=== PATIENT | male | born 1965 | race African-American/Black ===

== ENCOUNTER 2018-03-20 22:48 | Emergency (ER) | payer SELFPAY ==
[~2018-03-20] VITALS: Ht 185.4 cm; Wt 95.3 kg
[2018-03-20 23:08] VITALS: BP 165/85
[2018-03-20] MEDS ORDERED: PROPARACAINE 0.5% OPHTH SOLUTION 15ML BOTTLE. OS ONE (23:15)
[2018-03-20] MEDS ORDERED: PROPARACAINE/FLUORESCEIN 0.5 ML OPHTH DROPS. OS ONE (23:15)
[2018-03-20] MEDS ORDERED: ERYT1OIN6 OS (23:51)
[2018-03-20] MEDS ORDERED: IBUP-1060 PO (23:51)
--- NOTE | 2018-03-20 23:51 | PHYS DOC ---
Adult General Chief Complaint Chief Complaint: FOREIGN BODY/EYES HPI HPI Patient is a 52 year old male who presents with left eye pain and foreign body sensation. This started at approximately 1800 tonight. There is photophobia. As well as photophobia when light is in his right eye only. Patient was driving when this happened. No trauma. No metal on metal pounding or grinding. Watery discharge is present. Pain is moderate to severe. [] Review of Systems Review of Systems Constitutional: Denies fever or chills [] Eyes: See history of present illness[] HENT: Denies nasal congestion or sore throat [] Respiratory: Denies cough or shortness of breath [] Cardiovascular: No chest pain or palpitations[] GI: Denies abdominal pain, nausea, vomiting, bloody stools or diarrhea [] : Denies dysuria or hematuria [] Musculoskeletal: Denies back pain or joint pain [] Integument: Denies rash or skin lesions [] Neurologic: Denies headache, focal weakness or sensory changes [] Endocrine: Denies polyuria or polydipsia [] All other systems were reviewed and found to be within normal limits, except as documented in this note. Current Medications Current Medications Current Medications Medications (Trade) Dose Ordered Sig/Guy Start Time Stop Time Status Last Admin Dose Admin Proparacaine HCl (Alcaine) 1 drop 1X ONCE 03/20/18 23:15 03/20/18 23:16 Proparacaine HCl/ Fluorescein Sodium (Flucaine Eye Drops) 1 drop 1X ONCE 03/20/18 23:15 03/20/18 23:16 Allergies Allergies Allergies Coded Allergies Type Severity Reaction Last Updated Verified No Known Drug Allergies 03/20/18 No Physical Exam Physical Exam Constitutional: Well developed, well nourished, no acute distress, non-toxic appearance. [] HENT: Normocephalic, atraumatic, bilateral external ears normal, oropharynx moist, no oral exudates, nose normal. [] Eyes: PERRLA, EOMI, conjunctiva is injected on the left. No limbic sparing is noted. There is a cloudy ulcer noted at the 7 to 8 o'clock position with respect to his pupil. There is no dendritic pattern, this does stain with fluoroscein, no Mariano's sign, no cell or flare. Anterior chamber is clear. Patient was evaluated with slit lamp. Fundus was normal. Visual acuity was OS 20 /25, OD 20/25, both eyes 20/20 -1[] Neck: Normal range of motion, no tenderness, supple, no stridor. [] Cardiovascular:Heart rate regular rhythm, no murmur [] Lungs & Thorax: Bilateral breath sounds clear to auscultation [] Abdomen: Not examined[] Skin: Warm, dry, no erythema, no rash. [] Back: Not evaluated. [] Extremities: Not evaluated[] Neurologic: Alert and oriented X 3, normal motor function, normal sensory function, no focal deficits noted. [] Psychologic: Affect normal, judgement normal, mood normal. [] EKG EKG [] Radiology/Procedures Radiology/Procedures [] Course & Med Decision Making Course & Med Decision Making Pertinent Labs and Imaging studies reviewed. (See chart for details) ED course: Patient arrived, was placed in bed, in tolerated exam well. Patient had this slitlamp exam performed without any complications. Fornices were swept with cotton swabs and no foreign body was identified. Consultation was made with ophthalmology. Dr. Cladera returned the call graciously, and recommended treatment with Cipro eyedrops as well as erythromycin just before patient goes to sleep. And he will be followed by Dr. Caldera in the morning. Medical decision making: Patient has an ulcer with history of contact lens use, there is no dendritic pattern consistent with viral, there is no perforation of the globe. There is no foreign body that appears to been retained. No acute change in vision.[] Dragon Disclaimer Dragon Disclaimer This electronic medical record was generated, in whole or in part, using a voice recognition dictation system. Departure Departure Impression: Primary Impression: Corneal ulcer of left eye Disposition: HOME, SELF-CARE Condition: GOOD Referrals: MATILDE CALDERA MD Patient Instructions: Corneal Ulcer Additional Instructions: Follow-up with Dr. Caldera tomorrow. Call the office at 9:00 in the morning, [phone]. Follow the instructions provided. Use the Cipro eyedrops every hour until he go to bed then use erythromycin eye ointment just before going to sleep. Then start the Cipro eyedrops again, every hour, when you wake up. Scripts Ibuprofen (IBUPROFEN) 800 Mg Tablet 800 MG PO PRN TID PRN for PAIN, #20 TAB take with food or milk to avoid upsetting stomach Prov: SHIRLEY DO DO 03/20/18 Erythromycin Base (Erythromycin) 1 Gm Oint...g. 1 LONNIE OS HS, #1 MISC Prov: SHIRLEY DO DO 03/20/18 SHIRLEY DO DO Mar 20, 2018 23:51
[2018-03-21] MEDS ORDERED: CIPROFLOXACIN 0.3% OPHTH SOLUTION 5ML BOTTLE. OS SCH
== END 2018-03-21 00:05 | disposition home or self-care (01) ==
LOC: ER 22:48
DX: H16.002 Unspecified corneal ulcer, left eye (principal)
CPT/HCPCS: 65222; 99284

== ENCOUNTER 2020-03-20 03:17 | Inpatient (IN) | payer MEDICAID, OTHER ==
[~2020-03-20] VITALS: Ht 175.3 cm; Wt 88.2 kg
[2020-03-20] VITALS (28 sets, daily range): BP systolic 69–122; BP diastolic 43–74
[~2020-03-20 03:17] MED LIST: ABAC1TAB13 PO; ACET325T21 PO; ASPI81TA59 PO; ATOR80TA72 PO; CLOP75TA PO; ERYT1OIN6 OS; FURO40TA4 PO; GABA300C18 PO; IBUP-1060 PO; IPRA3AMP29 NEB; LISI10TA16 PO; LORA0.5T96 PO; METO-239 PO; METO25TA4 PO; PANT40TA77 PO; POTA20TA4 PO; TRAM50TA PO
[2020-03-20] MEDS ORDERED: MORPHINE SULFATE 4 MG/ML VIAL. IV PRN (04:45)
[2020-03-20] MEDS ORDERED: fentaNYL PF VIAL 100 MCG/2 ML VIAL IV PRN ×2 (04:45)
[2020-03-20] MEDS ORDERED: MORPHINE SULFATE 2 MG/ML VIAL. IV PRN (04:45)
[2020-03-20] MEDS: NOREPINEPHRINE VIAL 8 MG in IV DEXTROSE 5% 250 ML IV PRN ×2 (05:28→15:43)
[2020-03-20] MEDS: HEPARIN 25,000UTS/250ML PREMIX 250 ML IV PRN (05:29)
[2020-03-20] MEDS: MIDAZOLAM 100mg/100ml NS BAG 100 ML IV PRN ×3 (05:30→23:47)
--- NOTE | 2020-03-20 06:00 | NUR ---
Pt arrived to unit at roughly 0310 accompanied by two EMS personnell on betsy. Pt settled into ICU room and attached to equipment and monitors. Pt with pair of socks, underwear, ripped undershirt. Pt BP low with map in 50's, weak pulses BL radial and pedal, ST with occasional PVC's, S1 and S2 equal at [place] point and strongly auscultated at PMI. Pt attached to ventilator with rate of 20, TV of 500, peep of 5 and FiO2 of 100%. Lung sounds coarse anteriorly throughout and diminished but course posteriorly throughout. GI suarez pt has NG in rt nare with placement confirmed by aspiration, air bolus and auscultation, NG then hooked to LIS. suarez pt has 16 Fr narayanan that was placed at [facility] by ED staff, pt is making satisfactory urine output with over 275mL's of yellow clear micturation in the last 3 hours. Skin suarez pt is unremarkable, with sacral skin intact, and no obvious compromise in skin integrity, pt skin congruent with age and ethnic background. Pt is sedated and intubated and YONI mental/ spiritual well being at this time. At roughly 0327, provider MD Harper paged. At 0355 provider MD Harper paged again. Provider paged this RN back shortly after 0400. Provider updated on pt past medical history, events leading to this hospitalization, diagnoses and reason for hospitalization, current medical interventions, vitals, most recent labs. Provider ordered this RN to consult Cardiology, Pulmonology, and Infectious Disease. Provider also ordered this RN to obtain heightened sedation measures for pt including a Fentanyl Gtt and Versed Gtt, Precedex Gtt, NS fluid orders if needed and Acetaminophen if needed for any future fevers. Provider informed that he could either consult Pulmonology later in the morning or inform dayshift of the situation and have them assume the task. This RN then consulted cardiology at roughly 0430. Provider updated on pt past medical history, events leading to this hospitalization, diagnoses and reason for hospitalization, current medical interventions, vitals, most recent labs. Provider was familiar with pt from recent phone call with staff at [facility] ED and asked for this RN to have dayshift RN reach out to [facility] to obtain medical records for pt. Provider also ordered this RN to secure Levo Gtt for pt and if Levo Gtt was ineffective at maintaining feasible BP for pt, to then start pt on Dopamine Gtt. Provider also ordered CBC, BMP, Trop, Mag, Phos, Cardiac Heparin protocol and Lipid Panel for pt. Will pass on report to dayshift RN and expectations of medical provider team.
[2020-03-20] MEDS: IV NORMAL SALINE 1000ML BAG 1,000 ML IV SCH ×2 (06:30→19:32)
--- NOTE | 2020-03-20 07:41 | PDOC1 ---
History and Physical Date of Admission Date of Admission DATE: 03/20/20 TIME: 07:41 Identification/Chief Complaint Chief Complaint admitted to icu , out of hospial arrest CAD s/p PCI/stent, cardiomyopathy, and prior cardiac arrest, presented secondary to cardiac arrest at home. Was at home with partner, Stevenson, watching television. Patient suddenly started breathing more deeply and began gasping for air. Eyes were wide and glassy. Was unresponsive. Partner was unable to feel pulse so he put him on the floor, called EMS and began chest compressions. Partner reports him drinking 3 malt beverages that evening while watching TV. No known sick contacts. EMS arrived within minutes. ROSC returned following one defibrillation. Although partner declined drug use, Narcan was administered en route due to pinpoint pup ils. Limited effect from the Narcan. UDS was + for cocaine. IS COVID 19 PUI hx cardiac arrest on December 19, 2019. Patient was apparently found arrest in his car EMS noted in v-fib. ROSC was achieved following 1 defibrillation and 1 round of epi.//activated as STEMI with LBBB. Emergent cath notable for blockage of left circumflex. //PCI/BMS to the Left circumflex. went into Vfib in laborer laboratory and was initiated on Amiodarone therapy. LVEF noted at 20-25%. Developed DAIJA due to cardiogenic shock. had multiple episodes of bradycardia/significant pauses mostly related to suctioning. then leadlessPPM placement.Treated for Klebsiella PNA as well. course further complicated by GIB requiring tranfusion. 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 Past Medical History Past Medical History PAST MEDICAL HISTORY Past Medical History HIV, HTN, CAD s/p PCI/BMS to the LCx, GIB from arteriovenous malformation, esophagitis, gastritis, DAIJA requiring HD, bradycardia s/p Leadless PPM PAST SURGICAL HISTORY Past Surgical History: Pacemaker, Tonsillectomy, Other (PCI/stent ) FAMILY HISTORY Family History Other (no pertinent history) SOCIAL HISTORY Social History Smoke: <1 pack per day ALCOHOL: none Drugs: None Lives: with Family (with partner ) Cardiovascular: CAD, HTN, Hyperlipidemia Infectious disease: HIV Past Surgical History Past Surgical History: Pacemaker Family History Family History: Hypertension, Other Social History Smoke: <1 pack per day ALCOHOL: occassional Drugs: None, Cocaine Current Medications Current Medications Current Medications Norepinephrine Bitartrate 8 mg/ Dextrose 258 ml @ 18.247 mls/ hr CONT PRN IV PER PROTOCOL Last administered on 03/20/20at 05:28; Start 03/20/20 at 04:15 Dopamine HCl/ Dextrose 250 ml @ 17.681 mls/ hr CONT PRN IV SEE I/O RECORD; Start 03/20/20 at 04:30 Heparin Sodium/ Dextrose 250 ml @ 0 mls/hr CONT PRN IV PER PROTOCOL Last administered on 03/20/20at 05:29; Start 03/20/20 at 04:30 Heparin Sodium (Porcine) (Heparin Sodium) 2,400 unit PRN Q6HRS PRN IV FOR UFH LEVEL LESS THAN 0.2; Start 03/20/20 at 04:30 Fentanyl Citrate 30 ml @ 0 mls/hr CONT PRN IV SEE PROTOCOL Last administered on 03/20/20at 05:27; Start 03/20/20 at 04:45 Lorazepam (Ativan Inj) 1 mg PRN Q1HR PRN IV SEE COMMENTS; Start 03/20/20 at 04:45 Fentanyl Citrate (Fentanyl 2ml Vial) 25 mcg PRN Q1HR PRN IV SEE COMMENTS; Start 03/20/20 at 04:45 Fentanyl Citrate (Fentanyl 2ml Vial) 50 mcg PRN Q1HR PRN IV SEE COMMENTS; Start 03/20/20 at 04:45 Chlorhexidine Gluconate (Peridex) 15 ml BID MM ; Start 03/20/20 at 09:00; Stop 03/20/20 at 07:24; Status DC Famotidine (Pepcid Vial) 20 mg BID IVP ; Start 03/20/20 at 09:00 Morphine Sulfate (Morphine Sulfate) 2 mg PRN Q1HR PRN IV SEE COMMENTS.; Start 03/20/20 at 04:45 Morphine Sulfate (Morphine Sulfate) 4 mg PRN Q1HR PRN IV SEE COMMENTS.; Start 03/20/20 at 04:45 Midazolam HCl 100 ml @ 0 mls/hr CONT PRN IV SEE PROTOCOL Last administered on 03/20/20at 05:30; Start 03/20/20 at 04:45 Docusate Sodium (Colace Solution) 100 mg BID NG ; Start 03/20/20 at 09:00 Sodium Chloride 1,000 ml @ 75 mls/hr [id number] IV ; Start 03/20/20 at 06:30 Active Scripts Active Furosemide 40 Mg Tablet 40 Mg PO DAILY 90 Days Tramadol Hcl 50 Mg Tablet 50 Mg PO PRN Q6HRS PRN 6 Days Metoprolol Succinate ( Xl ) (Metoprolol Succinate) 25 Mg Tab.er.24h 12.5 Mg PO DAILY 90 Days Clopidogrel (Clopidogrel Bisulfate) 75 Mg Tablet 75 Mg PO [id number] 90 Days Lisinopril 10 Mg Tablet 1 Tab PO DAILY 90 Days Atorvastatin Calcium 80 Mg Tablet 80 Mg PO QHS 90 Days Reported Klor-Con M20 (Potassium Chloride) 20 Meq Tab.er.prt 20 Meq PO TID Pantoprazole Sodium (Pantoprazole Sodium) 40 Mg Tablet.dr 40 Mg PO BID Duoneb 0.5-3(2.5) Mg/3 Ml (Albuterol/Ipratropium) 3 Ml Ampul.neb 3 Ml NEB PRN Q6HRS PRN Acetaminophen 325 Mg Tablet 1 Tab PO PRN Q6HRS PRN 24 Days Triumeq Tablet (Abacavir/Dolutegravir/Lamivudi) 1 Each Tablet 1 Tab PO DAILY 30 Days Gabapentin (Gabapentin) 300 Mg Capsule 100 Mg PO TID Children's Aspirin (Aspirin) 81 Mg Tab.chew 1 Tab PO DAILY 30 Days Allergies Allergies: Coded Allergies: No Known Drug Allergies (Unverified , 01/30/20) ROS Review of System sedated on vent Physical Exam Physical Exam SEDATED ON VENT Heart: Regular rate, Normal S1, Normal S2 Lungs: Clear Abdomen: Normal bowel sounds, Soft, No tenderness, No hepatosplenomegaly, No masses Extremities: No clubbing, No cyanosis, No edema, Normal pulses, No tenderness/swelling Skin: No rashes, No breakdown, No significant lesion Abdomen: Soft Rectal Exam: not examined PELVIC: Examination not indicated Extremities: No cyanosis Vitals Vitals Vital Signs Date Time Temp Pulse Resp B/P (MAP) Pulse Ox O2 Delivery O2 Flow Rate FiO2 03/20/20 06:00 108 20 115/71 (86) 99 Ventilator 03/20/20 03:30 97.9 97.9 VTE Prophylaxis Ordered VTE Prophylaxis Devices: Yes VTE Pharmacological Prophylaxi: Yes Assessment/Plan Assessment/Plan ASSESSMENT 1. out of hospital arrest , witness cardiac arrest; Defibrillation // AMI ruled out. 2. H/o Vfib probable ischemic in nature, antiarrhythmics discontinued in past due to QTc prolongation of 600. 3. Acute hypoxic respiratory failure requiring vent support 4. CAD s/p PCI/BMS to the LCx 12/11/19. Treated with ASA,Brilinta initially, which was held due to recurrent GIB requiring transfusions.Due to recent PCI/BMS, Plavix was resumed while at [facility]. ASA was d/c'd 5. Chronic systolic CHF 6. ischemic cardiomyopathy LVEF 20-25%. 7. SSS s/p leadless PPM 8. Hypertension; // requiring pressor support 9. Hypokalemia, hypomagnesemia 10. H/o DAIJA requiringHD; renal function improvedand HD catheter removed 11. 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 HIV 13. Substance abuse; UDS + cocaine , ALCOHOL, TOBACCO plan icu bed cardiology consult pulm consult Device interrogation Replace Mg, lytes Secondary prevention measures as able Resume Plavix. No ASA due to recent GIB Monitor LFTs Pressor support; wean as able Hold lisinopril, Toprol with hypotension Okay to discontinue heparin from a CV standpoint Echo vent management GI CONSULT COVID 19 SCREEN 45 MIN CC TIME Justifications for Admission Other Justification Failure to Thrive GLADYS FAUSTIN MD Mar 20, 2020 07:41
[2020-03-20 07:49] LABS: BASE EXCESS ABG -3 mmol/L (-3-3); HCO3 ABG 21 mmol/L (21-28); PCO2 ABG 36 mmHg (35-46); PO2 ABG 103 mmHg (75-108); SAT O2 ABG 98 % (92-99)
[2020-03-20] MEDS: DOCUSATE 100 MG/10 ML SOLUTION. NG SCH ×2 (08:07→20:17)
[2020-03-20 08:09] LABS: FIO2 ABG 100%+5
[2020-03-20] MEDS: ACETAMINOPHEN 650 MG/20.3 ML SOLUTION. PEG PRN ×2 (08:55→15:52)
[2020-03-20] MEDS ORDERED: FAMOTIDINE 20 MG/2 ML VIAL IVP SCH ×2 (09:00→11:00)
[2020-03-20] MEDS ORDERED: CHLORHEXIDINE 0.12% 15 ML MOUTHWASH. MM SCH (09:00)
--- NOTE | 2020-03-20 09:15 | PDOC2 ---
GREGORY REYNA DESKTOP TECHNICIAN 03/20/20 0914: CARDIAC CONSULT DATE OF CONSULT Date of Consult DATE: 03/20/20 TIME: 09:13 REASON FOR CONSULT Reason for Consult: Cardiac arrest REFERRING PHYSICIAN Referring Physician: Dr. Harper SOURCE Source: Chart review, Patient HISTORY OF PRESENT ILLNESS HISTORY OF PRESENT ILLNESS This is a 54 yo male, with a history of CAD s/p PCI/stent, cardiomyopathy, and prior cardiac arrest, presented secondary to cardiac arrest at home. Was at home with partner, Stevenson, watching television. Patient suddenly started breathing more deeply and began gasping for air. Eyes were wide and glassy. Was unresponsive. Partner was unable to feel pulse so he put him on the floor, called EMS and b genevieve chest compressions. Partner reports him drinking 3 malt beverages that evening while watching TV. No known sick contacts. EMS arrived within minutes. Rhythm not reported upon their arrival. ROSC returned following one defibrillation. Although partner declined drug use, Narcan was administered en route due to pinpoint pupils. Limited effect from the Narcan. UDS was + for cocaine. WBC 12.5, hgb 10.0. Na 144, K 3.1, Mg 2.0, BUN 5, Cr 1.0. Troponin 0.04. Lactic 5.3. CXR without pulm edema. CT head without acute findings. Patient was treated at [facility] secondary to cardiac arrest on December 19, 2019. Patient was apparently found arrested in his car up against the median. EMS noted in v-fib. ROSC was achieved following 1 defibrillation and 1 round of epi. He was activated as STEMI with LBBB. Emergent cath notable for blockage of left circumflex. Underwent PCI/BMS to the Left circumflex. 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 LVEF noted at 20-25%. Developed DAIJA due to cardiogenic shock. Over the next week, had multiple episodes of bradycardia/significant pauses mostly related to suctioning. UnderwentleadlessPPM placement.Treated for Klebsiella PNA as well. Hospital course further complicated by GIB requiring tranfusion. 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 Due to worsening DAIJA, HD was initiated. Due to recurrent GIB, patient underwent repeat EGD showing esophagitis, gastritis and duodenitis, but all without bleeding. A potential bleeding source in the cecum was clipped and a deep anal rectal ulcer 4 cm in length was noted.Brilinta was held due to recurrent bleeding. ASA, statin, and PPI was continued. Patient was transferred to [facility] for ongoing care. Was followed by our cardiac service while at [facility]. Hemoglobin remained stable. Due to recent PCI/stent placement, patient was placed on Plavix therapy and has had no further bleeding issues. PAST MEDICAL HISTORY Past Medical History HIV, HTN, CAD s/p PCI/BMS to the LCx, GIB from arteriovenous malformation, esophagitis, gastritis, DAIJA requiring HD, bradycardia s/p Leadless PPM PAST SURGICAL HISTORY Past Surgical History: Pacemaker, Tonsillectomy, Other (PCI/stent ) FAMILY HISTORY Family History Other (no pertinent history) SOCIAL HISTORY Social History Smoke: <1 pack per day ALCOHOL: none Drugs: None Lives: with Family (with partner ) CURRENT MEDICATIONS CURRENT MEDICATIONS Current Medications Medications (Trade) Dose Ordered Sig/Guy Route PRN Reason Start Time Stop Time Status Last Admin Dose Admin Norepinephrine Bitartrate 8 mg/ Dextrose 258 ml @ 18.247 mls/ hr CONT PRN IV PER PROTOCOL 03/20/20 04:15 03/20/20 05:28 Heparin Sodium/ Dextrose 250 ml @ 0 mls/hr CONT PRN IV PER PROTOCOL 03/20/20 04:30 03/20/20 05:29 Fentanyl Citrate 30 ml @ 0 mls/hr CONT PRN IV SEE PROTOCOL 03/20/20 04:45 03/20/20 05:27 Famotidine (Pepcid Vial) 20 mg BID IVP 03/20/20 09:00 03/20/20 08:07 Midazolam HCl 100 ml @ 0 mls/hr CONT PRN IV SEE PROTOCOL 03/20/20 04:45 03/20/20 05:30 Docusate Sodium (Colace Solution) 100 mg BID NG 03/20/20 09:00 03/20/20 08:07 Sodium Chloride 1,000 ml @ 75 mls/hr [id number] IV 03/20/20 06:30 03/20/20 06:30 Acetaminophen (Tylenol) 650 mg PRN Q6HRS PRN PEG MILD PAIN / TEMP > 100.3'F 03/20/20 09:00 03/20/20 08:55 ALLERGIES ALLERGIES: Coded Allergies: No Known Drug Allergies (Unverified , 01/30/20) ROS Review of System unobtainable PHYSICAL EXAM General: Other (sedated ) HEENT: Atraumatic Lungs: Other (MV) Heart: Regular rate Abdomen: Soft Extremities: No edema, Normal pulses Skin: No significant lesion Psych/Mental Status: Other (sedated ) MUSCULOSKELETAL: Osteoarthritic changes both hands VITALS/I&O VITALS/I&O: Vital Signs Date Time Temp Pulse Resp B/P (MAP) Pulse Ox O2 Delivery O2 Flow Rate FiO2 03/20/20 07:40 100 Ventilator 03/20/20 07:00 109 20 93/60 (71) 03/20/20 03:30 97.9 97.9 I & O 03/19/20 03/19/20 03/20/20 15:00 23:00 07:00 Output Total 325 ml Balance -325 ml LABS Lab: Laboratory Tests Test 03/20/20 07:40 O2 Saturation 98 % (92-99) Arterial Blood pH 7.39 (7.35-7.45) Arterial Blood pCO2 at Patient Temp 36 mmHg (35-46) Arterial Blood pO2 at Patient Temp 103 mmHg (75-108) Arterial Blood HCO3 21 mmol/L (21-28) Arterial Blood Base Excess -3 mmol/L (-3-3) FiO2 100%+5 ASSESSMENT/PLAN ASSESSMENT/PLAN 1. OOH, witness cardiac arrest; Rhythm upon arrival unknown, although shockable as he was defibrillated x1 with ROSC. 2. Mild troponin elevation; trop highest 0.3 s/p resuscitation. EKG with LBBB 3. H/o Vfib OOH arrest; probable ischemic in nature, antiarrhythmics discontinued in past due to QTc prolongation of 600. EKG at [facility] with QTc 507, 528. 4. Acute respiratory failure secondary to above; s/p intubation 5. CAD s/p PCI/BMS to the LCx 12/11/19. Treated with ASA,Brilinta initially, which was held due to recurrent GIB requiring transfusions.Due to recent PCI/BMS, Plavix was resumed while at [facility]. ASA was discontinued.No further bleeding concerns. 6. Chronic systolic CHF 7. ICM; LVEF 20-25%. 8. SSS s/p leadless PPM implantation ([employer]tronic Micra). Device does not store history rhythm data. 9. Hypertension; low end. requiring pressor support 10. Hypokalemia, hypomagnesemia 11. H/o DAIJA requiringHD; renal function improvedand HD catheter removed 12. 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 HIV 14. Substance abuse; UDS + cocaine at [facility] Recommendations Replace Mg Secondary prevention measures as able Resume Plavix. No ASA due to recent GIB Pressor support; wean as able Hold lisinopril, Toprol with hypotension Continue heparin for at least 24 hrs. Unable to start antiarrhythmic therapy due to prolonged QT Echo to assess LV systolic function Lung optimization, vent management as per pulm Supportive care YAMILE HDEZ MD 03/20/20 1719: CARDIAC CONSULT ASSESSMENT/PLAN ASSESSMENT/PLAN Patient seen and evaluated I agree with our nurse practitioners assessment and plan as above. OOH, witness cardiac arrest; Rhythm upon arrival unknown, although shockable as he was defibrillated x1 with ROSC. Mild troponin elevation; trop highest 0.3 s/p resuscitation. EKG with LBBB. History of coronary artery disease as below. We will check an echo when able for LV function. H/o Vfib OOH arrest; probable ischemic in nature, antiarrhythmics discontinued in past due to QTc prolongation of 600. EKG at [facility] with QTc 507, 528. Unable to start antiarrhythmic treatment due to prolonged QT. Acute respiratory failure secondary to above; s/p intubation CAD s/p PCI/BMS to the LCx 12/11/19. Treated with ASA,Brilinta initially, which was held due to recurrent GIB requiring transfusions.Due to recent PCI/BMS, Plavix was resumed while at [facility]. ASA was discontinued.No further bleeding concerns. ICM; LVEF SSS s/p leadless PPM implantation ([employer]tronic Micra). Device does not store history rhythm data. Hypertension; low end. requiring pressor support HIV Substance abuse; UDS + cocaine at [facility] GREGORY REYNA APRN Mar 20, 2020 09:14 YAMILE HDEZ MD Mar 20, 2020 17:19
[2020-03-20] MEDS ORDERED: PIP/TAZO PER PHARMACY MC PRN (09:30)
[2020-03-20] MEDS ORDERED: MAGNESIUM SULFATE 2GM 50 ML IV ONE (09:45)
[2020-03-20] MEDS: PIPERACILLIN/TAZOBACTAM 3.375 GM in IV NORMAL SALINE 50ML 50 ML IV SCH ×3 (10:21→23:47)
[2020-03-20] MEDS ORDERED: 0.9 % SODIUM CHLORIDE 10 ML DISP.SYRIN. IV PRN (10:30)
--- NOTE | 2020-03-20 11:11 | CONS ---
DATE OF CONSULTATION: REFERRING PHYSICIAN: Dr. Harper. REASON FOR CONSULTATION: Status post cardiac arrest, sepsis. HISTORY OF PRESENT ILLNESS: A 54-year-old male with history of coronary artery disease, status post PCI stent, cardiomyopathy, cardiac arrest on 12/19/2019 at [facility] status post V-Fib STEMI with left bundle branch block emergent cardiac catheterization bare metal stent placement V-Fib amiodarone, status post pacemaker placement, 12/28/2019, necrotizing Klebsiella pneumoniae, HIV, hypertension, coronary artery disease, hyperlipidemia, multiple GI bleeds with AV malformation, esophagitis, gastritis, duodenitis, history of rectal abscess, was at home with his partner watching TV. The patient is currently intubated in ICU. History obtained from chart and medical staff. The patient suddenly started breathing more deeply and began gasping, eyes were wide and glassy. He was unresponsive, partner was unable to feel pulse so put him on the floor. EMS was called, began chest compression. He underwent a CPR, Narcan was administered in route due to pinpoint pupils with minimal effect. UDS was positive for cocaine. WBC was 12.5. Lactate of 5.3, creatinine of 1.0. Troponin of 0.04. Chest x-ray showed no infiltrate. CT without acute findings. He was transferred to [facility] for further evaluation and treatment. The patient has a history of HIV for which he has been on Triumeq. Patient also required hemodialysis during his last hospitalization at [facility] and has had intermittent need for dialysis per the patient's partner report in the past. The patient's last HIV test was done at [facility], CD4 403 on 01/16, viral load of less than 20 on 01/23, the patient received one dose of Zosyn at [place], currently his fever is 101. PAST MEDICAL HISTORY: HIV, stable hypertension, coronary artery disease, status post PCI BM S2, left coronary GI bleed with arteriovenous malformation esophagitis, gastritis, DAIJA, requiring HD status post PPM. PAST SURGICAL HISTORY: Pacemaker PCI. FAMILY HISTORY: Noncontributory. SOCIAL HISTORY: Smoking less than 1 pack per day. ETOH: None. Drugs, cocaine positive on UDS. Lives with partner. CURRENT MEDICATIONS: Norepinephrine, heparin, fentanyl, famotidine, midazolam, docusate, acetaminophen, got one dose of Zosyn at [place]. ALLERGIES: No known drug allergies. REVIEW OF SYSTEMS: Unable to obtain. PHYSICAL EXAMINATION: VITAL SIGNS: Temperature 97.9, current temperature 101, pulse 109, respiratory rate 20, blood pressure 93/60. GENERAL: Intubated, sedated. HEENT: Conjunctival suffusion. Pupils equal, reactive. ETT OGT present. NECK: Supple. LUNGS: Clear anteriorly. HEART: S1, S2, tachycardia. ABDOMEN: Obese, mildly distended. Bowel sounds present. EXTREMITIES: No edema or cyanosis. DERMATOLOGIC: Warm and dry. No generalized rash. NEUROLOGIC: Unable to assess. IMPRESSION: 1. Witnessed cardiac arrest, status post defibrillation. 2. Fever 3. Leukocytosis and lactic acidosis. 4. Human immunodeficiency virus, CD4 was 403 on 01/16 viral load less than 20 on 01/23on Triumeq. 5. Acute hypoxic respiratory failure 6. History of ventricular tachycardia, Coronary artery disease, status post PCI. 7. Status post pacemaker for bradycardia 12/27 at [facility]. 8. History of acute kidney injury, on hemodialysis in the past. 9. 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 10. Substance dependence. UDS positive for cocaine at outside hospital. 11. Hypertension/hyperlipidemia 12. Hypokalemia/hypomagnesemia. 13. H/O Chronic systolic congestive heart failure. 14. History of rectal abscess. 15. History of Necrotizing Pneumonia with Klebsiella at [facility] RECOMMENDATIONS: 1. Start Zosyn. May need renal dosing. 2. Start oral vancomycin for prophylaxis with history of Clostridium difficile. 3. Start Triumeq. Discussed with pharmacy 4. Follow up labs and cultures. 5. Critically ill. CCT 40 mins Discussed with nursing. Thank you for allowing me to participate in this patient's care. If you have any questions, do not hesitate to contact me. MILLY NICOLE MD DR: BENY/bryn JOB#: [id number] / [id number] OLIMPIAD
--- NOTE | 2020-03-20 11:41 | PDOC2 ---
GI CONSULT Date of Service: DATE: 03/20/20 TIME: 11:10 Reason For Consult: recent GI bleed HPI: HPI: 54 y/o male from [facility] after cardiac arrest at home. Per other notes - h/o cardiac arrest treated @ [facility] [place] in 11/2019 w/ emergent cardiac cath/stent placement. Developed GI bleeding during hospitalization; EGD noted duodenal AVM that was clipped. Seems then underwent another EGD and colonoscopy for recurrent bleeding that showed non-bleeding esophagitis, gastritis, and duodenitis, and potential bleeding source in the cecum was clipped and 4cm deep anal rectal ulcer was noted. Brilinta was stopped, ASA and PPI continued, and Plavix added per cardiology @ [facility] w/ stable Hgb and w/o recurrent bleeding. Additional notes mention h/o rectal abscess and C Diff. At [facility], Hgb 10 w/ MCV 83, normal plt and INR, Cr 1, BUN 5, lactic 5.3, normal LFTs except AST 63, +cocaine. D/w nurse - reports KUB @ [facility] w/ possible ileus and negative rapid COVID test. No GI bleeding. [place] 01/2020: dysphagia of the pharyngeal phases with deep laryngeal penetration with thin liquids, successfully addressed with smaller fluid boluses or chin tuck. No evidence of aspiration. PMH: PMH: HIV, HTN, CAD, cardiomyopathy, pneumonia, DAIJA requiring HD pacemaker, tonsillectomy, PCI/stent FH: Family History: Other (unable to obtain) Social History: Smoke: <1 pack per day ALCOHOL: occassional Drugs: Cocaine ROS: Unable to obtain. Vitals: Vitals: Vital Signs Date Time Temp Pulse Resp B/P (MAP) Pulse Ox O2 Delivery O2 Flow Rate FiO2 03/20/20 11:00 87 24 72/47 (55) 100 Ventilator 03/20/20 08:00 103.1 103.1 Labs: Labs: Laboratory Tests Test 03/20/20 07:40 O2 Saturation 98 % (92-99) Arterial Blood pH 7.39 (7.35-7.45) Arterial Blood pCO2 at Patient Temp 36 mmHg (35-46) Arterial Blood pO2 at Patient Temp 103 mmHg (75-108) Arterial Blood HCO3 21 mmol/L (21-28) Arterial Blood Base Excess -3 mmol/L (-3-3) FiO2 100%+5 Allergies: Coded Allergies: No Known Drug Allergies (Unverified , 01/30/20) Medications: Current Medications Medications (Trade) Dose Ordered Sig/Guy Route PRN Reason Start Time Stop Time Status Last Admin Dose Admin Norepinephrine Bitartrate 8 mg/ Dextrose 258 ml @ 18.247 mls/ hr CONT PRN IV PER PROTOCOL 03/20/20 04:15 03/20/20 05:28 Heparin Sodium/ Dextrose 250 ml @ 0 mls/hr CONT PRN IV PER PROTOCOL 03/20/20 04:30 03/20/20 05:29 Fentanyl Citrate 30 ml @ 0 mls/hr CONT PRN IV SEE PROTOCOL 03/20/20 04:45 03/20/20 05:27 Famotidine (Pepcid Vial) 20 mg BID IVP 03/20/20 09:00 03/20/20 08:07 Midazolam HCl 100 ml @ 0 mls/hr CONT PRN IV SEE PROTOCOL 03/20/20 04:45 03/20/20 05:30 Docusate Sodium (Colace Solution) 100 mg BID NG 03/20/20 09:00 03/20/20 08:07 Sodium Chloride 1,000 ml @ 75 mls/hr [id number] IV 03/20/20 06:30 03/20/20 06:30 Acetaminophen (Tylenol) 650 mg PRN Q6HRS PRN PEG MILD PAIN / TEMP > 100.3'F 03/20/20 09:00 03/20/20 08:55 Piperacillin Sod/ Tazobactam Sod 3.375 gm/Sodium Chloride 50 ml @ 100 mls/hr Q6HRS IV 03/20/20 10:00 03/20/20 10:21 Magnesium Sulfate 50 ml @ 25 mls/hr 1X ONCE IV 03/20/20 09:45 03/20/20 11:44 03/20/20 10:21 Imaging: Imaging: CXR 03/20 pending PE: GEN: intubated HEENT: Atraumatic LUNGS: vent/clear HEART: RR ABD: soft and round, quiet - a couple gurgles to right EXTREMITY: No edema SKIN: No rashes, no jaundice NEURO/PSYCH: sedated A/P: A/P: S/p arrest Fever, leukocytosis, lactic acidosis CAD w/ stent, CHF - on Plavix and ASA Anemia H/o GI bleeding - none now - duodenal AVM clipped, possible bleeding source in cecum clipped, and rectal ulcer noted on 'scopes @ [facility] H/o C Diff H/o HIV, +cocaine, rapid COVID negative -- 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 Question of trying NG feeds - will d/w Dr. Barrera/review KUBeltran from [facility]. YNES CLEARY Mar 20, 2020 11:41
[2020-03-20] MEDS: CLOPIDOGREL BISULFATE 75 MG TABLET PO SCH (11:51)
[2020-03-20] MEDS: PANTOPRAZOLE IV PUSH 40 MG VIAL. IVP SCH (12:30)
[2020-03-20 13:49] LABS: BASO # 0.1 x10^3/uL (0.0-0.2); BASO % 0 % (0-3); EOS % 0 % (0-3); HEMATOCRIT 30.1 % (39.0-53.0); HEMOGLOBIN 9.3 g/dL (13.0-17.5); LYMPH # 4.6 x10^3/uL (1.0-4.8); LYMPH % 24 % (24-48); MEAN CORPUSCULAR HEMOGLOBIN 25 pg (25-35); MEAN CORPUSCULAR HGB CONC 31 g/dL (31-37); MEAN CORPUSCULAR VOLUME 80 fL (79-100); MONO # 0.7 x10^3/uL (0.0-1.1); MONO % 4 % (0-9); NEUT % 72 % (31-73); PLATELET COUNT 334 x10^3/uL (140-400); RED BLOOD COUNT 3.76 x10^6/uL (4.30-5.70); RED CELL DISTRIBUTION WIDTH 17.2 % (11.5-14.5); WHITE BLOOD COUNT 19.5 x10^3/uL (4.0-11.0)
[2020-03-20] MEDS ORDERED: POTASSIUM BICARB 20 MEQ EFFERVESCENT TABLET. PEG ONE (14:00)
[2020-03-20 14:14] LABS: ALBUMIN 2.5 g/dL (3.4-5.0); ALBUMIN/GLOBULIN RATIO 0.6 (1.0-1.7); CALCIUM 7.6 mg/dL (8.5-10.1); CHOLESTEROL/HDL RATIO 2.6; CREATININE 1.1 mg/dL (0.7-1.3); GFR 85.1; MAGNESIUM 2.3 mg/dL (1.8-2.4); POTASSIUM 3.4 mmol/L (3.5-5.1); TOTAL BILIRUBIN 0.9 mg/dL (0.2-1.0); TOTAL PROTEIN 6.5 g/dL (6.4-8.2)
--- NOTE | 2020-03-20 14:41 | PDOC ---
PULMONARY PROGRESS NOTES DATE: 03/20/20 TIME: 14:23 Vitals Vital Signs Date Time Temp Pulse Resp B/P (MAP) Pulse Ox O2 Delivery O2 Flow Rate FiO2 03/20/20 14:00 92 24 103/56 (72) 100 Ventilator 03/20/20 12:00 102.1 102.1 Lungs: Clear Labs Laboratory Tests Test 03/20/20 07:40 03/20/20 13:10 O2 Saturation 98 % (92-99) Arterial Blood pH 7.39 (7.35-7.45) Arterial Blood pCO2 at Patient Temp 36 mmHg (35-46) Arterial Blood pO2 at Patient Temp 103 mmHg (75-108) Arterial Blood HCO3 21 mmol/L (21-28) Arterial Blood Base Excess -3 mmol/L (-3-3) FiO2 100%+5 White Blood Count 19.5 x10^3/uL (4.0-11.0) Red Blood Count 3.76 x10^6/uL (4.30-5.70) Hemoglobin 9.3 g/dL (13.0-17.5) Hematocrit 30.1 % (39.0-53.0) Mean Corpuscular Volume 80 fL (79-100) Mean Corpuscular Hemoglobin 25 pg (25-35) Mean Corpuscular Hemoglobin Concent 31 g/dL (31-37) Red Cell Distribution Width 17.2 % (11.5-14.5) Platelet Count 334 x10^3/uL (140-400) Neutrophils (%) (Auto) 72 % (31-73) Lymphocytes (%) (Auto) 24 % (24-48) Monocytes (%) (Auto) 4 % (0-9) Eosinophils (%) (Auto) 0 % (0-3) Basophils (%) (Auto) 0 % (0-3) Neutrophils # (Auto) 14.0 x10^3/uL (1.8-7.7) Lymphocytes # (Auto) 4.6 x10^3/uL (1.0-4.8) Monocytes # (Auto) 0.7 x10^3/uL (0.0-1.1) Eosinophils # (Auto) 0.0 x10^3/uL (0.0-0.7) Basophils # (Auto) 0.1 x10^3/uL (0.0-0.2) Sodium Level 142 mmol/L (136-145) Potassium Level 3.4 mmol/L (3.5-5.1) Chloride Level 108 mmol/L (98-107) Carbon Dioxide Level 23 mmol/L (21-32) Anion Gap 11 (6-14) Blood Urea Nitrogen 9 mg/dL (8-26) Creatinine 1.1 mg/dL (0.7-1.3) Estimated GFR (Cockcroft-Gault) 85.1 BUN/Creatinine Ratio 8 (6-20) Glucose Level 150 mg/dL (70-99) Calcium Level 7.6 mg/dL (8.5-10.1) Magnesium Level 2.3 mg/dL (1.8-2.4) Total Bilirubin 0.9 mg/dL (0.2-1.0) Aspartate Amino Transf (AST/SGOT) 36 U/L (15-37) Alanine Aminotransferase (ALT/SGPT) 23 U/L (16-63) Alkaline Phosphatase 82 U/L (46-116) Lactate Dehydrogenase 428 U/L (85-227) Troponin I Quantitative 0.398 ng/mL (0.000-0.055) Total Protein 6.5 g/dL (6.4-8.2) Albumin 2.5 g/dL (3.4-5.0) Albumin/Globulin Ratio 0.6 (1.0-1.7) Triglycerides Level 50 mg/dL (0-150) Cholesterol Level 84 mg/dL (0-200) LDL Cholesterol, Calculated 42 mg/dL (0-100) VLDL Cholesterol, Calculated 10 mg/dL (0-40) Non-HDL Cholesterol Calculated 52 mg/dL (0-129) HDL Cholesterol 32 mg/dL (40-60) Cholesterol/HDL Ratio 2.6 Thyroid Stimulating Hormone (TSH) 0.564 uIU/mL (0.358-3.74) Laboratory Tests Test 03/20/20 07:40 03/20/20 13:10 O2 Saturation 98 % (92-99) Arterial Blood pH 7.39 (7.35-7.45) Arterial Blood pCO2 at Patient Temp 36 mmHg (35-46) Arterial Blood pO2 at Patient Temp 103 mmHg (75-108) Arterial Blood HCO3 21 mmol/L (21-28) Arterial Blood Base Excess -3 mmol/L (-3-3) FiO2 100%+5 White Blood Count 19.5 x10^3/uL (4.0-11.0) Red Blood Count 3.76 x10^6/uL (4.30-5.70) Hemoglobin 9.3 g/dL (13.0-17.5) Hematocrit 30.1 % (39.0-53.0) Mean Corpuscular Volume 80 fL (79-100) Mean Corpuscular Hemoglobin 25 pg (25-35) Mean Corpuscular Hemoglobin Concent 31 g/dL (31-37) Red Cell Distribution Width 17.2 % (11.5-14.5) Platelet Count 334 x10^3/uL (140-400) Neutrophils (%) (Auto) 72 % (31-73) Lymphocytes (%) (Auto) 24 % (24-48) Monocytes (%) (Auto) 4 % (0-9) Eosinophils (%) (Auto) 0 % (0-3) Basophils (%) (Auto) 0 % (0-3) Neutrophils # (Auto) 14.0 x10^3/uL (1.8-7.7) Lymphocytes # (Auto) 4.6 x10^3/uL (1.0-4.8) Monocytes # (Auto) 0.7 x10^3/uL (0.0-1.1) Eosinophils # (Auto) 0.0 x10^3/uL (0.0-0.7) Basophils # (Auto) 0.1 x10^3/uL (0.0-0.2) Sodium Level 142 mmol/L (136-145) Potassium Level 3.4 mmol/L (3.5-5.1) Chloride Level 108 mmol/L (98-107) Carbon Dioxide Level 23 mmol/L (21-32) Anion Gap 11 (6-14) Blood Urea Nitrogen 9 mg/dL (8-26) Creatinine 1.1 mg/dL (0.7-1.3) Estimated GFR (Cockcroft-Gault) 85.1 BUN/Creatinine Ratio 8 (6-20) Glucose Level 150 mg/dL (70-99) Calcium Level 7.6 mg/dL (8.5-10.1) Magnesium Level 2.3 mg/dL (1.8-2.4) Total Bilirubin 0.9 mg/dL (0.2-1.0) Aspartate Amino Transf (AST/SGOT) 36 U/L (15-37) Alanine Aminotransferase (ALT/SGPT) 23 U/L (16-63) Alkaline Phosphatase 82 U/L (46-116) Lactate Dehydrogenase 428 U/L (85-227) Troponin I Quantitative 0.398 ng/mL (0.000-0.055) Total Protein 6.5 g/dL (6.4-8.2) Albumin 2.5 g/dL (3.4-5.0) Albumin/Globulin Ratio 0.6 (1.0-1.7) Triglycerides Level 50 mg/dL (0-150) Cholesterol Level 84 mg/dL (0-200) LDL Cholesterol, Calculated 42 mg/dL (0-100) VLDL Cholesterol, Calculated 10 mg/dL (0-40) Non-HDL Cholesterol Calculated 52 mg/dL (0-129) HDL Cholesterol 32 mg/dL (40-60) Cholesterol/HDL Ratio 2.6 Thyroid Stimulating Hormone (TSH) 0.564 uIU/mL (0.358-3.74) Medications Active Scripts Medications Dose Route/Sig Max Daily Dose Days Date Category Furosemide 40 Mg Tablet 40 Mg PO DAILY 02/02/20 Rx Tramadol Hcl 50 Mg Tablet 50 Mg PO PRN Q6HRS PRN 6 02/02/20 Rx Metoprolol Succinate ( Xl ) (Metoprolol Succinate) 25 Mg Tab.er.24h 12.5 Mg PO DAILY 02/02/20 Rx Clopidogrel (Clopidogrel Bisulfate) 75 Mg Tablet 75 Mg PO DAILYWBKFT 02/02/20 Rx Lisinopril 10 Mg Tablet 1 Tab PO DAILY 02/02/20 Rx Atorvastatin Calcium 80 Mg Tablet 80 Mg PO QHS 02/02/20 Rx Klor-Con M20 (Potassium Chloride) 20 Meq Tab.er.prt 20 Meq PO TID 01/31/20 Reported Pantoprazole Sodium (Pantoprazole Sodium) 40 Mg Tablet.dr 40 Mg PO BID 01/31/20 Reported Duoneb 0.5-3(2.5) Mg/3 Ml (Albuterol/Ipratropium) 3 Ml Ampul.neb 3 Ml NEB PRN Q6HRS PRN 01/31/20 Reported Acetaminophen 325 Mg Tablet 1 Tab PO PRN Q6HRS PRN 24 01/31/20 Reported Triumeq Tablet (Abacavir/Dolutegravir/Lamivudi) 1 Each Tablet 1 Tab PO DAILY 30 01/31/20 Reported Gabapentin (Gabapentin) 300 Mg Capsule 100 Mg PO TID 01/31/20 Reported Children's Aspirin (Aspirin) 81 Mg Tab.chew 1 Tab PO DAILY 30 01/31/20 Reported Impression . Full note dictated Out of hospital cardiopulmonary arrest, respiratory failure secondary to arrhythmia, coronary artery disease, CHF. Possible pneumonia DAMIÁN HASTINGS MD Mar 20, 2020 14:41
[2020-03-20 14:49] LABS: % BANDS 13 % (0-9); % LYMPHS 22 % (24-48); ANISOCYTOSIS SLIGHT; HYPOCHROMIA SLIGHT; PLT ESTIMATE ADEQUATE (ADEQUATE); POIKILOCYTOSIS SLIGHT
[2020-03-20 14:50] LABS: % MONOS 1 % (0-10); % SEGS 64 % (35-66)
--- NOTE | 2020-03-20 15:06 | RAD ---
Single view of the chest. 03/20/2020 10:11 AM Indication: Reason: post code / Spl. Instructions: / History: Comparison: Chest radiograph January 30, 2020 Findings: There is an endotracheal tube approximately 4.9 cm above the chica. There is an enteric tu be extending below the diaphragm. There is no pneumothorax. No definitive effusion is seen. The heart is markedly enlarged, and mildly more prominent than on comparison study. There is central vascular congestion with interstitial thickening and patchy alveolar infiltrates throughout the bilateral lung s. The appearance most likely reflects pulmonary edema in the setting of heart failure. Note that an infectious process cannot be excluded radiographically. Cardiac monitoring device projects over the heart. No acute osseous changes are identified. IMPRESSION: 1.Interval intubation and placement of enteric tube as described in expected radiographic position 2. Cardiomegaly, central vascular congestion, interstitial thickening, and patchy alveolar infiltrate s throughout the lungs. As described above, appearance favors pulmonary edema setting of heart fail ure. Electronically signed by: Lukas Whitehead MD (03/20/2020 3:03 PM) [id number]
--- NOTE | 2020-03-20 15:18 | NUR ---
SS following for discharge planning. SS reviewed pt chart and discussed with pt RN. Pt is from home and is currently on the vent at 90%. Pt on IV Zosyn. Not stable. SS will continue to follow for discharge planning.
--- NOTE | 2020-03-20 15:52 | CONS ---
DATE OF CONSULTATION: 03/20/2020 ATTENDING PHYSICIAN: Abdon Kendall MD CONSULTING PHYSICIAN: Damián Hastings MD REASON FOR CONSULTATION: The patient is seen in pulmonary consultation at the request of Dr. Kendall for acute respiratory failure. HISTORY OF PRESENT ILLNESS: The patient is a 54-year-old that has a history of coronary artery disease, status post previous stent placement; cardiomyopathy; 5 cardiac arrests, presented after having an [id number] cardiopulmonary arrest. According to the current documentation, the patient was watching television, suddenly became to have some difficulty breathing, gasping for air. He became unresponsive. The partner at home was unable to feel pulse. EMR was summoned, chest compression was started. Upon EMS arrival, return of spontaneous circulation was obtained after 1 defibrillation. There is no history of any drug use. UDS was positive for cocaine. The patient is currently in the intensive care unit on mechanical ventilation. He has been seen by Cardiology. The patient has a prior history of being treated at [facility] after suffering a cardiac arrest on 12/18. He has a prior history of AFib, previous non-ST segment elevation VT. He has had previous emergent cardiac catheterization. He has also had a previous pacemaker implantation. He has had a prolonged hospitalization and at one point, he was hospitalized at [facility], treated for Klebsiella pneumonia, previous GI bleed, requiring transfusion. He has had EGD that noted duodenal AV malformation requiring clipping. He also had acute kidney injury, was on hemodialysis in the past. PAST MEDICAL HISTORY: HIV; hypertension; coronary artery disease, status post previous PCI and pacemaker implantation. He has a history of acute kidney injury, esophagitis, GI bleed. PAST SURGICAL HISTORY: Status post pacemaker and tonsillectomy, PCI and stent placement. FAMILY HISTORY: Unknown. SOCIAL HISTORY: There is a history of tobacco use. REVIEW OF SYSTEMS: Unobtainable secondary to the patient's condition. PHYSICAL EXAMINATION: VITAL SIGNS: Stable. O2 saturation was greater than 92%, currently on assist control ventilation, rate of 20, tidal volume 500. HEENT: Eyes, the sclerae were nonicteric. NECK: Jugular venous could not be assessed secondary to body habitus. CHEST: Full expansion. LUNGS: Adequate flow with no wheezes. CARDIOVASCULAR: Regular rate and rhythm with S1, S2, no S3. ABDOMEN: Soft. EXTREMITIES: No clubbing, cyanosis, some edema. LABORATORY DATA: Reviewed. White count was elevated. Hemoglobin and hematocrit were noted. Electrolytes were noted. Arterial blood gas: pH of 7.39, PaCO2 of 36, pO2 of 103. Chest x-ray revealed bilateral pulmonary infiltrates. IMPRESSION: 1. Acute hypoxemic respiratory failure secondary to qyr-ml-exwfesch cardiopulmonary arrest. 2. History of ventricular fibrillation with previous cnp-ij-sghvpldw cardiac arrest. 3. History of coronary artery disease, status post percutaneous coronary intervention to the circumflex. 4. History of gastrointestinal bleed. 5. Chronic systolic heart failure. 6. Ischemic cardiomyopathy, ejection fraction 20-25%. 7. Status post pacemaker implantation. 8. Hypertension. 9. Hypokalemia. 10. Previous kidney injury requiring hemodialysis. 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 12. Human immunodeficiency virus. 13. Polysubstance use. PLAN: 1. Continue current support with mechanical ventilation. Arterial blood gas revealed pH of 7.39, PaCO2 of 36, pO2 of 103, decrease FiO2 as tolerated. 2. Consult Cardiology, already performed. 3. Empiric antibiotics. 4. Consult GI. 5. Replace magnesium. 6. Anticoagulation per Cardiology. 7. Pressors for mean arterial pressure above 60. I do appreciate the privilege in sharing in the patient's care. DAMIÁN HASTINGS MD DR: LUPE/bryn JOB#: [id number] / [id number]
[2020-03-20] MEDS: ABACAVIR PO SCH (17:10)
[2020-03-20] MEDS: DOLUTEGRAVIR PO SCH (17:10)
[2020-03-20] MEDS: LAMIVUDINE PO SCH (17:10)
[2020-03-20] MEDS: ATORVASTATIN CALCIUM 40 MG TABLET. PO SCH (20:17)
[2020-03-20] MEDS: VANCOMYCIN 125 MG/2.5 ML ORAL SOLUTION. PO SCH (21:38)
[2020-03-20] MEDS: HEPARIN for IV BOLUS 10,000 UNIT/10 ML VIAL. IV PRN (23:05)
[2020-03-21] VITALS (28 sets, daily range): BP systolic 80–119; BP diastolic 52–89
[2020-03-21] MEDS: ACETAMINOPHEN 650 MG/20.3 ML SOLUTION. PEG PRN ×2 (02:19→16:33)
--- NOTE | 2020-03-21 04:29 | RAD ---
XR CHEST 1V 03/21/2020 4:13 AM INDICATION: Hypoxia COMPARISON: 03/20/2020 TECHNIQUE: Portable frontal view of the chest is provided. FINDINGS: The cardiomediastinal silhouette is enlarged, stable. Endotracheal tube, nasogastric tube are in melanie lar position. There is moderate pulmonary vascular congestion, stable. Small left pleural effusion wi th adjacent compressive atelectasis versus infiltrate. No pneumothorax. No suspicious osseous abnormality. IMPRESSION: Aeration of the lungs appears similar to the prior examination. Support lines and tubes are in simila r position. Electronically signed by: Lorene Baez MD (03/21/2020 4:26 AM) BETH
[2020-03-21 04:58] LABS: BASO # 0.1 x10^3/uL (0.0-0.2); BASO % 1 % (0-3); EOS # 0.2 x10^3/uL (0.0-0.7); EOS % 1 % (0-3); HEMOGLOBIN 9.1 g/dL (13.0-17.5); LYMPH # 2.7 x10^3/uL (1.0-4.8); LYMPH % 16 % (24-48); MEAN CORPUSCULAR HEMOGLOBIN 25 pg (25-35); MEAN CORPUSCULAR HGB CONC 31 g/dL (31-37); MEAN CORPUSCULAR VOLUME 80 fL (79-100); MONO # 0.7 x10^3/uL (0.0-1.1); MONO % 4 % (0-9); NEUT # 13.4 x10^3/uL (1.8-7.7); NEUT % 78 % (31-73); PLATELET COUNT 307 x10^3/uL (140-400); RED BLOOD COUNT 3.65 x10^6/uL (4.30-5.70); RED CELL DISTRIBUTION WIDTH 17.4 % (11.5-14.5); WHITE BLOOD COUNT 17.2 x10^3/uL (4.0-11.0)
[2020-03-21 05:10] LABS: PROTHROMBIN TIME PATIENT 16.5 SEC (11.7-14.0)
[2020-03-21 05:14] LABS: ALBUMIN 2.4 g/dL (3.4-5.0); ALBUMIN/GLOBULIN RATIO 0.6 (1.0-1.7); CALCIUM 7.7 mg/dL (8.5-10.1); CREATININE 0.8 mg/dL (0.7-1.3); GFR 122.8; POTASSIUM 3.6 mmol/L (3.5-5.1); TOTAL BILIRUBIN 1.2 mg/dL (0.2-1.0); TOTAL PROTEIN 6.4 g/dL (6.4-8.2)
[2020-03-21] MEDS: HEPARIN for IV BOLUS 10,000 UNIT/10 ML VIAL. IV PRN ×2 (05:19→14:17)
[2020-03-21] MEDS: PIPERACILLIN/TAZOBACTAM 3.375 GM in IV NORMAL SALINE 50ML 50 ML IV SCH ×4 (05:41→23:53)
--- NOTE | 2020-03-21 07:24 | PDOC ---
Infectious Disease Note Subjective: Subjective Patient intubated/sedated T-max 101 No acute issues per discussion with RN Vital Signs: Vital Signs Vital Signs Date Time Temp Pulse Resp B/P (MAP) Pulse Ox O2 Delivery O2 Flow Rate FiO2 03/21/20 07:00 94 24 100/63 (75) 100 Ventilator 03/21/20 06:00 99.9 99.9 Physical Exam: PHYSICAL EXAM GENERAL: Intubated, sedated. HEENT: Conjunctival suffusion. Pupils equal, reactive. ETT OGT present. NECK: Supple. LUNGS: Clear anteriorly. HEART: S1, S2, tachycardia. ABDOMEN: Obese, mildly distended. Bowel sounds present. EXTREMITIES: No edema or cyanosis. DERMATOLOGIC: Warm and dry. No generalized rash. NEUROLOGIC: Unable to assess. Medications: Inpatient Meds: Current Medications Medications (Trade) Dose Ordered Sig/Guy Start Time Stop Time Status Last Admin Dose Admin Acetaminophen (Tylenol) 650 mg PRN Q6HRS PRN 03/20/20 09:00 03/21/20 02:19 650 MG Atorvastatin Calcium (Lipitor) 80 mg QHS 03/20/20 21:00 03/20/20 20:17 80 MG Chlorhexidine Gluconate (Peridex) 15 ml BID 03/20/20 09:00 03/20/20 07:24 DC Clopidogrel Bisulfate (Plavix) 75 mg DAILYWBKFT 03/20/20 12:00 03/20/20 11:51 75 MG Docusate Sodium (Colace Solution) 100 mg BID 03/20/20 09:00 03/20/20 20:17 100 MG Dopamine HCl/ Dextrose 250 ml @ 17.681 mls/ hr CONT PRN 03/20/20 04:30 Famotidine (Pepcid Vial) 20 mg BID 03/20/20 11:00 03/20/20 12:35 DC Fentanyl Citrate (Fentanyl 2ml Vial) 50 mcg PRN Q1HR PRN 03/20/20 04:45 Heparin Sodium (Porcine) (Heparin Sodium) 2,400 unit PRN Q6HRS PRN 03/20/20 04:30 03/21/20 05:19 2,400 UNIT Heparin Sodium/ Dextrose 250 ml @ 0 mls/hr CONT PRN 03/20/20 04:30 03/20/20 05:29 19.8 MLS/HR Info ([facility] Electrolyte Protocol) 1 ea DAILY 03/21/20 09:00 Lorazepam (Ativan Inj) 1 mg PRN Q1HR PRN 03/20/20 04:45 Magnesium Sulfate 50 ml @ 25 mls/hr 1X ONCE 03/20/20 09:45 03/20/20 11:44 DC 03/20/20 10:21 25 MLS/HR Midazolam HCl 100 ml @ 0 mls/hr CONT PRN 03/20/20 04:45 03/20/20 23:47 10 MLS/HR Morphine Sulfate (Morphine Sulfate) 4 mg PRN Q1HR PRN 03/20/20 04:45 Non-Formulary Medication (ABACAVIR/ DOLUTEGRAVIR/ LAMIVUDINE (Triumeq) tablet) 1 ea DAILY 03/20/20 17:00 03/20/20 17:10 1 EA Norepinephrine Bitartrate 8 mg/ Dextrose 258 ml @ 18.247 mls/ hr CONT PRN 03/20/20 04:15 03/20/20 15:43 32.845 MLS/HR Ondansetron HCl (Zofran) 4 mg PRN Q6HRS PRN 03/20/20 10:30 Pantoprazole Sodium (PROTONIX VIAL for IV PUSH) 40 mg DAILYAC 03/20/20 12:30 Piperacillin Sod/ Tazobactam Sod (Zosyn Per Pharmacy) 1 each PRN DAILY PRN 03/20/20 09:30 Piperacillin Sod/ Tazobactam Sod 3.375 gm/Sodium Chloride 50 ml @ 100 mls/hr Q6HRS 03/20/20 10:00 03/21/20 05:41 100 MLS/HR Potassium Bicarbonate (Potassium Effervescent Tablet) 40 meq 1X ONCE 03/20/20 14:00 03/20/20 14:20 DC 03/20/20 14:47 40 MEQ Sodium Chloride (Normal Saline Flush) 3 ml QSHIFT PRN 03/20/20 10:30 Vancomycin HCl (Vancomycin Oral Solution) 125 mg BID 03/20/20 21:30 03/20/20 21:38 125 MG Labs: Lab Laboratory Tests Test 03/20/20 07:40 03/20/20 13:10 03/20/20 22:10 03/21/20 04:53 O2 Saturation 98 % (92-99) Arterial Blood pH 7.39 (7.35-7.45) Arterial Blood pCO2 at Patient Temp 36 mmHg (35-46) Arterial Blood pO2 at Patient Temp 103 mmHg (75-108) Arterial Blood HCO3 21 mmol/L (21-28) Arterial Blood Base Excess -3 mmol/L (-3-3) FiO2 100%+5 White Blood Count 19.5 x10^3/uL (4.0-11.0) 17.2 x10^3/uL (4.0-11.0) Red Blood Count 3.76 x10^6/uL (4.30-5.70) 3.65 x10^6/uL (4.30-5.70) Hemoglobin 9.3 g/dL (13.0-17.5) 9.1 g/dL (13.0-17.5) Hematocrit 30.1 % (39.0-53.0) 29.0 % (39.0-53.0) Mean Corpuscular Volume 80 fL (79-100) 80 fL (79-100) Mean Corpuscular Hemoglobin 25 pg (25-35) 25 pg (25-35) Mean Corpuscular Hemoglobin Concent 31 g/dL (31-37) 31 g/dL (31-37) Red Cell Distribution Width 17.2 % (11.5-14.5) 17.4 % (11.5-14.5) Platelet Count 334 x10^3/uL (140-400) 307 x10^3/uL (140-400) Neutrophils (%) (Auto) 72 % (31-73) 78 % (31-73) Lymphocytes (%) (Auto) 24 % (24-48) 16 % (24-48) Monocytes (%) (Auto) 4 % (0-9) 4 % (0-9) Eosinophils (%) (Auto) 0 % (0-3) 1 % (0-3) Basophils (%) (Auto) 0 % (0-3) 1 % (0-3) Neutrophils # (Auto) 14.0 x10^3/uL (1.8-7.7) 13.4 x10^3/uL (1.8-7.7) Lymphocytes # (Auto) 4.6 x10^3/uL (1.0-4.8) 2.7 x10^3/uL (1.0-4.8) Monocytes # (Auto) 0.7 x10^3/uL (0.0-1.1) 0.7 x10^3/uL (0.0-1.1) Eosinophils # (Auto) 0.0 x10^3/uL (0.0-0.7) 0.2 x10^3/uL (0.0-0.7) Basophils # (Auto) 0.1 x10^3/uL (0.0-0.2) 0.1 x10^3/uL (0.0-0.2) Segmented Neutrophils % 64 % (35-66) Band Neutrophils % 13 % (0-9) Lymphocytes % 22 % (24-48) Monocytes % 1 % (0-10) Platelet Estimate Adequate (ADEQUATE) Hypochromasia Slight Poikilocytosis Slight Anisocytosis Slight Sodium Level 142 mmol/L (136-145) 142 mmol/L (136-145) Potassium Level 3.4 mmol/L (3.5-5.1) 3.6 mmol/L (3.5-5.1) Chloride Level 108 mmol/L (98-107) 108 mmol/L (98-107) Carbon Dioxide Level 23 mmol/L (21-32) 24 mmol/L (21-32) Anion Gap 11 (6-14) 10 (6-14) Blood Urea Nitrogen 9 mg/dL (8-26) 8 mg/dL (8-26) Creatinine 1.1 mg/dL (0.7-1.3) 0.8 mg/dL (0.7-1.3) Estimated GFR (Cockcroft-Gault) 85.1 122.8 BUN/Creatinine Ratio 8 (6-20) 10 (6-20) Glucose Level 150 mg/dL (70-99) 118 mg/dL (70-99) Calcium Level 7.6 mg/dL (8.5-10.1) 7.7 mg/dL (8.5-10.1) Magnesium Level 2.3 mg/dL (1.8-2.4) Total Bilirubin 0.9 mg/dL (0.2-1.0) 1.2 mg/dL (0.2-1.0) Aspartate Amino Transf (AST/SGOT) 36 U/L (15-37) 27 U/L (15-37) Alanine Aminotransferase (ALT/SGPT) 23 U/L (16-63) 22 U/L (16-63) Alkaline Phosphatase 82 U/L (46-116) 80 U/L (46-116) Lactate Dehydrogenase 428 U/L (85-227) Troponin I Quantitative 0.398 ng/mL (0.000-0.055) [id number]-Type Natriuretic Peptide 3415 pg/mL (0-124) Total Protein 6.5 g/dL (6.4-8.2) 6.4 g/dL (6.4-8.2) Albumin 2.5 g/dL (3.4-5.0) 2.4 g/dL (3.4-5.0) Albumin/Globulin Ratio 0.6 (1.0-1.7) 0.6 (1.0-1.7) Triglycerides Level 50 mg/dL (0-150) Cholesterol Level 84 mg/dL (0-200) LDL Cholesterol, Calculated 42 mg/dL (0-100) VLDL Cholesterol, Calculated 10 mg/dL (0-40) Non-HDL Cholesterol Calculated 52 mg/dL (0-129) HDL Cholesterol 32 mg/dL (40-60) Cholesterol/HDL Ratio 2.6 Thyroid Stimulating Hormone (TSH) 0.564 uIU/mL (0.358-3.74) Heparin Anti-Xa Act, Unfractionated < 0.10 IU/mL (0.30-0.70) < 0.10 IU/mL (0.30-0.70) Prothrombin Time 16.5 SEC (11.7-14.0) Prothromb Time International Ratio 1.4 (0.8-1.1) Activated Partial Thromboplast Time 66 SEC (24-38) Objective: Assessment: 1. Fever, likely aspiration. UA negative 2. Witnessed cardiac arrest, status post defibrillation. 3. Leukocytosis and lactic acidosis. 4. Human immunodeficiency virus, CD4 was 403 on 01/16 viral load less than 20 on Triumeq. 5. Acute hypoxic respiratory failure 6. History of ventricular tachycardia, Coronary artery disease, status post PCI. 7. 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 8. History of acute kidney injury, on hemodialysis in the past. 9. 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 10. Substance dependence. UDS positive for cocaine at outside hospital. 11. Hypertension/hyperlipidemia 12. Hypokalemia/hypomagnesemia. 13. H/O Chronic systolic congestive heart failure. 14. History of rectal abscess. 15. History of Necrotizing Pneumonia with Klebsiella at [facility] November 2019 Plan: Plan of Care Continue Zosyn Add Zyvox Continue p.o. vancomycin for prophylaxis with history of recurrent C. difficile Continue Triumeq Follow up labs and cultures. Critically ill. Discussed with nursing. MILLY NICOLE MD Mar 21, 2020 07:24
[2020-03-21] MEDS: ABACAVIR PO SCH (07:38)
[2020-03-21] MEDS: CLOPIDOGREL BISULFATE 75 MG TABLET PO SCH (07:38)
[2020-03-21] MEDS: PANTOPRAZOLE IV PUSH 40 MG VIAL. IVP SCH (07:38)
[2020-03-21] MEDS: DOCUSATE 100 MG/10 ML SOLUTION. NG SCH ×2 (07:38→21:03)
[2020-03-21] MEDS: DOLUTEGRAVIR PO SCH (07:38)
[2020-03-21] MEDS: LAMIVUDINE PO SCH (07:38)
[2020-03-21] MEDS: VANCOMYCIN 125 MG/2.5 ML ORAL SOLUTION. PO SCH ×2 (07:39→21:02)
[2020-03-21] MEDS: HEPARIN 25,000UTS/250ML PREMIX 250 ML IV PRN ×2 (08:13→22:15)
[2020-03-21 08:33] LABS: BASE EXCESS ABG -3 mmol/L (-3-3); CORRECTED PCO2 ABG 36 mmHg; CORRECTED PH ABG 7.39; CORRECTED PO2 ABG 96 mmHg; HCO3 ABG 21 mmol/L (21-28); PCO2 ABG 34 mmHg (35-46); PO2 ABG 88 mmHg (75-108); SAT O2 ABG 97 % (92-99)
[2020-03-21 08:35] LABS: FIO2 ABG 70/VENT
[2020-03-21] MEDS: ELECTROLYTE (ICU) PROTOCOL. MC SCH (08:37)
--- NOTE | 2020-03-21 08:58 | PDOC ---
PROGRESS NOTES Date of Service: DATE: 03/21/20 TIME: 08:57 Chief Complaint Chief Complaint VTE Prophylaxis Ordered VTE Prophylaxis Devices: Yes VTE Pharmacological Prophylaxi: Yes Assessment/Plan Assessment/Plan ASSESSMENT 1. out of hospital arrest , witness cardiac arrest; Defibrillation // AMI ruled out. 2. H/o Vfib probable ischemic in nature, antiarrhythmics discontinued in past due to QTc prolongation of 600. 3. Acute hypoxic respiratory failure requiring vent support 4. CAD s/p PCI/BMS to the LCx 12/11/19. Treated with ASA,Brilinta initially, which was held due to recurrent GIB requiring transfusions.Due to recent PCI/BMS, Plavix was resumed while at [facility]. ASA was d/c'd 5. Chronic systolic CHF 6. ischemic cardiomyopathy LVEF 20-25%. 7. SSS s/p leadless PPM 8. Hypertension; // requiring pressor support 9. Hypokalemia, hypomagnesemia 10. H/o DAIJA requiringHD; renal function improvedand HD catheter removed 11. 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 HIV 13. Substance abuse; UDS + cocaine , ALCOHOL, TOBACCO plan icu bed cardiology consult pulm consult Device interrogation Replace Mg, lytes Secondary prevention measures as able Resume Plavix. No ASA due to recent GIB Monitor LFTs Pressor support; wean as able Hold lisinopril, Toprol with hypotension Echo vent management GI CONSULT COVID 19 SCREEN vent support assist-control mode 50% and PEEP of 5 On heparin drip per cardiology hiv screen Echo to assess LV systolic function if COVID PCR negative 40 MIN CC TIME History of Present Illness History of Present Illness Identification/Chief Complaint Chief Complaint admitted to icu , out of hospial arrest CAD s/p PCI/stent, cardiomyopathy, and prior cardiac arrest, presented secondary to cardiac arrest at home. Was at home with partner, Stevenson, watching television. Patient suddenly started breathing more deeply and began gasping for air. Eyes were wide and glassy. Was unresponsive. Partner was unable to feel pulse so he put him on the floor, called EMS and began chest compressions. Partner reports him drinking 3 malt beverages that evening while watching TV. No known sick contacts. EMS arrived within minutes. ROSC returned following one defibrillation. Although partner declined drug use, Narcan was administered en route due to pinpoint pupils. Limited effect from the Narcan. UDS was + for cocaine. IS COVID 19 PUI hx cardiac arrest on December 19, 2019. Patient was apparently found arrest in his car EMS noted in v-fib. ROSC was achieved following 1 defibrillation and 1 round of epi.//activated as STEMI with LBBB. Emergent cath notable for blockage of left circumflex. //PCI/BMS to the Left circumflex. 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 LVEF noted at 20-25%. Developed DAIJA due to cardiogenic shock. had multiple episodes of bradycardia/significant pauses mostly related to suctioning. then leadlessPPM placement.Treated for Klebsiella PNA as well. course further complicated by GIB requiring tranfusion. 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 Past Medical History Past Medical History PAST MEDICAL HISTORY Past Medical History HIV, HTN, CAD s/p PCI/BMS to the LCx, GIB from arteriovenous malformation, esophagitis, gastritis, DAIJA requiring HD, bradycardia s/p Leadless PPM PAST SURGICAL HISTORY Past Surgical History: Pacemaker, Tonsillectomy, Other (PCI/stent ) FAMILY HISTORY Family History Other (no pertinent history) SOCIAL HISTORY Social History Smoke: <1 pack per day ALCOHOL: none Drugs: None Lives: with Family (with partner ) Cardiovascular: CAD, HTN, Hyperlipidemia Infectious disease: HIV Past Surgical History Past Surgical History: Pacemaker Family History Family History: Hypertension, Other Social History Smoke: <1 pack per day ALCOHOL: occassional Drugs: None, Cocaine Vitals Vitals Vital Signs Date Time Temp Pulse Resp B/P (MAP) Pulse Ox O2 Delivery O2 Flow Rate FiO2 03/21/20 08:15 100 Ventilator 03/21/20 08:00 107 26 119/89 (99) 03/21/20 06:00 99.9 99.9 Physical Exam Physical Exam GENERAL: Intubated, sedated. HEENT: Conjunctival suffusion. Pupils equal, reactive. ETT OGT present. NECK: Supple. LUNGS: Clear anteriorly. HEART: S1, S2, tachycardia. ABDOMEN: Obese, mildly distended. Bowel sounds present. EXTREMITIES: No edema or cyanosis. DERMATOLOGIC: Warm and dry. No generalized rash. NEUROLOGIC: Unable to assess. General: Other (sedated ) Heart: Regular rate Lungs: Clear Abdomen: Soft Extremities: No edema, Normal pulses Skin: No significant lesion Labs LABS Laboratory Tests Test 03/20/20 13:10 03/20/20 22:10 03/21/20 04:53 03/21/20 08:00 White Blood Count 19.5 x10^3/uL (4.0-11.0) 17.2 x10^3/uL (4.0-11.0) Red Blood Count 3.76 x10^6/uL (4.30-5.70) 3.65 x10^6/uL (4.30-5.70) Hemoglobin 9.3 g/dL (13.0-17.5) 9.1 g/dL (13.0-17.5) Hematocrit 30.1 % (39.0-53.0) 29.0 % (39.0-53.0) Mean Corpuscular Volume 80 fL (79-100) 80 fL (79-100) Mean Corpuscular Hemoglobin 25 pg (25-35) 25 pg (25-35) Mean Corpuscular Hemoglobin Concent 31 g/dL (31-37) 31 g/dL (31-37) Red Cell Distribution Width 17.2 % (11.5-14.5) 17.4 % (11.5-14.5) Platelet Count 334 x10^3/uL (140-400) 307 x10^3/uL (140-400) Neutrophils (%) (Auto) 72 % (31-73) 78 % (31-73) Lymphocytes (%) (Auto) 24 % (24-48) 16 % (24-48) Monocytes (%) (Auto) 4 % (0-9) 4 % (0-9) Eosinophils (%) (Auto) 0 % (0-3) 1 % (0-3) Basophils (%) (Auto) 0 % (0-3) 1 % (0-3) Neutrophils # (Auto) 14.0 x10^3/uL (1.8-7.7) 13.4 x10^3/uL (1.8-7.7) Lymphocytes # (Auto) 4.6 x10^3/uL (1.0-4.8) 2.7 x10^3/uL (1.0-4.8) Monocytes # (Auto) 0.7 x10^3/uL (0.0-1.1) 0.7 x10^3/uL (0.0-1.1) Eosinophils # (Auto) 0.0 x10^3/uL (0.0-0.7) 0.2 x10^3/uL (0.0-0.7) Basophils # (Auto) 0.1 x10^3/uL (0.0-0.2) 0.1 x10^3/uL (0.0-0.2) Segmented Neutrophils % 64 % (35-66) Band Neutrophils % 13 % (0-9) Lymphocytes % 22 % (24-48) Monocytes % 1 % (0-10) Platelet Estimate Adequate (ADEQUATE) Hypochromasia Slight Poikilocytosis Slight Anisocytosis Slight Sodium Level 142 mmol/L (136-145) 142 mmol/L (136-145) Potassium Level 3.4 mmol/L (3.5-5.1) 3.6 mmol/L (3.5-5.1) Chloride Level 108 mmol/L (98-107) 108 mmol/L (98-107) Carbon Dioxide Level 23 mmol/L (21-32) 24 mmol/L (21-32) Anion Gap 11 (6-14) 10 (6-14) Blood Urea Nitrogen 9 mg/dL (8-26) 8 mg/dL (8-26) Creatinine 1.1 mg/dL (0.7-1.3) 0.8 mg/dL (0.7-1.3) Estimated GFR (Cockcroft-Gault) 85.1 122.8 BUN/Creatinine Ratio 8 (6-20) 10 (6-20) Glucose Level 150 mg/dL (70-99) 118 mg/dL (70-99) Calcium Level 7.6 mg/dL (8.5-10.1) 7.7 mg/dL (8.5-10.1) Magnesium Level 2.3 mg/dL (1.8-2.4) Total Bilirubin 0.9 mg/dL (0.2-1.0) 1.2 mg/dL (0.2-1.0) Aspartate Amino Transf (AST/SGOT) 36 U/L (15-37) 27 U/L (15-37) Alanine Aminotransferase (ALT/SGPT) 23 U/L (16-63) 22 U/L (16-63) Alkaline Phosphatase 82 U/L (46-116) 80 U/L (46-116) Lactate Dehydrogenase 428 U/L (85-227) Troponin I Quantitative 0.398 ng/mL (0.000-0.055) AX-Nft-A-Type Natriuretic Peptide 3415 pg/mL (0-124) Total Protein 6.5 g/dL (6.4-8.2) 6.4 g/dL (6.4-8.2) Albumin 2.5 g/dL (3.4-5.0) 2.4 g/dL (3.4-5.0) Albumin/Globulin Ratio 0.6 (1.0-1.7) 0.6 (1.0-1.7) Triglycerides Level 50 mg/dL (0-150) Cholesterol Level 84 mg/dL (0-200) LDL Cholesterol, Calculated 42 mg/dL (0-100) VLDL Cholesterol, Calculated 10 mg/dL (0-40) Non-HDL Cholesterol Calculated 52 mg/dL (0-129) HDL Cholesterol 32 mg/dL (40-60) Cholesterol/HDL Ratio 2.6 Thyroid Stimulating Hormone (TSH) 0.564 uIU/mL (0.358-3.74) Heparin Anti-Xa Act, Unfractionated < 0.10 IU/mL (0.30-0.70) < 0.10 IU/mL (0.30-0.70) Prothrombin Time 16.5 SEC (11.7-14.0) Prothromb Time International Ratio 1.4 (0.8-1.1) Activated Partial Thromboplast Time 66 SEC (24-38) O2 Saturation 97 % (92-99) Arterial Blood pH 7.41 (7.35-7.45) Arterial Blood pH (Temp corrected) 7.39 Arterial Blood pCO2 at Patient Temp 34 mmHg (35-46) Arterial Blood pCO2 (Temp correct) 36 mmHg Arterial Blood pO2 at Patient Temp 88 mmHg (75-108) Arterial Blood pO2 (Temp corrected) 96 mmHg Arterial Blood HCO3 21 mmol/L (21-28) Arterial Blood Base Excess -3 mmol/L (-3-3) FiO2 70/vent Comment Review of Relevant I have reviewed the following items joel (where applicable) has been applied. Labs Laboratory Tests Test 03/20/20 07:40 03/20/20 13:10 03/20/20 22:10 03/21/20 04:53 O2 Saturation 98 % (92-99) Arterial Blood pH 7.39 (7.35-7.45) Arterial Blood pCO2 at Patient Temp 36 mmHg (35-46) Arterial Blood pO2 at Patient Temp 103 mmHg (75-108) Arterial Blood HCO3 21 mmol/L (21-28) Arterial Blood Base Excess -3 mmol/L (-3-3) FiO2 100%+5 White Blood Count 19.5 x10^3/uL (4.0-11.0) 17.2 x10^3/uL (4.0-11.0) Red Blood Count 3.76 x10^6/uL (4.30-5.70) 3.65 x10^6/uL (4.30-5.70) Hemoglobin 9.3 g/dL (13.0-17.5) 9.1 g/dL (13.0-17.5) Hematocrit 30.1 % (39.0-53.0) 29.0 % (39.0-53.0) Mean Corpuscular Volume 80 fL (79-100) 80 fL (79-100) Mean Corpuscular Hemoglobin 25 pg (25-35) 25 pg (25-35) Mean Corpuscular Hemoglobin Concent 31 g/dL (31-37) 31 g/dL (31-37) Red Cell Distribution Width 17.2 % (11.5-14.5) 17.4 % (11.5-14.5) Platelet Count 334 x10^3/uL (140-400) 307 x10^3/uL (140-400) Neutrophils (%) (Auto) 72 % (31-73) 78 % (31-73) Lymphocytes (%) (Auto) 24 % (24-48) 16 % (24-48) Monocytes (%) (Auto) 4 % (0-9) 4 % (0-9) Eosinophils (%) (Auto) 0 % (0-3) 1 % (0-3) Basophils (%) (Auto) 0 % (0-3) 1 % (0-3) Neutrophils # (Auto) 14.0 x10^3/uL (1.8-7.7) 13.4 x10^3/uL (1.8-7.7) Lymphocytes # (Auto) 4.6 x10^3/uL (1.0-4.8) 2.7 x10^3/uL (1.0-4.8) Monocytes # (Auto) 0.7 x10^3/uL (0.0-1.1) 0.7 x10^3/uL (0.0-1.1) Eosinophils # (Auto) 0.0 x10^3/uL (0.0-0.7) 0.2 x10^3/uL (0.0-0.7) Basophils # (Auto) 0.1 x10^3/uL (0.0-0.2) 0.1 x10^3/uL (0.0-0.2) Segmented Neutrophils % 64 % (35-66) Band Neutrophils % 13 % (0-9) Lymphocytes % 22 % (24-48) Monocytes % 1 % (0-10) Platelet Estimate Adequate (ADEQUATE) Hypochromasia Slight Poikilocytosis Slight Anisocytosis Slight Sodium Level 142 mmol/L (136-145) 142 mmol/L (136-145) Potassium Level 3.4 mmol/L (3.5-5.1) 3.6 mmol/L (3.5-5.1) Chloride Level 108 mmol/L (98-107) 108 mmol/L (98-107) Carbon Dioxide Level 23 mmol/L (21-32) 24 mmol/L (21-32) Anion Gap 11 (6-14) 10 (6-14) Blood Urea Nitrogen 9 mg/dL (8-26) 8 mg/dL (8-26) Creatinine 1.1 mg/dL (0.7-1.3) 0.8 mg/dL (0.7-1.3) Estimated GFR (Cockcroft-Gault) 85.1 122.8 BUN/Creatinine Ratio 8 (6-20) 10 (6-20) Glucose Level 150 mg/dL (70-99) 118 mg/dL (70-99) Calcium Level 7.6 mg/dL (8.5-10.1) 7.7 mg/dL (8.5-10.1) Magnesium Level 2.3 mg/dL (1.8-2.4) Total Bilirubin 0.9 mg/dL (0.2-1.0) 1.2 mg/dL (0.2-1.0) Aspartate Amino Transf (AST/SGOT) 36 U/L (15-37) 27 U/L (15-37) Alanine Aminotransferase (ALT/SGPT) 23 U/L (16-63) 22 U/L (16-63) Alkaline Phosphatase 82 U/L (46-116) 80 U/L (46-116) Lactate Dehydrogenase 428 U/L (85-227) Troponin I Quantitative 0.398 ng/mL (0.000-0.055) LE-Bbu-E-Type Natriuretic Peptide 3415 pg/mL (0-124) Total Protein 6.5 g/dL (6.4-8.2) 6.4 g/dL (6.4-8.2) Albumin 2.5 g/dL (3.4-5.0) 2.4 g/dL (3.4-5.0) Albumin/Globulin Ratio 0.6 (1.0-1.7) 0.6 (1.0-1.7) Triglycerides Level 50 mg/dL (0-150) Cholesterol Level 84 mg/dL (0-200) LDL Cholesterol, Calculated 42 mg/dL (0-100) VLDL Cholesterol, Calculated 10 mg/dL (0-40) Non-HDL Cholesterol Calculated 52 mg/dL (0-129) HDL Cholesterol 32 mg/dL (40-60) Cholesterol/HDL Ratio 2.6 Thyroid Stimulating Hormone (TSH) 0.564 uIU/mL (0.358-3.74) Heparin Anti-Xa Act, Unfractionated < 0.10 IU/mL (0.30-0.70) < 0.10 IU/mL (0.30-0.70) Prothrombin Time 16.5 SEC (11.7-14.0) Prothromb Time International Ratio 1.4 (0.8-1.1) Activated Partial Thromboplast Time 66 SEC (24-38) Test 03/21/20 08:00 O2 Saturation 97 % (92-99) Arterial Blood pH 7.41 (7.35-7.45) Arterial Blood pH (Temp corrected) 7.39 Arterial Blood pCO2 at Patient Temp 34 mmHg (35-46) Arterial Blood pCO2 (Temp correct) 36 mmHg Arterial Blood pO2 at Patient Temp 88 mmHg (75-108) Arterial Blood pO2 (Temp corrected) 96 mmHg Arterial Blood HCO3 21 mmol/L (21-28) Arterial Blood Base Excess -3 mmol/L (-3-3) FiO2 70/vent Laboratory Tests Test 03/20/20 13:10 03/20/20 22:10 03/21/20 04:53 03/21/20 08:00 White Blood Count 19.5 x10^3/uL (4.0-11.0) 17.2 x10^3/uL (4.0-11.0) Red Blood Count 3.76 x10^6/uL (4.30-5.70) 3.65 x10^6/uL (4.30-5.70) Hemoglobin 9.3 g/dL (13.0-17.5) 9.1 g/dL (13.0-17.5) Hematocrit 30.1 % (39.0-53.0) 29.0 % (39.0-53.0) Mean Corpuscular Volume 80 fL (79-100) 80 fL (79-100) Mean Corpuscular Hemoglobin 25 pg (25-35) 25 pg (25-35) Mean Corpuscular Hemoglobin Concent 31 g/dL (31-37) 31 g/dL (31-37) Red Cell Distribution Width 17.2 % (11.5-14.5) 17.4 % (11.5-14.5) Platelet Count 334 x10^3/uL (140-400) 307 x10^3/uL (140-400) Neutrophils (%) (Auto) 72 % (31-73) 78 % (31-73) Lymphocytes (%) (Auto) 24 % (24-48) 16 % (24-48) Monocytes (%) (Auto) 4 % (0-9) 4 % (0-9) Eosinophils (%) (Auto) 0 % (0-3) 1 % (0-3) Basophils (%) (Auto) 0 % (0-3) 1 % (0-3) Neutrophils # (Auto) 14.0 x10^3/uL (1.8-7.7) 13.4 x10^3/uL (1.8-7.7) Lymphocytes # (Auto) 4.6 x10^3/uL (1.0-4.8) 2.7 x10^3/uL (1.0-4.8) Monocytes # (Auto) 0.7 x10^3/uL (0.0-1.1) 0.7 x10^3/uL (0.0-1.1) Eosinophils # (Auto) 0.0 x10^3/uL (0.0-0.7) 0.2 x10^3/uL (0.0-0.7) Basophils # (Auto) 0.1 x10^3/uL (0.0-0.2) 0.1 x10^3/uL (0.0-0.2) Segmented Neutrophils % 64 % (35-66) Band Neutrophils % 13 % (0-9) Lymphocytes % 22 % (24-48) Monocytes % 1 % (0-10) Platelet Estimate Adequate (ADEQUATE) Hypochromasia Slight Poikilocytosis Slight Anisocytosis Slight Sodium Level 142 mmol/L (136-145) 142 mmol/L (136-145) Potassium Level 3.4 mmol/L (3.5-5.1) 3.6 mmol/L (3.5-5.1) Chloride Level 108 mmol/L (98-107) 108 mmol/L (98-107) Carbon Dioxide Level 23 mmol/L (21-32) 24 mmol/L (21-32) Anion Gap 11 (6-14) 10 (6-14) Blood Urea Nitrogen 9 mg/dL (8-26) 8 mg/dL (8-26) Creatinine 1.1 mg/dL (0.7-1.3) 0.8 mg/dL (0.7-1.3) Estimated GFR (Cockcroft-Gault) 85.1 122.8 BUN/Creatinine Ratio 8 (6-20) 10 (6-20) Glucose Level 150 mg/dL (70-99) 118 mg/dL (70-99) Calcium Level 7.6 mg/dL (8.5-10.1) 7.7 mg/dL (8.5-10.1) Magnesium Level 2.3 mg/dL (1.8-2.4) Total Bilirubin 0.9 mg/dL (0.2-1.0) 1.2 mg/dL (0.2-1.0) Aspartate Amino Transf (AST/SGOT) 36 U/L (15-37) 27 U/L (15-37) Alanine Aminotransferase (ALT/SGPT) 23 U/L (16-63) 22 U/L (16-63) Alkaline Phosphatase 82 U/L (46-116) 80 U/L (46-116) Lactate Dehydrogenase 428 U/L (85-227) Troponin I Quantitative 0.398 ng/mL (0.000-0.055) AQ-Bzr-N-Type Natriuretic Peptide 3415 pg/mL (0-124) Total Protein 6.5 g/dL (6.4-8.2) 6.4 g/dL (6.4-8.2) Albumin 2.5 g/dL (3.4-5.0) 2.4 g/dL (3.4-5.0) Albumin/Globulin Ratio 0.6 (1.0-1.7) 0.6 (1.0-1.7) Triglycerides Level 50 mg/dL (0-150) Cholesterol Level 84 mg/dL (0-200) LDL Cholesterol, Calculated 42 mg/dL (0-100) VLDL Cholesterol, Calculated 10 mg/dL (0-40) Non-HDL Cholesterol Calculated 52 mg/dL (0-129) HDL Cholesterol 32 mg/dL (40-60) Cholesterol/HDL Ratio 2.6 Thyroid Stimulating Hormone (TSH) 0.564 uIU/mL (0.358-3.74) Heparin Anti-Xa Act, Unfractionated < 0.10 IU/mL (0.30-0.70) < 0.10 IU/mL (0.30-0.70) Prothrombin Time 16.5 SEC (11.7-14.0) Prothromb Time International Ratio 1.4 (0.8-1.1) Activated Partial Thromboplast Time 66 SEC (24-38) O2 Saturation 97 % (92-99) Arterial Blood pH 7.41 (7.35-7.45) Arterial Blood pH (Temp corrected) 7.39 Arterial Blood pCO2 at Patient Temp 34 mmHg (35-46) Arterial Blood pCO2 (Temp correct) 36 mmHg Arterial Blood pO2 at Patient Temp 88 mmHg (75-108) Arterial Blood pO2 (Temp corrected) 96 mmHg Arterial Blood HCO3 21 mmol/L (21-28) Arterial Blood Base Excess -3 mmol/L (-3-3) FiO2 70/vent Medications Current Medications Norepinephrine Bitartrate 8 mg/ Dextrose 258 ml @ 18.247 mls/ hr CONT PRN IV PER PROTOCOL Last administered on 03/20/20at 15:43; Start 03/20/20 at 04:15 Dopamine HCl/ Dextrose 250 ml @ 17.681 mls/ hr CONT PRN IV SEE I/O RECORD; Start 03/20/20 at 04:30 Heparin Sodium/ Dextrose 250 ml @ 0 mls/hr CONT PRN IV PER PROTOCOL Last administered on 03/21/20at 08:13; Start 03/20/20 at 04:30 Heparin Sodium (Porcine) (Heparin Sodium) 2,400 unit PRN Q6HRS PRN IV FOR UFH LEVEL LESS THAN 0.2 Last administered on 03/21/20at 05:19; Start 03/20/20 at 04:30 Fentanyl Citrate 30 ml @ 0 mls/hr CONT PRN IV SEE PROTOCOL Last administered on 03/20/20at 22:24; Start 03/20/20 at 04:45 Lorazepam (Ativan Inj) 1 mg PRN Q1HR PRN IV SEE COMMENTS; Start 03/20/20 at 04:45 Fentanyl Citrate (Fentanyl 2ml Vial) 25 mcg PRN Q1HR PRN IV SEE COMMENTS; Start 03/20/20 at 04:45 Fentanyl Citrate (Fentanyl 2ml Vial) 50 mcg PRN Q1HR PRN IV SEE COMMENTS; Start 03/20/20 at 04:45 Chlorhexidine Gluconate (Peridex) 15 ml BID MM ; Start 03/20/20 at 09:00; Stop 03/20/20 at 07:24; Status DC Famotidine (Pepcid Vial) 20 mg BID IVP Last administered on 03/20/20at 08:07; Start 03/20/20 at 09:00; Stop 03/20/20 at 12:52; Status DC Morphine Sulfate (Morphine Sulfate) 2 mg PRN Q1HR PRN IV SEE COMMENTS.; Start 03/20/20 at 04:45 Morphine Sulfate (Morphine Sulfate) 4 mg PRN Q1HR PRN IV SEE COMMENTS.; Start 03/20/20 at 04:45 Midazolam HCl 100 ml @ 0 mls/hr CONT PRN IV SEE PROTOCOL Last administered on 03/20/20at 23:47; Start 03/20/20 at 04:45 Docusate Sodium (Colace Solution) 100 mg BID NG Last administered on 03/21/20at 07:38; Start 03/20/20 at 09:00 Sodium Chloride 1,000 ml @ 75 mls/hr [id number] IV Last administered on 03/20/20at 19:32; Start 03/20/20 at 06:30 Acetaminophen (Tylenol) 650 mg PRN Q6HRS PRN PEG MILD PAIN / TEMP > 100.3'F Last administered on 03/21/20at 02:19; Start 03/20/20 at 09:00 Piperacillin Sod/ Tazobactam Sod (Zosyn Per Pharmacy) 1 each PRN DAILY PRN MC SEE COMMENTS; Start 03/20/20 at 09:30 Piperacillin Sod/ Tazobactam Sod 3.375 gm/Sodium Chloride 50 ml @ 100 mls/hr Q6HRS IV Last administered on 03/21/20at 05:41; Start 03/20/20 at 10:00 Magnesium Sulfate 50 ml @ 25 mls/hr 1X ONCE IV Last administered on 03/20/20at 10:21; Start 03/20/20 at 09:45; Stop 03/20/20 at 11:44; Status DC Clopidogrel Bisulfate (Plavix) 75 mg DAILYWBKFT PO Last administered on at 07:38; Start 03/20/20 at 12:00 Atorvastatin Calcium (Lipitor) 80 mg QHS PO Last administered on 03/20/20at 20:17; Start 03/20/20 at 21:00 Ondansetron HCl (Zofran) 4 mg PRN Q6HRS PRN IVP NAUSEA/VOMITING; Start 03/20/20 at 10:30 Famotidine (Pepcid Vial) 20 mg BID IVP ; Start 03/20/20 at 11:00; Stop 03/20/20 at 12:35; Status DC Info (Icu Electrolyte Protocol) 1 ea DAILY MC ; Start 03/21/20 at 09:00 Sodium Chloride (Normal Saline Flush) 3 ml QSHIFT PRN IV AFTER MEDS AND BLOOD DRAWS; Start 03/20/20 at 10:30 Pantoprazole Sodium (PROTONIX VIAL for IV PUSH) 40 mg DAILYAC IVP Last administered on 03/21/20at 07:38; Start 03/20/20 at 12:30 Potassium Bicarbonate (Potassium Effervescent Tablet) 40 meq 1X ONCE PEG Last administered on 03/20/20at 14:47; Start 03/20/20 at 14:00; Stop 03/20/20 at 14:20; Status DC Non-Formulary Medication (ABACAVIR/ DOLUTEGRAVIR/ LAMIVUDINE (Triumeq) tablet) 1 ea DAILY PO Last administered on 03/21/20at 07:38; Start 03/20/20 at 17:00 Vancomycin HCl (Vancomycin Oral Solution) 125 mg BID PO Last administered on 03/21/20at 07:39; Start 03/20/20 at 21:30 Linezolid/Dextrose 300 ml @ 300 mls/hr Q12HR IV Last administered on 03/21/20at 08:21; Start 03/21/20 at 09:00 Active Scripts Active Furosemide 40 Mg Tablet 40 Mg PO DAILY 90 Days Tramadol Hcl 50 Mg Tablet 50 Mg PO PRN Q6HRS PRN 6 Days Metoprolol Succinate ( Xl ) (Metoprolol Succinate) 25 Mg Tab.er.24h 12.5 Mg PO DAILY 90 Days Clopidogrel (Clopidogrel Bisulfate) 75 Mg Tablet 75 Mg PO DAILYWBKFT 90 Days Lisinopril 10 Mg Tablet 1 Tab PO DAILY 90 Days Atorvastatin Calcium 80 Mg Tablet 80 Mg PO QHS 90 Days Reported Klor-Con M20 (Potassium Chloride) 20 Meq Tab.er.prt 20 Meq PO TID Pantoprazole Sodium (Pantoprazole Sodium) 40 Mg Tablet.dr 40 Mg PO BID Duoneb 0.5-3(2.5) Mg/3 Ml (Albuterol/Ipratropium) 3 Ml Ampul.neb 3 Ml NEB PRN Q6HRS PRN Acetaminophen 325 Mg Tablet 1 Tab PO PRN Q6HRS PRN 24 Days Triumeq Tablet (Abacavir/Dolutegravir/Lamivudi) 1 Each Tablet 1 Tab PO DAILY 30 Days Gabapentin (Gabapentin) 300 Mg Capsule 100 Mg PO TID Children's Aspirin (Aspirin) 81 Mg Tab.chew 1 Tab PO DAILY 30 Days Vitals/I & O Vital Sign - Last 24 Hours 03/20/20 03/20/20 03/20/20 03/20/20 09:00 10:00 11:00 11:15 Pulse 100 99 87 Resp 24 B/P (MAP) 90/54 (66) 85/54 (64) 72/47 (55) 69/48 (55) Pulse Ox 100 100 100 O2 Delivery Ventilator Ventilator Ventilator 03/20/20 03/20/20 03/20/20 03/20/20 11:30 11:33 11:40 11:41 B/P (MAP) 71/50 (57) Pulse Ox 100 100 O2 Delivery Ventilator Ventilator Mechanical Ventilator 03/20/20 03/20/20 03/20/20 03/20/20 12:00 13:00 14:00 15:00 Temp 102.1 102.1 Pulse 92 90 92 84 Resp 24 B/P (MAP) 91/53 (66) 87/55 (66) 103/56 (72) 85/57 (66) Pulse Ox 100 100 100 100 O2 Delivery Ventilator Ventilator Ventilator Ventilator 03/20/20 03/20/20 03/20/20 03/20/20 15:33 15:45 16:00 17:00 Temp 102.5 102.5 Pulse 100 84 Resp 24 B/P (MAP) 122/70 (87) 94/63 (73) Pulse Ox 100 100 100 O2 Delivery Mechanical Ventilator Ventilator Ventilator Ventilator 03/20/20 03/20/20 03/20/20 03/20/20 18:00 19:00 20:00 20:00 Temp 100.0 100.0 Pulse 88 79 84 Resp 24 22 22 B/P (MAP) 96/61 (73) 105/69 (81) 108/66 (80) Pulse Ox 100 100 100 O2 Delivery Ventilator Ventilator Ventilator Mechanical Ventilator 03/20/20 03/20/20 03/20/20 03/20/20 20:20 20:45 21:00 21:15 Pulse 92 Resp 22 B/P (MAP) 108/66 (80) 95/61 (72) 104/64 (77) Pulse Ox 100 100 O2 Delivery Ventilator Ventilator 03/20/20 03/20/20 03/20/20 03/20/20 22:00 22:24 22:45 23:00 Pulse 88 90 Resp 24 22 B/P (MAP) 106/74 (85) 103/64 (77) 93/64 (74) Pulse Ox 100 100 O2 Delivery Ventilator Ventilator Ventilator 03/20/20 03/20/20 03/21/20 03/21/20 23:13 23:15 00:00 00:00 Temp 100.9 100.9 Pulse 90 Resp 26 B/P (MAP) 119/68 (85) 103/72 (82) Pulse Ox 100 O2 Delivery Ventilator Ventilator Mechanical Ventilator 03/21/20 03/21/20 03/21/20 03/21/20 00:02 00:15 01:00 02:00 Temp 102.7 102.7 Pulse 95 96 Resp 24 24 B/P (MAP) 113/65 (81) 99/59 (72) 107/59 (75) Pulse Ox 100 100 100 O2 Delivery Ventilator Ventilator Ventilator 03/21/20 03/21/20 03/21/20 03/21/20 03:00 03:05 03:30 03:45 Pulse 108 Resp 24 B/P (MAP) 112/59 (76) 108/66 (80) Pulse Ox 98 100 O2 Delivery Ventilator Ventilator Mechanical Ventilator 03/21/20 03/21/20 03/21/20 03/21/20 04:00 05:00 06:00 07:00 Temp 101.2 99.9 101.2 99.9 Pulse 104 92 107 94 Resp 24 20 22 24 B/P (MAP) 100/65 (77) 103/64 (77) 108/68 (81) 100/63 (75) Pulse Ox 99 99 97 100 O2 Delivery Ventilator Ventilator Ventilator Ventilator 03/21/20 03/21/20 03/21/20 08:00 08:00 08:15 Pulse 107 Resp 26 B/P (MAP) 119/89 (99) Pulse Ox 100 100 O2 Delivery Mechanical Ventilator Ventilator Ventilator Intake and Output 03/20/20 03/20/20 03/21/20 15:00 23:00 07:00 Intake Total 100 ml 1647 ml 1393 ml Output Total 600 ml 825 ml 900 ml Balance -500 ml 822 ml 493 ml Justicifation of Admission Dx: Justifications for Admission: Justification of Admission Dx: Yes GLADYS FAUSTIN MD Mar 21, 2020 08:57
[2020-03-21] MEDS: IV NORMAL SALINE 1000ML BAG 1,000 ML IV SCH (09:10)
[2020-03-21] MEDS: NOREPINEPHRINE VIAL 8 MG in IV DEXTROSE 5% 250 ML IV PRN (09:19)
[2020-03-21] MEDS: MIDAZOLAM 100mg/100ml NS BAG 100 ML IV PRN ×2 (09:21→20:16)
--- NOTE | 2020-03-21 09:22 | PDOC ---
PULMONARY PROGRESS NOTES DATE: 03/21/20 TIME: 09:21 Subjective Patient remains on vent support assist-control mode 50% and a PEEP of 5 On a heparin drip per cardiology Continues to require Levophed Low-grade fever overnight No other concerns from nursing at this time Vitals Vital Signs Date Time Temp Pulse Resp B/P (MAP) Pulse Ox O2 Delivery O2 Flow Rate FiO2 03/21/20 09:00 109 24 112/70 (84) 98 Ventilator 03/21/20 08:00 100.9 100.9 Comments Intubated/sedated Lungs: Clear Extremities: No Edema Labs Laboratory Tests Test 03/20/20 07:40 03/20/20 13:10 03/20/20 22:10 03/21/20 04:53 O2 Saturation 98 % (92-99) Arterial Blood pH 7.39 (7.35-7.45) Arterial Blood pCO2 at Patient Temp 36 mmHg (35-46) Arterial Blood pO2 at Patient Temp 103 mmHg (75-108) Arterial Blood HCO3 21 mmol/L (21-28) Arterial Blood Base Excess -3 mmol/L (-3-3) FiO2 100%+5 White Blood Count 19.5 x10^3/uL (4.0-11.0) 17.2 x10^3/uL (4.0-11.0) Red Blood Count 3.76 x10^6/uL (4.30-5.70) 3.65 x10^6/uL (4.30-5.70) Hemoglobin 9.3 g/dL (13.0-17.5) 9.1 g/dL (13.0-17.5) Hematocrit 30.1 % (39.0-53.0) 29.0 % (39.0-53.0) Mean Corpuscular Volume 80 fL (79-100) 80 fL (79-100) Mean Corpuscular Hemoglobin 25 pg (25-35) 25 pg (25-35) Mean Corpuscular Hemoglobin Concent 31 g/dL (31-37) 31 g/dL (31-37) Red Cell Distribution Width 17.2 % (11.5-14.5) 17.4 % (11.5-14.5) Platelet Count 334 x10^3/uL (140-400) 307 x10^3/uL (140-400) Neutrophils (%) (Auto) 72 % (31-73) 78 % (31-73) Lymphocytes (%) (Auto) 24 % (24-48) 16 % (24-48) Monocytes (%) (Auto) 4 % (0-9) 4 % (0-9) Eosinophils (%) (Auto) 0 % (0-3) 1 % (0-3) Basophils (%) (Auto) 0 % (0-3) 1 % (0-3) Neutrophils # (Auto) 14.0 x10^3/uL (1.8-7.7) 13.4 x10^3/uL (1.8-7.7) Lymphocytes # (Auto) 4.6 x10^3/uL (1.0-4.8) 2.7 x10^3/uL (1.0-4.8) Monocytes # (Auto) 0.7 x10^3/uL (0.0-1.1) 0.7 x10^3/uL (0.0-1.1) Eosinophils # (Auto) 0.0 x10^3/uL (0.0-0.7) 0.2 x10^3/uL (0.0-0.7) Basophils # (Auto) 0.1 x10^3/uL (0.0-0.2) 0.1 x10^3/uL (0.0-0.2) Segmented Neutrophils % 64 % (35-66) Band Neutrophils % 13 % (0-9) Lymphocytes % 22 % (24-48) Monocytes % 1 % (0-10) Platelet Estimate Adequate (ADEQUATE) Hypochromasia Slight Poikilocytosis Slight Anisocytosis Slight Sodium Level 142 mmol/L (136-145) 142 mmol/L (136-145) Potassium Level 3.4 mmol/L (3.5-5.1) 3.6 mmol/L (3.5-5.1) Chloride Level 108 mmol/L (98-107) 108 mmol/L (98-107) Carbon Dioxide Level 23 mmol/L (21-32) 24 mmol/L (21-32) Anion Gap 11 (6-14) 10 (6-14) Blood Urea Nitrogen 9 mg/dL (8-26) 8 mg/dL (8-26) Creatinine 1.1 mg/dL (0.7-1.3) 0.8 mg/dL (0.7-1.3) Estimated GFR (Cockcroft-Gault) 85.1 122.8 BUN/Creatinine Ratio 8 (6-20) 10 (6-20) Glucose Level 150 mg/dL (70-99) 118 mg/dL (70-99) Calcium Level 7.6 mg/dL (8.5-10.1) 7.7 mg/dL (8.5-10.1) Magnesium Level 2.3 mg/dL (1.8-2.4) Total Bilirubin 0.9 mg/dL (0.2-1.0) 1.2 mg/dL (0.2-1.0) Aspartate Amino Transf (AST/SGOT) 36 U/L (15-37) 27 U/L (15-37) Alanine Aminotransferase (ALT/SGPT) 23 U/L (16-63) 22 U/L (16-63) Alkaline Phosphatase 82 U/L (46-116) 80 U/L (46-116) Lactate Dehydrogenase 428 U/L (85-227) Troponin I Quantitative 0.398 ng/mL (0.000-0.055) UX-Usn-L-Type Natriuretic Peptide 3415 pg/mL (0-124) Total Protein 6.5 g/dL (6.4-8.2) 6.4 g/dL (6.4-8.2) Albumin 2.5 g/dL (3.4-5.0) 2.4 g/dL (3.4-5.0) Albumin/Globulin Ratio 0.6 (1.0-1.7) 0.6 (1.0-1.7) Triglycerides Level 50 mg/dL (0-150) Cholesterol Level 84 mg/dL (0-200) LDL Cholesterol, Calculated 42 mg/dL (0-100) VLDL Cholesterol, Calculated 10 mg/dL (0-40) Non-HDL Cholesterol Calculated 52 mg/dL (0-129) HDL Cholesterol 32 mg/dL (40-60) Cholesterol/HDL Ratio 2.6 Thyroid Stimulating Hormone (TSH) 0.564 uIU/mL (0.358-3.74) Heparin Anti-Xa Act, Unfractionated < 0.10 IU/mL (0.30-0.70) < 0.10 IU/mL (0.30-0.70) Prothrombin Time 16.5 SEC (11.7-14.0) Prothromb Time International Ratio 1.4 (0.8-1.1) Activated Partial Thromboplast Time 66 SEC (24-38) Test 03/21/20 08:00 O2 Saturation 97 % (92-99) Arterial Blood pH 7.41 (7.35-7.45) Arterial Blood pH (Temp corrected) 7.39 Arterial Blood pCO2 at Patient Temp 34 mmHg (35-46) Arterial Blood pCO2 (Temp correct) 36 mmHg Arterial Blood pO2 at Patient Temp 88 mmHg (75-108) Arterial Blood pO2 (Temp corrected) 96 mmHg Arterial Blood HCO3 21 mmol/L (21-28) Arterial Blood Base Excess -3 mmol/L (-3-3) FiO2 70/vent Laboratory Tests Test 03/20/20 13:10 03/20/20 22:10 03/21/20 04:53 03/21/20 08:00 White Blood Count 19.5 x10^3/uL (4.0-11.0) 17.2 x10^3/uL (4.0-11.0) Red Blood Count 3.76 x10^6/uL (4.30-5.70) 3.65 x10^6/uL (4.30-5.70) Hemoglobin 9.3 g/dL (13.0-17.5) 9.1 g/dL (13.0-17.5) Hematocrit 30.1 % (39.0-53.0) 29.0 % (39.0-53.0) Mean Corpuscular Volume 80 fL (79-100) 80 fL (79-100) Mean Corpuscular Hemoglobin 25 pg (25-35) 25 pg (25-35) Mean Corpuscular Hemoglobin Concent 31 g/dL (31-37) 31 g/dL (31-37) Red Cell Distribution Width 17.2 % (11.5-14.5) 17.4 % (11.5-14.5) Platelet Count 334 x10^3/uL (140-400) 307 x10^3/uL (140-400) Neutrophils (%) (Auto) 72 % (31-73) 78 % (31-73) Lymphocytes (%) (Auto) 24 % (24-48) 16 % (24-48) Monocytes (%) (Auto) 4 % (0-9) 4 % (0-9) Eosinophils (%) (Auto) 0 % (0-3) 1 % (0-3) Basophils (%) (Auto) 0 % (0-3) 1 % (0-3) Neutrophils # (Auto) 14.0 x10^3/uL (1.8-7.7) 13.4 x10^3/uL (1.8-7.7) Lymphocytes # (Auto) 4.6 x10^3/uL (1.0-4.8) 2.7 x10^3/uL (1.0-4.8) Monocytes # (Auto) 0.7 x10^3/uL (0.0-1.1) 0.7 x10^3/uL (0.0-1.1) Eosinophils # (Auto) 0.0 x10^3/uL (0.0-0.7) 0.2 x10^3/uL (0.0-0.7) Basophils # (Auto) 0.1 x10^3/uL (0.0-0.2) 0.1 x10^3/uL (0.0-0.2) Segmented Neutrophils % 64 % (35-66) Band Neutrophils % 13 % (0-9) Lymphocytes % 22 % (24-48) Monocytes % 1 % (0-10) Platelet Estimate Adequate (ADEQUATE) Hypochromasia Slight Poikilocytosis Slight Anisocytosis Slight Sodium Level 142 mmol/L (136-145) 142 mmol/L (136-145) Potassium Level 3.4 mmol/L (3.5-5.1) 3.6 mmol/L (3.5-5.1) Chloride Level 108 mmol/L (98-107) 108 mmol/L (98-107) Carbon Dioxide Level 23 mmol/L (21-32) 24 mmol/L (21-32) Anion Gap 11 (6-14) 10 (6-14) Blood Urea Nitrogen 9 mg/dL (8-26) 8 mg/dL (8-26) Creatinine 1.1 mg/dL (0.7-1.3) 0.8 mg/dL (0.7-1.3) Estimated GFR (Cockcroft-Gault) 85.1 122.8 BUN/Creatinine Ratio 8 (6-20) 10 (6-20) Glucose Level 150 mg/dL (70-99) 118 mg/dL (70-99) Calcium Level 7.6 mg/dL (8.5-10.1) 7.7 mg/dL (8.5-10.1) Magnesium Level 2.3 mg/dL (1.8-2.4) Total Bilirubin 0.9 mg/dL (0.2-1.0) 1.2 mg/dL (0.2-1.0) Aspartate Amino Transf (AST/SGOT) 36 U/L (15-37) 27 U/L (15-37) Alanine Aminotransferase (ALT/SGPT) 23 U/L (16-63) 22 U/L (16-63) Alkaline Phosphatase 82 U/L (46-116) 80 U/L (46-116) Lactate Dehydrogenase 428 U/L (85-227) Troponin I Quantitative 0.398 ng/mL (0.000-0.055) WB-Sjw-A-Type Natriuretic Peptide 3415 pg/mL (0-124) Total Protein 6.5 g/dL (6.4-8.2) 6.4 g/dL (6.4-8.2) Albumin 2.5 g/dL (3.4-5.0) 2.4 g/dL (3.4-5.0) Albumin/Globulin Ratio 0.6 (1.0-1.7) 0.6 (1.0-1.7) Triglycerides Level 50 mg/dL (0-150) Cholesterol Level 84 mg/dL (0-200) LDL Cholesterol, Calculated 42 mg/dL (0-100) VLDL Cholesterol, Calculated 10 mg/dL (0-40) Non-HDL Cholesterol Calculated 52 mg/dL (0-129) HDL Cholesterol 32 mg/dL (40-60) Cholesterol/HDL Ratio 2.6 Thyroid Stimulating Hormone (TSH) 0.564 uIU/mL (0.358-3.74) Heparin Anti-Xa Act, Unfractionated < 0.10 IU/mL (0.30-0.70) < 0.10 IU/mL (0.30-0.70) Prothrombin Time 16.5 SEC (11.7-14.0) Prothromb Time International Ratio 1.4 (0.8-1.1) Activated Partial Thromboplast Time 66 SEC (24-38) O2 Saturation 97 % (92-99) Arterial Blood pH 7.41 (7.35-7.45) Arterial Blood pH (Temp corrected) 7.39 Arterial Blood pCO2 at Patient Temp 34 mmHg (35-46) Arterial Blood pCO2 (Temp correct) 36 mmHg Arterial Blood pO2 at Patient Temp 88 mmHg (75-108) Arterial Blood pO2 (Temp corrected) 96 mmHg Arterial Blood HCO3 21 mmol/L (21-28) Arterial Blood Base Excess -3 mmol/L (-3-3) FiO2 70/vent Medications Active Scripts Medications Dose Route/Sig Max Daily Dose Days Date Category Furosemide 40 Mg Tablet 40 Mg PO DAILY 02/02/20 Rx Tramadol Hcl 50 Mg Tablet 50 Mg PO PRN Q6HRS PRN 6 02/02/20 Rx Metoprolol Succinate ( Xl ) (Metoprolol Succinate) 25 Mg Tab.er.24h 12.5 Mg PO DAILY 02/02/20 Rx Clopidogrel (Clopidogrel Bisulfate) 75 Mg Tablet 75 Mg PO DAILYWBKFT 02/02/20 Rx Lisinopril 10 Mg Tablet 1 Tab PO DAILY 02/02/20 Rx Atorvastatin Calcium 80 Mg Tablet 80 Mg PO QHS 02/02/20 Rx Klor-Con M20 (Potassium Chloride) 20 Meq Tab.er.prt 20 Meq PO TID 01/31/20 Reported Pantoprazole Sodium (Pantoprazole Sodium) 40 Mg Tablet.dr 40 Mg PO BID 01/31/20 Reported Duoneb 0.5-3(2.5) Mg/3 Ml (Albuterol/Ipratropium) 3 Ml Ampul.neb 3 Ml NEB PRN Q6HRS PRN 01/31/20 Reported Acetaminophen 325 Mg Tablet 1 Tab PO PRN Q6HRS PRN 24 01/31/20 Reported Triumeq Tablet (Abacavir/Dolutegravir/Lamivudi) 1 Each Tablet 1 Tab PO DAILY 30 01/31/20 Reported Gabapentin (Gabapentin) 300 Mg Capsule 100 Mg PO TID 01/31/20 Reported Children's Aspirin (Aspirin) 81 Mg Tab.chew 1 Tab PO DAILY 30 20 Reported Comments CXR IMPRESSION: Aeration of the lungs appears similar to the prior examination. Support lines and tubes are in similar position. Impression . IMPRESSION: 1. Acute hypoxemic respiratory failure secondary to nhc-op-vcnsylzd cardiopulmonary arrest. 2. History of ventricular fibrillation with previous qkr-md-kaxwgxrt cardiac arrest. 3. History of coronary artery disease, status post percutaneous coronary intervention to the circumflex. 4. History of gastrointestinal bleed. 5. Chronic systolic heart failure. 6. Ischemic cardiomyopathy, ejection fraction 20-25%. 7. Status post pacemaker implantation. 8. Hypertension. 9. Hypokalemia. 10. Previous kidney injury requiring hemodialysis. 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 12. Human immunodeficiency virus. 13. Polysubstance use. Plan . Continue current ventilatory support FiO2 50% and a PEEP of 5 Follow chest x-ray as needed/ABG make changes as indicated Continue vasopressors as needed to keep MAP greater than 65 Continue empiric antibiotics per infectious disease, currently on Zyvox and Zosyn Continue heparin drip per cardiology recommendations follow other cardiology recommendations Tube feeding on hold per GI, concern for ileus follow other GI recommendations DVT/GI prophylaxis Discussed with RN and RT Critical care time [id number] DAMIÁN HASTINGS MD Mar 21, 2020 09:22
--- NOTE | 2020-03-21 09:46 | PDOC ---
GREGORY REYNA MULUGETA 03/21/20 0946: CARDIO Progress Notes Date and Time Date of Service 03/21/20 Time of Evaluation 09 Subjective Subjective: Other (sedated, intubated ) Vitals Vitals Vital Signs Date Time Temp Pulse Resp B/P (MAP) Pulse Ox O2 Delivery O2 Flow Rate FiO2 03/21/20 09:00 109 24 112/70 (84) 98 Ventilator 03/21/20 08:00 100.9 100.9 Weight Weight [ ] Input and Output Intake and Output Intake and Output 03/21/20 07:00 Intake Total 3140 ml Output Total 2325 ml Balance 815 ml Intake IV Total 3140 ml Output Urine Total 2325 ml Laboratory Labs Laboratory Tests Test 03/20/20 13:10 03/20/20 22:10 03/21/20 04:53 03/21/20 08:00 White Blood Count 19.5 x10^3/uL (4.0-11.0) 17.2 x10^3/uL (4.0-11.0) Red Blood Count 3.76 x10^6/uL (4.30-5.70) 3.65 x10^6/uL (4.30-5.70) Hemoglobin 9.3 g/dL (13.0-17.5) 9.1 g/dL (13.0-17.5) Hematocrit 30.1 % (39.0-53.0) 29.0 % (39.0-53.0) Mean Corpuscular Volume 80 fL (79-100) 80 fL (79-100) Mean Corpuscular Hemoglobin 25 pg (25-35) 25 pg (25-35) Mean Corpuscular Hemoglobin Concent 31 g/dL (31-37) 31 g/dL (31-37) Red Cell Distribution Width 17.2 % (11.5-14.5) 17.4 % (11.5-14.5) Platelet Count 334 x10^3/uL (140-400) 307 x10^3/uL (140-400) Neutrophils (%) (Auto) 72 % (31-73) 78 % (31-73) Lymphocytes (%) (Auto) 24 % (24-48) 16 % (24-48) Monocytes (%) (Auto) 4 % (0-9) 4 % (0-9) Eosinophils (%) (Auto) 0 % (0-3) 1 % (0-3) Basophils (%) (Auto) 0 % (0-3) 1 % (0-3) Neutrophils # (Auto) 14.0 x10^3/uL (1.8-7.7) 13.4 x10^3/uL (1.8-7.7) Lymphocytes # (Auto) 4.6 x10^3/uL (1.0-4.8) 2.7 x10^3/uL (1.0-4.8) Monocytes # (Auto) 0.7 x10^3/uL (0.0-1.1) 0.7 x10^3/uL (0.0-1.1) Eosinophils # (Auto) 0.0 x10^3/uL (0.0-0.7) 0.2 x10^3/uL (0.0-0.7) Basophils # (Auto) 0.1 x10^3/uL (0.0-0.2) 0.1 x10^3/uL (0.0-0.2) Segmented Neutrophils % 64 % (35-66) Band Neutrophils % 13 % (0-9) Lymphocytes % 22 % (24-48) Monocytes % 1 % (0-10) Platelet Estimate Adequate (ADEQUATE) Hypochromasia Slight Poikilocytosis Slight Anisocytosis Slight Sodium Level 142 mmol/L (136-145) 142 mmol/L (136-145) Potassium Level 3.4 mmol/L (3.5-5.1) 3.6 mmol/L (3.5-5.1) Chloride Level 108 mmol/L (98-107) 108 mmol/L (98-107) Carbon Dioxide Level 23 mmol/L (21-32) 24 mmol/L (21-32) Anion Gap 11 (6-14) 10 (6-14) Blood Urea Nitrogen 9 mg/dL (8-26) 8 mg/dL (8-26) Creatinine 1.1 mg/dL (0.7-1.3) 0.8 mg/dL (0.7-1.3) Estimated GFR (Cockcroft-Gault) 85.1 122.8 BUN/Creatinine Ratio 8 (6-20) 10 (6-20) Glucose Level 150 mg/dL (70-99) 118 mg/dL (70-99) Calcium Level 7.6 mg/dL (8.5-10.1) 7.7 mg/dL (8.5-10.1) Magnesium Level 2.3 mg/dL (1.8-2.4) Total Bilirubin 0.9 mg/dL (0.2-1.0) 1.2 mg/dL (0.2-1.0) Aspartate Amino Transf (AST/SGOT) 36 U/L (15-37) 27 U/L (15-37) Alanine Aminotransferase (ALT/SGPT) 23 U/L (16-63) 22 U/L (16-63) Alkaline Phosphatase 82 U/L (46-116) 80 U/L (46-116) Lactate Dehydrogenase 428 U/L (85-227) Troponin I Quantitative 0.398 ng/mL (0.000-0.055) HY-Sgg-W-Type Natriuretic Peptide 3415 pg/mL (0-124) Total Protein 6.5 g/dL (6.4-8.2) 6.4 g/dL (6.4-8.2) Albumin 2.5 g/dL (3.4-5.0) 2.4 g/dL (3.4-5.0) Albumin/Globulin Ratio 0.6 (1.0-1.7) 0.6 (1.0-1.7) Triglycerides Level 50 mg/dL (0-150) Cholesterol Level 84 mg/dL (0-200) LDL Cholesterol, Calculated 42 mg/dL (0-100) VLDL Cholesterol, Calculated 10 mg/dL (0-40) Non-HDL Cholesterol Calculated 52 mg/dL (0-129) HDL Cholesterol 32 mg/dL (40-60) Cholesterol/HDL Ratio 2.6 Thyroid Stimulating Hormone (TSH) 0.564 uIU/mL (0.358-3.74) Heparin Anti-Xa Act, Unfractionated < 0.10 IU/mL (0.30-0.70) < 0.10 IU/mL (0.30-0.70) Prothrombin Time 16.5 SEC (11.7-14.0) Prothromb Time International Ratio 1.4 (0.8-1.1) Activated Partial Thromboplast Time 66 SEC (24-38) O2 Saturation 97 % (92-99) Arterial Blood pH 7.41 (7.35-7.45) Arterial Blood pH (Temp corrected) 7.39 Arterial Blood pCO2 at Patient Temp 34 mmHg (35-46) Arterial Blood pCO2 (Temp correct) 36 mmHg Arterial Blood pO2 at Patient Temp 88 mmHg (75-108) Arterial Blood pO2 (Temp corrected) 96 mmHg Arterial Blood HCO3 21 mmol/L (21-28) Arterial Blood Base Excess -3 mmol/L (-3-3) FiO2 70/vent Physical Exam HEENT: Neck Supple W Full Motion Chest: Symmetric LUNGS: Other (mechanical vent ) Heart: RRR Abdomen: Other (non-distended ) Extremities: No Edema Neurology: other (sedated ) Assessment Assessment 1. OOH, witness cardiac arrest; Rhythm upon arrival unknown, although shockable as he was defibrillated x1 with ROSC. 2. Mild troponin elevation; trop highest 0.3 s/p resuscitation. EKG with LBBB 3. Leukocytosis, fevers. ? sepsis 4. H/o Vfib OOH arrest; probable ischemic in nature, antiarrhythmics discontinued in past due to QTc prolongation of 600. EKG at [facility] with QTc 507, 528. 5. Acute respiratory failure secondary to above; s/p intubation 6. CAD s/p PCI/BMS to the LCx 12/11/19. Treated with ASA,Brilinta initially, which was held due to recurrent GIB requiring transfusions.Due to recent PCI/BMS, Plavix was resumed while at [facility]. ASA was discontinued.No further bleeding concerns. 7. Chronic systolic CHF; appears compensated 8. ICM; LVEF 20-25%. 9. SSS s/p leadless PPM implantation ([employer]tronic Micra). Device does not store history rhythm data. 10. Hypertension; low end. requiring pressor support 11. Hypokalemia, hypomagnesemia 12. H/o DAIJA requiringHD; renal function improvedand HD catheter removed 13. 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 HIV 15. Substance abuse; UDS + cocaine at [facility] 16. Noncompliance; s/o reports he has not been taken meds routinely Recommendations Secondary prevention measures as able. Plavix, statin therapy. No ASA with h/o GIB Hold lisinopril, Toprol with hypotension Wean off pressor support as able Continue heparin through tomorrow am. Unable to start antiarrhythmic therapy due to prolonged QT Echo to assess LV systolic function if COVID PCR negative Lung optimization, vent management as per pulm Supportive care Justicifation of Admission Dx: Justifications for Admission: Justification of Admission Dx: Yes YAMILE HDEZ MD 03/21/20 1613: CARDIO Progress Notes Assessment Assessment Patient seen and evaluated. I agree with our nurse practitioners assessment and plan. OOH, witness cardiac arrest; Rhythm upon arrival unknown, although shockable as he was defibrillated x1 with ROSC. Mild troponin elevation; trop highest 0.3 s/p resuscitation. EKG with LBBB H/o Vfib OOH arrest; probable ischemic in nature, antiarrhythmics discontinued in past due to QTc prolongation of 600. EKG at [facility] with QTc 507, 528. Acute respiratory failure secondary to above; s/p intubation. Continues to be followed by pulmonary. CAD s/p PCI/BMS to the LCx 12/11/19. Treated with ASA,Brilinta initially, which was held due to recurrent GIB requiring transfusions.Due to recent PCI/BMS, Plavix was resumed while at [facility]. ASA was discontinued.No further bleeding concerns. ICM; LVEF 20-25%. SSS s/p leadless PPM implantation ([employer]tronic Micra). Device does not store history rhythm data. Hypertension; low end. requiring pressor support HIV Substance abuse; UDS + cocaine at [facility] Noncompliance; s/o reports he has not been taken meds routinely GREGORY REYNA APRN Mar 21, 2020 09:46 YAMILE HDEZ MD Mar 21, 2020 16:13
--- NOTE | 2020-03-21 11:20 | PDOC ---
Date of Service: DATE: 03/21/20 TIME: 11:17 Objective: Objective: Smear of stool per nurse, no bleeding. Vital Signs: Vital Signs Date Time Temp Pulse Resp B/P (MAP) Pulse Ox O2 Delivery O2 Flow Rate FiO2 03/21/20 10:00 109 22 109/68 (82) 99 Ventilator 03/21/20 08:00 100.9 100.9 Labs: Laboratory Tests Test 03/20/20 13:10 03/20/20 22:10 03/21/20 04:53 03/21/20 08:00 White Blood Count 19.5 x10^3/uL 17.2 x10^3/uL Red Blood Count 3.76 x10^6/uL 3.65 x10^6/uL Hemoglobin 9.3 g/dL 9.1 g/dL Hematocrit 30.1 % 29.0 % Mean Corpuscular Volume 80 fL 80 fL Mean Corpuscular Hemoglobin 25 pg 25 pg Mean Corpuscular Hemoglobin Concent 31 g/dL 31 g/dL Red Cell Distribution Width 17.2 % 17.4 % Platelet Count 334 x10^3/uL 307 x10^3/uL Neutrophils (%) (Auto) 72 % 78 % Lymphocytes (%) (Auto) 24 % 16 % Monocytes (%) (Auto) 4 % 4 % Eosinophils (%) (Auto) 0 % 1 % Basophils (%) (Auto) 0 % 1 % Neutrophils # (Auto) 14.0 x10^3/uL 13.4 x10^3/uL Lymphocytes # (Auto) 4.6 x10^3/uL 2.7 x10^3/uL Monocytes # (Auto) 0.7 x10^3/uL 0.7 x10^3/uL Eosinophils # (Auto) 0.0 x10^3/uL 0.2 x10^3/uL Basophils # (Auto) 0.1 x10^3/uL 0.1 x10^3/uL Segmented Neutrophils % 64 % Band Neutrophils % 13 % Lymphocytes % 22 % Monocytes % 1 % Platelet Estimate Adequate Hypochromasia Slight Poikilocytosis Slight Anisocytosis Slight Sodium Level 142 mmol/L 142 mmol/L Potassium Level 3.4 mmol/L 3.6 mmol/L Chloride Level 108 mmol/L 108 mmol/L Carbon Dioxide Level 23 mmol/L 24 mmol/L Anion Gap 11 10 Blood Urea Nitrogen 9 mg/dL 8 mg/dL Creatinine 1.1 mg/dL 0.8 mg/dL Estimated GFR (Cockcroft-Gault) 85.1 122.8 BUN/Creatinine Ratio 8 10 Glucose Level 150 mg/dL 118 mg/dL Calcium Level 7.6 mg/dL 7.7 mg/dL Magnesium Level 2.3 mg/dL Total Bilirubin 0.9 mg/dL 1.2 mg/dL Aspartate Amino Transf (AST/SGOT) 36 U/L 27 U/L Alanine Aminotransferase (ALT/SGPT) 23 U/L 22 U/L Alkaline Phosphatase 82 U/L 80 U/L Lactate Dehydrogenase 428 U/L Troponin I Quantitative 0.398 ng/mL VT-Lpo-E-Type Natriuretic Peptide 3415 pg/mL Total Protein 6.5 g/dL 6.4 g/dL Albumin 2.5 g/dL 2.4 g/dL Albumin/Globulin Ratio 0.6 0.6 Triglycerides Level 50 mg/dL Cholesterol Level 84 mg/dL LDL Cholesterol, Calculated 42 mg/dL VLDL Cholesterol, Calculated 10 mg/dL Non-HDL Cholesterol Calculated 52 mg/dL HDL Cholesterol 32 mg/dL Cholesterol/HDL Ratio 2.6 Thyroid Stimulating Hormone (TSH) 0.564 uIU/mL Heparin Anti-Xa Act, Unfractionated < 0.10 IU/mL < 0.10 IU/mL Prothrombin Time 16.5 SEC Prothromb Time International Ratio 1.4 Activated Partial Thromboplast Time 66 SEC O2 Saturation 97 % Arterial Blood pH 7.41 Arterial Blood pH (Temp corrected) 7.39 Arterial Blood pCO2 at Patient Temp 34 mmHg Arterial Blood pCO2 (Temp correct) 36 mmHg Arterial Blood pO2 at Patient Temp 88 mmHg Arterial Blood pO2 (Temp corrected) 96 mmHg Arterial Blood HCO3 21 mmol/L Arterial Blood Base Excess -3 mmol/L FiO2 70/vent PE: GEN: intubated - visual exam done, in COVID isolation LUNGS: vent HEART: tachycardic ABD: non-distended NEURO/PSYCH: sedated A/P: S/p arrest Fever, rapid COVID negative CAD, HIV, +cocaine Anemia - stable; h/o GI bleeding but none now -- Continue IV PPI. Justicifation of Admission Dx: Justifications for Admission: Justification of Admission Dx: Yes YNES CLEARY Mar 21, 2020 11:20
--- NOTE | 2020-03-21 16:00 | NUR ---
Patient turned to right side, opened eyes, attempted to sit up in bed, unable to orient, causing patient's heart rate to increase to 120s with bigeminal PVCs. Patient given bolus of sedation and heart rate shortly improved back to 90s without PVCs.
--- NOTE | 2020-03-21 16:09 | NUR ---
SS following up with discharge planning. SS reviewed pt chart and discussed with pt RN. Pt is currently on the vent at 50%. Pt on IV Zyvox, IV Zosyn, and Heparin drip. Not stable. SS will continue to follow for discharge planning.
[2020-03-21] MEDS: ATORVASTATIN CALCIUM 40 MG TABLET. PO SCH (21:03)
[2020-03-22] VITALS (25 sets, daily range): BP systolic 90–148; BP diastolic 55–84
[2020-03-22 03:42] LABS: BASO # 0.1 x10^3/uL (0.0-0.2); BASO % 1 % (0-3); EOS # 0.3 x10^3/uL (0.0-0.7); EOS % 2 % (0-3); HEMATOCRIT 26.7 % (39.0-53.0); HEMOGLOBIN 8.3 g/dL (13.0-17.5); LYMPH # 2.2 x10^3/uL (1.0-4.8); LYMPH % 18 % (24-48); MEAN CORPUSCULAR HEMOGLOBIN 25 pg (25-35); MEAN CORPUSCULAR HGB CONC 31 g/dL (31-37); MEAN CORPUSCULAR VOLUME 80 fL (79-100); MONO # 0.7 x10^3/uL (0.0-1.1); MONO % 6 % (0-9); NEUT % 73 % (31-73); PLATELET COUNT 260 x10^3/uL (140-400); RED BLOOD COUNT 3.35 x10^6/uL (4.30-5.70); RED CELL DISTRIBUTION WIDTH 17.2 % (11.5-14.5); WHITE BLOOD COUNT 12.3 x10^3/uL (4.0-11.0)
[2020-03-22 04:00] LABS: ALBUMIN 2.2 g/dL (3.4-5.0); ALBUMIN/GLOBULIN RATIO 0.5 (1.0-1.7); CALCIUM 8.2 mg/dL (8.5-10.1); CREATININE 0.9 mg/dL (0.7-1.3); GFR 107.2; POTASSIUM 3.7 mmol/L (3.5-5.1); TOTAL BILIRUBIN 0.9 mg/dL (0.2-1.0); TOTAL PROTEIN 6.3 g/dL (6.4-8.2)
[2020-03-22] MEDS: IV NORMAL SALINE 1000ML BAG 1,000 ML IV SCH ×3 (05:29→23:46)
[2020-03-22] MEDS: PIPERACILLIN/TAZOBACTAM 3.375 GM in IV NORMAL SALINE 50ML 50 ML IV SCH ×4 (05:40→23:46)
[2020-03-22] MEDS: MIDAZOLAM 100mg/100ml NS BAG 100 ML IV PRN ×2 (06:15→15:33)
--- NOTE | 2020-03-22 08:03 | PDOC ---
PROGRESS NOTES Date of Service: DATE: 03/22/20 TIME: 08:03 Chief Complaint Chief Complaint VTE Prophylaxis Ordered VTE Prophylaxis Devices: Yes VTE Pharmacological Prophylaxi: Yes Assessment/Plan Assessment/Plan ASSESSMENT 1. out of hospital arrest , witness cardiac arrest; Defibrillation // AMI ruled out. 2. H/o Vfib probable ischemic in nature, antiarrhythmics discontinued in past due to QTc prolongation of 600. 3. Acute hypoxic respiratory failure requiring vent support 4. CAD s/p PCI/BMS to the LCx 12/11/19. Treated with ASA,Brilinta initially, which was held due to recurrent GIB requiring transfusions.Due to recent PCI/BMS, Plavix was resumed while at [facility]. ASA was d/c'd 5. Chronic systolic CHF 6. ischemic cardiomyopathy LVEF 20-25%. 7. SSS s/p leadless PPM 8. Hypertension; // requiring pressor support 9. Hypokalemia, hypomagnesemia 10. H/o DAIJA requiringHD; renal function improvedand HD catheter removed 11. 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 HIV 13. Substance abuse; UDS + cocaine , ALCOHOL, TOBACCO 14. Leukocytosis, fevers. ? sepsis Covid negative. 15. H/o Vfib OOH arrest; probable ischemic in nature, antiarrhythmics discontinued in past due to QTc prolongation of 600. EKG at [facility] with QTc 507, 528. 16. Human immunodeficiency virus, CD4 was 403 on 01/16 viral load less than 20 on 01/23on [facility]. 17. History of ventricular tachycardia, Coronary artery disease, status post PCI. 18. Status post pacemaker for bradycardia 12/27 at [place]. plan icu bed cardiology consult pulm consult Device interrogation Replace Mg, lytes Secondary prevention measures as able Resume Plavix. No ASA due to recent GIB Monitor LFTs Pressor support; wean as able Hold lisinopril, Toprol with hypotension Echo vent management GI CONSULT COVID 19 SCREEN vent support assist-control mode 50% and PEEP of 5 On heparin drip per cardiology hiv screen Echo to assess LV systolic function if COVID PCR negative Tube feeding on hold per GI, concern for ileus follow other GI recommendations 39 MIN CC TIME History of Present Illness History of Present Illness Identification/Chief Complaint Chief Complaint admitted to icu , out of hospial arrest CAD s/p PCI/stent, cardiomyopathy, and prior cardiac arrest, presented secondary to cardiac arrest at home. Was at home with partner, Stevenson, watching television. Patient suddenly started breathing more deeply and began gasping for air. Eyes were wide and glassy. Was unresponsive. Partner was unable to feel pulse so he put him on the floor, called EMS and began chest compressions. Partner reports him drinking 3 malt beverages that evening while watching TV. No known sick contacts. EMS arrived within minutes. ROSC returned following one defibrillation. Although partner declined drug use, Narcan was administered en route due to pinpoint pupils. Limited effect from the Narcan. UDS was + for cocaine. IS COVID 19 PUI hx cardiac arrest on December 19, 2019. Patient was apparently found arrest in his car EMS noted in v-fib. ROSC was achieved following 1 defibrillation and 1 round of epi.//activated as STEMI with LBBB. Emergent cath notable for blockage of left circumflex. //PCI/BMS to the Left circumflex. went into Vfib in cath lab technologist and was initiated on Amiodarone therapy. LVEF noted at 20-25%. Developed DAIJA due to cardiogenic shock. had multiple episodes of bradycardia/significant pauses mostly related to suctioning. then leadlessPPM placement.Treated for Klebsiella PNA as well. course further complicated by GIB requiring tranfusion. 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 Past Medical History Past Medical History PAST MEDICAL HISTORY Past Medical History HIV, HTN, CAD s/p PCI/BMS to the LCx, GIB from arteriovenous malformation, esophagitis, gastritis, DAIJA requiring HD, bradycardia s/p Leadless PPM PAST SURGICAL HISTORY Past Surgical History: Pacemaker, Tonsillectomy, Other (PCI/stent ) FAMILY HISTORY Family History Other (no pertinent history) SOCIAL HISTORY Social History Smoke: <1 pack per day ALCOHOL: none Drugs: None Lives: with Family (with partner ) Cardiovascular: CAD, HTN, Hyperlipidemia Infectious disease: HIV Past Surgical History Past Surgical History: Pacemaker Family History Family History: Hypertension, Other Social History Smoke: <1 pack per day ALCOHOL: occassional Drugs: None, Cocaine Vitals Vitals Vital Signs Date Time Temp Pulse Resp B/P (MAP) Pulse Ox O2 Delivery O2 Flow Rate FiO2 03/22/20 07:51 100 5.0 03/22/20 06:00 71 20 110/70 (83) Ventilator 03/22/20 04:00 98.6 98.6 Physical Exam Physical Exam GENERAL: Intubated, sedated. HEENT: Conjunctival suffusion. Pupils equal, reactive. ETT OGT present. NECK: Supple. LUNGS: Clear anteriorly. HEART: S1, S2, tachycardia. ABDOMEN: Obese, mildly distended. Bowel sounds present. EXTREMITIES: No edema or cyanosis. DERMATOLOGIC: Warm and dry. No generalized rash. NEUROLOGIC: Unable to assess. General: Other (sedated ) Heart: Regular rate Lungs: Clear Abdomen: Soft Extremities: No edema, Normal pulses Skin: No significant lesion Labs LABS YAMILE HDEZ MD NO PCP DAMIÁN HASTINGS MD,CANDELARIA Stevenson MD ORDERED: RESP CULTURE COMMENTS: Has specimen been collected/obtained? Y TRACH ASPERATION Procedure Result GRAM STAIN EVALUATION Final Final This specimen is of good quality and is acceptable for routine bacterial culture. Culture results to follow. GRAM POSITIVE COCCI:FEW SQUAMOUS EPI CELL:NONE SEEN PMN (WBCs):MODERATE Unless otherwise specified, Testing Performed by: [address] [address] For Inquires, the Physician may contact the Microbiology department at [phone] RESPIRATORY CULTURE PENDING Laboratory Tests Test 03/21/20 11:25 03/21/20 20:48 03/22/20 03:15 Heparin Anti-Xa Act, Unfractionated 0.12 IU/mL (0.30-0.70) 0.44 IU/mL (0.30-0.70) 0.44 IU/mL (0.30-0.70) Troponin I Quantitative 0.153 ng/mL (0.000-0.055) White Blood Count 12.3 x10^3/uL (4.0-11.0) Red Blood Count 3.35 x10^6/uL (4.30-5.70) Hemoglobin 8.3 g/dL (13.0-17.5) Hematocrit 26.7 % (39.0-53.0) Mean Corpuscular Volume 80 fL (79-100) Mean Corpuscular Hemoglobin 25 pg (25-35) Mean Corpuscular Hemoglobin Concent 31 g/dL (31-37) Red Cell Distribution Width 17.2 % (11.5-14.5) Platelet Count 260 x10^3/uL (140-400) Neutrophils (%) (Auto) 73 % (31-73) Lymphocytes (%) (Auto) 18 % (24-48) Monocytes (%) (Auto) 6 % (0-9) Eosinophils (%) (Auto) 2 % (0-3) Basophils (%) (Auto) 1 % (0-3) Neutrophils # (Auto) 9.0 x10^3/uL (1.8-7.7) Lymphocytes # (Auto) 2.2 x10^3/uL (1.0-4.8) Monocytes # (Auto) 0.7 x10^3/uL (0.0-1.1) Eosinophils # (Auto) 0.3 x10^3/uL (0.0-0.7) Basophils # (Auto) 0.1 x10^3/uL (0.0-0.2) Sodium Level 140 mmol/L (136-145) Potassium Level 3.7 mmol/L (3.5-5.1) Chloride Level 109 mmol/L (98-107) Carbon Dioxide Level 24 mmol/L (21-32) Anion Gap 7 (6-14) Blood Urea Nitrogen 8 mg/dL (8-26) Creatinine 0.9 mg/dL (0.7-1.3) Estimated GFR (Cockcroft-Gault) 107.2 BUN/Creatinine Ratio 9 (6-20) Glucose Level 115 mg/dL (70-99) Calcium Level 8.2 mg/dL (8.5-10.1) Total Bilirubin 0.9 mg/dL (0.2-1.0) Aspartate Amino Transf (AST/SGOT) 17 U/L (15-37) Alanine Aminotransferase (ALT/SGPT) 20 U/L (16-63) Alkaline Phosphatase 77 U/L (46-116) Total Protein 6.3 g/dL (6.4-8.2) Albumin 2.2 g/dL (3.4-5.0) Albumin/Globulin Ratio 0.5 (1.0-1.7) Comment Review of Relevant I have reviewed the following items joel (where applicable) has been applied. Labs Laboratory Tests Test 03/20/20 13:10 03/20/20 22:10 03/21/20 04:53 03/21/20 08:00 White Blood Count 19.5 x10^3/uL (4.0-11.0) 17.2 x10^3/uL (4.0-11.0) Red Blood Count 3.76 x10^6/uL (4.30-5.70) 3.65 x10^6/uL (4.30-5.70) Hemoglobin 9.3 g/dL (13.0-17.5) 9.1 g/dL (13.0-17.5) Hematocrit 30.1 % (39.0-53.0) 29.0 % (39.0-53.0) Mean Corpuscular Volume 80 fL (79-100) 80 fL (79-100) Mean Corpuscular Hemoglobin 25 pg (25-35) 25 pg (25-35) Mean Corpuscular Hemoglobin Concent 31 g/dL (31-37) 31 g/dL (31-37) Red Cell Distribution Width 17.2 % (11.5-14.5) 17.4 % (11.5-14.5) Platelet Count 334 x10^3/uL (140-400) 307 x10^3/uL (140-400) Neutrophils (%) (Auto) 72 % (31-73) 78 % (31-73) Lymphocytes (%) (Auto) 24 % (24-48) 16 % (24-48) Monocytes (%) (Auto) 4 % (0-9) 4 % (0-9) Eosinophils (%) (Auto) 0 % (0-3) 1 % (0-3) Basophils (%) (Auto) 0 % (0-3) 1 % (0-3) Neutrophils # (Auto) 14.0 x10^3/uL (1.8-7.7) 13.4 x10^3/uL (1.8-7.7) Lymphocytes # (Auto) 4.6 x10^3/uL (1.0-4.8) 2.7 x10^3/uL (1.0-4.8) Monocytes # (Auto) 0.7 x10^3/uL (0.0-1.1) 0.7 x10^3/uL (0.0-1.1) Eosinophils # (Auto) 0.0 x10^3/uL (0.0-0.7) 0.2 x10^3/uL (0.0-0.7) Basophils # (Auto) 0.1 x10^3/uL (0.0-0.2) 0.1 x10^3/uL (0.0-0.2) Segmented Neutrophils % 64 % (35-66) Band Neutrophils % 13 % (0-9) Lymphocytes % 22 % (24-48) Monocytes % 1 % (0-10) Platelet Estimate Adequate (ADEQUATE) Hypochromasia Slight Poikilocytosis Slight Anisocytosis Slight Sodium Level 142 mmol/L (136-145) 142 mmol/L (136-145) Potassium Level 3.4 mmol/L (3.5-5.1) 3.6 mmol/L (3.5-5.1) Chloride Level 108 mmol/L (98-107) 108 mmol/L (98-107) Carbon Dioxide Level 23 mmol/L (21-32) 24 mmol/L (21-32) Anion Gap 11 (6-14) 10 (6-14) Blood Urea Nitrogen 9 mg/dL (8-26) 8 mg/dL (8-26) Creatinine 1.1 mg/dL (0.7-1.3) 0.8 mg/dL (0.7-1.3) Estimated GFR (Cockcroft-Gault) 85.1 122.8 BUN/Creatinine Ratio 8 (6-20) 10 (6-20) Glucose Level 150 mg/dL (70-99) 118 mg/dL (70-99) Calcium Level 7.6 mg/dL (8.5-10.1) 7.7 mg/dL (8.5-10.1) Magnesium Level 2.3 mg/dL (1.8-2.4) Total Bilirubin 0.9 mg/dL (0.2-1.0) 1.2 mg/dL (0.2-1.0) Aspartate Amino Transf (AST/SGOT) 36 U/L (15-37) 27 U/L (15-37) Alanine Aminotransferase (ALT/SGPT) 23 U/L (16-63) 22 U/L (16-63) Alkaline Phosphatase 82 U/L (46-116) 80 U/L (46-116) Lactate Dehydrogenase 428 U/L (85-227) Troponin I Quantitative 0.398 ng/mL (0.000-0.055) TW-Cai-R-Type Natriuretic Peptide 3415 pg/mL (0-124) Total Protein 6.5 g/dL (6.4-8.2) 6.4 g/dL (6.4-8.2) Albumin 2.5 g/dL (3.4-5.0) 2.4 g/dL (3.4-5.0) Albumin/Globulin Ratio 0.6 (1.0-1.7) 0.6 (1.0-1.7) Triglycerides Level 50 mg/dL (0-150) Cholesterol Level 84 mg/dL (0-200) LDL Cholesterol, Calculated 42 mg/dL (0-100) VLDL Cholesterol, Calculated 10 mg/dL (0-40) Non-HDL Cholesterol Calculated 52 mg/dL (0-129) HDL Cholesterol 32 mg/dL (40-60) Cholesterol/HDL Ratio 2.6 Thyroid Stimulating Hormone (TSH) 0.564 uIU/mL (0.358-3.74) Heparin Anti-Xa Act, Unfractionated < 0.10 IU/mL (0.30-0.70) < 0.10 IU/mL (0.30-0.70) Prothrombin Time 16.5 SEC (11.7-14.0) Prothromb Time International Ratio 1.4 (0.8-1.1) Activated Partial Thromboplast Time 66 SEC (24-38) O2 Saturation 97 % (92-99) Arterial Blood pH 7.41 (7.35-7.45) Arterial Blood pH (Temp corrected) 7.39 Arterial Blood pCO2 at Patient Temp 34 mmHg (35-46) Arterial Blood pCO2 (Temp correct) 36 mmHg Arterial Blood pO2 at Patient Temp 88 mmHg (75-108) Arterial Blood pO2 (Temp corrected) 96 mmHg Arterial Blood HCO3 21 mmol/L (21-28) Arterial Blood Base Excess -3 mmol/L (-3-3) FiO2 70/vent Test 03/21/20 11:25 03/21/20 20:48 03/22/20 03:15 Heparin Anti-Xa Act, Unfractionated 0.12 IU/mL (0.30-0.70) 0.44 IU/mL (0.30-0.70) 0.44 IU/mL (0.30-0.70) Troponin I Quantitative 0.153 ng/mL (0.000-0.055) White Blood Count 12.3 x10^3/uL (4.0-11.0) Red Blood Count 3.35 x10^6/uL (4.30-5.70) Hemoglobin 8.3 g/dL (13.0-17.5) Hematocrit 26.7 % (39.0-53.0) Mean Corpuscular Volume 80 fL (79-100) Mean Corpuscular Hemoglobin 25 pg (25-35) Mean Corpuscular Hemoglobin Concent 31 g/dL (31-37) Red Cell Distribution Width 17.2 % (11.5-14.5) Platelet Count 260 x10^3/uL (140-400) Neutrophils (%) (Auto) 73 % (31-73) Lymphocytes (%) (Auto) 18 % (24-48) Monocytes (%) (Auto) 6 % (0-9) Eosinophils (%) (Auto) 2 % (0-3) Basophils (%) (Auto) 1 % (0-3) Neutrophils # (Auto) 9.0 x10^3/uL (1.8-7.7) Lymphocytes # (Auto) 2.2 x10^3/uL (1.0-4.8) Monocytes # (Auto) 0.7 x10^3/uL (0.0-1.1) Eosinophils # (Auto) 0.3 x10^3/uL (0.0-0.7) Basophils # (Auto) 0.1 x10^3/uL (0.0-0.2) Sodium Level 140 mmol/L (136-145) Potassium Level 3.7 mmol/L (3.5-5.1) Chloride Level 109 mmol/L (98-107) Carbon Dioxide Level 24 mmol/L (21-32) Anion Gap 7 (6-14) Blood Urea Nitrogen 8 mg/dL (8-26) Creatinine 0.9 mg/dL (0.7-1.3) Estimated GFR (Cockcroft-Gault) 107.2 BUN/Creatinine Ratio 9 (6-20) Glucose Level 115 mg/dL (70-99) Calcium Level 8.2 mg/dL (8.5-10.1) Total Bilirubin 0.9 mg/dL (0.2-1.0) Aspartate Amino Transf (AST/SGOT) 17 U/L (15-37) Alanine Aminotransferase (ALT/SGPT) 20 U/L (16-63) Alkaline Phosphatase 77 U/L (46-116) Total Protein 6.3 g/dL (6.4-8.2) Albumin 2.2 g/dL (3.4-5.0) Albumin/Globulin Ratio 0.5 (1.0-1.7) Laboratory Tests Test 03/21/20 11:25 03/21/20 20:48 03/22/20 03:15 Heparin Anti-Xa Act, Unfractionated 0.12 IU/mL (0.30-0.70) 0.44 IU/mL (0.30-0.70) 0.44 IU/mL (0.30-0.70) Troponin I Quantitative 0.153 ng/mL (0.000-0.055) White Blood Count 12.3 x10^3/uL (4.0-11.0) Red Blood Count 3.35 x10^6/uL (4.30-5.70) Hemoglobin 8.3 g/dL (13.0-17.5) Hematocrit 26.7 % (39.0-53.0) Mean Corpuscular Volume 80 fL (79-100) Mean Corpuscular Hemoglobin 25 pg (25-35) Mean Corpuscular Hemoglobin Concent 31 g/dL (31-37) Red Cell Distribution Width 17.2 % (11.5-14.5) Platelet Count 260 x10^3/uL (140-400) Neutrophils (%) (Auto) 73 % (31-73) Lymphocytes (%) (Auto) 18 % (24-48) Monocytes (%) (Auto) 6 % (0-9) Eosinophils (%) (Auto) 2 % (0-3) Basophils (%) (Auto) 1 % (0-3) Neutrophils # (Auto) 9.0 x10^3/uL (1.8-7.7) Lymphocytes # (Auto) 2.2 x10^3/uL (1.0-4.8) Monocytes # (Auto) 0.7 x10^3/uL (0.0-1.1) Eosinophils # (Auto) 0.3 x10^3/uL (0.0-0.7) Basophils # (Auto) 0.1 x10^3/uL (0.0-0.2) Sodium Level 140 mmol/L (136-145) Potassium Level 3.7 mmol/L (3.5-5.1) Chloride Level 109 mmol/L (98-107) Carbon Dioxide Level 24 mmol/L (21-32) Anion Gap 7 (6-14) Blood Urea Nitrogen 8 mg/dL (8-26) Creatinine 0.9 mg/dL (0.7-1.3) Estimated GFR (Cockcroft-Gault) 107.2 BUN/Creatinine Ratio 9 (6-20) Glucose Level 115 mg/dL (70-99) Calcium Level 8.2 mg/dL (8.5-10.1) Total Bilirubin 0.9 mg/dL (0.2-1.0) Aspartate Amino Transf (AST/SGOT) 17 U/L (15-37) Alanine Aminotransferase (ALT/SGPT) 20 U/L (16-63) Alkaline Phosphatase 77 U/L (46-116) Total Protein 6.3 g/dL (6.4-8.2) Albumin 2.2 g/dL (3.4-5.0) Albumin/Globulin Ratio 0.5 (1.0-1.7) Microbiology 03/21/20 Gram Stain Evaluation - Final, Resulted 03/21/20 Respiratory Culture, Resulted Pending 03/20/20 Blood Culture - Preliminary, Resulted NO GROWTH AFTER 1 DAY Medications Current Medications Norepinephrine Bitartrate 8 mg/ Dextrose 258 ml @ 18.247 mls/ hr CONT PRN IV PER PROTOCOL Last administered on 03/21/20at 09:19; Start 03/20/20 at 04:15 Dopamine HCl/ Dextrose 250 ml @ 17.681 mls/ hr CONT PRN IV SEE I/O RECORD; Start 03/20/20 at 04:30 Heparin Sodium/ Dextrose 250 ml @ 0 mls/hr CONT PRN IV PER PROTOCOL Last administered on 03/21/20at 22:15; Start 03/20/20 at 04:30 Heparin Sodium (Porcine) (Heparin Sodium) 2,400 unit PRN Q6HRS PRN IV FOR UFH LEVEL LESS THAN 0.2 Last administered on 03/21/20at 14:17; Start 03/20/20 at 04:30 Fentanyl Citrate 30 ml @ 0 mls/hr CONT PRN IV SEE PROTOCOL Last administered on 03/22/20at 07:51; Start 03/20/20 at 04:45 Lorazepam (Ativan Inj) 1 mg PRN Q1HR PRN IV SEE COMMENTS; Start 03/20/20 at 04:45 Fentanyl Citrate (Fentanyl 2ml Vial) 25 mcg PRN Q1HR PRN IV SEE COMMENTS; Start 03/20/20 at 04:45 Fentanyl Citrate (Fentanyl 2ml Vial) 50 mcg PRN Q1HR PRN IV SEE COMMENTS; Start 03/20/20 at 04:45 Chlorhexidine Gluconate (Peridex) 15 ml BID MM ; Start 03/20/20 at 09:00; Stop 03/20/20 at 07:24; Status DC Famotidine (Pepcid Vial) 20 mg BID IVP Last administered on 03/20/20at 08:07; Start 03/20/20 at 09:00; Stop 03/20/20 at 12:52; Status DC Morphine Sulfate (Morphine Sulfate) 2 mg PRN Q1HR PRN IV SEE COMMENTS.; Start 03/20/20 at 04:45 Morphine Sulfate (Morphine Sulfate) 4 mg PRN Q1HR PRN IV SEE COMMENTS.; Start 03/20/20 at 04:45 Midazolam HCl 100 ml @ 0 mls/hr CONT PRN IV SEE PROTOCOL Last administered on 03/22/20at 06:15; Start 03/20/20 at 04:45 Docusate Sodium (Colace Solution) 100 mg BID NG Last administered on 03/21/20at 21:03; Start 03/20/20 at 09:00 Sodium Chloride 1,000 ml @ 75 mls/hr [id number] IV Last administered on 03/22/20at 05:29; Start 03/20/20 at 06:30 Acetaminophen (Tylenol) 650 mg PRN Q6HRS PRN PEG MILD PAIN / TEMP > 100.3'F Last administered on 03/21/20at 16:33; Start 03/20/20 at 09:00 Piperacillin Sod/ Tazobactam Sod (Zosyn Per Pharmacy) 1 each PRN DAILY PRN MC SEE COMMENTS; Start 03/20/20 at 09:30 Piperacillin Sod/ Tazobactam Sod 3.375 gm/Sodium Chloride 50 ml @ 100 mls/hr Q6HRS IV Last administered on 03/22/20at 05:40; Start 03/20/20 at 10:00 Magnesium Sulfate 50 ml @ 25 mls/hr 1X ONCE IV Last administered on 03/20/20at 10:21; Start 03/20/20 at 09:45; Stop 03/20/20 at 11:44; Status DC Clopidogrel Bisulfate (Plavix) 75 mg DAILYWBKFT PO Last administered on 03/21/20at 07:38; Start 03/20/20 at 12:00 Atorvastatin Calcium (Lipitor) 80 mg QHS PO Last administered on 03/21/20at 21:03; Start 03/20/20 at 21:00 Ondansetron HCl (Zofran) 4 mg PRN Q6HRS PRN IVP NAUSEA/VOMITING; Start 03/20/20 at 10:30 Famotidine (Pepcid Vial) 20 mg BID IVP ; Start 03/20/20 at 11:00; Stop 0 at 12:35; Status DC Info (Icu Electrolyte Protocol) 1 ea DAILY MC ; Start 03/21/20 at 09:00 Sodium Chloride (Normal Saline Flush) 3 ml QSHIFT PRN IV AFTER MEDS AND BLOOD DRAWS; Start 03/20/20 at 10:30 Pantoprazole Sodium (PROTONIX VIAL for IV PUSH) 40 mg DAILYAC IVP Last administered on 03/21/20at 07:38; Start 03/20/20 at 12:30 Potassium Bicarbonate (Potassium Effervescent Tablet) 40 meq 1X ONCE PEG Last administered on 03/20/20at 14:47; Start 03/20/20 at 14:00; Stop 03/20/20 at 14:20; Status DC Non-Formulary Medication (ABACAVIR/ DOLUTEGRAVIR/ LAMIVUDINE (Triumeq) tablet) 1 ea DAILY PO Last administered on 03/21/20at 07:38; Start 03/20/20 at 17:00 Vancomycin HCl (Vancomycin Oral Solution) 125 mg BID PO Last administered on 03/21/20at 21:02; Start 03/20/20 at 21:30 Linezolid/Dextrose 300 ml @ 300 mls/hr Q12HR IV Last administered on 03/21/20at 21:03; Start 03/21/20 at 09:00 Active Scripts Active Furosemide 40 Mg Tablet 40 Mg PO DAILY 90 Days Tramadol Hcl 50 Mg Tablet 50 Mg PO PRN Q6HRS PRN 6 Days Metoprolol Succinate ( Xl ) (Metoprolol Succinate) 25 Mg Tab.er.24h 12.5 Mg PO DAILY 90 Days Clopidogrel (Clopidogrel Bisulfate) 75 Mg Tablet 75 Mg PO DAILYWBKFT 90 Days Lisinopril 10 Mg Tablet 1 Tab PO DAILY 90 Days Atorvastatin Calcium 80 Mg Tablet 80 Mg PO QHS 90 Days Reported Klor-Con M20 (Potassium Chloride) 20 Meq Tab.er.prt 20 Meq PO TID Pantoprazole Sodium (Pantoprazole Sodium) 40 Mg Tablet.dr 40 Mg PO BID Duoneb 0.5-3(2.5) Mg/3 Ml (Albuterol/Ipratropium) 3 Ml Ampul.neb 3 Ml NEB PRN Q6HRS PRN Acetaminophen 325 Mg Tablet 1 Tab PO PRN Q6HRS PRN 24 Days Triumeq Tablet (Abacavir/Dolutegravir/Lamivudi) 1 Each Tablet 1 Tab PO DAILY 30 Days Gabapentin (Gabapentin) 300 Mg Capsule 100 Mg PO TID Children's Aspirin (Aspirin) 81 Mg Tab.chew 1 Tab PO DAILY 30 Days Vitals/I & O Vital Sign - Last 24 Hours 03/21/20 03/21/20 03/21/20 03/21/20 08:15 09:00 10:00 11:00 Pulse 109 109 93 Resp 24 22 24 B/P (MAP) 112/70 (84) 109/68 (82) 100/63 (75) Pulse Ox 100 98 99 99 O2 Delivery Ventilator Ventilator Ventilator Ventilator 03/21/20 03/21/20 03/21/20 03/21/20 11:15 11:56 12:00 13:00 Temp 100.2 100.2 Pulse 93 92 Resp 24 B/P (MAP) 85/57 (66) 99/58 (72) Pulse Ox 100 99 99 O2 Delivery Ventilator Mechanical Ventilator Ventilator Ventilator 03/21/20 03/21/20 03/21/20 03/21/20 14:00 15:00 15:13 15:19 Pulse 90 114 Resp 24 24 B/P (MAP) 89/64 (72) 105/70 (82) Pulse Ox 99 99 100 92 O2 Delivery Ventilator Ventilator Ventilator Nasal Cannula O2 Flow Rate 5.0 03/21/20 03/21/20 03/21/20 03/21/20 16:00 16:00 17:00 18:00 Temp 102.0 102.0 Pulse 112 110 102 Resp 24 26 26 B/P (MAP) 109/64 (79) 108/60 (76) 97/60 (72) Pulse Ox 99 100 100 O2 Delivery Ventilator Mechanical Ventilator Ventilator Ventilator 03/21/20 03/21/20 03/21/20 03/21/20 19:00 19:30 20:00 20:15 Temp 98.5 98.5 Pulse 80 76 Resp 22 24 B/P (MAP) 90/55 (67) 104/69 (81) 80/54 (63) Pulse Ox 100 100 O2 Delivery Ventilator Mechanical Ventilator Ventilator 03/21/20 03/21/20 03/21/20 03/21/20 20:30 20:34 20:40 21:00 Pulse 71 Resp 20 B/P (MAP) 82/52 (62) 96/67 (77) Pulse Ox 100 100 O2 Delivery Ventilator Ventilator Ventilator 03/21/20 03/21/20 03/21/20 03/21/20 21:12 22:00 23:00 23:30 Pulse 76 79 Resp 20 20 B/P (MAP) 102/66 (78) 119/86 (97) Pulse Ox 100 100 O2 Delivery Ventilator Ventilator Ventilator Mechanical Ventilator 03/22/20 03/22/20 03/22/20 03/22/20 00:00 00:18 01:00 01:45 Temp 98.6 98.6 Pulse 82 75 Resp 20 20 B/P (MAP) 119/74 (89) 97/61 (73) 116/71 (86) Pulse Ox 100 100 100 O2 Delivery Ventilator Ventilator Ventilator 03/22/20 03/22/20 03/22/20 03/22/20 02:00 03:00 03:50 04:00 Temp 98.6 98.6 Pulse 73 74 73 Resp 20 20 20 B/P (MAP) 112/77 (89) 112/67 (82) 101/64 (76) Pulse Ox 100 100 100 O2 Delivery Ventilator Ventilator Mechanical Ventilator Ventilator 03/22/20 03/22/20 03/22/20 03/22/20 04:34 05:00 06:00 07:51 Pulse 73 71 Resp 20 20 B/P (MAP) 106/67 (80) 110/70 (83) Pulse Ox 100 100 100 100 O2 Delivery Ventilator Ventilator Ventilator O2 Flow Rate 5.0 Intake and Output 03/21/20 03/21/20 03/22/20 15:00 23:00 07:00 Intake Total 350 ml 1638 ml 1893 ml Output Total 1125 ml 725 ml 675 ml Balance -775 ml 913 ml 1218 ml Justicifation of Admission Dx: Justifications for Admission: Justification of Admission Dx: Yes GLADYS FAUSTIN MD Mar 22, 2020 08:03
[2020-03-22 08:18] LABS: BASE EXCESS ABG -3 mmol/L (-3-3); HCO3 ABG 21 mmol/L (21-28); PCO2 ABG 33 mmHg (35-46); PO2 ABG 119 mmHg (75-108); SAT O2 ABG 98 % (92-99)
[2020-03-22 08:49] LABS: FIO2 ABG 50%+5
[2020-03-22] MEDS: ABACAVIR PO SCH (08:52)
[2020-03-22] MEDS: PANTOPRAZOLE IV PUSH 40 MG VIAL. IVP SCH (08:52)
[2020-03-22] MEDS: DOCUSATE 100 MG/10 ML SOLUTION. NG SCH ×2 (08:52→21:03)
[2020-03-22] MEDS: CLOPIDOGREL BISULFATE 75 MG TABLET PO SCH (08:52)
[2020-03-22] MEDS: LAMIVUDINE PO SCH (08:52)
[2020-03-22] MEDS: DOLUTEGRAVIR PO SCH (08:52)
[2020-03-22] MEDS: ELECTROLYTE (ICU) PROTOCOL. MC SCH (09:00)
--- NOTE | 2020-03-22 09:36 | PDOC ---
Date of Service: DATE: 03/22/20 TIME: Objective: Objective: Reviewed chart. Vital Signs: Vital Signs Date Time Temp Pulse Resp B/P (MAP) Pulse Ox O2 Delivery O2 Flow Rate FiO2 03/22/20 07:51 100 5.0 03/22/20 07:45 Ventilator 03/22/20 06:00 71 20 110/70 (83) 03/22/20 04:00 98.6 98.6 Labs: Laboratory Tests Test 03/21/20 11:25 03/21/20 20:48 03/22/20 03:15 03/22/20 08:00 Heparin Anti-Xa Act, Unfractionated 0.12 IU/mL 0.44 IU/mL 0.44 IU/mL Troponin I Quantitative 0.153 ng/mL White Blood Count 12.3 x10^3/uL Red Blood Count 3.35 x10^6/uL Hemoglobin 8.3 g/dL Hematocrit 26.7 % Mean Corpuscular Volume 80 fL Mean Corpuscular Hemoglobin 25 pg Mean Corpuscular Hemoglobin Concent 31 g/dL Red Cell Distribution Width 17.2 % Platelet Count 260 x10^3/uL Neutrophils (%) (Auto) 73 % Lymphocytes (%) (Auto) 18 % Monocytes (%) (Auto) 6 % Eosinophils (%) (Auto) 2 % Basophils (%) (Auto) 1 % Neutrophils # (Auto) 9.0 x10^3/uL Lymphocytes # (Auto) 2.2 x10^3/uL Monocytes # (Auto) 0.7 x10^3/uL Eosinophils # (Auto) 0.3 x10^3/uL Basophils # (Auto) 0.1 x10^3/uL Sodium Level 140 mmol/L Potassium Level 3.7 mmol/L Chloride Level 109 mmol/L Carbon Dioxide Level 24 mmol/L Anion Gap 7 Blood Urea Nitrogen 8 mg/dL Creatinine 0.9 mg/dL Estimated GFR (Cockcroft-Gault) 107.2 BUN/Creatinine Ratio 9 Glucose Level 115 mg/dL Calcium Level 8.2 mg/dL Total Bilirubin 0.9 mg/dL Aspartate Amino Transf (AST/SGOT) 17 U/L Alanine Aminotransferase (ALT/SGPT) 20 U/L Alkaline Phosphatase 77 U/L Total Protein 6.3 g/dL Albumin 2.2 g/dL Albumin/Globulin Ratio 0.5 O2 Saturation 98 % Arterial Blood pH 7.42 Arterial Blood pCO2 at Patient Temp 33 mmHg Arterial Blood pO2 at Patient Temp 119 mmHg Arterial Blood HCO3 21 mmol/L Arterial Blood Base Excess -3 mmol/L FiO2 50%+5 PE: GEN: intubated LUNGS: vent/clear HEART: RRR ABD: quiet, soft, round - OG container about half full with frothy green-brown material, did note some thin reddish brownish liquid in tube NEURO/PSYCH: sedated A/P: S/p arrest CAD, HIV, +cocaine Anemia, h/o GI bleeding COVID negative -- Continue IV PPI. Justicifation of Admission Dx: Justifications for Admission: Justification of Admission Dx: Yes YNES CLEARY Mar 22, 2020 09:36
--- NOTE | 2020-03-22 10:20 | PDOC ---
CARDIO Progress Notes Date and Time Date of Service 03/22/2020 Time of Evaluation 0920 Subjective Subjective: Other (sedated, intubated ) Vitals Vitals Vital Signs Date Time Temp Pulse Resp B/P (MAP) Pulse Ox O2 Delivery O2 Flow Rate FiO2 03/22/20 07:51 100 5.0 03/22/20 07:45 Ventilator 03/22/20 06:00 71 20 110/70 (83) 03/22/20 04:00 98.6 98.6 Weight Weight [ ] Input and Output Intake and Output Intake and Output 03/22/20 07:00 Intake Total 3881 ml Output Total 2525 ml Balance 1356 ml Intake IV Total 3881 ml Output Urine Total 2125 ml Gastric Drainage Total 400 ml Laboratory Labs Laboratory Tests Test 03/21/20 11:25 03/21/20 20:48 03/22/20 03:15 03/22/20 08:00 Heparin Anti-Xa Act, Unfractionated 0.12 IU/mL (0.30-0.70) 0.44 IU/mL (0.30-0.70) 0.44 IU/mL (0.30-0.70) Troponin I Quantitative 0.153 ng/mL (0.000-0.055) White Blood Count 12.3 x10^3/uL (4.0-11.0) Red Blood Count 3.35 x10^6/uL (4.30-5.70) Hemoglobin 8.3 g/dL (13.0-17.5) Hematocrit 26.7 % (39.0-53.0) Mean Corpuscular Volume 80 fL (79-100) Mean Corpuscular Hemoglobin 25 pg (25-35) Mean Corpuscular Hemoglobin Concent 31 g/dL (31-37) Red Cell Distribution Width 17.2 % (11.5-14.5) Platelet Count 260 x10^3/uL (140-400) Neutrophils (%) (Auto) 73 % (31-73) Lymphocytes (%) (Auto) 18 % (24-48) Monocytes (%) (Auto) 6 % (0-9) Eosinophils (%) (Auto) 2 % (0-3) Basophils (%) (Auto) 1 % (0-3) Neutrophils # (Auto) 9.0 x10^3/uL (1.8-7.7) Lymphocytes # (Auto) 2.2 x10^3/uL (1.0-4.8) Monocytes # (Auto) 0.7 x10^3/uL (0.0-1.1) Eosinophils # (Auto) 0.3 x10^3/uL (0.0-0.7) Basophils # (Auto) 0.1 x10^3/uL (0.0-0.2) Sodium Level 140 mmol/L (136-145) Potassium Level 3.7 mmol/L (3.5-5.1) Chloride Level 109 mmol/L (98-107) Carbon Dioxide Level 24 mmol/L (21-32) Anion Gap 7 (6-14) Blood Urea Nitrogen 8 mg/dL (8-26) Creatinine 0.9 mg/dL (0.7-1.3) Estimated GFR (Cockcroft-Gault) 107.2 BUN/Creatinine Ratio 9 (6-20) Glucose Level 115 mg/dL (70-99) Calcium Level 8.2 mg/dL (8.5-10.1) Total Bilirubin 0.9 mg/dL (0.2-1.0) Aspartate Amino Transf (AST/SGOT) 17 U/L (15-37) Alanine Aminotransferase (ALT/SGPT) 20 U/L (16-63) Alkaline Phosphatase 77 U/L (46-116) Total Protein 6.3 g/dL (6.4-8.2) Albumin 2.2 g/dL (3.4-5.0) Albumin/Globulin Ratio 0.5 (1.0-1.7) O2 Saturation 98 % (92-99) Arterial Blood pH 7.42 (7.35-7.45) Arterial Blood pCO2 at Patient Temp 33 mmHg (35-46) Arterial Blood pO2 at Patient Temp 119 mmHg (75-108) Arterial Blood HCO3 21 mmol/L (21-28) Arterial Blood Base Excess -3 mmol/L (-3-3) FiO2 50%+5 Microbiology Micro Microbiology 03/21/20 Gram Stain Evaluation - Final, Resulted 03/21/20 Respiratory Culture, Resulted Pending 03/20/20 Blood Culture - Preliminary, Resulted NO GROWTH AFTER 1 DAY Physical Exam HEENT: Neck Supple W Full Motion Chest: Symmetric LUNGS: Other (mechanical vent ) Heart: RRR Abdomen: Other (non-distended ) Extremities: No Edema Neurology: other (sedated ) Assessment Assessment 1. OOH, witness cardiac arrest; Rhythm upon arrival unknown, although shockable as he was defibrillated x1 with ROSC. . remains intubated/vent 2. Mild troponin elevation; trop highest 0.3 s/p resuscitation. EKG with LBBB 3. Leukocytosis, fevers. ? sepsis Covid negative. 4. H/o Vfib OOH arrest; probable ischemic in nature, antiarrhythmics discontinued in past due to QTc prolongation of 600. EKG at [facility] with QTc 507, 528. 5. Acute respiratory failure secondary to above; s/p intubation 6. CAD s/p PCI/BMS to the LCx 12/11/19. Treated with ASA,Brilinta initially, which was held due to recurrent GIB requiring transfusions.Due to recent PCI/BMS, Plavix was resumed while at [facility]. ASA was discontinued.No further bl eeding concerns. 7. Chronic systolic CHF; appears compensated 8. ICM; LVEF 15-20%. 9. SSS s/p leadless PPM implantation ([employer]tronic Micra). Device does not store history rhythm data. 10. Hypertension; low end. requiring pressor support 11. Hypokalemia, hypomagnesemia 12. H/o DAIJA requiringHD; renal function improvedand HD catheter removed 13. 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 HIV 15. Substance abuse; UDS + cocaine at [facility] 16. Noncompliance; s/o reports he has not been taken meds routinely 17. Coffee-ground gastric contents: noted via OG Recommendations DC. heparin. No ASA. May hold plavix if persistent coffee ground and Hgb trends down significnatly. Discussed with RN Continue PPI Lasix therapy. K replacement. Maintain K and Mg at 4.0 and 2.0 respectively. Statin therapy Presor support as warranted. May hold BP meds for now. If adequate and off levophed then will start on low dose metoprolol. Wean off pressor support as able Unable to start antiarrhythmic therapy due to prolonged QT. 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
[2020-03-22] MEDS ORDERED: POTASSIUM CHLORIDE 20MEQ 100 ML IV ONE (10:30)
--- NOTE | 2020-03-22 10:39 | PDOC ---
PULMONARY PROGRESS NOTES DATE: 03/22/20 TIME: 10:36 Subjective Patient remains on vent support assist-control mode 50% and a PEEP of 5 On a heparin drip per cardiology on Levophed No other concerns from nursing at this time Vitals Vital Signs Date Time Temp Pulse Resp B/P (MAP) Pulse Ox O2 Delivery O2 Flow Rate FiO2 03/22/20 07:51 100 5.0 03/22/20 07:45 Ventilator 03/22/20 06:00 71 20 110/70 (83) 03/22/20 04:00 98.6 98.6 Comments Intubated/sedated Lungs: Clear Extremities: No Edema Labs Laboratory Tests Test 03/20/20 13:10 03/20/20 22:10 03/21/20 04:53 03/21/20 08:00 White Blood Count 19.5 x10^3/uL (4.0-11.0) 17.2 x10^3/uL (4.0-11.0) Red Blood Count 3.76 x10^6/uL (4.30-5.70) 3.65 x10^6/uL (4.30-5.70) Hemoglobin 9.3 g/dL (13.0-17.5) 9.1 g/dL (13.0-17.5) Hematocrit 30.1 % (39.0-53.0) 29.0 % (39.0-53.0) Mean Corpuscular Volume 80 fL (79-100) 80 fL (79-100) Mean Corpuscular Hemoglobin 25 pg (25-35) 25 pg (25-35) Mean Corpuscular Hemoglobin Concent 31 g/dL (31-37) 31 g/dL (31-37) Red Cell Distribution Width 17.2 % (11.5-14.5) 17.4 % (11.5-14.5) Platelet Count 334 x10^3/uL (140-400) 307 x10^3/uL (140-400) Neutrophils (%) (Auto) 72 % (31-73) 78 % (31-73) Lymphocytes (%) (Auto) 24 % (24-48) 16 % (24-48) Monocytes (%) (Auto) 4 % (0-9) 4 % (0-9) Eosinophils (%) (Auto) 0 % (0-3) 1 % (0-3) Basophils (%) (Auto) 0 % (0-3) 1 % (0-3) Neutrophils # (Auto) 14.0 x10^3/uL (1.8-7.7) 13.4 x10^3/uL (1.8-7.7) Lymphocytes # (Auto) 4.6 x10^3/uL (1.0-4.8) 2.7 x10^3/uL (1.0-4.8) Monocytes # (Auto) 0.7 x10^3/uL (0.0-1.1) 0.7 x10^3/uL (0.0-1.1) Eosinophils # (Auto) 0.0 x10^3/uL (0.0-0.7) 0.2 x10^3/uL (0.0-0.7) Basophils # (Auto) 0.1 x10^3/uL (0.0-0.2) 0.1 x10^3/uL (0.0-0.2) Segmented Neutrophils % 64 % (35-66) Band Neutrophils % 13 % (0-9) Lymphocytes % 22 % (24-48) Monocytes % 1 % (0-10) Platelet Estimate Adequate (ADEQUATE) Hypochromasia Slight Poikilocytosis Slight Anisocytosis Slight Sodium Level 142 mmol/L (136-145) 142 mmol/L (136-145) Potassium Level 3.4 mmol/L (3.5-5.1) 3.6 mmol/L (3.5-5.1) Chloride Level 108 mmol/L (98-107) 108 mmol/L (98-107) Carbon Dioxide Level 23 mmol/L (21-32) 24 mmol/L (21-32) Anion Gap 11 (6-14) 10 (6-14) Blood Urea Nitrogen 9 mg/dL (8-26) 8 mg/dL (8-26) Creatinine 1.1 mg/dL (0.7-1.3) 0.8 mg/dL (0.7-1.3) Estimated GFR (Cockcroft-Gault) 85.1 122.8 BUN/Creatinine Ratio 8 (6-20) 10 (6-20) Glucose Level 150 mg/dL (70-99) 118 mg/dL (70-99) Calcium Level 7.6 mg/dL (8.5-10.1) 7.7 mg/dL (8.5-10.1) Magnesium Level 2.3 mg/dL (1.8-2.4) Total Bilirubin 0.9 mg/dL (0.2-1.0) 1.2 mg/dL (0.2-1.0) Aspartate Amino Transf (AST/SGOT) 36 U/L (15-37) 27 U/L (15-37) Alanine Aminotransferase (ALT/SGPT) 23 U/L (16-63) 22 U/L (16-63) Alkaline Phosphatase 82 U/L (46-116) 80 U/L (46-116) Lactate Dehydrogenase 428 U/L (85-227) Troponin I Quantitative 0.398 ng/mL (0.000-0.055) PG-Vgh-Z-Type Natriuretic Peptide 3415 pg/mL (0-124) Total Protein 6.5 g/dL (6.4-8.2) 6.4 g/dL (6.4-8.2) Albumin 2.5 g/dL (3.4-5.0) 2.4 g/dL (3.4-5.0) Albumin/Globulin Ratio 0.6 (1.0-1.7) 0.6 (1.0-1.7) Triglycerides Level 50 mg/dL (0-150) Cholesterol Level 84 mg/dL (0-200) LDL Cholesterol, Calculated 42 mg/dL (0-100) VLDL Cholesterol, Calculated 10 mg/dL (0-40) Non-HDL Cholesterol Calculated 52 mg/dL (0-129) HDL Cholesterol 32 mg/dL (40-60) Cholesterol/HDL Ratio 2.6 Thyroid Stimulating Hormone (TSH) 0.564 uIU/mL (0.358-3.74) Heparin Anti-Xa Act, Unfractionated < 0.10 IU/mL (0.30-0.70) < 0.10 IU/mL (0.30-0.70) Prothrombin Time 16.5 SEC (11.7-14.0) Prothromb Time International Ratio 1.4 (0.8-1.1) Activated Partial Thromboplast Time 66 SEC (24-38) O2 Saturation 97 % (92-99) Arterial Blood pH 7.41 (7.35-7.45) Arterial Blood pH (Temp corrected) 7.39 Arterial Blood pCO2 at Patient Temp 34 mmHg (35-46) Arterial Blood pCO2 (Temp correct) 36 mmHg Arterial Blood pO2 at Patient Temp 88 mmHg (75-108) Arterial Blood pO2 (Temp corrected) 96 mmHg Arterial Blood HCO3 21 mmol/L (21-28) Arterial Blood Base Excess -3 mmol/L (-3-3) FiO2 70/vent Test 03/21/20 11:25 03/21/20 20:48 03/22/20 03:15 03/22/20 08:00 Heparin Anti-Xa Act, Unfractionated 0.12 IU/mL (0.30-0.70) 0.44 IU/mL (0.30-0.70) 0.44 IU/mL (0.30-0.70) Troponin I Quantitative 0.153 ng/mL (0.000-0.055) White Blood Count 12.3 x10^3/uL (4.0-11.0) Red Blood Count 3.35 x10^6/uL (4.30-5.70) Hemoglobin 8.3 g/dL (13.0-17.5) Hematocrit 26.7 % (39.0-53.0) Mean Corpuscular Volume 80 fL (79-100) Mean Corpuscular Hemoglobin 25 pg (25-35) Mean Corpuscular Hemoglobin Concent 31 g/dL (31-37) Red Cell Distribution Width 17.2 % (11.5-14.5) Platelet Count 260 x10^3/uL (140-400) Neutrophils (%) (Auto) 73 % (31-73) Lymphocytes (%) (Auto) 18 % (24-48) Monocytes (%) (Auto) 6 % (0-9) Eosinophils (%) (Auto) 2 % (0-3) Basophils (%) (Auto) 1 % (0-3) Neutrophils # (Auto) 9.0 x10^3/uL (1.8-7.7) Lymphocytes # (Auto) 2.2 x10^3/uL (1.0-4.8) Monocytes # (Auto) 0.7 x10^3/uL (0.0-1.1) Eosinophils # (Auto) 0.3 x10^3/uL (0.0-0.7) Basophils # (Auto) 0.1 x10^3/uL (0.0-0.2) Sodium Level 140 mmol/L (136-145) Potassium Level 3.7 mmol/L (3.5-5.1) Chloride Level 109 mmol/L (98-107) Carbon Dioxide Level 24 mmol/L (21-32) Anion Gap 7 (6-14) Blood Urea Nitrogen 8 mg/dL (8-26) Creatinine 0.9 mg/dL (0.7-1.3) Estimated GFR (Cockcroft-Gault) 107.2 BUN/Creatinine Ratio 9 (6-20) Glucose Level 115 mg/dL (70-99) Calcium Level 8.2 mg/dL (8.5-10.1) Total Bilirubin 0.9 mg/dL (0.2-1.0) Aspartate Amino Transf (AST/SGOT) 17 U/L (15-37) Alanine Aminotransferase (ALT/SGPT) 20 U/L (16-63) Alkaline Phosphatase 77 U/L (46-116) Total Protein 6.3 g/dL (6.4-8.2) Albumin 2.2 g/dL (3.4-5.0) Albumin/Globulin Ratio 0.5 (1.0-1.7) O2 Saturation 98 % (92-99) Arterial Blood pH 7.42 (7.35-7.45) Arterial Blood pCO2 at Patient Temp 33 mmHg (35-46) Arterial Blood pO2 at Patient Temp 119 mmHg (75-108) Arterial Blood HCO3 21 mmol/L (21-28) Arterial Blood Base Excess -3 mmol/L (-3-3) FiO2 50%+5 Laboratory Tests Test 03/21/20 11:25 03/21/20 20:48 03/22/20 03:15 03/22/20 08:00 Heparin Anti-Xa Act, Unfractionated 0.12 IU/mL (0.30-0.70) 0.44 IU/mL (0.30-0.70) 0.44 IU/mL (0.30-0.70) Troponin I Quantitative 0.153 ng/mL (0.000-0.055) White Blood Count 12.3 x10^3/uL (4.0-11.0) Red Blood Count 3.35 x10^6/uL (4.30-5.70) Hemoglobin 8.3 g/dL (13.0-17.5) Hematocrit 26.7 % (39.0-53.0) Mean Corpuscular Volume 80 fL (79-100) Mean Corpuscular Hemoglobin 25 pg (25-35) Mean Corpuscular Hemoglobin Concent 31 g/dL (31-37) Red Cell Distribution Width 17.2 % (11.5-14.5) Platelet Count 260 x10^3/uL (140-400) Neutrophils (%) (Auto) 73 % (31-73) Lymphocytes (%) (Auto) 18 % (24-48) Monocytes (%) (Auto) 6 % (0-9) Eosinophils (%) (Auto) 2 % (0-3) Basophils (%) (Auto) 1 % (0-3) Neutrophils # (Auto) 9.0 x10^3/uL (1.8-7.7) Lymphocytes # (Auto) 2.2 x10^3/uL (1.0-4.8) Monocytes # (Auto) 0.7 x10^3/uL (0.0-1.1) Eosinophils # (Auto) 0.3 x10^3/uL (0.0-0.7) Basophils # (Auto) 0.1 x10^3/uL (0.0-0.2) Sodium Level 140 mmol/L (136-145) Potassium Level 3.7 mmol/L (3.5-5.1) Chloride Level 109 mmol/L (98-107) Carbon Dioxide Level 24 mmol/L (21-32) Anion Gap 7 (6-14) Blood Urea Nitrogen 8 mg/dL (8-26) Creatinine 0.9 mg/dL (0.7-1.3) Estimated GFR (Cockcroft-Gault) 107.2 BUN/Creatinine Ratio 9 (6-20) Glucose Level 115 mg/dL (70-99) Calcium Level 8.2 mg/dL (8.5-10.1) Total Bilirubin 0.9 mg/dL (0.2-1.0) Aspartate Amino Transf (AST/SGOT) 17 U/L (15-37) Alanine Aminotransferase (ALT/SGPT) 20 U/L (16-63) Alkaline Phosphatase 77 U/L (46-116) Total Protein 6.3 g/dL (6.4-8.2) Albumin 2.2 g/dL (3.4-5.0) Albumin/Globulin Ratio 0.5 (1.0-1.7) O2 Saturation 98 % (92-99) Arterial Blood pH 7.42 (7.35-7.45) Arterial Blood pCO2 at Patient Temp 33 mmHg (35-46) Arterial Blood pO2 at Patient Temp 119 mmHg (75-108) Arterial Blood HCO3 21 mmol/L (21-28) Arterial Blood Base Excess -3 mmol/L (-3-3) FiO2 50%+5 Medications Active Scripts Medications Dose Route/Sig Max Daily Dose Days Date Category Furosemide 40 Mg Tablet 40 Mg PO DAILY 02/02/20 Rx Tramadol Hcl 50 Mg Tablet 50 Mg PO PRN Q6HRS PRN 6 02/02/20 Rx Metoprolol Succinate ( Xl ) (Metoprolol Succinate) 25 Mg Tab.er.24h 12.5 Mg PO DAILY 02/02/20 Rx Clopidogrel (Clopidogrel Bisulfate) 75 Mg Tablet 75 Mg PO DAILYWBKFT 02/02/20 Rx Lisinopril 10 Mg Tablet 1 Tab PO DAILY 02/02/20 Rx Atorvastatin Calcium 80 Mg Tablet 80 Mg PO QHS 02/02/20 Rx Klor-Con M20 (Potassium Chloride) 20 Meq Tab.er.prt 20 Meq PO TID 01/31/20 Reported Pantoprazole Sodium (Pantoprazole Sodium) 40 Mg Tablet.dr 40 Mg PO BID 01/31/20 Reported Duoneb 0.5-3(2.5) Mg/3 Ml (Albuterol/Ipratropium) 3 Ml Ampul.neb 3 Ml NEB PRN Q6HRS PRN 01/31/20 Reported Acetaminophen 325 Mg Tablet 1 Tab PO PRN Q6HRS PRN 24 01/31/20 Reported Triumeq Tablet (Abacavir/Dolutegravir/Lamivudi) 1 Each Tablet 1 Tab PO DAILY 30 01/31/20 Reported Gabapentin (Gabapentin) 300 Mg Capsule 100 Mg PO TID 01/31/20 Reported Children's Aspirin (Aspirin) 81 Mg Tab.chew 1 Tab PO DAILY 30 01/31/20 Reported Comments CXR IMPRESSION: Aeration of the lungs appears similar to the prior examination. Support lines and tubes are in similar position. Impression . IMPRESSION: 1. Acute hypoxemic respiratory failure secondary to bye-sz-izxtdymx cardiopulmonary arrest. 2. History of ventricular fibrillation with previous jcm-km-mqncsxrm cardiac arrest. 3. History of coronary artery disease, status post percutaneous coronary intervention to the circumflex. 4. History of gastrointestinal bleed. 5. Chronic systolic heart failure. 6. Ischemic cardiomyopathy, ejection fraction 20-25%. 7. Status post pacemaker implantation. 8. Hypertension. 9. Hypokalemia. 10. Previous kidney injury requiring hemodialysis. 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 12. Human immunodeficiency virus. 13. Polysubstance use. Plan . Continue current ventilatory support FiO2 50% and a PEEP of 5 Follow chest x-ray as needed/ABG make changes as indicated, reduce Fi02 to 40% plan to start pressure support trial in the next 48 hours Continue vasopressors as needed to keep MAP greater than 65-- on levo Continue empiric antibiotics per infectious disease, Continue heparin drip per cardiology recommendations follow other cardiology recommendations Tube feeding on hold per GI, concern for ileus follow other GI recommendations DVT/GI prophylaxis Discussed with RN and RT Critical care time [id number] DAMIÁN HASTINGS MD Mar 22, 2020 10:39
--- NOTE | 2020-03-22 11:01 | EKG ---
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
--- NOTE | 2020-03-22 11:13 | PDOC ---
Infectious Disease Note Subjective: Subjective Patient intubated/sedated T-max 102 Vital Signs: Vital Signs Vital Signs Date Time Temp Pulse Resp B/P (MAP) Pulse Ox O2 Delivery O2 Flow Rate FiO2 03/22/20 07:51 100 5.0 03/22/20 07:45 Ventilator 03/22/20 06:00 71 20 110/70 (83) 03/22/20 04:00 98.6 98.6 Physical Exam: PHYSICAL EXAM GENERAL: Intubated, sedated. HEENT: Conjunctival suffusion. Pupils equal, reactive. ETT OGT present. NECK: Supple. LUNGS: Clear anteriorly. HEART: S1, S2, tachycardia. ABDOMEN: Obese, mildly distended. Bowel sounds present. EXTREMITIES: No edema or cyanosis. DERMATOLOGIC: Warm and dry. No generalized rash. NEUROLOGIC: Unable to assess. Medications: Inpatient Meds: Current Medications Medications (Trade) Dose Ordered Sig/Guy Start Time Stop Time Status Last Admin Dose Admin Acetaminophen (Tylenol) 650 mg PRN Q6HRS PRN 03/20/20 09:00 03/21/20 16:33 650 MG Atorvastatin Calcium (Lipitor) 80 mg QHS 03/20/20 21:00 03/21/20 21:03 80 MG Chlorhexidine Gluconate (Peridex) 15 ml BID 03/20/20 09:00 03/20/20 07:24 DC Clopidogrel Bisulfate (Plavix) 75 mg DAILYWBKFT 03/20/20 12:00 03/22/20 08:52 75 MG Docusate Sodium (Colace Solution) 100 mg BID 03/20/20 09:00 03/22/20 08:52 100 MG Dopamine HCl/ Dextrose 250 ml @ 17.681 mls/ hr CONT PRN 03/20/20 04:30 Famotidine (Pepcid Vial) 20 mg BID 03/20/20 11:00 03/20/20 12:35 DC Fentanyl Citrate (Fentanyl 2ml Vial) 50 mcg PRN Q1HR PRN 03/20/20 04:45 Furosemide (Lasix) 40 mg DAILY 03/22/20 11:00 Heparin Sodium (Porcine) (Heparin Sodium) 2,400 unit PRN Q6HRS PRN 03/20/20 04:30 03/22/20 10:15 DC 03/21/20 14:17 2,400 UNIT Heparin Sodium/ Dextrose 250 ml @ 0 mls/hr CONT PRN 03/20/20 04:30 03/22/20 10:15 DC 03/21/20 22:15 19.8 MLS/HR Info (Icu Electrolyte Protocol) 1 ea DAILY 03/21/20 09:00 Linezolid/Dextrose 300 ml @ 300 mls/hr Q12HR 03/21/20 09:00 03/21/20 21:03 300 MLS/HR Lorazepam (Ativan Inj) 1 mg PRN Q1HR PRN 03/20/20 04:45 Magnesium Sulfate 50 ml @ 25 mls/hr 1X ONCE 03/20/20 09:45 03/20/20 11:44 DC 03/20/20 10:21 25 MLS/HR Midazolam HCl 100 ml @ 0 mls/hr CONT PRN 03/20/20 04:45 03/22/20 06:15 10 MLS/HR Morphine Sulfate (Morphine Sulfate) 4 mg PRN Q1HR PRN 03/20/20 04:45 Non-Formulary Medication (ABACAVIR/ DOLUTEGRAVIR/ LAMIVUDINE (Triumeq) tablet) 1 ea DAILY 03/20/20 17:00 03/22/20 08:52 1 EA Norepinephrine Bitartrate 8 mg/ Dextrose 258 ml @ 18.247 mls/ hr CONT PRN 03/20/20 04:15 03/21/20 09:19 5.474 MLS/HR Ondansetron HCl (Zofran) 4 mg PRN Q6HRS PRN 03/20/20 10:30 Pantoprazole Sodium (PROTONIX VIAL for IV PUSH) 40 mg DAILYAC 03/20/20 12:30 03/22/20 08:52 40 MG Piperacillin Sod/ Tazobactam Sod (Zosyn Per Pharmacy) 1 each PRN DAILY PRN 03/20/20 09:30 Piperacillin Sod/ Tazobactam Sod 3.375 gm/Sodium Chloride 50 ml @ 100 mls/hr Q6HRS 03/20/20 10:00 03/22/20 05:40 100 MLS/HR Potassium Bicarbonate (Potassium Effervescent Tablet) 40 meq 1X ONCE 03/20/20 14:00 03/20/20 14:20 DC 03/20/20 14:47 40 MEQ Potassium Chloride/Water 100 ml @ 50 mls/hr 1X ONCE 03/22/20 10:30 03/22/20 12:29 Sodium Chloride (Normal Saline Flush) 3 ml QSHIFT PRN 03/20/20 10:30 Vancomycin HCl (Vancomycin Oral Solution) 125 mg BID 03/20/20 21:30 03/21/20 21:02 125 MG Labs: Lab Laboratory Tests Test 03/21/20 11:25 03/21/20 20:48 03/22/20 03:15 03/22/20 08:00 Heparin Anti-Xa Act, Unfractionated 0.12 IU/mL (0.30-0.70) 0.44 IU/mL (0.30-0.70) 0.44 IU/mL (0.30-0.70) Troponin I Quantitative 0.153 ng/mL (0.000-0.055) White Blood Count 12.3 x10^3/uL (4.0-11.0) Red Blood Count 3.35 x10^6/uL (4.30-5.70) Hemoglobin 8.3 g/dL (13.0-17.5) Hematocrit 26.7 % (39.0-53.0) Mean Corpuscular Volume 80 fL (79-100) Mean Corpuscular Hemoglobin 25 pg (25-35) Mean Corpuscular Hemoglobin Concent 31 g/dL (31-37) Red Cell Distribution Width 17.2 % (11.5-14.5) Platelet Count 260 x10^3/uL (140-400) Neutrophils (%) (Auto) 73 % (31-73) Lymphocytes (%) (Auto) 18 % (24-48) Monocytes (%) (Auto) 6 % (0-9) Eosinophils (%) (Auto) 2 % (0-3) Basophils (%) (Auto) 1 % (0-3) Neutrophils # (Auto) 9.0 x10^3/uL (1.8-7.7) Lymphocytes # (Auto) 2.2 x10^3/uL (1.0-4.8) Monocytes # (Auto) 0.7 x10^3/uL (0.0-1.1) Eosinophils # (Auto) 0.3 x10^3/uL (0.0-0.7) Basophils # (Auto) 0.1 x10^3/uL (0.0-0.2) Sodium Level 140 mmol/L (136-145) Potassium Level 3.7 mmol/L (3.5-5.1) Chloride Level 109 mmol/L (98-107) Carbon Dioxide Level 24 mmol/L (21-32) Anion Gap 7 (6-14) Blood Urea Nitrogen 8 mg/dL (8-26) Creatinine 0.9 mg/dL (0.7-1.3) Estimated GFR (Cockcroft-Gault) 107.2 BUN/Creatinine Ratio 9 (6-20) Glucose Level 115 mg/dL (70-99) Calcium Level 8.2 mg/dL (8.5-10.1) Magnesium Level 2.2 mg/dL (1.8-2.4) Total Bilirubin 0.9 mg/dL (0.2-1.0) Aspartate Amino Transf (AST/SGOT) 17 U/L (15-37) Alanine Aminotransferase (ALT/SGPT) 20 U/L (16-63) Alkaline Phosphatase 77 U/L (46-116) Total Protein 6.3 g/dL (6.4-8.2) Albumin 2.2 g/dL (3.4-5.0) Albumin/Globulin Ratio 0.5 (1.0-1.7) O2 Saturation 98 % (92-99) Arterial Blood pH 7.42 (7.35-7.45) Arterial Blood pCO2 at Patient Temp 33 mmHg (35-46) Arterial Blood pO2 at Patient Temp 119 mmHg (75-108) Arterial Blood HCO3 21 mmol/L (21-28) Arterial Blood Base Excess -3 mmol/L (-3-3) FiO2 50%+5 Objective: Assessment: 1. Fever, likely aspiration. UA negative 2. Witnessed cardiac arrest, status post defibrillation. 3. Leukocytosis and lactic acidosis. 4. Human immunodeficiency virus, CD4 was 403 on 01/16 viral load less than 20 on 01/23on [facility]. 5. Acute hypoxic respiratory failure 6. History of ventricular tachycardia, Coronary artery disease, status post PCI. 7. Status post pacemaker for bradycardia 12/27 at [facility]. 8. History of acute kidney injury, on hemodialysis in the past. 9. 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 10. Substance dependence. UDS positive for cocaine at outside hospital. 11. Hypertension/hyperlipidemia 12. Hypokalemia/hypomagnesemia. 13. H/O Chronic systolic congestive heart failure. 14. History of rectal abscess. 15. History of Necrotizing Pneumonia with Klebsiella at [facility] November 2019 Plan: Plan of Care Continue Zosyn,Zyvox Continue p.o. vancomycin for prophylaxis with history of recurrent C. difficile Continue Triumeq Follow up labs and cultures. Critically ill. Discussed with nursing. MILLY NICOLE MD Mar 22, 2020 11:13
--- NOTE | 2020-03-22 12:37 | CARD ---
MR#: [id number] Date of Study: 03/21/2020 Ordering Physician: GREGORY REYNA, Referring Physician: GREGORY REYNA, Tech: Dorothea Donis APPROVED REPORT EXAM: Two-dimensional and M-mode echocardiogram with Doppler and color Doppler. Other Information Quality : AverageHR: 115bpm INDICATION Cardiac Disease: CAD Congestive Heart Failure Cardiac Arrest RISK FACTORS Hypertension Hyperlipidemia 2D DIMENSIONS Left Atrium(2D)3.8 (1.6-4.0cm)IVSd1.1 (0.7-1.1cm) Aortic Root(2D)3.3 (2.0-3.7cm)LVDd6.2 (3.9-5.9cm) LVOT Diameter2.1 (1.8-2.4cm)PWd1.2 (0.7-1.1cm) LVDs4.7 (2.5-4.0cm)FS (%) 23.5 % SV89.2 mlLVEF(%)46.1 (>50%) Aortic Valve AoV Peak Magan.141.6cm/sAoV VTI20.4cm AO Peak GR.8.0mmHgLVOT VTI 22.20cm AO Mean GR.6mmHg Mitral Valve MV E Cyirbyax985.7cm/sMV E Peak Gr.10mmHg MV DECEL [id number] A Ebijjrhp60.7cm/s MV E Mean Gr.5mmHgE/A Ratio1.7 TDI Lateral E' P. V6.36cm/sMedial E' P. V8.72cm/s E/Lateral E'16.1E/Medial E'11.8 Tricuspid Valve TR P. [id number]/sRAP [id number] TR Peak Gr.[id number] LEFT VENTRICLE The Left Ventricle is mildly dilated. There is mild concentric left ventricular hypertrophy. The left vdntricular systolic function is severely impaired. The Ejection Fraction is 20-25%. Septal motion c onsistent with conduction abnormality. Transmitral Doppler flow pattern is Grade II-pseudonormal fill ing dynamics. RIGHT VENTRICLE The right ventricle is normal size. The right ventricle is mildly hypertrophied. The right ventricula r systolic function is normal. ATRIA The left atrium size is normal. The right atrium size is normal. The interatrial septum is intact wit h no evidence for an atrial septal defect or patent foramen ovale as noted on 2-D or Doppler imaging. AORTIC VALVE The aortic valve is normal in structure and function. Doppler and Color Flow revealed no significant aortic regurgitation. There is no significant aortic valvular stenosis. MITRAL VALVE The mitral valve is normal in structure and function. There is no evidence of mitral valve prolapse. There is no mitral valve stenosis. Doppler and Color-flow revealed trace mitral regurgitation. TRICUSPID VALVE The tricuspid valve is normal in structure and function. Doppler and Color Flow revealed trace tricus pid regurgitation with an estimated PAP of 20 mmHg. There is no tricuspid valve stenosis. PULMONIC VALVE The pulmonic valve is not well visualized. Doppler and Color Flow revealed trace pulmonic valvular re gurgitation. GREAT VESSELS The aortic root is normal in size. The IVC is normal in size and collapses >50% with inspiration. PERICARDIAL EFFUSION There is no evidence of significant pericardial effusion. Critical Notification Critical Value: No <Conclusion> The left vdntricular systolic function is severely impaired. The Ejection Fraction is 20-25%. Septal motion consistent with conduction abnormality. Transmitral Doppler flow pattern is Grade II-pseudonormal filling dynamics. Trace mitral regurgitation. Trace tricuspid regurgitation with an estimated PAP of 20 mmHg. There is no evidence of significant pericardial effusion. Signed by : Roosevelt Justin, Electronically Approved : 03/22/2020 12:37:21
[2020-03-22] MEDS: VANCOMYCIN 125 MG/2.5 ML ORAL SOLUTION. PO SCH ×2 (12:58→21:03)
[2020-03-22] MEDS: FUROSEMIDE 40 MG/4 ML VIAL. IVP SCH (13:02)
--- NOTE | 2020-03-22 15:44 | NUR ---
SS following up with discharge planning. SS reviewed pt chart and discussed with pt RN. Pt is currently on the vent at 40%. Pt on IV Zosyn and IV Zyvox. COVID19 negative. HIV positive. Not stable. SS will continue to follow for discharge planning.
--- NOTE | 2020-03-22 15:47 | NUR ---
Diuresis after 1200 lasix Addendum: 03/22/20 at 1548 by Brenda Restrepo RN Amended: Links added.
[2020-03-22] MEDS: ATORVASTATIN CALCIUM 40 MG TABLET. PO SCH (21:04)
[2020-03-23] VITALS (20 sets, daily range): BP systolic 82–167; BP diastolic 50–114
[2020-03-23] MEDS: MIDAZOLAM 100mg/100ml NS BAG 100 ML IV PRN ×3 (04:07→21:00)
[2020-03-23] MEDS: PIPERACILLIN/TAZOBACTAM 3.375 GM in IV NORMAL SALINE 50ML 50 ML IV SCH ×4 (05:59→23:49)
[2020-03-23 06:03] LABS: BASO % 0 % (0-3); EOS # 0.1 x10^3/uL (0.0-0.7); EOS % 1 % (0-3); HEMATOCRIT 26.1 % (39.0-53.0); LYMPH # 2.6 x10^3/uL (1.0-4.8); LYMPH % 28 % (24-48); MEAN CORPUSCULAR HEMOGLOBIN 24 pg (25-35); MEAN CORPUSCULAR HGB CONC 31 g/dL (31-37); MEAN CORPUSCULAR VOLUME 79 fL (79-100); MONO # 0.6 x10^3/uL (0.0-1.1); MONO % 7 % (0-9); NEUT # 6.1 x10^3/uL (1.8-7.7); NEUT % 64 % (31-73); PLATELET COUNT 319 x10^3/uL (140-400); RED BLOOD COUNT 3.29 x10^6/uL (4.30-5.70); RED CELL DISTRIBUTION WIDTH 17.6 % (11.5-14.5); WHITE BLOOD COUNT 9.5 x10^3/uL (4.0-11.0)
[2020-03-23 06:25] LABS: ALBUMIN 2.5 g/dL (3.4-5.0); CALCIUM 8.6 mg/dL (8.5-10.1); GFR 94.9; PHOSPHORUS 3.8 mg/dL (2.6-4.7); POTASSIUM 3.7 mmol/L (3.5-5.1)
[2020-03-23] MEDS: PANTOPRAZOLE IV PUSH 40 MG VIAL. IVP SCH (07:30)
[2020-03-23 07:34] LABS: BASE EXCESS ABG -2 mmol/L (-3-3); HCO3 ABG 23 mmol/L (21-28); PCO2 ABG 38 mmHg (35-46); PO2 ABG 101 mmHg (75-108); SAT O2 ABG 98 % (92-99)
[2020-03-23] MEDS: ELECTROLYTE (ICU) PROTOCOL. MC SCH (09:00)
--- NOTE | 2020-03-23 10:17 | PDOC ---
PROGRESS NOTES Date of Service: DATE: 03/23/20 TIME: 10:17 Chief Complaint Chief Complaint VTE Prophylaxis Ordered VTE Prophylaxis Devices: Yes VTE Pharmacological Prophylaxi: Yes Assessment/Plan Assessment/Plan ASSESSMENT 1. out of hospital arrest , witness cardiac arrest; Defibrillation // AMI ruled out. 2. H/o Vfib probable ischemic in nature, antiarrhythmics discontinued in past due to QTc prolongation of 600. 3. Acute hypoxic respiratory failure requiring vent support 4. CAD s/p PCI/BMS to the LCx 12/11/19. Treated with ASA,Brilinta initially, which was held due to recurrent GIB requiring transfusions.Due to recent PCI/BMS, Plavix was resumed while at [facility]. ASA was d/c'd 5. Chronic systolic CHF 6. ischemic cardiomyopathy LVEF 20-25%. 7. SSS s/p leadless PPM 8. Hypertension; // requiring pressor support 9. Hypokalemia, hypomagnesemia 10. H/o DAIJA requiringHD; renal function improvedand HD catheter removed 11. 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 HIV 13. Substance abuse; UDS + cocaine , ALCOHOL, TOBACCO 14. Leukocytosis, fevers. ? sepsis Covid negative. 15. H/o Vfib OOH arrest; probable ischemic in nature, antiarrhythmics discontinued in past due to QTc prolongation of 600. EKG at [facility] with QTc 507, 528. 16. Human immunodeficiency virus, CD4 was 403 on 01/16 viral load less than 20 on 01/23on [facility]. 17. History of ventricular tachycardia, Coronary artery disease, status post PCI. 18. Status post pacemaker for bradycardia 12/27 at [facility]. plan icu bed cardiology consult pulm consult Device interrogation Replace Mg, lytes Secondary prevention measures as able Resume Plavix. No ASA due to recent GIB Monitor LFTs Pressor support; wean as able Hold lisinopril, Toprol with hypotension Echo vent management GI CONSULT COVID 19 SCREEN vent support assist-control mode 50% and PEEP of 5 On heparin drip per cardiology hiv screen Echo to assess LV systolic function if COVID PCR negative Tube feeding on hold per GI, concern for ileus follow other GI recommendations vent support assist-control mode 40% and a PEEP of 5 39 MIN CC TIME History of Present Illness History of Present Illness Identification/Chief Complaint Chief Complaint admitted to icu , out of hospial arrest CAD s/p PCI/stent, cardiomyopathy, and prior cardiac arrest, presented secondary to cardiac arrest at home. Was at home with partner, Stevenson, watching television. Patient suddenly started breathing more deeply and began gasping for air. Eyes were wide and glassy. Was unresponsive. Partner was unable to feel pulse so he put him on the floor, called EMS and began chest compressions. Partner reports him drinking 3 malt beverages that evening while watching TV. No known sick contacts. EMS arrived within minutes. ROSC returned following one defibrillation. Although partner declined drug use, Narcan was administered en route due to pinpoint pupils. Limited effect from the Narcan. UDS was + for cocaine. IS COVID 19 PUI hx cardiac arrest on December 19, 2019. Patient was apparently found arrest in his car EMS noted in v-fib. ROSC was achieved following 1 defibrillation and 1 round of epi.//activated as STEMI with LBBB. Emergent cath notable for blockage of left circumflex. //PCI/BMS to the Left circumflex. went into Vfib in cardiac cath tech and was initiated on Amiodarone therapy. LVEF noted at 20-25%. Developed DAIJA due to cardiogenic shock. had multiple episodes of bradycardia/significant pauses mostly related to suctioning. then leadlessPPM placement.Treated for Klebsiella PNA as well. course further complicated by GIB requiring tranfusion. 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 Past Medical History Past Medical History PAST MEDICAL HISTORY Past Medical History HIV, HTN, CAD s/p PCI/BMS to the LCx, GIB from arteriovenous malformation, esophagitis, gastritis, DAIJA requiring HD, bradycardia s/p Leadless PPM PAST SURGICAL HISTORY Past Surgical History: Pacemaker, Tonsillectomy, Other (PCI/stent ) FAMILY HISTORY Family History Other (no pertinent history) SOCIAL HISTORY Social History Smoke: <1 pack per day ALCOHOL: none Drugs: None Lives: with Family (with partner ) Cardiovascular: CAD, HTN, Hyperlipidemia Infectious disease: HIV Past Surgical History Past Surgical History: Pacemaker Family History Family History: Hypertension, Other Social History Smoke: <1 pack per day ALCOHOL: occassional Drugs: None, Cocaine Vitals Vitals Vital Signs Date Time Temp Pulse Resp B/P (MAP) Pulse Ox O2 Delivery O2 Flow Rate FiO2 03/23/20 10:01 100 Ventilator 03/23/20 09:00 80 22 03/23/20 08:00 99.0 99.0 03/22/20 16:06 5.0 Physical Exam Physical Exam GENERAL: Intubated, sedated. HEENT: Conjunctival suffusion. Pupils equal, reactive. ETT OGT present. NECK: Supple. LUNGS: Clear anteriorly. HEART: S1, S2, tachycardia. ABDOMEN: Obese, mildly distended. Bowel sounds present. EXTREMITIES: No edema or cyanosis. DERMATOLOGIC: Warm and dry. No generalized rash. NEUROLOGIC: Unable to assess. General: Other (sedated ) Heart: Regular rate Lungs: Clear Abdomen: Soft Extremities: No edema, Normal pulses Skin: No significant lesion Labs LABS Laboratory Tests Test 03/23/20 05:00 03/23/20 07:32 White Blood Count 9.5 x10^3/uL (4.0-11.0) Red Blood Count 3.29 x10^6/uL (4.30-5.70) Hemoglobin 8.0 g/dL (13.0-17.5) Hematocrit 26.1 % (39.0-53.0) Mean Corpuscular Volume 79 fL (79-100) Mean Corpuscular Hemoglobin 24 pg (25-35) Mean Corpuscular Hemoglobin Concent 31 g/dL (31-37) Red Cell Distribution Width 17.6 % (11.5-14.5) Platelet Count 319 x10^3/uL (140-400) Neutrophils (%) (Auto) 64 % (31-73) Lymphocytes (%) (Auto) 28 % (24-48) Monocytes (%) (Auto) 7 % (0-9) Eosinophils (%) (Auto) 1 % (0-3) Basophils (%) (Auto) 0 % (0-3) Neutrophils # (Auto) 6.1 x10^3/uL (1.8-7.7) Lymphocytes # (Auto) 2.6 x10^3/uL (1.0-4.8) Monocytes # (Auto) 0.6 x10^3/uL (0.0-1.1) Eosinophils # (Auto) 0.1 x10^3/uL (0.0-0.7) Basophils # (Auto) 0.0 x10^3/uL (0.0-0.2) Sodium Level 146 mmol/L (136-145) Potassium Level 3.7 mmol/L (3.5-5.1) Chloride Level 111 mmol/L (98-107) Carbon Dioxide Level 26 mmol/L (21-32) Anion Gap 9 (6-14) Blood Urea Nitrogen 6 mg/dL (8-26) Creatinine 1.0 mg/dL (0.7-1.3) Estimated GFR (Cockcroft-Gault) 94.9 Glucose Level 83 mg/dL (70-99) Calcium Level 8.6 mg/dL (8.5-10.1) Phosphorus Level 3.8 mg/dL (2.6-4.7) Albumin 2.5 g/dL (3.4-5.0) O2 Saturation 98 % (92-99) Arterial Blood pH 7.40 (7.35-7.45) Arterial Blood pCO2 at Patient Temp 38 mmHg (35-46) Arterial Blood pO2 at Patient Temp 101 mmHg (75-108) Arterial Blood HCO3 23 mmol/L (21-28) Arterial Blood Base Excess -2 mmol/L (-3-3) FiO2 40 vent Comment Review of Relevant I have reviewed the following items joel (where applicable) has been applied. Labs Laboratory Tests Test 03/21/20 11:25 03/21/20 20:48 03/22/20 03:15 03/22/20 08:00 Heparin Anti-Xa Act, Unfractionated 0.12 IU/mL (0.30-0.70) 0.44 IU/mL (0.30-0.70) 0.44 IU/mL (0.30-0.70) Troponin I Quantitative 0.153 ng/mL (0.000-0.055) White Blood Count 12.3 x10^3/uL (4.0-11.0) Red Blood Count 3.35 x10^6/uL (4.30-5.70) Hemoglobin 8.3 g/dL (13.0-17.5) Hematocrit 26.7 % (39.0-53.0) Mean Corpuscular Volume 80 fL (79-100) Mean Corpuscular Hemoglobin 25 pg (25-35) Mean Corpuscular Hemoglobin Concent 31 g/dL (31-37) Red Cell Distribution Width 17.2 % (11.5-14.5) Platelet Count 260 x10^3/uL (140-400) Neutrophils (%) (Auto) 73 % (31-73) Lymphocytes (%) (Auto) 18 % (24-48) Monocytes (%) (Auto) 6 % (0-9) Eosinophils (%) (Auto) 2 % (0-3) Basophils (%) (Auto) 1 % (0-3) Neutrophils # (Auto) 9.0 x10^3/uL (1.8-7.7) Lymphocytes # (Auto) 2.2 x10^3/uL (1.0-4.8) Monocytes # (Auto) 0.7 x10^3/uL (0.0-1.1) Eosinophils # (Auto) 0.3 x10^3/uL (0.0-0.7) Basophils # (Auto) 0.1 x10^3/uL (0.0-0.2) Sodium Level 140 mmol/L (136-145) Potassium Level 3.7 mmol/L (3.5-5.1) Chloride Level 109 mmol/L (98-107) Carbon Dioxide Level 24 mmol/L (21-32) Anion Gap 7 (6-14) Blood Urea Nitrogen 8 mg/dL (8-26) Creatinine 0.9 mg/dL (0.7-1.3) Estimated GFR (Cockcroft-Gault) 107.2 BUN/Creatinine Ratio 9 (6-20) Glucose Level 115 mg/dL (70-99) Calcium Level 8.2 mg/dL (8.5-10.1) Magnesium Level 2.2 mg/dL (1.8-2.4) Total Bilirubin 0.9 mg/dL (0.2-1.0) Aspartate Amino Transf (AST/SGOT) 17 U/L (15-37) Alanine Aminotransferase (ALT/SGPT) 20 U/L (16-63) Alkaline Phosphatase 77 U/L (46-116) Total Protein 6.3 g/dL (6.4-8.2) Albumin 2.2 g/dL (3.4-5.0) Albumin/Globulin Ratio 0.5 (1.0-1.7) O2 Saturation 98 % (92-99) Arterial Blood pH 7.42 (7.35-7.45) Arterial Blood pCO2 at Patient Temp 33 mmHg (35-46) Arterial Blood pO2 at Patient Temp 119 mmHg (75-108) Arterial Blood HCO3 21 mmol/L (21-28) Arterial Blood Base Excess -3 mmol/L (-3-3) FiO2 50%+5 Test 03/23/20 05:00 03/23/20 07:32 White Blood Count 9.5 x10^3/uL (4.0-11.0) Red Blood Count 3.29 x10^6/uL (4.30-5.70) Hemoglobin 8.0 g/dL (13.0-17.5) Hematocrit 26.1 % (39.0-53.0) Mean Corpuscular Volume 79 fL (79-100) Mean Corpuscular Hemoglobin 24 pg (25-35) Mean Corpuscular Hemoglobin Concent 31 g/dL (31-37) Red Cell Distribution Width 17.6 % (11.5-14.5) Platelet Count 319 x10^3/uL (140-400) Neutrophils (%) (Auto) 64 % (31-73) Lymphocytes (%) (Auto) 28 % (24-48) Monocytes (%) (Auto) 7 % (0-9) Eosinophils (%) (Auto) 1 % (0-3) Basophils (%) (Auto) 0 % (0-3) Neutrophils # (Auto) 6.1 x10^3/uL (1.8-7.7) Lymphocytes # (Auto) 2.6 x10^3/uL (1.0-4.8) Monocytes # (Auto) 0.6 x10^3/uL (0.0-1.1) Eosinophils # (Auto) 0.1 x10^3/uL (0.0-0.7) Basophils # (Auto) 0.0 x10^3/uL (0.0-0.2) Sodium Level 146 mmol/L (136-145) Potassium Level 3.7 mmol/L (3.5-5.1) Chloride Level 111 mmol/L (98-107) Carbon Dioxide Level 26 mmol/L (21-32) Anion Gap 9 (6-14) Blood Urea Nitrogen 6 mg/dL (8-26) Creatinine 1.0 mg/dL (0.7-1.3) Estimated GFR (Cockcroft-Gault) 94.9 Glucose Level 83 mg/dL (70-99) Calcium Level 8.6 mg/dL (8.5-10.1) Phosphorus Level 3.8 mg/dL (2.6-4.7) Albumin 2.5 g/dL (3.4-5.0) O2 Saturation 98 % (92-99) Arterial Blood pH 7.40 (7.35-7.45) Arterial Blood pCO2 at Patient Temp 38 mmHg (35-46) Arterial Blood pO2 at Patient Temp 101 mmHg (75-108) Arterial Blood HCO3 23 mmol/L (21-28) Arterial Blood Base Excess -2 mmol/L (-3-3) FiO2 40 vent Laboratory Tests Test 03/23/20 05:00 03/23/20 07:32 White Blood Count 9.5 x10^3/uL (4.0-11.0) Red Blood Count 3.29 x10^6/uL (4.30-5.70) Hemoglobin 8.0 g/dL (13.0-17.5) Hematocrit 26.1 % (39.0-53.0) Mean Corpuscular Volume 79 fL (79-100) Mean Corpuscular Hemoglobin 24 pg (25-35) Mean Corpuscular Hemoglobin Concent 31 g/dL (31-37) Red Cell Distribution Width 17.6 % (11.5-14.5) Platelet Count 319 x10^3/uL (140-400) Neutrophils (%) (Auto) 64 % (31-73) Lymphocytes (%) (Auto) 28 % (24-48) Monocytes (%) (Auto) 7 % (0-9) Eosinophils (%) (Auto) 1 % (0-3) Basophils (%) (Auto) 0 % (0-3) Neutrophils # (Auto) 6.1 x10^3/uL (1.8-7.7) Lymphocytes # (Auto) 2.6 x10^3/uL (1.0-4.8) Monocytes # (Auto) 0.6 x10^3/uL (0.0-1.1) Eosinophils # (Auto) 0.1 x10^3/uL (0.0-0.7) Basophils # (Auto) 0.0 x10^3/uL (0.0-0.2) Sodium Level 146 mmol/L (136-145) Potassium Level 3.7 mmol/L (3.5-5.1) Chloride Level 111 mmol/L (98-107) Carbon Dioxide Level 26 mmol/L (21-32) Anion Gap 9 (6-14) Blood Urea Nitrogen 6 mg/dL (8-26) Creatinine 1.0 mg/dL (0.7-1.3) Estimated GFR (Cockcroft-Gault) 94.9 Glucose Level 83 mg/dL (70-99) Calcium Level 8.6 mg/dL (8.5-10.1) Phosphorus Level 3.8 mg/dL (2.6-4.7) Albumin 2.5 g/dL (3.4-5.0) O2 Saturation 98 % (92-99) Arterial Blood pH 7.40 (7.35-7.45) Arterial Blood pCO2 at Patient Temp 38 mmHg (35-46) Arterial Blood pO2 at Patient Temp 101 mmHg (75-108) Arterial Blood HCO3 23 mmol/L (21-28) Arterial Blood Base Excess -2 mmol/L (-3-3) FiO2 40 vent Microbiology 03/21/20 Gram Stain Evaluation - Final, Resulted 03/21/20 Respiratory Culture - Preliminary, Resulted 03/20/20 Blood Culture - Preliminary, Resulted NO GROWTH AFTER 2 DAYS Medications Current Medications Norepinephrine Bitartrate 8 mg/ Dextrose 258 ml @ 18.247 mls/ hr CONT PRN IV PER PROTOCOL Last administered on 03/21/20at 09:19; Start 03/20/20 at 04:15 Dopamine HCl/ Dextrose 250 ml @ 17.681 mls/ hr CONT PRN IV SEE I/O RECORD; Start 03/20/20 at 04:30 Heparin Sodium/ Dextrose 250 ml @ 0 mls/hr CONT PRN IV PER PROTOCOL Last administered on 03/21/20at 22:15; Start 03/20/20 at 04:30; Stop 03/22/20 at 10:15; Status DC Heparin Sodium (Porcine) (Heparin Sodium) 2,400 unit PRN Q6HRS PRN IV FOR UFH LEVEL LESS THAN 0.2 Last administered on 03/21/20at 14:17; Start 03/20/20 at 04:30; Stop 03/22/20 at 10:15; Status DC Fentanyl Citrate 30 ml @ 0 mls/hr CONT PRN IV SEE PROTOCOL Last administered on 03/23/20at 06:19; Start 03/20/20 at 04:45 Lorazepam (Ativan Inj) 1 mg PRN Q1HR PRN IV SEE COMMENTS; Start 03/20/20 at 04:45 Fentanyl Citrate (Fentanyl 2ml Vial) 25 mcg PRN Q1HR PRN IV SEE COMMENTS; St art 03/20/20 at 04:45 Fentanyl Citrate (Fentanyl 2ml Vial) 50 mcg PRN Q1HR PRN IV SEE COMMENTS; Start 03/20/20 at 04:45 Chlorhexidine Gluconate (Peridex) 15 ml BID MM ; Start 03/20/20 at 09:00; Stop 03/20/20 at 07:24; Status DC Famotidine (Pepcid Vial) 20 mg BID IVP Last administered on 03/20/20at 08:07; Start 03/20/20 at 09:00; Stop 03/20/20 at 12:52; Status DC Morphine Sulfate (Morphine Sulfate) 2 mg PRN Q1HR PRN IV SEE COMMENTS.; Start 03/20/20 at 04:45 Morphine Sulfate (Morphine Sulfate) 4 mg PRN Q1HR PRN IV SEE COMMENTS.; Start 03/20/20 at 04:45 Midazolam HCl 100 ml @ 0 mls/hr CONT PRN IV SEE PROTOCOL Last administered on 03/23/20at 04:07; Start 03/20/20 at 04:45 Docusate Sodium (Colace Solution) 100 mg BID NG Last administered on 03/22/20at 21:03; Start 03/20/20 at 09:00 Sodium Chloride 1,000 ml @ 75 mls/hr [id number] IV Last administered on 03/22/20at 23:46; Start 03/20/20 at 06:30 Acetaminophen (Tylenol) 650 mg PRN Q6HRS PRN PEG MILD PAIN / TEMP > 100.3'F Last administered on 03/21/20at 16:33; Start 03/20/20 at 09:00 Piperacillin Sod/ Tazobactam Sod (Zosyn Per Pharmacy) 1 each PRN DAILY PRN MC SEE COMMENTS; Start 03/20/20 at 09:30 Piperacillin Sod/ Tazobactam Sod 3.375 gm/Sodium Chloride 50 ml @ 100 mls/hr Q6HRS IV Last administered on 03/23/20at 05:59; Start 03/20/20 at 10:00 Magnesium Sulfate 50 ml @ 25 mls/hr 1X ONCE IV Last administered on 03/20/20at 10:21; Start 03/20/20 at 09:45; Stop 03/20/20 at 11:44; Status DC Clopidogrel Bisulfate (Plavix) 75 mg DAILYWBKFT PO Last administered on 03/22/20at 08:52; Start 03/20/20 at 12:00 Atorvastatin Calcium (Lipitor) 80 mg QHS PO Last administered on 03/22/20at 21:04; Start 03/20/20 at 21:00 Ondansetron HCl (Zofran) 4 mg PRN Q6HRS PRN IVP NAUSEA/VOMITING; Start 03/20/20 at 10:30 Famotidine (Pepcid Vial) 20 mg BID IVP ; Start 03/20/20 at 11:00; Stop 03/20/20 at 12:35; Status DC Info (Icu Electrolyte Protocol) 1 ea DAILY MC ; Start 03/21/20 at 09:00 Sodium Chloride (Normal Saline Flush) 3 ml QSHIFT PRN IV AFTER MEDS AND BLOOD D RAWS; Start 03/20/20 at 10:30 Pantoprazole Sodium (PROTONIX VIAL for IV PUSH) 40 mg DAILYAC IVP Last administered on 03/22/20at 08:52; Start 03/20/20 at 12:30 Potassium Bicarbonate (Potassium Effervescent Tablet) 40 meq 1X ONCE PEG Last administered on 03/20/20at 14:47; Start 03/20/20 at 14:00; Stop 03/20/20 at 14:20; Status DC Non-Formulary Medication (ABACAVIR/ DOLUTEGRAVIR/ LAMIVUDINE (Triumeq) tablet) 1 ea DAILY PO Last administered on 03/22/20at 08:52; Start 03/20/20 at 17:00 Vancomycin HCl (Vancomycin Oral Solution) 125 mg BID PO Last administered on 03/22/20at 21:03; Start 03/20/20 at 21:30 Linezolid/Dextrose 300 ml @ 300 mls/hr Q12HR IV Last administered on 03/22/20at 21:03; Start 03/21/20 at 09:00 Furosemide (Lasix) 40 mg DAILY IVP Last administered on 03/22/20at 13:02; Start 03/22/20 at 11:00 Potassium Chloride/Water 100 ml @ 50 mls/hr 1X ONCE IV Last administered on 03/22/20at 12:58; Start 03/22/20 at 10:30; Stop 03/22/20 at 12:29; Status DC Active Scripts Active Furosemide 40 Mg Tablet 40 Mg PO DAILY 90 Days Tramadol Hcl 50 Mg Tablet 50 Mg PO PRN Q6HRS PRN 6 Days Metoprolol Succinate ( Xl ) (Metoprolol Succinate) 25 Mg Tab.er.24h 12.5 Mg PO DAILY 90 Days Clopidogrel (Clopidogrel Bisulfate) 75 Mg Tablet 75 Mg PO DAILYWBKFT 90 Days Lisinopril 10 Mg Tablet 1 Tab PO DAILY 90 Days Atorvastatin Calcium 80 Mg Tablet 80 Mg PO QHS 90 Days Reported Klor-Con M20 (Potassium Chloride) 20 Meq Tab.er.prt 20 Meq PO TID Pantoprazole Sodium (Pantoprazole Sodium) 40 Mg Tablet.dr 40 Mg PO BID Duoneb 0.5-3(2.5) Mg/3 Ml (Albuterol/Ipratropium) 3 Ml Ampul.neb 3 Ml NEB PRN Q6HRS PRN Acetaminophen 325 Mg Tablet 1 Tab PO PRN Q6HRS PRN 24 Days Triumeq Tablet (Abacavir/Dolutegravir/Lamivudi) 1 Each Tablet 1 Tab PO DAILY 30 Days Gabapentin (Gabapentin) 300 Mg Capsule 100 Mg PO TID Children's Aspirin (Aspirin) 81 Mg Tab.chew 1 Tab PO DAILY 30 Days Vitals/I & O Vital Sign - Last 24 Hours 03/22/20 03/22/20 03/22/20 03/22/20 11:00 11:15 12:00 12:00 Pulse 80 84 Resp 20 20 B/P (MAP) 97/62 (74) 122/80 (94) Pulse Ox 100 100 100 O2 Delivery Ventilator Ventilator Ventilator Mechanical Ventilator 03/22/20 03/22/20 03/22/20 03/22/20 13:00 14:00 15:00 15:24 Pulse 80 88 90 Resp 20 20 20 B/P (MAP) 122/68 (86) 148/81 (103) 117/73 (88) Pulse Ox 100 100 100 100 O2 Delivery Ventilator Ventilator Ventilator Ventilator 03/22/20 03/22/20 03/22/20 03/22/20 15:36 16:00 16:00 16:06 Pulse 84 Resp 20 B/P (MAP) 99/64 (76) Pulse Ox 100 99 97 O2 Delivery Ventilator Mechanical Ventilator O2 Flow Rate 5.0 03/22/20 03/22/20 03/22/20 03/22/20 16:29 17:00 18:00 19:00 Temp 99.3 99.3 Pulse 82 73 85 Resp 20 20 20 B/P (MAP) 97/57 (70) 108/84 (92) 134/79 (97) Pulse Ox 97 99 100 O2 Delivery Mechanical Ventilator Ventilator Ventilator Ventilator 03/22/20 03/22/20 03/22/20 03/22/20 20:00 20:00 20:15 21:00 Temp 98.1 98.1 Pulse 88 110 Resp 20 20 B/P (MAP) 117/70 (86) 101/61 (74) Pulse Ox 98 100 98 O2 Delivery Mechanical Ventilator Ventilator Ventilator Ventilator 03/22/20 03/22/20 03/22/20 03/23/20 22:00 23:00 23:42 00:00 Pulse 83 90 Resp 20 20 B/P (MAP) 90/55 (67) 133/78 (96) Pulse Ox 100 100 100 O2 Delivery Ventilator Ventilator Ventilator Mechanical Ventilator 03/23/20 03/23/20 03/23/20 03/23/20 00:00 00:14 00:45 01:00 Temp 98.1 98.1 Pulse 81 74 Resp 22 22 20 20 B/P (MAP) 142/92 (109) 118/74 (89) Pulse Ox 100 100 O2 Delivery Ventilator Ventilator Ventilator Ventilator 03/23/20 03/23/20 03/23/20 03/23/20 02:00 03:00 04:00 04:00 Temp 98.1 98.1 Pulse 73 68 77 Resp 20 20 20 B/P (MAP) 112/72 (85) 108/71 (83) 134/87 (103) Pulse Ox 100 100 100 O2 Delivery Ventilator Ventilator Mechanical Ventilator Ventilator 03/23/20 03/23/20 03/23/20 03/23/20 04:11 05:00 06:00 06:19 Pulse 87 77 Resp 24 22 20 B/P (MAP) 142/95 (111) 124/80 (95) Pulse Ox 100 100 100 100 O2 Delivery Ventilator Ventilator Ventilator Ventilator 03/23/20 03/23/20 03/23/20 03/23/20 07:00 07:26 08:00 09:00 Temp 99.0 99.0 Pulse 84 82 80 Resp B/P (MAP) 157/106 (123) 127/91 (103) 117/67 (84) Pulse Ox 100 100 100 100 O2 Delivery Ventilator Ventilator Ventilator Ventilator 03/23/20 10:01 B/P (MAP) Pulse Ox 100 O2 Delivery Ventilator Intake and Output 03/22/20 03/22/20 03/23/20 15:00 23:00 07:00 Intake Total 125 ml 959 ml Output Total 2725 ml 2125 ml 500 ml Balance -2600 ml -1166 ml -500 ml Justicifation of Admission Dx: Justifications for Admission: Justification of Admission Dx: Yes GLADYS FAUSTIN MD Mar 23, 2020 10:17
--- NOTE | 2020-03-23 11:04 | PDOC ---
PULMONARY PROGRESS NOTES DATE: 03/23/20 TIME: 10:59 Subjective Patient remains on vent support assist-control mode 40% and a PEEP of 5 low grade fever overnight No other concerns from nursing at this time Vitals Vital Signs Date Time Temp Pulse Resp B/P (MAP) Pulse Ox O2 Delivery O2 Flow Rate FiO2 03/23/20 10:01 100 Ventilator 03/23/20 09:00 80 22 03/23/20 08:00 99.0 99.0 03/22/20 16:06 5.0 Comments Intubated/sedated Lungs: Clear Extremities: No Edema Labs Laboratory Tests Test 03/21/20 11:25 03/21/20 20:48 03/22/20 03:15 03/22/20 08:00 Heparin Anti-Xa Act, Unfractionated 0.12 IU/mL (0.30-0.70) 0.44 IU/mL (0.30-0.70) 0.44 IU/mL (0.30-0.70) Troponin I Quantitative 0.153 ng/mL (0.000-0.055) White Blood Count 12.3 x10^3/uL (4.0-11.0) Red Blood Count 3.35 x10^6/uL (4.30-5.70) Hemoglobin 8.3 g/dL (13.0-17.5) Hematocrit 26.7 % (39.0-53.0) Mean Corpuscular Volume 80 fL (79-100) Mean Corpuscular Hemoglobin 25 pg (25-35) Mean Corpuscular Hemoglobin Concent 31 g/dL (31-37) Red Cell Distribution Width 17.2 % (11.5-14.5) Platelet Count 260 x10^3/uL (140-400) Neutrophils (%) (Auto) 73 % (31-73) Lymphocytes (%) (Auto) 18 % (24-48) Monocytes (%) (Auto) 6 % (0-9) Eosinophils (%) (Auto) 2 % (0-3) Basophils (%) (Auto) 1 % (0-3) Neutrophils # (Auto) 9.0 x10^3/uL (1.8-7.7) Lymphocytes # (Auto) 2.2 x10^3/uL (1.0-4.8) Monocytes # (Auto) 0.7 x10^3/uL (0.0-1.1) Eosinophils # (Auto) 0.3 x10^3/uL (0.0-0.7) Basophils # (Auto) 0.1 x10^3/uL (0.0-0.2) Sodium Level 140 mmol/L (136-145) Potassium Level 3.7 mmol/L (3.5-5.1) Chloride Level 109 mmol/L (98-107) Carbon Dioxide Level 24 mmol/L (21-32) Anion Gap 7 (6-14) Blood Urea Nitrogen 8 mg/dL (8-26) Creatinine 0.9 mg/dL (0.7-1.3) Estimated GFR (Cockcroft-Gault) 107.2 BUN/Creatinine Ratio 9 (6-20) Glucose Level 115 mg/dL (70-99) Calcium Level 8.2 mg/dL (8.5-10.1) Magnesium Level 2.2 mg/dL (1.8-2.4) Total Bilirubin 0.9 mg/dL (0.2-1.0) Aspartate Amino Transf (AST/SGOT) 17 U/L (15-37) Alanine Aminotransferase (ALT/SGPT) 20 U/L (16-63) Alkaline Phosphatase 77 U/L (46-116) Total Protein 6.3 g/dL (6.4-8.2) Albumin 2.2 g/dL (3.4-5.0) Albumin/Globulin Ratio 0.5 (1.0-1.7) O2 Saturation 98 % (92-99) Arterial Blood pH 7.42 (7.35-7.45) Arterial Blood pCO2 at Patient Temp 33 mmHg (35-46) Arterial Blood pO2 at Patient Temp 119 mmHg (75-108) Arterial Blood HCO3 21 mmol/L (21-28) Arterial Blood Base Excess -3 mmol/L (-3-3) FiO2 50%+5 Test 03/23/20 05:00 03/23/20 07:32 White Blood Count 9.5 x10^3/uL (4.0-11.0) Red Blood Count 3.29 x10^6/uL (4.30-5.70) Hemoglobin 8.0 g/dL (13.0-17.5) Hematocrit 26.1 % (39.0-53.0) Mean Corpuscular Volume 79 fL (79-100) Mean Corpuscular Hemoglobin 24 pg (25-35) Mean Corpuscular Hemoglobin Concent 31 g/dL (31-37) Red Cell Distribution Width 17.6 % (11.5-14.5) Platelet Count 319 x10^3/uL (140-400) Neutrophils (%) (Auto) 64 % (31-73) Lymphocytes (%) (Auto) 28 % (24-48) Monocytes (%) (Auto) 7 % (0-9) Eosinophils (%) (Auto) 1 % (0-3) Basophils (%) (Auto) 0 % (0-3) Neutrophils # (Auto) 6.1 x10^3/uL (1.8-7.7) Lymphocytes # (Auto) 2.6 x10^3/uL (1.0-4.8) Monocytes # (Auto) 0.6 x10^3/uL (0.0-1.1) Eosinophils # (Auto) 0.1 x10^3/uL (0.0-0.7) Basophils # (Auto) 0.0 x10^3/uL (0.0-0.2) Sodium Level 146 mmol/L (136-145) Potassium Level 3.7 mmol/L (3.5-5.1) Chloride Level 111 mmol/L (98-107) Carbon Dioxide Level 26 mmol/L (21-32) Anion Gap 9 (6-14) Blood Urea Nitrogen 6 mg/dL (8-26) Creatinine 1.0 mg/dL (0.7-1.3) Estimated GFR (Cockcroft-Gault) 94.9 Glucose Level 83 mg/dL (70-99) Calcium Level 8.6 mg/dL (8.5-10.1) Phosphorus Level 3.8 mg/dL (2.6-4.7) Albumin 2.5 g/dL (3.4-5.0) O2 Saturation 98 % (92-99) Arterial Blood pH 7.40 (7.35-7.45) Arterial Blood pCO2 at Patient Temp 38 mmHg (35-46) Arterial Blood pO2 at Patient Temp 101 mmHg (75-108) Arterial Blood HCO3 23 mmol/L (21-28) Arterial Blood Base Excess -2 mmol/L (-3-3) FiO2 40 vent Laboratory Tests Test 03/23/20 05:00 03/23/20 07:32 White Blood Count 9.5 x10^3/uL (4.0-11.0) Red Blood Count 3.29 x10^6/uL (4.30-5.70) Hemoglobin 8.0 g/dL (13.0-17.5) Hematocrit 26.1 % (39.0-53.0) Mean Corpuscular Volume 79 fL (79-100) Mean Corpuscular Hemoglobin 24 pg (25-35) Mean Corpuscular Hemoglobin Concent 31 g/dL (31-37) Red Cell Distribution Width 17.6 % (11.5-14.5) Platelet Count 319 x10^3/uL (140-400) Neutrophils (%) (Auto) 64 % (31-73) Lymphocytes (%) (Auto) 28 % (24-48) Monocytes (%) (Auto) 7 % (0-9) Eosinophils (%) (Auto) 1 % (0-3) Basophils (%) (Auto) 0 % (0-3) Neutrophils # (Auto) 6.1 x10^3/uL (1.8-7.7) Lymphocytes # (Auto) 2.6 x10^3/uL (1.0-4.8) Monocytes # (Auto) 0.6 x10^3/uL (0.0-1.1) Eosinophils # (Auto) 0.1 x10^3/uL (0.0-0.7) Basophils # (Auto) 0.0 x10^3/uL (0.0-0.2) Sodium Level 146 mmol/L (136-145) Potassium Level 3.7 mmol/L (3.5-5.1) Chloride Level 111 mmol/L (98-107) Carbon Dioxide Level 26 mmol/L (21-32) Anion Gap 9 (6-14) Blood Urea Nitrogen 6 mg/dL (8-26) Creatinine 1.0 mg/dL (0.7-1.3) Estimated GFR (Cockcroft-Gault) 94.9 Glucose Level 83 mg/dL (70-99) Calcium Level 8.6 mg/dL (8.5-10.1) Phosphorus Level 3.8 mg/dL (2.6-4.7) Albumin 2.5 g/dL (3.4-5.0) O2 Saturation 98 % (92-99) Arterial Blood pH 7.40 (7.35-7.45) Arterial Blood pCO2 at Patient Temp 38 mmHg (35-46) Arterial Blood pO2 at Patient Temp 101 mmHg (75-108) Arterial Blood HCO3 23 mmol/L (21-28) Arterial Blood Base Excess -2 mmol/L (-3-3) FiO2 40 vent Medications Active Scripts Medications Dose Route/Sig Max Daily Dose Days Date Category Furosemide 40 Mg Tablet 40 Mg PO DAILY 02/02/20 Rx Tramadol Hcl 50 Mg Tablet 50 Mg PO PRN Q6HRS PRN 6 02/02/20 Rx Metoprolol Succinate ( Xl ) (Metoprolol Succinate) 25 Mg Tab.er.24h 12.5 Mg PO DAILY 02/02/20 Rx Clopidogrel (Clopidogrel Bisulfate) 75 Mg Tablet 75 Mg PO DAILYWBKFT 02/02/20 Rx Lisinopril 10 Mg Tablet 1 Tab PO DAILY 02/02/20 Rx Atorvastatin Calcium 80 Mg Tablet 80 Mg PO QHS 02/02/20 Rx Klor-Con M20 (Potassium Chloride) 20 Meq Tab.er.prt 20 Meq PO TID 01/31/20 Reported Pantoprazole Sodium (Pantoprazole Sodium) 40 Mg Tablet.dr 40 Mg PO BID 01/31/20 Reported Duoneb 0.5-3(2.5) Mg/3 Ml (Albuterol/Ipratropium) 3 Ml Ampul.neb 3 Ml NEB PRN Q6HRS PRN 01/31/20 Reported Acetaminophen 325 Mg Tablet 1 Tab PO PRN Q6HRS PRN 24 01/31/20 Reported Triumeq Tablet (Abacavir/Dolutegravir/Lamivudi) 1 Each Tablet 1 Tab PO DAILY 30 01/31/20 Reported Gabapentin (Gabapentin) 300 Mg Capsule 100 Mg PO TID 01/31/20 Reported Children's Aspirin (Aspirin) 81 Mg Tab.chew 1 Tab PO DAILY 30 01/31/20 Reported Comments CXR IMPRESSION: Aeration of the lungs appears similar to the prior examination. Support lines and tubes are in similar position. Impression . IMPRESSION: 1. Acute hypoxemic respiratory failure secondary to [id number] cardiopulmonary arrest. 2. History of ventricular fibrillation with previous [id number] cardiac arrest. 3. History of coronary artery disease, status post percutaneous coronary intervention to the circumflex. 4. History of gastrointestinal bleed. 5. Chronic systolic heart failure. 6. Ischemic cardiomyopathy, ejection fraction 20-25%. 7. Status post pacemaker implantation. 8. Hypertension. 9. Hypokalemia. 10. Previous kidney injury requiring hemodialysis. 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 12. Human immunodeficiency virus. 13. Polysubstance use. Plan . Continue current ventilatory support FiO2 40% and a PEEP of 5 Follow chest x-ray as needed/ABG make changes as indicated, reduce Fi02 to 35% Sedation vacation preformed this am, pt. became very agitation and was re- sedated, plan for pressure support in am Continue empiric antibiotics per infectious disease Follow other cardiology recommendations Tube feeding remains on hold per GI---follow other GI recommendations DVT/GI prophylaxis Discussed with RN and RT Critical care time [id number] DAMIÁN HASTINGS MD Mar 23, 2020 11:04
[2020-03-23] MEDS: ACETAMINOPHEN 650 MG/20.3 ML SOLUTION. PEG PRN (12:16)
[2020-03-23] MEDS: FUROSEMIDE 40 MG/4 ML VIAL. IVP SCH (12:17)
[2020-03-23] MEDS: DOLUTEGRAVIR PO SCH (12:19)
[2020-03-23] MEDS: ABACAVIR PO SCH (12:19)
[2020-03-23] MEDS: LAMIVUDINE PO SCH (12:19)
[2020-03-23] MEDS: VANCOMYCIN 125 MG/2.5 ML ORAL SOLUTION. PO SCH ×2 (12:21→21:04)
[2020-03-23] MEDS: CLOPIDOGREL BISULFATE 75 MG TABLET PO SCH (12:25)
[2020-03-23] MEDS: DOCUSATE 100 MG/10 ML SOLUTION. NG SCH ×2 (12:28→21:02)
--- NOTE | 2020-03-23 12:46 | PDOC ---
PROGRESS NOTES Date of Service DATE: 03/23/20 TIME: 12:42 Subjective Subjective Patient seen and evaluated Objective Objective Vital Signs Date Time Temp Pulse Resp B/P (MAP) Pulse Ox O2 Delivery O2 Flow Rate FiO2 03/23/20 11:31 99 Ventilator 03/23/20 10:01 03/23/20 09:00 80 22 03/23/20 08:00 99.0 99.0 03/22/20 16:06 5.0 Intake and Output 03/23/20 07:00 Intake Total 1084 ml Output Total 5350 ml Balance -4266 ml Intake Oral 0 ml IV Total 1084 ml Output Urine Total 5250 ml Gastric Drainage Total 100 ml Physical Exam Abdomen: Normal bowel sounds Heart: Regular rate General: Other (Intubated.) Lungs: Other (Decreased breath sounds.) Assessment Assessment OOH, witness cardiac arrest; Rhythm upon arrival unknown, although shockable as he was defibrillated x1 with ROSC. . remains intubated/vent Mild troponin elevation; trop highest 0.3 s/p resuscitation. EKG with LBBB Covid negative. H/o Vfib OOH arrest; probable ischemic in nature, antiarrhythmics discontinued in past due to QTc prolongation of 600. EKG at [facility] with QTc 507, 528. Acute respiratory failure secondary to above; s/p intubation. Followed by the pulmonary service. CAD s/p PCI/BMS to the LCx 12/11/19. Treated with ASA,Brilinta initially, which was held due to recurrent GIB requiring transfusions.Due to recent PCI/BMS, Plavix was resumed while at [facility]. ASA was discontinued.No further bleeding concerns ICM; LVEF 15-20%. SSS s/p leadless PPM implantation ([employer]onic Micra). Device does not store history rhythm data. History of hypertension; now hypotensive. Pressor support as needed. H/o DAIJA requiringHD; renal function improvedand HD catheter removed GIB secondary to duodenal AVM bleed s/p clipping HIV Substance abuse; UDS + cocaine at [facility] Noncompliance; s/o reports he has not been taken meds routinely Coffee-ground gastric contents: Continuing to monitor Comment Review of Relevant I have reviewed the following items joel (where applicable) has been applied. Labs Laboratory Tests Test 03/21/20 20:48 03/22/20 03:15 03/22/20 08:00 03/23/20 05:00 Heparin Anti-Xa Act, Unfractionated 0.44 IU/mL (0.30-0.70) 0.44 IU/mL (0.30-0.70) White Blood Count 12.3 x10^3/uL (4.0-11.0) 9.5 x10^3/uL (4.0-11.0) Red Blood Count 3.35 x10^6/uL (4.30-5.70) 3.29 x10^6/uL (4.30-5.70) Hemoglobin 8.3 g/dL (13.0-17.5) 8.0 g/dL (13.0-17.5) Hematocrit 26.7 % (39.0-53.0) 26.1 % (39.0-53.0) Mean Corpuscular Volume 80 fL (79-100) 79 fL (79-100) Mean Corpuscular Hemoglobin 25 pg (25-35) 24 pg (25-35) Mean Corpuscular Hemoglobin Concent 31 g/dL (31-37) 31 g/dL (31-37) Red Cell Distribution Width 17.2 % (11.5-14.5) 17.6 % (11.5-14.5) Platelet Count 260 x10^3/uL (140-400) 319 x10^3/uL (140-400) Neutrophils (%) (Auto) 73 % (31-73) 64 % (31-73) Lymphocytes (%) (Auto) 18 % (24-48) 28 % (24-48) Monocytes (%) (Auto) 6 % (0-9) 7 % (0-9) Eosinophils (%) (Auto) 2 % (0-3) 1 % (0-3) Basophils (%) (Auto) 1 % (0-3) 0 % (0-3) Neutrophils # (Auto) 9.0 x10^3/uL (1.8-7.7) 6.1 x10^3/uL (1.8-7.7) Lymphocytes # (Auto) 2.2 x10^3/uL (1.0-4.8) 2.6 x10^3/uL (1.0-4.8) Monocytes # (Auto) 0.7 x10^3/uL (0.0-1.1) 0.6 x10^3/uL (0.0-1.1) Eosinophils # (Auto) 0.3 x10^3/uL (0.0-0.7) 0.1 x10^3/uL (0.0-0.7) Basophils # (Auto) 0.1 x10^3/uL (0.0-0.2) 0.0 x10^3/uL (0.0-0.2) Sodium Level 140 mmol/L (136-145) 146 mmol/L (136-145) Potassium Level 3.7 mmol/L (3.5-5.1) 3.7 mmol/L (3.5-5.1) Chloride Level 109 mmol/L (98-107) 111 mmol/L (98-107) Carbon Dioxide Level 24 mmol/L (21-32) 26 mmol/L (21-32) Anion Gap 7 (6-14) 9 (6-14) Blood Urea Nitrogen 8 mg/dL (8-26) 6 mg/dL (8-26) Creatinine 0.9 mg/dL (0.7-1.3) 1.0 mg/dL (0.7-1.3) Estimated GFR (Cockcroft-Gault) 107.2 94.9 BUN/Creatinine Ratio 9 (6-20) Glucose Level 115 mg/dL (70-99) 83 mg/dL (70-99) Calcium Level 8.2 mg/dL (8.5-10.1) 8.6 mg/dL (8.5-10.1) Magnesium Level 2.2 mg/dL (1.8-2.4) Total Bilirubin 0.9 mg/dL (0.2-1.0) Aspartate Amino Transf (AST/SGOT) 17 U/L (15-37) Alanine Aminotransferase (ALT/SGPT) 20 U/L (16-63) Alkaline Phosphatase 77 U/L (46-116) Total Protein 6.3 g/dL (6.4-8.2) Albumin 2.2 g/dL (3.4-5.0) 2.5 g/dL (3.4-5.0) Albumin/Globulin Ratio 0.5 (1.0-1.7) O2 Saturation 98 % (92-99) Arterial Blood pH 7.42 (7.35-7.45) Arterial Blood pCO2 at Patient Temp 33 mmHg (35-46) Arterial Blood pO2 at Patient Temp 119 mmHg (75-108) Arterial Blood HCO3 21 mmol/L (21-28) Arterial Blood Base Excess -3 mmol/L (-3-3) FiO2 50%+5 Phosphorus Level 3.8 mg/dL (2.6-4.7) Test 03/23/20 07:32 O2 Saturation 98 % (92-99) Arterial Blood pH 7.40 (7.35-7.45) Arterial Blood pCO2 at Patient Temp 38 mmHg (35-46) Arterial Blood pO2 at Patient Temp 101 mmHg (75-108) Arterial Blood HCO3 23 mmol/L (21-28) Arterial Blood Base Excess -2 mmol/L (-3-3) FiO2 40 vent Laboratory Tests Test 03/23/20 05:00 03/23/20 07:32 White Blood Count 9.5 x10^3/uL (4.0-11.0) Red Blood Count 3.29 x10^6/uL (4.30-5.70) Hemoglobin 8.0 g/dL (13.0-17.5) Hematocrit 26.1 % (39.0-53.0) Mean Corpuscular Volume 79 fL (79-100) Mean Corpuscular Hemoglobin 24 pg (25-35) Mean Corpuscular Hemoglobin Concent 31 g/dL (31-37) Red Cell Distribution Width 17.6 % (11.5-14.5) Platelet Count 319 x10^3/uL (140-400) Neutrophils (%) (Auto) 64 % (31-73) Lymphocytes (%) (Auto) 28 % (24-48) Monocytes (%) (Auto) 7 % (0-9) Eosinophils (%) (Auto) 1 % (0-3) Basophils (%) (Auto) 0 % (0-3) Neutrophils # (Auto) 6.1 x10^3/uL (1.8-7.7) Lymphocytes # (Auto) 2.6 x10^3/uL (1.0-4.8) Monocytes # (Auto) 0.6 x10^3/uL (0.0-1.1) Eosinophils # (Auto) 0.1 x10^3/uL (0.0-0.7) Basophils # (Auto) 0.0 x10^3/uL (0.0-0.2) Sodium Level 146 mmol/L (136-145) Potassium Level 3.7 mmol/L (3.5-5.1) Chloride Level 111 mmol/L (98-107) Carbon Dioxide Level 26 mmol/L (21-32) Anion Gap 9 (6-14) Blood Urea Nitrogen 6 mg/dL (8-26) Creatinine 1.0 mg/dL (0.7-1.3) Estimated GFR (Cockcroft-Gault) 94.9 Glucose Level 83 mg/dL (70-99) Calcium Level 8.6 mg/dL (8.5-10.1) Phosphorus Level 3.8 mg/dL (2.6-4.7) Albumin 2.5 g/dL (3.4-5.0) O2 Saturation 98 % (92-99) Arterial Blood pH 7.40 (7.35-7.45) Arterial Blood pCO2 at Patient Temp 38 mmHg (35-46) Arterial Blood pO2 at Patient Temp 101 mmHg (75-108) Arterial Blood HCO3 23 mmol/L (21-28) Arterial Blood Base Excess -2 mmol/L (-3-3) FiO2 40 vent Microbiology 03/21/20 Gram Stain Evaluation - Final, Resulted 03/21/20 Respiratory Culture - Preliminary, Resulted 03/20/20 Blood Culture - Preliminary, Resulted NO GROWTH AFTER 2 DAYS Medications Current Medications Norepinephrine Bitartrate 8 mg/ Dextrose 258 ml @ 18.247 mls/ hr CONT PRN IV PER PROTOCOL Last administered on 03/21/20at 09:19; Start 03/20/20 at 04:15 Dopamine HCl/ Dextrose 250 ml @ 17.681 mls/ hr CONT PRN IV SEE I/O RECORD; Start 03/20/20 at 04:30 Heparin Sodium/ Dextrose 250 ml @ 0 mls/hr CONT PRN IV PER PROTOCOL Last administered on 03/21/20at 22:15; Start 03/20/20 at 04:30; Stop 03/22/20 at 10:15; Status DC Heparin Sodium (Porcine) (Heparin Sodium) 2,400 unit PRN Q6HRS PRN IV FOR UFH L EVEL LESS THAN 0.2 Last administered on 03/21/20at 14:17; Start 03/20/20 at 04:30; Stop 03/22/20 at 10:15; Status DC Fentanyl Citrate 30 ml @ 0 mls/hr CONT PRN IV SEE PROTOCOL Last administered on 03/23/20at 06:19; Start 03/20/20 at 04:45 Lorazepam (Ativan Inj) 1 mg PRN Q1HR PRN IV SEE COMMENTS; Start 03/20/20 at 04:45 Fentanyl Citrate (Fentanyl 2ml Vial) 25 mcg PRN Q1HR PRN IV SEE COMMENTS; Start 03/20/20 at 04:45 Fentanyl Citrate (Fentanyl 2ml Vial) 50 mcg PRN Q1HR PRN IV SEE COMMENTS; Start 03/20/20 at 04:45 Chlorhexidine Gluconate (Peridex) 15 ml BID MM ; Start 03/20/20 at 09:00; Stop 03/20/20 at 07:24; Status DC Famotidine (Pepcid Vial) 20 mg BID IVP Last administered on 03/20/20at 08:07; Start 03/20/20 at 09:00; Stop 03/20/20 at 12:52; Status DC Morphine Sulfate (Morphine Sulfate) 2 mg PRN Q1HR PRN IV SEE COMMENTS.; Start 03/20/20 at 04:45 Morphine Sulfate (Morphine Sulfate) 4 mg PRN Q1HR PRN IV SEE COMMENTS.; Start 03/20/20 at 04:45 Midazolam HCl 100 ml @ 0 mls/hr CONT PRN IV SEE PROTOCOL Last administered on 03/23/20at 12:24; Start 03/20/20 at 04:45 Docusate Sodium (Colace Solution) 100 mg BID NG Last administered on 03/23/20at 12:28; Start 03/20/20 at 09:00 Sodium Chloride 1,000 ml @ 75 mls/hr [id number] IV Last administered on 02/22 04/11at 23:46; Start 03/20/20 at 06:30 Acetaminophen (Tylenol) 650 mg PRN Q6HRS PRN PEG MILD PAIN / TEMP > 100.3'F Last administered on 03/23/20at 12:16; Start 03/20/20 at 09:00 Piperacillin Sod/ Tazobactam Sod (Zosyn Per Pharmacy) 1 each PRN DAILY PRN MC SEE COMMENTS; Start 03/20/20 at 09:30 Piperacillin Sod/ Tazobactam Sod 3.375 gm/Sodium Chloride 50 ml @ 100 mls/hr Q6HRS IV Last administered on 03/23/20at 12:21; Start 03/20/20 at 10:00 Magnesium Sulfate 50 ml @ 25 mls/hr 1X ONCE IV Last administered on 03/20/20at 10:21; Start 03/20/20 at 09:45; Stop 03/20/20 at 11:44; Status DC Clopidogrel Bisulfate (Plavix) 75 mg DAILYWBKFT PO Last administered on 03/23/20at 12:25; Start 03/20/20 at 12:00 Atorvastatin Calcium (Lipitor) 80 mg QHS PO Last administered on 03/22/20at 21:04; Start 03/20/20 at 21:00 Ondansetron HCl (Zofran) 4 mg PRN Q6HRS PRN IVP NAUSEA/VOMITING; Start 02/21 12/10 at 10:30 Famotidine (Pepcid Vial) 20 mg BID IVP ; Start 03/20/20 at 11:00; Stop 03/20/20 at 12:35; Status DC Info (Icu Electrolyte Protocol) 1 ea DAILY MC ; Start 03/21/20 at 09:00 Sodium Chloride (Normal Saline Flush) 3 ml QSHIFT PRN IV AFTER MEDS AND BLOOD DRAWS; Start 03/20/20 at 10:30 Pantoprazole Sodium (PROTONIX VIAL for IV PUSH) 40 mg DAILYAC IVP Last administered on 03/22/20at 08:52; Start 03/20/20 at 12:30 Potassium Bicarbonate (Potassium Effervescent Tablet) 40 meq 1X ONCE PEG Last administered on 03/20/20at 14:47; Start 03/20/20 at 14:00; Stop 03/20/20 at 14:20; Status DC Non-Formulary Medication (ABACAVIR/ DOLUTEGRAVIR/ LAMIVUDINE (Triumeq) tablet) 1 ea DAILY PO Last administered on 03/23/20at 12:19; Start 03/20/20 at 17:00 Vancomycin HCl (Vancomycin Oral Solution) 125 mg BID PO Last administered on 03/23/20at 12:21; Start 03/20/20 at 21:30 Linezolid/Dextrose 300 ml @ 300 mls/hr Q12HR IV Last administered on 03/23/20at 12:19; Start 03/21/20 at 09:00 Furosemide (Lasix) 40 mg DAILY IVP Last administered on 03/23/20at 12:17; Start 03/22/20 at 11:00 Potassium Chloride/Water 100 ml @ 50 mls/hr 1X ONCE IV Last administered on 03/22/20at 12:58; Start 03/22/20 at 10:30; Stop 03/22/20 at 12:29; Status DC Active Scripts Active Furosemide 40 Mg Tablet 40 Mg PO DAILY 90 Days Tramadol Hcl 50 Mg Tablet 50 Mg PO PRN Q6HRS PRN 6 Days Metoprolol Succinate ( Xl ) (Metoprolol Succinate) 25 Mg Tab.er.24h 12.5 Mg PO DAILY 90 Days Clopidogrel (Clopidogrel Bisulfate) 75 Mg Tablet 75 Mg PO DAILYWBKFT 90 Days Lisinopril 10 Mg Tablet 1 Tab PO DAILY 90 Days Atorvastatin Calcium 80 Mg Tablet 80 Mg PO QHS 90 Days Reported Klor-Con M20 (Potassium Chloride) 20 Meq Tab.er.prt 20 Meq PO TID Pantoprazole Sodium (Pantoprazole Sodium) 40 Mg Tablet.dr 40 Mg PO BID Duoneb 0.5-3(2.5) Mg/3 Ml (Albuterol/Ipratropium) 3 Ml Ampul.neb 3 Ml NEB PRN Q6HRS PRN Acetaminophen 325 Mg Tablet 1 Tab PO PRN Q6HRS PRN 24 Days Triumeq Tablet (Abacavir/Dolutegravir/Lamivudi) 1 Each Tablet 1 Tab PO DAILY 30 Days Gabapentin (Gabapentin) 300 Mg Capsule 100 Mg PO TID Children's Aspirin (Aspirin) 81 Mg Tab.chew 1 Tab PO DAILY 30 Days Vitals/I & O Vital Sign - Last 24 Hours 03/22/20 03/22/20 03/22/20 03/22/20 13:00 14:00 15:00 15:24 Pulse 80 88 90 Resp 20 20 20 B/P (MAP) 122/68 (86) 148/81 (103) 117/73 (88) Pulse Ox 100 100 100 100 O2 Delivery Ventilator Ventilator Ventilator Ventilator 12/31/20 12/31/20 12/31/20 12/31/20 15:36 16:00 16:00 16:06 Pulse 84 Resp 20 B/P (MAP) 99/64 (76) Pulse Ox 100 99 97 O2 Delivery Ventilator Mechanical Ventilator O2 Flow Rate 5.0 03/22/20 03/22/20 03/22/20 03/22/20 16:29 17:00 18:00 19:00 Temp 99.3 99.3 Pulse 82 73 85 Resp 20 20 20 B/P (MAP) 97/57 (70) 108/84 (92) 134/79 (97) Pulse Ox 97 99 100 O2 Delivery Mechanical Ventilator Ventilator Ventilator Ventilator 03/22/20 03/22/20 03/22/20 03/22/20 20:00 20:00 20:15 21:00 Temp 98.1 98.1 Pulse 88 110 Resp 20 20 B/P (MAP) 117/70 (86) 101/61 (74) Pulse Ox 98 100 98 O2 Delivery Mechanical Ventilator Ventilator Ventilator Ventilator 03/22/20 03/22/20 03/22/20 03/23/20 22:00 23:00 23:42 00:00 Pulse 83 90 Resp 20 20 B/P (MAP) 90/55 (67) 133/78 (96) Pulse Ox 100 100 100 O2 Delivery Ventilator Ventilator Ventilator Mechanical Ventilator 03/23/20 03/23/20 03/23/20 03/23/20 00:00 00:14 00:45 01:00 Temp 98.1 98.1 Pulse 81 74 Resp 22 22 20 20 B/P (MAP) 142/92 (109) 118/74 (89) Pulse Ox 100 100 O2 Delivery Ventilator Ventilator Ventilator Ventilator 03/23/20 03/23/20 03/23/20 03/23/20 02:00 03:00 04:00 04:00 Temp 98.1 98.1 Pulse 73 68 77 Resp 20 20 20 B/P (MAP) 112/72 (85) 108/71 (83) 134/87 (103) Pulse Ox 100 100 100 O2 Delivery Ventilator Ventilator Mechanical Ventilator Ventilator 03/23/20 03/23/20 03/23/20 03/23/20 04:11 05:00 06:00 06:19 Pulse 87 77 Resp 24 22 20 B/P (MAP) 142/95 (111) 124/80 (95) Pulse Ox 100 100 100 100 O2 Delivery Ventilator Ventilator Ventilator Ventilator 03/23/20 03/23/20 03/23/20 03/23/20 07:00 07:26 08:00 08:00 Temp 99.0 99.0 Pulse 84 82 Resp 22 22 B/P (MAP) 157/106 (123) 127/91 (103) Pulse Ox 100 100 100 O2 Delivery Ventilator Ventilator Mechanical Ventilator Ventilator 03/23/20 03/23/20 03/23/20 09:00 10:01 11:31 Pulse 80 Resp 22 B/P (MAP) 117/67 (84) Pulse Ox 100 100 99 O2 Delivery Ventilator Ventilator Ventilator Intake and Output 03/22/20 03/22/20 03/23/20 15:00 23:00 07:00 Intake Total 125 ml 959 ml Output Total 2725 ml 2125 ml 500 ml Balance -2600 ml -1166 ml -500 ml Justifications for Admission Other Justification CARDIAC ARREST YAMILE HDEZ MD Mar 23, 2020 12:46
--- NOTE | 2020-03-23 12:55 | PDOC ---
Infectious Disease Note Subjective: Subjective Patient intubated/sedated T-max 102 Vital Signs: Vital Signs Vital Signs Date Time Temp Pulse Resp B/P (MAP) Pulse Ox O2 Delivery O2 Flow Rate FiO2 03/23/20 11:31 99 Ventilator 03/23/20 10:01 03/23/20 09:00 80 22 03/23/20 08:00 99.0 99.0 03/23/20 06:49 5.0 Physical Exam: PHYSICAL EXAM GENERAL: Intubated, sedated. HEENT: Conjunctival suffusion. Pupils equal, reactive. ETT OGT present. NECK: Supple. LUNGS: Clear anteriorly. HEART: S1, S2, tachycardia. ABDOMEN: Obese, mildly distended. Bowel sounds present. EXTREMITIES: No edema or cyanosis. DERMATOLOGIC: Warm and dry. No generalized rash. NEUROLOGIC: Unable to assess. Medications: Inpatient Meds: Current Medications Medications (Trade) Dose Ordered Sig/Guy Start Time Stop Time Status Last Admin Dose Admin Acetaminophen (Tylenol) 650 mg PRN Q6HRS PRN 03/20/20 09:00 03/23/20 12:16 650 MG Atorvastatin Calcium (Lipitor) 80 mg QHS 03/20/20 21:00 03/22/20 21:04 80 MG Chlorhexidine Gluconate (Peridex) 15 ml BID 03/20/20 09:00 03/20/20 07:24 DC Clopidogrel Bisulfate (Plavix) 75 mg DAILYWBKFT 03/20/20 12:00 03/23/20 12:25 75 MG Docusate Sodium (Colace Solution) 100 mg BID 03/20/20 09:00 03/23/20 12:28 100 MG Dopamine HCl/ Dextrose 250 ml @ 17.681 mls/ hr CONT PRN 03/20/20 04:30 Famotidine (Pepcid Vial) 20 mg BID 03/20/20 11:00 03/20/20 12:35 DC Fentanyl Citrate (Fentanyl 2ml Vial) 50 mcg PRN Q1HR PRN 03/20/20 04:45 Furosemide (Lasix) 40 mg DAILY 03/22/20 11:00 03/23/20 12:17 40 MG Heparin Sodium (Porcine) (Heparin Sodium) 2,400 unit PRN Q6HRS PRN 03/20/20 04:30 03/22/20 10:15 DC 03/21/20 14:17 2,400 UNIT Heparin Sodium/ Dextrose 250 ml @ 0 mls/hr CONT PRN 03/20/20 04:30 03/22/20 10:15 DC 03/21/20 22:15 19.8 MLS/HR Info ([facility]cu Electrolyte Protocol) 1 ea DAILY 03/21/20 09:00 Linezolid/Dextrose 300 ml @ 300 mls/hr Q12HR 03/21/20 09:00 03/23/20 12:19 300 MLS/HR Lorazepam (Ativan Inj) 1 mg PRN Q1HR PRN 03/20/20 04:45 Magnesium Sulfate 50 ml @ 25 mls/hr 1X ONCE 03/20/20 09:45 03/20/20 11:44 DC 03/20/20 10:21 25 MLS/HR Midazolam HCl 100 ml @ 0 mls/hr CONT PRN 03/20/20 04:45 03/23/20 12:24 3.75 MLS/HR Morphine Sulfate (Morphine Sulfate) 4 mg PRN Q1HR PRN 03/20/20 04:45 Non-Formulary Medication (ABACAVIR/ DOLUTEGRAVIR/ LAMIVUDINE (Triumeq) tablet) 1 ea DAILY 03/20/20 17:00 03/23/20 12:19 1 EA Norepinephrine Bitartrate 8 mg/ Dextrose 258 ml @ 18.247 mls/ hr CONT PRN 03/20/20 04:15 03/21/20 09:19 5.474 MLS/HR Ondansetron HCl (Zofran) 4 mg PRN Q6HRS PRN 03/20/20 10:30 Pantoprazole Sodium (PROTONIX VIAL for IV PUSH) 40 mg DAILYAC 03/20/20 12:30 03/22/20 08:52 40 MG Piperacillin Sod/ Tazobactam Sod (Zosyn Per Pharmacy) 1 each PRN DAILY PRN 03/20/20 09:30 Piperacillin Sod/ Tazobactam Sod 3.375 gm/Sodium Chloride 50 ml @ 100 mls/hr Q6HRS 03/20/20 10:00 03/23/20 12:21 100 MLS/HR Potassium Bicarbonate (Potassium Effervescent Tablet) 40 meq 1X ONCE 03/20/20 14:00 03/20/20 14:20 DC 03/20/20 14:47 40 MEQ Potassium Chloride/Water 100 ml @ 50 mls/hr 1X ONCE 03/22/20 10:30 03/22/20 12:29 DC 03/22/20 12:58 50 MLS/HR Sodium Chloride (Normal Saline Flush) 3 ml QSHIFT PRN 03/20/20 10:30 Vancomycin HCl (Vancomycin Oral Solution) 125 mg BID 03/20/20 21:30 03/23/20 12:21 125 MG Labs: Lab Laboratory Tests Test 03/23/20 05:00 03/23/20 07:32 White Blood Count 9.5 x10^3/uL (4.0-11.0) Red Blood Count 3.29 x10^6/uL (4.30-5.70) Hemoglobin 8.0 g/dL (13.0-17.5) Hematocrit 26.1 % (39.0-53.0) Mean Corpuscular Volume 79 fL (79-100) Mean Corpuscular Hemoglobin 24 pg (25-35) Mean Corpuscular Hemoglobin Concent 31 g/dL (31-37) Red Cell Distribution Width 17.6 % (11.5-14.5) Platelet Count 319 x10^3/uL (140-400) Neutrophils (%) (Auto) 64 % (31-73) Lymphocytes (%) (Auto) 28 % (24-48) Monocytes (%) (Auto) 7 % (0-9) Eosinophils (%) (Auto) 1 % (0-3) Basophils (%) (Auto) 0 % (0-3) Neutrophils # (Auto) 6.1 x10^3/uL (1.8-7.7) Lymphocytes # (Auto) 2.6 x10^3/uL (1.0-4.8) Monocytes # (Auto) 0.6 x10^3/uL (0.0-1.1) Eosinophils # (Auto) 0.1 x10^3/uL (0.0-0.7) Basophils # (Auto) 0.0 x10^3/uL (0.0-0.2) Sodium Level 146 mmol/L (136-145) Potassium Level 3.7 mmol/L (3.5-5.1) Chloride Level 111 mmol/L (98-107) Carbon Dioxide Level 26 mmol/L (21-32) Anion Gap 9 (6-14) Blood Urea Nitrogen 6 mg/dL (8-26) Creatinine 1.0 mg/dL (0.7-1.3) Estimated GFR (Cockcroft-Gault) 94.9 Glucose Level 83 mg/dL (70-99) Calcium Level 8.6 mg/dL (8.5-10.1) Phosphorus Level 3.8 mg/dL (2.6-4.7) Albumin 2.5 g/dL (3.4-5.0) O2 Saturation 98 % (92-99) Arterial Blood pH 7.40 (7.35-7.45) Arterial Blood pCO2 at Patient Temp 38 mmHg (35-46) Arterial Blood pO2 at Patient Temp 101 mmHg (75-108) Arterial Blood HCO3 23 mmol/L (21-28) Arterial Blood Base Excess -2 mmol/L (-3-3) FiO2 40 vent Objective: Assessment: 1. Fever, likely aspiration. UA negative 2. Witnessed cardiac arrest, status post defibrillation. 3. Leukocytosis and lactic acidosis. 4. Human immunodeficiency virus, CD4 was 403 on 01/16 viral load less than 20 on 01/23on Triumeq. 5. Acute hypoxic respiratory failure 6. History of ventricular tachycardia, Coronary artery disease, status post PCI. 7. Status post pacemaker for bradycardia 12/27 at [facility]. 8. History of acute kidney injury, on hemodialysis in the past. 9. 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 10. Substance dependence. UDS positive for cocaine at outside hospital. 11. Hypertension/hyperlipidemia 12. Hypokalemia/hypomagnesemia. 13. H/O Chronic systolic congestive heart failure. 14. History of rectal abscess. 15. History of Necrotizing Pneumonia with Klebsiella at [facility] November 2019 Plan: Plan of Care Continue Zosyn,Zyvox Continue p.o. vancomycin for prophylaxis with history of recurrent C. difficile Continue Triumeq Follow up labs and cultures. Critically ill. Discussed with nursing. MILLY NICOLE MD Mar 23, 2020 12:55
[2020-03-23] MEDS: IV NORMAL SALINE 1000ML BAG 1,000 ML IV SCH (14:30)
[2020-03-23] MEDS: fentaNYL HIGH DOSE PCA 55 ML IV PRN (20:32)
[2020-03-23] MEDS ORDERED: IV NORMAL SALINE 500ML BAG 500 ML IV PRN (21:00)
[2020-03-23] MEDS ORDERED: ATROPINE 0.5 MG/5 ML DISP.SYRINGE. IV PRN (21:00)
[2020-03-23] MEDS: DEXMEDETOMIDINE 400 MCG in IV NORMAL SALINE 100ML 96 ML IV PRN (21:00)
[2020-03-23] MEDS ORDERED: HALOPERIDOL LACTATE 5 MG/ML VIAL. IVP PRN (21:00)
[2020-03-23] MEDS: ATORVASTATIN CALCIUM 40 MG TABLET. PO SCH (21:02)
[2020-03-24] VITALS (24 sets, daily range): BP systolic 85–154; BP diastolic 50–91
[2020-03-24] MEDS: DEXMEDETOMIDINE 400 MCG in IV NORMAL SALINE 100ML 96 ML IV PRN (03:33)
[2020-03-24] MEDS: IV NORMAL SALINE 1000ML BAG 1,000 ML IV SCH ×2 (03:50→09:19)
[2020-03-24] MEDS: PIPERACILLIN/TAZOBACTAM 3.375 GM in IV NORMAL SALINE 50ML 50 ML IV SCH ×4 (06:06→23:41)
[2020-03-24] MEDS: MIDAZOLAM 100mg/100ml NS BAG 100 ML IV PRN ×2 (08:25→17:12)
--- NOTE | 2020-03-24 08:54 | PDOC ---
PULMONARY PROGRESS NOTES DATE: 03/24/20 TIME: 08:47 Subjective Patient remains on vent support assist-control mode 35% and a PEEP of 5 No other concerns from nursing at this time Vitals Vital Signs Date Time Temp Pulse Resp B/P (MAP) Pulse Ox O2 Delivery O2 Flow Rate FiO2 03/24/20 06:00 69 20 132/76 (94) 98 Ventilator 03/24/20 04:00 98.3 98.3 Comments Intubated/sedated Lungs: Clear Extremities: No Edema Labs Laboratory Tests Test 03/23/20 05:00 03/23/20 07:32 White Blood Count 9.5 x10^3/uL (4.0-11.0) Red Blood Count 3.29 x10^6/uL (4.30-5.70) Hemoglobin 8.0 g/dL (13.0-17.5) Hematocrit 26.1 % (39.0-53.0) Mean Corpuscular Volume 79 fL (79-100) Mean Corpuscular Hemoglobin 24 pg (25-35) Mean Corpuscular Hemoglobin Concent 31 g/dL (31-37) Red Cell Distribution Width 17.6 % (11.5-14.5) Platelet Count 319 x10^3/uL (140-400) Neutrophils (%) (Auto) 64 % (31-73) Lymphocytes (%) (Auto) 28 % (24-48) Monocytes (%) (Auto) 7 % (0-9) Eosinophils (%) (Auto) 1 % (0-3) Basophils (%) (Auto) 0 % (0-3) Neutrophils # (Auto) 6.1 x10^3/uL (1.8-7.7) Lymphocytes # (Auto) 2.6 x10^3/uL (1.0-4.8) Monocytes # (Auto) 0.6 x10^3/uL (0.0-1.1) Eosinophils # (Auto) 0.1 x10^3/uL (0.0-0.7) Basophils # (Auto) 0.0 x10^3/uL (0.0-0.2) Sodium Level 146 mmol/L (136-145) Potassium Level 3.7 mmol/L (3.5-5.1) Chloride Level 111 mmol/L (98-107) Carbon Dioxide Level 26 mmol/L (21-32) Anion Gap 9 (6-14) Blood Urea Nitrogen 6 mg/dL (8-26) Creatinine 1.0 mg/dL (0.7-1.3) Estimated GFR (Cockcroft-Gault) 94.9 Glucose Level 83 mg/dL (70-99) Calcium Level 8.6 mg/dL (8.5-10.1) Phosphorus Level 3.8 mg/dL (2.6-4.7) Albumin 2.5 g/dL (3.4-5.0) O2 Saturation 98 % (92-99) Arterial Blood pH 7.40 (7.35-7.45) Arterial Blood pCO2 at Patient Temp 38 mmHg (35-46) Arterial Blood pO2 at Patient Temp 101 mmHg (75-108) Arterial Blood HCO3 23 mmol/L (21-28) Arterial Blood Base Excess -2 mmol/L (-3-3) FiO2 40 vent Medications Active Scripts Medications Dose Route/Sig Max Daily Dose Days Date Category Furosemide 40 Mg Tablet 40 Mg PO DAILY 02/02/20 Rx Tramadol Hcl 50 Mg Tablet 50 Mg PO PRN Q6HRS PRN 6 02/02/20 Rx Metoprolol Succinate ( Xl ) (Metoprolol Succinate) 25 Mg Tab.er.24h 12.5 Mg PO DAILY 02/02/20 Rx Clopidogrel (Clopidogrel Bisulfate) 75 Mg Tablet 75 Mg PO DAILYWBKFT 02/02/20 Rx Lisinopril 10 Mg Tablet 1 Tab PO DAILY 02/02/20 Rx Atorvastatin Calcium 80 Mg Tablet 80 Mg PO QHS 02/02/20 Rx Klor-Con M20 (Potassium Chloride) 20 Meq Tab.er.prt 20 Meq PO TID 01/31/20 Reported Pantoprazole Sodium (Pantoprazole Sodium) 40 Mg Tablet.dr 40 Mg PO BID 01/31/20 Reported Duoneb 0.5-3(2.5) Mg/3 Ml (Albuterol/Ipratropium) 3 Ml Ampul.neb 3 Ml NEB PRN Q6HRS PRN 01/31/20 Reported Acetaminophen 325 Mg Tablet 1 Tab PO PRN Q6HRS PRN 24 01/31/20 Reported Triumeq Tablet (Abacavir/Dolutegravir/Lamivudi) 1 Each Tablet 1 Tab PO DAILY 30 01/31/20 Reported Gabapentin (Gabapentin) 300 Mg Capsule 100 Mg PO TID 01/31/20 Reported Children's Aspirin (Aspirin) 81 Mg Tab.chew 1 Tab PO DAILY 30 01/31/20 Reported Comments CXR IMPRESSION: Aeration of the lungs appears similar to the prior examination. Support lines and tubes are in similar position. Impression . IMPRESSION: 1. Acute hypoxemic respiratory failure secondary to [id number] cardiopulmonary arrest. 2. History of ventricular fibrillation with previous [id number] cardiac arrest. 3. History of coronary artery disease, status post percutaneous coronary intervention to the circumflex. 4. History of gastrointestinal bleed. 5. Chronic systolic heart failure. 6. Ischemic cardiomyopathy, ejection fraction 20-25%. 7. Status post pacemaker implantation. 8. Hypertension. 9. Hypokalemia. 10. Previous kidney injury requiring hemodialysis. 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 12. Human immunodeficiency virus. 13. Polysubstance use. Plan . Continue current ventilatory support FiO2 35% and a PEEP of 5 Follow chest x-ray as needed/ABG make changes as needed Sedation vacation daily, and pressure support as tolerated, planned for extubation on thursday Continue empiric antibiotics per infectious disease Follow other cardiology recommendations Tube feeding remains on hold per GI---follow other GI recommendations DVT/GI prophylaxis Discussed with RN and RT Critical care time [id number] DAMIÁN HASTINGS MD Mar 24, 2020 08:54
[2020-03-24] MEDS: ELECTROLYTE (ICU) PROTOCOL. MC SCH (09:00)
[2020-03-24] MEDS: DOCUSATE 100 MG/10 ML SOLUTION. NG SCH ×2 (09:00→20:45)
[2020-03-24] MEDS ORDERED: PROPOFOL 100 ML IV PRN (09:00)
[2020-03-24] MEDS: CLOPIDOGREL BISULFATE 75 MG TABLET PO SCH (09:01)
[2020-03-24] MEDS: PANTOPRAZOLE IV PUSH 40 MG VIAL. IVP SCH (09:01)
[2020-03-24] MEDS: VANCOMYCIN 125 MG/2.5 ML ORAL SOLUTION. PO SCH ×2 (09:01→20:45)
[2020-03-24] MEDS: FUROSEMIDE 40 MG/4 ML VIAL. IVP SCH (09:01)
[2020-03-24] MEDS: fentaNYL HIGH DOSE PCA 55 ML IV PRN ×2 (09:02→21:26)
[2020-03-24] MEDS: DOLUTEGRAVIR PO SCH (09:03)
[2020-03-24] MEDS: LAMIVUDINE PO SCH (09:03)
[2020-03-24] MEDS: ABACAVIR PO SCH (09:03)
[2020-03-24 09:37] LABS: BASE EXCESS ABG -1 mmol/L (-3-3); HCO3 ABG 23 mmol/L (21-28); PCO2 ABG 35 mmHg (35-46); PO2 ABG 109 mmHg (75-108); SAT O2 ABG 98 % (92-99)
--- NOTE | 2020-03-24 10:18 | PDOC ---
PROGRESS NOTES Date of Service: DATE: 03/24/20 TIME: 10:18 Chief Complaint Chief Complaint VTE Prophylaxis Ordered VTE Prophylaxis Devices: Yes VTE Pharmacological Prophylaxi: Yes Assessment/Plan Assessment/Plan ASSESSMENT 1. out of hospital arrest , witness cardiac arrest; Defibrillation // AMI ruled out. 2. H/o Vfib probable ischemic in nature, antiarrhythmics discontinued in past due to QTc prolongation of 600. 3. Acute hypoxic respiratory failure requiring vent support 4. CAD s/p PCI/BMS to the LCx 12/11/19. Treated with ASA,Brilinta initially, which was held due to recurrent GIB requiring transfusions.Due to recent PCI/BMS, Plavix was resumed while at [facility] ASA was d/c'd 5. Chronic systolic CHF 6. ischemic cardiomyopathy LVEF 20-25%. 7. SSS s/p leadless PPM 8. Hypertension; // requiring pressor support 9. Hypokalemia, hypomagnesemia 10. H/o DAIJA requiringHD; renal function improvedand HD catheter removed 11. 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 HIV 13. Substance abuse; UDS + cocaine , ALCOHOL, TOBACCO 14. Leukocytosis, fevers. ? sepsis Covid negative. 15. H/o Vfib OOH arrest; probable ischemic in nature, antiarrhythmics discontinued in past due to QTc prolongation of 600. EKG at [facility] with QTc 507, 528. 16. Human immunodeficiency virus, CD4 was 403 on 01/16 viral load less than 20 on 01/23on [facility]. 17. History of ventricular tachycardia, Coronary artery disease, status post PCI. 18. Status post pacemaker for bradycardia 12/27 at [place]. plan icu bed cardiology consult pulm consult Device interrogation Replace Mg, lytes Secondary prevention measures as able Resume Plavix. No ASA due to recent GIB Monitor LFTs Pressor support; wean as able Hold lisinopril, Toprol with hypotension Echo vent management GI CONSULT COVID 19 SCREEN vent support assist-control mode 50% and PEEP of 5 On heparin drip per cardiology hiv screen Echo to assess LV systolic function if COVID PCR negative Tube feeding on hold per GI, concern for ileus follow other GI recommendations vent support assist-control mode 40% and a PEEP of 5 Continue Zosyn,Zyvox Continue p.o. vancomycin for prophylaxis with history of recurrent C. difficile Continue Triumeq Follow up labs and cultures. prognosis very guarded 37 MIN CC TIME History of Present Illness History of Present Illness Identification/Chief Complaint Chief Complaint admitted to icu , out of hospial arrest CAD s/p PCI/stent, cardiomyopathy, and prior cardiac arrest, presented secondary to cardiac arrest at home. Was at home with partner, Stevenson, watching television. Patient suddenly started breathing more deeply and began gasping for air. Eyes were wide and glassy. Was unresponsive. Partner was unable to feel pulse so he put him on the floor, called EMS and be elizabeth chest compressions. Partner reports him drinking 3 malt beverages that evening while watching TV. No known sick contacts. EMS arrived within minutes. ROSC returned following one defibrillation. Although partner declined drug use, Narcan was administered en route due to pinpoint pupils. Limited effect from the Narcan. UDS was + for cocaine. IS COVID 19 PUI hx cardiac arrest on December 19, 2019. Patient was apparently found arrest in his car EMS noted in v-fib. ROSC was achieved following 1 defibrillation and 1 round of epi.//activated as STEMI with LBBB. Emergent cath notable for blockage of left circumflex. //PCI/BMS to the Left circumflex. 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 LVEF noted at 20-25%. Developed DAIJA due to cardiogenic shock. had multiple episodes of bradycardia/significant pauses mostly related to suctioning. then leadlessPPM placement.Treated for Klebsiella PNA as well. course further complicated by GIB requiring tranfusion. 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 Past Medical History Past Medical History PAST MEDICAL HISTORY Past Medical History HIV, HTN, CAD s/p PCI/BMS to the LCx, GIB from arteriovenous malformation, esophagitis, gastritis, DAIJA requiring HD, bradycardia s/p Leadless PPM PAST SURGICAL HISTORY Past Surgical History: Pacemaker, Tonsillectomy, Other (PCI/stent ) FAMILY HISTORY Family History Other (no pertinent history) SOCIAL HISTORY Social History Smoke: <1 pack per day ALCOHOL: none Drugs: None Lives: with Family (with partner ) Cardiovascular: CAD, HTN, Hyperlipidemia Infectious disease: HIV Past Surgical History Past Surgical History: Pacemaker Family History Family History: Hypertension, Other Social History Smoke: <1 pack per day ALCOHOL: occassional Drugs: None, Cocaine Vitals Vitals Vital Signs Date Time Temp Pulse Resp B/P (MAP) Pulse Ox O2 Delivery O2 Flow Rate FiO2 03/24/20 10:00 65 20 98/58 (71) 94 Ventilator 03/24/20 08:00 98.1 98.1 Physical Exam Physical Exam GENERAL: Intubated, sedated. HEENT: Conjunctival suffusion. Pupils equal, reactive. ETT OGT present. NECK: Supple. LUNGS: Clear anteriorly. HEART: S1, S2, tachycardia. ABDOMEN: Obese, mildly distended. Bowel sounds present. EXTREMITIES: No edema or cyanosis. DERMATOLOGIC: Warm and dry. No generalized rash. NEUROLOGIC: Unable to assess. General: Other (Intubated.) Heart: Regular rate Lungs: Clear Abdomen: Normal bowel sounds Extremities: No edema, Normal pulses Skin: No significant lesion Comment Review of Relevant I have reviewed the following items joel (where applicable) has been applied. Labs Laboratory Tests Test 03/23/20 05:00 03/23/20 07:32 White Blood Count 9.5 x10^3/uL (4.0-11.0) Red Blood Count 3.29 x10^6/uL (4.30-5.70) Hemoglobin 8.0 g/dL (13.0-17.5) Hematocrit 26.1 % (39.0-53.0) Mean Corpuscular Volume 79 fL (79-100) Mean Corpuscular Hemoglobin 24 pg (25-35) Mean Corpuscular Hemoglobin Concent 31 g/dL (31-37) Red Cell Distribution Width 17.6 % (11.5-14.5) Platelet Count 319 x10^3/uL (140-400) Neutrophils (%) (Auto) 64 % (31-73) Lymphocytes (%) (Auto) 28 % (24-48) Monocytes (%) (Auto) 7 % (0-9) Eosinophils (%) (Auto) 1 % (0-3) Basophils (%) (Auto) 0 % (0-3) Neutrophils # (Auto) 6.1 x10^3/uL (1.8-7.7) Lymphocytes # (Auto) 2.6 x10^3/uL (1.0-4.8) Monocytes # (Auto) 0.6 x10^3/uL (0.0-1.1) Eosinophils # (Auto) 0.1 x10^3/uL (0.0-0.7) Basophils # (Auto) 0.0 x10^3/uL (0.0-0.2) Sodium Level 146 mmol/L (136-145) Potassium Level 3.7 mmol/L (3.5-5.1) Chloride Level 111 mmol/L (98-107) Carbon Dioxide Level 26 mmol/L (21-32) Anion Gap 9 (6-14) Blood Urea Nitrogen 6 mg/dL (8-26) Creatinine 1.0 mg/dL (0.7-1.3) Estimated GFR (Cockcroft-Gault) 94.9 Glucose Level 83 mg/dL (70-99) Calcium Level 8.6 mg/dL (8.5-10.1) Phosphorus Level 3.8 mg/dL (2.6-4.7) Albumin 2.5 g/dL (3.4-5.0) O2 Saturation 98 % (92-99) Arterial Blood pH 7.40 (7.35-7.45) Arterial Blood pCO2 at Patient Temp 38 mmHg (35-46) Arterial Blood pO2 at Patient Temp 101 mmHg (75-108) Arterial Blood HCO3 23 mmol/L (21-28) Arterial Blood Base Excess -2 mmol/L (-3-3) FiO2 40 vent Microbiology 03/21/20 Gram Stain Evaluation - Final, Resulted 03/21/20 Respiratory Culture - Preliminary, Resulted 03/20/20 Blood Culture - Preliminary, Resulted NO GROWTH AFTER 3 DAYS Medications Current Medications Norepinephrine Bitartrate 8 mg/ Dextrose 258 ml @ 18.247 mls/ hr CONT PRN IV PER PROTOCOL Last administered on 03/21/20at 09:19; Start 03/20/20 at 04:15 Dopamine HCl/ Dextrose 250 ml @ 17.681 mls/ hr CONT PRN IV SEE I/O RECORD; Start 03/20/20 at 04:30 Heparin Sodium/ Dextrose 250 ml @ 0 mls/hr CONT PRN IV PER PROTOCOL Last administered on 03/21/20at 22:15; Start 03/20/20 at 04:30; Stop 03/22/20 at 10:15; Status DC Heparin Sodium (Porcine) (Heparin Sodium) 2,400 unit PRN Q6HRS PRN IV FOR UFH LEVEL LESS THAN 0.2 Last administered on 03/21/20at 14:17; Start 03/20/20 at 04:30; Stop 03/22/20 at 10:15; Status DC Fentanyl Citrate 30 ml @ 0 mls/hr CONT PRN IV SEE PROTOCOL Last administered on 03/23/20at 06:19; Start 03/20/20 at 04:45; Stop 03/23/20 at 19:11; Status DC Lorazepam (Ativan Inj) 1 mg PRN Q1HR PRN IV SEE COMMENTS; Start 03/20/20 at 04:45 Fentanyl Citrate (Fentanyl 2ml Vial) 25 mcg PRN Q1HR PRN IV SEE COMMENTS; Start 03/20/20 at 04:45 Fentanyl Citrate (Fentanyl 2ml Vial) 50 mcg PRN Q1HR PRN IV SEE COMMENTS; Start 03/20/20 at 04:45 Chlorhexidine Gluconate (Peridex) 15 ml BID MM ; Start 03/20/20 at 09:00; Stop 03/20/20 at 07:24; Status DC Famotidine (Pepcid Vial) 20 mg BID IVP Last administered on 03/20/20at 08:07; Start 03/20/20 at 09:00; Stop 03/20/20 at 12:52; Status DC Morphine Sulfate (Morphine Sulfate) 2 mg PRN Q1HR PRN IV SEE COMMENTS.; Start 03/20/20 at 04:45 Morphine Sulfate (Morphine Sulfate) 4 mg PRN Q1HR PRN IV SEE COMMENTS.; Start 03/20/20 at 04:45 Midazolam HCl 100 ml @ 0 mls/hr CONT PRN IV SEE PROTOCOL Last administered on 03/24/20at 08:25; Start 03/20/20 at 04:45 Docusate Sodium (Colace Solution) 100 mg BID NG Last administered on 03/24/20 09:00; Start 03/20/20 at 09:00 Sodium Chloride 1,000 ml @ 75 mls/hr [id number] IV Last administered on 03/24/20 09:19; Start 03/20/20 at 06:30 Acetaminophen (Tylenol) 650 mg PRN Q6HRS PRN PEG MILD PAIN / TEMP > 100.3'F Last administered on 03/23/20at 12:16; Start 03/20/20 at 09:00 Piperacillin Sod/ Tazobactam Sod (Zosyn Per Pharmacy) 1 each PRN DAILY PRN MC SEE COMMENTS; Start 03/20/20 at 09:30 Piperacillin Sod/ Tazobactam Sod 3.375 gm/Sodium Chloride 50 ml @ 100 mls/hr Q6HRS IV Last administered on 03/24/20 06:06; Start 03/20/20 at 10:00 Magnesium Sulfate 50 ml @ 25 mls/hr 1X ONCE IV Last administered on 03/20/20at 10:21; Start 03/20/20 at 09:45; Stop 03/20/20 at 11:44; Status DC Clopidogrel Bisulfate (Plavix) 75 mg DAILYWBKFT PO Last administered on 03/24/20 09:01; Start 03/20/20 at 12:00 Atorvastatin Calcium (Lipitor) 80 mg QHS PO Last administered on 03/23/20at 21:02; Start 03/20/20 at 21:00 Ondansetron HCl (Zofran) 4 mg PRN Q6HRS PRN IVP NAUSEA/VOMITING; Start 03/20/20 at 10:30 Famotidine (Pepcid Vial) 20 mg BID IVP ; Start 03/20/20 at 11:00; Stop 03/20/20 at 12:35; Status DC Info (Icu Electrolyte Protocol) 1 ea DAILY MC ; Start 03/21/20 at 09:00 Sodium Chloride (Normal Saline Flush) 3 ml QSHIFT PRN IV AFTER MEDS AND BLOOD DRAWS; Start 03/20/20 at 10:30 Pantoprazole Sodium (PROTONIX VIAL for IV PUSH) 40 mg DAILYAC IVP Last administered on 03/24/20 09:01; Start 03/20/20 at 12:30 Potassium Bicarbonate (Potassium Effervescent Tablet) 40 meq 1X ONCE PEG Last administered on 03/20/20at 14:47; Start 03/20/20 at 14:00; Stop 03/20/20 at 14:20; Status DC Non-Formulary Medication (ABACAVIR/ DOLUTEGRAVIR/ LAMIVUDINE (Triumeq) tablet) 1 ea DAILY PO Last administered on 03/24/20 09:03; Start 03/20/20 at 17:00 Vancomycin HCl (Vancomycin Oral Solution) 125 mg BID PO Last administered on 03/24/20at 09:01; Start 03/20/20 at 21:30 Linezolid/Dextrose 300 ml @ 300 mls/hr Q12HR IV Last administered on 03/24/20at 09:01; Start 03/21/20 at 09:00 Furosemide (Lasix) 40 mg DAILY IVP Last administered on 03/24/20at 09:01; Start 03/22/20 at 11:00 Potassium Chloride/Water 100 ml @ 50 mls/hr 1X ONCE IV Last administered on 03/22/20at 12:58; Start 03/22/20 at 10:30; Stop 03/22/20 at 12:29; Status DC Fentanyl Citrate 55 ml @ 0 mls/hr CONT PRN IV SEE PROTOCOL Last administered on 03/24/20at 09:02; Start 03/23/20 at 19:15 Dexmedetomidine HCl 400 mcg/ Sodium Chloride 100 ml @ 0 mls/hr CONT PRN IV PER PROTOCOL Last administered on 03/24/20at 03:33; Start 03/23/20 at 21:00; Stop 03/24/20 at 08:52; Status DC Sodium Chloride 500 ml @ 500 mls/hr 1X PRN PRN IV SEE COMMENTS; Start 03/23/20 at 21:00 Atropine Sulfate (ATROPINE 0.5mg SYRINGE) 0.5 mg PRN Q5MIN PRN IV SEE COMMENTS; Start 03/23/20 at 21:00 Haloperidol Lactate (Haldol Inj) 5 mg PRN Q6HRS PRN IVP AGITATION; Start 03/23/20 at 21:00; Stop 03/24/20 at 08:52; Status DC Propofol 100 ml @ 2.748 mls/ hr CONT PRN IV PER PROTOCOL; Start 03/24/20 at 09:00 Active Scripts Active Furosemide 40 Mg Tablet 40 Mg PO DAILY 90 Days Tramadol Hcl 50 Mg Tablet 50 Mg PO PRN Q6HRS PRN 6 Days Metoprolol Succinate ( Xl ) (Metoprolol Succinate) 25 Mg Tab.er.24h 12.5 Mg PO DAILY 90 Days Clopidogrel (Clopidogrel Bisulfate) 75 Mg Tablet 75 Mg PO DAILYWBKFT 90 Days Lisinopril 10 Mg Tablet 1 Tab PO DAILY 90 Days Atorvastatin Calcium 80 Mg Tablet 80 Mg PO QHS 90 Days Reported Klor-Con M20 (Potassium Chloride) 20 Meq Tab.er.prt 20 Meq PO TID Pantoprazole Sodium (Pantoprazole Sodium) 40 Mg Tablet.dr 40 Mg PO BID Duoneb 0.5-3(2.5) Mg/3 Ml (Albuterol/Ipratropium) 3 Ml Ampul.neb 3 Ml NEB PRN Q6HRS PRN Acetaminophen 325 Mg Tablet 1 Tab PO PRN Q6HRS PRN 24 Days Triumeq Tablet (Abacavir/Dolutegravir/Lamivudi) 1 Each Tablet 1 Tab PO DAILY 30 Days Gabapentin (Gabapentin) 300 Mg Capsule 100 Mg PO TID Children's Aspirin (Aspirin) 81 Mg Tab.chew 1 Tab PO DAILY 30 Days Vitals/I & O Vital Sign - Last 24 Hours 03/23/20 03/23/20 03/23/20 03/23/20 11:00 11:31 12:00 15:00 Temp 100.0 100.0 Pulse 82 84 Resp B/P (MAP) 138/83 (101) 167/114 (131) Pulse Ox 100 99 100 O2 Delivery Ventilator Ventilator Mechanical Ventilator Ventilator 03/23/20 03/23/20 03/23/20 03/23/20 15:15 16:00 16:00 17:00 Temp 99.3 99.3 Pulse 74 72 Resp 22 B/P (MAP) 113/69 (84) 82/50 (61) Pulse Ox 99 97 97 O2 Delivery Ventilator Ventilator Mechanical Ventilator Ventilator 03/23/20 03/23/20 03/23/20 03/23/20 18:00 19:00 20:00 20:00 Temp 98.7 98.7 Pulse 72 87 96 Resp 22 20 20 B/P (MAP) 94/50 (65) 125/65 (85) 141/75 (97) Pulse Ox 97 100 100 O2 Delivery Ventilator Ventilator Mechanical Ventilator Ventilator 03/23/20 03/23/20 03/23/20 03/23/20 20:00 20:32 21:00 21:04 Pulse 98 Resp 20 20 22 B/P (MAP) 130/89 (103) Pulse Ox 99 98 O2 Delivery Ventilator Ventilator Ventilator Ventilator 03/23/20 03/23/20 03/24/20 03/24/20 22:00 23:00 00:00 00:00 Temp 98.4 98.4 Pulse 70 88 95 Resp 20 22 26 B/P (MAP) 100/61 (74) 123/86 (98) 154/91 (112) Pulse Ox 98 100 100 O2 Delivery Ventilator Ventilator Mechanical Ventilator Ventilator 03/24/20 03/24/20 03/24/20 03/24/20 00:21 01:00 02:00 03:00 Pulse 84 92 70 Resp 26 20 20 B/P (MAP) 138/75 (96) 124/70 (88) 120/75 (90) Pulse Ox 98 98 97 99 O2 Delivery Ventilator Ventilator Ventilator Ventilator 03/24/20 03/24/20 03/24/20 03/24/20 04:00 04:00 04:10 05:00 Temp 98.3 98.3 Pulse 72 78 Resp 20 20 B/P (MAP) 147/83 (104) 149/82 (104) Pulse Ox 99 99 98 O2 Delivery Mechanical Ventilator Ventilator Ventilator Ventilator 03/24/20 03/24/20 03/24/20 03/24/20 06:00 07:00 08:00 08:00 Temp 98.1 98.1 Pulse 69 68 68 Resp 20 20 20 B/P (MAP) 132/76 (94) 132/76 (94) 144/85 (104) Pulse Ox 98 99 100 O2 Delivery Ventilator Ventilator Ventilator Mechanical Ventilator 03/24/20 03/24/20 03/24/20 09:00 09:02 10:00 Pulse 66 65 Resp 20 20 20 B/P (MAP) 147/87 (107) 98/58 (71) Pulse Ox 100 100 94 O2 Delivery Ventilator Ventilator Ventilator Intake and Output 03/23/20 03/23/20 03/24/20 15:00 23:00 07:00 Intake Total 0 ml 1324 ml Output Total 1405 ml 2420 ml 820 ml Balance -1405 ml -1096 ml -820 ml Justicifation of Admission Dx: Justifications for Admission: Justification of Admission Dx: Yes GLADYS FAUSTIN MD Mar 24, 2020 10:18
[2020-03-24 10:37] LABS: FIO2 ABG 40% VENT
--- NOTE | 2020-03-24 12:27 | PDOC ---
Infectious Disease Note Subjective: Subjective Patient intubated/sedated No fevers last 24 hours No acute issues per discussion with RN Vital Signs: Vital Signs Vital Signs Date Time Temp Pulse Resp B/P (MAP) Pulse Ox O2 Delivery O2 Flow Rate FiO2 03/24/20 11:30 96 Ventilator 03/24/20 10:00 65 20 98/58 (71) 03/24/20 08:00 98.1 98.1 Physical Exam: PHYSICAL EXAM GENERAL: Intubated, sedated. HEENT: Conjunctival suffusion. Pupils equal, reactive. ETT OGT present. NECK: Supple. LUNGS: Clear anteriorly. HEART: S1, S2, tachycardia. ABDOMEN: Obese, mildly distended. Bowel sounds present. EXTREMITIES: No edema or cyanosis. DERMATOLOGIC: Warm and dry. No generalized rash. NEUROLOGIC: Unable to assess. Medications: Inpatient Meds: Current Medications Medications (Trade) Dose Ordered Sig/Guy Start Time Stop Time Status Last Admin Dose Admin Acetaminophen (Tylenol) 650 mg PRN Q6HRS PRN 03/20/20 09:00 03/23/20 12:16 650 MG Atorvastatin Calcium (Lipitor) 80 mg QHS 03/20/20 21:00 03/23/20 21:02 80 MG Atropine Sulfate (ATROPINE 0.5mg SYRINGE) 0.5 mg PRN Q5MIN PRN 03/23/20 21:00 Chlorhexidine Gluconate (Peridex) 15 ml BID 03/20/20 09:00 03/20/20 07:24 DC Clopidogrel Bisulfate (Plavix) 75 mg DAILYWBKFT 03/20/20 12:00 03/24/20 09:01 75 MG Dexmedetomidine HCl 400 mcg/ Sodium Chloride 100 ml @ 0 mls/hr CONT PRN 03/23/20 21:00 03/24/20 08:52 DC 03/24/20 03:33 11.4 MLS/HR Docusate Sodium (Colace Solution) 100 mg BID 03/20/20 09:00 03/24/20 09:00 100 MG Dopamine HCl/ Dextrose 250 ml @ 17.681 mls/ hr CONT PRN 03/20/20 04:30 Famotidine (Pepcid Vial) 20 mg BID 03/20/20 11:00 03/20/20 12:35 DC Fentanyl Citrate 55 ml @ 0 mls/hr CONT PRN 03/23/20 19:15 03/24/20 09:02 4 MLS/HR Fentanyl Citrate (Fentanyl 2ml Vial) 50 mcg PRN Q1HR PRN 03/20/20 04:45 Furosemide (Lasix) 40 mg DAILY 03/22/20 11:00 03/24/20 09:01 40 MG Haloperidol Lactate (Haldol Inj) 5 mg PRN Q6HRS PRN 03/23/20 21:00 03/24/20 08:52 DC Heparin Sodium (Porcine) (Heparin Sodium) 2,400 unit PRN Q6HRS PRN 03/20/20 04:30 03/22/20 10:15 DC 03/21/20 14:17 2,400 UNIT Heparin Sodium/ Dextrose 250 ml @ 0 mls/hr CONT PRN 03/20/20 04:30 03/22/20 10:15 DC 03/21/20 22:15 19.8 MLS/HR Info (Icu Electrolyte Protocol) 1 ea DAILY 03/21/20 09:00 Linezolid/Dextrose 300 ml @ 300 mls/hr Q12HR 03/21/20 09:00 03/24/20 09:01 300 MLS/HR Lorazepam (Ativan Inj) 1 mg PRN Q1HR PRN 03/20/20 04:45 Magnesium Sulfate 50 ml @ 25 mls/hr 1X ONCE 03/20/20 09:45 03/20/20 11:44 DC 03/20/20 10:21 25 MLS/HR Midazolam HCl 100 ml @ 0 mls/hr CONT PRN 03/20/20 04:45 03/24/20 08:25 10 MLS/HR Morphine Sulfate (Morphine Sulfate) 4 mg PRN Q1HR PRN 03/20/20 04:45 Non-Formulary Medication (ABACAVIR/ DOLUTEGRAVIR/ LAMIVUDINE (Triumeq) tablet) 1 ea DAILY 03/20/20 17:00 03/24/20 09:03 1 EA Norepinephrine Bitartrate 8 mg/ Dextrose 258 ml @ 18.247 mls/ hr CONT PRN 03/20/20 04:15 03/21/20 09:19 5.474 MLS/HR Ondansetron HCl (Zofran) 4 mg PRN Q6HRS PRN 03/20/20 10:30 Pantoprazole Sodium (PROTONIX VIAL for IV PUSH) 40 mg DAILYAC 03/20/20 12:30 03/24/20 09:01 40 MG Piperacillin Sod/ Tazobactam Sod (Zosyn Per Pharmacy) 1 each PRN DAILY PRN 03/20/20 09:30 Piperacillin Sod/ Tazobactam Sod 3.375 gm/Sodium Chloride 50 ml @ 100 mls/hr Q6HRS 03/20/20 10:00 03/24/20 06:06 100 MLS/HR Potassium Bicarbonate (Potassium Effervescent Tablet) 40 meq 1X ONCE 03/20/20 14:00 03/20/20 14:20 DC 03/20/20 14:47 40 MEQ Potassium Chloride/Water 100 ml @ 50 mls/hr 1X ONCE 03/22/20 10:30 03/22/20 12:29 DC 03/22/20 12:58 50 MLS/HR Propofol 100 ml @ 2.748 mls/ hr CONT PRN 03/24/20 09:00 Sodium Chloride 500 ml @ 500 mls/hr 1X PRN PRN 03/23/20 21:00 Sodium Chloride (Normal Saline Flush) 3 ml QSHIFT PRN 03/20/20 10:30 Vancomycin HCl (Vancomycin Oral Solution) 125 mg BID 03/20/20 21:30 03/24/20 09:01 125 MG Labs: Lab Laboratory Tests Test 03/24/20 08:45 O2 Saturation 98 % (92-99) Arterial Blood pH 7.43 (7.35-7.45) Arterial Blood pCO2 at Patient Temp 35 mmHg (35-46) Arterial Blood pO2 at Patient Temp 109 mmHg (75-108) Arterial Blood HCO3 23 mmol/L (21-28) Arterial Blood Base Excess -1 mmol/L (-3-3) FiO2 40% vent Objective: Assessment: 1. Fever, likely aspiration. UA negative 2. Witnessed cardiac arrest, status post defibrillation. 3. Leukocytosis and lactic acidosis. 4. Human immunodeficiency virus, CD4 was 403 on 01/16 [facility]. 5. Acute hypoxic respiratory failure 6. History of ventricular tachycardia, Coronary artery disease, status post PCI. 7. Status post pacemaker for bradycardia 12/27 at [place]. 8. History of acute kidney injury, on hemodialysis in the past. 9. 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 10. Substance dependence. UDS positive for cocaine at outside hospital. 11. Hypertension/hyperlipidemia 12. Hypokalemia/hypomagnesemia. 13. H/O Chronic systolic congestive heart failure. 14. History of rectal abscess. 15. History of Necrotizing Pneumonia with Klebsiella at [facility] November 2019 Plan: Plan of Care Continue Zosyn,Zyvox Continue p.o. vancomycin for prophylaxis with history of recurrent C. difficile Continue Triumeq Follow up labs and cultures. Critically ill. Discussed with nursing. MILLY NICOLE MD Mar 24, 2020 12:27
--- NOTE | 2020-03-24 14:12 | PDOC ---
PROGRESS NOTES Date of Service DATE: 03/24/20 TIME: 14:10 Subjective Subjective Patient seen and evaluated Objective Objective Vital Signs Date Time Temp Pulse Resp B/P (MAP) Pulse Ox O2 Delivery O2 Flow Rate FiO2 03/24/20 11:30 96 Ventilator 03/24/20 10:00 65 20 98/58 (71) 03/24/20 08:00 98.1 98.1 03/23/20 06:49 5.0 Intake and Output 03/24/20 07:00 Intake Total 1324 ml Output Total 4645 ml Balance -3321 ml Intake Oral 0 ml IV Total 1324 ml Output Urine Total 4245 ml Gastric Drainage Total 400 ml Physical Exam Abdomen: Normal bowel sounds Heart: Regular rate General: Other (Intubated) Lungs: Other (Decreased breath sounds) Assessment Assessment OOH, witness cardiac arrest; Rhythm upon arrival unknown, although shockable as he was defibrillated x1 with ROSC. . remains intubated/vent Mild troponin elevation; trop highest 0.3 s/p resuscitation. EKG with LBBB Covid negative. H/o Vfib OOH arrest; probable ischemic in nature, antiarrhythmics discontinued in past due to QTc prolongation of 600. EKG at [facility] with QTc 507, 528. Acute respiratory failure secondary to above; s/p intubation. Followed by the pulmonary service. Possible extubation Thursday. CAD s/p PCI/BMS to the LCx 12/11/19. Treated with ASA,Brilinta initially, which was held due to recurrent GIB requiring transfusions.Due to recent PCI/BMS, Plavix was resumed while at [facility]. ASA was discontinued. ICM; LVEF 15-20%. SSS s/p leadless PPM implantation ([employer] Micra). Device does not store history rhythm data. History of hypertension; now hypotensive. Pressor support as needed. 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 Labs Laboratory Tests Test 03/23/20 05:00 03/23/20 07:32 03/24/20 08:45 White Blood Count 9.5 x10^3/uL (4.0-11.0) Red Blood Count 3.29 x10^6/uL (4.30-5.70) Hemoglobin 8.0 g/dL (13.0-17.5) Hematocrit 26.1 % (39.0-53.0) Mean Corpuscular Volume 79 fL (79-100) Mean Corpuscular Hemoglobin 24 pg (25-35) Mean Corpuscular Hemoglobin Concent 31 g/dL (31-37) Red Cell Distribution Width 17.6 % (11.5-14.5) Platelet Count 319 x10^3/uL (140-400) Neutrophils (%) (Auto) 64 % (31-73) Lymphocytes (%) (Auto) 28 % (24-48) Monocytes (%) (Auto) 7 % (0-9) Eosinophils (%) (Auto) 1 % (0-3) Basophils (%) (Auto) 0 % (0-3) Neutrophils # (Auto) 6.1 x10^3/uL (1.8-7.7) Lymphocytes # (Auto) 2.6 x10^3/uL (1.0-4.8) Monocytes # (Auto) 0.6 x10^3/uL (0.0-1.1) Eosinophils # (Auto) 0.1 x10^3/uL (0.0-0.7) Basophils # (Auto) 0.0 x10^3/uL (0.0-0.2) Sodium Level 146 mmol/L (136-145) Potassium Level 3.7 mmol/L (3.5-5.1) Chloride Level 111 mmol/L (98-107) Carbon Dioxide Level 26 mmol/L (21-32) Anion Gap 9 (6-14) Blood Urea Nitrogen 6 mg/dL (8-26) Creatinine 1.0 mg/dL (0.7-1.3) Estimated GFR (Cockcroft-Gault) 94.9 Glucose Level 83 mg/dL (70-99) Calcium Level 8.6 mg/dL (8.5-10.1) Phosphorus Level 3.8 mg/dL (2.6-4.7) Albumin 2.5 g/dL (3.4-5.0) O2 Saturation 98 % (92-99) 98 % (92-99) Arterial Blood pH 7.40 (7.35-7.45) 7.43 (7.35-7.45) Arterial Blood pCO2 at Patient Temp 38 mmHg (35-46) 35 mmHg (35-46) Arterial Blood pO2 at Patient Temp 101 mmHg (75-108) 109 mmHg (75-108) Arterial Blood HCO3 23 mmol/L (21-28) 23 mmol/L (21-28) Arterial Blood Base Excess -2 mmol/L (-3-3) -1 mmol/L (-3-3) FiO2 40 vent 40% vent Laboratory Tests Test 03/24/20 08:45 O2 Saturation 98 % (92-99) Arterial Blood pH 7.43 (7.35-7.45) Arterial Blood pCO2 at Patient Temp 35 mmHg (35-46) Arterial Blood pO2 at Patient Temp 109 mmHg (75-108) Arterial Blood HCO3 23 mmol/L (21-28) Arterial Blood Base Excess -1 mmol/L (-3-3) FiO2 40% vent Microbiology 03/21/20 Gram Stain Evaluation - Final, Complete 03/21/20 Respiratory Culture - Final, Complete 03/20/20 Blood Culture - Preliminary, Resulted NO GROWTH AFTER 4 DAYS Medications Current Medications Norepinephrine Bitartrate 8 mg/ Dextrose 258 ml @ 18.247 mls/ hr CONT PRN IV PER PROTOCOL Last administered on 03/21/20at 09:19; Start 03/20/20 at 04:15 Dopamine HCl/ Dextrose 250 ml @ 17.681 mls/ hr CONT PRN IV SEE I/O RECORD; Start 03/20/20 at 04:30 Heparin Sodium/ Dextrose 250 ml @ 0 mls/hr CONT PRN IV PER PROTOCOL Last administered on 03/21/20at 22:15; Start 03/20/20 at 04:30; Stop 03/22/20 at 10:15; Status DC Heparin Sodium (Porcine) (Heparin Sodium) 2,400 unit PRN Q6HRS PRN IV FOR UFH LEVEL LESS THAN 0.2 Last administered on 03/21/20at 14:17; Start 03/20/20 at 04:30; Stop 03/22/20 at 10:15; Status DC Fentanyl Citrate 30 ml @ 0 mls/hr CONT PRN IV SEE PROTOCOL Last administered on 03/23/20at 06:19; Start 03/20/20 at 04:45; Stop 03/23/20 at 19:11; Status DC Lorazepam (Ativan Inj) 1 mg PRN Q1HR PRN IV SEE COMMENTS Last administered on 03/24/20 12:45; Start 03/20/20 at 04:45 Fentanyl Citrate (Fentanyl 2ml Vial) 25 mcg PRN Q1HR PRN IV SEE COMMENTS; Start 03/20/20 at 04:45 Fentanyl Citrate (Fentanyl 2ml Vial) 50 mcg PRN Q1HR PRN IV SEE COMMENTS; Start 03/20/20 at 04:45 Chlorhexidine Gluconate (Peridex) 15 ml BID MM ; Start 03/20/20 at 09:00; Stop 03/20/20 at 07:24; Status DC Famotidine (Pepcid Vial) 20 mg BID IVP Last administered on 03/20/20at 08:07; Start 03/20/20 at 09:00; Stop 03/20/20 at 12:52; Status DC Morphine Sulfate (Morphine Sulfate) 2 mg PRN Q1HR PRN IV SEE COMMENTS.; Start 03/20/20 at 04:45 Morphine Sulfate (Morphine Sulfate) 4 mg PRN Q1HR PRN IV SEE COMMENTS.; Start 03/20/20 at 04:45 Midazolam HCl 100 ml @ 0 mls/hr CONT PRN IV SEE PROTOCOL Last administered on 03/24/20 08:25; Start 03/20/20 at 04:45 Docusate Sodium (Colace Solution) 100 mg BID NG Last administered on 03/24/20 09:00; Start 03/20/20 at 09:00 Sodium Chloride 1,000 ml @ 75 mls/hr [id number] IV Last administered on 03/24/20 09:19; Start 03/20/20 at 06:30 Acetaminophen (Tylenol) 650 mg PRN Q6HRS PRN PEG MILD PAIN / TEMP > 100.3'F Last administered on 03/23/20 12:16; Start 03/20/20 at 09:00 Piperacillin Sod/ Tazobactam Sod (Zosyn Per Pharmacy) 1 each PRN DAILY PRN MC SEE COMMENTS; Start 03/20/20 at 09:30 Piperacillin Sod/ Tazobactam Sod 3.375 gm/Sodium Chloride 50 ml @ 100 mls/hr Q6HRS IV Last administered on 03/24/20 12:39; Start 03/20/20 at 10:00 Magnesium Sulfate 50 ml @ 25 mls/hr 1X ONCE IV Last administered on 03/20/20at 10:21; Start 03/20/20 at 09:45; Stop 03/20/20 at 11:44; Status DC Clopidogrel Bisulfate (Plavix) 75 mg DAILYWBKFT PO Last administered on 03/24/20 09:01; Start 03/20/20 at 12:00 Atorvastatin Calcium (Lipitor) 80 mg QHS PO Last administered on 03/23/20 21:02; Start 03/20/20 at 21:00 Ondansetron HCl (Zofran) 4 mg PRN Q6HRS PRN IVP NAUSEA/VOMITING; Start 03/20/20 at 10:30 Famotidine (Pepcid Vial) 20 mg BID IVP ; Start 03/20/20 at 11:00; Stop 03/20/20 at 12:35; Status DC Info (Icu Electrolyte Protocol) 1 ea DAILY MC ; Start 03/21/20 at 09:00 Sodium Chloride (Normal Saline Flush) 3 ml QSHIFT PRN IV AFTER MEDS AND BLOOD DRAWS; Start 03/20/20 at 10:30 Pantoprazole Sodium (PROTONIX VIAL for IV PUSH) 40 mg DAILYAC IVP Last administered on 03/24/20 09:01; Start 03/20/20 at 12:30 Potassium Bicarbonate (Potassium Effervescent Tablet) 40 meq 1X ONCE PEG Last administered on 03/20/20at 14:47; Start 03/20/20 at 14:00; Stop 03/20/20 at 14:20; Status DC Non-Formulary Medication (ABACAVIR/ DOLUTEGRAVIR/ LAMIVUDINE (Triumeq) tablet) 1 ea DAILY PO Last administered on 03/24/20 09:03; Start 03/20/20 at 17:00 Vancomycin HCl (Vancomycin Oral Solution) 125 mg BID PO Last administered on 03/24/20 09:01; Start 03/20/20 at 21:30 Linezolid/Dextrose 300 ml @ 300 mls/hr Q12HR IV Last administered on 03/24/20 09:01; Start 03/21/20 at 09:00 Furosemide (Lasix) 40 mg DAILY IVP Last administered on 1/2/21at 09:01; Start 03/22/20 at 11:00 Potassium Chloride/Water 100 ml @ 50 mls/hr 1X ONCE IV Last administered on 03/22/20at 12:58; Start 03/22/20 at 10:30; Stop 03/22/20 at 12:29; Status DC Fentanyl Citrate 55 ml @ 0 mls/hr CONT PRN IV SEE PROTOCOL Last administered on 03/24/20at 09:02; Start 03/23/20 at 19:15 Dexmedetomidine HCl 400 mcg/ Sodium Chloride 100 ml @ 0 mls/hr CONT PRN IV PER PROTOCOL Last administered on 03/24/20at 03:33; Start 03/23/20 at 21:00; Stop 03/24/20 at 08:52; Status DC Sodium Chloride 500 ml @ 500 mls/hr 1X PRN PRN IV SEE COMMENTS; Start 03/23/20 at 21:00 Atropine Sulfate (ATROPINE 0.5mg SYRINGE) 0.5 mg PRN Q5MIN PRN IV SEE COMMENTS; Start 03/23/20 at 21:00 Haloperidol Lactate (Haldol Inj) 5 mg PRN Q6HRS PRN IVP AGITATION; Start 03/23/20 at 21:00; Stop 03/24/20 at 08:52; Status DC Propofol 100 ml @ 2.748 mls/ hr CONT PRN IV PER PROTOCOL; Start 03/24/20 at 09:00 Active Scripts Active Furosemide 40 Mg Tablet 40 Mg PO DAILY 90 Days Tramadol Hcl 50 Mg Tablet 50 Mg PO PRN Q6HRS PRN 6 Days Metoprolol Succinate ( Xl ) (Metoprolol Succinate) 25 Mg Tab.er.24h 12.5 Mg PO DAILY 90 Days Clopidogrel (Clopidogrel Bisulfate) 75 Mg Tablet 75 Mg PO DAILYWBKFT 90 Days Lisinopril 10 Mg Tablet 1 Tab PO DAILY 90 Days Atorvastatin Calcium 80 Mg Tablet 80 Mg PO QHS 90 Days Reported Klor-Con M20 (Potassium Chloride) 20 Meq Tab.er.prt 20 Meq PO TID Pantoprazole Sodium (Pantoprazole Sodium) 40 Mg Tablet.dr 40 Mg PO BID Duoneb 0.5-3(2.5) Mg/3 Ml (Albuterol/Ipratropium) 3 Ml Ampul.neb 3 Ml NEB PRN Q6HRS PRN Acetaminophen 325 Mg Tablet 1 Tab PO PRN Q6HRS PRN 24 Days Triumeq Tablet (Abacavir/Dolutegravir/Lamivudi) 1 Each Tablet 1 Tab PO DAILY 30 Days Gabapentin (Gabapentin) 300 Mg Capsule 100 Mg PO TID Children's Aspirin (Aspirin) 81 Mg Tab.chew 1 Tab PO DAILY 30 Days Vitals/I & O Vital Sign - Last 24 Hours 03/23/20 03/23/20 03/23/20 03/23/20 15:00 15:15 16:00 16:00 Temp 99.3 99.3 Pulse 84 74 Resp 22 22 B/P (MAP) 167/114 (131) 113/69 (84) Pulse Ox 100 99 97 O2 Delivery Ventilator Ventilator Ventilator Mechanical Ventilator 03/23/20 03/23/20 03/23/20 03/23/20 17:00 18:00 19:00 20:00 Pulse 72 72 87 Resp 22 22 20 B/P (MAP) 82/50 (61) 94/50 (65) 125/65 (85) Pulse Ox 97 97 100 O2 Delivery Ventilator Ventilator Ventilator Mechanical Ventilator 03/23/20 03/23/20 03/23/20 03/23/20 20:00 20:00 20:32 21:00 Temp 98.7 98.7 Pulse 96 98 Resp 20 20 20 B/P (MAP) 141/75 (97) 130/89 (103) Pulse Ox 100 99 98 O2 Delivery Ventilator Ventilator Ventilator Ventilator 03/23/20 03/23/20 03/23/20 03/24/20 21:04 22:00 23:00 00:00 Pulse 70 88 Resp 22 20 22 B/P (MAP) 100/61 (74) 123/86 (98) Pulse Ox 98 100 O2 Delivery Ventilator Ventilator Ventilator Mechanical Ventilator 03/24/20 03/24/20 03/24/20 03/24/20 00:00 00:21 01:00 02:00 Temp 98.4 98.4 Pulse 95 84 92 Resp 26 26 20 B/P (MAP) 154/91 (112) 138/75 (96) 124/70 (88) Pulse Ox 100 98 98 97 O2 Delivery Ventilator Ventilator Ventilator Ventilator 03/24/20 03/24/20 03/24/20 03/24/20 03:00 04:00 04:00 04:10 Temp 98.3 98.3 Pulse 70 72 Resp 20 20 B/P (MAP) 120/75 (90) 147/83 (104) Pulse Ox 99 99 99 O2 Delivery Ventilator Mechanical Ventilator Ventilator Ventilator 03/24/20 03/24/20 03/24/20 03/24/20 05:00 06:00 07:00 08:00 Temp 98.1 98.1 Pulse 78 69 68 68 Resp 20 20 20 20 B/P (MAP) 149/82 (104) 132/76 (94) 132/76 (94) 144/85 (104) Pulse Ox 98 98 99 100 O2 Delivery Ventilator Ventilator Ventilator Ventilator 03/24/20 03/24/20 03/24/20 03/24/20 08:00 09:00 09:02 10:00 Pulse 66 65 Resp 20 20 20 B/P (MAP) 147/87 (107) 98/58 (71) Pulse Ox 100 100 94 O2 Delivery Mechanical Ventilator Ventilator Ventilator Ventilator 03/24/20 11:30 Pulse Ox 96 O2 Delivery Ventilator Intake and Output 03/23/20 03/23/20 03/24/20 15:00 23:00 07:00 Intake Total 0 ml 1324 ml Output Total 1405 ml 2420 ml 820 ml Balance -1405 ml -1096 ml -820 ml Justifications for Admission Other Justification CARDIAC ARREST YAMILE HDEZ MD Mar 24, 2020 14:12
[2020-03-24] MEDS: ATORVASTATIN CALCIUM 40 MG TABLET. PO SCH (20:45)
[2020-03-25] VITALS (21 sets, daily range): BP systolic 75–172; BP diastolic 48–93
[2020-03-25] MEDS: MIDAZOLAM 100mg/100ml NS BAG 100 ML IV PRN ×3 (01:17→17:20)
[2020-03-25] MEDS: IV NORMAL SALINE 1000ML BAG 1,000 ML IV SCH ×2 (02:06→22:20)
[2020-03-25 06:09] LABS: CREATININE 0.9 mg/dL (0.7-1.3); GFR 107.2
[2020-03-25 06:11] LABS: BASO # 0.1 x10^3/uL (0.0-0.2); BASO % 1 % (0-3); EOS # 0.2 x10^3/uL (0.0-0.7); EOS % 2 % (0-3); HEMATOCRIT 25.5 % (39.0-53.0); HEMOGLOBIN 8.1 g/dL (13.0-17.5); LYMPH # 2.7 x10^3/uL (1.0-4.8); LYMPH % 35 % (24-48); MEAN CORPUSCULAR HEMOGLOBIN 25 pg (25-35); MEAN CORPUSCULAR HGB CONC 32 g/dL (31-37); MEAN CORPUSCULAR VOLUME 78 fL (79-100); MONO # 0.5 x10^3/uL (0.0-1.1); MONO % 6 % (0-9); NEUT # 4.3 x10^3/uL (1.8-7.7); NEUT % 56 % (31-73); PLATELET COUNT 316 x10^3/uL (140-400); RED BLOOD COUNT 3.26 x10^6/uL (4.30-5.70); RED CELL DISTRIBUTION WIDTH 17.9 % (11.5-14.5); WHITE BLOOD COUNT 7.6 x10^3/uL (4.0-11.0)
[2020-03-25] MEDS: PIPERACILLIN/TAZOBACTAM 3.375 GM in IV NORMAL SALINE 50ML 50 ML IV SCH ×3 (06:16→17:51)
[2020-03-25 07:59] LABS: BASE EXCESS ABG 0 mmol/L (-3-3); HCO3 ABG 24 mmol/L (21-28); PCO2 ABG 38 mmHg (35-46); PO2 ABG 71 mmHg (75-108); SAT O2 ABG 94 % (92-99)
[2020-03-25 08:00] LABS: FIO2 ABG 35
[2020-03-25] MEDS: PANTOPRAZOLE IV PUSH 40 MG VIAL. IVP SCH (08:00)
[2020-03-25] MEDS: DOCUSATE 100 MG/10 ML SOLUTION. NG SCH ×2 (08:01→22:20)
[2020-03-25] MEDS: fentaNYL HIGH DOSE PCA 55 ML IV PRN ×2 (08:11→19:02)
[2020-03-25] MEDS: ELECTROLYTE (ICU) PROTOCOL. MC SCH (08:12)
[2020-03-25] MEDS: FUROSEMIDE 40 MG/4 ML VIAL. IVP SCH ×2 (08:12→17:01)
[2020-03-25] MEDS: LAMIVUDINE PO SCH (08:13)
[2020-03-25] MEDS: ABACAVIR PO SCH (08:13)
[2020-03-25] MEDS: CLOPIDOGREL BISULFATE 75 MG TABLET PO SCH (08:13)
[2020-03-25] MEDS: DOLUTEGRAVIR PO SCH (08:13)
--- NOTE | 2020-03-25 11:01 | PDOC ---
PROGRESS NOTES Date of Service: DATE: 03/25/20 TIME: 11:01 Chief Complaint Chief Complaint VTE Prophylaxis Ordered VTE Prophylaxis Devices: Yes VTE Pharmacological Prophylaxi: Yes Assessment/Plan Assessment/Plan ASSESSMENT 1. out of hospital arrest , witness cardiac arrest; Defibrillation // AMI ruled out. 2. H/o Vfib probable ischemic in nature, antiarrhythmics discontinued in past due to QTc prolongation of 600. 3. Acute hypoxic respiratory failure requiring vent support 4. CAD s/p PCI/BMS to the LCx 12/11/19. Treated with ASA,Brilinta initially, which was held due to recurrent GIB requiring transfusions.Due to recent PCI/BMS, Plavix was resumed while at [facility]. ASA was d/c'd 5. Chronic systolic CHF 6. ischemic cardiomyopathy LVEF 20-25%. 7. SSS s/p leadless PPM 8. Hypertension; // requiring pressor support 9. Hypokalemia, hypomagnesemia 10. H/o DAIJA requiringHD; renal function improvedand HD catheter removed 11. 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 HIV 13. Substance abuse; UDS + cocaine , ALCOHOL, TOBACCO 14. Leukocytosis, fevers. ? sepsis Covid negative. 15. H/o Vfib OOH arrest; probable ischemic in nature, antiarrhythmics discontinued in past due to QTc prolongation of 600. EKG at [facility] with QTc 507, 528. 16. Human immunodeficiency virus, CD4 was 403 on 01/16 viral load less than 20 on 01/23on [facility]. 17. History of ventricular tachycardia, Coronary artery disease, status post PCI. 18. Status post pacemaker for bradycardia 12/27 at [place]. 19. hypernatremia, volume excess plan icu bed cardiology consult pulm consult Device interrogation Replace Mg, lytes Secondary prevention measures as able Resume Plavix. No ASA due to recent GIB Monitor LFTs Pressor support; wean as able Hold lisinopril, Toprol with hypotension Echo vent management GI CONSULT COVID 19 SCREEN vent support assist-control mode 50% and PEEP of 5 On heparin drip per cardiology hiv screen Echo to assess LV systolic function if COVID PCR negative Tube feeding on hold per GI, concern for ileus follow other GI recommendations vent support assist-control mode 40% and a PEEP of 5 Continue Zosyn,Zyvox Continue p.o. vancomycin for prophylaxis with history of recurrent C. difficile Continue Triumeq Follow up labs and cultures. 35% and a PEEP of 5 dec ns rate prognosis very guarded 39 MIN CC TIME History of Present Illness History of Present Illness Identification/Chief Complaint Chief Complaint admitted to icu , out of hospial arrest CAD s/p PCI/stent, cardiomyopathy, and prior cardiac arrest, presented secondary to cardiac arrest at home. Was at home with partner, Stevenson, watching television. Patient suddenly started breathing more deeply and began gasping for air. Eyes were wide and glassy. Was unresponsive. Partner was unable to feel pulse so he put him on the floor, called EMS and began chest compressions. Partner reports him drinking 3 malt beverages that evening while watching TV. No known sick contacts. EMS arrived within minutes. ROSC returned following one defibrillation. Although partner declined drug use, Narcan was administered en route due to pinpoint pupils. Limited effect from the Narcan. UDS was + for cocaine. IS COVID 19 PUI hx cardiac arrest on December 19, 2019. Patient was apparently found arrest in his car EMS noted in v-fib. ROSC was achieved following 1 defibrillation and 1 round of epi.//activated as STEMI with LBBB. Emergent cath notable for blockage of left circumflex. //PCI/BMS to the Left circumflex. went into Vfib in label rewinder and was initiated on Amiodarone therapy. LVEF noted at 20-25%. Developed DAIJA due to cardiogenic shock. had multiple episodes of bradycardia/significant pauses mostly related to suctioning. then leadlessPPM placement.Treated for Klebsiella PNA as well. course further complicated by GIB requiring tranfusion. 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 Past Medical History Past Medical History PAST MEDICAL HISTORY Past Medical History HIV, HTN, CAD s/p PCI/BMS to the LCx, GIB from arteriovenous malformation, esophagitis, gastritis, DAIJA requiring HD, bradycardia s/p Leadless PPM PAST SURGICAL HISTORY Past Surgical History: Pacemaker, Tonsillectomy, Other (PCI/stent ) FAMILY HISTORY Family History Other (no pertinent history) SOCIAL HISTORY Social History Smoke: <1 pack per day ALCOHOL: none Drugs: None Lives: with Family (with partner ) Cardiovascular: CAD, HTN, Hyperlipidemia Infectious disease: HIV Past Surgical History Past Surgical History: Pacemaker Family History Family History: Hypertension, Other Social History Smoke: <1 pack per day ALCOHOL: occassional Drugs: None, Cocaine Vitals Vitals Vital Signs Date Time Temp Pulse Resp B/P (MAP) Pulse Ox O2 Delivery O2 Flow Rate FiO2 03/25/20 09:00 85 20 104/73 (83) 97 Ventilator 03/25/20 08:11 5.0 03/25/20 07:00 98.6 98.6 Physical Exam Physical Exam GENERAL: Intubated, sedated. HEENT: Conjunctival suffusion. Pupils equal, reactive. ETT OGT present. NECK: Supple. LUNGS: Clear anteriorly. HEART: S1, S2, tachycardia. ABDOMEN: Obese, mildly distended. Bowel sounds present. EXTREMITIES: No edema or cyanosis. DERMATOLOGIC: Warm and dry. No generalized rash. NEUROLOGIC: Unable to assess. General: Other (Intubated) Heart: Regular rate Lungs: Clear Abdomen: Normal bowel sounds Extremities: No cyanosis, No edema, Normal pulses Skin: No significant lesion Labs LABS RDERED: RESP CULTURE COMMENTS: Has specimen been collected/obtained? Y TRACH ASPERATION Procedure Result GRAM STAIN EVALUATION Final Final This specimen is of good quality and is acceptable for routine bacterial culture. Culture results to follow. GRAM POSITIVE COCCI:FEW SQUAMOUS EPI CELL:NONE SEEN PMN (WBCs):MODERATE Unless otherwise specified, Testing Performed by: [address] [address] For Inquires, the Physician may contact the Microbiology department at [phone] RESPIRATORY CULTURE Final Final FEW Mixed upper respiratory yennifer on 03/23/20 at 0917 FEW Mixed upper respiratory yennifer on 03/24/20 at 1025 Unless otherwise specified, Testing Performed by: [address] [id number] For Inquires, the Physician may contact the Microbiology department at [phone] Laboratory Tests Test 03/25/20 05:00 03/25/20 07:30 White Blood Count 7.6 x10^3/uL (4.0-11.0) Red Blood Count 3.26 x10^6/uL (4.30-5.70) Hemoglobin 8.1 g/dL (13.0-17.5) Hematocrit 25.5 % (39.0-53.0) Mean Corpuscular Volume 78 fL (79-100) Mean Corpuscular Hemoglobin 25 pg (25-35) Mean Corpuscular Hemoglobin Concent 32 g/dL (31-37) Red Cell Distribution Width 17.9 % (11.5-14.5) Platelet Count 316 x10^3/uL (140-400) Neutrophils (%) (Auto) 56 % (31-73) Lymphocytes (%) (Auto) 35 % (24-48) Monocytes (%) (Auto) 6 % (0-9) Eosinophils (%) (Auto) 2 % (0-3) Basophils (%) (Auto) 1 % (0-3) Neutrophils # (Auto) 4.3 x10^3/uL (1.8-7.7) Lymphocytes # (Auto) 2.7 x10^3/uL (1.0-4.8) Monocytes # (Auto) 0.5 x10^3/uL (0.0-1.1) Eosinophils # (Auto) 0.2 x10^3/uL (0.0-0.7) Basophils # (Auto) 0.1 x10^3/uL (0.0-0.2) Sodium Level 149 mmol/L (136-145) Potassium Level 3.0 mmol/L (3.5-5.1) Chloride Level 114 mmol/L (98-107) Carbon Dioxide Level 24 mmol/L (21-32) Anion Gap 11 (6-14) Blood Urea Nitrogen 5 mg/dL (8-26) Creatinine 0.9 mg/dL (0.7-1.3) Estimated GFR (Cockcroft-Gault) 107.2 Glucose Level 77 mg/dL (70-99) Calcium Level 8.0 mg/dL (8.5-10.1) O2 Saturation 94 % (92-99) Arterial Blood pH 7.42 (7.35-7.45) Arterial Blood pCO2 at Patient Temp 38 mmHg (35-46) Arterial Blood pO2 at Patient Temp 71 mmHg (75-108) Arterial Blood HCO3 24 mmol/L (21-28) Arterial Blood Base Excess 0 mmol/L (-3-3) FiO2 35 Comment Review of Relevant I have reviewed the following items joel (where applicable) has been applied. Labs Laboratory Tests Test 03/24/20 08:45 03/25/20 05:00 03/25/20 07:30 O2 Saturation 98 % (92-99) 94 % (92-99) Arterial Blood pH 7.43 (7.35-7.45) 7.42 (7.35-7.45) Arterial Blood pCO2 at Patient Temp 35 mmHg (35-46) 38 mmHg (35-46) Arterial Blood pO2 at Patient Temp 109 mmHg (75-108) 71 mmHg (75-108) Arterial Blood HCO3 23 mmol/L (21-28) 24 mmol/L (21-28) Arterial Blood Base Excess -1 mmol/L (-3-3) 0 mmol/L (-3-3) FiO2 40% vent 35 White Blood Count 7.6 x10^3/uL (4.0-11.0) Red Blood Count 3.26 x10^6/uL (4.30-5.70) Hemoglobin 8.1 g/dL (13.0-17.5) Hematocrit 25.5 % (39.0-53.0) Mean Corpuscular Volume 78 fL (79-100) Mean Corpuscular Hemoglobin 25 pg (25-35) Mean Corpuscular Hemoglobin Concent 32 g/dL (31-37) Red Cell Distribution Width 17.9 % (11.5-14.5) Platelet Count 316 x10^3/uL (140-400) Neutrophils (%) (Auto) 56 % (31-73) Lymphocytes (%) (Auto) 35 % (24-48) Monocytes (%) (Auto) 6 % (0-9) Eosinophils (%) (Auto) 2 % (0-3) Basophils (%) (Auto) 1 % (0-3) Neutrophils # (Auto) 4.3 x10^3/uL (1.8-7.7) Lymphocytes # (Auto) 2.7 x10^3/uL (1.0-4.8) Monocytes # (Auto) 0.5 x10^3/uL (0.0-1.1) Eosinophils # (Auto) 0.2 x10^3/uL (0.0-0.7) Basophils # (Auto) 0.1 x10^3/uL (0.0-0.2) Sodium Level 149 mmol/L (136-145) Potassium Level 3.0 mmol/L (3.5-5.1) Chloride Level 114 mmol/L (98-107) Carbon Dioxide Level 24 mmol/L (21-32) Anion Gap 11 (6-14) Blood Urea Nitrogen 5 mg/dL (8-26) Creatinine 0.9 mg/dL (0.7-1.3) Estimated GFR (Cockcroft-Gault) 107.2 Glucose Level 77 mg/dL (70-99) Calcium Level 8.0 mg/dL (8.5-10.1) Laboratory Tests Test 03/25/20 05:00 03/25/20 07:30 White Blood Count 7.6 x10^3/uL (4.0-11.0) Red Blood Count 3.26 x10^6/uL (4.30-5.70) Hemoglobin 8.1 g/dL (13.0-17.5) Hematocrit 25.5 % (39.0-53.0) Mean Corpuscular Volume 78 fL (79-100) Mean Corpuscular Hemoglobin 25 pg (25-35) Mean Corpuscular Hemoglobin Concent 32 g/dL (31-37) Red Cell Distribution Width 17.9 % (11.5-14.5) Platelet Count 316 x10^3/uL (140-400) Neutrophils (%) (Auto) 56 % (31-73) Lymphocytes (%) (Auto) 35 % (24-48) Monocytes (%) (Auto) 6 % (0-9) Eosinophils (%) (Auto) 2 % (0-3) Basophils (%) (Auto) 1 % (0-3) Neutrophils # (Auto) 4.3 x10^3/uL (1.8-7.7) Lymphocytes # (Auto) 2.7 x10^3/uL (1.0-4.8) Monocytes # (Auto) 0.5 x10^3/uL (0.0-1.1) Eosinophils # (Auto) 0.2 x10^3/uL (0.0-0.7) Basophils # (Auto) 0.1 x10^3/uL (0.0-0.2) Sodium Level 149 mmol/L (136-145) Potassium Level 3.0 mmol/L (3.5-5.1) Chloride Level 114 mmol/L (98-107) Carbon Dioxide Level 24 mmol/L (21-32) Anion Gap 11 (6-14) Blood Urea Nitrogen 5 mg/dL (8-26) Creatinine 0.9 mg/dL (0.7-1.3) Estimated GFR (Cockcroft-Gault) 107.2 Glucose Level 77 mg/dL (70-99) Calcium Level 8.0 mg/dL (8.5-10.1) O2 Saturation 94 % (92-99) Arterial Blood pH 7.42 (7.35-7.45) Arterial Blood pCO2 at Patient Temp 38 mmHg (35-46) Arterial Blood pO2 at Patient Temp 71 mmHg (75-108) Arterial Blood HCO3 24 mmol/L (21-28) Arterial Blood Base Excess 0 mmol/L (-3-3) FiO2 35 Microbiology 03/21/20 Gram Stain Evaluation - Final, Complete 03/21/20 Respiratory Culture - Final, Complete 03/20/20 Blood Culture - Preliminary, Resulted NO GROWTH AFTER 4 DAYS Medications Current Medications Norepinephrine Bitartrate 8 mg/ Dextrose 258 ml @ 18.247 mls/ hr CONT PRN IV PER PROTOCOL Last administered on 03/21/20at 09:19; Start 03/20/20 at 04:15 Dopamine HCl/ Dextrose 250 ml @ 17.681 mls/ hr CONT PRN IV SEE I/O RECORD; Start 03/20/20 at 04:30 Heparin Sodium/ Dextrose 250 ml @ 0 mls/hr CONT PRN IV PER PROTOCOL Last administered on 03/21/20at 22:15; Start 03/20/20 at 04:30; Stop 03/22/20 at 10:15; Status DC Heparin Sodium (Porcine) (Heparin Sodium) 2,400 unit PRN Q6HRS PRN IV FOR UFH LEVEL LESS THAN 0.2 Last administered on 03/21/20at 14:17; Start 03/20/20 at 04:30; Stop 03/22/20 at 10:15; Status DC Fentanyl Citrate 30 ml @ 0 mls/hr CONT PRN IV SEE PROTOCOL Last administered on 03/23/20at 06:19; Start 03/20/20 at 04:45; Stop 03/23/20 at 19:11; Status DC Lorazepam (Ativan Inj) 1 mg PRN Q1HR PRN IV SEE COMMENTS Last administered on 03/24/20at 18:39; Start 03/20/20 at 04:45 Fentanyl Citrate (Fentanyl 2ml Vial) 25 mcg PRN Q1HR PRN IV SEE COMMENTS; Start 03/20/20 at 04:45 Fentanyl Citrate (Fentanyl 2ml Vial) 50 mcg PRN Q1HR PRN IV SEE COMMENTS; Start 03/20/20 at 04:45 Chlorhexidine Gluconate (Peridex) 15 ml BID MM ; Start 03/20/20 at 09:00; Stop 03/20/20 at 07:24; Status DC Famotidine (Pepcid Vial) 20 mg BID IVP Last administered on 03/20/20at 08:07; Start 03/20/20 at 09:00; Stop 03/20/20 at 12:52; Status DC Morphine Sulfate (Morphine Sulfate) 2 mg PRN Q1HR PRN IV SEE COMMENTS.; Start 03/20/20 at 04:45 Morphine Sulfate (Morphine Sulfate) 4 mg PRN Q1HR PRN IV SEE COMMENTS.; Start 03/20/20 at 04:45 Midazolam HCl 100 ml @ 0 mls/hr CONT PRN IV SEE PROTOCOL Last administered on 03/25/20 08:09; Start 03/20/20 at 04:45 Docusate Sodium (Colace Solution) 100 mg BID NG Last administered on 03/25/20 08:01; Start 03/20/20 at 09:00 Sodium Chloride 1,000 ml @ 75 mls/hr [id number] IV Last administered on 03/25/20 02:06; Start 03/20/20 at 06:30 Acetaminophen (Tylenol) 650 mg PRN Q6HRS PRN PEG MILD PAIN / TEMP > 100.3'F Last administered on 03/23/20 12:16; Start 03/20/20 at 09:00 Piperacillin Sod/ Tazobactam Sod (Zosyn Per Pharmacy) 1 each PRN DAILY PRN MC SEE COMMENTS; Start 03/20/20 at 09:30 Piperacillin Sod/ Tazobactam Sod 3.375 gm/Sodium Chloride 50 ml @ 100 mls/hr Q6HRS IV Last administered on 03/25/20 06:16; Start 03/20/20 at 10:00 Magnesium Sulfate 50 ml @ 25 mls/hr 1X ONCE IV Last administered on 03/20/20at 10:21; Start 03/20/20 at 09:45; Stop 03/20/20 at 11:44; Status DC Clopidogrel Bisulfate (Plavix) 75 mg DAILYWBKFT PO Last administered on 03/25/20 08:13; Start 03/20/20 at 12:00 Atorvastatin Calcium (Lipitor) 80 mg QHS PO Last administered on 03/24/20 20:45; Start 03/20/20 at 21:00 Ondansetron HCl (Zofran) 4 mg PRN Q6HRS PRN IVP NAUSEA/VOMITING; Start 03/20/20 at 10:30 Famotidine (Pepcid Vial) 20 mg BID IVP ; Start 03/20/20 at 11:00; Stop 03/20/20 at 12:35; Status DC Info (Icu Electrolyte Protocol) 1 ea DAILY MC Last administered on 03/25/20 08:12; Start 03/21/20 at 09:00 Sodium Chloride (Normal Saline Flush) 3 ml QSHIFT PRN IV AFTER MEDS AND BLOOD DRAWS; Start 03/20/20 at 10:30 Pantoprazole Sodium (PROTONIX VIAL for IV PUSH) 40 mg DAILYAC IVP Last administered on 03/25/20 08:00; Start 03/20/20 at 12:30 Potassium Bicarbonate (Potassium Effervescent Tablet) 40 meq 1X ONCE PEG Last administered on 03/20/20at 14:47; Start 03/20/20 at 14:00; Stop 03/20/20 at 14:20; Status DC Non-Formulary Medication (ABACAVIR/ DOLUTEGRAVIR/ LAMIVUDINE (Triumeq) tablet) 1 ea DAILY PO Last administered on 03/25/20at 08:13; Start 03/20/20 at 17:00 Vancomycin HCl (Vancomycin Oral Solution) 125 mg BID PO Last administered on 03/24/20at 20:45; Start 03/20/20 at 21:30 Linezolid/Dextrose 300 ml @ 300 mls/hr Q12HR IV Last administered on 03/25/20at 08:01; Start 03/21/20 at 09:00 Furosemide (Lasix) 40 mg DAILY IVP Last administered on 03/25/20at 08:12; Start 03/22/20 at 11:00 Potassium Chloride/Water 100 ml @ 50 mls/hr 1X ONCE IV Last administered on 03/22/20at 12:58; Start 03/22/20 at 10:30; Stop 03/22/20 at 12:29; Status DC Fentanyl Citrate 55 ml @ 0 mls/hr CONT PRN IV SEE PROTOCOL Last administered on 03/25/20at 08:11; Start 03/23/20 at 19:15 Dexmedetomidine HCl 400 mcg/ Sodium Chloride 100 ml @ 0 mls/hr CONT PRN IV PER PROTOCOL Last administered on 03/24/20at 03:33; Start 03/23/20 at 21:00; Stop 03/24/20 at 08:52; Status DC Sodium Chloride 500 ml @ 500 mls/hr 1X PRN PRN IV SEE COMMENTS; Start 03/23/20 at 21:00 Atropine Sulfate (ATROPINE 0.5mg SYRINGE) 0.5 mg PRN Q5MIN PRN IV SEE COMMENTS; Start 03/23/20 at 21:00 Haloperidol Lactate (Haldol Inj) 5 mg PRN Q6HRS PRN IVP AGITATION; Start 03/23/20 at 21:00; Stop 03/24/20 at 08:52; Status DC Propofol 100 ml @ 2.748 mls/ hr CONT PRN IV PER PROTOCOL Last administered on 03/25/20at 01:17; Start 03/24/20 at 09:00 Potassium Chloride/Water 100 ml @ 100 mls/hr Q1H IV ; Start 03/25/20 at 10:00; Stop 03/25/20 at 17:59 Active Scripts Active Furosemide 40 Mg Tablet 40 Mg PO DAILY 90 Days Tramadol Hcl 50 Mg Tablet 50 Mg PO PRN Q6HRS PRN 6 Days Metoprolol Succinate ( Xl ) (Metoprolol Succinate) 25 Mg Tab.er.24h 12.5 Mg PO DAILY 90 Days Clopidogrel (Clopidogrel Bisulfate) 75 Mg Tablet 75 Mg PO DAILYWBKFT 90 Days Lisinopril 10 Mg Tablet 1 Tab PO DAILY 90 Days Atorvastatin Calcium 80 Mg Tablet 80 Mg PO QHS 90 Days Reported Klor-Con M20 (Potassium Chloride) 20 Meq Tab.er.prt 20 Meq PO TID Pantoprazole Sodium (Pantoprazole Sodium) 40 Mg Tablet.dr 40 Mg PO BID Duoneb 0.5-3(2.5) Mg/3 Ml (Albuterol/Ipratropium) 3 Ml Ampul.neb 3 Ml NEB PRN Q6HRS PRN Acetaminophen 325 Mg Tablet 1 Tab PO PRN Q6HRS PRN 24 Days Triumeq Tablet (Abacavir/Dolutegravir/Lamivudi) 1 Each Tablet 1 Tab PO DAILY 30 Days Gabapentin (Gabapentin) 300 Mg Capsule 100 Mg PO TID Children's Aspirin (Aspirin) 81 Mg Tab.chew 1 Tab PO DAILY 30 Days Vitals/I & O Vital Sign - Last 24 Hours 03/24/20 03/24/20 03/24/20 03/24/20 11:30 12:00 12:00 13:00 Temp 98.0 98.0 Pulse 72 74 Resp 20 20 B/P (MAP) 91/60 (70) 85/52 (63) Pulse Ox 96 98 98 O2 Delivery Ventilator Ventilator Mechanical Ventilator Ventilator 03/24/20 03/24/20 03/24/20 03/24/20 14:00 15:00 16:00 16:00 Temp 98.2 98.2 Pulse 92 86 93 Resp 20 20 20 B/P (MAP) 118/87 (97) 96/60 (72) 124/75 (91) Pulse Ox 98 98 98 O2 Delivery Ventilator Ventilator Mechanical Ventilator Ventilator 03/24/20 03/24/20 03/24/20 03/24/20 16:04 17:00 18:00 19:00 Pulse 98 102 92 Resp 20 24 20 B/P (MAP) 143/88 (106) 127/90 (102) 90/50 (63) Pulse Ox 97 100 97 95 O2 Delivery Ventilator Ventilator Ventilator Ventilator 03/24/20 03/24/20 03/24/20 03/24/20 20:00 20:00 20:37 21:00 Temp 99.2 99.2 Pulse 95 95 Resp 20 20 B/P (MAP) 124/74 (91) 137/84 (101) Pulse Ox 97 97 98 O2 Delivery Ventilator Mechanical Ventilator Ventilator Ventilator 03/24/20 03/24/20 03/24/20 03/24/20 21:26 22:00 22:00 23:00 Pulse 96 98 Resp 20 20 20 20 B/P (MAP) 128/71 (90) 133/88 (103) Pulse Ox 97 99 O2 Delivery Ventilator Ventilator Ventilator Ventilator 03/24/20 03/25/20 03/25/20 03/25/20 23:10 00:00 00:00 01:00 Temp 99.5 99.5 Pulse 104 100 Resp 22 24 B/P (MAP) 102/64 (77) 166/72 (103) Pulse Ox 97 97 97 O2 Delivery Ventilator Ventilator Mechanical Ventilator Ventilator 03/25/20 03/25/20 03/25/20 03/25/20 02:00 03:00 03:58 04:00 Temp 99.2 99.2 Pulse 89 88 84 Resp 22 20 20 B/P (MAP) 113/64 (80) 96/59 (71) 104/65 (78) Pulse Ox 97 97 97 96 O2 Delivery Ventilator Ventilator Ventilator Ventilator 03/25/20 03/25/20 03/25/20 03/25/20 04:00 05:00 06:00 07:00 Temp 98.6 98.6 Pulse 82 92 87 Resp 20 20 20 B/P (MAP) 90/54 (66) 114/73 (87) 120/69 (86) Pulse Ox 97 99 100 O2 Delivery Mechanical Ventilator Ventilator Ventilator Ventilator 03/25/20 03/25/20 03/25/20 03/25/20 07:30 08:00 08:00 08:11 Pulse 91 Resp 20 B/P (MAP) 82/51 (61) Pulse Ox 98 99 98 O2 Delivery Ventilator Ventilator Mechanical Ventilator O2 Flow Rate 5.0 03/25/20 09:00 Pulse 85 Resp 20 B/P (MAP) 104/73 (83) Pulse Ox 97 O2 Delivery Ventilator Intake and Output 03/24/20 03/24/20 03/25/20 15:00 23:00 07:00 Intake Total 470 ml 265 ml 1513.3 ml Output Total 1400 ml 1330 ml 730 ml Balance -930 ml -1065 ml 783.3 ml Justicifation of Admission Dx: Justifications for Admission: Justification of Admission Dx: Yes GLADYS FAUSTIN MD Mar 25, 2020 11:01
--- NOTE | 2020-03-25 11:04 | PDOC ---
PULMONARY PROGRESS NOTES DATE: 03/25/20 TIME: 11:02 Subjective Patient remains on vent support assist-control mode 35% and a PEEP of 5 Afebrile No other concerns from nursing at this time Vitals Vital Signs Date Time Temp Pulse Resp B/P (MAP) Pulse Ox O2 Delivery O2 Flow Rate FiO2 03/25/20 09:00 85 20 104/73 (83) 97 Ventilator 03/25/20 08:11 5.0 03/25/20 07:00 98.6 98.6 Comments Intubated/sedated Lungs: Clear Extremities: No Edema Labs Laboratory Tests Test 03/24/20 08:45 03/25/20 05:00 03/25/20 07:30 O2 Saturation 98 % (92-99) 94 % (92-99) Arterial Blood pH 7.43 (7.35-7.45) 7.42 (7.35-7.45) Arterial Blood pCO2 at Patient Temp 35 mmHg (35-46) 38 mmHg (35-46) Arterial Blood pO2 at Patient Temp 109 mmHg (75-108) 71 mmHg (75-108) Arterial Blood HCO3 23 mmol/L (21-28) 24 mmol/L (21-28) Arterial Blood Base Excess -1 mmol/L (-3-3) 0 mmol/L (-3-3) FiO2 40% vent 35 White Blood Count 7.6 x10^3/uL (4.0-11.0) Red Blood Count 3.26 x10^6/uL (4.30-5.70) Hemoglobin 8.1 g/dL (13.0-17.5) Hematocrit 25.5 % (39.0-53.0) Mean Corpuscular Volume 78 fL (79-100) Mean Corpuscular Hemoglobin 25 pg (25-35) Mean Corpuscular Hemoglobin Concent 32 g/dL (31-37) Red Cell Distribution Width 17.9 % (11.5-14.5) Platelet Count 316 x10^3/uL (140-400) Neutrophils (%) (Auto) 56 % (31-73) Lymphocytes (%) (Auto) 35 % (24-48) Monocytes (%) (Auto) 6 % (0-9) Eosinophils (%) (Auto) 2 % (0-3) Basophils (%) (Auto) 1 % (0-3) Neutrophils # (Auto) 4.3 x10^3/uL (1.8-7.7) Lymphocytes # (Auto) 2.7 x10^3/uL (1.0-4.8) Monocytes # (Auto) 0.5 x10^3/uL (0.0-1.1) Eosinophils # (Auto) 0.2 x10^3/uL (0.0-0.7) Basophils # (Auto) 0.1 x10^3/uL (0.0-0.2) Sodium Level 149 mmol/L (136-145) Potassium Level 3.0 mmol/L (3.5-5.1) Chloride Level 114 mmol/L (98-107) Carbon Dioxide Level 24 mmol/L (21-32) Anion Gap 11 (6-14) Blood Urea Nitrogen 5 mg/dL (8-26) Creatinine 0.9 mg/dL (0.7-1.3) Estimated GFR (Cockcroft-Gault) 107.2 Glucose Level 77 mg/dL (70-99) Calcium Level 8.0 mg/dL (8.5-10.1) Laboratory Tests Test 03/25/20 05:00 03/25/20 07:30 White Blood Count 7.6 x10^3/uL (4.0-11.0) Red Blood Count 3.26 x10^6/uL (4.30-5.70) Hemoglobin 8.1 g/dL (13.0-17.5) Hematocrit 25.5 % (39.0-53.0) Mean Corpuscular Volume 78 fL (79-100) Mean Corpuscular Hemoglobin 25 pg (25-35) Mean Corpuscular Hemoglobin Concent 32 g/dL (31-37) Red Cell Distribution Width 17.9 % (11.5-14.5) Platelet Count 316 x10^3/uL (140-400) Neutrophils (%) (Auto) 56 % (31-73) Lymphocytes (%) (Auto) 35 % (24-48) Monocytes (%) (Auto) 6 % (0-9) Eosinophils (%) (Auto) 2 % (0-3) Basophils (%) (Auto) 1 % (0-3) Neutrophils # (Auto) 4.3 x10^3/uL (1.8-7.7) Lymphocytes # (Auto) 2.7 x10^3/uL (1.0-4.8) Monocytes # (Auto) 0.5 x10^3/uL (0.0-1.1) Eosinophils # (Auto) 0.2 x10^3/uL (0.0-0.7) Basophils # (Auto) 0.1 x10^3/uL (0.0-0.2) Sodium Level 149 mmol/L (136-145) Potassium Level 3.0 mmol/L (3.5-5.1) Chloride Level 114 mmol/L (98-107) Carbon Dioxide Level 24 mmol/L (21-32) Anion Gap 11 (6-14) Blood Urea Nitrogen 5 mg/dL (8-26) Creatinine 0.9 mg/dL (0.7-1.3) Estimated GFR (Cockcroft-Gault) 107.2 Glucose Level 77 mg/dL (70-99) Calcium Level 8.0 mg/dL (8.5-10.1) O2 Saturation 94 % (92-99) Arterial Blood pH 7.42 (7.35-7.45) Arterial Blood pCO2 at Patient Temp 38 mmHg (35-46) Arterial Blood pO2 at Patient Temp 71 mmHg (75-108) Arterial Blood HCO3 24 mmol/L (21-28) Arterial Blood Base Excess 0 mmol/L (-3-3) FiO2 35 Medications Active Scripts Medications Dose Route/Sig Max Daily Dose Days Date Category Furosemide 40 Mg Tablet 40 Mg PO DAILY 02/02/20 Rx Tramadol Hcl 50 Mg Tablet 50 Mg PO PRN Q6HRS PRN 6 02/02/20 Rx Metoprolol Succinate ( Xl ) (Metoprolol Succinate) 25 Mg Tab.er.24h 12.5 Mg PO DAILY 02/02/20 Rx Clopidogrel (Clopidogrel Bisulfate) 75 Mg Tablet 75 Mg PO DAILYWBKFT 02/02/20 Rx Lisinopril 10 Mg Tablet 1 Tab PO DAILY 02/02/20 Rx Atorvastatin Calcium 80 Mg Tablet 80 Mg PO QHS 02/02/20 Rx Klor-Con M20 (Potassium Chloride) 20 Meq Tab.er.prt 20 Meq PO TID 01/31/20 Reported Pantoprazole Sodium (Pantoprazole Sodium) 40 Mg Tablet.dr 40 Mg PO BID 01/31/20 Reported Duoneb 0.5-3(2.5) Mg/3 Ml (Albuterol/Ipratropium) 3 Ml Ampul.neb 3 Ml NEB PRN Q6HRS PRN 01/31/20 Reported Acetaminophen 325 Mg Tablet 1 Tab PO PRN Q6HRS PRN 24 01/31/20 Reported Triumeq Tablet (Abacavir/Dolutegravir/Lamivudi) 1 Each Tablet 1 Tab PO DAILY 30 01/31/20 Reported Gabapentin (Gabapentin) 300 Mg Capsule 100 Mg PO TID 01/31/20 Reported Children's Aspirin (Aspirin) 81 Mg Tab.chew 1 Tab PO DAILY 30 01/31/20 Reported Comments CXR IMPRESSION: Aeration of the lungs appears similar to the prior examination. Support lines and tubes are in similar position. Impression . IMPRESSION: 1. Acute hypoxemic respiratory failure secondary to cbr-[id number] cardiopulmonary arrest. 2. History of ventricular fibrillation with previous ptv-lr-[id number] cardiac arrest. 3. History of coronary artery disease, status post percutaneous coronary intervention to the circumflex. 4. History of gastrointestinal bleed. 5. Chronic systolic heart failure. 6. Ischemic cardiomyopathy, ejection fraction 15%. 7. Status post pacemaker implantation. 8. Hypertension. 9. Hypokalemia. 10. Previous kidney injury requiring hemodialysis. 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 12. Human immunodeficiency virus. 13. Polysubstance use. Plan . Continue current ventilatory support FiO2 35% and a PEEP of 5 Follow chest x-ray as needed/ABG make changes as needed--no changes today Proceed with sedation vacation in the morning and plan for extubation Continue empiric antibiotics per infectious disease: Zyvox/vancomycin/Zosyn Follow cultures, respiratory culture growing out gram-positive cocci Follow other cardiology recommendations Tube feeding remains on hold per GI---follow other GI recommendations DVT/GI prophylaxis Discussed with RN and RT Critical care time [id number] DAMIÁN HASTINGS MD Mar 25, 2020 11:04
--- NOTE | 2020-03-25 11:32 | PDOC ---
Infectious Disease Note Subjective: Subjective Patient intubated/sedated No fevers last 24 hours No acute issues per discussion with RN Vital Signs: Vital Signs Vital Signs Date Time Temp Pulse Resp B/P (MAP) Pulse Ox O2 Delivery O2 Flow Rate FiO2 03/25/20 09:00 85 20 104/73 (83) 97 Ventilator 03/25/20 08:11 5.0 03/25/20 07:00 98.6 98.6 Physical Exam: PHYSICAL EXAM GENERAL: Intubated, sedated. HEENT: Conjunctival suffusion. Pupils equal, reactive. ETT OGT present. NECK: Supple. LUNGS: Clear anteriorly. HEART: S1, S2, tachycardia. ABDOMEN: Obese, mildly distended. Bowel sounds present. EXTREMITIES: No edema or cyanosis. DERMATOLOGIC: Warm and dry. No generalized rash. NEUROLOGIC: Unable to assess. Medications: Inpatient Meds: Current Medications Medications (Trade) Dose Ordered Sig/Guy Start Time Stop Time Status Last Admin Dose Admin Acetaminophen (Tylenol) 650 mg PRN Q6HRS PRN 03/20/20 09:00 03/23/20 12:16 650 MG Atorvastatin Calcium (Lipitor) 80 mg QHS 03/20/20 21:00 03/24/20 20:45 80 MG Atropine Sulfate (ATROPINE 0.5mg SYRINGE) 0.5 mg PRN Q5MIN PRN 03/23/20 21:00 Chlorhexidine Gluconate (Peridex) 15 ml BID 03/20/20 09:00 03/20/20 07:24 DC Clopidogrel Bisulfate (Plavix) 75 mg DAILYWBKFT 03/20/20 12:00 03/25/20 08:13 75 MG Dexmedetomidine HCl 400 mcg/ Sodium Chloride 100 ml @ 0 mls/hr CONT PRN 03/23/20 21:00 03/24/20 08:52 DC 03/24/20 03:33 11.4 MLS/HR Docusate Sodium (Colace Solution) 100 mg BID 03/20/20 09:00 03/25/20 08:01 100 MG Dopamine HCl/ Dextrose 250 ml @ 17.681 mls/ hr CONT PRN 03/20/20 04:30 Famotidine (Pepcid Vial) 20 mg BID 03/20/20 11:00 03/20/20 12:35 DC Fentanyl Citrate 55 ml @ 0 mls/hr CONT PRN 03/23/20 19:15 03/25/20 08:11 4 MLS/HR Fentanyl Citrate (Fentanyl 2ml Vial) 50 mcg PRN Q1HR PRN 03/20/20 04:45 Furosemide (Lasix) 40 mg DAILY 03/22/20 11:00 03/25/20 08:12 40 MG Haloperidol Lactate (Haldol Inj) 5 mg PRN Q6HRS PRN 03/23/20 21:00 03/24/20 08:52 DC Heparin Sodium (Porcine) (Heparin Sodium) 2,400 unit PRN Q6HRS PRN 03/20/20 04:30 03/22/20 10:15 DC 03/21/20 14:17 2,400 UNIT Heparin Sodium/ Dextrose 250 ml @ 0 mls/hr CONT PRN 03/20/20 04:30 03/22/20 10:15 DC 03/21/20 22:15 19.8 MLS/HR Info ([facility]cu Electrolyte Protocol) 1 ea DAILY 03/21/20 09:00 03/25/20 08:12 1 EA Linezolid/Dextrose 300 ml @ 300 mls/hr Q12HR 03/21/20 09:00 03/25/20 08:01 300 MLS/HR Lorazepam (Ativan Inj) 1 mg PRN Q1HR PRN 03/20/20 04:45 03/24/20 18:39 1 MG Magnesium Sulfate 50 ml @ 25 mls/hr 1X ONCE 03/20/20 09:45 03/20/20 11:44 DC 03/20/20 10:21 25 MLS/HR Midazolam HCl 100 ml @ 0 mls/hr CONT PRN 03/20/20 04:45 03/25/20 08:09 4 MLS/HR Morphine Sulfate (Morphine Sulfate) 4 mg PRN Q1HR PRN 03/20/20 04:45 Non-Formulary Medication (ABACAVIR/ DOLUTEGRAVIR/ LAMIVUDINE (Triumeq) tablet) 1 ea DAILY 03/20/20 17:00 03/25/20 08:13 1 EA Norepinephrine Bitartrate 8 mg/ Dextrose 258 ml @ 18.247 mls/ hr CONT PRN 03/20/20 04:15 03/21/20 09:19 5.474 MLS/HR Ondansetron HCl (Zofran) 4 mg PRN Q6HRS PRN 03/20/20 10:30 Pantoprazole Sodium (PROTONIX VIAL for IV PUSH) 40 mg DAILYAC 03/20/20 12:30 03/25/20 08:00 40 MG Piperacillin Sod/ Tazobactam Sod (Zosyn Per Pharmacy) 1 each PRN DAILY PRN 03/20/20 09:30 Piperacillin Sod/ Tazobactam Sod 3.375 gm/Sodium Chloride 50 ml @ 100 mls/hr Q6HRS 03/20/20 10:00 03/25/20 06:16 100 MLS/HR Potassium Bicarbonate (Potassium Effervescent Tablet) 40 meq 1X ONCE 03/20/20 14:00 03/20/20 14:20 DC 03/20/20 14:47 40 MEQ Potassium Chloride/Water 100 ml @ 100 mls/hr Q1H 03/25/20 10:00 03/25/20 17:59 Propofol 100 ml @ 2.748 mls/ hr CONT PRN 03/24/20 09:00 03/25/20 01:17 21.9 MLS/HR Sodium Chloride 500 ml @ 500 mls/hr 1X PRN PRN 03/23/20 21:00 Sodium Chloride (Normal Saline Flush) 3 ml QSHIFT PRN 03/20/20 10:30 Vancomycin HCl (Vancomycin Oral Solution) 125 mg BID 03/20/20 21:30 03/24/20 20:45 125 MG Labs: Lab Laboratory Tests Test 03/25/20 05:00 03/25/20 07:30 White Blood Count 7.6 x10^3/uL (4.0-11.0) Red Blood Count 3.26 x10^6/uL (4.30-5.70) Hemoglobin 8.1 g/dL (13.0-17.5) Hematocrit 25.5 % (39.0-53.0) Mean Corpuscular Volume 78 fL (79-100) Mean Corpuscular Hemoglobin 25 pg (25-35) Mean Corpuscular Hemoglobin Concent 32 g/dL (31-37) Red Cell Distribution Width 17.9 % (11.5-14.5) Platelet Count 316 x10^3/uL (140-400) Neutrophils (%) (Auto) 56 % (31-73) Lymphocytes (%) (Auto) 35 % (24-48) Monocytes (%) (Auto) 6 % (0-9) Eosinophils (%) (Auto) 2 % (0-3) Basophils (%) (Auto) 1 % (0-3) Neutrophils # (Auto) 4.3 x10^3/uL (1.8-7.7) Lymphocytes # (Auto) 2.7 x10^3/uL (1.0-4.8) Monocytes # (Auto) 0.5 x10^3/uL (0.0-1.1) Eosinophils # (Auto) 0.2 x10^3/uL (0.0-0.7) Basophils # (Auto) 0.1 x10^3/uL (0.0-0.2) Sodium Level 149 mmol/L (136-145) Potassium Level 3.0 mmol/L (3.5-5.1) Chloride Level 114 mmol/L (98-107) Carbon Dioxide Level 24 mmol/L (21-32) Anion Gap 11 (6-14) Blood Urea Nitrogen 5 mg/dL (8-26) Creatinine 0.9 mg/dL (0.7-1.3) Estimated GFR (Cockcroft-Gault) 107.2 Glucose Level 77 mg/dL (70-99) Calcium Level 8.0 mg/dL (8.5-10.1) O2 Saturation 94 % (92-99) Arterial Blood pH 7.42 (7.35-7.45) Arterial Blood pCO2 at Patient Temp 38 mmHg (35-46) Arterial Blood pO2 at Patient Temp 71 mmHg (75-108) Arterial Blood HCO3 24 mmol/L (21-28) Arterial Blood Base Excess 0 mmol/L (-3-3) FiO2 35 Objective: Assessment: 1. Fever, likely aspiration. UA negative 2. Witnessed cardiac arrest, status post defibrillation. 3. Leukocytosis and lactic acidosis. 4. Human immunodeficiency virus, CD4 was 403 on 01/16 viral load less than 20 on 01/23on Triumeq. 5. Acute hypoxic respiratory failure 6. History of ventricular tachycardia, Coronary artery disease, status post PCI. 7. Status post pacemaker for bradycardia 12/27 at [facility]. 8. History of acute kidney injury, on hemodialysis in the past. 9. 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 10. Substance dependence. UDS positive for cocaine at outside hospital. 11. Hypertension/hyperlipidemia 12. Hypokalemia/hypomagnesemia. 13. H/O Chronic systolic congestive heart failure. 14. History of rectal abscess. 15. History of Necrotizing Pneumonia with Klebsiella at [facility] November 2019 Plan: Plan of Care Continue Zosyn,Zyvox Continue p.o. vancomycin for prophylaxis with history of recurrent C. difficile Continue Triumeq Follow up labs and cultures. Continue supportive care Discussed with nursing. MILLY NICOLE MD Mar 25, 2020 11:32
[2020-03-25] MEDS: POTASSIUM CHLORIDE 10MEQ 100 ML IV SCH ×8 (13:25→19:02)
[2020-03-25] MEDS: VANCOMYCIN 125 MG/2.5 ML ORAL SOLUTION. PO SCH ×2 (13:30→22:20)
--- NOTE | 2020-03-25 14:25 | PDOC ---
PROGRESS NOTES Date of Service DATE: 03/25/20 TIME: 14:23 Subjective Subjective Patient seen and evaluated Objective Objective Vital Signs Date Time Temp Pulse Resp B/P (MAP) Pulse Ox O2 Delivery O2 Flow Rate FiO2 03/25/20 12:00 Mechanical Ventilator 03/25/20 11:30 98 03/25/20 09:00 85 20 104/73 (83) 03/25/20 08:11 5.0 03/25/20 07:00 98.6 98.6 Intake and Output 03/25/20 07:00 Intake Total 2248.3 ml Output Total 3460 ml Balance -1211.7 ml IV Total 2128.3 ml Other 120 ml Output Urine Total 3060 ml Gastric Drainage Total 400 ml Physical Exam Physical Exam Visual exam. Assessment Assessment OOH, witness cardiac arrest; Rhythm upon arrival unknown, although shockable as he was defibrillated x1 with ROSC. . remains intubated/vent Mild troponin elevation; trop highest 0.3 s/p resuscitation. EKG with LBBB Covid negative. H/o Vfib OOH arrest; probable ischemic in nature, antiarrhythmics discontinued in past due to QTc prolongation of 600. EKG at [facility] with QTc 507, 528. Morning EKG. Acute respiratory failure secondary to above; s/p intubation. Followed by the pulmonary service. Possible extubation Thursday. CAD s/p PCI/BMS to the LCx 12/11/19. Treated with ASA,Brilinta initially, which was held due to recurrent GIB requiring transfusions.Due to recent PCI/BMS, Plavix was resumed while at [facility]. ASA was discontinued. ICM; LVEF 15-20%. SSS s/p leadless PPM implantation ([employer] Micra). Device does not store history rhythm data. History of hypertension; now hypotensive. Pressor support as needed. 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 Potassium level 3.0. Being replaced. Comment Review of Relevant I have reviewed the following items joel (where applicable) has been applied. Labs Laboratory Tests Test 03/24/20 08:45 03/25/20 05:00 03/25/20 07:30 O2 Saturation 98 % (92-99) 94 % (92-99) Arterial Blood pH 7.43 (7.35-7.45) 7.42 (7.35-7.45) Arterial Blood pCO2 at Patient Temp 35 mmHg (35-46) 38 mmHg (35-46) Arterial Blood pO2 at Patient Temp 109 mmHg (75-108) 71 mmHg (75-108) Arterial Blood HCO3 23 mmol/L (21-28) 24 mmol/L (21-28) Arterial Blood Base Excess -1 mmol/L (-3-3) 0 mmol/L (-3-3) FiO2 40% vent 35 White Blood Count 7.6 x10^3/uL (4.0-11.0) Red Blood Count 3.26 x10^6/uL (4.30-5.70) Hemoglobin 8.1 g/dL (13.0-17.5) Hematocrit 25.5 % (39.0-53.0) Mean Corpuscular Volume 78 fL (79-100) Mean Corpuscular Hemoglobin 25 pg (25-35) Mean Corpuscular Hemoglobin Concent 32 g/dL (31-37) Red Cell Distribution Width 17.9 % (11.5-14.5) Platelet Count 316 x10^3/uL (140-400) Neutrophils (%) (Auto) 56 % (31-73) Lymphocytes (%) (Auto) 35 % (24-48) Monocytes (%) (Auto) 6 % (0-9) Eosinophils (%) (Auto) 2 % (0-3) Basophils (%) (Auto) 1 % (0-3) Neutrophils # (Auto) 4.3 x10^3/uL (1.8-7.7) Lymphocytes # (Auto) 2.7 x10^3/uL (1.0-4.8) Monocytes # (Auto) 0.5 x10^3/uL (0.0-1.1) Eosinophils # (Auto) 0.2 x10^3/uL (0.0-0.7) Basophils # (Auto) 0.1 x10^3/uL (0.0-0.2) Sodium Level 149 mmol/L (136-145) Potassium Level 3.0 mmol/L (3.5-5.1) Chloride Level 114 mmol/L (98-107) Carbon Dioxide Level 24 mmol/L (21-32) Anion Gap 11 (6-14) Blood Urea Nitrogen 5 mg/dL (8-26) Creatinine 0.9 mg/dL (0.7-1.3) Estimated GFR (Cockcroft-Gault) 107.2 Glucose Level 77 mg/dL (70-99) Calcium Level 8.0 mg/dL (8.5-10.1) Laboratory Tests Test 03/25/20 05:00 03/25/20 07:30 White Blood Count 7.6 x10^3/uL (4.0-11.0) Red Blood Count 3.26 x10^6/uL (4.30-5.70) Hemoglobin 8.1 g/dL (13.0-17.5) Hematocrit 25.5 % (39.0-53.0) Mean Corpuscular Volume 78 fL (79-100) Mean Corpuscular Hemoglobin 25 pg (25-35) Mean Corpuscular Hemoglobin Concent 32 g/dL (31-37) Red Cell Distribution Width 17.9 % (11.5-14.5) Platelet Count 316 x10^3/uL (140-400) Neutrophils (%) (Auto) 56 % (31-73) Lymphocytes (%) (Auto) 35 % (24-48) Monocytes (%) (Auto) 6 % (0-9) Eosinophils (%) (Auto) 2 % (0-3) Basophils (%) (Auto) 1 % (0-3) Neutrophils # (Auto) 4.3 x10^3/uL (1.8-7.7) Lymphocytes # (Auto) 2.7 x10^3/uL (1.0-4.8) Monocytes # (Auto) 0.5 x10^3/uL (0.0-1.1) Eosinophils # (Auto) 0.2 x10^3/uL (0.0-0.7) Basophils # (Auto) 0.1 x10^3/uL (0.0-0.2) Sodium Level 149 mmol/L (136-145) Potassium Level 3.0 mmol/L (3.5-5.1) Chloride Level 114 mmol/L (98-107) Carbon Dioxide Level 24 mmol/L (21-32) Anion Gap 11 (6-14) Blood Urea Nitrogen 5 mg/dL (8-26) Creatinine 0.9 mg/dL (0.7-1.3) Estimated GFR (Cockcroft-Gault) 107.2 Glucose Level 77 mg/dL (70-99) Calcium Level 8.0 mg/dL (8.5-10.1) O2 Saturation 94 % (92-99) Arterial Blood pH 7.42 (7.35-7.45) Arterial Blood pCO2 at Patient Temp 38 mmHg (35-46) Arterial Blood pO2 at Patient Temp 71 mmHg (75-108) Arterial Blood HCO3 24 mmol/L (21-28) Arterial Blood Base Excess 0 mmol/L (-3-3) FiO2 35 Microbiology 03/21/20 Gram Stain Evaluation - Final, Complete 03/21/20 Respiratory Culture - Final, Complete 03/20/20 Blood Culture - Final, Complete NO GROWTH AFTER 5 DAYS Medications Current Medications Norepinephrine Bitartrate 8 mg/ Dextrose 258 ml @ 18.247 mls/ hr CONT PRN IV PER PROTOCOL Last administered on 03/21/20at 09:19; Start 03/20/20 at 04:15 Dopamine HCl/ Dextrose 250 ml @ 17.681 mls/ hr CONT PRN IV SEE I/O RECORD; Start 03/20/20 at 04:30 Heparin Sodium/ Dextrose 250 ml @ 0 mls/hr CONT PRN IV PER PROTOCOL Last administered on 03/21/20at 22:15; Start 03/20/20 at 04:30; Stop 03/22/20 at 10:15; Status DC Heparin Sodium (Porcine) (Heparin Sodium) 2,400 unit PRN Q6HRS PRN IV FOR UFH LEVEL LESS THAN 0.2 Last administered on 03/21/20at 14:17; Start 03/20/20 at 04:30; Stop 03/22/20 at 10:15; Status DC Fentanyl Citrate 30 ml @ 0 mls/hr CONT PRN IV SEE PROTOCOL Last administered on 03/23/20at 06:19; Start 03/20/20 at 04:45; Stop 03/23/20 at 19:11; Status DC Lorazepam (Ativan Inj) 1 mg PRN Q1HR PRN IV SEE COMMENTS Last administered on 03/24/20at 18:39; Start 03/20/20 at 04:45 Fentanyl Citrate (Fentanyl 2ml Vial) 25 mcg PRN Q1HR PRN IV SEE COMMENTS; Start 03/20/20 at 04:45 Fentanyl Citrate (Fentanyl 2ml Vial) 50 mcg PRN Q1HR PRN IV SEE COMMENTS; Start 03/20/20 at 04:45 Chlorhexidine Gluconate (Peridex) 15 ml BID MM ; Start 03/20/20 at 09:00; Stop 03/20/20 at 07:24; Status DC Famotidine (Pepcid Vial) 20 mg BID IVP Last administered on 03/20/20at 08:07; Start 03/20/20 at 09:00; Stop 03/20/20 at 12:52; Status DC Morphine Sulfate (Morphine Sulfate) 2 mg PRN Q1HR PRN IV SEE COMMENTS.; Start 03/20/20 at 04:45 Morphine Sulfate (Morphine Sulfate) 4 mg PRN Q1HR PRN IV SEE COMMENTS.; Start 03/20/20 at 04:45 Midazolam HCl 100 ml @ 0 mls/hr CONT PRN IV SEE PROTOCOL Last administered on 03/25/20 08:09; Start 03/20/20 at 04:45 Docusate Sodium (Colace Solution) 100 mg BID NG Last administered on 03/25/20 08:01; Start 03/20/20 at 09:00 Sodium Chloride 1,000 ml @ 55 mls/hr [id number] IV Last administered on 03/25/20 02:06; Start 03/20/20 at 06:30 Acetaminophen (Tylenol) 650 mg PRN Q6HRS PRN PEG MILD PAIN / TEMP > 100.3'F Last administered on 03/23/20at 12:16; Start 03/20/20 at 09:00 Piperacillin Sod/ Tazobactam Sod (Zosyn Per Pharmacy) 1 each PRN DAILY PRN MC SEE COMMENTS; Start 03/20/20 at 09:30 Piperacillin Sod/ Tazobactam Sod 3.375 gm/Sodium Chloride 50 ml @ 100 mls/hr Q6HRS IV Last administered on 03/25/20 13:30; Start 03/20/20 at 10:00 Magnesium Sulfate 50 ml @ 25 mls/hr 1X ONCE IV Last administered on 03/20/20at 10:21; Start 03/20/20 at 09:45; Stop 03/20/20 at 11:44; Status DC Clopidogrel Bisulfate (Plavix) 75 mg DAILYWBKFT PO Last administered on 03/25/20 08:13; Start 03/20/20 at 12:00 Atorvastatin Calcium (Lipitor) 80 mg QHS PO Last administered on 03/24/20 20:45; Start 03/20/20 at 21:00 Ondansetron HCl (Zofran) 4 mg PRN Q6HRS PRN IVP NAUSEA/VOMITING; Start 03/20/20 at 10:30 Famotidine (Pepcid Vial) 20 mg BID IVP ; Start 03/20/20 at 11:00; Stop 03/20/20 at 12:35; Status DC Info (Icu Electrolyte Protocol) 1 ea DAILY MC Last administered on 03/25/20 08:12; Start 03/21/20 at 09:00 Sodium Chloride (Normal Saline Flush) 3 ml QSHIFT PRN IV AFTER MEDS AND BLOOD DRAWS; Start 03/20/20 at 10:30 Pantoprazole Sodium (PROTONIX VIAL for IV PUSH) 40 mg DAILYAC IVP Last administered on 03/25/20 08:00; Start 03/20/20 at 12:30 Potassium Bicarbonate (Potassium Effervescent Tablet) 40 meq 1X ONCE PEG Last administered on 03/20/20at 14:47; Start 03/20/20 at 14:00; Stop 03/20/20 at 14:20; Status DC Non-Formulary Medication (ABACAVIR/ DOLUTEGRAVIR/ LAMIVUDINE (Triumeq) tablet) 1 ea DAILY PO Last administered on 03/25/20 08:13; Start 03/20/20 at 17:00 Vancomycin HCl (Vancomycin Oral Solution) 125 mg BID PO Last administered on 03/24/20 20:45; Start 03/20/20 at 21:30 Linezolid/Dextrose 300 ml @ 300 mls/hr Q12HR IV Last administered on 03/25/20 08:01; Start 03/21/20 at 09:00 Furosemide (Lasix) 40 mg DAILY IVP Last administered on 03/25/20 08:12; Start 03/22/20 at 11:00 Potassium Chloride/Water 100 ml @ 50 mls/hr 1X ONCE IV Last administered on 12/31/20at 12:58; Start 03/22/20 at 10:30; Stop 03/22/20 at 12:29; Status DC Fentanyl Citrate 55 ml @ 0 mls/hr CONT PRN IV SEE PROTOCOL Last administered on 03/25/20at 08:11; Start 03/23/20 at 19:15 Dexmedetomidine HCl 400 mcg/ Sodium Chloride 100 ml @ 0 mls/hr CONT PRN IV PER PROTOCOL Last administered on 03/24/20at 03:33; Start 03/23/20 at 21:00; Stop 03/24/20 at 08:52; Status DC Sodium Chloride 500 ml @ 500 mls/hr 1X PRN PRN IV SEE COMMENTS; Start 03/23/20 at 21:00 Atropine Sulfate (ATROPINE 0.5mg SYRINGE) 0.5 mg PRN Q5MIN PRN IV SEE COMMENTS; Start 03/23/20 at 21:00 Haloperidol Lactate (Haldol Inj) 5 mg PRN Q6HRS PRN IVP AGITATION; Start 03/23/20 at 21:00; Stop 03/24/20 at 08:52; Status DC Propofol 100 ml @ 2.748 mls/ hr CONT PRN IV PER PROTOCOL Last administered on 03/25/20at 01:17; Start 03/24/20 at 09:00 Potassium Chloride/Water 100 ml @ 100 mls/hr Q1H IV Last administered on 03/25/20at 13:25; Start 03/25/20 at 10:00; Stop 03/25/20 at 17:59 Potassium Chloride/Water 100 ml @ 100 mls/hr Q1H IV ; Start 03/25/20 at 15:00; Stop 03/25/20 at 13:59; Status DC Active Scripts Active Furosemide 40 Mg Tablet 40 Mg PO DAILY 90 Days Tramadol Hcl 50 Mg Tablet 50 Mg PO PRN Q6HRS PRN 6 Days Metoprolol Succinate ( Xl ) (Metoprolol Succinate) 25 Mg Tab.er.24h 12.5 Mg PO DAILY 90 Days Clopidogrel (Clopidogrel Bisulfate) 75 Mg Tablet 75 Mg PO DAILYWBKFT 90 Days Lisinopril 10 Mg Tablet 1 Tab PO DAILY 90 Days Atorvastatin Calcium 80 Mg Tablet 80 Mg PO QHS 90 Days Reported Klor-Con M20 (Potassium Chloride) 20 Meq Tab.er.prt 20 Meq PO TID Pantoprazole Sodium (Pantoprazole Sodium) 40 Mg Tablet.dr 40 Mg PO BID Duoneb 0.5-3(2.5) Mg/3 Ml (Albuterol/Ipratropium) 3 Ml Ampul.neb 3 Ml NEB PRN Q6HRS PRN Acetaminophen 325 Mg Tablet 1 Tab PO PRN Q6HRS PRN 24 Days Triumeq Tablet (Abacavir/Dolutegravir/Lamivudi) 1 Each Tablet 1 Tab PO DAILY 30 Days Gabapentin (Gabapentin) 300 Mg Capsule 100 Mg PO TID Children's Aspirin (Aspirin) 81 Mg Tab.chew 1 Tab PO DAILY 30 Days Vitals/I & O Vital Sign - Last 24 Hours 03/24/20 03/24/20 03/24/20 03/24/20 15:00 16:00 16:00 16:04 Temp 98.2 98.2 Pulse 86 93 Resp 20 20 B/P (MAP) 96/60 (72) 124/75 (91) Pulse Ox 98 98 97 O2 Delivery Ventilator Mechanical Ventilator Ventilator Ventilator 03/24/20 03/24/20 03/24/20 03/24/20 17:00 18:00 19:00 20:00 Temp 99.2 99.2 Pulse 98 102 92 95 Resp 20 24 20 20 B/P (MAP) 143/88 (106) 127/90 (102) 90/50 (63) 124/74 (91) Pulse Ox 100 97 95 97 O2 Delivery Ventilator Ventilator Ventilator Ventilator 03/24/20 03/24/20 03/24/20 03/24/20 20:00 20:37 21:00 21:26 Pulse 95 Resp 20 20 B/P (MAP) 137/84 (101) Pulse Ox 97 98 O2 Delivery Mechanical Ventilator Ventilator Ventilator Ventilator 03/24/20 03/24/20 03/24/20 03/24/20 22:00 22:00 23:00 23:10 Pulse 96 98 Resp 20 20 20 B/P (MAP) 128/71 (90) 133/88 (103) Pulse Ox 97 99 97 O2 Delivery Ventilator Ventilator Ventilator Ventilator 03/25/20 03/25/20 03/25/20 03/25/20 00:00 00:00 01:00 02:00 Temp 99.5 99.5 Pulse 104 100 89 Resp 22 24 22 B/P (MAP) 102/64 (77) 166/72 (103) 113/64 (80) Pulse Ox 97 97 97 O2 Delivery Ventilator Mechanical Ventilator Ventilator Ventilator 03/25/20 03/25/20 03/25/20 03/25/20 03:00 03:58 04:00 04:00 Temp 99.2 99.2 Pulse 88 84 Resp 20 20 B/P (MAP) 96/59 (71) 104/65 (78) Pulse Ox 97 97 96 O2 Delivery Ventilator Ventilator Ventilator Mechanical Ventilator 03/25/20 03/25/20 03/25/20 03/25/20 05:00 06:00 07:00 07:30 Temp 98.6 98.6 Pulse 82 92 87 Resp 20 20 20 B/P (MAP) 90/54 (66) 114/73 (87) 120/69 (86) Pulse Ox 97 99 100 98 O2 Delivery Ventilator Ventilator Ventilator Ventilator 03/25/20 03/25/20 03/25/20 03/25/20 08:00 08:00 08:11 08:41 Pulse 91 Resp 20 20 B/P (MAP) 82/51 (61) Pulse Ox 99 98 97 O2 Delivery Ventilator Mechanical Ventilator Ventilator O2 Flow Rate 5.0 03/25/20 03/25/20 03/25/20 09:00 11:30 12:00 Pulse 85 Resp 20 B/P (MAP) 104/73 (83) Pulse Ox 97 98 O2 Delivery Ventilator Ventilator Mechanical Ventilator Intake and Output 03/24/20 03/24/20 03/25/20 15:00 23:00 07:00 Intake Total 470 ml 265 ml 1513.3 ml Output Total 1400 ml 1330 ml 730 ml Balance -930 ml -1065 ml 783.3 ml Justifications for Admission Other Justification CARDIAC ARREST YAMILE HDEZ MD Mar 25, 2020 14:25
[2020-03-25] MEDS ORDERED: POTASSIUM CHLORIDE 20MEQ 100 ML IV SCH (15:00)
[2020-03-25] MEDS: ATORVASTATIN CALCIUM 40 MG TABLET. PO SCH (22:20)
[2020-03-26] VITALS (27 sets, daily range): BP systolic 79–197; BP diastolic 38–102
[2020-03-26] MEDS: PIPERACILLIN/TAZOBACTAM 3.375 GM in IV NORMAL SALINE 50ML 50 ML IV SCH ×5 (00:40→23:18)
[2020-03-26] MEDS: MIDAZOLAM 100mg/100ml NS BAG 100 ML IV PRN ×2 (02:42→19:20)
[2020-03-26] MEDS: fentaNYL HIGH DOSE PCA 55 ML IV PRN ×2 (05:07→19:21)
[2020-03-26 07:57] LABS: ALBUMIN 2.3 g/dL (3.4-5.0); ALBUMIN/GLOBULIN RATIO 0.5 (1.0-1.7); CALCIUM 8.6 mg/dL (8.5-10.1); GFR 94.9; POTASSIUM 3.3 mmol/L (3.5-5.1); TOTAL BILIRUBIN 0.6 mg/dL (0.2-1.0); TOTAL PROTEIN 6.7 g/dL (6.4-8.2)
--- NOTE | 2020-03-26 08:05 | PDOC ---
Infectious Disease Note Subjective Subjective Patient intubated/sedated No fevers last 24 hours No acute issues per discussion with MYRON DRISCOLL no n/v/d/ Vital Sign Vital Signs Vital Signs Date Time Temp Pulse Resp B/P (MAP) Pulse Ox O2 Delivery O2 Flow Rate FiO2 03/26/20 08:00 98 Ventilator 03/26/20 06:00 81 20 109/78 (88) 03/26/20 04:00 99.6 99.6 03/25/20 08:11 5.0 Physical Exam PHYSICAL EXAM GENERAL: Intubated, sedated. HEENT: Conjunctival suffusion. Pupils equal, reactive. ETT OGT present. NECK: Supple. LUNGS: Clear anteriorly. HEART: S1, S2, tachycardia. ABDOMEN: Obese, mildly distended. Bowel sounds present. EXTREMITIES: No edema or cyanosis. DERMATOLOGIC: Warm and dry. No generalized rash. NEUROLOGIC: Unable to assess. Labs Lab Laboratory Tests Test 03/26/20 07:10 Sodium Level 148 mmol/L (136-145) Potassium Level 3.3 mmol/L (3.5-5.1) Chloride Level 111 mmol/L (98-107) Carbon Dioxide Level 25 mmol/L (21-32) Anion Gap 12 (6-14) Blood Urea Nitrogen 7 mg/dL (8-26) Creatinine 1.0 mg/dL (0.7-1.3) Estimated GFR (Cockcroft-Gault) 94.9 BUN/Creatinine Ratio 7 (6-20) Glucose Level 77 mg/dL (70-99) Calcium Level 8.6 mg/dL (8.5-10.1) Magnesium Level 1.9 mg/dL (1.8-2.4) Total Bilirubin 0.6 mg/dL (0.2-1.0) Aspartate Amino Transf (AST/SGOT) 14 U/L (15-37) Alanine Aminotransferase (ALT/SGPT) 14 U/L (16-63) Alkaline Phosphatase 60 U/L (46-116) Total Protein 6.7 g/dL (6.4-8.2) Albumin 2.3 g/dL (3.4-5.0) Albumin/Globulin Ratio 0.5 (1.0-1.7) Micro Microbiology 03/21/20 Gram Stain Evaluation - Final, Complete 03/21/20 Respiratory Culture - Final, Complete 03/20/20 Blood Culture - Final, Complete NO GROWTH AFTER 5 DAYS Objective Assessment 1. Fever, likely aspiration. UA negative 2. Witnessed cardiac arrest, status post defibrillation. 3. Leukocytosis and lactic acidosis. 4. Human immunodeficiency virus, CD4 was 403 on 01/16 viral load less than 20 on 01/23on Triumeq. 5. Acute hypoxic respiratory failure 6. History of ventricular tachycardia, Coronary artery disease, status post PCI. 7. Status post pacemaker for bradycardia 12/27 at [place]. 8. History of acute kidney injury, on hemodialysis in the past. 9. 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 10. Substance dependence. UDS positive for cocaine at outside hospital. 11. Hypertension/hyperlipidemia 12. Hypokalemia/hypomagnesemia. 13. H/O Chronic systolic congestive heart failure. 14. History of rectal abscess. 15. History of Necrotizing Pneumonia with Klebsiella at [facility] November 2019 Plan Plan of Care Continue Zosyn,Zyvox Continue p.o. vancomycin for prophylaxis with history of recurrent C. difficile Continue Triumeq Follow up labs and cultures. Continue supportive care Discussed with nursing. MARLA NICOLE MD Mar 26, 2020 08:05
[2020-03-26 08:07] LABS: BILIRUBIN,URINE NEGATIVE (NEG); CLARITY,URINE CLEAR; COLOR,URINE YELLOW; NITRITE,URINE NEGATIVE (NEG); PROTEIN,URINE 30 mg/dL (NEG-TRACE); UROBILINOGEN,URINE 0.2 mg/dL (0.2 mg/dL)
[2020-03-26] MEDS ORDERED: POTASSIUM BICARB 20 MEQ EFFERVESCENT TABLET. PO ONE (08:15)
--- NOTE | 2020-03-26 08:26 | PDOC ---
[employer] PROGRESS NOTE Date of Service DOS: DATE: 03/26/20 TIME: 08:23 Chief Complaint Chief Complaint VTE Prophylaxis Ordered VTE Prophylaxis Devices: Yes VTE Pharmacological Prophylaxi: Yes Assessment/Plan Assessment/Plan ASSESSMENT 1. out of hospital arrest , witness cardiac arrest; Defibrillation // AMI ruled out. 2. H/o Vfib probable ischemic in nature, antiarrhythmics discontinued in past due to QTc prolongation of 600. 3. Acute hypoxic respiratory failure requiring vent support 4. CAD s/p PCI/BMS to the LCx 12/11/19. Treated with ASA,Brilinta initially, which was held due to recurrent GIB requiring transfusions.Due to recent PCI/BMS, Plavix was resumed while at [facility]. ASA was d/c'd 5. Chronic systolic CHF 6. ischemic cardiomyopathy LVEF 20-25%. 7. SSS s/p leadless PPM 8. Hypertension; // requiring pressor support 9. Hypokalemia, hypomagnesemia 10. H/o DAIJA requiringHD; renal function improvedand HD catheter removed 11. 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 HIV 13. Substance abuse; UDS + cocaine , ALCOHOL, TOBACCO 14. Leukocytosis, fevers. ? sepsis Covid negative. 15. H/o Vfib OOH arrest; probable ischemic in nature, antiarrhythmics discontinued in past due to QTc prolongation of 600. EKG at [facility] with QTc 507, 528. 16. Human immunodeficiency virus, CD4 was 403 on 01/16 viral load less than 20 on 01/23on [facility]. 17. History of ventricular tachycardia, Coronary artery disease, status post PCI. 18. Status post pacemaker for bradycardia 12/27 at [place]. 19. hypernatremia, volume excess plan icu bed cardiology consult pulm consult Device interrogation Replace Mg, lytes Secondary prevention measures as able Resume Plavix. No ASA due to recent GIB Monitor LFTs Pressor support; wean as able Hold lisinopril, Toprol with hypotension Echo vent management GI CONSULT COVID 19 SCREEN vent support assist-control mode 50% and PEEP of 5 On heparin drip per cardiology hiv screen Echo to assess LV systolic function if COVID PCR negative Tube feeding on hold per GI, concern for ileus follow other GI recommendations vent support assist-control mode 40% and a PEEP of 5 Continue Zosyn,Zyvox Continue p.o. vancomycin for prophylaxis with history of recurrent C. difficile Continue Triumeq Follow up labs and cultures. 35% and a PEEP of 5 dec ns rate prognosis very guarded 39 MIN CC TIME History of Present Illness History of Present Illness Identification/Chief Complaint Chief Complaint admitted to icu , out of hospial arrest CAD s/p PCI/stent, cardiomyopathy, and prior cardiac arrest, presented secondary to cardiac arrest at home. Was at home with partner, Stevenson, watching television. Patient suddenly started breathing more deeply and began gasping for air. Eyes were wide and glassy. Was unresponsive. Partner was unable to feel pulse so he put him on the floor, called EMS and began chest compressions. Partner reports him drinking 3 malt beverages that evening while watching TV. No known sick contacts. EMS arrived within minutes. ROSC returned following one defibrillation. Although partner declined drug use, Narcan was administered en route due to pinpoint pupi ls. Limited effect from the Narcan. UDS was + for cocaine. IS COVID 19 PUI hx cardiac arrest on December 19, 2019. Patient was apparently found arrest in his car EMS noted in v-fib. ROSC was achieved following 1 defibrillation and 1 round of epi.//activated as STEMI with LBBB. Emergent cath notable for blockage of left circumflex. //PCI/BMS to the Left circumflex. went into Vfib in laborer pipelines and was initiated on Amiodarone therapy. LVEF noted at 20-25%. Developed DAIJA due to cardiogenic shock. had multiple episodes of bradycardia/significant pauses mostly related to suctioning. then leadlessPPM placement.Treated for Klebsiella PNA as well. course further complicated by GIB requiring tranfusion. 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 / Patient seen and evaluated in ICU. On vent FiO2 35%, PEEP 5. Afebrile. Continue Zosyn, Zyvox, and p.o. vancomycin. Chart and labs reviewed, discussed with RN. Vitals/I&O Vitals/I&O: Vital Signs Date Time Temp Pulse Resp B/P (MAP) Pulse Ox O2 Delivery O2 Flow Rate FiO2 03/26/20 08:00 98 Ventilator 03/26/20 06:00 81 20 109/78 (88) 03/26/20 04:00 99.6 99.6 03/25/20 08:11 5.0 I & O 03/25/20 03/25/20 03/26/20 15:00 23:00 07:00 Intake Total 0 ml 1902 ml 1239.9 ml Output Total 130 ml 600 ml 455 ml Balance -130 ml 1302 ml 784.9 ml Physical Exam Physical Exam: GENERAL: Intubated, sedated. HEENT: Conjunctival suffusion. Pupils equal, reactive. ETT OGT present. NECK: Supple. LUNGS: Clear anteriorly. HEART: S1, S2, tachycardia. ABDOMEN: Obese, mildly distended. Bowel sounds present. EXTREMITIES: No edema or cyanosis. DERMATOLOGIC: Warm and dry. No generalized rash. NEUROLOGIC: Unable to assess. General: Other (Intubated) Heart: Regular rate Lungs: Clear Abdomen: Normal bowel sounds Extremities: No cyanosis, No edema, Normal pulses Skin: No significant lesion Labs Labs: Laboratory Tests Test 03/26/20 07:10 Sodium Level 148 mmol/L (136-145) Potassium Level 3.3 mmol/L (3.5-5.1) Chloride Level 111 mmol/L (98-107) Carbon Dioxide Level 25 mmol/L (21-32) Anion Gap 12 (6-14) Blood Urea Nitrogen 7 mg/dL (8-26) Creatinine 1.0 mg/dL (0.7-1.3) Estimated GFR (Cockcroft-Gault) 94.9 BUN/Creatinine Ratio 7 (6-20) Glucose Level 77 mg/dL (70-99) Calcium Level 8.6 mg/dL (8.5-10.1) Magnesium Level 1.9 mg/dL (1.8-2.4) Total Bilirubin 0.6 mg/dL (0.2-1.0) Aspartate Amino Transf (AST/SGOT) 14 U/L (15-37) Alanine Aminotransferase (ALT/SGPT) 14 U/L (16-63) Alkaline Phosphatase 60 U/L (46-116) Total Protein 6.7 g/dL (6.4-8.2) Albumin 2.3 g/dL (3.4-5.0) Albumin/Globulin Ratio 0.5 (1.0-1.7) Comment Review of Relevant I have reviewed the following items joel (where applicable) has been applied. Medications: Current Medications Medications (Trade) Dose Ordered Sig/Guy Route PRN Reason Start Time Stop Time Status Last Admin Dose Admin Potassium Chloride/Water 100 ml @ 100 mls/hr Q1H IV 03/25/20 10:00 03/25/20 17:59 DC 03/25/20 19:02 Justifications for Admission Other Justification CARDIAC ARREST ROCIO MOHAN MD Mar 26, 2020 08:26
[2020-03-26 08:32] LABS: BASE EXCESS ABG -3 mmol/L (-3-3); HCO3 ABG 23 mmol/L (21-28); PCO2 ABG 40 mmHg (35-46); PO2 ABG 105 mmHg (75-108); SAT O2 ABG 97 % (92-99)
[2020-03-26] MEDS: DOCUSATE 100 MG/10 ML SOLUTION. NG SCH (08:35)
[2020-03-26 08:36] LABS: BACTERIA,URINE 0 /HPF (0-FEW); RBC,URINE OCC /HPF (0-2)
[2020-03-26] MEDS: VANCOMYCIN 125 MG/2.5 ML ORAL SOLUTION. PO SCH ×2 (08:36→21:06)
[2020-03-26] MEDS: PANTOPRAZOLE IV PUSH 40 MG VIAL. IVP SCH (08:36)
[2020-03-26] MEDS: CLOPIDOGREL BISULFATE 75 MG TABLET PO SCH (08:36)
[2020-03-26] MEDS: DOLUTEGRAVIR PO SCH (08:37)
[2020-03-26] MEDS: ABACAVIR PO SCH (08:37)
[2020-03-26] MEDS: LAMIVUDINE PO SCH (08:37)
[2020-03-26] MEDS: ELECTROLYTE (ICU) PROTOCOL. MC SCH (08:37)
--- NOTE | 2020-03-26 09:03 | RAD ---
EXAM: Chest, single view. HISTORY: Respiratory failure. COMPARISON: 03/21/2020 FINDINGS: A frontal view of the chest obtained. There has been interval decrease in diffuse interstit ial infiltrate. No consolidation, pleural effusion or pneumothorax is seen. There is a stable promine nt cardiac silhouette. There is an endotracheal tube within the mid trachea. There is nasogastric tub e within the stomach. IMPRESSION: Decrease in diffuse interstitial infiltrate. Electronically signed by: Georgina Galeas MD (03/26/2020 9:01 AM) [id number]
--- NOTE | 2020-03-26 10:38 | NUR ---
Patient had to be re-sedated because he was thrashing around in the bed, not following commands and causing his blood pressure to increase. Tried to calm him down with deep breathing techniques and family at the bedside without success.
--- NOTE | 2020-03-26 10:42 | PDOC ---
Date of Service: DATE: 03/26/20 TIME: 10:38 Subjective: Subjective: Significant other present - recalls some events of previous GI bleed - no new information. Objective: Objective: D/w nurse - should be extubated today - NGT still to suction, unclear how much output, stooled 03/23/20, no bleeding. Vital Signs: Vital Signs Date Time Temp Pulse Resp B/P (MAP) Pulse Ox O2 Delivery O2 Flow Rate FiO2 03/26/20 09:00 115 20 151/90 (110) 97 Ventilator 03/26/20 07:00 97.9 97.9 03/25/20 08:11 5.0 Labs: Laboratory Tests Test 03/26/20 07:00 03/26/20 07:10 03/26/20 08:30 Urine Collection Type Unknown Urine Color Yellow Urine Clarity Clear Urine pH 6.0 Urine Specific [place] 1.025 Urine Protein 30 mg/dL Urine Glucose (UA) Negative mg/dL Urine Ketones (Stick) Trace mg/dL Urine Blood Negative Urine Nitrite Negative Urine Bilirubin Negative Urine Urobilinogen Dipstick 0.2 mg/dL Urine Leukocyte Esterase Negative Urine RBC Occ /HPF Urine WBC 5-10 /HPF Urine Squamous Epithelial Cells Occ /LPF Urine Bacteria 0 /HPF Urine Mucus Slight /LPF Sodium Level 148 mmol/L Potassium Level 3.3 mmol/L Chloride Level 111 mmol/L Carbon Dioxide Level 25 mmol/L Anion Gap 12 Blood Urea Nitrogen 7 mg/dL Creatinine 1.0 mg/dL Estimated GFR (Cockcroft-Gault) 94.9 BUN/Creatinine Ratio 7 Glucose Level 77 mg/dL Calcium Level 8.6 mg/dL Magnesium Level 1.9 mg/dL Total Bilirubin 0.6 mg/dL Aspartate Amino Transf (AST/SGOT) 14 U/L Alanine Aminotransferase (ALT/SGPT) 14 U/L Alkaline Phosphatase 60 U/L Total Protein 6.7 g/dL Albumin 2.3 g/dL Albumin/Globulin Ratio 0.5 O2 Saturation 97 % Arterial Blood pH 7.36 Arterial Blood pCO2 at Patient Temp 40 mmHg Arterial Blood pO2 at Patient Temp 105 mmHg Arterial Blood HCO3 23 mmol/L Arterial Blood Base Excess -3 mmol/L FiO2 35% 5/5 GRAM STAIN EVALUATION Final Final This specimen is of good quality and is acceptable for routine bacterial culture. Culture results to follow. GRAM POSITIVE COCCI:FEW SQUAMOUS EPI CELL:NONE SEEN PMN (WBCs):MODERATE RESPIRATORY CULTURE Final Final FEW Mixed upper respiratory yennifer on 03/23/20 at 0917 FEW Mixed upper respiratory yennifer on 03/24/20 at 1025 BLOOD CULTURE Final NO GROWTH AFTER 5 DAYS Imaging: CXR 03/26 IMPRESSION: Decrease in diffuse interstitial infiltrate. PE: GEN: intubated LUNGS: vent/clear HEART:tachycardic ABD: soft NEURO/PSYCH: awake, mittens A/P: S/p arrest - h/o CAD, +cocaine Anemia, h/o GI bleeding COVID negative -- Still no reports of bleeding. Continue PPI, support from GI standpoint. Justicifation of Admission Dx: Justifications for Admission: Justification of Admission Dx: Yes YNES CLEARY Mar 26, 2020 10:42
--- NOTE | 2020-03-26 11:25 | PDOC ---
PULMONARY PROGRESS NOTES DATE: 03/26/20 TIME: 11:25 Subjective Pt. is on Fi02 35% 5/5 pressure support trial No other concerns from nursing at this time Vitals Vital Signs Date Time Temp Pulse Resp B/P (MAP) Pulse Ox O2 Delivery O2 Flow Rate FiO2 03/26/20 09:00 115 20 151/90 (110) 97 Ventilator 03/26/20 07:00 97.9 97.9 03/25/20 08:11 5.0 Comments Intubated/sedated Lungs: Clear Extremities: No Edema Labs Laboratory Tests Test 03/25/20 05:00 03/25/20 07:30 03/26/20 07:00 03/26/20 07:10 White Blood Count 7.6 x10^3/uL (4.0-11.0) Red Blood Count 3.26 x10^6/uL (4.30-5.70) Hemoglobin 8.1 g/dL (13.0-17.5) Hematocrit 25.5 % (39.0-53.0) Mean Corpuscular Volume 78 fL (79-100) Mean Corpuscular Hemoglobin 25 pg (25-35) Mean Corpuscular Hemoglobin Concent 32 g/dL (31-37) Red Cell Distribution Width 17.9 % (11.5-14.5) Platelet Count 316 x10^3/uL (140-400) Neutrophils (%) (Auto) 56 % (31-73) Lymphocytes (%) (Auto) 35 % (24-48) Monocytes (%) (Auto) 6 % (0-9) Eosinophils (%) (Auto) 2 % (0-3) Basophils (%) (Auto) 1 % (0-3) Neutrophils # (Auto) 4.3 x10^3/uL (1.8-7.7) Lymphocytes # (Auto) 2.7 x10^3/uL (1.0-4.8) Monocytes # (Auto) 0.5 x10^3/uL (0.0-1.1) Eosinophils # (Auto) 0.2 x10^3/uL (0.0-0.7) Basophils # (Auto) 0.1 x10^3/uL (0.0-0.2) Sodium Level 149 mmol/L (136-145) 148 mmol/L (136-145) Potassium Level 3.0 mmol/L (3.5-5.1) 3.3 mmol/L (3.5-5.1) Chloride Level 114 mmol/L (98-107) 111 mmol/L (98-107) Carbon Dioxide Level 24 mmol/L (21-32) 25 mmol/L (21-32) Anion Gap 11 (6-14) 12 (6-14) Blood Urea Nitrogen 5 mg/dL (8-26) 7 mg/dL (8-26) Creatinine 0.9 mg/dL (0.7-1.3) 1.0 mg/dL (0.7-1.3) Estimated GFR (Cockcroft-Gault) 107.2 94.9 Glucose Level 77 mg/dL (70-99) 77 mg/dL (70-99) Calcium Level 8.0 mg/dL (8.5-10.1) 8.6 mg/dL (8.5-10.1) O2 Saturation 94 % (92-99) Arterial Blood pH 7.42 (7.35-7.45) Arterial Blood pCO2 at Patient Temp 38 mmHg (35-46) Arterial Blood pO2 at Patient Temp 71 mmHg (75-108) Arterial Blood HCO3 24 mmol/L (21-28) Arterial Blood Base Excess 0 mmol/L (-3-3) FiO2 35 Urine Collection Type Unknown Urine Color Yellow Urine Clarity Clear Urine pH 6.0 (<5.0-8.0) Urine Specific [place] 1.025 (1.000-1.030) Urine Protein 30 mg/dL (NEG-TRACE) Urine Glucose (UA) Negative mg/dL (NEG) Urine Ketones (Stick) Trace mg/dL (NEG) Urine Blood Negative (NEG) Urine Nitrite Negative (NEG) Urine Bilirubin Negative (NEG) Urine Urobilinogen Dipstick 0.2 mg/dL (0.2 mg/dL) Urine Leukocyte Esterase Negative (NEG) Urine RBC Occ /HPF (0-2) Urine WBC 5-10 /HPF (0-4) Urine Squamous Epithelial Cells Occ /LPF Urine Bacteria 0 /HPF (0-FEW) Urine Mucus Slight /LPF BUN/Creatinine Ratio 7 (6-20) Magnesium Level 1.9 mg/dL (1.8-2.4) Total Bilirubin 0.6 mg/dL (0.2-1.0) Aspartate Amino Transf (AST/SGOT) 14 U/L (15-37) Alanine Aminotransferase (ALT/SGPT) 14 U/L (16-63) Alkaline Phosphatase 60 U/L (46-116) Total Protein 6.7 g/dL (6.4-8.2) Albumin 2.3 g/dL (3.4-5.0) Albumin/Globulin Ratio 0.5 (1.0-1.7) Test 03/26/20 08:30 O2 Saturation 97 % (92-99) Arterial Blood pH 7.36 (7.35-7.45) Arterial Blood pCO2 at Patient Temp 40 mmHg (35-46) Arterial Blood pO2 at Patient Temp 105 mmHg (75-108) Arterial Blood HCO3 23 mmol/L (21-28) Arterial Blood Base Excess -3 mmol/L (-3-3) FiO2 35% 07/25 Laboratory Tests Test 03/26/20 07:00 03/26/20 07:10 03/26/20 08:30 Urine Collection Type Unknown Urine Color Yellow Urine Clarity Clear Urine pH 6.0 (<5.0-8.0) Urine Specific [place] 1.025 (1.000-1.030) Urine Protein 30 mg/dL (NEG-TRACE) Urine Glucose (UA) Negative mg/dL (NEG) Urine Ketones (Stick) Trace mg/dL (NEG) Urine Blood Negative (NEG) Urine Nitrite Negative (NEG) Urine Bilirubin Negative (NEG) Urine Urobilinogen Dipstick 0.2 mg/dL (0.2 mg/dL) Urine Leukocyte Esterase Negative (NEG) Urine RBC Occ /HPF (0-2) Urine WBC 5-10 /HPF (0-4) Urine Squamous Epithelial Cells Occ /LPF Urine Bacteria 0 /HPF (0-FEW) Urine Mucus Slight /LPF Sodium Level 148 mmol/L (136-145) Potassium Level 3.3 mmol/L (3.5-5.1) Chloride Level 111 mmol/L (98-107) Carbon Dioxide Level 25 mmol/L (21-32) Anion Gap 12 (6-14) Blood Urea Nitrogen 7 mg/dL (8-26) Creatinine 1.0 mg/dL (0.7-1.3) Estimated GFR (Cockcroft-Gault) 94.9 BUN/Creatinine Ratio 7 (6-20) Glucose Level 77 mg/dL (70-99) Calcium Level 8.6 mg/dL (8.5-10.1) Magnesium Level 1.9 mg/dL (1.8-2.4) Total Bilirubin 0.6 mg/dL (0.2-1.0) Aspartate Amino Transf (AST/SGOT) 14 U/L (15-37) Alanine Aminotransferase (ALT/SGPT) 14 U/L (16-63) Alkaline Phosphatase 60 U/L (46-116) Total Protein 6.7 g/dL (6.4-8.2) Albumin 2.3 g/dL (3.4-5.0) Albumin/Globulin Ratio 0.5 (1.0-1.7) O2 Saturation 97 % (92-99) Arterial Blood pH 7.36 (7.35-7.45) Arterial Blood pCO2 at Patient Temp 40 mmHg (35-46) Arterial Blood pO2 at Patient Temp 105 mmHg (75-108) Arterial Blood HCO3 23 mmol/L (21-28) Arterial Blood Base Excess -3 mmol/L (-3-3) FiO2 35% 07/25 Medications Active Scripts Medications Dose Route/Sig Max Daily Dose Days Date Category Furosemide 40 Mg Tablet 40 Mg PO DAILY 02/02/20 Rx Tramadol Hcl 50 Mg Tablet 50 Mg PO PRN Q6HRS PRN 6 02/02/20 Rx Metoprolol Succinate ( Xl ) (Metoprolol Succinate) 25 Mg Tab.er.24h 12.5 Mg PO DAILY 02/02/20 Rx Clopidogrel (Clopidogrel Bisulfate) 75 Mg Tablet 75 Mg PO DAILYWBKFT 02/02/20 Rx Lisinopril 10 Mg Tablet 1 Tab PO DAILY 02/02/20 Rx Atorvastatin Calcium 80 Mg Tablet 80 Mg PO QHS 02/02/20 Rx Klor-Con M20 (Potassium Chloride) 20 Meq Tab.er.prt 20 Meq PO TID 01/31/20 Reported Pantoprazole Sodium (Pantoprazole Sodium) 40 Mg Tablet.dr 40 Mg PO BID 01/31/20 Reported Duoneb 0.5-3(2.5) Mg/3 Ml (Albuterol/Ipratropium) 3 Ml Ampul.neb 3 Ml NEB PRN Q6HRS PRN 01/31/20 Reported Acetaminophen 325 Mg Tablet 1 Tab PO PRN Q6HRS PRN 24 01/31/20 Reported Triumeq Tablet (Abacavir/Dolutegravir/Lamivudi) 1 Each Tablet 1 Tab PO DAILY 30 01/31/20 Reported Gabapentin (Gabapentin) 300 Mg Capsule 100 Mg PO TID 01/31/20 Reported Children's Aspirin (Aspirin) 81 Mg Tab.chew 1 Tab PO DAILY 30 01/31/20 Reported Comments CXR 03/26/20 IMPRESSION: Decrease in diffuse interstitial infiltrate. Impression . IMPRESSION: 1. Acute hypoxemic respiratory failure secondary to mco-bf-cchynuor cardiopulmonary arrest. 2. History of ventricular fibrillation with previous [id number]-[id number] cardiac arrest. 3. History of coronary artery disease, status post percutaneous coronary intervention to the circumflex. 4. History of gastrointestinal bleed. 5. Chronic systolic heart failure. 6. Ischemic cardiomyopathy, ejection fraction 15%. 7. Status post pacemaker implantation. 8. Hypertension. 9. Hypokalemia. 10. Previous kidney injury requiring hemodialysis. 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 12. Human immunodeficiency virus. 13. Polysubstance use. Plan . Continue current support, tolerated PS 5/5 well, proceed with extubation Supplemental oxygen as needed Continue empiric antibiotics per infectious disease: Zyvox/vancomycin/Zosyn Follow cultures, respiratory culture growing out gram-positive cocci Follow other cardiology recommendations Follow GI recs PT/OT//ST DVT/GI prophylaxis Discussed with RN and RT Critical care time [id number] DAMIÁN HASTINGS MD Mar 26, 2020 11:25
--- NOTE | 2020-03-26 15:20 | EKG ---
[facility] [address] [place] [address] Test Date: 2020-03-26 Test Time: 15:16:44 Pat Name: DENIA RODRIGUES Department: Room: 109 1 Gender: M [employer]: MONISHA : 1965 Requested By: YAMILE HDEZ Order Number: [id number] Reading MD: Measurements Intervals [place] Rate: 106 P: 90 [place]: 176 QRS: 52 QRSD: 154 T: 119 QT: 380 QTc: 507 Interpretive Statements SINUS TACHYCARDIA VENTRICULAR PREMATURE COMPLEX(ES) VENTRICULAR ESCAPE COMPLEX(ES) LEFT ATRIAL ABNORMALITY LEFT BUNDLE BRANCH BLOCK ABNORMAL ECG RI6.02 Compared to ECG 03/22/2020 11:01:39 Ventricular escape complex(es) now present Atrial abnormality now present Left bundle-branch block now present Sinus rhythm no longer present
--- NOTE | 2020-03-26 15:51 | NUR ---
SS following up with discharge planning. SS reviewed pt chart and discussed with pt RN. Pt extubated today and is currently on nasal canula oxygen at five liters. COVID19 negative. HIV positive. Pt on IV Zosyn and IV Zyvox. SS will continue to follow for discharge planning.
[2020-03-26] MEDS: IV NORMAL SALINE 1000ML BAG 1,000 ML IV SCH (16:10)
[2020-03-26] MEDS: ONDANSETRON PF 4 MG/2 ML VIAL. IVP PRN (18:17)
--- NOTE | 2020-03-26 18:27 | PDOC ---
PROGRESS NOTES Date of Service DATE: 03/26/20 TIME: 18:25 Subjective Subjective Patient seen and examined Objective Objective Vital Signs Date Time Temp Pulse Resp B/P (MAP) Pulse Ox O2 Delivery O2 Flow Rate FiO2 03/26/20 17:55 120 26 165/86 (112) 94 Nasal Cannula 5.0 03/26/20 16:00 99.4 99.4 Intake and Output 03/26/20 07:00 Intake Total 3141.9 ml Output Total 1185 ml Balance 1956.9 ml Intake Oral 0 ml IV Total 3141.9 ml Output Urine Total 1185 ml Physical Exam Abdomen: Normal bowel sounds Heart: Other (Rate of 110) General: Other (Intubated) Lungs: Other (Decreased breath sounds) Assessment Assessment OOH, witness cardiac arrest; Rhythm upon arrival unknown, although shockable as he was defibrillated x1 with ROSC. . remains intubated/vent Mild troponin elevation; trop highest 0.3 s/p resuscitation. EKG with LBBB Covid negative. H/o Vfib OOH arrest; probable ischemic in nature, antiarrhythmics discontinued in past due to QTc prolongation of 600. EKG at [facility] with QTc 507, 528. Morning EKG. Acute respiratory failure secondary to above; s/p intubation. Followed by the pulmonary service. Weaning trials as per the pulmonary service. CAD s/p PCI/BMS to the LCx 12/11/19. Treated with ASA,Brilinta initially, which was held due to recurrent GIB requiring transfusions.Due to recent PCI/BMS, Plavix was resumed while at [facility]. ASA was discontinued. ICM; LVEF 15-20%. SSS s/p leadless PPM implantation ([employer] Micra). Device does not store history rhythm data. History of hypertension; now hypotensive. Pressor support as needed. 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 Monitoring and replacing as needed. Comment Review of Relevant I have reviewed the following items joel (where applicable) has been applied. Labs Laboratory Tests Test 03/25/20 05:00 03/25/20 07:30 03/26/20 07:00 03/26/20 07:10 White Blood Count 7.6 x10^3/uL (4.0-11.0) Red Blood Count 3.26 x10^6/uL (4.30-5.70) Hemoglobin 8.1 g/dL (13.0-17.5) Hematocrit 25.5 % (39.0-53.0) Mean Corpuscular Volume 78 fL (79-100) Mean Corpuscular Hemoglobin 25 pg (25-35) Mean Corpuscular Hemoglobin Concent 32 g/dL (31-37) Red Cell Distribution Width 17.9 % (11.5-14.5) Platelet Count 316 x10^3/uL (140-400) Neutrophils (%) (Auto) 56 % (31-73) Lymphocytes (%) (Auto) 35 % (24-48) Monocytes (%) (Auto) 6 % (0-9) Eosinophils (%) (Auto) 2 % (0-3) Basophils (%) (Auto) 1 % (0-3) Neutrophils # (Auto) 4.3 x10^3/uL (1.8-7.7) Lymphocytes # (Auto) 2.7 x10^3/uL (1.0-4.8) Monocytes # (Auto) 0.5 x10^3/uL (0.0-1.1) Eosinophils # (Auto) 0.2 x10^3/uL (0.0-0.7) Basophils # (Auto) 0.1 x10^3/uL (0.0-0.2) Sodium Level 149 mmol/L (136-145) 148 mmol/L (136-145) Potassium Level 3.0 mmol/L (3.5-5.1) 3.3 mmol/L (3.5-5.1) Chloride Level 114 mmol/L (98-107) 111 mmol/L (98-107) Carbon Dioxide Level 24 mmol/L (21-32) 25 mmol/L (21-32) Anion Gap 11 (6-14) 12 (6-14) Blood Urea Nitrogen 5 mg/dL (8-26) 7 mg/dL (8-26) Creatinine 0.9 mg/dL (0.7-1.3) 1.0 mg/dL (0.7-1.3) Estimated GFR (Cockcroft-Gault) 107.2 94.9 Glucose Level 77 mg/dL (70-99) 77 mg/dL (70-99) Calcium Level 8.0 mg/dL (8.5-10.1) 8.6 mg/dL (8.5-10.1) O2 Saturation 94 % (92-99) Arterial Blood pH 7.42 (7.35-7.45) Arterial Blood pCO2 at Patient Temp 38 mmHg (35-46) Arterial Blood pO2 at Patient Temp 71 mmHg (75-108) Arterial Blood HCO3 24 mmol/L (21-28) Arterial Blood Base Excess 0 mmol/L (-3-3) FiO2 35 Urine Collection Type Unknown Urine Color Yellow Urine Clarity Clear Urine pH 6.0 (<5.0-8.0) Urine Specific [employer] 1.025 (1.000-1.030) Urine Protein 30 mg/dL (NEG-TRACE) Urine Glucose (UA) Negative mg/dL (NEG) Urine Ketones (Stick) Trace mg/dL (NEG) Urine Blood Negative (NEG) Urine Nitrite Negative (NEG) Urine Bilirubin Negative (NEG) Urine Urobilinogen Dipstick 0.2 mg/dL (0.2 mg/dL) Urine Leukocyte Esterase Negative (NEG) Urine RBC Occ /HPF (0-2) Urine WBC 5-10 /HPF (0-4) Urine Squamous Epithelial Cells Occ /LPF Urine Bacteria 0 /HPF (0-FEW) Urine Mucus Slight /LPF BUN/Creatinine Ratio 7 (6-20) Magnesium Level 1.9 mg/dL (1.8-2.4) Total Bilirubin 0.6 mg/dL (0.2-1.0) Aspartate Amino Transf (AST/SGOT) 14 U/L (15-37) Alanine Aminotransferase (ALT/SGPT) 14 U/L (16-63) Alkaline Phosphatase 60 U/L (46-116) Total Protein 6.7 g/dL (6.4-8.2) Albumin 2.3 g/dL (3.4-5.0) Albumin/Globulin Ratio 0.5 (1.0-1.7) Test 03/26/20 08:30 O2 Saturation 97 % (92-99) Arterial Blood pH 7.36 (7.35-7.45) Arterial Blood pCO2 at Patient Temp 40 mmHg (35-46) Arterial Blood pO2 at Patient Temp 105 mmHg (75-108) Arterial Blood HCO3 23 mmol/L (21-28) Arterial Blood Base Excess -3 mmol/L (-3-3) FiO2 35% 07/25 Laboratory Tests Test 03/26/20 07:00 03/26/20 07:10 03/26/20 08:30 Urine Collection Type Unknown Urine Color Yellow Urine Clarity Clear Urine pH 6.0 (<5.0-8.0) Urine Specific [employer] 1.025 (1.000-1.030) Urine Protein 30 mg/dL (NEG-TRACE) Urine Glucose (UA) Negative mg/dL (NEG) Urine Ketones (Stick) Trace mg/dL (NEG) Urine Blood Negative (NEG) Urine Nitrite Negative (NEG) Urine Bilirubin Negative (NEG) Urine Urobilinogen Dipstick 0.2 mg/dL (0.2 mg/dL) Urine Leukocyte Esterase Negative (NEG) Urine RBC Occ /HPF (0-2) Urine WBC 5-10 /HPF (0-4) Urine Squamous Epithelial Cells Occ /LPF Urine Bacteria 0 /HPF (0-FEW) Urine Mucus Slight /LPF Sodium Level 148 mmol/L (136-145) Potassium Level 3.3 mmol/L (3.5-5.1) Chloride Level 111 mmol/L (98-107) Carbon Dioxide Level 25 mmol/L (21-32) Anion Gap 12 (6-14) Blood Urea Nitrogen 7 mg/dL (8-26) Creatinine 1.0 mg/dL (0.7-1.3) Estimated GFR (Cockcroft-Gault) 94.9 BUN/Creatinine Ratio 7 (6-20) Glucose Level 77 mg/dL (70-99) Calcium Level 8.6 mg/dL (8.5-10.1) Magnesium Level 1.9 mg/dL (1.8-2.4) Total Bilirubin 0.6 mg/dL (0.2-1.0) Aspartate Amino Transf (AST/SGOT) 14 U/L (15-37) Alanine Aminotransferase (ALT/SGPT) 14 U/L (16-63) Alkaline Phosphatase 60 U/L (46-116) Total Protein 6.7 g/dL (6.4-8.2) Albumin 2.3 g/dL (3.4-5.0) Albumin/Globulin Ratio 0.5 (1.0-1.7) O2 Saturation 97 % (92-99) Arterial Blood pH 7.36 (7.35-7.45) Arterial Blood pCO2 at Patient Temp 40 mmHg (35-46) Arterial Blood pO2 at Patient Temp 105 mmHg (75-108) Arterial Blood HCO3 23 mmol/L (21-28) Arterial Blood Base Excess -3 mmol/L (-3-3) FiO2 35% 5/ Microbiology 03/21/20 Gram Stain Evaluation - Final, Complete 03/21/20 Respiratory Culture - Final, Complete 03/20/20 Blood Culture - Final, Complete NO GROWTH AFTER 5 DAYS Medications Current Medications Norepinephrine Bitartrate 8 mg/ Dextrose 258 ml @ 18.247 mls/ hr CONT PRN IV PER PROTOCOL Last administered on 03/21/20at 09:19; Start 03/20/20 at 04:15 Dopamine HCl/ Dextrose 250 ml @ 17.681 mls/ hr CONT PRN IV SEE I/O RECORD; Start 03/20/20 at 04:30 Heparin Sodium/ Dextrose 250 ml @ 0 mls/hr CONT PRN IV PER PROTOCOL Last administered on 03/21/20at 22:15; Start 03/20/20 at 04:30; Stop 03/22/20 at 10:15; Status DC Heparin Sodium (Porcine) (Heparin Sodium) 2,400 unit PRN Q6HRS PRN IV FOR UFH LEVEL LESS THAN 0.2 Last administered on 03/21/20at 14:17; Start 03/20/20 at 04:30; Stop 03/22/20 at 10:15; Status DC Fentanyl Citrate 30 ml @ 0 mls/hr CONT PRN IV SEE PROTOCOL Last administered on 03/23/20at 06:19; Start 03/20/20 at 04:45; Stop 03/23/20 at 19:11; Status DC Lorazepam (Ativan Inj) 1 mg PRN Q1HR PRN IV SEE COMMENTS Last administered on 03/26/20at 14:30; Start 03/20/20 at 04:45; Stop 03/26/20 at 15:29; Status DC Fentanyl Citrate (Fentanyl 2ml Vial) 25 mcg PRN Q1HR PRN IV SEE COMMENTS; Start 03/20/20 at 04:45; Stop 03/26/20 at 15:29; Status DC Fentanyl Citrate (Fentanyl 2ml Vial) 50 mcg PRN Q1HR PRN IV SEE COMMENTS; Start 03/20/20 at 04:45; Stop 03/26/20 at 15:29; Status DC Chlorhexidine Gluconate (Peridex) 15 ml BID MM ; Start 03/20/20 at 09:00; Stop 03/20/20 at 07:24; Status DC Famotidine (Pepcid Vial) 20 mg BID IVP Last administered on 03/20/20at 08:07; Start 03/20/20 at 09:00; Stop 03/20/20 at 12:52; Status DC Morphine Sulfate (Morphine Sulfate) 2 mg PRN Q1HR PRN IV SEE COMMENTS.; Start 03/20/20 at 04:45; Stop 03/26/20 at 04:43; Status DC Morphine Sulfate (Morphine Sulfate) 4 mg PRN Q1HR PRN IV SEE COMMENTS.; Start 03/20/20 at 04:45; Stop 03/26/20 at 04:43; Status DC Midazolam HCl 100 ml @ 0 mls/hr CONT PRN IV SEE PROTOCOL Last administered on at 02:42; Start 03/20/20 at 04:45; Stop 03/26/20 at 15:29; Status DC Docusate Sodium (Colace Solution) 100 mg BID NG Last administered on 03/26/20at 08:35; Start 03/20/20 at 09:00; Stop 03/26/20 at 15:28; Status DC Sodium Chloride 1,000 ml @ 55 mls/hr [id number] IV Last administered on 03/25/20at 22:20; Start 03/20/20 at 06:30 Acetaminophen (Tylenol) 650 mg PRN Q6HRS PRN PEG MILD PAIN / TEMP > 100.3'F Last administered on 03/23/20at 12:16; Start 03/20/20 at 09:00 Piperacillin Sod/ Tazobactam Sod (Zosyn Per Pharmacy) 1 each PRN DAILY PRN MC SEE COMMENTS; Start 03/20/20 at 09:30 Piperacillin Sod/ Tazobactam Sod 3.375 gm/Sodium Chloride 50 ml @ 100 mls/hr Q6HRS IV Last administered on 03/26/20at 18:17; Start 03/20/20 at 10:00 Magnesium Sulfate 50 ml @ 25 mls/hr 1X ONCE IV Last administered on 03/20/20at 10:21; Start 03/20/20 at 09:45; Stop 03/20/20 at 11:44; Status DC Clopidogrel Bisulfate (Plavix) 75 mg DAILYWBKFT PO Last administered on 03/26/20 08:36; Start 03/20/20 at 12:00 Atorvastatin Calcium (Lipitor) 80 mg QHS PO Last administered on 03/25/20 22:20; Start 03/20/20 at 21:00 Ondansetron HCl (Zofran) 4 mg PRN Q6HRS PRN IVP NAUSEA/VOMITING Last administered on 03/26/20 18:17; Start 03/20/20 at 10:30 Famotidine (Pepcid Vial) 20 mg BID IVP ; Start 03/20/20 at 11:00; Stop 03/20/20 at 12:35; Status DC Info (Icu Electrolyte Protocol) 1 ea DAILY MC Last administered on 03/26/20 08:37; Start 03/21/20 at 09:00 Sodium Chloride (Normal Saline Flush) 3 ml QSHIFT PRN IV AFTER MEDS AND BLOOD DRAWS; Start 03/20/20 at 10:30 Pantoprazole Sodium (PROTONIX VIAL for IV PUSH) 40 mg DAILYAC IVP Last administered on 03/26/20 08:36; Start 03/20/20 at 12:30 Potassium Bicarbonate (Potassium Effervescent Tablet) 40 meq 1X ONCE PEG Last administered on 03/20/20at 14:47; Start 03/20/20 at 14:00; Stop 03/20/20 at 14:20; Status DC Non-Formulary Medication (ABACAVIR/ DOLUTEGRAVIR/ LAMIVUDINE (Triumeq) tablet) 1 ea DAILY PO Last administered on 03/26/20 08:37; Start 03/20/20 at 17:00 Vancomycin HCl (Vancomycin Oral Solution) 125 mg BID PO Last administered on 03/26/20 08:36; Start 03/20/20 at 21:30 Linezolid/Dextrose 300 ml @ 300 mls/hr Q12HR IV Last administered on 03/26/20 08:37; Start 03/21/20 at 09:00 Furosemide (Lasix) 40 mg DAILY IVP Last administered on 03/25/20at 17:01; Start 03/22/20 at 11:00 Potassium Chloride/Water 100 ml @ 50 mls/hr 1X ONCE IV Last administered on 03/22/20at 12:58; Start 03/22/20 at 10:30; Stop 03/22/20 at 12:29; Status DC Fentanyl Citrate 55 ml @ 0 mls/hr CONT PRN IV SEE PROTOCOL Last administered on 03/26/20at 05:07; Start 03/23/20 at 19:15 Dexmedetomidine HCl 400 mcg/ Sodium Chloride 100 ml @ 0 mls/hr CONT PRN IV PER PROTOCOL Last administered on 03/24/20at 03:33; Start 03/23/20 at 21:00; Stop 03/24/20 at 08:52; Status DC Sodium Chloride 500 ml @ 500 mls/hr 1X PRN PRN IV SEE COMMENTS; Start 03/23/20 at 21:00 Atropine Sulfate (ATROPINE 0.5mg SYRINGE) 0.5 mg PRN Q5MIN PRN IV SEE COMMENTS; Start 03/23/20 at 21:00 Haloperidol Lactate (Haldol Inj) 5 mg PRN Q6HRS PRN IVP AGITATION; Start 03/23/20 at 21:00; Stop 03/24/20 at 08:52; Status DC Propofol 100 ml @ 2.748 mls/ hr CONT PRN IV PER PROTOCOL Last administered on 03/25/20at 01:17; Start 03/24/20 at 09:00; Stop 03/26/20 at 15:31; Status DC Potassium Chloride/Water 100 ml @ 100 mls/hr Q1H IV Last administered on 03/25/20at 19:02; Start 03/25/20 at 10:00; Stop 03/25/20 at 17:59; Status DC Potassium Chloride/Water 100 ml @ 100 mls/hr Q1H IV ; Start 03/25/20 at 15:00; Stop 03/25/20 at 13:59; Status DC Potassium Bicarbonate (Potassium Effervescent Tablet) 40 meq 1X ONCE PO Last administered on 03/26/20at 08:36; Start 03/26/20 at 08:15; Stop 03/26/20 at 08:22; Status DC Active Scripts Active Furosemide 40 Mg Tablet 40 Mg PO DAILY 90 Days Tramadol Hcl 50 Mg Tablet 50 Mg PO PRN Q6HRS PRN 6 Days Metoprolol Succinate ( Xl ) (Metoprolol Succinate) 25 Mg Tab.er.24h 12.5 Mg PO DAILY 90 Days Clopidogrel (Clopidogrel Bisulfate) 75 Mg Tablet 75 Mg PO DAILYWBKFT 90 Days Lisinopril 10 Mg Tablet 1 Tab PO DAILY 90 Days Atorvastatin Calcium 80 Mg Tablet 80 Mg PO QHS 90 Days Reported Klor-Con M20 (Potassium Chloride) 20 Meq Tab.er.prt 20 Meq PO TID Pantoprazole Sodium (Pantoprazole Sodium) 40 Mg Tablet.dr 40 Mg PO BID Duoneb 0.5-3(2.5) Mg/3 Ml (Albuterol/Ipratropium) 3 Ml Ampul.neb 3 Ml NEB PRN Q6HRS PRN Acetaminophen 325 Mg Tablet 1 Tab PO PRN Q6HRS PRN 24 Days Triumeq Tablet (Abacavir/Dolutegravir/Lamivudi) 1 Each Tablet 1 Tab PO DAILY 30 Days Gabapentin (Gabapentin) 300 Mg Capsule 100 Mg PO TID Children's Aspirin (Aspirin) 81 Mg Tab.chew 1 Tab PO DAILY 30 Days Vitals/I & O Vital Sign - Last 24 Hours 03/25/20 03/25/20 03/25/20 03/25/20 19:00 19:02 20:00 20:49 Pulse 82 80 Resp 20 20 20 B/P (MAP) 92/58 (69) 107/69 (82) Pulse Ox 95 96 98 98 O2 Delivery Ventilator Ventilator Ventilator Ventilator 03/25/20 03/25/20 03/25/20 03/25/20 21:00 22:00 22:00 23:00 Temp 99.8 99.8 Pulse 78 84 96 Resp 20 20 20 B/P (MAP) 118/73 (88) 115/73 (87) 172/93 (119) Pulse Ox 96 98 97 O2 Delivery Ventilator Mechanical Ventilator Ventilator Ventilator 03/26/20 03/26/20 03/26/20 03/26/20 00:00 00:00 00:42 01:00 Temp 99.7 99.7 Pulse 82 73 Resp 20 20 B/P (MAP) 85/50 (62) 94/56 (69) Pulse Ox 95 96 96 O2 Delivery Mechanical Ventilator Ventilator Ventilator Ventilator 03/26/20 03/26/20 03/26/204/21 02:00 03:00 04:00 04:00 Temp 99.6 99.6 Pulse 76 74 79 Resp 20 20 20 B/P (MAP) 91/54 (66) 95/60 (72) 119/63 (81) Pulse Ox 95 96 96 O2 Delivery Ventilator Ventilator Mechanical Ventilator Ventilator 03/26/20 03/26/20 03/26/20 03/26/20 05:00 05:10 06:00 07:00 Temp 97.9 97.9 Pulse 82 81 69 Resp 20 20 20 B/P (MAP) 96/53 (67) 109/78 (88) 105/59 (74) Pulse Ox 95 96 97 97 O2 Delivery Ventilator Ventilator Ventilator Ventilator 03/26/20 03/26/20 03/26/20 03/26/20 07:52 08:00 08:00 08:00 Pulse 102 Resp 20 B/P (MAP) 134/79 (97) Pulse Ox 100 98 100 O2 Delivery Ventilator Ventilator Ventilator Mechanical Ventilator 03/26/20 03/26/20 03/26/20 03/26/20 09:00 10:00 11:00 11:25 Pulse 115 112 72 Resp 20 24 20 B/P (MAP) 151/90 (110) 163/86 (111) 86/49 (61) Pulse Ox 97 96 93 92 O2 Delivery Ventilator Ventilator Ventilator Ventilator 03/26/20 03/26/20 03/26/20 03/26/20 12:00 12:00 13:00 14:00 Temp 99.3 99.3 Pulse 87 118 120 Resp 26 B/P (MAP) 112/65 (81) 177/91 (119) 172/97 (122) Pulse Ox 90 93 94 O2 Delivery Mechanical Ventilator Ventilator Nasal Cannula Nasal Cannula O2 Flow Rate 5.0 5.0 03/26/20 03/26/20 03/26/20 03/26/20 15:00 16:00 16:00 17:00 Temp 99.4 99.4 Pulse 115 110 118 Resp 26 B/P (MAP) 193/87 (122) 197/91 (126) 177/98 (124) Pulse Ox 93 97 93 O2 Delivery Nasal Cannula Nasal Cannula Nasal Cannula Nasal Cannula O2 Flow Rate 5.0 5.0 5.0 5.0 03/26/20 17:55 Pulse 120 Resp 26 B/P (MAP) 165/86 (112) Pulse Ox 94 O2 Delivery Nasal Cannula O2 Flow Rate 5.0 Intake and Output 03/25/20 03/25/20 03/26/20 15:00 23:00 07:00 Intake Total 0 ml 1902 ml 1239.9 ml Output Total 130 ml 600 ml 455 ml Balance -130 ml 1302 ml 784.9 ml Justifications for Admission Other Justification CARDIAC ARREST YAMILE HDEZ MD Mar 26, 2020 18:27
[2020-03-26] MEDS ORDERED: PROPOFOL 100 ML IV ONE (19:07)
[2020-03-26] MEDS ORDERED: PROPOFOL 100 ML IV PRN (19:15)
[2020-03-26] MEDS ORDERED: fentaNYL PF VIAL 100 MCG/2 ML VIAL IV PRN ×2 (19:15)
[2020-03-26] MEDS ORDERED: MORPHINE SULFATE 2 MG/ML VIAL. IV PRN ×2 (19:15)
[2020-03-26] MEDS ORDERED: LABETALOL 20 MG/4 ML DISP.SYRIN. IVP PRN (19:15)
[2020-03-26] MEDS ORDERED: MORPHINE SULFATE 4 MG/ML VIAL. IV PRN (19:15)
[2020-03-26 19:40] LABS: BASE EXCESS ABG -4 mmol/L (-3-3); HCO3 ABG 22 mmol/L (21-28); PCO2 ABG 41 mmHg (35-46); PO2 ABG 206 mmHg (75-108); SAT O2 ABG 99 % (92-99)
[2020-03-26 19:44] LABS: FIO2 ABG 100
[2020-03-26] MEDS ORDERED: AMIODARONE 450 MG in IV DEXTROSE 5% 250 ML IV ONE (19:45)
[2020-03-26] MEDS ORDERED: AMIODARONE 150 MG in IV DEXTROSE 5% 100ML 100 ML IV ONE (19:45)
[2020-03-26] MEDS: PROPOFOL 100 ML IV PRN (19:46)
--- NOTE | 2020-03-26 19:59 | RAD ---
XR CHEST 1V Clinical History: Reason: ET and NG tube placement / Spl. Instructions: / History: Technique: AP view of the chest was obtained at 03/26/2020 7:32 PM. Comparison: 8:25 AM. Findings: The heart is mildly enlarged. The pulmonary vessels appear normal. There is increased reticular opaci ties of lungs and there is linear opacity in the right upper lung and vague patchy opacity in the jone g bases. The endotracheal tube and NG tube are again seen. Impression: 1. Intrarenal tube and NG tube well-positioned.. 2. Increasing mixed interstitial and airspace disease. Electronically signed by: Mikhail Cox III, MD (03/26/2020 7:57 PM) [facility]
[2020-03-26 20:01] LABS: BASO % 1 % (0-3); EOS # 0.1 x10^3/uL (0.0-0.7); EOS % 1 % (0-3); HEMATOCRIT 28.5 % (39.0-53.0); HEMOGLOBIN 8.9 g/dL (13.0-17.5); LYMPH # 2.9 x10^3/uL (1.0-4.8); LYMPH % 33 % (24-48); MEAN CORPUSCULAR HEMOGLOBIN 25 pg (25-35); MEAN CORPUSCULAR HGB CONC 31 g/dL (31-37); MEAN CORPUSCULAR VOLUME 79 fL (79-100); MONO # 0.4 x10^3/uL (0.0-1.1); MONO % 4 % (0-9); NEUT # 5.4 x10^3/uL (1.8-7.7); NEUT % 61 % (31-73); PLATELET COUNT 388 x10^3/uL (140-400); RED BLOOD COUNT 3.59 x10^6/uL (4.30-5.70); RED CELL DISTRIBUTION WIDTH 17.9 % (11.5-14.5); WHITE BLOOD COUNT 8.9 x10^3/uL (4.0-11.0)
[2020-03-26 20:10] LABS: CALCIUM 8.6 mg/dL (8.5-10.1); CREATININE 1.2 mg/dL (0.7-1.3); GFR 76.9; POTASSIUM 3.3 mmol/L (3.5-5.1)
[2020-03-26 20:15] LABS: ALBUMIN 2.6 g/dL (3.4-5.0); ALBUMIN/GLOBULIN RATIO 0.5 (1.0-1.7); TOTAL BILIRUBIN 0.6 mg/dL (0.2-1.0); TOTAL PROTEIN 7.4 g/dL (6.4-8.2)
--- NOTE | 2020-03-26 20:30 | NUR ---
At shift change I went into room because patient had pulled leads off, looked like afib on the monitor, and had elevated BP. I replaced the patient's leads, fixed the patient's BP cuff, and the patient stated he wanted to leave. I told him he could not leave if he was unable to walk on his own and that he had just gotten off of the ventilator earlier in the day so he would still be very weak. He was very adamant about wanting to leave and seemed frustrated. I turned around to write on the white board and heard shaking. When I turned around the patient was convulsing with eyes rolled back. Patient was v tach on the monitor. Patient did not have pulse, code blue initiated and CPR started by me. The code lasted for 3 minutes total. 1 amp bicarb, 1 epi, and 1 shock given. Patient intubated by ED physician with 7.[address] Payton also at bedside and placed some orders. Dr. Ortega notified of event. Dr. Galeas notified and orders received to start Amiodarone gtt with bolus. Patient currently sedated with Propofol, Versed, and Fentanyl--will adjust as needed. Patient's partner notified of event and current status, all questions answered. OG placed and confirmed with lady VEGA already in place. MYRON Hernandez placed IV in R EJ prior to intubation. Potassium 3.3--will replace per electrolyte protocol.
--- NOTE | 2020-03-26 20:50 | NUR ---
Critical lactic acid of 4.3 called by lab at 2044. Text page sent to Dr. Conn at 2046. Dr. Conn called back at 2051. Orders received to give 500 cc bolus and start pressors as needed for low BP.
[2020-03-26] MEDS ORDERED: SODIUM BICARB ADULT 8.4% 50 MEQ/50 ML DISP.SYRIN. ONE (21:00)
[2020-03-26] MEDS ORDERED: EPINEPHrine SYRINGE 1 MG/10 ML SYRINGE ONE (21:00)
[2020-03-26] MEDS: POTASSIUM CHLORIDE 10MEQ 100 ML IV SCH ×3 (21:04→23:18)
[2020-03-26] MEDS: CHLORHEXIDINE 0.12% 15 ML MOUTHWASH. MM SCH (21:06)
[2020-03-26] MEDS: ATORVASTATIN CALCIUM 40 MG TABLET. PO SCH (21:06)
[2020-03-26] MEDS ORDERED: IV NORMAL SALINE 500ML BAG 500 ML IV ONE (21:15)
[2020-03-26] MEDS: NOREPINEPHRINE VIAL 8 MG in IV DEXTROSE 5% 250 ML IV PRN ×2 (21:42→22:18)
[2020-03-26] MEDS: MAGNESIUM SULFATE 4GM 100 ML IV SCH (22:23)
--- NOTE | 2020-03-26 23:32 | NUR ---
While I was sitting at the desk, the alarm on the monitor went off. When I looked up patient was in sustained v tach. Upon entering the room patient was found without a pulse. Code marlen called again. 1 round of compressions, 1 epi, and 1 shock given. Patient had pulse after shock. Patient currently on Amio gtt and getting potassium and magnesium replaced. Code cart to remain in room in case of another code.
[2020-03-26] MEDS ORDERED: SUCCINYLCHOLINE 200 MG/10 ML VIAL. ONE (23:34)
[2020-03-26] MEDS ORDERED: ETOMIDATE 20 MG/10 ML VIAL. IV ONE (23:34)
[2020-03-27] VITALS (28 sets, daily range): BP systolic 65–153; BP diastolic 38–98
[2020-03-27] MEDS: POTASSIUM CHLORIDE 10MEQ 100 ML IV SCH ×5 (00:44→07:24)
--- NOTE | 2020-03-27 01:22 | NUR ---
Patient went into v tach and lost pulse. Patient shocked x1 and went back into SR. Code cart remains in room.
[2020-03-27] MEDS ORDERED: ATROPINE 0.5 MG/5 ML DISP.SYRINGE. IV PRN (01:45)
[2020-03-27] MEDS ORDERED: IV NORMAL SALINE 500ML BAG 500 ML IV PRN (01:45)
--- NOTE | 2020-03-27 01:45 | NUR ---
Dr. Galeas paged about patient going in and out of V tach. While talking with Dr. Galeas, patient went into V tach another time, shocked x1 and went into SR. Orders received to give another 40 of Potassium, give 80 of Lidocaine IVP, and make sure patient is fully sedated (may add Precedex).
[2020-03-27] MEDS: MIDAZOLAM 100mg/100ml NS BAG 100 ML IV PRN ×3 (01:51→16:26)
[2020-03-27] MEDS ORDERED: LIDOCAINE 2% 100 MG/5 ML SYRINGE. IV ONE (02:00)
[2020-03-27] MEDS: AMIODARONE 450 MG in IV DEXTROSE 5% 250 ML IV PRN ×2 (04:45→18:15)
[2020-03-27] MEDS: PIPERACILLIN/TAZOBACTAM 3.375 GM in IV NORMAL SALINE 50ML 50 ML IV SCH ×4 (05:59→23:58)
--- NOTE | 2020-03-27 07:39 | PDOC ---
[employer] PROGRESS NOTE Date of Service DOS: DATE: 03/27/20 TIME: 07:36 Chief Complaint Chief Complaint VTE Prophylaxis Ordered VTE Prophylaxis Devices: Yes VTE Pharmacological Prophylaxi: Yes Assessment/Plan Assessment/Plan ASSESSMENT 1. out of hospital arrest , witness cardiac arrest; Defibrillation // AMI ruled out. 2. H/o Vfib probable ischemic in nature, antiarrhythmics discontinued in past due to QTc prolongation of 600. 3. Acute hypoxic respiratory failure requiring vent support 4. CAD s/p PCI/BMS to the LCx 12/11/19. Treated with ASA,Brilinta initially, which was held due to recurrent GIB requiring transfusions.Due to recent PCI/BMS, Plavix was resumed while at [facility]. ASA was d/c'd 5. Chronic systolic CHF 6. ischemic cardiomyopathy LVEF 20-25%. 7. SSS s/p leadless PPM 8. Hypertension; // requiring pressor support 9. Hypokalemia, hypomagnesemia 10. H/o DAIJA requiringHD; renal function improvedand HD catheter removed 11. 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 HIV 13. Substance abuse; UDS + cocaine , ALCOHOL, TOBACCO 14. Leukocytosis, fevers. ? sepsis Covid negative. 15. H/o Vfib OOH arrest; probable ischemic in nature, antiarrhythmics discontinued in past due to QTc prolongation of 600. EKG at [facility] with QTc 507, 528. 16. Human immunodeficiency virus, CD4 was 403 on 01/16 viral load less than 20 on 01/23on [facility]. 17. History of ventricular tachycardia, Coronary artery disease, status post PCI. 18. Status post pacemaker for bradycardia 12/27 at [place]. 19. hypernatremia, volume excess plan icu bed cardiology consult pulm consult Device interrogation Replace Mg, lytes Secondary prevention measures as able Resume Plavix. No ASA due to recent GIB Monitor LFTs Pressor support; wean as able Hold lisinopril, Toprol with hypotension Echo vent management GI CONSULT COVID 19 SCREEN vent support assist-control mode 50% and PEEP of 5 On heparin drip per cardiology hiv screen Echo to assess LV systolic function if COVID PCR negative Tube feeding on hold per GI, concern for ileus follow other GI recommendations vent support assist-control mode 40% and a PEEP of 5 Continue Zosyn,Zyvox Continue p.o. vancomycin for prophylaxis with history of recurrent C. difficile Continue Triumeq Follow up labs and cultures. 35% and a PEEP of 5 dec ns rate prognosis very guarded 39 MIN CC TIME History of Present Illness History of Present Illness Identification/Chief Complaint Chief Complaint admitted to icu , out of hospial arrest CAD s/p PCI/stent, cardiomyopathy, and prior cardiac arrest, presented secondary to cardiac arrest at home. Was at home with partner, Stevenson, watching television. Patient suddenly started breathing more deeply and began gasping for air. Eyes were wide and glassy. Was unresponsive. Partner was unable to feel pulse so he put him on the floor, called EMS and began chest compressions. Partner reports him drinking 3 malt beverages that evening while watching TV. No known sick contacts. EMS arrived within minutes. ROSC returned following one defibrillation. Although partner declined drug use, Narcan was administered en route due to pinpoint pupi ls. Limited effect from the Narcan. UDS was + for cocaine. IS COVID 19 PUI hx cardiac arrest on December 19, 2019. Patient was apparently found arrest in his car EMS noted in v-fib. ROSC was achieved following 1 defibrillation and 1 round of epi.//activated as STEMI with LBBB. Emergent cath notable for blockage of left circumflex. //PCI/BMS to the Left circumflex. went into Vfib in medical lab director and was initiated on Amiodarone therapy. LVEF noted at 20-25%. Developed DAIJA due to cardiogenic shock. had multiple episodes of bradycardia/significant pauses mostly related to suctioning. then leadlessPPM placement.Treated for Klebsiella PNA as well. course further complicated by GIB requiring tranfusion. 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 Breathing on mechanical ventilator, FiO2 60%, PEEP 5. Patient failed extubation yesterday. Continue Zosyn, Zyvox, p.o. vancomycin. 03/26 Patient seen and evaluated in ICU. On vent FiO2 35%, PEEP 5. Afebrile. Continue Zosyn, Zyvox, and p.o. vancomycin. Chart and labs reviewed, discussed with RN. Vitals/I&O Vitals/I&O: Vital Signs Date Time Temp Pulse Resp B/P (MAP) Pulse Ox O2 Delivery O2 Flow Rate FiO2 03/27/20 06:00 65 20 118/80 (93) 100 Ventilator 03/27/20 04:00 98.7 98.7 03/26/20 19:00 15.0 I & O 03/26/20 03/26/20 03/27/20 15:00 23:00 07:00 Intake Total 120 ml 1911 ml 2127 ml Output Total 250 ml 1475 ml 1525 ml Balance -130 ml 436 ml 602 ml Physical Exam Physical Exam: GENERAL: Intubated, sedated. HEENT: Conjunctival suffusion. Pupils equal, reactive. ETT OGT present. NECK: Supple. LUNGS: Clear anteriorly. HEART: S1, S2, tachycardia. ABDOMEN: Obese, mildly distended. Bowel sounds present. EXTREMITIES: No edema or cyanosis. DERMATOLOGIC: Warm and dry. No generalized rash. NEUROLOGIC: Unable to assess. General: Other (Intubated) Heart: Other (Rate of 110) Lungs: Clear Abdomen: Normal bowel sounds Extremities: No cyanosis, No edema, Normal pulses Skin: No significant lesion Labs Labs: Laboratory Tests Test 03/26/20 08:30 03/26/20 19:04 03/26/20 19:38 03/26/20 19:46 O2 Saturation 97 % (92-99) 99 % (92-99) Arterial Blood pH 7.36 (7.35-7.45) 7.34 (7.35-7.45) Arterial Blood pCO2 at Patient Temp 40 mmHg (35-46) 41 mmHg (35-46) Arterial Blood pO2 at Patient Temp 105 mmHg (75-108) 206 mmHg (75-108) Arterial Blood HCO3 23 mmol/L (21-28) 22 mmol/L (21-28) Arterial Blood Base Excess -3 mmol/L (-3-3) -4 mmol/L (-3-3) FiO2 35% / 100 Glucose (Fingerstick) 88 mg/dL (70-99) White Blood Count 8.9 x10^3/uL (4.0-11.0) Red Blood Count 3.59 x10^6/uL (4.30-5.70) Hemoglobin 8.9 g/dL (13.0-17.5) Hematocrit 28.5 % (39.0-53.0) Mean Corpuscular Volume 79 fL (79-100) Mean Corpuscular Hemoglobin 25 pg (25-35) Mean Corpuscular Hemoglobin Concent 31 g/dL (31-37) Red Cell Distribution Width 17.9 % (11.5-14.5) Platelet Count 388 x10^3/uL (140-400) Neutrophils (%) (Auto) 61 % (31-73) Lymphocytes (%) (Auto) 33 % (24-48) Monocytes (%) (Auto) 4 % (0-9) Eosinophils (%) (Auto) 1 % (0-3) Basophils (%) (Auto) 1 % (0-3) Neutrophils # (Auto) 5.4 x10^3/uL (1.8-7.7) Lymphocytes # (Auto) 2.9 x10^3/uL (1.0-4.8) Monocytes # (Auto) 0.4 x10^3/uL (0.0-1.1) Eosinophils # (Auto) 0.1 x10^3/uL (0.0-0.7) Basophils # (Auto) 0.0 x10^3/uL (0.0-0.2) Sodium Level 148 mmol/L (136-145) Potassium Level 3.3 mmol/L (3.5-5.1) Chloride Level 109 mmol/L (98-107) Carbon Dioxide Level 23 mmol/L (21-32) Anion Gap 16 (6-14) Blood Urea Nitrogen 6 mg/dL (8-26) Creatinine 1.2 mg/dL (0.7-1.3) Estimated GFR (Cockcroft-Gault) 76.9 BUN/Creatinine Ratio 5 (6-20) Glucose Level 130 mg/dL (70-99) Lactic Acid Level 4.3 mmol/L (0.4-2.0) Calcium Level 8.6 mg/dL (8.5-10.1) Magnesium Level 1.7 mg/dL (1.8-2.4) Total Bilirubin 0.6 mg/dL (0.2-1.0) Aspartate Amino Transf (AST/SGOT) 23 U/L (15-37) Alanine Aminotransferase (ALT/SGPT) 12 U/L (16-63) Alkaline Phosphatase 69 U/L (46-116) Troponin I Quantitative 0.032 ng/mL (0.000-0.055) Total Protein 7.4 g/dL (6.4-8.2) Albumin 2.6 g/dL (3.4-5.0) Albumin/Globulin Ratio 0.5 (1.0-1.7) Test 03/26/20 23:50 Lactic Acid Level 3.7 mmol/L (0.4-2.0) Comment Review of Relevant I have reviewed the following items joel (where applicable) has been applied. Medications: Current Medications Medications (Trade) Dose Ordered Sig/Guy Route PRN Reason Start Time Stop Time Status Last Admin Dose Admin Potassium Bicarbonate (Potassium Effervescent Tablet) 40 meq 1X ONCE PO 03/26/20 08:15 03/26/20 08:22 DC 03/26/20 08:36 Chlorhexidine Gluconate (Peridex) 15 ml BID MM 03/26/20 21:00 03/26/20 21:06 Propofol 100 ml @ 0 mls/hr CONT PRN IV PER PROTOCOL 03/26/20 19:15 03/26/20 19:46 Midazolam HCl 100 ml @ 0 mls/hr CONT PRN IV SEE PROTOCOL 03/26/20 19:15 03/27/20 01:51 Amiodarone HCl 150 mg/Dextrose 103 ml @ 618 mls/hr 1X ONCE IV 03/26/20 19:45 03/26/20 19:54 DC 03/26/20 19:44 Amiodarone HCl 450 mg/Dextrose 259 ml @ 0 mls/hr 1X ONCE IV 03/26/20 19:45 03/26/20 19:46 DC 03/26/20 19:45 Potassium Chloride/Water 100 ml @ 100 mls/hr Q1H IV 03/26/20 21:00 03/27/20 00:59 DC 03/27/20 00:44 Sodium Chloride 500 ml @ 500 mls/hr 1X ONCE IV 03/26/20 21:15 03/26/20 22:14 DC 03/26/20 21:09 Magnesium Sulfate 100 ml @ 50 mls/hr DAILY IV 03/26/20 22:00 03/30/20 21:59 03/26/20 22:23 Lidocaine HCl (Lidocaine HCl 2% Abboject) 80 mg 1X ONCE IV 03/27/20 02:00 03/27/20 02:01 DC 03/27/20 01:50 Potassium Chloride/Water 100 ml @ 100 mls/hr Q1H IV 03/27/20 02:00 03/27/20 05:59 DC 03/27/20 07:24 Amiodarone HCl 450 mg/Dextrose 259 ml @ 16.7 mls/hr CONT PRN IV SEE I/O RECORD 03/27/20 03:00 03/27/20 04:45 Justifications for Admission Other Justification CARDIAC ARREST ROCIO MOHAN MD Mar 27, 2020 07:39
[2020-03-27] MEDS: fentaNYL HIGH DOSE PCA 55 ML IV PRN ×2 (07:49→20:53)
[2020-03-27] MEDS: PANTOPRAZOLE IV PUSH 40 MG VIAL. IVP SCH (08:00)
[2020-03-27] MEDS: VANCOMYCIN 125 MG/2.5 ML ORAL SOLUTION. PO SCH ×2 (08:00→20:51)
[2020-03-27] MEDS: FUROSEMIDE 40 MG/4 ML VIAL. IVP SCH (08:00)
[2020-03-27] MEDS: LAMIVUDINE PO SCH (08:01)
[2020-03-27] MEDS: ABACAVIR PO SCH (08:01)
[2020-03-27] MEDS: CLOPIDOGREL BISULFATE 75 MG TABLET PO SCH (08:01)
[2020-03-27] MEDS: DOLUTEGRAVIR PO SCH (08:01)
--- NOTE | 2020-03-27 08:04 | PDOC ---
Infectious Disease Note Subjective Subjective Patient intubated/sedated No fevers last 24 hours No acute issues per discussion with RN Vital Sign Vital Signs Vital Signs Date Time Temp Pulse Resp B/P (MAP) Pulse Ox O2 Delivery O2 Flow Rate FiO2 03/27/20 06:00 65 20 118/80 (93) 100 Ventilator 03/27/20 04:00 98.7 98.7 03/26/20 19:00 15.0 Physical Exam PHYSICAL EXAM GENERAL: Intubated, sedated. HEENT: Conjunctival suffusion. Pupils equal, reactive. ETT OGT present. NECK: Supple. LUNGS: Clear anteriorly. HEART: S1, S2, tachycardia. ABDOMEN: Obese, mildly distended. Bowel sounds present. EXTREMITIES: No edema or cyanosis. DERMATOLOGIC: Warm and dry. No generalized rash. NEUROLOGIC: Unable to assess. Labs Lab Laboratory Tests Test 03/26/20 08:30 03/26/20 19:04 03/26/20 19:38 03/26/20 19:46 O2 Saturation 97 % (92-99) 99 % (92-99) Arterial Blood pH 7.36 (7.35-7.45) 7.34 (7.35-7.45) Arterial Blood pCO2 at Patient Temp 40 mmHg (35-46) 41 mmHg (35-46) Arterial Blood pO2 at Patient Temp 105 mmHg (75-108) 206 mmHg (75-108) Arterial Blood HCO3 23 mmol/L (21-28) 22 mmol/L (21-28) Arterial Blood Base Excess -3 mmol/L (-3-3) -4 mmol/L (-3-3) FiO2 35% / 100 Glucose (Fingerstick) 88 mg/dL (70-99) White Blood Count 8.9 x10^3/uL (4.0-11.0) Red Blood Count 3.59 x10^6/uL (4.30-5.70) Hemoglobin 8.9 g/dL (13.0-17.5) Hematocrit 28.5 % (39.0-53.0) Mean Corpuscular Volume 79 fL (79-100) Mean Corpuscular Hemoglobin 25 pg (25-35) Mean Corpuscular Hemoglobin Concent 31 g/dL (31-37) Red Cell Distribution Width 17.9 % (11.5-14.5) Platelet Count 388 x10^3/uL (140-400) Neutrophils (%) (Auto) 61 % (31-73) Lymphocytes (%) (Auto) 33 % (24-48) Monocytes (%) (Auto) 4 % (0-9) Eosinophils (%) (Auto) 1 % (0-3) Basophils (%) (Auto) 1 % (0-3) Neutrophils # (Auto) 5.4 x10^3/uL (1.8-7.7) Lymphocytes # (Auto) 2.9 x10^3/uL (1.0-4.8) Monocytes # (Auto) 0.4 x10^3/uL (0.0-1.1) Eosinophils # (Auto) 0.1 x10^3/uL (0.0-0.7) Basophils # (Auto) 0.0 x10^3/uL (0.0-0.2) Sodium Level 148 mmol/L (136-145) Potassium Level 3.3 mmol/L (3.5-5.1) Chloride Level 109 mmol/L (98-107) Carbon Dioxide Level 23 mmol/L (21-32) Anion Gap 16 (6-14) Blood Urea Nitrogen 6 mg/dL (8-26) Creatinine 1.2 mg/dL (0.7-1.3) Estimated GFR (Cockcroft-Gault) 76.9 BUN/Creatinine Ratio 5 (6-20) Glucose Level 130 mg/dL (70-99) Lactic Acid Level 4.3 mmol/L (0.4-2.0) Calcium Level 8.6 mg/dL (8.5-10.1) Magnesium Level 1.7 mg/dL (1.8-2.4) Total Bilirubin 0.6 mg/dL (0.2-1.0) Aspartate Amino Transf (AST/SGOT) 23 U/L (15-37) Alanine Aminotransferase (ALT/SGPT) 12 U/L (16-63) Alkaline Phosphatase 69 U/L (46-116) Troponin I Quantitative 0.032 ng/mL (0.000-0.055) Total Protein 7.4 g/dL (6.4-8.2) Albumin 2.6 g/dL (3.4-5.0) Albumin/Globulin Ratio 0.5 (1.0-1.7) Test 1/4/21 23:50 Lactic Acid Level 3.7 mmol/L (0.4-2.0) Micro Microbiology 03/21/20 Gram Stain Evaluation - Final, Complete 03/21/20 Respiratory Culture - Final, Complete 03/20/20 Blood Culture - Final, Complete NO GROWTH AFTER 5 DAYS Objective Assessment 1. Fever, likely aspiration. UA negative 2. Witnessed cardiac arrest, status post defibrillation. 3. Leukocytosis and lactic acidosis. 4. Human immunodeficiency virus, CD4 was 403 on 01/16 viral load less than 20 on 01/23on [facility]ume[facility]. 5. Acute hypoxic respiratory failure 6. History of ventricular tachycardia, Coronary artery disease, status post PCI. 7. Status post pacemaker for bradycardia 12/27 at [place]. 8. History of acute kidney injury, on hemodialysis in the past. 9. 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 10. Substance dependence. UDS positive for cocaine at outside hospital. 11. Hypertension/hyperlipidemia 12. Hypokalemia/hypomagnesemia. 13. H/O Chronic systolic congestive heart failure. 14. History of rectal abscess. 15. History of Necrotizing Pneumonia with Klebsiella at [facility] November 2019 Plan Plan of Care Continue Zosyn,Zyvox Continue p.o. vancomycin for prophylaxis with history of recurrent C. difficile Continue Triumeq Follow up labs and cultures. Continue supportive care Discussed with nursing. MARLA NICOLE MD Mar 27, 2020 08:04
[2020-03-27 08:19] LABS: BASO # 0.1 x10^3/uL (0.0-0.2); BASO % 1 % (0-3); EOS # 0.2 x10^3/uL (0.0-0.7); EOS % 2 % (0-3); HEMATOCRIT 26.4 % (39.0-53.0); HEMOGLOBIN 8.3 g/dL (13.0-17.5); LYMPH % 37 % (24-48); MEAN CORPUSCULAR HEMOGLOBIN 25 pg (25-35); MEAN CORPUSCULAR HGB CONC 32 g/dL (31-37); MEAN CORPUSCULAR VOLUME 78 fL (79-100); MONO # 0.7 x10^3/uL (0.0-1.1); MONO % 9 % (0-9); NEUT # 4.2 x10^3/uL (1.8-7.7); NEUT % 52 % (31-73); PLATELET COUNT 378 x10^3/uL (140-400); RED BLOOD COUNT 3.38 x10^6/uL (4.30-5.70); RED CELL DISTRIBUTION WIDTH 17.6 % (11.5-14.5); WHITE BLOOD COUNT 8.2 x10^3/uL (4.0-11.0)
[2020-03-27 08:26] LABS: BASE EXCESS ABG 1 mmol/L (-3-3); HCO3 ABG 24 mmol/L (21-28); PCO2 ABG 35 mmHg (35-46); PO2 ABG 175 mmHg (75-108); SAT O2 ABG 99 % (92-99)
[2020-03-27 08:54] LABS: CALCIUM 8.4 mg/dL (8.5-10.1); CREATININE 0.8 mg/dL (0.7-1.3); GFR 122.8; POTASSIUM 3.7 mmol/L (3.5-5.1)
[2020-03-27] MEDS: ELECTROLYTE (ICU) PROTOCOL. MC SCH (09:00)
[2020-03-27] MEDS: CHLORHEXIDINE 0.12% 15 ML MOUTHWASH. MM SCH ×2 (09:00→20:51)
[2020-03-27] MEDS ORDERED: IODIXANOL 320 MG/ML 100 ML VIAL. ONE (09:23)
[2020-03-27] MEDS ORDERED: LIDOCAINE 1% Multi-Dose 20 ML VIAL. ONE (09:23)
[2020-03-27] MEDS: DEXMEDETOMIDINE 400 MCG in IV NORMAL SALINE 100ML 96 ML IV PRN ×2 (09:24→21:17)
--- NOTE | 2020-03-27 09:26 | PDOC ---
PULMONARY PROGRESS NOTES DATE: 03/27/20 TIME: 09:22 Subjective Pt. is on Fi02 35% AC mode extubated 03/26, re-intubated for V-Tac Arrest Vitals Vital Signs Date Time Temp Pulse Resp B/P (MAP) Pulse Ox O2 Delivery O2 Flow Rate FiO2 03/27/20 08:14 100 Ventilator 03/27/20 08:00 97.9 73 20 120/84 (96) 97.9 03/26/20 19:00 15.0 Comments Intubated/sedated Lungs: Clear Cardiovascular: S1 Abdomen: Soft Extremities: No Edema Skin: Warm Labs Laboratory Tests Test 03/26/20 07:00 03/26/20 07:10 03/26/20 08:30 03/26/20 19:04 Urine Collection Type Unknown Urine Color Yellow Urine Clarity Clear Urine pH 6.0 (<5.0-8.0) Urine Specific [place] 1.025 (1.000-1.030) Urine Protein 30 mg/dL (NEG-TRACE) Urine Glucose (UA) Negative mg/dL (NEG) Urine Ketones (Stick) Trace mg/dL (NEG) Urine Blood Negative (NEG) Urine Nitrite Negative (NEG) Urine Bilirubin Negative (NEG) Urine Urobilinogen Dipstick 0.2 mg/dL (0.2 mg/dL) Urine Leukocyte Esterase Negative (NEG) Urine RBC Occ /HPF (0-2) Urine WBC 5-10 /HPF (0-4) Urine Squamous Epithelial Cells Occ /LPF Urine Bacteria 0 /HPF (0-FEW) Urine Mucus Slight /LPF Sodium Level 148 mmol/L (136-145) Potassium Level 3.3 mmol/L (3.5-5.1) Chloride Level 111 mmol/L (98-107) Carbon Dioxide Level 25 mmol/L (21-32) Anion Gap 12 (6-14) Blood Urea Nitrogen 7 mg/dL (8-26) Creatinine 1.0 mg/dL (0.7-1.3) Estimated GFR (Cockcroft-Gault) 94.9 BUN/Creatinine Ratio 7 (6-20) Glucose Level 77 mg/dL (70-99) Calcium Level 8.6 mg/dL (8.5-10.1) Magnesium Level 1.9 mg/dL (1.8-2.4) Total Bilirubin 0.6 mg/dL (0.2-1.0) Aspartate Amino Transf (AST/SGOT) 14 U/L (15-37) Alanine Aminotransferase (ALT/SGPT) 14 U/L (16-63) Alkaline Phosphatase 60 U/L (46-116) Total Protein 6.7 g/dL (6.4-8.2) Albumin 2.3 g/dL (3.4-5.0) Albumin/Globulin Ratio 0.5 (1.0-1.7) O2 Saturation 97 % (92-99) Arterial Blood pH 7.36 (7.35-7.45) Arterial Blood pCO2 at Patient Temp 40 mmHg (35-46) Arterial Blood pO2 at Patient Temp 105 mmHg (75-108) Arterial Blood HCO3 23 mmol/L (21-28) Arterial Blood Base Excess -3 mmol/L (-3-3) FiO2 35% 5/ Glucose (Fingerstick) 88 mg/dL (70-99) Test 03/26/20 19:38 03/26/20 19:46 03/26/20 23:50 03/27/20 07:45 O2 Saturation 99 % (92-99) Arterial Blood pH 7.34 (7.35-7.45) Arterial Blood pCO2 at Patient Temp 41 mmHg (35-46) Arterial Blood pO2 at Patient Temp 206 mmHg (75-108) Arterial Blood HCO3 22 mmol/L (21-28) Arterial Blood Base Excess -4 mmol/L (-3-3) FiO2 100 White Blood Count 8.9 x10^3/uL (4.0-11.0) 8.2 x10^3/uL (4.0-11.0) Red Blood Count 3.59 x10^6/uL (4.30-5.70) 3.38 x10^6/uL (4.30-5.70) Hemoglobin 8.9 g/dL (13.0-17.5) 8.3 g/dL (13.0-17.5) Hematocrit 28.5 % (39.0-53.0) 26.4 % (39.0-53.0) Mean Corpuscular Volume 79 fL (79-100) 78 fL (79-100) Mean Corpuscular Hemoglobin 25 pg (25-35) 25 pg (25-35) Mean Corpuscular Hemoglobin Concent 31 g/dL (31-37) 32 g/dL (31-37) Red Cell Distribution Width 17.9 % (11.5-14.5) 17.6 % (11.5-14.5) Platelet Count 388 x10^3/uL (140-400) 378 x10^3/uL (140-400) Neutrophils (%) (Auto) 61 % (31-73) 52 % (31-73) Lymphocytes (%) (Auto) 33 % (24-48) 37 % (24-48) Monocytes (%) (Auto) 4 % (0-9) 9 % (0-9) Eosinophils (%) (Auto) 1 % (0-3) 2 % (0-3) Basophils (%) (Auto) 1 % (0-3) 1 % (0-3) Neutrophils # (Auto) 5.4 x10^3/uL (1.8-7.7) 4.2 x10^3/uL (1.8-7.7) Lymphocytes # (Auto) 2.9 x10^3/uL (1.0-4.8) 3.0 x10^3/uL (1.0-4.8) Monocytes # (Auto) 0.4 x10^3/uL (0.0-1.1) 0.7 x10^3/uL (0.0-1.1) Eosinophils # (Auto) 0.1 x10^3/uL (0.0-0.7) 0.2 x10^3/uL (0.0-0.7) Basophils # (Auto) 0.0 x10^3/uL (0.0-0.2) 0.1 x10^3/uL (0.0-0.2) Sodium Level 148 mmol/L (136-145) 144 mmol/L (136-145) Potassium Level 3.3 mmol/L (3.5-5.1) 3.7 mmol/L (3.5-5.1) Chloride Level 109 mmol/L (98-107) 108 mmol/L (98-107) Carbon Dioxide Level 23 mmol/L (21-32) 24 mmol/L (21-32) Anion Gap 16 (6-14) 12 (6-14) Blood Urea Nitrogen 6 mg/dL (8-26) 5 mg/dL (8-26) Creatinine 1.2 mg/dL (0.7-1.3) 0.8 mg/dL (0.7-1.3) Estimated GFR (Cockcroft-Gault) 76.9 122.8 BUN/Creatinine Ratio 5 (6-20) Glucose Level 130 mg/dL (70-99) 110 mg/dL (70-99) Lactic Acid Level 4.3 mmol/L (0.4-2.0) 3.7 mmol/L (0.4-2.0) Calcium Level 8.6 mg/dL (8.5-10.1) 8.4 mg/dL (8.5-10.1) Magnesium Level 1.7 mg/dL (1.8-2.4) 2.5 mg/dL (1.8-2.4) Total Bilirubin 0.6 mg/dL (0.2-1.0) Aspartate Amino Transf (AST/SGOT) 23 U/L (15-37) Alanine Aminotransferase (ALT/SGPT) 12 U/L (16-63) Alkaline Phosphatase 69 U/L (46-116) Troponin I Quantitative 0.032 ng/mL (0.000-0.055) Total Protein 7.4 g/dL (6.4-8.2) Albumin 2.6 g/dL (3.4-5.0) Albumin/Globulin Ratio 0.5 (1.0-1.7) Test 03/27/20 08:00 O2 Saturation 99 % (92-99) Arterial Blood pH 7.46 (7.35-7.45) Arterial Blood pCO2 at Patient Temp 35 mmHg (35-46) Arterial Blood pO2 at Patient Temp 175 mmHg (75-108) Arterial Blood HCO3 24 mmol/L (21-28) Arterial Blood Base Excess 1 mmol/L (-3-3) FiO2 60/vent Laboratory Tests Test 03/26/20 19:04 03/26/20 19:38 03/26/20 19:46 03/26/20 23:50 Glucose (Fingerstick) 88 mg/dL (70-99) O2 Saturation 99 % (92-99) Arterial Blood pH 7.34 (7.35-7.45) Arterial Blood pCO2 at Patient Temp 41 mmHg (35-46) Arterial Blood pO2 at Patient Temp 206 mmHg (75-108) Arterial Blood HCO3 22 mmol/L (21-28) Arterial Blood Base Excess -4 mmol/L (-3-3) FiO2 100 White Blood Count 8.9 x10^3/uL (4.0-11.0) Red Blood Count 3.59 x10^6/uL (4.30-5.70) Hemoglobin 8.9 g/dL (13.0-17.5) Hematocrit 28.5 % (39.0-53.0) Mean Corpuscular Volume 79 fL (79-100) Mean Corpuscular Hemoglobin 25 pg (25-35) Mean Corpuscular Hemoglobin Concent 31 g/dL (31-37) Red Cell Distribution Width 17.9 % (11.5-14.5) Platelet Count 388 x10^3/uL (140-400) Neutrophils (%) (Auto) 61 % (31-73) Lymphocytes (%) (Auto) 33 % (24-48) Monocytes (%) (Auto) 4 % (0-9) Eosinophils (%) (Auto) 1 % (0-3) Basophils (%) (Auto) 1 % (0-3) Neutrophils # (Auto) 5.4 x10^3/uL (1.8-7.7) Lymphocytes # (Auto) 2.9 x10^3/uL (1.0-4.8) Monocytes # (Auto) 0.4 x10^3/uL (0.0-1.1) Eosinophils # (Auto) 0.1 x10^3/uL (0.0-0.7) Basophils # (Auto) 0.0 x10^3/uL (0.0-0.2) Sodium Level 148 mmol/L (136-145) Potassium Level 3.3 mmol/L (3.5-5.1) Chloride Level 109 mmol/L (98-107) Carbon Dioxide Level 23 mmol/L (21-32) Anion Gap 16 (6-14) Blood Urea Nitrogen 6 mg/dL (8-26) Creatinine 1.2 mg/dL (0.7-1.3) Estimated GFR (Cockcroft-Gault) 76.9 BUN/Creatinine Ratio 5 (6-20) Glucose Level 130 mg/dL (70-99) Lactic Acid Level 4.3 mmol/L (0.4-2.0) 3.7 mmol/L (0.4-2.0) Calcium Level 8.6 mg/dL (8.5-10.1) Magnesium Level 1.7 mg/dL (1.8-2.4) Total Bilirubin 0.6 mg/dL (0.2-1.0) Aspartate Amino Transf (AST/SGOT) 23 U/L (15-37) Alanine Aminotransferase (ALT/SGPT) 12 U/L (16-63) Alkaline Phosphatase 69 U/L (46-116) Troponin I Quantitative 0.032 ng/mL (0.000-0.055) Total Protein 7.4 g/dL (6.4-8.2) Albumin 2.6 g/dL (3.4-5.0) Albumin/Globulin Ratio 0.5 (1.0-1.7) Test 03/27/20 07:45 03/27/20 08:00 White Blood Count 8.2 x10^3/uL (4.0-11.0) Red Blood Count 3.38 x10^6/uL (4.30-5.70) Hemoglobin 8.3 g/dL (13.0-17.5) Hematocrit 26.4 % (39.0-53.0) Mean Corpuscular Volume 78 fL (79-100) Mean Corpuscular Hemoglobin 25 pg (25-35) Mean Corpuscular Hemoglobin Concent 32 g/dL (31-37) Red Cell Distribution Width 17.6 % (11.5-14.5) Platelet Count 378 x10^3/uL (140-400) Neutrophils (%) (Auto) 52 % (31-73) Lymphocytes (%) (Auto) 37 % (24-48) Monocytes (%) (Auto) 9 % (0-9) Eosinophils (%) (Auto) 2 % (0-3) Basophils (%) (Auto) 1 % (0-3) Neutrophils # (Auto) 4.2 x10^3/uL (1.8-7.7) Lymphocytes # (Auto) 3.0 x10^3/uL (1.0-4.8) Monocytes # (Auto) 0.7 x10^3/uL (0.0-1.1) Eosinophils # (Auto) 0.2 x10^3/uL (0.0-0.7) Basophils # (Auto) 0.1 x10^3/uL (0.0-0.2) Sodium Level 144 mmol/L (136-145) Potassium Level 3.7 mmol/L (3.5-5.1) Chloride Level 108 mmol/L (98-107) Carbon Dioxide Level 24 mmol/L (21-32) Anion Gap 12 (6-14) Blood Urea Nitrogen 5 mg/dL (8-26) Creatinine 0.8 mg/dL (0.7-1.3) Estimated GFR (Cockcroft-Gault) 122.8 Glucose Level 110 mg/dL (70-99) Calcium Level 8.4 mg/dL (8.5-10.1) Magnesium Level 2.5 mg/dL (1.8-2.4) O2 Saturation 99 % (92-99) Arterial Blood pH 7.46 (7.35-7.45) Arterial Blood pCO2 at Patient Temp 35 mmHg (35-46) Arterial Blood pO2 at Patient Temp 175 mmHg (75-108) Arterial Blood HCO3 24 mmol/L (21-28) Arterial Blood Base Excess 1 mmol/L (-3-3) FiO2 60/vent Medications Active Scripts Medications Dose Route/Sig Max Daily Dose Days Date Category Furosemide 40 Mg Tablet 40 Mg PO DAILY 02/02/20 Rx Tramadol Hcl 50 Mg Tablet 50 Mg PO PRN Q6HRS PRN 6 02/02/20 Rx Metoprolol Succinate ( Xl ) (Metoprolol Succinate) 25 Mg Tab.er.24h 12.5 Mg PO DAILY 02/02/20 Rx Clopidogrel (Clopidogrel Bisulfate) 75 Mg Tablet 75 Mg PO DAILYWBKFT 02/02/20 Rx Lisinopril 10 Mg Tablet 1 Tab PO DAILY 02/02/20 Rx Atorvastatin Calcium 80 Mg Tablet 80 Mg PO QHS 02/02/20 Rx Klor-Con M20 (Potassium Chloride) 20 Meq Tab.er.prt 20 Meq PO TID 01/31/20 Reported Pantoprazole Sodium (Pantoprazole Sodium) 40 Mg Tablet.dr 40 Mg PO BID 01/31/20 Reported Duoneb 0.5-3(2.5) Mg/3 Ml (Albuterol/Ipratropium) 3 Ml Ampul.neb 3 Ml NEB PRN Q6HRS PRN 01/31/20 Reported Acetaminophen 325 Mg Tablet 1 Tab PO PRN Q6HRS PRN 24 01/31/20 Reported Triumeq Tablet (Abacavir/Dolutegravir/Lamivudi) 1 Each Tablet 1 Tab PO DAILY 30 01/31/20 Reported Gabapentin (Gabapentin) 300 Mg Capsule 100 Mg PO TID 01/31/20 Reported Children's Aspirin (Aspirin) 81 Mg Tab.chew 1 Tab PO DAILY 30 01/31/20 Reported Comments CXR 03/26/20 IMPRESSION: Decrease in diffuse interstitial infiltrate. Impression . IMPRESSION: 1. Acute hypoxemic respiratory failure secondary to [id number] cardiopulmonary arrest. extubated 03/26, re-intubated for V-Tac Arrest 2. History of ventricular fibrillation with previous [id number] cardiac arrest. 3. History of coronary artery disease, status post percutaneous coronary intervention to the circumflex. 4. History of gastrointestinal bleed. 5. Chronic systolic heart failure. 6. Ischemic cardiomyopathy, ejection fraction 15%. 7. Status post pacemaker implantation. 8. Hypertension. 9. Hypokalemia. 10. Previous kidney injury requiring hemodialysis. 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 12. Human immunodeficiency virus. 13. Polysubstance use. Plan . 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
[2020-03-27] MEDS ORDERED: IODIXANOL 320 MG/ML 100 ML VIAL. IART ONE (10:00)
[2020-03-27] MEDS ORDERED: CONTRAST GIVEN. MC PRN (10:00)
--- NOTE | 2020-03-27 10:05 | NUR ---
Patient to cath lab technologist
[2020-03-27] MEDS: IV NORMAL SALINE 1000ML BAG 1,000 ML IV SCH (10:21)
--- NOTE | 2020-03-27 10:39 | PDOC ---
Date of Service: DATE: 03/27/20 TIME: 10:35 Objective: Objective: D/w nurse - re-intubated yesterday, coded (more than once) overnight - greenish emesis prior to re-intubation. Vital Signs: Vital Signs Date Time Temp Pulse Resp B/P (MAP) Pulse Ox O2 Delivery O2 Flow Rate FiO2 03/27/20 10:00 76 20 65/42 (50) 100 Ventilator 03/27/20 08:00 97.9 97.9 03/26/20 19:00 15.0 Labs: Laboratory Tests Test 03/26/20 19:04 03/26/20 19:38 03/26/20 19:46 03/26/20 23:50 Glucose (Fingerstick) 88 mg/dL O2 Saturation 99 % Arterial Blood pH 7.34 Arterial Blood pCO2 at Patient Temp 41 mmHg Arterial Blood pO2 at Patient Temp 206 mmHg Arterial Blood HCO3 22 mmol/L Arterial Blood Base Excess -4 mmol/L FiO2 100 White Blood Count 8.9 x10^3/uL Red Blood Count 3.59 x10^6/uL Hemoglobin 8.9 g/dL Hematocrit 28.5 % Mean Corpuscular Volume 79 fL Mean Corpuscular Hemoglobin 25 pg Mean Corpuscular Hemoglobin Concent 31 g/dL Red Cell Distribution Width 17.9 % Platelet Count 388 x10^3/uL Neutrophils (%) (Auto) 61 % Lymphocytes (%) (Auto) 33 % Monocytes (%) (Auto) 4 % Eosinophils (%) (Auto) 1 % Basophils (%) (Auto) 1 % Neutrophils # (Auto) 5.4 x10^3/uL Lymphocytes # (Auto) 2.9 x10^3/uL Monocytes # (Auto) 0.4 x10^3/uL Eosinophils # (Auto) 0.1 x10^3/uL Basophils # (Auto) 0.0 x10^3/uL Sodium Level 148 mmol/L Potassium Level 3.3 mmol/L Chloride Level 109 mmol/L Carbon Dioxide Level 23 mmol/L Anion Gap 16 Blood Urea Nitrogen 6 mg/dL Creatinine 1.2 mg/dL Estimated GFR (Cockcroft-Gault) 76.9 BUN/Creatinine Ratio 5 Glucose Level 130 mg/dL Lactic Acid Level 4.3 mmol/L 3.7 mmol/L Calcium Level 8.6 mg/dL Magnesium Level 1.7 mg/dL Total Bilirubin 0.6 mg/dL Aspartate Amino Transf (AST/SGOT) 23 U/L Alanine Aminotransferase (ALT/SGPT) 12 U/L Alkaline Phosphatase 69 U/L Troponin I Quantitative 0.032 ng/mL Total Protein 7.4 g/dL Albumin 2.6 g/dL Albumin/Globulin Ratio 0.5 Test 03/27/20 07:45 03/27/20 08:00 White Blood Count 8.2 x10^3/uL Red Blood Count 3.38 x10^6/uL Hemoglobin 8.3 g/dL Hematocrit 26.4 % Mean Corpuscular Volume 78 fL Mean Corpuscular Hemoglobin 25 pg Mean Corpuscular Hemoglobin Concent 32 g/dL Red Cell Distribution Width 17.6 % Platelet Count 378 x10^3/uL Neutrophils (%) (Auto) 52 % Lymphocytes (%) (Auto) 37 % Monocytes (%) (Auto) 9 % Eosinophils (%) (Auto) 2 % Basophils (%) (Auto) 1 % Neutrophils # (Auto) 4.2 x10^3/uL Lymphocytes # (Auto) 3.0 x10^3/uL Monocytes # (Auto) 0.7 x10^3/uL Eosinophils # (Auto) 0.2 x10^3/uL Basophils # (Auto) 0.1 x10^3/uL Sodium Level 144 mmol/L Potassium Level 3.7 mmol/L Chloride Level 108 mmol/L Carbon Dioxide Level 24 mmol/L Anion Gap 12 Blood Urea Nitrogen 5 mg/dL Creatinine 0.8 mg/dL Estimated GFR (Cockcroft-Gault) 122.8 Glucose Level 110 mg/dL Calcium Level 8.4 mg/dL Magnesium Level 2.5 mg/dL Troponin I Quantitative 0.064 ng/mL O2 Saturation 99 % Arterial Blood pH 7.46 Arterial Blood pCO2 at Patient Temp 35 mmHg Arterial Blood pO2 at Patient Temp 175 mmHg Arterial Blood HCO3 24 mmol/L Arterial Blood Base Excess 1 mmol/L FiO2 60/vent URINE CULTURE Final Final No Growth on 03/27/20 at 0847 Imaging: CXR 03/26 Impression: 1. Intrarenal tube and NG tube well-positioned.. 2. Increasing mixed interstitial and airspace disease. PE: GEN: intubated LUNGS: diminished HEART: RR ABD: quiet, soft, non-distended, OG output dark brown NEURO/PSYCH: sedated A/P: S/p arrests, h/o CAD Anemia (stable), h/o GI bleeding Vomiting prior to re-intubation COVID negative -- To [facility] today. Still no reports of bleeding. Continue PPI, consider abd x-ray. Justicifation of Admission Dx: Justifications for Admission: Justification of Admission Dx: Yes YNES CLEARY Mar 27, 2020 10:39
[2020-03-27] MEDS: LIDOCAINE 1% Multi-Dose 20 ML VIAL. INJ ONE (10:41)
--- NOTE | 2020-03-27 11:30 | PDOC4 ---
BRIEF OPERATIVE NOTE Pre-Op Diagnosis VT Post-Op Diagnosis VT Procedure Performed LHC, Coronary angiography, L IJ central line placement for IV access Surgeon Adal Pearson EBL 30 mL Anesthesiologist None Anesthesia Type: General Specimens Obtained None Findings One vessel CAD with patent LCx stent. Elevated LVEDP, 25 mm Hg Severe LV dysfunction. Successful LIJ 7 Fr triple lumen placed via ultrasound guided access Complications No acute complications SHYAM AJ MD Mar 27, 2020 11:30
[2020-03-27] MEDS: MILRINONE 20MG/100ML PREMIX 100 ML IV PRN ×2 (11:31→19:14)
--- NOTE | 2020-03-27 12:01 | NUR ---
back from clinical lab technologist
--- NOTE | 2020-03-27 12:38 | NUR ---
Dr. Galeas notified of sbp 70's. Orders received to decrease milrinone from current dose of 0.5 mcg to 0.375. Informed this nurse that during cardiac cath the arterial pressure was approx 20 higher than cuff pressure therefore no additional orders at this time. Await Dr. Mills to round on patient today.
--- NOTE | 2020-03-27 12:41 | CARD ---
MR#: [id number] Date of Study: 03/27/2020 Ordering Physician: SHYAM AJ, Referring Physician: SHYAM AJ, Tech: Analilia Pearson APPROVED REPORT Technologist: Analilia Pearson Nurse: Lamar Huang RN Procedure(s) performed: Heart Failure Class 4 fl time: 4.3 mins dose: 68 gycm2 contrast: 107 ml LHC, Coronary angiography, Left ventriculogram, LIJ ultrasound guided central line placement HISTORY : The patient is a 54 year-old male with a history of . INDICATION The indication(s) include : arrhythmia, VT arrest. . [facility] Clinical Frailty Scale [facility] Clinical Frailty Scale: Severely Frail Heart Failure Heart Failure: Yes If Yes, Newly Diagnosed: No If Yes, HF Type: Systolic PROCEDURE NARRATIVE Clinical information: 54-year-old male with a history of mixed ischemic and nonischemic cardiomyopathy who had several bout s of ventricular tachycardia and cardiac arrest. He was taken to the cardiac catheterization [facility] to rule out occult ischemia. Procedure details: Informed consent was obtained for the patient's next of kin as he was intubated and sedated. The rig ht groin was prepped and draped in usual sterile fashion and the left neck was also prepped in usual sterile fashion. Under 1% lidocaine local anesthesia a 6 [place]er sheath was placed in the right commo n femoral artery and via ultrasound guidance a 7 [place] triple-lumen catheter was inserted in the lef t internal jugular vein. Diagnostic angiography was performed with a 6 [place] JL4, JR4 and pigtail catheters. Left ventriculo gram was obtained and a pullback was performed. At case completion the right groin sheath was remove d and hemostasis was achieved with an Angio-Seal device. The left internal jugular vein triple-lumen line was in appropriate position at the SVC/RA junction a nd all 3 lm were flushing appropriately. Findings: LVEDP 21 mmHg No LV to aortic gradient on pullback Aorta: 90/60 Coronary angiography Left main: Large caliber vessel with mild luminal irregularities LAD is a large-caliber vessel with mild luminal irregularities D1 is a moderate caliber vessel with mild luminal irregularities Left circumflex is a large caliber vessel with a patent proximal stent with 30% ISR OM1 is a small to moderate caliber vessel with mild luminal irregularities LPL1 is a moderate caliber vessel with mild luminal irregularities. RCA is a moderate caliber dominant vessel with mild luminal irregularities Conclusion 1. Acute on chronic systolic and diastolic heart failure, LVEDP 21 mmHg 2. One-vessel coronary artery disease with a patent left circumflex stent 3. Successful placement of a left internal jugular vein triple-lumen central venous catheter via ult rasound guidance Recommendations 1. Continue aggressive medical therapy for heart failure. 2. Discussion to be held with the patient's family regarding goals of care as the patient prior to h is cardiac arrest wanted to sign out AMA. He would be a candidate for ICD placement given his ventri cular tachycardia. Nonetheless, given his wishes yesterday to sign out AMA as well as prior history of drug abuse we will discuss with family their goals for future care. Signed by : Shyam Aj, Electronically Approved : 03/27/2020 12:40:59
--- NOTE | 2020-03-27 15:24 | EKG ---
[facility] [address] [place] [address] Test Date: 2020-03-27 Test Time: 15:20:54 Pat Name: DENIA RODRIGUES Department: Room: 109 1 Gender: M Drawer In Stitch Bonding Machine: MONISHA : [id number] Requested By: GREGORY REYNA Order Number: [id number] Reading MD: Measurements Intervals Barre Rate: 88 P: 90 CT: 142 QRS: 47 QRSD: 156 T: 114 QT: 428 QTc: 522 Interpretive Statements SINUS RHYTHM VENTRICULAR PREMATURE COMPLEX(ES) LEFT ATRIAL ABNORMALITY LEFT BUNDLE BRANCH BLOCK ABNORMAL ECG RI6.02 Compared to ECG 03/26/2020 15:16:44 Sinus tachycardia no longer present Ventricular escape complex(es) no longer present
--- NOTE | 2020-03-27 16:26 | NUR ---
SS following up with discharge planning. SS reviewed pt chart and discussed with pt RN. Pt reintubated last night and is currently on the vent at 60%. COVID19 negative. HIV positive. Pt on IV Zosyn and IV Zyvox. Not stable. SS will continue to follow for discharge planning.
[2020-03-27] MEDS: ATORVASTATIN CALCIUM 40 MG TABLET. PO SCH (20:51)
[2020-03-27] MEDS: ACETAMINOPHEN 650 MG/20.3 ML SOLUTION. PEG PRN (20:51)
[2020-03-28] VITALS (35 sets, daily range): BP systolic 60–206; BP diastolic 40–107
[2020-03-28] MEDS: IV NORMAL SALINE 1000ML BAG 1,000 ML IV SCH ×2 (04:13→22:53)
[2020-03-28] MEDS: MIDAZOLAM 100mg/100ml NS BAG 100 ML IV PRN ×2 (04:13→15:16)
[2020-03-28] MEDS: MILRINONE 20MG/100ML PREMIX 100 ML IV PRN ×2 (05:12→15:24)
[2020-03-28] MEDS: DEXMEDETOMIDINE 400 MCG in IV NORMAL SALINE 100ML 96 ML IV PRN ×2 (05:13→16:19)
[2020-03-28 05:31] LABS: BASO # 0.1 x10^3/uL (0.0-0.2); BASO % 1 % (0-3); EOS # 0.2 x10^3/uL (0.0-0.7); EOS % 3 % (0-3); HEMATOCRIT 23.1 % (39.0-53.0); HEMOGLOBIN 7.5 g/dL (13.0-17.5); LYMPH # 2.1 x10^3/uL (1.0-4.8); LYMPH % 29 % (24-48); MEAN CORPUSCULAR HEMOGLOBIN 25 pg (25-35); MEAN CORPUSCULAR HGB CONC 32 g/dL (31-37); MEAN CORPUSCULAR VOLUME 78 fL (79-100); MONO # 0.5 x10^3/uL (0.0-1.1); MONO % 7 % (0-9); NEUT # 4.2 x10^3/uL (1.8-7.7); NEUT % 60 % (31-73); PLATELET COUNT 327 x10^3/uL (140-400); RED BLOOD COUNT 2.98 x10^6/uL (4.30-5.70)
[2020-03-28 05:39] LABS: CALCIUM 8.3 mg/dL (8.5-10.1); GFR 94.9; POTASSIUM 3.1 mmol/L (3.5-5.1)
[2020-03-28] MEDS: PIPERACILLIN/TAZOBACTAM 3.375 GM in IV NORMAL SALINE 50ML 50 ML IV SCH ×4 (05:43→23:38)
[2020-03-28] MEDS: POTASSIUM CHLORIDE 20MEQ 100 ML IV SCH ×2 (06:07→08:18)
[2020-03-28 07:40] LABS: BASE EXCESS ABG 1 mmol/L (-3-3); HCO3 ABG 25 mmol/L (21-28); PCO2 ABG 36 mmHg (35-46); PO2 ABG 72 mmHg (75-108); SAT O2 ABG 94 % (92-99)
[2020-03-28 07:42] LABS: FIO2 ABG 40
--- NOTE | 2020-03-28 07:56 | PDOC ---
[facility] PROGRESS NOTE Date of Service DOS: DATE: 03/28/20 TIME: 07:54 Chief Complaint Chief Complaint VTE Prophylaxis Ordered VTE Prophylaxis Devices: Yes VTE Pharmacological Prophylaxi: Yes Assessment/Plan Assessment/Plan ASSESSMENT 1. out of hospital arrest , witness cardiac arrest; Defibrillation // AMI ruled out. 2. H/o Vfib probable ischemic in nature, antiarrhythmics discontinued in past due to QTc prolongation of 600. 3. Acute hypoxic respiratory failure requiring vent support 4. CAD s/p PCI/BMS to the LCx 12/11/19. Treated with ASA,Brilinta initially, which was held due to recurrent GIB requiring transfusions.Due to recent PCI/BMS, Plavix was resumed while at [facility]. ASA was d/c'd 5. Chronic systolic CHF 6. ischemic cardiomyopathy LVEF 20-25%. 7. SSS s/p leadless PPM 8. Hypertension; // requiring pressor support 9. Hypokalemia, hypomagnesemia 10. H/o DAIJA requiringHD; renal function improvedand HD catheter removed 11. 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 HIV 13. Substance abuse; UDS + cocaine , ALCOHOL, TOBACCO 14. Leukocytosis, fevers. ? sepsis Covid negative. 15. H/o Vfib OOH arrest; probable ischemic in nature, antiarrhythmics discontinued in past due to QTc prolongation of 600. EKG at [facility] with QTc 507, 528. 16. Human immunodeficiency virus, CD4 was 403 on 01/16 viral load less than 20 on 01/23on [facility]. 17. History of ventricular tachycardia, Coronary artery disease, status post PCI. 18. Status post pacemaker for bradycardia 12/27 at [place]. 19. hypernatremia, volume excess plan icu bed cardiology consult pulm consult Device interrogation Replace Mg, lytes Secondary prevention measures as able Resume Plavix. No ASA due to recent GIB Monitor LFTs Pressor support; wean as able Hold lisinopril, Toprol with hypotension Echo vent management GI CONSULT COVID 19 SCREEN vent support assist-control mode 50% and PEEP of 5 On heparin drip per cardiology hiv screen Echo to assess LV systolic function if COVID PCR negative Tube feeding on hold per GI, concern for ileus follow other GI recommendations vent support assist-control mode 40% and a PEEP of 5 Continue Zosyn,Zyvox Continue p.o. vancomycin for prophylaxis with history of recurrent C. difficile Continue Triumeq Follow up labs and cultures. 35% and a PEEP of 5 dec ns rate prognosis very guarded 39 MIN CC TIME History of Present Illness History of Present Illness Identification/Chief Complaint Chief Complaint admitted to icu , out of hospial arrest CAD s/p PCI/stent, cardiomyopathy, and prior cardiac arrest, presented secondary to cardiac arrest at home. Was at home with partner, Stevenson, watching television. Patient suddenly started breathing more deeply and began gasping for air. Eyes were wide and glassy. Was unresponsive. Partner was unable to feel pulse so he put him on the floor, called EMS and began chest compressions. Partner reports him drinking 3 malt beverages that evening while watching TV. No known sick contacts. EMS arrived within minutes. ROSC returned following one defibrillation. Although partner declined drug use, Narcan was administered en route due to pinpoint pupi ls. Limited effect from the Narcan. UDS was + for cocaine. IS COVID 19 PUI hx cardiac arrest on December 19, 2019. Patient was apparently found arrest in his car EMS noted in v-fib. ROSC was achieved following 1 defibrillation and 1 round of epi.//activated as STEMI with LBBB. Emergent cath notable for blockage of left circumflex. //PCI/BMS to the Left circumflex. 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 LVEF noted at 20-25%. Developed DAIJA due to cardiogenic shock. had multiple episodes of bradycardia/significant pauses mostly related to suctioning. then leadlessPPM placement.Treated for Klebsiella PNA as well. course further complicated by GIB requiring tranfusion. 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 No acute events overnight. On vent, FiO2 40%, PEEP 5. Potassium low today, will replace. Continue supportive care and antibiotics. Discussed with RN 03/27 Patient seen in ICU. Breathing on mechanical ventilator, FiO2 60%, PEEP 5. Patient failed extubation yesterday. Continue Zosyn, Zyvox, p.o. vancomycin. 03/26 Patient seen and evaluated in ICU. On vent FiO2 35%, PEEP 5. Afebrile. Continue Zosyn, Zyvox, and p.o. vancomycin. Chart and labs reviewed, discussed with RN. Vitals/I&O Vitals/I&O: Vital Signs Date Time Temp Pulse Resp B/P (MAP) Pulse Ox O2 Delivery O2 Flow Rate FiO2 03/28/20 07:23 97 Ventilator 03/28/20 06:00 61 20 97/53 (68) 03/28/20 04:00 97.9 97.9 I & O 03/27/20 03/27/20 03/28/20 15:00 23:00 07:00 Intake Total 150 ml 1723.55 ml 1246 ml Output Total 3050 ml 245 ml 950 ml Balance -2900 ml 1478.55 ml 296 ml Physical Exam Physical Exam: GENERAL: Intubated, sedated. HEENT: Conjunctival suffusion. Pupils equal, reactive. ETT OGT present. NECK: Supple. LUNGS: Clear anteriorly. HEART: S1, S2, tachycardia. ABDOMEN: Obese, mildly distended. Bowel sounds present. EXTREMITIES: No edema or cyanosis. DERMATOLOGIC: Warm and dry. No generalized rash. NEUROLOGIC: Unable to assess. General: Other (Intubated) Heart: Other (Rate of 110) Lungs: Clear Abdomen: Normal bowel sounds Extremities: No cyanosis, No edema, Normal pulses Skin: No significant lesion Labs Labs: Laboratory Tests Test 03/27/20 08:00 03/28/20 05:15 03/28/20 07:25 O2 Saturation 99 % (92-99) 94 % (92-99) Arterial Blood pH 7.46 (7.35-7.45) 7.45 (7.35-7.45) Arterial Blood pCO2 at Patient Temp 35 mmHg (35-46) 36 mmHg (35-46) Arterial Blood pO2 at Patient Temp 175 mmHg (75-108) 72 mmHg (75-108) Arterial Blood HCO3 24 mmol/L (21-28) 25 mmol/L (21-28) Arterial Blood Base Excess 1 mmol/L (-3-3) 1 mmol/L (-3-3) FiO2 60/vent 40 White Blood Count 7.0 x10^3/uL (4.0-11.0) Red Blood Count 2.98 x10^6/uL (4.30-5.70) Hemoglobin 7.5 g/dL (13.0-17.5) Hematocrit 23.1 % (39.0-53.0) Mean Corpuscular Volume 78 fL (79-100) Mean Corpuscular Hemoglobin 25 pg (25-35) Mean Corpuscular Hemoglobin Concent 32 g/dL (31-37) Red Cell Distribution Width 18.0 % (11.5-14.5) Platelet Count 327 x10^3/uL (140-400) Neutrophils (%) (Auto) 60 % (31-73) Lymphocytes (%) (Auto) 29 % (24-48) Monocytes (%) (Auto) 7 % (0-9) Eosinophils (%) (Auto) 3 % (0-3) Basophils (%) (Auto) 1 % (0-3) Neutrophils # (Auto) 4.2 x10^3/uL (1.8-7.7) Lymphocytes # (Auto) 2.1 x10^3/uL (1.0-4.8) Monocytes # (Auto) 0.5 x10^3/uL (0.0-1.1) Eosinophils # (Auto) 0.2 x10^3/uL (0.0-0.7) Basophils # (Auto) 0.1 x10^3/uL (0.0-0.2) Sodium Level 143 mmol/L (136-145) Potassium Level 3.1 mmol/L (3.5-5.1) Chloride Level 110 mmol/L (98-107) Carbon Dioxide Level 26 mmol/L (21-32) Anion Gap 7 (6-14) Blood Urea Nitrogen 6 mg/dL (8-26) Creatinine 1.0 mg/dL (0.7-1.3) Estimated GFR (Cockcroft-Gault) 94.9 Glucose Level 117 mg/dL (70-99) Calcium Level 8.3 mg/dL (8.5-10.1) Magnesium Level 2.0 mg/dL (1.8-2.4) Comment Review of Relevant I have reviewed the following items joel (where applicable) has been applied. Medications: Current Medications Medications (Trade) Dose Ordered Sig/Guy Route PRN Reason Start Time Stop Time Status Last Admin Dose Admin Heparin Sodium/ Sodium Chloride (HEPARIN for ARTERIAL LINE FLUSH) 1,000 unit 1X ONCE IART 03/27/20 10:00 03/27/20 10:01 DC 03/27/20 10:00 Heparin Sodium/ Sodium Chloride (HEPARIN for ARTERIAL LINE FLUSH) 1,000 unit 1X ONCE IART 03/27/20 10:00 03/27/20 10:01 DC 03/27/20 10:00 Iodixanol (Visipaque 320) 100 ml 1X ONCE IART 03/27/20 10:00 03/27/20 10:01 DC 03/27/20 11:05 Lidocaine HCl (Lidocaine 1% 20ml Vial) 20 ml 1X ONCE INJ 03/27/20 10:00 03/27/20 10:01 DC 03/27/20 10:41 Milrinone Lactate/ Dextrose 100 ml @ 10.103 mls/ hr CONT PRN IV SEE I/O RECORD 03/27/20 11:30 03/28/20 05:12 Potassium Chloride/Water 100 ml @ 100 mls/hr Q1H IV 03/28/20 06:00 03/28/20 07:59 03/28/20 06:07 Justifications for Admission Other Justification CARDIAC ARREST ROCIO MOHAN MD Mar 28, 2020 07:56
--- NOTE | 2020-03-28 08:15 | PDOC ---
Infectious Disease Note Subjective Subjective Patient intubated/sedated No acute issues per discussion with MYRON DRISCOLL no n/v/d/ Vital Sign Vital Signs Vital Signs Date Time Temp Pulse Resp B/P (MAP) Pulse Ox O2 Delivery O2 Flow Rate FiO2 03/28/20 07:23 97 Ventilator 03/28/20 06:00 61 20 97/53 (68) 03/28/20 04:00 97.9 97.9 Physical Exam PHYSICAL EXAM GENERAL: Intubated, sedated. HEENT: Conjunctival suffusion. Pupils equal, reactive. ETT OGT present. NECK: Supple. LUNGS: Clear anteriorly. HEART: S1, S2, tachycardia. ABDOMEN: Obese, mildly distended. Bowel sounds present. EXTREMITIES: No edema or cyanosis. DERMATOLOGIC: Warm and dry. No generalized rash. NEUROLOGIC: Unable to assess. Labs Lab Laboratory Tests Test 03/28/20 05:15 03/28/20 07:25 White Blood Count 7.0 x10^3/uL (4.0-11.0) Red Blood Count 2.98 x10^6/uL (4.30-5.70) Hemoglobin 7.5 g/dL (13.0-17.5) Hematocrit 23.1 % (39.0-53.0) Mean Corpuscular Volume 78 fL (79-100) Mean Corpuscular Hemoglobin 25 pg (25-35) Mean Corpuscular Hemoglobin Concent 32 g/dL (31-37) Red Cell Distribution Width 18.0 % (11.5-14.5) Platelet Count 327 x10^3/uL (140-400) Neutrophils (%) (Auto) 60 % (31-73) Lymphocytes (%) (Auto) 29 % (24-48) Monocytes (%) (Auto) 7 % (0-9) Eosinophils (%) (Auto) 3 % (0-3) Basophils (%) (Auto) 1 % (0-3) Neutrophils # (Auto) 4.2 x10^3/uL (1.8-7.7) Lymphocytes # (Auto) 2.1 x10^3/uL (1.0-4.8) Monocytes # (Auto) 0.5 x10^3/uL (0.0-1.1) Eosinophils # (Auto) 0.2 x10^3/uL (0.0-0.7) Basophils # (Auto) 0.1 x10^3/uL (0.0-0.2) Sodium Level 143 mmol/L (136-145) Potassium Level 3.1 mmol/L (3.5-5.1) Chloride Level 110 mmol/L (98-107) Carbon Dioxide Level 26 mmol/L (21-32) Anion Gap 7 (6-14) Blood Urea Nitrogen 6 mg/dL (8-26) Creatinine 1.0 mg/dL (0.7-1.3) Estimated GFR (Cockcroft-Gault) 94.9 Glucose Level 117 mg/dL (70-99) Calcium Level 8.3 mg/dL (8.5-10.1) Magnesium Level 2.0 mg/dL (1.8-2.4) O2 Saturation 94 % (92-99) Arterial Blood pH 7.45 (7.35-7.45) Arterial Blood pCO2 at Patient Temp 36 mmHg (35-46) Arterial Blood pO2 at Patient Temp 72 mmHg (75-108) Arterial Blood HCO3 25 mmol/L (21-28) Arterial Blood Base Excess 1 mmol/L (-3-3) FiO2 40 Micro Microbiology 03/21/20 Gram Stain Evaluation - Final, Complete 03/21/20 Respiratory Culture - Final, Complete 03/20/20 Blood Culture - Final, Complete NO GROWTH AFTER 5 DAYS Objective Assessment 1. Fever, likely aspiration. UA negative 2. Witnessed cardiac arrest, status post defibrillation. 3. Leukocytosis and lactic acidosis. 4. Human immunodeficiency virus, CD4 was 403 on 01/16 viral load less than 20 on 01/23on [facility]. 5. Acute hypoxic respiratory failure 6. History of ventricular tachycardia, Coronary artery disease, status post PCI. 7. Status post pacemaker for bradycardia 12/27 at [place]. 8. History of acute kidney injury, on hemodialysis in the past. 9. 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 10. Substance dependence. UDS positive for cocaine at outside hospital. 11. Hypertension/hyperlipidemia 12. Hypokalemia/hypomagnesemia. 13. H/O Chronic systolic congestive heart failure. 14. History of rectal abscess. 15. History of Necrotizing Pneumonia with Klebsiella at [facility] November 2019 Plan Plan of Care Continue penelope Montague Zyvox Continue p.o. vancomycin for prophylaxis with history of recurrent C. difficile Continue Triumeq Follow up labs and cultures. Continue supportive care Discussed with nursing. MARLA NICOLE MD Mar 28, 2020 08:15
[2020-03-28] MEDS: PANTOPRAZOLE IV PUSH 40 MG VIAL. IVP SCH (08:18)
[2020-03-28] MEDS: FUROSEMIDE 40 MG/4 ML VIAL. IVP SCH (08:18)
[2020-03-28] MEDS: DOLUTEGRAVIR PO SCH (08:19)
[2020-03-28] MEDS: LAMIVUDINE PO SCH (08:19)
[2020-03-28] MEDS: ABACAVIR PO SCH (08:19)
[2020-03-28] MEDS: CLOPIDOGREL BISULFATE 75 MG TABLET PO SCH (08:19)
[2020-03-28] MEDS: VANCOMYCIN 125 MG/2.5 ML ORAL SOLUTION. PO SCH ×2 (08:20→20:32)
[2020-03-28] MEDS: fentaNYL HIGH DOSE PCA 55 ML IV PRN ×2 (08:26→21:37)
[2020-03-28] MEDS: ELECTROLYTE (ICU) PROTOCOL. MC SCH (09:00)
[2020-03-28] MEDS: MAGNESIUM SULFATE 4GM 100 ML IV SCH (09:00)
--- NOTE | 2020-03-28 09:19 | PDOC ---
Date of Service: DATE: 03/28/20 TIME: 09:16 Objective: Objective: D/w nurse - ~700cc from OG overnight, poultry raiser reported small stool - no mention of blood. Vital Signs: Vital Signs Date Time Temp Pulse Resp B/P (MAP) Pulse Ox O2 Delivery O2 Flow Rate FiO2 03/28/20 08:00 Mechanical Ventilator 03/28/20 07:59 61 20 117/72 (87) 96 03/28/20 07:00 98.3 98.3 Labs: Laboratory Tests Test 03/28/20 05:15 03/28/20 07:25 White Blood Count 7.0 x10^3/uL Red Blood Count 2.98 x10^6/uL Hemoglobin 7.5 g/dL Hematocrit 23.1 % Mean Corpuscular Volume 78 fL Mean Corpuscular Hemoglobin 25 pg Mean Corpuscular Hemoglobin Concent 32 g/dL Red Cell Distribution Width 18.0 % Platelet Count 327 x10^3/uL Neutrophils (%) (Auto) 60 % Lymphocytes (%) (Auto) 29 % Monocytes (%) (Auto) 7 % Eosinophils (%) (Auto) 3 % Basophils (%) (Auto) 1 % Neutrophils # (Auto) 4.2 x10^3/uL Lymphocytes # (Auto) 2.1 x10^3/uL Monocytes # (Auto) 0.5 x10^3/uL Eosinophils # (Auto) 0.2 x10^3/uL Basophils # (Auto) 0.1 x10^3/uL Sodium Level 143 mmol/L Potassium Level 3.1 mmol/L Chloride Level 110 mmol/L Carbon Dioxide Level 26 mmol/L Anion Gap 7 Blood Urea Nitrogen 6 mg/dL Creatinine 1.0 mg/dL Estimated GFR (Cockcroft-Gault) 94.9 Glucose Level 117 mg/dL Calcium Level 8.3 mg/dL Magnesium Level 2.0 mg/dL O2 Saturation 94 % Arterial Blood pH 7.45 Arterial Blood pCO2 at Patient Temp 36 mmHg Arterial Blood pO2 at Patient Temp 72 mmHg Arterial Blood HCO3 25 mmol/L Arterial Blood Base Excess 1 mmol/L FiO2 40 Imaging: Vascular US 03/27 pending Cardiac Cath 03/27 Conclusion 1. Acute on chronic systolic and diastolic heart failure, LVEDP 21 mmHg 2. One-vessel coronary artery disease with a patent left circumflex stent 3. Successful placement of a left internal jugular vein triple-lumen central venous catheter via ultrasound guidance Recommendations 1. Continue aggressive medical therapy for heart failure. 2. Discussion to be held with the patient's family regarding goals of care as the patient prior to his cardiac arrest wanted to sign out AMA. He would be a candidate for ICD placement given his ventricular tachycardia. Nonetheless, given his wishes yesterday to sign out AMA as well as prior history of drug abuse we will discuss with family their goals for future care. PE: GEN: intuabted LUNGS: vent HEART: RR ABD: maybe some distention, soft, ~800 in OG canister - dark brown NEURO/PSYCH: sedated A/P: S/p arrests, CAD on Plavix, CHF Anemia (some drift in Hgb), h/o GI bleeding (none observed here) COVID negative -- Continue PPI, will check KUB. Justicifation of Admission Dx: Justifications for Admission: Justification of Admission Dx: Yes YNES CLEARY Mar 28, 2020 09:19
--- NOTE | 2020-03-28 10:06 | RAD ---
KUB without comparison for vomiting. FINDINGS: An enteric tube is present within the stomach. There is a nonobstructive nonspecific bowel gas pattern, with air and stool to the level the rectum. No significant osseous abnormalities. Small ovoid ossification the right lower quadrant is nonspecific but could reflect an appendicolith. Impression: 1. Nonobstructive nonspecific bowel gas pattern. 2. Calcification in the right lower quadrant which is nonspecific but could reflect a small appendico lith. If there is clinical concern for appendicitis, consider further evaluation with CT of the abdom en and pelvis. Electronically signed by: Konstantin Vanessa MD (03/28/2020 10:03 AM) [id number]
--- NOTE | 2020-03-28 10:25 | NUR ---
SS following up with discharge planning. SS reviewed pt chart and discussed with pt RN. Pt is currently on the vent at 60%. COVID19 negative. HIV positive. Pt on IV Zosyn. Not stable. Pt needing AICD placement. Pt's family discussing with one another prior to given consent. SS will continue to follow for discharge planning.
--- NOTE | 2020-03-28 10:48 | EKG ---
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
--- NOTE | 2020-03-28 11:31 | PDOC ---
PULMONARY PROGRESS NOTES DATE: 03/28/20 TIME: 11:27 Subjective Pt. is on Fi02 40% AC mode extubated 03/26, re-intubated for 03/26--V-Tac Arrest now on primacor and amio gtt S/P cardiac cath 03/27/20-- clean Vitals Vital Signs Date Time Temp Pulse Resp B/P (MAP) Pulse Ox O2 Delivery O2 Flow Rate FiO2 03/28/20 09:00 62 20 76/43 (54) 99 Ventilator 03/28/20 07:00 98.3 98.3 Comments Intubated/sedated Lungs: Clear Cardiovascular: S1 Abdomen: Soft Extremities: No Edema Skin: Warm Labs Laboratory Tests Test 03/26/20 19:04 03/26/20 19:38 03/26/20 19:46 03/26/20 23:50 Glucose (Fingerstick) 88 mg/dL (70-99) O2 Saturation 99 % (92-99) Arterial Blood pH 7.34 (7.35-7.45) Arterial Blood pCO2 at Patient Temp 41 mmHg (35-46) Arterial Blood pO2 at Patient Temp 206 mmHg (75-108) Arterial Blood HCO3 22 mmol/L (21-28) Arterial Blood Base Excess -4 mmol/L (-3-3) FiO2 100 White Blood Count 8.9 x10^3/uL (4.0-11.0) Red Blood Count 3.59 x10^6/uL (4.30-5.70) Hemoglobin 8.9 g/dL (13.0-17.5) Hematocrit 28.5 % (39.0-53.0) Mean Corpuscular Volume 79 fL (79-100) Mean Corpuscular Hemoglobin 25 pg (25-35) Mean Corpuscular Hemoglobin Concent 31 g/dL (31-37) Red Cell Distribution Width 17.9 % (11.5-14.5) Platelet Count 388 x10^3/uL (140-400) Neutrophils (%) (Auto) 61 % (31-73) Lymphocytes (%) (Auto) 33 % (24-48) Monocytes (%) (Auto) 4 % (0-9) Eosinophils (%) (Auto) 1 % (0-3) Basophils (%) (Auto) 1 % (0-3) Neutrophils # (Auto) 5.4 x10^3/uL (1.8-7.7) Lymphocytes # (Auto) 2.9 x10^3/uL (1.0-4.8) Monocytes # (Auto) 0.4 x10^3/uL (0.0-1.1) Eosinophils # (Auto) 0.1 x10^3/uL (0.0-0.7) Basophils # (Auto) 0.0 x10^3/uL (0.0-0.2) Sodium Level 148 mmol/L (136-145) Potassium Level 3.3 mmol/L (3.5-5.1) Chloride Level 109 mmol/L (98-107) Carbon Dioxide Level 23 mmol/L (21-32) Anion Gap 16 (6-14) Blood Urea Nitrogen 6 mg/dL (8-26) Creatinine 1.2 mg/dL (0.7-1.3) Estimated GFR (Cockcroft-Gault) 76.9 BUN/Creatinine Ratio 5 (6-20) Glucose Level 130 mg/dL (70-99) Lactic Acid Level 4.3 mmol/L (0.4-2.0) 3.7 mmol/L (0.4-2.0) Calcium Level 8.6 mg/dL (8.5-10.1) Magnesium Level 1.7 mg/dL (1.8-2.4) Total Bilirubin 0.6 mg/dL (0.2-1.0) Aspartate Amino Transf (AST/SGOT) 23 U/L (15-37) Alanine Aminotransferase (ALT/SGPT) 12 U/L (16-63) Alkaline Phosphatase 69 U/L (46-116) Troponin I Quantitative 0.032 ng/mL (0.000-0.055) Total Protein 7.4 g/dL (6.4-8.2) Albumin 2.6 g/dL (3.4-5.0) Albumin/Globulin Ratio 0.5 (1.0-1.7) Test 03/27/20 07:45 03/27/20 08:00 03/28/20 05:15 03/28/20 07:25 White Blood Count 8.2 x10^3/uL (4.0-11.0) 7.0 x10^3/uL (4.0-11.0) Red Blood Count 3.38 x10^6/uL (4.30-5.70) 2.98 x10^6/uL (4.30-5.70) Hemoglobin 8.3 g/dL (13.0-17.5) 7.5 g/dL (13.0-17.5) Hematocrit 26.4 % (39.0-53.0) 23.1 % (39.0-53.0) Mean Corpuscular Volume 78 fL (79-100) 78 fL (79-100) Mean Corpuscular Hemoglobin 25 pg (25-35) 25 pg (25-35) Mean Corpuscular Hemoglobin Concent 32 g/dL (31-37) 32 g/dL (31-37) Red Cell Distribution Width 17.6 % (11.5-14.5) 18.0 % (11.5-14.5) Platelet Count 378 x10^3/uL (140-400) 327 x10^3/uL (140-400) Neutrophils (%) (Auto) 52 % (31-73) 60 % (31-73) Lymphocytes (%) (Auto) 37 % (24-48) 29 % (24-48) Monocytes (%) (Auto) 9 % (0-9) 7 % (0-9) Eosinophils (%) (Auto) 2 % (0-3) 3 % (0-3) Basophils (%) (Auto) 1 % (0-3) 1 % (0-3) Neutrophils # (Auto) 4.2 x10^3/uL (1.8-7.7) 4.2 x10^3/uL (1.8-7.7) Lymphocytes # (Auto) 3.0 x10^3/uL (1.0-4.8) 2.1 x10^3/uL (1.0-4.8) Monocytes # (Auto) 0.7 x10^3/uL (0.0-1.1) 0.5 x10^3/uL (0.0-1.1) Eosinophils # (Auto) 0.2 x10^3/uL (0.0-0.7) 0.2 x10^3/uL (0.0-0.7) Basophils # (Auto) 0.1 x10^3/uL (0.0-0.2) 0.1 x10^3/uL (0.0-0.2) Sodium Level 144 mmol/L (136-145) 143 mmol/L (136-145) Potassium Level 3.7 mmol/L (3.5-5.1) 3.1 mmol/L (3.5-5.1) Chloride Level 108 mmol/L (98-107) 110 mmol/L (98-107) Carbon Dioxide Level 24 mmol/L (21-32) 26 mmol/L (21-32) Anion Gap 12 (6-14) 7 (6-14) Blood Urea Nitrogen 5 mg/dL (8-26) 6 mg/dL (8-26) Creatinine 0.8 mg/dL (0.7-1.3) 1.0 mg/dL (0.7-1.3) Estimated GFR (Cockcroft-Gault) 122.8 94.9 Glucose Level 110 mg/dL (70-99) 117 mg/dL (70-99) Calcium Level 8.4 mg/dL (8.5-10.1) 8.3 mg/dL (8.5-10.1) Magnesium Level 2.5 mg/dL (1.8-2.4) 2.0 mg/dL (1.8-2.4) Troponin I Quantitative 0.064 ng/mL (0.000-0.055) O2 Saturation 99 % (92-99) 94 % (92-99) Arterial Blood pH 7.46 (7.35-7.45) 7.45 (7.35-7.45) Arterial Blood pCO2 at Patient Temp 35 mmHg (35-46) 36 mmHg (35-46) Arterial Blood pO2 at Patient Temp 175 mmHg (75-108) 72 mmHg (75-108) Arterial Blood HCO3 24 mmol/L (21-28) 25 mmol/L (21-28) Arterial Blood Base Excess 1 mmol/L (-3-3) 1 mmol/L (-3-3) FiO2 60/vent 40 Laboratory Tests Test 03/28/20 05:15 03/28/20 07:25 White Blood Count 7.0 x10^3/uL (4.0-11.0) Red Blood Count 2.98 x10^6/uL (4.30-5.70) Hemoglobin 7.5 g/dL (13.0-17.5) Hematocrit 23.1 % (39.0-53.0) Mean Corpuscular Volume 78 fL (79-100) Mean Corpuscular Hemoglobin 25 pg (25-35) Mean Corpuscular Hemoglobin Concent 32 g/dL (31-37) Red Cell Distribution Width 18.0 % (11.5-14.5) Platelet Count 327 x10^3/uL (140-400) Neutrophils (%) (Auto) 60 % (31-73) Lymphocytes (%) (Auto) 29 % (24-48) Monocytes (%) (Auto) 7 % (0-9) Eosinophils (%) (Auto) 3 % (0-3) Basophils (%) (Auto) 1 % (0-3) Neutrophils # (Auto) 4.2 x10^3/uL (1.8-7.7) Lymphocytes # (Auto) 2.1 x10^3/uL (1.0-4.8) Monocytes # (Auto) 0.5 x10^3/uL (0.0-1.1) Eosinophils # (Auto) 0.2 x10^3/uL (0.0-0.7) Basophils # (Auto) 0.1 x10^3/uL (0.0-0.2) Sodium Level 143 mmol/L (136-145) Potassium Level 3.1 mmol/L (3.5-5.1) Chloride Level 110 mmol/L (98-107) Carbon Dioxide Level 26 mmol/L (21-32) Anion Gap 7 (6-14) Blood Urea Nitrogen 6 mg/dL (8-26) Creatinine 1.0 mg/dL (0.7-1.3) Estimated GFR (Cockcroft-Gault) 94.9 Glucose Level 117 mg/dL (70-99) Calcium Level 8.3 mg/dL (8.5-10.1) Magnesium Level 2.0 mg/dL (1.8-2.4) O2 Saturation 94 % (92-99) Arterial Blood pH 7.45 (7.35-7.45) Arterial Blood pCO2 at Patient Temp 36 mmHg (35-46) Arterial Blood pO2 at Patient Temp 72 mmHg (75-108) Arterial Blood HCO3 25 mmol/L (21-28) Arterial Blood Base Excess 1 mmol/L (-3-3) FiO2 40 Medications Active Scripts Medications Dose Route/Sig Max Daily Dose Days Date Category Furosemide 40 Mg Tablet 40 Mg PO DAILY 02/02/20 Rx Tramadol Hcl 50 Mg Tablet 50 Mg PO PRN Q6HRS PRN 6 02/02/20 Rx Metoprolol Succinate ( Xl ) (Metoprolol Succinate) 25 Mg Tab.er.24h 12.5 Mg PO DAILY 02/02/20 Rx Clopidogrel (Clopidogrel Bisulfate) 75 Mg Tablet 75 Mg PO DAILYWBKFT 02/02/20 Rx Lisinopril 10 Mg Tablet 1 Tab PO DAILY 02/02/20 Rx Atorvastatin Calcium 80 Mg Tablet 80 Mg PO QHS 02/02/20 Rx Klor-Con M20 (Potassium Chloride) 20 Meq Tab.er.prt 20 Meq PO TID 01/31/20 Reported Pantoprazole Sodium (Pantoprazole Sodium) 40 Mg Tablet.dr 40 Mg PO BID 01/31/20 Reported Duoneb 0.5-3(2.5) Mg/3 Ml (Albuterol/Ipratropium) 3 Ml Ampul.neb 3 Ml NEB PRN Q6HRS PRN 01/31/20 Reported Acetaminophen 325 Mg Tablet 1 Tab PO PRN Q6HRS PRN 24 01/31/20 Reported Triumeq Tablet (Abacavir/Dolutegravir/Lamivudi) 1 Each Tablet 1 Tab PO DAILY 01/31/20 Reported Gabapentin (Gabapentin) 300 Mg Capsule 100 Mg PO TID 01/31/20 Reported Children's Aspirin (Aspirin) 81 Mg Tab.chew 1 Tab PO DAILY 01/31/20 Reported Comments CXR 03/26/20 IMPRESSION: Decrease in diffuse interstitial infiltrate. Impression . IMPRESSION: 1. Acute hypoxemic respiratory failure secondary to ide-rf-fnnecvxi cardiopulmonary arrest. extubated 03/26, re-intubated for V-Tac Arrest 2. History of ventricular fibrillation with previous gdf-pi-vipduqwb cardiac arrest. 3. History of coronary artery disease, status post percutaneous coronary intervention to the circumflex. 4. History of gastrointestinal bleed. 5. Chronic systolic heart failure. 6. Ischemic cardiomyopathy, ejection fraction 15%. 7. Status post pacemaker implantation. 8. Hypertension. 9. Hypokalemia. 10. Previous kidney injury requiring hemodialysis. 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 12. Human immunodeficiency virus. 13. Polysubstance use. Plan . Continue current AC support, will need to d/w cardiology /family reg intermediate plans S/P cath 03/27/20 was clean AICD vs. life vest-- per cardiology Continue empiric antibiotics per infectious disease--zosyn and po vanco Follow cultures, respiratory culture growing out gram-positive cocci Follow other cardiology recommendations-- on amio/primacor gtt Hypotension per cardiology Follow GI recs PT/OT//ST DVT/GI prophylaxis Discussed with RN and RT Critical care time [id number] NERISSA AGUILAR MD Mar 28, 2020 11:30
--- NOTE | 2020-03-28 15:22 | PDOC ---
GREGORY REYNA [employer] ATTENDANT 03/28/20 1522: CARDIO Progress Notes Date and Time Date of Service 03/28/19 Time of Evaluation 1400 Subjective Subjective: Other (sedated, intubated ) Vitals Vitals Vital Signs Date Time Temp Pulse Resp B/P (MAP) Pulse Ox O2 Delivery O2 Flow Rate FiO2 03/28/20 12:00 97.9 62 20 76/44 (55) 99 Ventilator 97.9 Weight Weight [ ] Input and Output Intake and Output Intake and Output 03/28/20 07:00 Intake Total 3119.55 ml Output Total 4245 ml Balance -1125.45 ml Intake Oral 100 ml IV Total 3019.55 ml Output Urine Total 3495 ml Gastric Drainage Total 750 ml # Bowel Movements 1 Laboratory Labs Laboratory Tests Test 03/28/20 05:15 03/28/20 07:25 White Blood Count 7.0 x10^3/uL (4.0-11.0) Red Blood Count 2.98 x10^6/uL (4.30-5.70) Hemoglobin 7.5 g/dL (13.0-17.5) Hematocrit 23.1 % (39.0-53.0) Mean Corpuscular Volume 78 fL (79-100) Mean Corpuscular Hemoglobin 25 pg (25-35) Mean Corpuscular Hemoglobin Concent 32 g/dL (31-37) Red Cell Distribution Width 18.0 % (11.5-14.5) Platelet Count 327 x10^3/uL (140-400) Neutrophils (%) (Auto) 60 % (31-73) Lymphocytes (%) (Auto) 29 % (24-48) Monocytes (%) (Auto) 7 % (0-9) Eosinophils (%) (Auto) 3 % (0-3) Basophils (%) (Auto) 1 % (0-3) Neutrophils # (Auto) 4.2 x10^3/uL (1.8-7.7) Lymphocytes # (Auto) 2.1 x10^3/uL (1.0-4.8) Monocytes # (Auto) 0.5 x10^3/uL (0.0-1.1) Eosinophils # (Auto) 0.2 x10^3/uL (0.0-0.7) Basophils # (Auto) 0.1 x10^3/uL (0.0-0.2) Sodium Level 143 mmol/L (136-145) Potassium Level 3.1 mmol/L (3.5-5.1) Chloride Level 110 mmol/L (98-107) Carbon Dioxide Level 26 mmol/L (21-32) Anion Gap 7 (6-14) Blood Urea Nitrogen 6 mg/dL (8-26) Creatinine 1.0 mg/dL (0.7-1.3) Estimated GFR (Cockcroft-Gault) 94.9 Glucose Level 117 mg/dL (70-99) Calcium Level 8.3 mg/dL (8.5-10.1) Magnesium Level 2.0 mg/dL (1.8-2.4) O2 Saturation 94 % (92-99) Arterial Blood pH 7.45 (7.35-7.45) Arterial Blood pCO2 at Patient Temp 36 mmHg (35-46) Arterial Blood pO2 at Patient Temp 72 mmHg (75-108) Arterial Blood HCO3 25 mmol/L (21-28) Arterial Blood Base Excess 1 mmol/L (-3-3) FiO2 40 Microbiology Micro Microbiology 03/26/20 Urine Culture - Final, Complete 03/21/20 Gram Stain Evaluation - Final, Complete 03/21/20 Respiratory Culture - Final, Complete 03/20/20 Blood Culture - Final, Complete NO GROWTH AFTER 5 DAYS Physical Exam HEENT: Neck Supple W Full Motion Chest: Symmetric LUNGS: Other (mechanical vent ) Heart: RRR (SR) Abdomen: Other (non-distended ) Extremities: No Edema Neurology: other (sedated ) Assessment Assessment 1. OOH, witness cardiac arrest; recurrent [place], [place] arrest 07/21/20. On Amiodarone gtt. 2. Mild troponin elevation; trop highest 0.3 s/p resuscitation. EKG with LBBB 3. Leukocytosis, fevers. ? sepsis 4. H/o Vfib OOH arrest; probable ischemic in nature, antiarrhythmics discontinued in past due to QTc prolongation. QTC 546 today 5. Acute respiratory failure secondary to above; extubated, but reintubated follow cardiac arrest due to [place], VT 07/21/20. 6. CAD s/p PCI/BMS to the LCx 12/11/19. Treated with ASA,Brilinta initially, which was held due to recurrent GIB requiring transfusions.Due to recent PCI/BMS, Plavix was resumed while at [facility]. ASA was discontinued.No further bleeding concerns. 7. Chronic systolic CHF; appears compensated 8. ICM; LVEF 20-25%. 9. SSS s/p leadless PPM implantation (Medtronic Micra). Device does not store history rhythm data. 10. Hypertension; low end. requiring pressor support 11. Hypokalemia, hypomagnesemia 12. H/o DAIJA requiringHD; renal function improvedand HD catheter removed 13. 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 HIV 15. Substance abuse; UDS + cocaine at [facility] 16. Noncompliance 17. Tobaccoism Recommendations Repeat EKG in am Consider AICD, ? candidacy Secondary prevention measures as able. Plavix, statin therapy. Hold lisinopril, Toprol with hypotension Lung optimization, vent management as per pulm Supportive care Poor prognosis. D/w partner, Stevenson. After further discussed with patients brothers and sisters, they would like to continue with full aggressive care at this time. Justicifation of Admission Dx: Justifications for Admission: Justification of Admission Dx: Yes YAMILE HDEZ MD 03/28/20 2030: CARDIO Progress Notes Assessment Assessment Patient seen and evaluated. I agree with our nurse practitioners assessment and plan. Out of hospital cardiac arrest; recurrent Torsades, VT arrest 07/21/20 monitoring EKG and lab. Consideration of an ICD based on the patient's clinical course. H/o Vfib OOH arrest; probable ischemic in nature, antiarrhythmics discontinued in past due to QTc prolongation. QTC 546 today Acute respiratory failure secondary to above; extubated, but reintubated follow cardiac arrest due to [place], VT 07/21/20. CAD s/p PCI/BMS to the LCx 12/11/19. Treated with ASA,Brilinta initially, which was held due to recurrent GIB requiring transfusions.Due to recent PCI/BMS, Plavix was resumed while at [facility]. ASA was discontinued.No further bleeding concerns. ICM; LVEF 20-25%. SSS s/p leadless PPM implantation (Medtronic Micra). Device does not store history rhythm data. Hypertension; low end. requiring pressor support H/o DAIJA requiringHD; renal function improvedand HD catheter removed GIB secondary to duodenal AVM bleed s/p clipping HIV Substance abuse; UDS + cocaine at [facility] GREGORY REYNA APRN Mar 28, 2020 15:22 YAMILE HDEZ MD Mar 28, 2020 20:30
[2020-03-28] MEDS: NOREPINEPHRINE VIAL 8 MG in IV DEXTROSE 5% 250 ML IV PRN (19:12)
--- NOTE | 2020-03-28 20:05 | NUR ---
At shift change, Levophed started as SBP was in 60s. Then right before 1999 I attempted to turn patient onto L side, but patient started going in and out of V Tach and BP elevated. Patient placed supine again, hooked up to code cart (new fast patches placed on patient), and Levo turned off. Dr. Mills paged, updated on situation. Orders received to give 80 of Lidocaine IVP now and if that does not correct the issue to restart Amio gtt with 1/2 the bolus.
[2020-03-28] MEDS ORDERED: LIDOCAINE 2% 100 MG/5 ML SYRINGE. IV ONE (20:15)
[2020-03-28] MEDS: ATORVASTATIN CALCIUM 40 MG TABLET. PO SCH (20:32)
[2020-03-28] MEDS: AMIODARONE HCL 200 MG TABLET. PO SCH (20:33)
[2020-03-29] VITALS (24 sets, daily range): BP systolic 94–140; BP diastolic 41–59
[2020-03-29] MEDS: MIDAZOLAM 100mg/100ml NS BAG 100 ML IV PRN ×3 (00:06→18:18)
[2020-03-29] MEDS: DEXMEDETOMIDINE 400 MCG in IV NORMAL SALINE 100ML 96 ML IV PRN ×2 (01:59→07:49)
[2020-03-29] MEDS: MILRINONE 20MG/100ML PREMIX 100 ML IV PRN ×3 (02:00→22:48)
[2020-03-29 05:08] LABS: BASO # 0.1 x10^3/uL (0.0-0.2); BASO % 1 % (0-3); EOS # 0.2 x10^3/uL (0.0-0.7); EOS % 2 % (0-3); HEMATOCRIT 22.3 % (39.0-53.0); HEMOGLOBIN 7.2 g/dL (13.0-17.5); LYMPH # 2.1 x10^3/uL (1.0-4.8); LYMPH % 30 % (24-48); MEAN CORPUSCULAR HEMOGLOBIN 25 pg (25-35); MEAN CORPUSCULAR HGB CONC 32 g/dL (31-37); MEAN CORPUSCULAR VOLUME 77 fL (79-100); MONO # 0.4 x10^3/uL (0.0-1.1); MONO % 6 % (0-9); NEUT # 4.3 x10^3/uL (1.8-7.7); NEUT % 61 % (31-73); PLATELET COUNT 309 x10^3/uL (140-400); WHITE BLOOD COUNT 7.1 x10^3/uL (4.0-11.0)
[2020-03-29 05:16] LABS: CALCIUM 8.5 mg/dL (8.5-10.1); CREATININE 1.1 mg/dL (0.7-1.3); GFR 85.1; POTASSIUM 3.5 mmol/L (3.5-5.1)
[2020-03-29] MEDS: PIPERACILLIN/TAZOBACTAM 3.375 GM in IV NORMAL SALINE 50ML 50 ML IV SCH ×3 (05:57→18:03)
[2020-03-29 07:29] LABS: BASE EXCESS ABG -4 mmol/L (-3-3); HCO3 ABG 20 mmol/L (21-28); PCO2 ABG 30 mmHg (35-46); PO2 ABG 89 mmHg (75-108); SAT O2 ABG 96 % (92-99)
[2020-03-29] MEDS: PANTOPRAZOLE IV PUSH 40 MG VIAL. IVP SCH (07:41)
[2020-03-29] MEDS: AMIODARONE HCL 200 MG TABLET. PO SCH (07:46)
[2020-03-29] MEDS: CLOPIDOGREL BISULFATE 75 MG TABLET PO SCH (07:46)
[2020-03-29] MEDS: FUROSEMIDE 40 MG/4 ML VIAL. IVP SCH (07:47)
--- NOTE | 2020-03-29 07:48 | PDOC ---
Infectious Disease Note Subjective Subjective Patient intubated/sedated cont to have VT off and on ROS ROS no n/v/d/ Vital Sign Vital Signs Vital Signs Date Time Temp Pulse Resp B/P (MAP) Pulse Ox O2 Delivery O2 Flow Rate FiO2 03/29/20 07:20 100 Ventilator 03/29/20 06:00 68 20 107/51 (69) 03/29/20 04:00 99.9 99.9 Physical Exam PHYSICAL EXAM GENERAL: Intubated, sedated. HEENT: Conjunctival suffusion. Pupils equal, reactive. ETT OGT present. NECK: Supple. LUNGS: Clear anteriorly. HEART: S1, S2, tachycardia. ABDOMEN: Obese, mildly distended. Bowel sounds present. EXTREMITIES: No edema or cyanosis. DERMATOLOGIC: Warm and dry. No generalized rash. NEUROLOGIC: Unable to assess. Labs Lab Laboratory Tests Test 03/29/20 05:00 White Blood Count 7.1 x10^3/uL (4.0-11.0) Red Blood Count 2.90 x10^6/uL (4.30-5.70) Hemoglobin 7.2 g/dL (13.0-17.5) Hematocrit 22.3 % (39.0-53.0) Mean Corpuscular Volume 77 fL (79-100) Mean Corpuscular Hemoglobin 25 pg (25-35) Mean Corpuscular Hemoglobin Concent 32 g/dL (31-37) Red Cell Distribution Width 18.0 % (11.5-14.5) Platelet Count 309 x10^3/uL (140-400) Neutrophils (%) (Auto) 61 % (31-73) Lymphocytes (%) (Auto) 30 % (24-48) Monocytes (%) (Auto) 6 % (0-9) Eosinophils (%) (Auto) 2 % (0-3) Basophils (%) (Auto) 1 % (0-3) Neutrophils # (Auto) 4.3 x10^3/uL (1.8-7.7) Lymphocytes # (Auto) 2.1 x10^3/uL (1.0-4.8) Monocytes # (Auto) 0.4 x10^3/uL (0.0-1.1) Eosinophils # (Auto) 0.2 x10^3/uL (0.0-0.7) Basophils # (Auto) 0.1 x10^3/uL (0.0-0.2) Sodium Level 142 mmol/L (136-145) Potassium Level 3.5 mmol/L (3.5-5.1) Chloride Level 111 mmol/L (98-107) Carbon Dioxide Level 24 mmol/L (21-32) Anion Gap 7 (6-14) Blood Urea Nitrogen 8 mg/dL (8-26) Creatinine 1.1 mg/dL (0.7-1.3) Estimated GFR (Cockcroft-Gault) 85.1 Glucose Level 96 mg/dL (70-99) Calcium Level 8.5 mg/dL (8.5-10.1) Magnesium Level 2.0 mg/dL (1.8-2.4) Micro Microbiology 03/21/20 Gram Stain Evaluation - Final, Complete 03/21/20 Respiratory Culture - Final, Complete 03/20/20 Blood Culture - Final, Complete NO GROWTH AFTER 5 DAYS Objective Assessment 1. Fever improved 2. Witnessed cardiac arrest, status post defibrillation. 3. Leukocytosis and lactic acidosis. 4. Human immunodeficiency virus, CD4 was 403 on 01/16 viral load less than 20 on 01/23on Triumeq. 5. Acute hypoxic respiratory failure 6. History of ventricular tachycardia, Coronary artery disease, status post PCI. 7. Status post pacemaker for bradycardia 12/27 at [place]. 8. History of acute kidney injury, on hemodialysis in the past. 9. 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 10. Substance dependence. UDS positive for cocaine at outside hospital. 11. Hypertension/hyperlipidemia 12. Hypokalemia/hypomagnesemia. 13. H/O Chronic systolic congestive heart failure. 14. History of rectal abscess. 15. History of Necrotizing Pneumonia with Klebsiella at [facility] November 2019 Plan Plan of Care Continue Zosyn, Continue p.o. vancomycin for prophylaxis with history of recurrent C. difficile Continue Triumeq Follow up labs and cultures. Continue supportive care Discussed with nursing. MARLA NICOLE MD Mar 29, 2020 07:48
[2020-03-29] MEDS: ELECTROLYTE (ICU) PROTOCOL. MC SCH (08:42)
--- NOTE | 2020-03-29 08:42 | PDOC ---
[employer] PROGRESS NOTE Date of Service DOS: DATE: 03/29/20 TIME: 08:41 Chief Complaint Chief Complaint VTE Prophylaxis Ordered VTE Prophylaxis Devices: Yes VTE Pharmacological Prophylaxi: Yes Assessment/Plan Assessment/Plan ASSESSMENT 1. out of hospital arrest , witness cardiac arrest; Defibrillation // AMI ruled out. 2. H/o Vfib probable ischemic in nature, antiarrhythmics discontinued in past due to QTc prolongation of 600. 3. Acute hypoxic respiratory failure requiring vent support 4. CAD s/p PCI/BMS to the LCx 12/11/19. Treated with ASA,Brilinta initially, which was held due to recurrent GIB requiring transfusions.Due to recent PCI/BMS, Plavix was resumed while at [facility]. ASA was d/c'd 5. Chronic systolic CHF 6. ischemic cardiomyopathy LVEF 20-25%. 7. SSS s/p leadless PPM 8. Hypertension; // requiring pressor support 9. Hypokalemia, hypomagnesemia 10. H/o DAIJA requiringHD; renal function improvedand HD catheter removed 11. 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 HIV 13. Substance abuse; UDS + cocaine , ALCOHOL, TOBACCO 14. Leukocytosis, fevers. ? sepsis Covid negative. 15. H/o Vfib OOH arrest; probable ischemic in nature, antiarrhythmics discontinued in past due to QTc prolongation of 600. EKG at [facility] with QTc 507, 528. 16. Human immunodeficiency virus, CD4 was 403 on 01/16 viral load less than 20 on 01/23on [facility]. 17. History of ventricular tachycardia, Coronary artery disease, status post PCI. 18. Status post pacemaker for bradycardia 12/27 at [place]. 19. hypernatremia, volume excess plan icu bed cardiology consult pulm consult Device interrogation Replace Mg, lytes Secondary prevention measures as able Resume Plavix. No ASA due to recent GIB Monitor LFTs Pressor support; wean as able Hold lisinopril, Toprol with hypotension Echo vent management GI CONSULT COVID 19 SCREEN vent support assist-control mode 50% and PEEP of 5 On heparin drip per cardiology hiv screen Echo to assess LV systolic function if COVID PCR negative Tube feeding on hold per GI, concern for ileus follow other GI recommendations vent support assist-control mode 40% and a PEEP of 5 Continue Zosyn,Zyvox Continue p.o. vancomycin for prophylaxis with history of recurrent C. difficile Continue Triumeq Follow up labs and cultures. 35% and a PEEP of 5 dec ns rate prognosis very guarded 39 MIN CC TIME History of Present Illness History of Present Illness Identification/Chief Complaint Chief Complaint admitted to icu , out of hospial arrest CAD s/p PCI/stent, cardiomyopathy, and prior cardiac arrest, presented secondary to cardiac arrest at home. Was at home with partner, Stevenson, watching television. Patient suddenly started breathing more deeply and began gasping for air. Eyes were wide and glassy. Was unresponsive. Partner was unable to feel pulse so he put him on the floor, called EMS and began chest compressions. Partner reports him drinking 3 malt beverages that evening while watching TV. No known sick contacts. EMS arrived within minutes. ROSC returned following one defibrillation. Although partner declined drug use, Narcan was administered en route due to pinpoint pupi ls. Limited effect from the Narcan. UDS was + for cocaine. IS COVID 19 PUI hx cardiac arrest on December 19, 2019. Patient was apparently found arrest in his car EMS noted in v-fib. ROSC was achieved following 1 defibrillation and 1 round of epi.//activated as STEMI with LBBB. Emergent cath notable for blockage of left circumflex. //PCI/BMS to the Left circumflex. went into Vfib in director of cath lab and was initiated on Amiodarone therapy. LVEF noted at 20-25%. Developed DAIJA due to cardiogenic shock. had multiple episodes of bradycardia/significant pauses mostly related to suctioning. then leadlessPPM placement.Treated for Klebsiella PNA as well. course further complicated by GIB requiring tranfusion. 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 FiO2 40%, PEEP 5. Discussed with RN, episode of V-tach overnight. Cardiology to consider AICD. Will continue with antibiotics and diuresis. 03/28 Afebrile. No acute events overnight. On vent, FiO2 40%, PEEP 5. Potassium low today, will replace. Continue supportive care and antibiotics. Discussed with RN 03/27 Patient seen in ICU. Breathing on mechanical ventilator, FiO2 60%, PEEP 5. Patient failed extubation yesterday. Continue Zosyn, Zyvox, p.o. vancomycin. 03/26 Patient seen and evaluated in ICU. On vent FiO2 35%, PEEP 5. Afebrile. Continue Zosyn, Zyvox, and p.o. vancomycin. Chart and labs reviewed, discussed with RN. Vitals/I&O Vitals/I&O: Vital Signs Date Time Temp Pulse Resp B/P (MAP) Pulse Ox O2 Delivery O2 Flow Rate FiO2 03/29/20 08:00 Mechanical Ventilator 03/29/20 08:00 94 20 135/59 (84) 98 03/29/20 07:00 99.1 99.1 I & O 03/28/20 03/28/20 03/29/20 15:00 23:00 07:00 Intake Total 620 ml 1034.50 ml 1294 ml Output Total 100 ml 925 ml 600 ml Balance 520 ml 109.50 ml 694 ml Physical Exam Physical Exam: GENERAL: Intubated, sedated. HEENT: Conjunctival suffusion. Pupils equal, reactive. ETT OGT present. NECK: Supple. LUNGS: Clear anteriorly. HEART: S1, S2, tachycardia. ABDOMEN: Obese, mildly distended. Bowel sounds present. EXTREMITIES: No edema or cyanosis. DERMATOLOGIC: Warm and dry. No generalized rash. NEUROLOGIC: Unable to assess. General: Other (Intubated) Heart: Other (Rate of 110) Lungs: Clear Abdomen: Normal bowel sounds Extremities: No cyanosis, No edema, Normal pulses Skin: No significant lesion Labs Labs: Laboratory Tests Test 03/29/20 05:00 White Blood Count 7.1 x10^3/uL (4.0-11.0) Red Blood Count 2.90 x10^6/uL (4.30-5.70) Hemoglobin 7.2 g/dL (13.0-17.5) Hematocrit 22.3 % (39.0-53.0) Mean Corpuscular Volume 77 fL (79-100) Mean Corpuscular Hemoglobin 25 pg (25-35) Mean Corpuscular Hemoglobin Concent 32 g/dL (31-37) Red Cell Distribution Width 18.0 % (11.5-14.5) Platelet Count 309 x10^3/uL (140-400) Neutrophils (%) (Auto) 61 % (31-73) Lymphocytes (%) (Auto) 30 % (24-48) Monocytes (%) (Auto) 6 % (0-9) Eosinophils (%) (Auto) 2 % (0-3) Basophils (%) (Auto) 1 % (0-3) Neutrophils # (Auto) 4.3 x10^3/uL (1.8-7.7) Lymphocytes # (Auto) 2.1 x10^3/uL (1.0-4.8) Monocytes # (Auto) 0.4 x10^3/uL (0.0-1.1) Eosinophils # (Auto) 0.2 x10^3/uL (0.0-0.7) Basophils # (Auto) 0.1 x10^3/uL (0.0-0.2) Sodium Level 142 mmol/L (136-145) Potassium Level 3.5 mmol/L (3.5-5.1) Chloride Level 111 mmol/L (98-107) Carbon Dioxide Level 24 mmol/L (21-32) Anion Gap 7 (6-14) Blood Urea Nitrogen 8 mg/dL (8-26) Creatinine 1.1 mg/dL (0.7-1.3) Estimated GFR (Cockcroft-Gault) 85.1 Glucose Level 96 mg/dL (70-99) Calcium Level 8.5 mg/dL (8.5-10.1) Magnesium Level 2.0 mg/dL (1.8-2.4) Comment Review of Relevant I have reviewed the following items joel (where applicable) has been applied. Medications: Current Medications Medications (Trade) Dose Ordered Sig/Guy Route PRN Reason Start Time Stop Time Status Last Admin Dose Admin Amiodarone HCl (Cordarone) 200 mg BID PO 03/28/20 21:00 03/29/20 07:46 Lidocaine HCl (Lidocaine HCl 2% Abboject) 80 mg 1X ONCE IV 03/28/20 20:15 03/28/20 20:16 DC 03/28/20 19:55 Justifications for Admission Other Justification CARDIAC ARREST ROCIO MOHAN MD Mar 29, 2020 08:42
[2020-03-29] MEDS: DOLUTEGRAVIR PO SCH (08:46)
[2020-03-29] MEDS: LAMIVUDINE PO SCH (08:46)
[2020-03-29] MEDS: ABACAVIR PO SCH (08:46)
[2020-03-29] MEDS: VANCOMYCIN 125 MG/2.5 ML ORAL SOLUTION. PO SCH ×2 (08:46→20:44)
[2020-03-29 09:00] LABS: FIO2 ABG 40%+5
[2020-03-29] MEDS: fentaNYL HIGH DOSE PCA 55 ML IV PRN ×2 (09:19→22:15)
--- NOTE | 2020-03-29 10:32 | PDOC ---
GREGORY REYNA CORRECTIONAL LIEUTENANT 03/29/20 1032: CARDIO Progress Notes Date and Time Date of Service 03/29/20 Time of Evaluation 1028 Subjective Subjective: Other (sedated, intubated ) Vitals Vitals Vital Signs Date Time Temp Pulse Resp B/P (MAP) Pulse Ox O2 Delivery O2 Flow Rate FiO2 03/29/20 10:00 102 24 97/41 (59) 100 Ventilator 03/29/20 07:00 99.1 99.1 Weight Weight [ ] Input and Output Intake and Output Intake and Output 03/29/20 07:00 Intake Total 2948.50 ml Output Total 1625 ml Balance 1323.50 ml Intake Oral 120 ml IV Total 2828.50 ml Output Urine Total 875 ml Gastric Drainage Total 750 ml Laboratory Labs Laboratory Tests Test 03/29/20 05:00 03/29/20 08:00 White Blood Count 7.1 x10^3/uL (4.0-11.0) Red Blood Count 2.90 x10^6/uL (4.30-5.70) Hemoglobin 7.2 g/dL (13.0-17.5) Hematocrit 22.3 % (39.0-53.0) Mean Corpuscular Volume 77 fL (79-100) Mean Corpuscular Hemoglobin 25 pg (25-35) Mean Corpuscular Hemoglobin Concent 32 g/dL (31-37) Red Cell Distribution Width 18.0 % (11.5-14.5) Platelet Count 309 x10^3/uL (140-400) Neutrophils (%) (Auto) 61 % (31-73) Lymphocytes (%) (Auto) 30 % (24-48) Monocytes (%) (Auto) 6 % (0-9) Eosinophils (%) (Auto) 2 % (0-3) Basophils (%) (Auto) 1 % (0-3) Neutrophils # (Auto) 4.3 x10^3/uL (1.8-7.7) Lymphocytes # (Auto) 2.1 x10^3/uL (1.0-4.8) Monocytes # (Auto) 0.4 x10^3/uL (0.0-1.1) Eosinophils # (Auto) 0.2 x10^3/uL (0.0-0.7) Basophils # (Auto) 0.1 x10^3/uL (0.0-0.2) Sodium Level 142 mmol/L (136-145) Potassium Level 3.5 mmol/L (3.5-5.1) Chloride Level 111 mmol/L (98-107) Carbon Dioxide Level 24 mmol/L (21-32) Anion Gap 7 (6-14) Blood Urea Nitrogen 8 mg/dL (8-26) Creatinine 1.1 mg/dL (0.7-1.3) Estimated GFR (Cockcroft-Gault) 85.1 Glucose Level 96 mg/dL (70-99) Calcium Level 8.5 mg/dL (8.5-10.1) Magnesium Level 2.0 mg/dL (1.8-2.4) O2 Saturation 96 % (92-99) Arterial Blood pH 7.43 (7.35-7.45) Arterial Blood pCO2 at Patient Temp 30 mmHg (35-46) Arterial Blood pO2 at Patient Temp 89 mmHg (75-108) Arterial Blood HCO3 20 mmol/L (21-28) Arterial Blood Base Excess -4 mmol/L (-3-3) FiO2 40%+5 Microbiology Micro Microbiology 03/26/20 Urine Culture - Final, Complete 03/21/20 Gram Stain Evaluation - Final, Complete 03/21/20 Respiratory Culture - Final, Complete 03/20/20 Blood Culture - Final, Complete NO GROWTH AFTER 5 DAYS Physical Exam HEENT: Neck Supple W Full Motion Chest: Symmetric LUNGS: Other (mechanical vent ) Heart: RRR (SR) Abdomen: Other (non-distended ) Extremities: No Edema Neurology: other (sedated ) Assessment Assessment 1. OOH, witness cardiac arrest; recurrent [place], [place] arrest 07/21/20. On Amiodarone gtt. [facility] with patent LCx stent. No lesions needing intervention. Further VT yesterday evening. S/p Lidocaine 2. Mild troponin elevation; trop highest 0.3 s/p resuscitation. EKG with LBBB 3. Leukocytosis, fevers. ? sepsis 4. H/o Vfib OOH arrest; probable ischemic in nature, antiarrhythmics discontinued in past due to QTc prolongation. QTC 546 03/28 5. Acute respiratory failure secondary to above; extubated, but reintubated following cardiac arrest due to [place], [place] 07/21/20. 6. CAD s/p PCI/BMS to the LCx 9/20/20. 7. Acute on chronic systolic CHF 8. ICM; LVEF 20-25%. on milrinone 9. SSS s/p leadless PPM implantation (Medtronic Micra). Device does not store history rhythm data. 10. Hypertension; low end. requiring pressor support 11. H/o DAIJA requiringHD; renal function improvedand HD catheter removed 12. 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 HIV 14. Substance abuse; UDS + cocaine at [facility] 15. Noncompliance 16. Tobaccoism Recommendations Continue Amiodarone for now. Monitor EKG, QTc Ongoing diuresis Continue milrinone for now. Will discontinue if further ventricular arrhythmias noted Secondary prevention measures as able. Plavix, statin therapy. Hold lisinopril, Toprol with hypotension Lung optimization, vent management as per pulm Supportive care Overall poor prognosis. Consideration of an ICD based on the patient's clinical course. Justicifation of Admission Dx: Justifications for Admission: Justification of Admission Dx: Yes YAMILE HDEZ MD 03/29/20 1844: CARDIO Progress Notes Assessment Assessment Patient seen and evaluated. I agree with our nurse practitioners assessment and plan. OOH, witness cardiac arrest; recurrent [place], [place] arrest 07/21/20. On Amiodarone gtt. [facility] with patent LCx stent. No lesions needing intervention. Further VT yesterday evening. S/p Lidocaine . Back on amiodarone. Mild troponin elevation; trop highest 0.3 s/p resuscitation. EKG with LBBB H/o Vfib OOH arrest; probable ischemic in nature, antiarrhythmics discontinued in past due to QTc prolongation. QTC 546 03/28 Acute respiratory failure secondary to above; extubated, but reintubated following cardiac arrest due to [place], [place] 07/21/20. CAD s/p PCI/BMS to the LCx 12/11/19. ICM; LVEF 20-25%. on milrinone SSS s/p leadless PPM implantation (Medtronic Micra). Device does not store history rhythm data. Hypotension. requiring pressor support HIV Substance abuse; UDS + cocaine at [facility] Noncompliance GREGORY REYNA APRN Mar 29, 2020 10:32 YAMILE HDEZ MD Mar 29, 2020 18:44
--- NOTE | 2020-03-29 10:59 | PDOC ---
PULMONARY PROGRESS NOTES DATE: 03/29/20 TIME: 10:57 Subjective Pt. is on Fi02 40% AC mode extubated 03/26, re-intubated for 03/26--V-Tac Arrest now on primacor and amio gtt S/P cardiac cath 03/27/20-- clean Vitals Vital Signs Date Time Temp Pulse Resp B/P (MAP) Pulse Ox O2 Delivery O2 Flow Rate FiO2 03/29/20 10:00 102 24 97/41 (59) 100 Ventilator 03/29/20 07:00 99.1 99.1 Comments exam done via tele med Intubated/sedated Extremities: No Edema Labs Laboratory Tests Test 03/28/20 05:15 03/28/20 07:25 03/29/20 05:00 03/29/20 08:00 White Blood Count 7.0 x10^3/uL (4.0-11.0) 7.1 x10^3/uL (4.0-11.0) Red Blood Count 2.98 x10^6/uL (4.30-5.70) 2.90 x10^6/uL (4.30-5.70) Hemoglobin 7.5 g/dL (13.0-17.5) 7.2 g/dL (13.0-17.5) Hematocrit 23.1 % (39.0-53.0) 22.3 % (39.0-53.0) Mean Corpuscular Volume 78 fL (79-100) 77 fL (79-100) Mean Corpuscular Hemoglobin 25 pg (25-35) 25 pg (25-35) Mean Corpuscular Hemoglobin Concent 32 g/dL (31-37) 32 g/dL (31-37) Red Cell Distribution Width 18.0 % (11.5-14.5) 18.0 % (11.5-14.5) Platelet Count 327 x10^3/uL (140-400) 309 x10^3/uL (140-400) Neutrophils (%) (Auto) 60 % (31-73) 61 % (31-73) Lymphocytes (%) (Auto) 29 % (24-48) 30 % (24-48) Monocytes (%) (Auto) 7 % (0-9) 6 % (0-9) Eosinophils (%) (Auto) 3 % (0-3) 2 % (0-3) Basophils (%) (Auto) 1 % (0-3) 1 % (0-3) Neutrophils # (Auto) 4.2 x10^3/uL (1.8-7.7) 4.3 x10^3/uL (1.8-7.7) Lymphocytes # (Auto) 2.1 x10^3/uL (1.0-4.8) 2.1 x10^3/uL (1.0-4.8) Monocytes # (Auto) 0.5 x10^3/uL (0.0-1.1) 0.4 x10^3/uL (0.0-1.1) Eosinophils # (Auto) 0.2 x10^3/uL (0.0-0.7) 0.2 x10^3/uL (0.0-0.7) Basophils # (Auto) 0.1 x10^3/uL (0.0-0.2) 0.1 x10^3/uL (0.0-0.2) Sodium Level 143 mmol/L (136-145) 142 mmol/L (136-145) Potassium Level 3.1 mmol/L (3.5-5.1) 3.5 mmol/L (3.5-5.1) Chloride Level 110 mmol/L (98-107) 111 mmol/L (98-107) Carbon Dioxide Level 26 mmol/L (21-32) 24 mmol/L (21-32) Anion Gap 7 (6-14) 7 (6-14) Blood Urea Nitrogen 6 mg/dL (8-26) 8 mg/dL (8-26) Creatinine 1.0 mg/dL (0.7-1.3) 1.1 mg/dL (0.7-1.3) Estimated GFR (Cockcroft-Gault) 94.9 85.1 Glucose Level 117 mg/dL (70-99) 96 mg/dL (70-99) Calcium Level 8.3 mg/dL (8.5-10.1) 8.5 mg/dL (8.5-10.1) Magnesium Level 2.0 mg/dL (1.8-2.4) 2.0 mg/dL (1.8-2.4) O2 Saturation 94 % (92-99) 96 % (92-99) Arterial Blood pH 7.45 (7.35-7.45) 7.43 (7.35-7.45) Arterial Blood pCO2 at Patient Temp 36 mmHg (35-46) 30 mmHg (35-46) Arterial Blood pO2 at Patient Temp 72 mmHg (75-108) 89 mmHg (75-108) Arterial Blood HCO3 25 mmol/L (21-28) 20 mmol/L (21-28) Arterial Blood Base Excess 1 mmol/L (-3-3) -4 mmol/L (-3-3) FiO2 40 40%+5 Laboratory Tests Test 03/29/20 05:00 03/29/20 08:00 White Blood Count 7.1 x10^3/uL (4.0-11.0) Red Blood Count 2.90 x10^6/uL (4.30-5.70) Hemoglobin 7.2 g/dL (13.0-17.5) Hematocrit 22.3 % (39.0-53.0) Mean Corpuscular Volume 77 fL (79-100) Mean Corpuscular Hemoglobin 25 pg (25-35) Mean Corpuscular Hemoglobin Concent 32 g/dL (31-37) Red Cell Distribution Width 18.0 % (11.5-14.5) Platelet Count 309 x10^3/uL (140-400) Neutrophils (%) (Auto) 61 % (31-73) Lymphocytes (%) (Auto) 30 % (24-48) Monocytes (%) (Auto) 6 % (0-9) Eosinophils (%) (Auto) 2 % (0-3) Basophils (%) (Auto) 1 % (0-3) Neutrophils # (Auto) 4.3 x10^3/uL (1.8-7.7) Lymphocytes # (Auto) 2.1 x10^3/uL (1.0-4.8) Monocytes # (Auto) 0.4 x10^3/uL (0.0-1.1) Eosinophils # (Auto) 0.2 x10^3/uL (0.0-0.7) Basophils # (Auto) 0.1 x10^3/uL (0.0-0.2) Sodium Level 142 mmol/L (136-145) Potassium Level 3.5 mmol/L (3.5-5.1) Chloride Level 111 mmol/L (98-107) Carbon Dioxide Level 24 mmol/L (21-32) Anion Gap 7 (6-14) Blood Urea Nitrogen 8 mg/dL (8-26) Creatinine 1.1 mg/dL (0.7-1.3) Estimated GFR (Cockcroft-Gault) 85.1 Glucose Level 96 mg/dL (70-99) Calcium Level 8.5 mg/dL (8.5-10.1) Magnesium Level 2.0 mg/dL (1.8-2.4) O2 Saturation 96 % (92-99) Arterial Blood pH 7.43 (7.35-7.45) Arterial Blood pCO2 at Patient Temp 30 mmHg (35-46) Arterial Blood pO2 at Patient Temp 89 mmHg (75-108) Arterial Blood HCO3 20 mmol/L (21-28) Arterial Blood Base Excess -4 mmol/L (-3-3) FiO2 40%+5 Medications Active Scripts Medications Dose Route/Sig Max Daily Dose Days Date Category Furosemide 40 Mg Tablet 40 Mg PO DAILY 02/02/20 Rx Tramadol Hcl 50 Mg Tablet 50 Mg PO PRN Q6HRS PRN 6 02/02/20 Rx Metoprolol Succinate ( Xl ) (Metoprolol Succinate) 25 Mg Tab.er.24h 12.5 Mg PO DAILY 02/02/20 Rx Clopidogrel (Clopidogrel Bisulfate) 75 Mg Tablet 75 Mg PO DAILYWBKFT 02/02/20 Rx Lisinopril 10 Mg Tablet 1 Tab PO DAILY 02/02/20 Rx Atorvastatin Calcium 80 Mg Tablet 80 Mg PO QHS 02/02/20 Rx Klor-Con M20 (Potassium Chloride) 20 Meq Tab.er.prt 20 Meq PO TID 01/31/20 Reported Pantoprazole Sodium (Pantoprazole Sodium) 40 Mg Tablet.dr 40 Mg PO BID 01/31/20 Reported Duoneb 0.5-3(2.5) Mg/3 Ml (Albuterol/Ipratropium) 3 Ml Ampul.neb 3 Ml NEB PRN Q6HRS PRN 01/31/20 Reported Acetaminophen 325 Mg Tablet 1 Tab PO PRN Q6HRS PRN 24 01/31/20 Reported Triumeq Tablet (Abacavir/Dolutegravir/Lamivudi) 1 Each Tablet 1 Tab PO DAILY 30 01/31/20 Reported Gabapentin (Gabapentin) 300 Mg Capsule 100 Mg PO TID 01/31/20 Reported Children's Aspirin (Aspirin) 81 Mg Tab.chew 1 Tab PO DAILY 30 01/31/20 Reported Comments CXR 03/26/20 IMPRESSION: Decrease in diffuse interstitial infiltrate. Impression . IMPRESSION: 1. Acute hypoxemic respiratory failure secondary to teb-dq-wjantkva cardiopulmonary arrest. extubated 03/26, re-intubated for V-Tac Arrest 2. History of ventricular fibrillation with previous rev-dv-dygnwjhu cardiac arrest. 3. History of coronary artery disease, status post percutaneous coronary intervention to the circumflex. 4. History of gastrointestinal bleed. 5. Chronic systolic heart failure. 6. Ischemic cardiomyopathy, ejection fraction 15%. 7. Status post pacemaker implantation. 8. Hypertension. 9. Hypokalemia. 10. Previous kidney injury requiring hemodialysis. 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 12. Human immunodeficiency virus. 13. Polysubstance use. Plan . Continue current AC support, will need to d/w cardiology /family reg correction plans. will not extubate till AICD S/P cath 03/27/20 was clean AICD vs. life vest-- per cardiology Continue empiric antibiotics per infectious disease--zosyn and po vanco Follow cultures, respiratory culture growing out gram-positive cocci Follow other cardiology recommendations-- on amio/primacor gtt Hypotension per cardiology Follow GI recs PT/OT//ST DVT/GI prophylaxis Discussed with RN and RT NERISSA AGUILAR MD Mar 29, 2020 10:59
--- NOTE | 2020-03-29 11:31 | EKG ---
[facility] [address] [place] [address] Test Date: 2020-03-29 Test Time: 11:29:02 Pat Name: DENIA RODRIGUES Department: Room: 109 1 Gender: M Drilling Inspector: TY : 1965 Requested By: GREGORY REYNA Order Number: [id number] Reading MD: Measurements Intervals [place] Rate: 95 P: -86 TX: 140 QRS: 39 QRSD: 156 T: 142 QT: 408 QTc: 516 Interpretive Statements SINUS RHYTHM COMPLEX(ES) WITH ABERRANT INTRAVENTRICULAR CONDUCTION VENTRICULAR PREMATURE COMPLEX(ES) LEFT BUNDLE BRANCH BLOCK ABNORMAL ECG RI6.02 Compared to ECG 03/28/2020 10:46:24 No significant changes
--- NOTE | 2020-03-29 11:47 | PDOC ---
Date of Service: DATE: 03/29/20 TIME: 11:44 Objective: Objective: D/w nurse - currently 700cc in OG canister, no stools, difficult to sedate. Vital Signs: Vital Signs Date Time Temp Pulse Resp B/P (MAP) Pulse Ox O2 Delivery O2 Flow Rate FiO2 03/29/20 11:30 99 Ventilator 03/29/20 10:00 102 24 97/41 (59) 03/29/20 07:00 99.1 99.1 Labs: Laboratory Tests Test 03/29/20 05:00 03/29/20 08:00 White Blood Count 7.1 x10^3/uL Red Blood Count 2.90 x10^6/uL Hemoglobin 7.2 g/dL Hematocrit 22.3 % Mean Corpuscular Volume 77 fL Mean Corpuscular Hemoglobin 25 pg Mean Corpuscular Hemoglobin Concent 32 g/dL Red Cell Distribution Width 18.0 % Platelet Count 309 x10^3/uL Neutrophils (%) (Auto) 61 % Lymphocytes (%) (Auto) 30 % Monocytes (%) (Auto) 6 % Eosinophils (%) (Auto) 2 % Basophils (%) (Auto) 1 % Neutrophils # (Auto) 4.3 x10^3/uL Lymphocytes # (Auto) 2.1 x10^3/uL Monocytes # (Auto) 0.4 x10^3/uL Eosinophils # (Auto) 0.2 x10^3/uL Basophils # (Auto) 0.1 x10^3/uL Sodium Level 142 mmol/L Potassium Level 3.5 mmol/L Chloride Level 111 mmol/L Carbon Dioxide Level 24 mmol/L Anion Gap 7 Blood Urea Nitrogen 8 mg/dL Creatinine 1.1 mg/dL Estimated GFR (Cockcroft-Gault) 85.1 Glucose Level 96 mg/dL Calcium Level 8.5 mg/dL Magnesium Level 2.0 mg/dL O2 Saturation 96 % Arterial Blood pH 7.43 Arterial Blood pCO2 at Patient Temp 30 mmHg Arterial Blood pO2 at Patient Temp 89 mmHg Arterial Blood HCO3 20 mmol/L Arterial Blood Base Excess -4 mmol/L FiO2 40%+5 Imaging: KUB 03/28 Impression: 1. Nonobstructive nonspecific bowel gas pattern. 2. Calcification in the right lower quadrant which is nonspecific but could reflect a small appendicolith. If there is clinical concern for appendicitis, consider further evaluation with CT of the abdomen and pelvis. PE: GEN: NAD LUNGS: vent/diminished HEART: mildly tachycardic ABD: quiet, dark brown output in OG canister NEURO/PSYCH: sedated but eyes open and moving head and arms A/P: S/p arrests, CAD on Plavix, CHF, resp failure Anemia, h/o GI bleeding COVID negative -- Continue PPI, observe, transfuse as needed. Justicifation of Admission Dx: Justifications for Admission: Justification of Admission Dx: Yes YNES CLEARY Mar 29, 2020 11:47
[2020-03-29] MEDS ORDERED: LIDOCAINE 2% 100 MG/5 ML SYRINGE. ONE (12:00)
[2020-03-29] MEDS ORDERED: EPINEPHrine SYRINGE 1 MG/10 ML SYRINGE ONE (12:00)
[2020-03-29] MEDS ORDERED: AMIODARONE HCL 200 MG TABLET. PO ONE (13:45)
[2020-03-29] MEDS: IV NORMAL SALINE 1000ML BAG 1,000 ML IV SCH (15:14)
--- NOTE | 2020-03-29 16:27 | NUR ---
SS following up with discharge planning. SS reviewed pt chart and discussed with pt RN. Pt is currently on the vent at 40%. COVID19 negative and HIV positive. Pt on Amio and Milrinone drip. Pt on IV Zosyn. Considering AICD placement. Not stable. SS will continue to follow for discharge planning.
[2020-03-29] MEDS: ATORVASTATIN CALCIUM 40 MG TABLET. PO SCH (20:44)
[2020-03-30] VITALS (25 sets, daily range): BP systolic 79–137; BP diastolic 39–97
[2020-03-30] MEDS: PIPERACILLIN/TAZOBACTAM 3.375 GM in IV NORMAL SALINE 50ML 50 ML IV SCH ×4 (00:38→17:27)
[2020-03-30] MEDS: DEXMEDETOMIDINE 400 MCG in IV NORMAL SALINE 100ML 96 ML IV PRN ×2 (01:32→09:36)
[2020-03-30] MEDS: MIDAZOLAM 100mg/100ml NS BAG 100 ML IV PRN ×3 (04:05→17:27)
[2020-03-30 06:16] LABS: BASO % 1 % (0-3); EOS # 0.2 x10^3/uL (0.0-0.7); EOS % 2 % (0-3); HEMATOCRIT 22.7 % (39.0-53.0); HEMOGLOBIN 7.2 g/dL (13.0-17.5); LYMPH # 2.1 x10^3/uL (1.0-4.8); LYMPH % 30 % (24-48); MEAN CORPUSCULAR HEMOGLOBIN 25 pg (25-35); MEAN CORPUSCULAR HGB CONC 32 g/dL (31-37); MEAN CORPUSCULAR VOLUME 78 fL (79-100); MONO # 0.5 x10^3/uL (0.0-1.1); MONO % 7 % (0-9); NEUT # 4.2 x10^3/uL (1.8-7.7); NEUT % 60 % (31-73); PLATELET COUNT 312 x10^3/uL (140-400); RED CELL DISTRIBUTION WIDTH 18.2 % (11.5-14.5)
[2020-03-30 06:19] LABS: CALCIUM 8.5 mg/dL (8.5-10.1); GFR 94.9; POTASSIUM 3.6 mmol/L (3.5-5.1)
--- NOTE | 2020-03-30 08:00 | PDOC ---
Infectious Disease Note Subjective Subjective Patient intubated/sedated cont to have VT off and on ROS ROS no n/v/d/ Vital Sign Vital Signs Vital Signs Date Time Temp Pulse Resp B/P (MAP) Pulse Ox O2 Delivery O2 Flow Rate FiO2 03/30/20 07:00 78 20 117/53 (74) 99 Ventilator 03/30/20 04:00 99.3 99.3 Physical Exam PHYSICAL EXAM GENERAL: Intubated, sedated. HEENT: Conjunctival suffusion. Pupils equal, reactive. ETT OGT present. NECK: Supple. LUNGS: Clear anteriorly. HEART: S1, S2, tachycardia. ABDOMEN: Obese, mildly distended. Bowel sounds present. EXTREMITIES: No edema or cyanosis. DERMATOLOGIC: Warm and dry. No generalized rash. NEUROLOGIC: Unable to assess. Labs Lab Laboratory Tests Test 03/30/20 05:55 White Blood Count 7.0 x10^3/uL (4.0-11.0) Red Blood Count 2.90 x10^6/uL (4.30-5.70) Hemoglobin 7.2 g/dL (13.0-17.5) Hematocrit 22.7 % (39.0-53.0) Mean Corpuscular Volume 78 fL (79-100) Mean Corpuscular Hemoglobin 25 pg (25-35) Mean Corpuscular Hemoglobin Concent 32 g/dL (31-37) Red Cell Distribution Width 18.2 % (11.5-14.5) Platelet Count 312 x10^3/uL (140-400) Neutrophils (%) (Auto) 60 % (31-73) Lymphocytes (%) (Auto) 30 % (24-48) Monocytes (%) (Auto) 7 % (0-9) Eosinophils (%) (Auto) 2 % (0-3) Basophils (%) (Auto) 1 % (0-3) Neutrophils # (Auto) 4.2 x10^3/uL (1.8-7.7) Lymphocytes # (Auto) 2.1 x10^3/uL (1.0-4.8) Monocytes # (Auto) 0.5 x10^3/uL (0.0-1.1) Eosinophils # (Auto) 0.2 x10^3/uL (0.0-0.7) Basophils # (Auto) 0.0 x10^3/uL (0.0-0.2) Sodium Level 145 mmol/L (136-145) Potassium Level 3.6 mmol/L (3.5-5.1) Chloride Level 111 mmol/L (98-107) Carbon Dioxide Level 23 mmol/L (21-32) Anion Gap 11 (6-14) Blood Urea Nitrogen 7 mg/dL (8-26) Creatinine 1.0 mg/dL (0.7-1.3) Estimated GFR (Cockcroft-Gault) 94.9 Glucose Level 88 mg/dL (70-99) Calcium Level 8.5 mg/dL (8.5-10.1) Magnesium Level 2.0 mg/dL (1.8-2.4) Micro Microbiology 03/21/20 Gram Stain Evaluation - Final, Complete 03/21/20 Respiratory Culture - Final, Complete 03/20/20 Blood Culture - Final, Complete NO GROWTH AFTER 5 DAYS Objective Assessment 1. Fever improved 2. Witnessed cardiac arrest, status post defibrillation. 3. Leukocytosis and lactic acidosis. 4. Human immunodeficiency virus, CD4 was 403 on 01/16 viral load less than 20 on 01/23on Triumeq. 5. Acute hypoxic respiratory failure 6. History of ventricular tachycardia, Coronary artery disease, status post PCI. 7. Status post pacemaker for bradycardia 12/27 at [place]. 8. History of acute kidney injury, on hemodialysis in the past. 9. 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 10. Substance dependence. UDS positive for cocaine at outside hospital. 11. Hypertension/hyperlipidemia 12. Hypokalemia/hypomagnesemia. 13. H/O Chronic systolic congestive heart failure. 14. History of rectal abscess. 15. History of Necrotizing Pneumonia with Klebsiella at [facility] November 2019 Plan Plan of Care Continue Zosyn, Continue p.o. vancomycin for prophylaxis with history of recurrent C. difficile Continue Triumeq Follow up labs and cultures. Continue supportive care Discussed with nursing. MARLA NICOLE MD Mar 30, 2020 08:00
[2020-03-30 08:40] LABS: BASE EXCESS ABG -4 mmol/L (-3-3); HCO3 ABG 20 mmol/L (21-28); PCO2 ABG 32 mmHg (35-46); PO2 ABG 86 mmHg (75-108); SAT O2 ABG 96 % (92-99)
[2020-03-30 08:52] LABS: FIO2 ABG 40%
[2020-03-30] MEDS: ELECTROLYTE (ICU) PROTOCOL. MC SCH (09:00)
[2020-03-30] MEDS: MILRINONE 20MG/100ML PREMIX 100 ML IV PRN ×2 (09:19→20:55)
--- NOTE | 2020-03-30 09:29 | EKG ---
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
[2020-03-30] MEDS: CLOPIDOGREL BISULFATE 75 MG TABLET PO SCH (09:34)
[2020-03-30] MEDS: VANCOMYCIN 125 MG/2.5 ML ORAL SOLUTION. PO SCH ×2 (09:34→22:07)
[2020-03-30] MEDS: PANTOPRAZOLE IV PUSH 40 MG VIAL. IVP SCH (09:34)
[2020-03-30] MEDS: FUROSEMIDE 40 MG/4 ML VIAL. IVP SCH (09:35)
[2020-03-30] MEDS: AMIODARONE HCL 200 MG TABLET. PO SCH (09:37)
--- NOTE | 2020-03-30 09:37 | PDOC ---
PULMONARY PROGRESS NOTES DATE: 03/30/20 TIME: 09:35 Subjective Pt. is on Fi02 40% AC mode extubated 03/26, re-intubated for 03/26--V-Tac Arrest on primacor S/P cardiac cath 03/27/20-- clean Vitals Vital Signs Date Time Temp Pulse Resp B/P (MAP) Pulse Ox O2 Delivery O2 Flow Rate FiO2 03/30/20 09:00 76 20 102/50 (67) 79 Ventilator 03/30/20 08:00 99.1 99.1 Comments Intubated/sedated General: Alert Lungs: Clear Cardiovascular: S1, S2 Extremities: No Edema Skin: Warm, Dry Labs Laboratory Tests Test 03/29/20 05:00 03/29/20 08:00 03/30/20 05:55 03/30/20 08:40 White Blood Count 7.1 x10^3/uL (4.0-11.0) 7.0 x10^3/uL (4.0-11.0) Red Blood Count 2.90 x10^6/uL (4.30-5.70) 2.90 x10^6/uL (4.30-5.70) Hemoglobin 7.2 g/dL (13.0-17.5) 7.2 g/dL (13.0-17.5) Hematocrit 22.3 % (39.0-53.0) 22.7 % (39.0-53.0) Mean Corpuscular Volume 77 fL (79-100) 78 fL (79-100) Mean Corpuscular Hemoglobin 25 pg (25-35) 25 pg (25-35) Mean Corpuscular Hemoglobin Concent 32 g/dL (31-37) 32 g/dL (31-37) Red Cell Distribution Width 18.0 % (11.5-14.5) 18.2 % (11.5-14.5) Platelet Count 309 x10^3/uL (140-400) 312 x10^3/uL (140-400) Neutrophils (%) (Auto) 61 % (31-73) 60 % (31-73) Lymphocytes (%) (Auto) 30 % (24-48) 30 % (24-48) Monocytes (%) (Auto) 6 % (0-9) 7 % (0-9) Eosinophils (%) (Auto) 2 % (0-3) 2 % (0-3) Basophils (%) (Auto) 1 % (0-3) 1 % (0-3) Neutrophils # (Auto) 4.3 x10^3/uL (1.8-7.7) 4.2 x10^3/uL (1.8-7.7) Lymphocytes # (Auto) 2.1 x10^3/uL (1.0-4.8) 2.1 x10^3/uL (1.0-4.8) Monocytes # (Auto) 0.4 x10^3/uL (0.0-1.1) 0.5 x10^3/uL (0.0-1.1) Eosinophils # (Auto) 0.2 x10^3/uL (0.0-0.7) 0.2 x10^3/uL (0.0-0.7) Basophils # (Auto) 0.1 x10^3/uL (0.0-0.2) 0.0 x10^3/uL (0.0-0.2) Sodium Level 142 mmol/L (136-145) 145 mmol/L (136-145) Potassium Level 3.5 mmol/L (3.5-5.1) 3.6 mmol/L (3.5-5.1) Chloride Level 111 mmol/L (98-107) 111 mmol/L (98-107) Carbon Dioxide Level 24 mmol/L (21-32) 23 mmol/L (21-32) Anion Gap 7 (6-14) 11 (6-14) Blood Urea Nitrogen 8 mg/dL (8-26) 7 mg/dL (8-26) Creatinine 1.1 mg/dL (0.7-1.3) 1.0 mg/dL (0.7-1.3) Estimated GFR (Cockcroft-Gault) 85.1 94.9 Glucose Level 96 mg/dL (70-99) 88 mg/dL (70-99) Calcium Level 8.5 mg/dL (8.5-10.1) 8.5 mg/dL (8.5-10.1) Magnesium Level 2.0 mg/dL (1.8-2.4) 2.0 mg/dL (1.8-2.4) O2 Saturation 96 % (92-99) 96 % (92-99) Arterial Blood pH 7.43 (7.35-7.45) 7.42 (7.35-7.45) Arterial Blood pCO2 at Patient Temp 30 mmHg (35-46) 32 mmHg (35-46) Arterial Blood pO2 at Patient Temp 89 mmHg (75-108) 86 mmHg (75-108) Arterial Blood HCO3 20 mmol/L (21-28) 20 mmol/L (21-28) Arterial Blood Base Excess -4 mmol/L (-3-3) -4 mmol/L (-3-3) FiO2 40%+5 40% Laboratory Tests Test 03/30/20 05:55 03/30/20 08:40 White Blood Count 7.0 x10^3/uL (4.0-11.0) Red Blood Count 2.90 x10^6/uL (4.30-5.70) Hemoglobin 7.2 g/dL (13.0-17.5) Hematocrit 22.7 % (39.0-53.0) Mean Corpuscular Volume 78 fL (79-100) Mean Corpuscular Hemoglobin 25 pg (25-35) Mean Corpuscular Hemoglobin Concent 32 g/dL (31-37) Red Cell Distribution Width 18.2 % (11.5-14.5) Platelet Count 312 x10^3/uL (140-400) Neutrophils (%) (Auto) 60 % (31-73) Lymphocytes (%) (Auto) 30 % (24-48) Monocytes (%) (Auto) 7 % (0-9) Eosinophils (%) (Auto) 2 % (0-3) Basophils (%) (Auto) 1 % (0-3) Neutrophils # (Auto) 4.2 x10^3/uL (1.8-7.7) Lymphocytes # (Auto) 2.1 x10^3/uL (1.0-4.8) Monocytes # (Auto) 0.5 x10^3/uL (0.0-1.1) Eosinophils # (Auto) 0.2 x10^3/uL (0.0-0.7) Basophils # (Auto) 0.0 x10^3/uL (0.0-0.2) Sodium Level 145 mmol/L (136-145) Potassium Level 3.6 mmol/L (3.5-5.1) Chloride Level 111 mmol/L (98-107) Carbon Dioxide Level 23 mmol/L (21-32) Anion Gap 11 (6-14) Blood Urea Nitrogen 7 mg/dL (8-26) Creatinine 1.0 mg/dL (0.7-1.3) Estimated GFR (Cockcroft-Gault) 94.9 Glucose Level 88 mg/dL (70-99) Calcium Level 8.5 mg/dL (8.5-10.1) Magnesium Level 2.0 mg/dL (1.8-2.4) O2 Saturation 96 % (92-99) Arterial Blood pH 7.42 (7.35-7.45) Arterial Blood pCO2 at Patient Temp 32 mmHg (35-46) Arterial Blood pO2 at Patient Temp 86 mmHg (75-108) Arterial Blood HCO3 20 mmol/L (21-28) Arterial Blood Base Excess -4 mmol/L (-3-3) FiO2 40% Medications Active Scripts Medications Dose Route/Sig Max Daily Dose Days Date Category Furosemide 40 Mg Tablet 40 Mg PO DAILY 02/02/20 Rx Tramadol Hcl 50 Mg Tablet 50 Mg PO PRN Q6HRS PRN 6 02/02/20 Rx Metoprolol Succinate ( Xl ) (Metoprolol Succinate) 25 Mg Tab.er.24h 12.5 Mg PO DAILY 02/02/20 Rx Clopidogrel (Clopidogrel Bisulfate) 75 Mg Tablet 75 Mg PO DAILYWBKFT 02/02/20 Rx Lisinopril 10 Mg Tablet 1 Tab PO DAILY 02/02/20 Rx Atorvastatin Calcium 80 Mg Tablet 80 Mg PO QHS 02/02/20 Rx Klor-Con M20 (Potassium Chloride) 20 Meq Tab.er.prt 20 Meq PO TID 01/31/20 Reported Pantoprazole Sodium (Pantoprazole Sodium) 40 Mg Tablet.dr 40 Mg PO BID 01/31/20 Reported Duoneb 0.5-3(2.5) Mg/3 Ml (Albuterol/Ipratropium) 3 Ml Ampul.neb 3 Ml NEB PRN Q6HRS PRN 01/31/20 Reported Acetaminophen 325 Mg Tablet 1 Tab PO PRN Q6HRS PRN 24 01/31/20 Reported Triumeq Tablet (Abacavir/Dolutegravir/Lamivudi) 1 Each Tablet 1 Tab PO DAILY 30 01/31/20 Reported Gabapentin (Gabapentin) 300 Mg Capsule 100 Mg PO TID 01/31/20 Reported Children's Aspirin (Aspirin) 81 Mg Tab.chew 1 Tab PO DAILY 30 01/31/20 Reported Comments CXR 03/26/20 IMPRESSION: Decrease in diffuse interstitial infiltrate. Impression . IMPRESSION: 1. Acute hypoxemic respiratory failure secondary to ukg-[id number]-kuwyfjns cardiopulmonary arrest. extubated 03/26, re-intubated for V-Tac Arrest 2. History of ventricular fibrillation with previous cfx-kd-dwlpzjac cardiac arrest. 3. History of coronary artery disease, status post percutaneous coronary intervention to the circumflex. 4. History of gastrointestinal bleed. 5. Chronic systolic heart failure. 6. Ischemic cardiomyopathy, ejection fraction 15%. 7. Status post pacemaker implantation. 8. Hypertension. 9. Hypokalemia. 10. Previous kidney injury requiring hemodialysis. 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 12. Human immunodeficiency virus. 13. Polysubstance use. Plan . Continue current AC support, will need to d/w cardiology /family reg senior care plans. will not extubate till AICD S/P cath 03/27/20 was clean AICD vs. life vest-- per cardiology Continue empiric antibiotics per infectious disease--zosyn and po vanco Follow cultures, respiratory culture growing out gram-positive cocci Follow other cardiology recommendations-- primacor gtt Hypotension per cardiology Follow GI recs PT/OT//ST DVT/GI prophylaxis Discussed with RN and RT Critical Care Time 0900-0930AM NERISSA AGUILAR MD Mar 30, 2020 09:37
[2020-03-30] MEDS: DOLUTEGRAVIR PO SCH (09:38)
[2020-03-30] MEDS: ABACAVIR PO SCH (09:38)
[2020-03-30] MEDS: LAMIVUDINE PO SCH (09:38)
[2020-03-30] MEDS: IV NORMAL SALINE 1000ML BAG 1,000 ML IV SCH (09:39)
[2020-03-30] MEDS ORDERED: MAGNESIUM SULFATE 2GM 50 ML IV ONE (09:45)
[2020-03-30] MEDS ORDERED: POTASSIUM BICARB 20 MEQ EFFERVESCENT TABLET. PEG ONE (09:45)
--- NOTE | 2020-03-30 09:58 | PDOC ---
Date of Service: DATE: 03/30/20 TIME: 09:55 Objective: Objective: D/w nurse - 550cc from OG in last 24 hrs - tube feeds? No bleeding. Vital Signs: Vital Signs Date Time Temp Pulse Resp B/P (MAP) Pulse Ox O2 Delivery O2 Flow Rate FiO2 03/30/20 09:37 76 102/50 03/30/20 09:00 20 79 Ventilator 03/30/20 08:00 99.1 99.1 Labs: Laboratory Tests Test 03/30/20 05:55 03/30/20 08:40 White Blood Count 7.0 x10^3/uL Red Blood Count 2.90 x10^6/uL Hemoglobin 7.2 g/dL Hematocrit 22.7 % Mean Corpuscular Volume 78 fL Mean Corpuscular Hemoglobin 25 pg Mean Corpuscular Hemoglobin Concent 32 g/dL Red Cell Distribution Width 18.2 % Platelet Count 312 x10^3/uL Neutrophils (%) (Auto) 60 % Lymphocytes (%) (Auto) 30 % Monocytes (%) (Auto) 7 % Eosinophils (%) (Auto) 2 % Basophils (%) (Auto) 1 % Neutrophils # (Auto) 4.2 x10^3/uL Lymphocytes # (Auto) 2.1 x10^3/uL Monocytes # (Auto) 0.5 x10^3/uL Eosinophils # (Auto) 0.2 x10^3/uL Basophils # (Auto) 0.0 x10^3/uL Sodium Level 145 mmol/L Potassium Level 3.6 mmol/L Chloride Level 111 mmol/L Carbon Dioxide Level 23 mmol/L Anion Gap 11 Blood Urea Nitrogen 7 mg/dL Creatinine 1.0 mg/dL Estimated GFR (Cockcroft-Gault) 94.9 Glucose Level 88 mg/dL Calcium Level 8.5 mg/dL Magnesium Level 2.0 mg/dL O2 Saturation 96 % Arterial Blood pH 7.42 Arterial Blood pCO2 at Patient Temp 32 mmHg Arterial Blood pO2 at Patient Temp 86 mmHg Arterial Blood HCO3 20 mmol/L Arterial Blood Base Excess -4 mmol/L FiO2 40% PE: GEN: intubated LUNGS: vent HEART: RRR ABD: soft, BS+, OG canister w/ ~1000cc - more brownish (less dark) today NEURO/PSYCH: sedated A/P: S/p arrests, CAD, CHF, resp failure Anemia (stable - Hgb 7.2), h/o GI bleeding COVID negative +cocaine, non-compliance -- Will d/w Dr. Barrera. Justicifation of Admission Dx: Justifications for Admission: Justification of Admission Dx: Yes YNES CLEARY Mar 30, 2020 09:58
--- NOTE | 2020-03-30 10:22 | PDOC ---
URSZULA MONTE PHYSICAL THERAPY TECHNICIAN 03/30/20 1022: CARDIO Progress Notes Date and Time Date of Service 03/30/2020 Time of Evaluation 0930 Subjective Subjective: Other (sedated, intubated ) Vitals Vitals Vital Signs Date Time Temp Pulse Resp B/P (MAP) Pulse Ox O2 Delivery O2 Flow Rate FiO2 03/30/20 10:00 90 20 79/58 (65) 99 Ventilator 03/30/20 08:00 99.1 99.1 Weight Weight [ ] Input and Output Intake and Output Intake and Output 03/30/20 07:00 Intake Total 2407.43 ml Output Total 1890 ml Balance 517.43 ml Intake Oral 480 ml IV Total 1927.43 ml Output Urine Total 1340 ml Gastric Drainage Total 550 ml Laboratory Labs Laboratory Tests Test 03/30/20 05:55 03/30/20 08:40 White Blood Count 7.0 x10^3/uL (4.0-11.0) Red Blood Count 2.90 x10^6/uL (4.30-5.70) Hemoglobin 7.2 g/dL (13.0-17.5) Hematocrit 22.7 % (39.0-53.0) Mean Corpuscular Volume 78 fL (79-100) Mean Corpuscular Hemoglobin 25 pg (25-35) Mean Corpuscular Hemoglobin Concent 32 g/dL (31-37) Red Cell Distribution Width 18.2 % (11.5-14.5) Platelet Count 312 x10^3/uL (140-400) Neutrophils (%) (Auto) 60 % (31-73) Lymphocytes (%) (Auto) 30 % (24-48) Monocytes (%) (Auto) 7 % (0-9) Eosinophils (%) (Auto) 2 % (0-3) Basophils (%) (Auto) 1 % (0-3) Neutrophils # (Auto) 4.2 x10^3/uL (1.8-7.7) Lymphocytes # (Auto) 2.1 x10^3/uL (1.0-4.8) Monocytes # (Auto) 0.5 x10^3/uL (0.0-1.1) Eosinophils # (Auto) 0.2 x10^3/uL (0.0-0.7) Basophils # (Auto) 0.0 x10^3/uL (0.0-0.2) Sodium Level 145 mmol/L (136-145) Potassium Level 3.6 mmol/L (3.5-5.1) Chloride Level 111 mmol/L (98-107) Carbon Dioxide Level 23 mmol/L (21-32) Anion Gap 11 (6-14) Blood Urea Nitrogen 7 mg/dL (8-26) Creatinine 1.0 mg/dL (0.7-1.3) Estimated GFR (Cockcroft-Gault) 94.9 Glucose Level 88 mg/dL (70-99) Calcium Level 8.5 mg/dL (8.5-10.1) Magnesium Level 2.0 mg/dL (1.8-2.4) O2 Saturation 96 % (92-99) Arterial Blood pH 7.42 (7.35-7.45) Arterial Blood pCO2 at Patient Temp 32 mmHg (35-46) Arterial Blood pO2 at Patient Temp 86 mmHg (75-108) Arterial Blood HCO3 20 mmol/L (21-28) Arterial Blood Base Excess -4 mmol/L (-3-3) FiO2 40% Microbiology Micro Microbiology 03/26/20 Urine Culture - Final, Complete 03/21/20 Gram Stain Evaluation - Final, Complete 03/21/20 Respiratory Culture - Final, Complete 03/20/20 Blood Culture - Final, Complete NO GROWTH AFTER 5 DAYS Physical Exam HEENT: Neck Supple W Full Motion Chest: Symmetric LUNGS: Other (mechanical vent ) Heart: RRR (SR with frequent PVCs) Abdomen: Other (non-distended ) Extremities: No Edema Neurology: other (sedated ) Assessment Assessment 1. OOH, witness cardiac arrest; Rhythm upon arrival unknown, although shockable as he was defibrillated x1 with ROSC. remains intubated/vent 2. Mild troponin elevation; trop highest 0.3 s/p resuscitation. EKG with LBBB 3. Leukocytosis, fevers. ? sepsis Covid negative. 4. H/o Vfib OOH arrest; probable ischemic in nature, antiarrhythmics discontinued in past due to QTc prolongation of 600. EKG at [facility] with QTc 507, 528. 5. Acute respiratory failure secondary to above; s/p intubation 6. CAD s/p PCI/BMS to the LCx 12/11/19. Treated with ASA,Brilinta initially, which was held due to recurrent GIB requiring transfusions.Due to recent PCI/BMS, Plavix was resumed while at [facility]. ASA was discontinued.No further bleeding concerns. 7. Chronic systolic CHF; appears compensated 8. ICM; LVEF 15-20%. 9. SSS s/p leadless PPM implantation (Medtronic Micra). Device does not store history rhythm data. 10. Hypertension; low end. requiring pressor support 11. Hypokalemia, hypomagnesemia 12. H/o DAIJA requiringHD; renal function improvedand HD catheter removed 13. 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 HIV 15. Substance abuse; UDS + cocaine at [facility] 16. Noncompliance; s/o reports he has not been taken meds routinely 17. Coffee-ground gastric contents: noted via OG Recommendations DC. heparin. No ASA. May hold plavix if persistent coffee ground and Hgb trends down significantly. Discussed with RN Continue PPI Lasix therapy.Maintain K and Mg at least 4.0 and 2.0 respectively. Statin therapy Off pressors, May need to hold Milrinone with significant ventricular ectopies continue Continue Amiodarone, could add mexilitine but QTc is currently at 531. Recheck tomorrow. He needs AICD but given his significant noncompliance such as leaving AMA from a shelter acute facility, refusal to take meds and substance abuse this would then predispose to multiple AICD treatments from poor adherence to er tech cardiac therapy. His partner has indicated intention to proceed treatments such as AICD but also unclear in regards to neurological recovery. Will consult neurology and await input. Will discuss with primary post doctoral fellow. Will need EP referral as well Poor er tech prognosis especially with his noncompliance. Supportive care Justicifation of Admission Dx: Justifications for Admission: Justification of Admission Dx: Yes YAMILE HDEZ MD 03/30/20 1538: CARDIO Progress Notes Assessment Assessment Patient seen and evaluated. I agree with our nurse practitioners assessment and plan. Out of hospital witness cardiac arrest; Rhythm upon arrival unknown, although shockable as he was defibrillated x1 with ROSC. remains intubated/vent Mild troponin elevation; trop highest 0.3 s/p resuscitation. EKG with LBBB. Catheterization shows no hemodynamically significant coronary lesions. Leukocytosis, fevers. ? sepsis Covid negative. Acute respiratory failure secondary to above; s/p intubation CAD s/p PCI/BMS to the LCx 12/11/19. Treated with ASA,Brilinta initially, which was held due to recurrent GIB requiring transfusions.Due to recent PCI/BMS, Plavix was resumed while at [facility]. ASA was discontinued.No further bleeding concerns. ICM; LVEF 15-20%. SSS s/p leadless PPM implantation (Medtronic Micra). Device does not store history rhythm data. Hypotension; requiring pressor support GIB secondary to duodenal AVM bleed s/p clipping HIV Substance abuse; UDS + cocaine at [facility] Noncompliance; s/o reports he has not been taken meds routinely Discussion regarding AICD as above. Neurology evaluation requested. Monitoring QTc at this time. URSZULA MONTE APRN Mar 30, 2020 10:22 YAMILE HDEZ MD Mar 30, 2020 15:38
[2020-03-30] MEDS: fentaNYL HIGH DOSE PCA 55 ML IV PRN ×2 (10:49→22:38)
[2020-03-30] MEDS ORDERED: POTASSIUM BICARB 20 MEQ EFFERVESCENT TABLET. PO ONE (14:15)
--- NOTE | 2020-03-30 15:21 | PDOC ---
[employer] PROGRESS NOTE Date of Service DOS: DATE: 03/30/20 TIME: 15:18 Chief Complaint Chief Complaint VTE Prophylaxis Ordered VTE Prophylaxis Devices: Yes VTE Pharmacological Prophylaxi: Yes Assessment/Plan Assessment/Plan ASSESSMENT 1. out of hospital arrest , witness cardiac arrest; Defibrillation // AMI ruled out. 2. H/o Vfib probable ischemic in nature, antiarrhythmics discontinued in past due to QTc prolongation of 600. 3. Acute hypoxic respiratory failure requiring vent support 4. CAD s/p PCI/BMS to the LCx 12/11/19. Treated with ASA,Brilinta initially, which was held due to recurrent GIB requiring transfusions.Due to recent PCI/BMS, Plavix was resumed while at [facility]. ASA was d/c'd 5. Chronic systolic CHF 6. ischemic cardiomyopathy LVEF 20-25%. 7. SSS s/p leadless PPM 8. Hypertension; // requiring pressor support 9. Hypokalemia, hypomagnesemia 10. H/o DAIJA requiringHD; renal function improvedand HD catheter removed 11. 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 HIV 13. Substance abuse; UDS + cocaine , ALCOHOL, TOBACCO 14. Leukocytosis, fevers. ? sepsis Covid negative. 15. H/o Vfib OOH arrest; probable ischemic in nature, antiarrhythmics discontinued in past due to QTc prolongation of 600. EKG at [facility] with QTc 507, 528. 16. Human immunodeficiency virus, CD4 was 403 on 01/16 viral load less than 20 on 01/23on [facility]. 17. History of ventricular tachycardia, Coronary artery disease, status post PCI. 18. Status post pacemaker for bradycardia 12/27 at [place]. 19. hypernatremia, volume excess plan icu bed cardiology consult pulm consult Device interrogation Replace Mg, lytes Secondary prevention measures as able Resume Plavix. No ASA due to recent GIB Monitor LFTs Pressor support; wean as able Hold lisinopril, Toprol with hypotension Echo vent management GI CONSULT COVID 19 SCREEN vent support assist-control mode 50% and PEEP of 5 On heparin drip per cardiology hiv screen Echo to assess LV systolic function if COVID PCR negative Tube feeding on hold per GI, concern for ileus follow other GI recommendations vent support assist-control mode 40% and a PEEP of 5 Continue Zosyn,Zyvox Continue p.o. vancomycin for prophylaxis with history of recurrent C. difficile Continue Triumeq Follow up labs and cultures. 35% and a PEEP of 5 dec ns rate prognosis very guarded 39 MIN CC TIME History of Present Illness History of Present Illness Identification/Chief Complaint Chief Complaint admitted to icu , out of hospial arrest CAD s/p PCI/stent, cardiomyopathy, and prior cardiac arrest, presented secondary to cardiac arrest at home. Was at home with partner, Stevenson, watching television. Patient suddenly started breathing more deeply and began gasping for air. Eyes were wide and glassy. Was unresponsive. Partner was unable to feel pulse so he put him on the floor, called EMS and began chest compressions. Partner reports him drinking 3 malt beverages that evening while watching TV. No known sick contacts. EMS arrived within minutes. ROSC returned following one defibrillation. Although partner declined drug use, Narcan was administered en route due to pinpoint pupi ls. Limited effect from the Narcan. UDS was + for cocaine. IS COVID 19 PUI hx cardiac arrest on December 19, 2019. Patient was apparently found arrest in his car EMS noted in v-fib. ROSC was achieved following 1 defibrillation and 1 round of epi.//activated as STEMI with LBBB. Emergent cath notable for blockage of left circumflex. //PCI/BMS to the Left circumflex. went into Vfib in clinical lab assistant and was initiated on Amiodarone therapy. LVEF noted at 20-25%. Developed DAIJA due to cardiogenic shock. had multiple episodes of bradycardia/significant pauses mostly related to suctioning. then leadlessPPM placement.Treated for Klebsiella PNA as well. course further complicated by GIB requiring tranfusion. 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 03/30 Afebrile. On vent, FiO2 40%, PEEP 5. Patient needs AICD, but some significant complaints issues. I believe cardiology is to consult neurology for further input on this issue. Charts and labs reviewed. 03/29 Patient remains in ICU on vent. FiO2 40%, PEEP 5. Discussed with RN, episode of V-tach overnight. Cardiology to consider AICD. Will continue with antibiotics and diuresis. 03/28 Afebrile. No acute events overnight. On vent, FiO2 40%, PEEP 5. Potassium low today, will replace. Continue supportive care and antibiotics. Discussed with RN 03/27 Patient seen in ICU. Breathing on mechanical ventilator, FiO2 60%, PEEP 5. Patient failed extubation yesterday. Continue Zosyn, Zyvox, p.o. vancomycin. 03/26 Patient seen and evaluated in ICU. On vent FiO2 35%, PEEP 5. Afebrile. Continue Zosyn, Zyvox, and p.o. vancomycin. Chart and labs reviewed, discussed with RN. Vitals/I&O Vitals/I&O: Vital Signs Date Time Temp Pulse Resp B/P (MAP) Pulse Ox O2 Delivery O2 Flow Rate FiO2 03/30/20 15:00 81 20 104/45 (64) 100 Ventilator 03/30/20 12:00 99.4 99.4 I & O 03/29/20 03/29/20 03/30/20 15:00 23:00 07:00 Intake Total 530 ml 639.43 ml 1238 ml Output Total 500 ml 395 ml 995 ml Balance 30 ml 244.43 ml 243 ml Physical Exam Physical Exam: GENERAL: Intubated, sedated. HEENT: Conjunctival suffusion. Pupils equal, reactive. ETT OGT present. NECK: Supple. LUNGS: Clear anteriorly. HEART: S1, S2, tachycardia. ABDOMEN: Obese, mildly distended. Bowel sounds present. EXTREMITIES: No edema or cyanosis. DERMATOLOGIC: Warm and dry. No generalized rash. NEUROLOGIC: Unable to assess. Labs Labs: Laboratory Tests Test 03/30/20 05:55 03/30/20 08:40 White Blood Count 7.0 x10^3/uL (4.0-11.0) Red Blood Count 2.90 x10^6/uL (4.30-5.70) Hemoglobin 7.2 g/dL (13.0-17.5) Hematocrit 22.7 % (39.0-53.0) Mean Corpuscular Volume 78 fL (79-100) Mean Corpuscular Hemoglobin 25 pg (25-35) Mean Corpuscular Hemoglobin Concent 32 g/dL (31-37) Red Cell Distribution Width 18.2 % (11.5-14.5) Platelet Count 312 x10^3/uL (140-400) Neutrophils (%) (Auto) 60 % (31-73) Lymphocytes (%) (Auto) 30 % (24-48) Monocytes (%) (Auto) 7 % (0-9) Eosinophils (%) (Auto) 2 % (0-3) Basophils (%) (Auto) 1 % (0-3) Neutrophils # (Auto) 4.2 x10^3/uL (1.8-7.7) Lymphocytes # (Auto) 2.1 x10^3/uL (1.0-4.8) Monocytes # (Auto) 0.5 x10^3/uL (0.0-1.1) Eosinophils # (Auto) 0.2 x10^3/uL (0.0-0.7) Basophils # (Auto) 0.0 x10^3/uL (0.0-0.2) Sodium Level 145 mmol/L (136-145) Potassium Level 3.6 mmol/L (3.5-5.1) Chloride Level 111 mmol/L (98-107) Carbon Dioxide Level 23 mmol/L (21-32) Anion Gap 11 (6-14) Blood Urea Nitrogen 7 mg/dL (8-26) Creatinine 1.0 mg/dL (0.7-1.3) Estimated GFR (Cockcroft-Gault) 94.9 Glucose Level 88 mg/dL (70-99) Calcium Level 8.5 mg/dL (8.5-10.1) Magnesium Level 2.0 mg/dL (1.8-2.4) O2 Saturation 96 % (92-99) Arterial Blood pH 7.42 (7.35-7.45) Arterial Blood pCO2 at Patient Temp 32 mmHg (35-46) Arterial Blood pO2 at Patient Temp 86 mmHg (75-108) Arterial Blood HCO3 20 mmol/L (21-28) Arterial Blood Base Excess -4 mmol/L (-3-3) FiO2 40% Comment Review of Relevant I have reviewed the following items joel (where applicable) has been applied. Medications: Current Medications Medications (Trade) Dose Ordered Sig/Guy Route PRN Reason Start Time Stop Time Status Last Admin Dose Admin Amiodarone HCl (Cordarone) 400 mg DAILY PO 03/30/20 09:00 03/30/20 09:37 Magnesium Sulfate 50 ml @ 25 mls/hr 1X ONCE IV 03/30/20 09:45 03/30/20 11:44 DC 03/30/20 09:55 Potassium Bicarbonate (Potassium Effervescent Tablet) 40 meq 1X ONCE PEG 03/30/20 09:45 03/30/20 09:53 DC 03/30/20 09:54 Potassium Bicarbonate (Potassium Effervescent Tablet) 40 meq 1X ONCE PO 03/30/20 14:15 03/30/20 14:16 DC 03/30/20 13:40 Justifications for Admission Other Justification CARDIAC ARREST ROCIO MOHAN MD Mar 30, 2020 15:21
--- NOTE | 2020-03-30 16:08 | NUR ---
SS following up with discharge planning. SS reviewed pt chart and discussed with pt RN. Pt is currently on the vent at 40%. COVID19 negative and HIV positive. Pt on Milrinone drip. Pt on IV Zosyn. Considering AICD placement. Not stable. SS will continue to follow for discharge planning.
[2020-03-30] MEDS: ATORVASTATIN CALCIUM 40 MG TABLET. PO SCH (22:06)
[2020-03-31] VITALS (23 sets, daily range): BP systolic 85–149; BP diastolic 35–78
[2020-03-31] MEDS: PIPERACILLIN/TAZOBACTAM 3.375 GM in IV NORMAL SALINE 50ML 50 ML IV SCH ×5 (00:36→23:53)
[2020-03-31] MEDS: MIDAZOLAM 100mg/100ml NS BAG 100 ML IV PRN ×3 (02:20→16:26)
[2020-03-31] MEDS: IV NORMAL SALINE 1000ML BAG 1,000 ML IV SCH (04:27)
[2020-03-31] MEDS: DEXMEDETOMIDINE 400 MCG in IV NORMAL SALINE 100ML 96 ML IV PRN ×3 (04:28→23:04)
[2020-03-31 06:41] LABS: CALCIUM 8.6 mg/dL (8.5-10.1); CREATININE 1.1 mg/dL (0.7-1.3); GFR 85.1; POTASSIUM 3.6 mmol/L (3.5-5.1)
[2020-03-31 07:26] LABS: BASE EXCESS ABG -4 mmol/L (-3-3); HCO3 ABG 20 mmol/L (21-28); PCO2 ABG 32 mmHg (35-46); PO2 ABG 103 mmHg (75-108); SAT O2 ABG 97 % (92-99)
[2020-03-31 07:33] LABS: FIO2 ABG 40/VENT
[2020-03-31 07:36] LABS: HEMOGLOBIN 7.2 g/dL (13.0-17.5); RED BLOOD COUNT 2.81 x10^6/uL (4.30-5.70); RED CELL DISTRIBUTION WIDTH 17.9 % (11.5-14.5); WHITE BLOOD COUNT 8.1 x10^3/uL (4.0-11.0)
--- NOTE | 2020-03-31 07:58 | RAD ---
AP chest. HISTORY: Patient on ventilator AP view was taken of the chest. The heart is enlarged. There is a left jugular central line extending to the proximal superior vena cava. There is no pneumothorax. Endotracheal tube is at the level the clavicles without change. There is retrocardiac density which is likely atelectasis superimposed on i nfiltrates with worsening atelectasis. There is also retrocardiac density on the right suggesting wor sening atelectasis or infiltrate. There has been a mild improvement in the remaining infiltrates sinc e the prior study. IMPRESSION: 1. Worsening medial basilar atelectasis or infiltrates. 2. Tracheostomy tube in position. Electronically signed by: Roderick Heredia MD (03/31/2020 7:48 AM) [facility]
[2020-03-31] MEDS ORDERED: POTASSIUM BICARB 20 MEQ EFFERVESCENT TABLET. PEG ONE ×2 (08:00→12:00)
[2020-03-31] MEDS ORDERED: MAGNESIUM SULFATE 2GM 50 ML IV ONE (08:30)
[2020-03-31] MEDS: PANTOPRAZOLE IV PUSH 40 MG VIAL. IVP SCH (08:31)
[2020-03-31] MEDS: CLOPIDOGREL BISULFATE 75 MG TABLET PO SCH (08:37)
[2020-03-31] MEDS: VANCOMYCIN 125 MG/2.5 ML ORAL SOLUTION. PO SCH ×2 (08:38→21:37)
[2020-03-31] MEDS: AMIODARONE HCL 200 MG TABLET. PO SCH (08:39)
[2020-03-31] MEDS: FUROSEMIDE 40 MG/4 ML VIAL. IVP SCH (08:40)
[2020-03-31] MEDS: DOLUTEGRAVIR PO SCH (08:40)
[2020-03-31] MEDS: ABACAVIR PO SCH (08:40)
[2020-03-31] MEDS: LAMIVUDINE PO SCH (08:40)
[2020-03-31] MEDS: ELECTROLYTE (ICU) PROTOCOL. MC SCH (08:43)
--- NOTE | 2020-03-31 09:55 | PDOC ---
PULMONARY PROGRESS NOTES DATE: 03/31/20 TIME: 09:50 Subjective Pt. is on Fi02 40% and PEEP of 5 AC mode extubated 03/26, re-intubated for 03/26--V-Tac Arrest on primacor gtt S/P cardiac cath 03/27/20-- clean Vitals Vital Signs Date Time Temp Pulse Resp B/P (MAP) Pulse Ox O2 Delivery O2 Flow Rate FiO2 03/31/20 09:00 76 20 111/54 (73) 100 Ventilator 03/31/20 08:00 99.0 99.0 Comments Intubated/sedated General: Alert Cardiovascular: S1, S2 Extremities: No Edema Skin: Warm, Dry Labs Laboratory Tests Test 03/30/20 05:55 03/30/20 08:40 03/31/20 05:30 03/31/20 07:00 White Blood Count 7.0 x10^3/uL (4.0-11.0) 8.1 x10^3/uL (4.0-11.0) Red Blood Count 2.90 x10^6/uL (4.30-5.70) 2.81 x10^6/uL (4.30-5.70) Hemoglobin 7.2 g/dL (13.0-17.5) 7.2 g/dL (13.0-17.5) Hematocrit 22.7 % (39.0-53.0) 22.0 % (39.0-53.0) Mean Corpuscular Volume 78 fL (79-100) 78 fL (79-100) Mean Corpuscular Hemoglobin 25 pg (25-35) 26 pg (25-35) Mean Corpuscular Hemoglobin Concent 32 g/dL (31-37) 33 g/dL (31-37) Red Cell Distribution Width 18.2 % (11.5-14.5) 17.9 % (11.5-14.5) Platelet Count 312 x10^3/uL (140-400) 312 x10^3/uL (140-400) Neutrophils (%) (Auto) 60 % (31-73) Lymphocytes (%) (Auto) 30 % (24-48) Monocytes (%) (Auto) 7 % (0-9) Eosinophils (%) (Auto) 2 % (0-3) Basophils (%) (Auto) 1 % (0-3) Neutrophils # (Auto) 4.2 x10^3/uL (1.8-7.7) Lymphocytes # (Auto) 2.1 x10^3/uL (1.0-4.8) Monocytes # (Auto) 0.5 x10^3/uL (0.0-1.1) Eosinophils # (Auto) 0.2 x10^3/uL (0.0-0.7) Basophils # (Auto) 0.0 x10^3/uL (0.0-0.2) Sodium Level 145 mmol/L (136-145) 145 mmol/L (136-145) Potassium Level 3.6 mmol/L (3.5-5.1) 3.6 mmol/L (3.5-5.1) Chloride Level 111 mmol/L (98-107) 113 mmol/L (98-107) Carbon Dioxide Level 23 mmol/L (21-32) 21 mmol/L (21-32) Anion Gap 11 (6-14) 11 (6-14) Blood Urea Nitrogen 7 mg/dL (8-26) 7 mg/dL (8-26) Creatinine 1.0 mg/dL (0.7-1.3) 1.1 mg/dL (0.7-1.3) Estimated GFR (Cockcroft-Gault) 94.9 85.1 Glucose Level 88 mg/dL (70-99) 82 mg/dL (70-99) Calcium Level 8.5 mg/dL (8.5-10.1) 8.6 mg/dL (8.5-10.1) Magnesium Level 2.0 mg/dL (1.8-2.4) 2.0 mg/dL (1.8-2.4) O2 Saturation 96 % (92-99) 97 % (92-99) Arterial Blood pH 7.42 (7.35-7.45) 7.42 (7.35-7.45) Arterial Blood pCO2 at Patient Temp 32 mmHg (35-46) 32 mmHg (35-46) Arterial Blood pO2 at Patient Temp 86 mmHg (75-108) 103 mmHg (75-108) Arterial Blood HCO3 20 mmol/L (21-28) 20 mmol/L (21-28) Arterial Blood Base Excess -4 mmol/L (-3-3) -4 mmol/L (-3-3) FiO2 40% 40/vent Laboratory Tests Test 03/31/20 05:30 03/31/20 07:00 White Blood Count 8.1 x10^3/uL (4.0-11.0) Red Blood Count 2.81 x10^6/uL (4.30-5.70) Hemoglobin 7.2 g/dL (13.0-17.5) Hematocrit 22.0 % (39.0-53.0) Mean Corpuscular Volume 78 fL (79-100) Mean Corpuscular Hemoglobin 26 pg (25-35) Mean Corpuscular Hemoglobin Concent 33 g/dL (31-37) Red Cell Distribution Width 17.9 % (11.5-14.5) Platelet Count 312 x10^3/uL (140-400) Sodium Level 145 mmol/L (136-145) Potassium Level 3.6 mmol/L (3.5-5.1) Chloride Level 113 mmol/L (98-107) Carbon Dioxide Level 21 mmol/L (21-32) Anion Gap 11 (6-14) Blood Urea Nitrogen 7 mg/dL (8-26) Creatinine 1.1 mg/dL (0.7-1.3) Estimated GFR (Cockcroft-Gault) 85.1 Glucose Level 82 mg/dL (70-99) Calcium Level 8.6 mg/dL (8.5-10.1) Magnesium Level 2.0 mg/dL (1.8-2.4) O2 Saturation 97 % (92-99) Arterial Blood pH 7.42 (7.35-7.45) Arterial Blood pCO2 at Patient Temp 32 mmHg (35-46) Arterial Blood pO2 at Patient Temp 103 mmHg (75-108) Arterial Blood HCO3 20 mmol/L (21-28) Arterial Blood Base Excess -4 mmol/L (-3-3) FiO2 40/vent Medications Active Scripts Medications Dose Route/Sig Max Daily Dose Days Date Category Furosemide 40 Mg Tablet 40 Mg PO DAILY 02/02/20 Rx Tramadol Hcl 50 Mg Tablet 50 Mg PO PRN Q6HRS PRN 6 02/02/20 Rx Metoprolol Succinate ( Xl ) (Metoprolol Succinate) 25 Mg Tab.er.24h 12.5 Mg PO DAILY 02/02/20 Rx Clopidogrel (Clopidogrel Bisulfate) 75 Mg Tablet 75 Mg PO DAILYWBKFT 02/02/20 Rx Lisinopril 10 Mg Tablet 1 Tab PO DAILY 02/02/20 Rx Atorvastatin Calcium 80 Mg Tablet 80 Mg PO QHS 02/02/20 Rx Klor-Con M20 (Potassium Chloride) 20 Meq Tab.er.prt 20 Meq PO TID 01/31/20 Reported Pantoprazole Sodium (Pantoprazole Sodium) 40 Mg Tablet.dr 40 Mg PO BID 01/31/20 Reported Duoneb 0.5-3(2.5) Mg/3 Ml (Albuterol/Ipratropium) 3 Ml Ampul.neb 3 Ml NEB PRN Q6HRS PRN 01/31/20 Reported Acetaminophen 325 Mg Tablet 1 Tab PO PRN Q6HRS PRN 24 01/31/20 Reported Triumeq Tablet (Abacavir/Dolutegravir/Lamivudi) 1 Each Tablet 1 Tab PO DAILY 30 01/31/20 Reported Gabapentin (Gabapentin) 300 Mg Capsule 100 Mg PO TID 01/31/20 Reported Children's Aspirin (Aspirin) 81 Mg Tab.chew 1 Tab PO DAILY 30 01/31/20 Reported Impression . IMPRESSION: 1. Acute hypoxemic respiratory failure secondary to noq-fs-zudoanig cardiopulmonary arrest. extubated 03/26, re-intubated for V-Tac Arrest 2. History of ventricular fibrillation with previous ybe-eg-uvsbveml cardiac arrest. 3. History of coronary artery disease, status post percutaneous coronary intervention to the circumflex. 4. History of gastrointestinal bleed. 5. Chronic systolic heart failure. 6. Ischemic cardiomyopathy, ejection fraction 15%. 7. Status post pacemaker implantation. 8. Hypertension. 9. Hypokalemia. 10. Previous kidney injury requiring hemodialysis. 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 12. Human immunodeficiency virus. 13. Polysubstance use. Plan . Continue current AC support, will need to d/w cardiology /family reg superintendent terminal plans. will not extubate till AICD S/P cath 03/27/20 was clean AICD vs. life vest-- per cardiology D/W cardiology, they would like to proceed with life vest vs. AICD 2/2 compliance issues, plan to have meeting with Family to discuss plan of care and possible extubation on thursday Continue empiric antibiotics per infectious disease--zosyn and po vanco Follow cultures, respiratory culture growing out gram-positive cocci Follow other cardiology recommendations-- primacor gtt Hypotension per cardiology Follow GI recs PT/OT//ST DVT/GI prophylaxis Discussed with RN and RT Critical Care Time [id number] NERISSA AGUILAR MD Mar 31, 2020 09:55
[2020-03-31] MEDS: fentaNYL HIGH DOSE PCA 55 ML IV PRN ×2 (10:51→23:01)
--- NOTE | 2020-03-31 11:10 | PDOC ---
[employer] PROGRESS NOTE Date of Service DOS: DATE: 03/31/20 TIME: 11:09 Chief Complaint Chief Complaint VTE Prophylaxis Ordered VTE Prophylaxis Devices: Yes VTE Pharmacological Prophylaxi: Yes Assessment/Plan Assessment/Plan ASSESSMENT 1. out of hospital arrest , witness cardiac arrest; Defibrillation // AMI ruled out. 2. H/o Vfib probable ischemic in nature, antiarrhythmics discontinued in past due to QTc prolongation of 600. 3. Acute hypoxic respiratory failure requiring vent support 4. CAD s/p PCI/BMS to the LCx 12/11/19. Treated with ASA,Brilinta initially, which was held due to recurrent GIB requiring transfusions.Due to recent PCI/BMS, Plavix was resumed while at [facility]. ASA was d/c'd 5. Chronic systolic CHF 6. ischemic cardiomyopathy LVEF 20-25%. 7. SSS s/p leadless PPM 8. Hypertension; // requiring pressor support 9. Hypokalemia, hypomagnesemia 10. H/o DAIJA requiringHD; renal function improvedand HD catheter removed 11. 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 HIV 13. Substance abuse; UDS + cocaine , ALCOHOL, TOBACCO 14. Leukocytosis, fevers. ? sepsis Covid negative. 15. H/o Vfib OOH arrest; probable ischemic in nature, antiarrhythmics discontinued in past due to QTc prolongation of 600. EKG at [facility] with QTc 507, 528. 16. Human immunodeficiency virus, CD4 was 403 on 01/16 viral load less than 20 on 01/23on [facility]. 17. History of ventricular tachycardia, Coronary artery disease, status post PCI. 18. Status post pacemaker for bradycardia 12/27 at [place]. 19. hypernatremia, volume excess plan icu bed cardiology consult pulm consult Device interrogation Replace Mg, lytes Secondary prevention measures as able Resume Plavix. No ASA due to recent GIB Monitor LFTs Pressor support; wean as able Hold lisinopril, Toprol with hypotension Echo vent management GI CONSULT COVID 19 SCREEN vent support assist-control mode 50% and PEEP of 5 On heparin drip per cardiology hiv screen Echo to assess LV systolic function if COVID PCR negative Tube feeding on hold per GI, concern for ileus follow other GI recommendations vent support assist-control mode 40% and a PEEP of 5 Continue Zosyn,Zyvox Continue p.o. vancomycin for prophylaxis with history of recurrent C. difficile Continue Triumeq Follow up labs and cultures. 35% and a PEEP of 5 dec ns rate prognosis very guarded 39 MIN CC TIME History of Present Illness History of Present Illness Identification/Chief Complaint Chief Complaint admitted to icu , out of hospial arrest CAD s/p PCI/stent, cardiomyopathy, and prior cardiac arrest, presented secondary to cardiac arrest at home. Was at home with partner, Stevenson, watching television. Patient suddenly started breathing more deeply and began gasping for air. Eyes were wide and glassy. Was unresponsive. Partner was unable to feel pulse so he put him on the floor, called EMS and began chest compressions. Partner reports him drinking 3 malt beverages that evening while watching TV. No known sick contacts. EMS arrived within minutes. ROSC returned following one defibrillation. Although partner declined drug use, Narcan was administered en route due to pinpoint pupi ls. Limited effect from the Narcan. UDS was + for cocaine. IS COVID 19 PUI hx cardiac arrest on December 19, 2019. Patient was apparently found arrest in his car EMS noted in v-fib. ROSC was achieved following 1 defibrillation and 1 round of epi.//activated as STEMI with LBBB. Emergent cath notable for blockage of left circumflex. //PCI/BMS to the Left circumflex. 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 LVEF noted at 20-25%. Developed DAIJA due to cardiogenic shock. had multiple episodes of bradycardia/significant pauses mostly related to suctioning. then leadlessPPM placement.Treated for Klebsiella PNA as well. course further complicated by GIB requiring tranfusion. 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 03/31 Patient seen in ICU. Afebrile. On vent FiO2 40%, PEEP 5. Hemoglobin 7.2 and holding steady. We will continue to monitor and transfuse <7. Antibiotics per ID. 03/30 Afebrile. On vent, FiO2 40%, PEEP 5. Patient needs AICD, but some significant complaints issues. I believe cardiology is to consult neurology for further input on this issue. Charts and labs reviewed. 03/29 Patient remains in ICU on vent. FiO2 40%, PEEP 5. Discussed with RN, episode of V-tach overnight. Cardiology to consider AICD. Will continue with antibiotics and diuresis. 03/28 Afebrile. No acute events overnight. On vent, FiO2 40%, PEEP 5. Potassium low today, will replace. Continue supportive care and antibiotics. Discussed with RN 03/27 Patient seen in ICU. Breathing on mechanical ventilator, FiO2 60%, PEEP 5. Patient failed extubation yesterday. Continue Zosyn, Zyvox, p.o. vancomycin. 03/26 Patient seen and evaluated in ICU. On vent FiO2 35%, PEEP 5. Afebrile. Continue Zosyn, Zyvox, and p.o. vancomycin. Chart and labs reviewed, discussed with RN. Vitals/I&O Vitals/I&O: Vital Signs Date Time Temp Pulse Resp B/P (MAP) Pulse Ox O2 Delivery O2 Flow Rate FiO2 03/31/20 11:05 100 Ventilator 03/31/20 10:51 20 03/31/20 10:00 75 113/65 (81) 03/31/20 08:00 99.0 99.0 I & O 03/30/20 03/30/20 03/31/20 15:00 23:00 07:00 Intake Total 130 ml 1425.42 ml 683 ml Output Total 1775 ml 1315 ml 950 ml Balance -1645 ml 110.42 ml -267 ml Physical Exam Physical Exam: GENERAL: Intubated, sedated. HEENT: Conjunctival suffusion. Pupils equal, reactive. ETT OGT present. NECK: Supple. LUNGS: Clear anteriorly. HEART: S1, S2, tachycardia. ABDOMEN: Obese, mildly distended. Bowel sounds present. EXTREMITIES: No edema or cyanosis. DERMATOLOGIC: Warm and dry. No generalized rash. NEUROLOGIC: Unable to assess. Labs Labs: Laboratory Tests Test 03/31/20 05:30 03/31/20 07:00 White Blood Count 8.1 x10^3/uL (4.0-11.0) Red Blood Count 2.81 x10^6/uL (4.30-5.70) Hemoglobin 7.2 g/dL (13.0-17.5) Hematocrit 22.0 % (39.0-53.0) Mean Corpuscular Volume 78 fL (79-100) Mean Corpuscular Hemoglobin 26 pg (25-35) Mean Corpuscular Hemoglobin Concent 33 g/dL (31-37) Red Cell Distribution Width 17.9 % (11.5-14.5) Platelet Count 312 x10^3/uL (140-400) Sodium Level 145 mmol/L (136-145) Potassium Level 3.6 mmol/L (3.5-5.1) Chloride Level 113 mmol/L (98-107) Carbon Dioxide Level 21 mmol/L (21-32) Anion Gap 11 (6-14) Blood Urea Nitrogen 7 mg/dL (8-26) Creatinine 1.1 mg/dL (0.7-1.3) Estimated GFR (Cockcroft-Gault) 85.1 Glucose Level 82 mg/dL (70-99) Calcium Level 8.6 mg/dL (8.5-10.1) Magnesium Level 2.0 mg/dL (1.8-2.4) O2 Saturation 97 % (92-99) Arterial Blood pH 7.42 (7.35-7.45) Arterial Blood pCO2 at Patient Temp 32 mmHg (35-46) Arterial Blood pO2 at Patient Temp 103 mmHg (75-108) Arterial Blood HCO3 20 mmol/L (21-28) Arterial Blood Base Excess -4 mmol/L (-3-3) FiO2 40/vent Comment Review of Relevant I have reviewed the following items joel (where applicable) has been applied. Medications: Current Medications Medications (Trade) Dose Ordered Sig/Guy Route PRN Reason Start Time Stop Time Status Last Admin Dose Admin Potassium Bicarbonate (Potassium Effervescent Tablet) 40 meq 1X ONCE PO 03/30/20 14:15 03/30/20 14:16 DC 03/30/20 13:40 Milrinone Lactate/ Dextrose 100 ml @ 6.735 mls/ hr CONT PRN IV SEE I/O RECORD 03/30/20 15:30 03/30/20 20:55 Magnesium Sulfate 50 ml @ 25 mls/hr 1X ONCE IV 03/31/20 08:30 03/31/20 10:29 DC 03/31/20 08:38 Potassium Bicarbonate (Potassium Effervescent Tablet) 40 meq 1X ONCE PEG 03/31/20 08:00 03/31/20 08:01 DC 03/31/20 08:37 Justifications for Admission Other Justification CARDIAC ARREST ROCIO MOHAN MD Mar 31, 2020 11:10
--- NOTE | 2020-03-31 12:09 | PDOC ---
CARDIOLOGY PROGRESS NOTE SUBJECTIVE: No new issues overnight. Stable on ventilator. OBJECTIVE: Vital Signs/I&O: Vital Signs Date Time Temp Pulse Resp B/P (MAP) Pulse Ox O2 Delivery O2 Flow Rate FiO2 03/31/20 11:05 100 Ventilator 03/31/20 11:00 83 20 104/50 (68) 03/31/20 08:00 99.0 99.0 I & O 03/30/20 03/30/20 03/31/20 15:00 23:00 07:00 Intake Total 130 ml 1425.42 ml 683 ml Output Total 1775 ml 1315 ml 950 ml Balance -1645 ml 110.42 ml -267 ml Objective: He is more awake today, responds to commands. Irregular heart tones. No significant edema. CURRENT MEDICATIONS: Current Medications Medications (Trade) Dose Ordered Sig/Guy Route PRN Reason Start Time Stop Time Status Last Admin Dose Admin Potassium Bicarbonate (Potassium Effervescent Tablet) 40 meq 1X ONCE PO 03/30/20 14:15 03/30/20 14:16 DC 03/30/20 13:40 Milrinone Lactate/ Dextrose 100 ml @ 6.735 mls/ hr CONT PRN IV SEE I/O RECORD 03/30/20 15:30 03/30/20 20:55 Magnesium Sulfate 50 ml @ 25 mls/hr 1X ONCE IV 03/31/20 08:30 03/31/20 10:29 DC 03/31/20 08:38 Potassium Bicarbonate (Potassium Effervescent Tablet) 40 meq 1X ONCE PEG 03/31/20 08:00 03/31/20 08:01 DC 03/31/20 08:37 DIAGNOSTIC TESTING: labs reviewed. Labs: Laboratory Tests 03/31/20 05:30 Laboratory Tests Test 03/31/20 05:30 03/31/20 07:00 White Blood Count 8.1 x10^3/uL (4.0-11.0) Red Blood Count 2.81 x10^6/uL (4.30-5.70) L Hemoglobin 7.2 g/dL (13.0-17.5) L Hematocrit 22.0 % (39.0-53.0) L Mean Corpuscular Volume 78 fL (79-100) L Mean Corpuscular Hemoglobin 26 pg (25-35) Mean Corpuscular Hemoglobin Concent 33 g/dL (31-37) Red Cell Distribution Width 17.9 % (11.5-14.5) H Platelet Count 312 x10^3/uL (140-400) Sodium Level 145 mmol/L (136-145) Potassium Level 3.6 mmol/L (3.5-5.1) Chloride Level 113 mmol/L (98-107) H Carbon Dioxide Level 21 mmol/L (21-32) Anion Gap 11 (6-14) Blood Urea Nitrogen 7 mg/dL (8-26) L Creatinine 1.1 mg/dL (0.7-1.3) Estimated GFR (Cockcroft-Gault) 85.1 Glucose Level 82 mg/dL (70-99) Calcium Level 8.6 mg/dL (8.5-10.1) O2 Saturation 97 % (92-99) Arterial Blood pH 7.42 (7.35-7.45) Arterial Blood pCO2 at Patient Temp 32 mmHg (35-46) L Arterial Blood pO2 at Patient Temp 103 mmHg (75-108) Arterial Blood HCO3 20 mmol/L (21-28) L Arterial Blood Base Excess -4 mmol/L (-3-3) L FiO2 40/vent ASSESSMENT: 1. VF arrest - torsades 2. Mixed ischemic and non-ischemic CMP 3. Anemia of chronic disease. 4. Substance abuse. PLAN: 1. His overall prognosis is poor from his multiple comorbidities. Ultimately, he would benefit from an ICD if he is so willing to have it but he has a significant history of signing out AMA, refusing care and persistent substance abuse, in this setting, having an ICD that could risk further infection or cause shocks that the patient may not necessarily want is not appropriate. Therefore, we will hopefully able to extubate him, speak with him about his condition and determine if he wishes to have an ICD, otherwise, could continue medical therapy versus hospice. Discussed with sister/brother at bedside. Thanks. Justicifation of Admission Dx: Justifications for Admission: Justification of Admission Dx: Yes SHYAM AJ MD Mar 31, 2020 12:09
[2020-03-31] MEDS: MILRINONE 20MG/100ML PREMIX 100 ML IV PRN (12:36)
--- NOTE | 2020-03-31 16:50 | PDOC2 ---
CONSULT Date of Consult Date of Consult DATE: 03/31/20 TIME: 16:49 Reason for Consult Reason for Consult: AMS History of Present Illness Reason for Visit: This patient is 54 a year old man with past medical history of multiple medical problems with the out of hospital cardiac arrest, coronary artery disease, status post stent, cardiomyopathy, patient has prior cardiac arrest Patient was at home he was watching television. Patient had difficulty breathing, was unresponsive. Patient had a CPR, chest compressions, with a history of cocaine usage, with multiple medical problems acute respiratory failure on vent to, sedation, congestive heart failure, cardiomyopathy, leadless pacemaker, hypertension Past Medical History Cardiovascular: CAD, HTN, Hyperlipidemia Infectious disease: HIV Past Surgical History Past Surgical History: Pacemaker, Tonsillectomy, Other (PCI/stent ) Family History Family History: Hypertension, Other Social History <1 pack per day ALCOHOL: occassional Drugs: Cocaine Lives: with Family Current Medications Current Medications Current Medications Norepinephrine Bitartrate 8 mg/ Dextrose 258 ml @ 18.247 mls/ hr CONT PRN IV PER PROTOCOL Last administered on 03/28/20at 19:12; Start 03/20/20 at 04:15 Dopamine HCl/ Dextrose 250 ml @ 17.681 mls/ hr CONT PRN IV SEE I/O RECORD; Start 03/20/20 at 04:30 Heparin Sodium/ Dextrose 250 ml @ 0 mls/hr CONT PRN IV PER PROTOCOL Last adm inistered on 03/21/20at 22:15; Start 03/20/20 at 04:30; Stop 03/22/20 at 10:15; Status DC Heparin Sodium (Porcine) (Heparin Sodium) 2,400 unit PRN Q6HRS PRN IV FOR UFH LEVEL LESS THAN 0.2 Last administered on 03/21/20at 14:17; Start 03/20/20 at 04:30; Stop 03/22/20 at 10:15; Status DC Fentanyl Citrate 30 ml @ 0 mls/hr CONT PRN IV SEE PROTOCOL Last administered on 03/23/20at 06:19; Start 03/20/20 at 04:45; Stop 03/23/20 at 19:11; Status DC Lorazepam (Ativan Inj) 1 mg PRN Q1HR PRN IV SEE COMMENTS Last administered on 03/26/20at 14:30; Start 03/20/20 at 04:45; Stop 03/26/20 at 15:29; Status DC Fentanyl Citrate (Fentanyl 2ml Vial) 25 mcg PRN Q1HR PRN IV SEE COMMENTS; Start 03/20/20 at 04:45; Stop 03/26/20 at 15:29; Status DC Fentanyl Citrate (Fentanyl 2ml Vial) 50 mcg PRN Q1HR PRN IV SEE COMMENTS; Start 03/20/20 at 04:45; Stop 03/26/20 at 15:29; Status DC Chlorhexidine Gluconate (Peridex) 15 ml BID MM ; Start 03/20/20 at 09:00; Stop 03/20/20 at 07:24; Status DC Famotidine (Pepcid Vial) 20 mg BID IVP Last administered on 03/20/20at 08:07; Start 03/20/20 at 09:00; Stop 03/20/20 at 12:52; Status DC Morphine Sulfate (Morphine Sulfate) 2 mg PRN Q1HR PRN IV SEE COMMENTS.; Start 03/20/20 at 04:45; Stop 03/26/20 at 04:43; Status DC Morphine Sulfate (Morphine Sulfate) 4 mg PRN Q1HR PRN IV SEE COMMENTS.; Start 03/20/20 at 04:45; Stop 03/26/20 at 04:43; Status DC Midazolam HCl 100 ml @ 0 mls/hr CONT PRN IV SEE PROTOCOL Last administered on 03/26/20at 02:42; Start 03/20/20 at 04:45; Stop 03/26/20 at 15:29; Status DC Docusate Sodium (Colace Solution) 100 mg BID NG Last administered on 03/26/20at 08:35; Start 03/20/20 at 09:00; Stop 03/26/20 at 15:28; Status DC Sodium Chloride 1,000 ml @ 55 mls/hr [id number] IV Last administered on 03/31/20at 04:27; Start 03/20/20 at 06:30 Acetaminophen (Tylenol) 650 mg PRN Q6HRS PRN PEG MILD PAIN / TEMP > 100.3'F Last administered on 03/27/20at 20:51; Start 03/20/20 at 09:00 Piperacillin Sod/ Tazobactam Sod (Zosyn Per Pharmacy) 1 each PRN DAILY PRN MC SEE COMMENTS; Start 03/20/20 at 09:30 Piperacillin Sod/ Tazobactam Sod 3.375 gm/Sodium Chloride 50 ml @ 100 mls/hr Q6HRS IV Last administered on 03/31/20 12:31; Start 03/20/20 at 10:00 Magnesium Sulfate 50 ml @ 25 mls/hr 1X ONCE IV Last administered on 03/20/20at 10:21; Start 03/20/20 at 09:45; Stop 03/20/20 at 11:44; Status DC Clopidogrel Bisulfate (Plavix) 75 mg DAILYWBKFT PO Last administered on 03/31/20 08:37; Start 03/20/20 at 12:00 Atorvastatin Calcium (Lipitor) 80 mg QHS PO Last administered on 03/30/20 22:06; Start 03/20/20 at 21:00 Ondansetron HCl (Zofran) 4 mg PRN Q6HRS PRN IVP NAUSEA/VOMITING Last administered on 03/26/20 18:17; Start 03/20/20 at 10:30 Famotidine (Pepcid Vial) 20 mg BID IVP ; Start 03/20/20 at 11:00; Stop 03/20/20 at 12:35; Status DC Info (Icu Electrolyte Protocol) 1 ea DAILY MC Last administered on 03/31/20 08:43; Start 03/21/20 at 09:00 Sodium Chloride (Normal Saline Flush) 3 ml QSHIFT PRN IV AFTER MEDS AND BLOOD DRAWS; Start 03/20/20 at 10:30 Pantoprazole Sodium (PROTONIX VIAL for IV PUSH) 40 mg DAILYAC IVP Last administered on 03/31/20 08:31; Start 03/20/20 at 12:30 Potassium Bicarbonate (Potassium Effervescent Tablet) 40 meq 1X ONCE PEG Last administered on 03/20/20at 14:47; Start 03/20/20 at 14:00; Stop 03/20/20 at 14:20; Status DC Non-Formulary Medication (ABACAVIR/ DOLUTEGRAVIR/ LAMIVUDINE (Triumeq) tablet) 1 ea DAILY PO Last administered on 03/31/20 08:40; Start 03/20/20 at 17:00 Vancomycin HCl (Vancomycin Oral Solution) 125 mg BID PO Last administered on 03/31/20 08:38; Start 03/20/20 at 21:30 Linezolid/Dextrose 300 ml @ 300 mls/hr Q12HR IV Last administered on 03/28/20at 08:19; Start 03/21/20 at 09:00; Stop 03/28/20 at 08:39; Status DC Furosemide (Lasix) 40 mg DAILY IVP Last administered on 03/31/20at 08:40; Start 03/22/20 at 11:00 Potassium Chloride/Water 100 ml @ 50 mls/hr 1X ONCE IV Last administered on 03/22/20at 12:58; Start 03/22/20 at 10:30; Stop 03/22/20 at 12:29; Status DC Fentanyl Citrate 55 ml @ 0 mls/hr CONT PRN IV SEE PROTOCOL Last administered on 03/31/20at 10:51; Start 03/23/20 at 19:15 Dexmedetomidine HCl 400 mcg/ Sodium Chloride 100 ml @ 0 mls/hr CONT PRN IV PER PROTOCOL Last administered on 03/24/20at 03:33; Start 03/23/20 at 21:00; Stop 03/24/20 at 08:52; Status DC Sodium Chloride 500 ml @ 500 mls/hr 1X PRN PRN IV SEE COMMENTS; Start 03/23/20 at 21:00 Atropine Sulfate (ATROPINE 0.5mg SYRINGE) 0.5 mg PRN Q5MIN PRN IV SEE COMMENTS; Start 03/23/20 at 21:00 Haloperidol Lactate (Haldol Inj) 5 mg PRN Q6HRS PRN IVP AGITATION; Start 03/23/20 at 21:00; Stop 03/24/20 at 08:52; Status DC Propofol 100 ml @ 2.748 mls/ hr CONT PRN IV PER PROTOCOL Last administered on 03/25/20at 01:17; Start 03/24/20 at 09:00; Stop 03/26/20 at 15:31; Status DC Potassium Chloride/Water 100 ml @ 100 mls/hr Q1H IV Last administered on 03/25/20at 19:02; Start 03/25/20 at 10:00; Stop 03/25/20 at 17:59; Status DC Potassium Chloride/Water 100 ml @ 100 mls/hr Q1H IV ; Start 03/25/20 at 15:00; Stop 03/25/20 at 13:59; Status DC Potassium Bicarbonate (Potassium Effervescent Tablet) 40 meq 1X ONCE PO Last administered on 03/26/20at 08:36; Start 03/26/20 at 08:15; Stop 03/26/20 at 08:22; Status DC Propofol 100 ml @ As Directed STK-MED ONCE IV ; Start 03/26/20 at 19:07; Stop 03/26/20 at 19:07; Status DC Fentanyl Citrate 30 ml @ 0 mls/hr CONT PRN IV SEE PROTOCOL; Start 03/26/20 at 19:15; Status Cancel Propofol 100 ml @ 0 mls/hr CONT PRN IV PER PROTOCOL; Start 03/26/20 at 19:15; Status Cancel Fentanyl Citrate (Fentanyl 2ml Vial) 25 mcg PRN Q1HR PRN IV SEE COMMENTS; Start 03/26/20 at 19:15 Fentanyl Citrate (Fentanyl 2ml Vial) 50 mcg PRN Q1HR PRN IV SEE COMMENTS; Start 03/26/20 at 19:15 Chlorhexidine Gluconate (Peridex) 15 ml BID MM Last administered on 03/27/20at 20:51; Start 03/26/20 at 21:00; Stop 03/28/20 at 11:44; Status DC Morphine Sulfate (Morphine Sulfate) 2 mg PRN Q1HR PRN IV SEE COMMENTS.; Start 03/26/20 at 19:15; Status Cancel Morphine Sulfate (Morphine Sulfate) 2 mg PRN Q1HR PRN IV SEE COMMENTS.; Start 03/26/20 at 19:15; Stop 03/28/20 at 22:35; Status DC Morphine Sulfate (Morphine Sulfate) 4 mg PRN Q1HR PRN IV SEE COMMENTS.; Start 03/26/20 at 19:15; Stop 03/28/20 at 22:35; Status DC Olanzapine (ZyPREXA ZYDIS) 5 mg PRN Q4HRS PRN PO AGITATION, DELIRIUM; Start 03/26/20 at 19:15 Labetalol HCl (Normodyne Iv Push) 10 mg PRN Q2HR PRN IVP HYPERTENSION; Start 03/26/20 at 19:15 Fentanyl Citrate 30 ml @ 0 mls/hr CONT PRN IV SEE PROTOCOL; Start 03/26/20 at 19:15; Status UNV Propofol 100 ml @ 0 mls/hr CONT PRN IV PER PROTOCOL Last administered on 03/26/20at 19:46; Start 03/26/20 at 19:15 Midazolam HCl 100 ml @ 0 mls/hr CONT PRN IV SEE PROTOCOL Last administered on 03/31/20at 16:26; Start 03/26/20 at 19:15 Amiodarone HCl 150 mg/Dextrose 103 ml @ 618 mls/hr 1X ONCE IV Last administered on 03/26/20at 19:44; Start 03/26/20 at 19:45; Stop 03/26/20 at 19:54; Status DC Amiodarone HCl 450 mg/Dextrose 259 ml @ 0 mls/hr 1X ONCE IV Last administered on 03/26/20at 19:45; Start 03/26/20 at 19:45; Stop 03/26/20 at 19:46; Status DC Potassium Chloride/Water 100 ml @ 100 mls/hr Q1H IV Last administered on 03/27/20at 00:44; Start 03/26/20 at 21:00; Stop 03/27/20 at 00:59; Status DC Sodium Chloride 500 ml @ 500 mls/hr 1X ONCE IV Last administered on 03/26/20at 21:09; Start 03/26/20 at 21:15; Stop 03/26/20 at 22:14; Status DC Magnesium Sulfate 100 ml @ 50 mls/hr DAILY IV Last administered on 03/26/20at 22:23; Start 03/26/20 at 22:00; Stop 03/29/20 at 03:54; Status DC Etomidate (Amidate) 20 mg STK-MED ONCE IV ; Start 03/26/20 at 23:34; Stop 03/26/20 at 23:35; Status DC Succinylcholine Chloride (Anectine) 200 mg STK-MED ONCE .ROUTE ; Start 03/26/20 at 23:34; Stop 03/26/20 at 23:35; Status DC Lidocaine HCl (Lidocaine HCl 2% Abboject) 80 mg 1X ONCE IV Last administered on 03/27/20at 01:50; Start 03/27/20 at 02:00; Stop 03/27/20 at 02:01; Status DC Potassium Chloride/Water 100 ml @ 100 mls/hr Q1H IV Last administered on 03/27/20at 07:24; Start 03/27/20 at 02:00; Stop 03/27/20 at 05:59; Status DC Dexmedetomidine HCl 400 mcg/ Sodium Chloride 100 ml @ 0 mls/hr CONT PRN IV PER PROTOCOL Last administered on 03/31/20at 12:36; Start 03/27/20 at 01:45 Sodium Chloride 500 ml @ 500 mls/hr 1X PRN PRN IV SEE COMMENTS; Start 03/27/20 at 01:45; Status Cancel Atropine Sulfate (ATROPINE 0.5mg SYRINGE) 0.5 mg PRN Q5MIN PRN IV SEE COMMENTS; Start 03/27/20 at 01:45; Stop 03/27/20 at 16:31; Status DC Amiodarone HCl 450 mg/Dextrose 259 ml @ 16.7 mls/hr CONT PRN IV SEE I/O RECORD Last administered on 03/27/20at 18:15; Start 03/27/20 at 03:00; Stop 03/27/20 at 18:16; Status DC Lidocaine HCl (Lidocaine 1% 20ml Vial) 20 ml STK-MED ONCE .ROUTE ; Start 03/27/20 at 09:23; Stop 03/27/20 at 09:23; Status DC Heparin Sodium/ Sodium Chloride 1,000 ml @ As Directed STK-MED ONCE .ROUTE ; Start 03/27/20 at 09:23; Stop 03/27/20 at 09:24; Status DC Iodixanol (Visipaque 320) 100 ml STK-MED ONCE .ROUTE ; Start 03/27/20 at 09:23; Stop 03/27/20 at 09:24; Status DC Heparin Sodium/ Sodium Chloride (HEPARIN for ARTERIAL LINE FLUSH) 1,000 unit 1X ONCE IART Last administered on 03/27/20at 10:00; Start 03/27/20 at 10:00; Stop 03/27/20 at 10:01; Status DC Heparin Sodium/ Sodium Chloride (HEPARIN for ARTERIAL LINE FLUSH) 1,000 unit 1X ONCE IART Last administered on 03/27/20at 10:00; Start 03/27/20 at 10:00; Stop 03/27/20 at 10:01; Status DC Iodixanol (Visipaque 320) 100 ml 1X ONCE IART Last administered on 03/27/20at 11:05; Start 03/27/20 at 10:00; Stop 03/27/20 at 10:01; Status DC Lidocaine HCl (Lidocaine 1% 20ml Vial) 20 ml 1X ONCE INJ Last administered on 03/27/20at 10:41; Start 03/27/20 at 10:00; Stop 03/27/20 at 10:01; Status DC Info (CONTRAST GIVEN -- Rx MONITORING) 1 each PRN DAILY PRN MC SEE COMMENTS; Start 03/27/20 at 10:00; Stop 03/29/20 at 09:59; Status DC Milrinone Lactate/ Dextrose 100 ml @ 10.103 mls/ hr CONT PRN IV SEE I/O RECORD Last administered on 03/30/20at 09:19; Start 03/27/20 at 11:30; Stop 03/30/20 at 15:28; Status DC Epinephrine HCl (EPINEPHrine SYRINGE) 1 mg STK-MED ONCE .ROUTE ; Start 03/26/20 at 21:00; Stop 03/27/20 at 19:23; Status DC Sodium Bicarbonate (Sodium Bicarb Adult 8.4% Syr) 50 meq STK-MED ONCE .ROUTE ; Start 03/26/20 at 21:00; Stop 03/27/20 at 19:23; Status DC Potassium Chloride/Water 100 ml @ 100 mls/hr Q1H IV Last administered on 03/28/20at 08:18; Start 03/28/20 at 06:00; Stop 03/28/20 at 07:59; Status DC Amiodarone HCl (Cordarone) 200 mg BID PO Last administered on 03/29/20at 07:46; Start 03/28/20 at 21:00; Stop 03/29/20 at 10:29; Status DC Lidocaine HCl (Lidocaine HCl 2% Abboject) 80 mg 1X ONCE IV Last administered on 03/28/20at 19:55; Start 03/28/20 at 20:15; Stop 03/28/20 at 20:16; Status DC Amiodarone HCl (Cordarone) 200 mg 1X ONCE PO Last administered on 03/29/20at 13:55; Start 03/29/20 at 13:45; Stop 03/29/20 at 13:50; Status DC Amiodarone HCl (Cordarone) 400 mg DAILY PO Last administered on 03/31/20at 08:39; Start 03/30/20 at 09:00 Magnesium Sulfate 50 ml @ 25 mls/hr 1X ONCE IV Last administered on 03/30/20at 09:55; Start 03/30/20 at 09:45; Stop 03/30/20 at 11:44; Status DC Potassium Bicarbonate (Potassium Effervescent Tablet) 40 meq 1X ONCE PEG Last administered on 03/30/20at 09:54; Start 03/30/20 at 09:45; Stop 03/30/20 at 09:53; Status DC Potassium Bicarbonate (Potassium Effervescent Tablet) 40 meq 1X ONCE PO Last administered on 03/30/20at 13:40; Start 03/30/20 at 14:15; Stop 03/30/20 at 14:16; Status DC Epinephrine HCl (EPINEPHrine SYRINGE) 1 mg STK-MED ONCE .ROUTE ; Start 03/29/20 at 12:00; Stop 03/30/20 at 13:02; Status DC Lidocaine HCl (Lidocaine HCl 2% Abboject) 100 mg STK-MED ONCE .ROUTE ; Start 03/29/20 at 12:00; Stop 03/30/20 at 13:02; Status DC Milrinone Lactate/ Dextrose 100 ml @ 6.735 mls/ hr CONT PRN IV SEE I/O RECORD Last administered on 03/31/20at 12:36; Start 03/30/20 at 15:30 Magnesium Sulfate 50 ml @ 25 mls/hr 1X ONCE IV Last administered on 03/31/20at 08:38; Start 03/31/20 at 08:30; Stop 03/31/20 at 10:29; Status DC Potassium Bicarbonate (Potassium Effervescent Tablet) 40 meq 1X ONCE PEG Last administered on 03/31/20at 08:37; Start 03/31/20 at 08:00; Stop 03/31/20 at 08:01; Status DC Potassium Bicarbonate (Potassium Effervescent Tablet) 40 meq 1X ONCE PEG Last administered on 03/31/20at 12:31; Start 03/31/20 at 12:00; Stop 03/31/20 at 12:01; Status DC Active Scripts Active Furosemide 40 Mg Tablet 40 Mg PO DAILY 90 Days Tramadol Hcl 50 Mg Tablet 50 Mg PO PRN Q6HRS PRN 6 Days Metoprolol Succinate ( Xl ) (Metoprolol Succinate) 25 Mg Tab.er.24h 12.5 Mg PO DAILY 90 Days Clopidogrel (Clopidogrel Bisulfate) 75 Mg Tablet 75 Mg PO [id number] 90 Days Lisinopril 10 Mg Tablet 1 Tab PO DAILY 90 Days Atorvastatin Calcium 80 Mg Tablet 80 Mg PO QHS 90 Days Reported Klor-Con M20 (Potassium Chloride) 20 Meq Tab.er.prt 20 Meq PO TID Pantoprazole Sodium (Pantoprazole Sodium) 40 Mg Tablet.dr 40 Mg PO BID Duoneb 0.5-3(2.5) Mg/3 Ml (Albuterol/Ipratropium) 3 Ml Ampul.neb 3 Ml NEB PRN Q6HRS PRN Acetaminophen 325 Mg Tablet 1 Tab PO PRN Q6HRS PRN 24 Days Triumeq Tablet (Abacavir/Dolutegravir/Lamivudi) 1 Each Tablet 1 Tab PO DAILY 30 Days Gabapentin (Gabapentin) 300 Mg Capsule 100 Mg PO TID Children's Aspirin (Aspirin) 81 Mg Tab.chew 1 Tab PO DAILY 30 Days Allergies Allergies: Coded Allergies: No Known Drug Allergies (Unverified , 01/30/20) ROS Review of System unobtainable due to current medical condition Physical Exam Physical Exam PHYSICAL EXAMINATION: General: intubated sedated Meg HEENT: Normal cephalic and non traumatic. Neck: No lymphadenopathy. No resistance. Cardiac: S1, S2 Pulmonary: On vent. Abdomen: Bowel sounds are normal. NEUROLOGICAL EXAMINATION: On vent. Unresponsiveness. Sedation Pupils 1 mm, decreased reaction to light stimuli.. EOMI not elicited. CN: No acute findings. Neck: No resistance Muscle Tone: decreased. Muscle Strength: minimal movements noted to stimuli DTR: 0-1 Sensory: Minimal response to pain stimuli. Plantar Reflex: No response bilaterally Cerebellar Signs: Not able Gait: Not able Vitals VITALS Vital Signs Date Time Temp Pulse Resp B/P (MAP) Pulse Ox O2 Delivery O2 Flow Rate FiO2 03/31/20 16:00 99.3 88 20 85/56 (66) 100 Ventilator 99.3 Labs Labs Laboratory Tests Test 03/30/20 05:55 03/30/20 08:40 03/31/20 05:30 03/31/20 07:00 White Blood Count 7.0 x10^3/uL (4.0-11.0) 8.1 x10^3/uL (4.0-11.0) Red Blood Count 2.90 x10^6/uL (4.30-5.70) 2.81 x10^6/uL (4.30-5.70) Hemoglobin 7.2 g/dL (13.0-17.5) 7.2 g/dL (13.0-17.5) Hematocrit 22.7 % (39.0-53.0) 22.0 % (39.0-53.0) Mean Corpuscular Volume 78 fL (79-100) 78 fL (79-100) Mean Corpuscular Hemoglobin 25 pg (25-35) 26 pg (25-35) Mean Corpuscular Hemoglobin Concent 32 g/dL (31-37) 33 g/dL (31-37) Red Cell Distribution Width 18.2 % (11.5-14.5) 17.9 % (11.5-14.5) Platelet Count 312 x10^3/uL (140-400) 312 x10^3/uL (140-400) Neutrophils (%) (Auto) 60 % (31-73) Lymphocytes (%) (Auto) 30 % (24-48) Monocytes (%) (Auto) 7 % (0-9) Eosinophils (%) (Auto) 2 % (0-3) Basophils (%) (Auto) 1 % (0-3) Neutrophils # (Auto) 4.2 x10^3/uL (1.8-7.7) Lymphocytes # (Auto) 2.1 x10^3/uL (1.0-4.8) Monocytes # (Auto) 0.5 x10^3/uL (0.0-1.1) Eosinophils # (Auto) 0.2 x10^3/uL (0.0-0.7) Basophils # (Auto) 0.0 x10^3/uL (0.0-0.2) Sodium Level 145 mmol/L (136-145) 145 mmol/L (136-145) Potassium Level 3.6 mmol/L (3.5-5.1) 3.6 mmol/L (3.5-5.1) Chloride Level 111 mmol/L (98-107) 113 mmol/L (98-107) Carbon Dioxide Level 23 mmol/L (21-32) 21 mmol/L (21-32) Anion Gap 11 (6-14) 11 (6-14) Blood Urea Nitrogen 7 mg/dL (8-26) 7 mg/dL (8-26) Creatinine 1.0 mg/dL (0.7-1.3) 1.1 mg/dL (0.7-1.3) Estimated GFR (Cockcroft-Gault) 94.9 85.1 Glucose Level 88 mg/dL (70-99) 82 mg/dL (70-99) Calcium Level 8.5 mg/dL (8.5-10.1) 8.6 mg/dL (8.5-10.1) Magnesium Level 2.0 mg/dL (1.8-2.4) 2.0 mg/dL (1.8-2.4) O2 Saturation 96 % (92-99) 97 % (92-99) Arterial Blood pH 7.42 (7.35-7.45) 7.42 (7.35-7.45) Arterial Blood pCO2 at Patient Temp 32 mmHg (35-46) 32 mmHg (35-46) Arterial Blood pO2 at Patient Temp 86 mmHg (75-108) 103 mmHg (75-108) Arterial Blood HCO3 20 mmol/L (21-28) 20 mmol/L (21-28) Arterial Blood Base Excess -4 mmol/L (-3-3) -4 mmol/L (-3-3) FiO2 40% 40/vent Laboratory Tests Test 03/31/20 05:30 03/31/20 07:00 White Blood Count 8.1 x10^3/uL (4.0-11.0) Red Blood Count 2.81 x10^6/uL (4.30-5.70) Hemoglobin 7.2 g/dL (13.0-17.5) Hematocrit 22.0 % (39.0-53.0) Mean Corpuscular Volume 78 fL (79-100) Mean Corpuscular Hemoglobin 26 pg (25-35) Mean Corpuscular Hemoglobin Concent 33 g/dL (31-37) Red Cell Distribution Width 17.9 % (11.5-14.5) Platelet Count 312 x10^3/uL (140-400) Sodium Level 145 mmol/L (136-145) Potassium Level 3.6 mmol/L (3.5-5.1) Chloride Level 113 mmol/L (98-107) Carbon Dioxide Level 21 mmol/L (21-32) Anion Gap 11 (6-14) Blood Urea Nitrogen 7 mg/dL (8-26) Creatinine 1.1 mg/dL (0.7-1.3) Estimated GFR (Cockcroft-Gault) 85.1 Glucose Level 82 mg/dL (70-99) Calcium Level 8.6 mg/dL (8.5-10.1) Magnesium Level 2.0 mg/dL (1.8-2.4) O2 Saturation 97 % (92-99) Arterial Blood pH 7.42 (7.35-7.45) Arterial Blood pCO2 at Patient Temp 32 mmHg (35-46) Arterial Blood pO2 at Patient Temp 103 mmHg (75-108) Arterial Blood HCO3 20 mmol/L (21-28) Arterial Blood Base Excess -4 mmol/L (-3-3) FiO2 40/vent Assessment/Plan Assessment/Plan This patient is 54 a year old man with past medical history of multiple medical problems with the out of hospital cardiac arrest, coronary artery disease, status post stent, cardiomyopathy, patient has prior cardiac arrest Patient was at home he was watching television. Patient had difficulty breathing, was unresponsive. Patient had a CPR, chest compressions, with a history of cocaine usage, with multiple medical problems acute respiratory failure on vent to, sedation, congestive heart failure, cardiomyopathy, leadless pacemaker, hypertension With multiple medical problems with the cardiac arrest, respiratory failure, coronary artery disease, congestive heart failure, cardiomyopathy, drug usage, kidney injury, on antibiotics, intubated, currently requiring sedation, concern for anoxic encephalopathy will get CT brain to evaluate further for acute intracranial injury, when able to tolerate, prognosis guarded, continue medical management Thank you for allowing me to take part in this patient's care. Please not hesitate to contact me with questions. Transcribed using dictation device. The dictation could contain irregularities inherent in the voice to text conversion software, which may not be detected during the document review process. Please contact our office in case of any confusion or for any clarification, as needed. NERISSA PONCE MD Mar 31, 2020 16:50
[2020-03-31] MEDS: ATORVASTATIN CALCIUM 40 MG TABLET. PO SCH (21:36)
[2020-04-01] VITALS (24 sets, daily range): BP systolic 92–146; BP diastolic 38–99
[2020-04-01] MEDS: MIDAZOLAM 100mg/100ml NS BAG 100 ML IV PRN ×2 (03:33→12:21)
[2020-04-01] MEDS: IV NORMAL SALINE 1000ML BAG 1,000 ML IV SCH (03:34)
[2020-04-01] MEDS: MILRINONE 20MG/100ML PREMIX 100 ML IV PRN ×2 (03:34→20:33)
[2020-04-01] MEDS: PIPERACILLIN/TAZOBACTAM 3.375 GM in IV NORMAL SALINE 50ML 50 ML IV SCH ×4 (06:06→23:29)
[2020-04-01 06:08] LABS: ALBUMIN/GLOBULIN RATIO 0.4 (1.0-1.7); CALCIUM 8.5 mg/dL (8.5-10.1); CREATININE 1.1 mg/dL (0.7-1.3); GFR 85.1; MAGNESIUM 2.1 mg/dL (1.8-2.4); POTASSIUM 3.6 mmol/L (3.5-5.1); TOTAL BILIRUBIN 0.4 mg/dL (0.2-1.0); TOTAL PROTEIN 6.8 g/dL (6.4-8.2)
[2020-04-01 06:52] LABS: HEMATOCRIT 22.4 % (39.0-53.0); HEMOGLOBIN 7.1 g/dL (13.0-17.5); RED BLOOD COUNT 2.86 x10^6/uL (4.30-5.70); RED CELL DISTRIBUTION WIDTH 17.8 % (11.5-14.5); WHITE BLOOD COUNT 10.6 x10^3/uL (4.0-11.0)
[2020-04-01 07:48] LABS: BASE EXCESS ABG -3 mmol/L (-3-3); HCO3 ABG 22 mmol/L (21-28); PCO2 ABG 37 mmHg (35-46); PO2 ABG 97 mmHg (75-108); SAT O2 ABG 97 % (92-99)
[2020-04-01 07:49] LABS: FIO2 ABG 40/VENT
--- NOTE | 2020-04-01 08:59 | PDOC ---
CARDIOLOGY PROGRESS NOTE SUBJECTIVE: No new changes. He is stable. OBJECTIVE: Vital Signs/I&O: Vital Signs Date Time Temp Pulse Resp B/P (MAP) Pulse Ox O2 Delivery O2 Flow Rate FiO2 04/01/20 07:54 Mechanical Ventilator 04/01/20 07:02 100 04/01/20 07:00 87 20 135/62 (86) 04/01/20 04:00 99.1 99.1 I & O 03/31/20 03/31/20 04/01/20 15:00 23:00 07:00 Intake Total 330 ml 1199.82 ml 1736 ml Output Total 1995 ml 975 ml 675 ml Balance -1665 ml 224.82 ml 1061 ml Objective: Sedated. RUE swollen compared to left. No edema. Irregular heart tones. CURRENT MEDICATIONS: Current Medications Medications (Trade) Dose Ordered Sig/Guy Route PRN Reason Start Time Stop Time Status Last Admin Dose Admin Potassium Bicarbonate (Potassium Effervescent Tablet) 40 meq 1X ONCE PEG 03/31/20 12:00 03/31/20 12:01 DC 03/31/20 12:31 DIAGNOSTIC TESTING: Labs reviewed. Na 148 K 3.6 Labs: Laboratory Tests 04/01/20 05:00 Laboratory Tests Test 03/31/20 17:35 04/01/20 05:00 04/01/20 07:00 Glucose (Fingerstick) 86 mg/dL (70-99) White Blood Count 10.6 x10^3/uL (4.0-11.0) Red Blood Count 2.86 x10^6/uL (4.30-5.70) L Hemoglobin 7.1 g/dL (13.0-17.5) L Hematocrit 22.4 % (39.0-53.0) L Mean Corpuscular Volume 79 fL (79-100) Mean Corpuscular Hemoglobin 25 pg (25-35) Mean Corpuscular Hemoglobin Concent 32 g/dL (31-37) Red Cell Distribution Width 17.8 % (11.5-14.5) H Platelet Count 361 x10^3/uL (140-400) Sodium Level 148 mmol/L (136-145) H Potassium Level 3.6 mmol/L (3.5-5.1) Chloride Level 111 mmol/L (98-107) H Carbon Dioxide Level 23 mmol/L (21-32) Anion Gap 14 (6-14) Blood Urea Nitrogen 7 mg/dL (8-26) L Creatinine 1.1 mg/dL (0.7-1.3) Estimated GFR (Cockcroft-Gault) 85.1 BUN/Creatinine Ratio 6 (6-20) Glucose Level 85 mg/dL (70-99) Calcium Level 8.5 mg/dL (8.5-10.1) Total Bilirubin 0.4 mg/dL (0.2-1.0) Aspartate Amino Transf (AST/SGOT) 16 U/L (15-37) Alkaline Phosphatase 61 U/L (46-116) Total Protein 6.8 g/dL (6.4-8.2) Albumin 2.0 g/dL (3.4-5.0) L Albumin/Globulin Ratio 0.4 (1.0-1.7) L O2 Saturation 97 % (92-99) Arterial Blood pH 7.39 (7.35-7.45) Arterial Blood pCO2 at Patient Temp 37 mmHg (35-46) Arterial Blood pO2 at Patient Temp 97 mmHg (75-108) Arterial Blood HCO3 22 mmol/L (21-28) Arterial Blood Base Excess -3 mmol/L (-3-3) FiO2 40/vent ASSESSMENT: 1. VF arrest - torsades 2. Mixed ischemic and non-ischemic CMP 3. Anemia of chronic disease. 4. Substance abuse. PLAN: 1. For now, continue current meds. Will ensure lytes are stable. Then plan for extubation tomorrow and determine further plans. Will have device checked as able tomorrow. Check RUE ultrasound Justicifation of Admission Dx: Justifications for Admission: Justification of Admission Dx: Yes SHYAM AJ MD Apr 01, 2020 08:59
[2020-04-01] MEDS: FUROSEMIDE 40 MG/4 ML VIAL. IVP SCH (09:00)
[2020-04-01] MEDS ORDERED: POTASSIUM BICARB 20 MEQ EFFERVESCENT TABLET. PO ONE (09:45)
--- NOTE | 2020-04-01 09:56 | PDOC ---
[employer] PROGRESS NOTE Date of Service DOS: DATE: 04/01/20 TIME: 09:55 Chief Complaint Chief Complaint VTE Prophylaxis Ordered VTE Prophylaxis Devices: Yes VTE Pharmacological Prophylaxi: Yes Assessment/Plan Assessment/Plan ASSESSMENT 1. out of hospital arrest , witness cardiac arrest; Defibrillation // AMI ruled out. 2. H/o Vfib probable ischemic in nature, antiarrhythmics discontinued in past due to QTc prolongation of 600. 3. Acute hypoxic respiratory failure requiring vent support 4. CAD s/p PCI/BMS to the LCx 12/11/19. Treated with ASA,Brilinta initially, which was held due to recurrent GIB requiring transfusions.Due to recent PCI/BMS, Plavix was resumed while at [facility]. ASA was d/c'd 5. Chronic systolic CHF 6. ischemic cardiomyopathy LVEF 20-25%. 7. SSS s/p leadless PPM 8. Hypertension; // requiring pressor support 9. Hypokalemia, hypomagnesemia 10. H/o DAIJA requiringHD; renal function improvedand HD catheter removed 11. 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 HIV 13. Substance abuse; UDS + cocaine , ALCOHOL, TOBACCO 14. Leukocytosis, fevers. ? sepsis Covid negative. 15. H/o Vfib OOH arrest; probable ischemic in nature, antiarrhythmics discontinued in past due to QTc prolongation of 600. EKG at [facility] with QTc 507, 528. 16. Human immunodeficiency virus, CD4 was 403 on 01/16 viral load less than 20 on 01/23on [facility]. 17. History of ventricular tachycardia, Coronary artery disease, status post PCI. 18. Status post pacemaker for bradycardia 12/27 at [facility]. 19. hypernatremia, volume excess plan icu bed cardiology consult pulm consult Device interrogation Replace Mg, lytes Secondary prevention measures as able Resume Plavix. No ASA due to recent GIB Monitor LFTs Pressor support; wean as able Hold lisinopril, Toprol with hypotension Echo vent management GI CONSULT COVID 19 SCREEN vent support assist-control mode 50% and PEEP of 5 On heparin drip per cardiology hiv screen Echo to assess LV systolic function if COVID PCR negative Tube feeding on hold per GI, concern for ileus follow other GI recommendations vent support assist-control mode 40% and a PEEP of 5 Continue Zosyn,Zyvox Continue p.o. vancomycin for prophylaxis with history of recurrent C. difficile Continue Triumeq Follow up labs and cultures. 35% and a PEEP of 5 dec ns rate prognosis very guarded 39 MIN CC TIME History of Present Illness History of Present Illness Identification/Chief Complaint Chief Complaint admitted to icu , out of hospial arrest CAD s/p PCI/stent, cardiomyopathy, and prior cardiac arrest, presented secondary to cardiac arrest at home. Was at home with partner, Stevenson, watching television. Patient suddenly started breathing more deeply and began gasping for air. Eyes were wide and glassy. Was unresponsive. Partner was unable to feel pulse so he put him on the floor, called EMS and began chest compressions. Partner reports him drinking 3 malt beverages that evening while watching TV. No known sick contacts. EMS arrived within minutes. ROSC returned following one defibrillation. Although partner declined drug use, Narcan was administered en route due to pinpoint pup ils. Limited effect from the Narcan. UDS was + for cocaine. IS COVID 19 PUI hx cardiac arrest on December 19, 2019. Patient was apparently found arrest in his car EMS noted in v-fib. ROSC was achieved following 1 defibrillation and 1 round of epi.//activated as STEMI with LBBB. Emergent cath notable for blockage of left circumflex. //PCI/BMS to the Left circumflex. went into Vfib in [facility] and was initiated on Amiodarone therapy. LVEF noted at 20-25%. Developed DAIJA due to cardiogenic shock. had multiple episodes of bradycardia/significant pauses mostly related to suctioning. then leadlessPPM placement.Treated for Klebsiella PNA as well. course further complicated by GIB requiring tranfusion. 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 Remains on vent, FiO2 40%, PEEP 5. Swelling noted to his right arm, will obtain ultrasound to evaluate. Discussed with RN, will attempt trial extubation tomorrow. 03/31 Patient seen in ICU. Afebrile. On vent FiO2 40%, PEEP 5. Hemoglobin 7.2 and holding steady. We will continue to monitor and transfuse <7. Antibiotics per ID. 03/30 Afebrile. On vent, FiO2 40%, PEEP 5. Patient needs AICD, but some significant complaints issues. I believe cardiology is to consult neurology for further input on this issue. Charts and labs reviewed. 03/29 Patient remains in ICU on vent. FiO2 40%, PEEP 5. Discussed with RN, episode of V-tach overnight. Cardiology to consider AICD. Will continue with antibiotics and diuresis. 03/28 Afebrile. No acute events overnight. On vent, FiO2 40%, PEEP 5. Potassium low today, will replace. Continue supportive care and antibiotics. Discussed with RN 03/27 Patient seen in ICU. Breathing on mechanical ventilator, FiO2 60%, PEEP 5. Patient failed extubation yesterday. Continue Zosyn, Zyvox, p.o. vancomycin. 03/26 Patient seen and evaluated in ICU. On vent FiO2 35%, PEEP 5. Afebrile. Continue Zosyn, Zyvox, and p.o. vancomycin. Chart and labs reviewed, discussed with RN. Vitals/I&O Vitals/I&O: Vital Signs Date Time Temp Pulse Resp B/P (MAP) Pulse Ox O2 Delivery O2 Flow Rate FiO2 04/01/20 09:00 98.9 88 20 117/52 (73) 100 Ventilator 98.9 I & O 03/31/20 03/31/20 04/01/20 14:59 22:59 06:59 Intake Total 330 ml 1199.82 ml 1736 ml Output Total 1995 ml 975 ml 675 ml Balance -1665 ml 224.82 ml 1061 ml Physical Exam Physical Exam: GENERAL: Intubated, sedated. HEENT: Conjunctival suffusion. Pupils equal, reactive. ETT OGT present. NECK: Supple. LUNGS: Clear anteriorly. HEART: S1, S2, tachycardia. ABDOMEN: Obese, mildly distended. Bowel sounds present. EXTREMITIES: No edema or cyanosis. DERMATOLOGIC: Warm and dry. No generalized rash. NEUROLOGIC: Unable to assess. Labs Labs: Laboratory Tests Test 03/31/20 17:35 04/01/20 05:00 04/01/20 07:00 Glucose (Fingerstick) 86 mg/dL (70-99) White Blood Count 10.6 x10^3/uL (4.0-11.0) Red Blood Count 2.86 x10^6/uL (4.30-5.70) Hemoglobin 7.1 g/dL (13.0-17.5) Hematocrit 22.4 % (39.0-53.0) Mean Corpuscular Volume 79 fL (79-100) Mean Corpuscular Hemoglobin 25 pg (25-35) Mean Corpuscular Hemoglobin Concent 32 g/dL (31-37) Red Cell Distribution Width 17.8 % (11.5-14.5) Platelet Count 361 x10^3/uL (140-400) Sodium Level 148 mmol/L (136-145) Potassium Level 3.6 mmol/L (3.5-5.1) Chloride Level 111 mmol/L (98-107) Carbon Dioxide Level 23 mmol/L (21-32) Anion Gap 14 (6-14) Blood Urea Nitrogen 7 mg/dL (8-26) Creatinine 1.1 mg/dL (0.7-1.3) Estimated GFR (Cockcroft-Gault) 85.1 BUN/Creatinine Ratio 6 (6-20) Glucose Level 85 mg/dL (70-99) Calcium Level 8.5 mg/dL (8.5-10.1) Magnesium Level 2.1 mg/dL (1.8-2.4) Total Bilirubin 0.4 mg/dL (0.2-1.0) Aspartate Amino Transf (AST/SGOT) 16 U/L (15-37) Alanine Aminotransferase (ALT/SGPT) 10 U/L (16-63) Alkaline Phosphatase 61 U/L (46-116) Total Protein 6.8 g/dL (6.4-8.2) Albumin 2.0 g/dL (3.4-5.0) Albumin/Globulin Ratio 0.4 (1.0-1.7) O2 Saturation 97 % (92-99) Arterial Blood pH 7.39 (7.35-7.45) Arterial Blood pCO2 at Patient Temp 37 mmHg (35-46) Arterial Blood pO2 at Patient Temp 97 mmHg (75-108) Arterial Blood HCO3 22 mmol/L (21-28) Arterial Blood Base Excess -3 mmol/L (-3-3) FiO2 40/vent Comment Review of Relevant I have reviewed the following items joel (where applicable) has been applied. Medications: Current Medications Medications (Trade) Dose Ordered Sig/Guy Route PRN Reason Start Time Stop Time Status Last Admin Dose Admin Potassium Bicarbonate (Potassium Effervescent Tablet) 40 meq 1X ONCE PEG 03/31/20 12:00 03/31/20 12:01 DC 03/31/20 12:31 Justifications for Admission Other Justification CARDIAC ARREST ROCIO MOHAN MD Apr 01, 2020 09:56
[2020-04-01] MEDS: CLOPIDOGREL BISULFATE 75 MG TABLET PO SCH (10:04)
[2020-04-01] MEDS: VANCOMYCIN 125 MG/2.5 ML ORAL SOLUTION. PO SCH ×2 (10:04→20:33)
[2020-04-01] MEDS: AMIODARONE HCL 200 MG TABLET. PO SCH (10:04)
[2020-04-01] MEDS: PANTOPRAZOLE IV PUSH 40 MG VIAL. IVP SCH (10:04)
[2020-04-01] MEDS: DOLUTEGRAVIR PO SCH (10:05)
[2020-04-01] MEDS: LAMIVUDINE PO SCH (10:05)
[2020-04-01] MEDS: ABACAVIR PO SCH (10:05)
[2020-04-01] MEDS: ELECTROLYTE (ICU) PROTOCOL. MC SCH (10:05)
--- NOTE | 2020-04-01 10:08 | PDOC ---
PULMONARY PROGRESS NOTES DATE: 04/01/20 TIME: 10:04 Subjective Pt. is on Fi02 40% and PEEP of 5 AC mode extubated 03/26, re-intubated for 03/26--V-Tac Arrest on primacor gtt S/P cardiac cath 03/27/20-- clean Vitals Vital Signs Date Time Temp Pulse Resp B/P (MAP) Pulse Ox O2 Delivery O2 Flow Rate FiO2 04/01/20 10:00 85 20 137/73 (94) 100 Ventilator 04/01/20 09:00 98.9 98.9 Comments Intubated/sedated General: Alert Cardiovascular: S1, S2 Extremities: No Edema Skin: Warm, Dry Labs Laboratory Tests Test 03/31/20 05:30 03/31/20 07:00 03/31/20 17:35 04/01/20 05:00 White Blood Count 8.1 x10^3/uL (4.0-11.0) 10.6 x10^3/uL (4.0-11.0) Red Blood Count 2.81 x10^6/uL (4.30-5.70) 2.86 x10^6/uL (4.30-5.70) Hemoglobin 7.2 g/dL (13.0-17.5) 7.1 g/dL (13.0-17.5) Hematocrit 22.0 % (39.0-53.0) 22.4 % (39.0-53.0) Mean Corpuscular Volume 78 fL (79-100) 79 fL (79-100) Mean Corpuscular Hemoglobin 26 pg (25-35) 25 pg (25-35) Mean Corpuscular Hemoglobin Concent 33 g/dL (31-37) 32 g/dL (31-37) Red Cell Distribution Width 17.9 % (11.5-14.5) 17.8 % (11.5-14.5) Platelet Count 312 x10^3/uL (140-400) 361 x10^3/uL (140-400) Sodium Level 145 mmol/L (136-145) 148 mmol/L (136-145) Potassium Level 3.6 mmol/L (3.5-5.1) 3.6 mmol/L (3.5-5.1) Chloride Level 113 mmol/L (98-107) 111 mmol/L (98-107) Carbon Dioxide Level 21 mmol/L (21-32) 23 mmol/L (21-32) Anion Gap 11 (6-14) 14 (6-14) Blood Urea Nitrogen 7 mg/dL (8-26) 7 mg/dL (8-26) Creatinine 1.1 mg/dL (0.7-1.3) 1.1 mg/dL (0.7-1.3) Estimated GFR (Cockcroft-Gault) 85.1 85.1 Glucose Level 82 mg/dL (70-99) 85 mg/dL (70-99) Calcium Level 8.6 mg/dL (8.5-10.1) 8.5 mg/dL (8.5-10.1) Magnesium Level 2.0 mg/dL (1.8-2.4) 2.1 mg/dL (1.8-2.4) O2 Saturation 97 % (92-99) Arterial Blood pH 7.42 (7.35-7.45) Arterial Blood pCO2 at Patient Temp 32 mmHg (35-46) Arterial Blood pO2 at Patient Temp 103 mmHg (75-108) Arterial Blood HCO3 20 mmol/L (21-28) Arterial Blood Base Excess -4 mmol/L (-3-3) FiO2 40/vent Glucose (Fingerstick) 86 mg/dL (70-99) BUN/Creatinine Ratio 6 (6-20) Total Bilirubin 0.4 mg/dL (0.2-1.0) Aspartate Amino Transf (AST/SGOT) 16 U/L (15-37) Alanine Aminotransferase (ALT/SGPT) 10 U/L (16-63) Alkaline Phosphatase 61 U/L (46-116) Total Protein 6.8 g/dL (6.4-8.2) Albumin 2.0 g/dL (3.4-5.0) Albumin/Globulin Ratio 0.4 (1.0-1.7) Test 04/01/20 07:00 O2 Saturation 97 % (92-99) Arterial Blood pH 7.39 (7.35-7.45) Arterial Blood pCO2 at Patient Temp 37 mmHg (35-46) Arterial Blood pO2 at Patient Temp 97 mmHg (75-108) Arterial Blood HCO3 22 mmol/L (21-28) Arterial Blood Base Excess -3 mmol/L (-3-3) FiO2 40/vent Laboratory Tests Test 03/31/20 17:35 04/01/20 05:00 04/01/20 07:00 Glucose (Fingerstick) 86 mg/dL (70-99) White Blood Count 10.6 x10^3/uL (4.0-11.0) Red Blood Count 2.86 x10^6/uL (4.30-5.70) Hemoglobin 7.1 g/dL (13.0-17.5) Hematocrit 22.4 % (39.0-53.0) Mean Corpuscular Volume 79 fL (79-100) Mean Corpuscular Hemoglobin 25 pg (25-35) Mean Corpuscular Hemoglobin Concent 32 g/dL (31-37) Red Cell Distribution Width 17.8 % (11.5-14.5) Platelet Count 361 x10^3/uL (140-400) Sodium Level 148 mmol/L (136-145) Potassium Level 3.6 mmol/L (3.5-5.1) Chloride Level 111 mmol/L (98-107) Carbon Dioxide Level 23 mmol/L (21-32) Anion Gap 14 (6-14) Blood Urea Nitrogen 7 mg/dL (8-26) Creatinine 1.1 mg/dL (0.7-1.3) Estimated GFR (Cockcroft-Gault) 85.1 BUN/Creatinine Ratio 6 (6-20) Glucose Level 85 mg/dL (70-99) Calcium Level 8.5 mg/dL (8.5-10.1) Magnesium Level 2.1 mg/dL (1.8-2.4) Total Bilirubin 0.4 mg/dL (0.2-1.0) Aspartate Amino Transf (AST/SGOT) 16 U/L (15-37) Alanine Aminotransferase (ALT/SGPT) 10 U/L (16-63) Alkaline Phosphatase 61 U/L (46-116) Total Protein 6.8 g/dL (6.4-8.2) Albumin 2.0 g/dL (3.4-5.0) Albumin/Globulin Ratio 0.4 (1.0-1.7) O2 Saturation 97 % (92-99) Arterial Blood pH 7.39 (7.35-7.45) Arterial Blood pCO2 at Patient Temp 37 mmHg (35-46) Arterial Blood pO2 at Patient Temp 97 mmHg (75-108) Arterial Blood HCO3 22 mmol/L (21-28) Arterial Blood Base Excess -3 mmol/L (-3-3) FiO2 40/vent Medications Active Scripts Medications Dose Route/Sig Max Daily Dose Days Date Category Furosemide 40 Mg Tablet 40 Mg PO DAILY 02/02/20 Rx Tramadol Hcl 50 Mg Tablet 50 Mg PO PRN Q6HRS PRN 6 02/02/20 Rx Metoprolol Succinate ( Xl ) (Metoprolol Succinate) 25 Mg Tab.er.24h 12.5 Mg PO DAILY 02/02/20 Rx Clopidogrel (Clopidogrel Bisulfate) 75 Mg Tablet 75 Mg PO DAILYWBKFT 02/02/20 Rx Lisinopril 10 Mg Tablet 1 Tab PO DAILY 02/02/20 Rx Atorvastatin Calcium 80 Mg Tablet 80 Mg PO QHS 02/02/20 Rx Klor-Con M20 (Potassium Chloride) 20 Meq Tab.er.prt 20 Meq PO TID 01/31/20 Reported Pantoprazole Sodium (Pantoprazole Sodium) 40 Mg Tablet.dr 40 Mg PO BID 01/31/20 Reported Duoneb 0.5-3(2.5) Mg/3 Ml (Albuterol/Ipratropium) 3 Ml Ampul.neb 3 Ml NEB PRN Q6HRS PRN 01/31/20 Reported Acetaminophen 325 Mg Tablet 1 Tab PO PRN Q6HRS PRN 24 01/31/20 Reported Triumeq Tablet (Abacavir/Dolutegravir/Lamivudi) 1 Each Tablet 1 Tab PO DAILY 01/31/20 Reported Gabapentin (Gabapentin) 300 Mg Capsule 100 Mg PO TID 01/31/20 Reported Children's Aspirin (Aspirin) 81 Mg Tab.chew 1 Tab PO DAILY 30 01/31/20 Reported Impression . IMPRESSION: 1. Acute hypoxemic respiratory failure secondary to [id number] cardiopulmonary arrest. extubated 03/26, re-intubated for V-Tac Arrest 2. History of ventricular fibrillation with previous yyv-kz-rmearcin cardiac arrest. 3. History of coronary artery disease, status post percutaneous coronary intervention to the circumflex. 4. History of gastrointestinal bleed. 5. Chronic systolic heart failure. 6. Ischemic cardiomyopathy, ejection fraction 15%. 7. Status post pacemaker implantation. 8. Hypertension. 9. Hypokalemia. 10. Previous kidney injury requiring hemodialysis. 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 12. Human immunodeficiency virus. 13. Polysubstance use. Plan . Continue current AC support, d/w cardiology /family in detail. 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 He is non compliant and as such not the best candidate for AIC. Will likely need Vest. Will plan for weaning /extubatin in am and ask patient about his wishes S/P cath 03/27/20 was clean life vest-- per cardiology Continue empiric antibiotics per infectious disease--zosyn and po vanco Follow cultures,all neg so far Follow GI recs PT/OT//ST DVT/GI prophylaxis Discussed with RN and RT Critical Care Time 35 min NERISSA AGUILAR MD Apr 01, 2020 10:08
[2020-04-01] MEDS: DEXMEDETOMIDINE 400 MCG in IV NORMAL SALINE 100ML 96 ML IV PRN (11:11)
[2020-04-01] MEDS: fentaNYL HIGH DOSE PCA 55 ML IV PRN (11:36)
[2020-04-01] MEDS: PROPOFOL 100 ML IV PRN ×3 (13:00→22:00)
[2020-04-01] MEDS ORDERED: POTASSIUM BICARB 20 MEQ EFFERVESCENT TABLET. PEG ONE (16:15)
--- NOTE | 2020-04-01 20:07 | PDOC ---
PROGRESS NOTES DOS: DATE: 04/01/20 TIME: 20:06 Plan This patient is 54 a year old man with past medical history of multiple medical problems with the out of hospital cardiac arrest, coronary artery disease, status post stent, cardiomyopathy, patient has prior cardiac arrest Patient was at home he was watching television. Patient had difficulty breathing, was unresponsive. 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 will get CT brain to evaluate further for acute intracranial injury, when able to tolerate, prognosis guarded, continue medical management Subjective intubated sedated Objective Vital Signs Date Time Temp Pulse Resp B/P (MAP) Pulse Ox O2 Delivery O2 Flow Rate FiO2 04/01/20 18:00 70 20 136/77 (96) 100 Ventilator 04/01/20 16:00 99.9 99.9 04/01/20 11:36 15.0 Intake and Output 04/01/20 07:00 Intake Total 3265.82 ml Output Total 3645 ml Balance -379.18 ml Intake Oral 0 ml IV Total 2500.82 ml Tube Feeding 665 ml Other 100 ml Output Urine Total 3130 ml Gastric Drainage Total 515 ml PHYSICAL EXAM PHYSICAL EXAMINATION: General: intubated sedated Meg HEENT: Normal cephalic and non traumatic. Neck: No lymphadenopathy. No resistance. Cardiac: S1, S2 Pulmonary: On vent. Abdomen: Bowel sounds are normal. NEUROLOGICAL EXAMINATION: On vent. Unresponsiveness. Sedation Pupils 1 mm, decreased reaction to light stimuli.. EOMI not elicited. CN: No acute findings. Neck: No resistance Muscle Tone: decreased. Muscle Strength: minimal movements noted to stimuli DTR: 0-1 Sensory: Minimal response to pain stimuli. Plantar Reflex: No response bilaterally Cerebellar Signs: Not able Gait: Not able Review of Relevant I have reviewed the following items joel (where applicable) has been applied. Labs Laboratory Tests Test 03/31/20 05:30 03/31/20 07:00 03/31/20 17:35 04/01/20 05:00 White Blood Count 8.1 x10^3/uL (4.0-11.0) 10.6 x10^3/uL (4.0-11.0) Red Blood Count 2.81 x10^6/uL (4.30-5.70) 2.86 x10^6/uL (4.30-5.70) Hemoglobin 7.2 g/dL (13.0-17.5) 7.1 g/dL (13.0-17.5) Hematocrit 22.0 % (39.0-53.0) 22.4 % (39.0-53.0) Mean Corpuscular Volume 78 fL (79-100) 79 fL (79-100) Mean Corpuscular Hemoglobin 26 pg (25-35) 25 pg (25-35) Mean Corpuscular Hemoglobin Concent 33 g/dL (31-37) 32 g/dL (31-37) Red Cell Distribution Width 17.9 % (11.5-14.5) 17.8 % (11.5-14.5) Platelet Count 312 x10^3/uL (140-400) 361 x10^3/uL (140-400) Sodium Level 145 mmol/L (136-145) 148 mmol/L (136-145) Potassium Level 3.6 mmol/L (3.5-5.1) 3.6 mmol/L (3.5-5.1) Chloride Level 113 mmol/L (98-107) 111 mmol/L (98-107) Carbon Dioxide Level 21 mmol/L (21-32) 23 mmol/L (21-32) Anion Gap 11 (6-14) 14 (6-14) Blood Urea Nitrogen 7 mg/dL (8-26) 7 mg/dL (8-26) Creatinine 1.1 mg/dL (0.7-1.3) 1.1 mg/dL (0.7-1.3) Estimated GFR (Cockcroft-Gault) 85.1 85.1 Glucose Level 82 mg/dL (70-99) 85 mg/dL (70-99) Calcium Level 8.6 mg/dL (8.5-10.1) 8.5 mg/dL (8.5-10.1) Magnesium Level 2.0 mg/dL (1.8-2.4) 2.1 mg/dL (1.8-2.4) O2 Saturation 97 % (92-99) Arterial Blood pH 7.42 (7.35-7.45) Arterial Blood pCO2 at Patient Temp 32 mmHg (35-46) Arterial Blood pO2 at Patient Temp 103 mmHg (75-108) Arterial Blood HCO3 20 mmol/L (21-28) Arterial Blood Base Excess -4 mmol/L (-3-3) FiO2 40/vent Glucose (Fingerstick) 86 mg/dL (70-99) BUN/Creatinine Ratio 6 (6-20) Total Bilirubin 0.4 mg/dL (0.2-1.0) Aspartate Amino Transf (AST/SGOT) 16 U/L (15-37) Alanine Aminotransferase (ALT/SGPT) 10 U/L (16-63) Alkaline Phosphatase 61 U/L (46-116) Total Protein 6.8 g/dL (6.4-8.2) Albumin 2.0 g/dL (3.4-5.0) Albumin/Globulin Ratio 0.4 (1.0-1.7) Test 04/01/20 07:00 O2 Saturation 97 % (92-99) Arterial Blood pH 7.39 (7.35-7.45) Arterial Blood pCO2 at Patient Temp 37 mmHg (35-46) Arterial Blood pO2 at Patient Temp 97 mmHg (75-108) Arterial Blood HCO3 22 mmol/L (21-28) Arterial Blood Base Excess -3 mmol/L (-3-3) FiO2 40/vent Laboratory Tests Test 04/01/20 05:00 04/01/20 07:00 White Blood Count 10.6 x10^3/uL (4.0-11.0) Red Blood Count 2.86 x10^6/uL (4.30-5.70) Hemoglobin 7.1 g/dL (13.0-17.5) Hematocrit 22.4 % (39.0-53.0) Mean Corpuscular Volume 79 fL (79-100) Mean Corpuscular Hemoglobin 25 pg (25-35) Mean Corpuscular Hemoglobin Concent 32 g/dL (31-37) Red Cell Distribution Width 17.8 % (11.5-14.5) Platelet Count 361 x10^3/uL (140-400) Sodium Level 148 mmol/L (136-145) Potassium Level 3.6 mmol/L (3.5-5.1) Chloride Level 111 mmol/L (98-107) Carbon Dioxide Level 23 mmol/L (21-32) Anion Gap 14 (6-14) Blood Urea Nitrogen 7 mg/dL (8-26) Creatinine 1.1 mg/dL (0.7-1.3) Estimated GFR (Cockcroft-Gault) 85.1 BUN/Creatinine Ratio 6 (6-20) Glucose Level 85 mg/dL (70-99) Calcium Level 8.5 mg/dL (8.5-10.1) Magnesium Level 2.1 mg/dL (1.8-2.4) Total Bilirubin 0.4 mg/dL (0.2-1.0) Aspartate Amino Transf (AST/SGOT) 16 U/L (15-37) Alanine Aminotransferase (ALT/SGPT) 10 U/L (16-63) Alkaline Phosphatase 61 U/L (46-116) Total Protein 6.8 g/dL (6.4-8.2) Albumin 2.0 g/dL (3.4-5.0) Albumin/Globulin Ratio 0.4 (1.0-1.7) O2 Saturation 97 % (92-99) Arterial Blood pH 7.39 (7.35-7.45) Arterial Blood pCO2 at Patient Temp 37 mmHg (35-46) Arterial Blood pO2 at Patient Temp 97 mmHg (75-108) Arterial Blood HCO3 22 mmol/L (21-28) Arterial Blood Base Excess -3 mmol/L (-3-3) FiO2 40/vent Microbiology 03/26/20 Urine Culture - Final, Complete 03/21/20 Gram Stain Evaluation - Final, Complete 03/21/20 Respiratory Culture - Final, Complete 03/20/20 Blood Culture - Final, Complete NO GROWTH AFTER 5 DAYS Medications Current Medications Norepinephrine Bitartrate 8 mg/ Dextrose 258 ml @ 18.247 mls/ hr CONT PRN IV PER PROTOCOL Last administered on 03/28/20at 19:12; Start 03/20/20 at 04:15 Dopamine HCl/ Dextrose 250 ml @ 17.681 mls/ hr CONT PRN IV SEE I/O RECORD; Start 03/20/20 at 04:30 Heparin Sodium/ Dextrose 250 ml @ 0 mls/hr CONT PRN IV PER PROTOCOL Last administered on 03/21/20at 22:15; Start 03/20/20 at 04:30; Stop 03/22/20 at 10:15; Status DC Heparin Sodium (Porcine) (Heparin Sodium) 2,400 unit PRN Q6HRS PRN IV FOR UFH LEVEL LESS THAN 0.2 Last administered on 03/21/20at 14:17; Start 03/20/20 at 04:30; Stop 03/22/20 at 10:15; Status DC Fentanyl Citrate 30 ml @ 0 mls/hr CONT PRN IV SEE PROTOCOL Last administered on 03/23/20at 06:19; Start 03/20/20 at 04:45; Stop 03/23/20 at 19:11; Status DC Lorazepam (Ativan Inj) 1 mg PRN Q1HR PRN IV SEE COMMENTS Last administered on 03/26/20at 14:30; Start 03/20/20 at 04:45; Stop 03/26/20 at 15:29; Status DC Fentanyl Citrate (Fentanyl 2ml Vial) 25 mcg PRN Q1HR PRN IV SEE COMMENTS; Start 03/20/20 at 04:45; Stop 03/26/20 at 15:29; Status DC Fentanyl Citrate (Fentanyl 2ml Vial) 50 mcg PRN Q1HR PRN IV SEE COMMENTS; Start 03/20/20 at 04:45; Stop 03/26/20 at 15:29; Status DC Chlorhexidine Gluconate (Peridex) 15 ml BID MM ; Start 03/20/20 at 09:00; Stop 03/20/20 at 07:24; Status DC Famotidine (Pepcid Vial) 20 mg BID IVP Last administered on 03/20/20at 08:07; Start 03/20/20 at 09:00; Stop 03/20/20 at 12:52; Status DC Morphine Sulfate (Morphine Sulfate) 2 mg PRN Q1HR PRN IV SEE COMMENTS.; Start 03/20/20 at 04:45; Stop 03/26/20 at 04:43; Status DC Morphine Sulfate (Morphine Sulfate) 4 mg PRN Q1HR PRN IV SEE COMMENTS.; Start 03/20/20 at 04:45; Stop 03/26/20 at 04:43; Status DC Midazolam HCl 100 ml @ 0 mls/hr CONT PRN IV SEE PROTOCOL Last administered on 03/26/20at 02:42; Start 03/20/20 at 04:45; Stop 03/26/20 at 15:29; Status DC Docusate Sodium (Colace Solution) 100 mg BID NG Last administered on 03/26/20 08:35; Start 03/20/20 at 09:00; Stop 03/26/20 at 15:28; Status DC Sodium Chloride 1,000 ml @ 55 mls/hr [id number] IV Last administered on 04/01/20 03:34; Start 03/20/20 at 06:30 Acetaminophen (Tylenol) 650 mg PRN Q6HRS PRN PEG MILD PAIN / TEMP > 100.3'F Last administered on 03/27/20 20:51; Start 03/20/20 at 09:00 Piperacillin Sod/ Tazobactam Sod (Zosyn Per Pharmacy) 1 each PRN DAILY PRN MC SEE COMMENTS; Start 03/20/20 at 09:30 Piperacillin Sod/ Tazobactam Sod 3.375 gm/Sodium Chloride 50 ml @ 100 mls/hr Q6HRS IV Last administered on 04/01/20 17:56; Start 03/20/20 at 10:00 Magnesium Sulfate 50 ml @ 25 mls/hr 1X ONCE IV Last administered on 03/20/20at 10:21; Start 03/20/20 at 09:45; Stop 03/20/20 at 11:44; Status DC Clopidogrel Bisulfate (Plavix) 75 mg DAILYWBKFT PO Last administered on 04/01/20 10:04; Start 03/20/20 at 12:00 Atorvastatin Calcium (Lipitor) 80 mg QHS PO Last administered on 03/31/20 21:36; Start 03/20/20 at 21:00 Ondansetron HCl (Zofran) 4 mg PRN Q6HRS PRN IVP NAUSEA/VOMITING Last administered on 03/26/20 18:17; Start 03/20/20 at 10:30 Famotidine (Pepcid Vial) 20 mg BID IVP ; Start 03/20/20 at 11:00; Stop 03/20/20 at 12:35; Status DC Info (Icu Electrolyte Protocol) 1 ea DAILY MC Last administered on 04/01/20 10:05; Start 03/21/20 at 09:00 Sodium Chloride (Normal Saline Flush) 3 ml QSHIFT PRN IV AFTER MEDS AND BLOOD DRAWS; Start 03/20/20 at 10:30 Pantoprazole Sodium (PROTONIX VIAL for IV PUSH) 40 mg DAILYAC IVP Last a dministered on 04/01/20at 10:04; Start 03/20/20 at 12:30 Potassium Bicarbonate (Potassium Effervescent Tablet) 40 meq 1X ONCE PEG Last administered on 03/20/20at 14:47; Start 03/20/20 at 14:00; Stop 03/20/20 at 14:20; Status DC Non-Formulary Medication (ABACAVIR/ DOLUTEGRAVIR/ LAMIVUDINE (Triumeq) tablet) 1 ea DAILY PO Last administered on 04/01/20 10:05; Start 03/20/20 at 17:00 Vancomycin HCl (Vancomycin Oral Solution) 125 mg BID PO Last administered on 04/01/20at 10:04; Start 03/20/20 at 21:30 Linezolid/Dextrose 300 ml @ 300 mls/hr Q12HR IV Last administered on 03/28/20at 08:19; Start 03/21/20 at 09:00; Stop 03/28/20 at 08:39; Status DC Furosemide (Lasix) 40 mg DAILY IVP Last administered on 03/31/20at 08:40; Start 03/22/20 at 11:00 Potassium Chloride/Water 100 ml @ 50 mls/hr 1X ONCE IV Last administered on 03/22/20at 12:58; Start 03/22/20 at 10:30; Stop 03/22/20 at 12:29; Status DC Fentanyl Citrate 55 ml @ 0 mls/hr CONT PRN IV SEE PROTOCOL Last administered on 04/01/20at 11:36; Start 03/23/20 at 19:15 Dexmedetomidine HCl 400 mcg/ Sodium Chloride 100 ml @ 0 mls/hr CONT PRN IV PER PROTOCOL Last administered on 03/24/20at 03:33; Start 03/23/20 at 21:00; Stop 03/24/20 at 08:52; Status DC Sodium Chloride 500 ml @ 500 mls/hr 1X PRN PRN IV SEE COMMENTS; Start 03/23/20 at 21:00 Atropine Sulfate (ATROPINE 0.5mg SYRINGE) 0.5 mg PRN Q5MIN PRN IV SEE COMMENTS; Start 03/23/20 at 21:00 Haloperidol Lactate (Haldol Inj) 5 mg PRN Q6HRS PRN IVP AGITATION; Start 03/23/20 at 21:00; Stop 03/24/20 at 08:52; Status DC Propofol 100 ml @ 2.748 mls/ hr CONT PRN IV PER PROTOCOL Last administered on 03/25/20at 01:17; Start 03/24/20 at 09:00; Stop 03/26/20 at 15:31; Status DC Potassium Chloride/Water 100 ml @ 100 mls/hr Q1H IV Last administered on 03/25/20at 19:02; Start 03/25/20 at 10:00; Stop 03/25/20 at 17:59; Status DC Potassium Chloride/Water 100 ml @ 100 mls/hr Q1H IV ; Start 03/25/20 at 15:00; Stop 03/25/20 at 13:59; Status DC Potassium Bicarbonate (Potassium Effervescent Tablet) 40 meq 1X ONCE PO Last administered on 03/26/20at 08:36; Start 03/26/20 at 08:15; Stop 03/26/20 at 08:22; Status DC Propofol 100 ml @ As Directed STK-MED ONCE IV ; Start 03/26/20 at 19:07; Stop 03/26/20 at 19:07; Status DC Fentanyl Citrate 30 ml @ 0 mls/hr CONT PRN IV SEE PROTOCOL; Start 03/26/20 at 19:15; Status Cancel Propofol 100 ml @ 0 mls/hr CONT PRN IV PER PROTOCOL; Start 03/26/20 at 19:15; Status Cancel Fentanyl Citrate (Fentanyl 2ml Vial) 25 mcg PRN Q1HR PRN IV SEE COMMENTS; Start 03/26/20 at 19:15 Fentanyl Citrate (Fentanyl 2ml Vial) 50 mcg PRN Q1HR PRN IV SEE COMMENTS; Start 03/26/20 at 19:15 Chlorhexidine Gluconate (Peridex) 15 ml BID MM Last administered on 03/27/20at 20:51; Start 03/26/20 at 21:00; Stop 03/28/20 at 11:44; Status DC Morphine Sulfate (Morphine Sulfate) 2 mg PRN Q1HR PRN IV SEE COMMENTS.; Start 03/26/20 at 19:15; Status Cancel Morphine Sulfate (Morphine Sulfate) 2 mg PRN Q1HR PRN IV SEE COMMENTS.; Start 03/26/20 at 19:15; Stop 03/28/20 at 22:35; Status DC Morphine Sulfate (Morphine Sulfate) 4 mg PRN Q1HR PRN IV SEE COMMENTS.; Start 03/26/20 at 19:15; Stop 03/28/20 at 22:35; Status DC Olanzapine (ZyPREXA ZYDIS) 5 mg PRN Q4HRS PRN PO AGITATION, DELIRIUM; Start 03/26/20 at 19:15 Labetalol HCl (Normodyne Iv Push) 10 mg PRN Q2HR PRN IVP HYPERTENSION; Start 03/26/20 at 19:15 Fentanyl Citrate 30 ml @ 0 mls/hr CONT PRN IV SEE PROTOCOL; Start 03/26/20 at 19:15; Status UNV Propofol 100 ml @ 0 mls/hr CONT PRN IV PER PROTOCOL Last administered on 04/01/20at 17:54; Start 03/26/20 at 19:15 Midazolam HCl 100 ml @ 0 mls/hr CONT PRN IV SEE PROTOCOL Last administered on 04/01/20at 12:21; Start 03/26/20 at 19:15 Amiodarone HCl 150 mg/Dextrose 103 ml @ 618 mls/hr 1X ONCE IV Last administered on 03/26/20at 19:44; Start 03/26/20 at 19:45; Stop 03/26/20 at 19:54; Status DC Amiodarone HCl 450 mg/Dextrose 259 ml @ 0 mls/hr 1X ONCE IV Last administered on 03/26/20at 19:45; Start 03/26/20 at 19:45; Stop 03/26/20 at 19:46; Status DC Potassium Chloride/Water 100 ml @ 100 mls/hr Q1H IV Last administered on 03/27/20at 00:44; Start 03/26/20 at 21:00; Stop 03/27/20 at 00:59; Status DC Sodium Chloride 500 ml @ 500 mls/hr 1X ONCE IV Last administered on 03/26/20at 21:09; Start 03/26/20 at 21:15; Stop 03/26/20 at 22:14; Status DC Magnesium Sulfate 100 ml @ 50 mls/hr DAILY IV Last administered on 03/26/20at 22:23; Start 03/26/20 at 22:00; Stop 03/29/20 at 03:54; Status DC Etomidate (Amidate) 20 mg STK-MED ONCE IV ; Start 03/26/20 at 23:34; Stop 03/26/20 at 23:35; Status DC Succinylcholine Chloride (Anectine) 200 mg STK-MED ONCE .ROUTE ; Start 03/26/20 at 23:34; Stop 03/26/20 at 23:35; Status DC Lidocaine HCl (Lidocaine HCl 2% Abboject) 80 mg 1X ONCE IV Last administered on 03/27/20at 01:50; Start 03/27/20 at 02:00; Stop 03/27/20 at 02:01; Status DC Potassium Chloride/Water 100 ml @ 100 mls/hr Q1H IV Last administered on 03/27/20at 07:24; Start 03/27/20 at 02:00; Stop 03/27/20 at 05:59; Status DC Dexmedetomidine HCl 400 mcg/ Sodium Chloride 100 ml @ 0 mls/hr CONT PRN IV PER PROTOCOL Last administered on 04/01/20at 11:11; Start 03/27/20 at 01:45 Sodium Chloride 500 ml @ 500 mls/hr 1X PRN PRN IV SEE COMMENTS; Start 03/27/20 at 01:45; Status Cancel Atropine Sulfate (ATROPINE 0.5mg SYRINGE) 0.5 mg PRN Q5MIN PRN IV SEE COMMENTS; Start 03/27/20 at 01:45; Stop 03/27/20 at 16:31; Status DC Amiodarone HCl 450 mg/Dextrose 259 ml @ 16.7 mls/hr CONT PRN IV SEE I/O RECORD Last administered on 03/27/20at 18:15; Start 03/27/20 at 03:00; Stop 03/27/20 at 18:16; Status DC Lidocaine HCl (Lidocaine 1% 20ml Vial) 20 ml STK-MED ONCE .ROUTE ; Start 03/27/20 at 09:23; Stop 03/27/20 at 09:23; Status DC Heparin Sodium/ Sodium Chloride 1,000 ml @ As Directed STK-MED ONCE .ROUTE ; Start 03/27/20 at 09:23; Stop 03/27/20 at 09:24; Status DC Iodixanol (Visipaque 320) 100 ml STK-MED ONCE .ROUTE ; Start 03/27/20 at 09:23; Stop 03/27/20 at 09:24; Status DC Heparin Sodium/ Sodium Chloride (HEPARIN for ARTERIAL LINE FLUSH) 1,000 unit 1X ONCE IART Last administered on 03/27/20at 10:00; Start 03/27/20 at 10:00; Stop 03/27/20 at 10:01; Status DC Heparin Sodium/ Sodium Chloride (HEPARIN for ARTERIAL LINE FLUSH) 1,000 unit 1X ONCE IART Last administered on 03/27/20at 10:00; Start 03/27/20 at 10:00; Stop 03/27/20 at 10:01; Status DC Iodixanol (Visipaque 320) 100 ml 1X ONCE IART Last administered on 03/27/20at 11:05; Start 03/27/20 at 10:00; Stop 03/27/20 at 10:01; Status DC Lidocaine HCl (Lidocaine 1% 20ml Vial) 20 ml 1X ONCE INJ Last administered on 03/27/20at 10:41; Start 03/27/20 at 10:00; Stop 03/27/20 at 10:01; Status DC Info (CONTRAST GIVEN -- Rx MONITORING) 1 each PRN DAILY PRN MC SEE COMMENTS; Start 03/27/20 at 10:00; Stop 03/29/20 at 09:59; Status DC Milrinone Lactate/ Dextrose 100 ml @ 10.103 mls/ hr CONT PRN IV SEE I/O RECORD Last administered on 03/30/20at 09:19; Start 03/27/20 at 11:30; Stop 03/30/20 at 15:28; Status DC Epinephrine HCl (EPINEPHrine SYRINGE) 1 mg STK-MED ONCE .ROUTE ; Start 03/26/20 at 21:00; Stop 03/27/20 at 19:23; Status DC Sodium Bicarbonate (Sodium Bicarb Adult 8.4% Syr) 50 meq STK-MED ONCE .ROUTE ; Start 03/26/20 at 21:00; Stop 03/27/20 at 19:23; Status DC Potassium Chloride/Water 100 ml @ 100 mls/hr Q1H IV Last administered on 03/28/20at 08:18; Start 03/28/20 at 06:00; Stop 03/28/20 at 07:59; Status DC Amiodarone HCl (Cordarone) 200 mg BID PO Last administered on 03/29/20at 07:46; Start 03/28/20 at 21:00; Stop 03/29/20 at 10:29; Status DC Lidocaine HCl (Lidocaine HCl 2% Abboject) 80 mg 1X ONCE IV Last administered on 03/28/20at 19:55; Start 03/28/20 at 20:15; Stop 03/28/20 at 20:16; Status DC Amiodarone HCl (Cordarone) 200 mg 1X ONCE PO Last administered on 03/29/20at 13:55; Start 03/29/20 at 13:45; Stop 03/29/20 at 13:50; Status DC Amiodarone HCl (Cordarone) 400 mg DAILY PO Last administered on 04/01/20at 10:04; Start 03/30/20 at 09:00 Magnesium Sulfate 50 ml @ 25 mls/hr 1X ONCE IV Last administered on 03/30/20at 09:55; Start 03/30/20 at 09:45; Stop 03/30/20 at 11:44; Status DC Potassium Bicarbonate (Potassium Effervescent Tablet) 40 meq 1X ONCE PEG Last administered on 03/30/20at 09:54; Start 03/30/20 at 09:45; Stop 03/30/20 at 09:53; Status DC Potassium Bicarbonate (Potassium Effervescent Tablet) 40 meq 1X ONCE PO Last administered on 03/30/20at 13:40; Start 03/30/20 at 14:15; Stop 03/30/20 at 14:16; Status DC Epinephrine HCl (EPINEPHrine SYRINGE) 1 mg STK-MED ONCE .ROUTE ; Start 03/29/20 at 12:00; Stop 03/30/20 at 13:02; Status DC Lidocaine HCl (Lidocaine HCl 2% Abboject) 100 mg STK-MED ONCE .ROUTE ; Start 03/29/20 at 12:00; Stop 03/30/20 at 13:02; Status DC Milrinone Lactate/ Dextrose 100 ml @ 6.735 mls/ hr CONT PRN IV SEE I/O RECORD Last administered on 04/01/20at 03:34; Start 03/30/20 at 15:30 Magnesium Sulfate 50 ml @ 25 mls/hr 1X ONCE IV Last administered on 03/31/20at 08:38; Start 03/31/20 at 08:30; Stop 03/31/20 at 10:29; Status DC Potassium Bicarbonate (Potassium Effervescent Tablet) 40 meq 1X ONCE PEG Last administered on 03/31/20at 08:37; Start 03/31/20 at 08:00; Stop 03/31/20 at 08:01; Status DC Potassium Bicarbonate (Potassium Effervescent Tablet) 40 meq 1X ONCE PEG Last administered on 03/31/20at 12:31; Start 03/31/20 at 12:00; Stop 03/31/20 at 12:01; Status DC Potassium Bicarbonate (Potassium Effervescent Tablet) 80 meq 1X ONCE PO Last administered on 04/01/20at 10:05; Start 04/01/20 at 09:45; Stop 04/01/20 at 09:46; Status DC Potassium Bicarbonate (Potassium Effervescent Tablet) 20 meq 1X ONCE PEG Last administered on 04/01/20at 16:25; Start 04/01/20 at 16:15; Stop 04/01/20 at 16:16; Status DC Active Scripts Active Furosemide 40 Mg Tablet 40 Mg PO DAILY 90 Days Tramadol Hcl 50 Mg Tablet 50 Mg PO PRN Q6HRS PRN 6 Days Metoprolol Succinate ( Xl ) (Metoprolol Succinate) 25 Mg Tab.er.24h 12.5 Mg PO DAILY 90 Days Clopidogrel (Clopidogrel Bisulfate) 75 Mg Tablet 75 Mg PO [id number] 90 Days Lisinopril 10 Mg Tablet 1 Tab PO DAILY 90 Days Atorvastatin Calcium 80 Mg Tablet 80 Mg PO QHS 90 Days Reported Klor-Con M20 (Potassium Chloride) 20 Meq Tab.er.prt 20 Meq PO TID Pantoprazole Sodium (Pantoprazole Sodium) 40 Mg Tablet.dr 40 Mg PO BID Duoneb 0.5-3(2.5) Mg/3 Ml (Albuterol/Ipratropium) 3 Ml Ampul.neb 3 Ml NEB PRN Q6HRS PRN Acetaminophen 325 Mg Tablet 1 Tab PO PRN Q6HRS PRN 24 Days Triumeq Tablet (Abacavir/Dolutegravir/Lamivudi) 1 Each Tablet 1 Tab PO DAILY 30 Days Gabapentin (Gabapentin) 300 Mg Capsule 100 Mg PO TID Children's Aspirin (Aspirin) 81 Mg Tab.chew 1 Tab PO DAILY 30 Days Vitals/I & O Vital Sign - Last 24 Hours 03/31/20 03/31/20 03/31/20 03/31/20 20:10 21:00 22:00 23:00 Pulse 88 82 90 Resp 20 20 20 B/P (MAP) 101/45 (63) 149/78 (101) Pulse Ox 100 100 100 100 O2 Delivery Ventilator Ventilator Ventilator Ventilator 04/01/20 04/01/20 04/01/20 04/01/20 00:00 00:00 00:21 01:00 Temp 98.5 98.5 Pulse 90 82 Resp 20 20 B/P (MAP) 111/59 (76) 104/62 (76) Pulse Ox 100 100 100 O2 Delivery Mechanical Ventilator Ventilator Ventilator Ventilator 04/01/20 04/01/20 04/01/20 04/01/20 02:00 03:01 04:00 04:00 Temp 99.1 99.1 Pulse 82 80 84 Resp 20 20 20 B/P (MAP) 118/55 (76) 103/54 (70) 108/38 (61) Pulse Ox 100 100 98 O2 Delivery Ventilator Ventilator Ventilator Mechanical Ventilator 04/01/20 04/01/20 04/01/20 04/01/20 05:00 05:05 06:00 07:00 Pulse 86 88 87 Resp 20 20 20 B/P (MAP) 110/47 (68) 118/53 (74) 135/62 (86) Pulse Ox 100 100 100 100 O2 Delivery Ventilator Ventilator Ventilator Ventilator 04/01/20 04/01/20 04/01/20 04/01/20 07:02 07:54 08:00 09:00 Temp 98.9 98.9 Pulse 82 88 Resp 20 20 B/P (MAP) 96/45 (62) 117/52 (73) Pulse Ox 100 100 100 O2 Delivery Ventilator Mechanical Ventilator Ventilator Ventilator 04/01/20 04/01/20 04/01/20 04/01/20 10:00 10:04 11:00 11:14 Pulse 85 85 71 Resp 20 20 B/P (MAP) 137/73 (94) 137/73 92/40 (57) Pulse Ox 100 100 100 O2 Delivery Ventilator Ventilator Ventilator 04/01/20 04/01/20 04/01/20 04/01/20 11:36 12:00 12:00 12:28 Temp 98.3 98.3 Pulse 76 Resp 20 20 B/P (MAP) 140/99 (113) Pulse Ox 100 100 100 O2 Delivery Mechanical Ventilator Ventilator Ventilator O2 Flow Rate 15.0 04/01/20 04/01/20 04/01/20 04/01/20 13:00 14:00 15:00 15:03 Pulse 72 82 84 Resp 20 20 20 B/P (MAP) 146/81 (102) 105/72 (83) 125/67 (86) Pulse Ox 100 100 100 100 O2 Delivery Ventilator Ventilator Ventilator Ventilator 04/01/20 04/01/20 04/01/20 04/01/20 16:00 16:00 17:00 18:00 Temp 99.9 99.9 Pulse 80 77 70 Resp 20 20 20 B/P (MAP) 117/66 (83) 103/64 (77) 136/77 (96) Pulse Ox 100 100 100 O2 Delivery Ventilator Mechanical Ventilator Ventilator Ventilator Intake and Output 03/31/20 03/31/20 04/01/20 15:00 23:00 07:00 Intake Total 330 ml 1199.82 ml 1736 ml Output Total 1995 ml 975 ml 675 ml Balance -1665 ml 224.82 ml 1061 ml Justicifation of Admission Dx: Justifications for Admission: Justification of Admission Dx: Yes NERISSA PONCE MD Apr 01, 2020 20:07
[2020-04-01] MEDS: ATORVASTATIN CALCIUM 40 MG TABLET. PO SCH (20:32)
[2020-04-02] VITALS (27 sets, daily range): BP systolic 83–203; BP diastolic 59–109
[2020-04-02] MEDS: IV NORMAL SALINE 1000ML BAG 1,000 ML IV SCH ×2 (00:08→19:36)
[2020-04-02] MEDS: PROPOFOL 100 ML IV PRN ×5 (02:03→20:57)
[2020-04-02] MEDS: PIPERACILLIN/TAZOBACTAM 3.375 GM in IV NORMAL SALINE 50ML 50 ML IV SCH ×4 (05:06→23:29)
[2020-04-02 06:03] LABS: ALBUMIN 2.1 g/dL (3.4-5.0); ALBUMIN/GLOBULIN RATIO 0.4 (1.0-1.7); CALCIUM 8.5 mg/dL (8.5-10.1); GFR 94.9; MAGNESIUM 1.8 mg/dL (1.8-2.4); PHOSPHORUS 4.1 mg/dL (2.6-4.7); POTASSIUM 3.3 mmol/L (3.5-5.1); TOTAL BILIRUBIN 0.3 mg/dL (0.2-1.0); TOTAL PROTEIN 6.9 g/dL (6.4-8.2)
[2020-04-02 06:47] LABS: HEMOGLOBIN 7.3 g/dL (13.0-17.5); RED BLOOD COUNT 2.95 x10^6/uL (4.30-5.70); RED CELL DISTRIBUTION WIDTH 18.3 % (11.5-14.5); WHITE BLOOD COUNT 9.1 x10^3/uL (4.0-11.0)
--- NOTE | 2020-04-02 07:09 | PDOC ---
Infectious Disease Note Subjective: Subjective Patient intubated/sedated Vital Signs: Vital Signs Vital Signs Date Time Temp Pulse Resp B/P (MAP) Pulse Ox O2 Delivery O2 Flow Rate FiO2 04/02/20 07:00 77 20 191/88 (122) 99 Ventilator 04/02/20 04:00 97.9 97.9 04/01/20 11:36 15.0 Physical Exam: PHYSICAL EXAM GENERAL: Intubated, sedated. HEENT: Conjunctival suffusion. Pupils equal, reactive. ETT OGT present. NECK: Supple. LUNGS: Clear anteriorly. HEART: S1, S2, tachycardia. ABDOMEN: Obese, mildly distended. Bowel sounds present. EXTREMITIES: No edema or cyanosis. DERMATOLOGIC: Warm and dry. No generalized rash. NEUROLOGIC: Unable to assess. Medications: Inpatient Meds: Current Medications Medications (Trade) Dose Ordered Sig/Guy Start Time Stop Time Status Last Admin Dose Admin Acetaminophen (Tylenol) 650 mg PRN Q6HRS PRN 03/20/20 09:00 03/27/20 20:51 650 MG Amiodarone HCl (Cordarone) 400 mg DAILY 03/30/20 09:00 04/01/20 10:04 400 MG Amiodarone HCl 150 mg/Dextrose 103 ml @ 618 mls/hr 1X ONCE 03/26/20 19:45 03/26/20 19:54 DC 03/26/20 19:44 618 MLS/HR Amiodarone HCl 450 mg/Dextrose 259 ml @ 16.7 mls/hr CONT PRN 03/27/20 03:00 03/27/20 18:16 DC 03/27/20 18:15 16.7 MLS/HR Atorvastatin Calcium (Lipitor) 80 mg QHS 03/20/20 21:00 04/01/20 20:32 80 MG Atropine Sulfate (ATROPINE 0.5mg SYRINGE) 0.5 mg PRN Q5MIN PRN 03/27/20 01:45 03/27/20 16:31 DC Chlorhexidine Gluconate (Peridex) 15 ml BID 03/26/20 21:00 03/28/20 11:44 DC 03/27/20 20:51 15 ML Clopidogrel Bisulfate (Plavix) 75 mg [id number] 03/20/20 12:00 04/01/20 10:04 75 MG Dexmedetomidine HCl 400 mcg/ Sodium Chloride 100 ml @ 0 mls/hr CONT PRN 03/27/20 01:45 04/01/20 11:11 9 MLS/HR Docusate Sodium (Colace Solution) 100 mg BID 03/20/20 09:00 03/26/20 15:28 DC 03/26/20 08:35 100 MG Dopamine HCl/ Dextrose 250 ml @ 17.681 mls/ hr CONT PRN 03/20/20 04:30 Epinephrine HCl (EPINEPHrine SYRINGE) 1 mg STK-MED ONCE 03/29/20 12:00 03/30/20 13:02 DC Etomidate (Amidate) 20 mg STK-MED ONCE 03/26/20 23:34 03/26/20 23:35 DC Famotidine (Pepcid Vial) 20 mg BID 03/20/20 11:00 03/20/20 12:35 DC Fentanyl Citrate 30 ml @ 0 mls/hr CONT PRN 03/26/20 19:15 UNV Fentanyl Citrate (Fentanyl 2ml Vial) 50 mcg PRN Q1HR PRN 03/26/20 19:15 Furosemide (Lasix) 40 mg DAILY 03/22/20 11:00 03/31/20 08:40 40 MG Haloperidol Lactate (Haldol Inj) 5 mg PRN Q6HRS PRN 03/23/20 21:00 03/24/20 08:52 DC Heparin Sodium (Porcine) (Heparin Sodium) 2,400 unit PRN Q6HRS PRN 03/20/20 04:30 03/22/20 10:15 DC 03/21/20 14:17 2,400 UNIT Heparin Sodium/ Dextrose 250 ml @ 0 mls/hr CONT PRN 03/20/20 04:30 03/22/20 10:15 DC 03/21/20 22:15 19.8 MLS/HR Heparin Sodium/ Sodium Chloride (HEPARIN for ARTERIAL LINE FLUSH) 1,000 unit 1X ONCE 03/27/20 10:00 03/27/20 10:01 DC 03/27/20 10:00 1,000 UNIT Info (CONTRAST GIVEN -- Rx MONITORING) 1 each PRN DAILY PRN 03/27/20 10:00 03/29/20 09:59 DC Info (Icu Electrolyte Protocol) 1 ea DAILY 03/21/20 09:00 04/01/20 10:05 1 EA Iodixanol (Visipaque 320) 100 ml 1X ONCE 03/27/20 10:00 03/27/20 10:01 DC 03/27/20 11:05 107 ML Labetalol HCl (Normodyne Iv Push) 10 mg PRN Q2HR PRN 03/26/20 19:15 Lidocaine HCl (Lidocaine 1% 20ml Vial) 20 ml 1X ONCE 03/27/20 10:00 03/27/20 10:01 DC 03/27/20 10:41 13 ML Lidocaine HCl (Lidocaine HCl 2% Abboject) 100 mg STK-MED ONCE 03/29/20 12:00 03/30/20 13:02 DC Linezolid/Dextrose 300 ml @ 300 mls/hr Q12HR 03/21/20 09:00 03/28/20 08:39 DC 03/28/20 08:19 300 MLS/HR Lorazepam (Ativan Inj) 1 mg PRN Q1HR PRN 03/20/20 04:45 03/26/20 15:29 DC 03/26/20 14:30 1 MG Magnesium Sulfate 50 ml @ 25 mls/hr 1X ONCE 04/02/20 07:30 04/02/20 09:29 Midazolam HCl 100 ml @ 0 mls/hr CONT PRN 03/26/20 19:15 04/01/20 12:21 5 MLS/HR Milrinone Lactate/ Dextrose 100 ml @ 6.735 mls/ hr CONT PRN 03/30/20 15:30 04/01/20 20:33 6.735 MLS/HR Morphine Sulfate (Morphine Sulfate) 4 mg PRN Q1HR PRN 03/26/20 19:15 03/28/20 22:35 DC Non-Formulary Medication (ABACAVIR/ DOLUTEGRAVIR/ LAMIVUDINE (Triumeq) tablet) 1 ea DAILY 03/20/20 17:00 04/01/20 10:05 1 EA Norepinephrine Bitartrate 8 mg/ Dextrose 258 ml @ 18.247 mls/ hr CONT PRN 03/20/20 04:15 03/28/20 19:12 18.247 MLS/HR Olanzapine (ZyPREXA ZYDIS) 5 mg PRN Q4HRS PRN 03/26/20 19:15 Ondansetron HCl (Zofran) 4 mg PRN Q6HRS PRN 03/20/20 10:30 03/26/20 18:17 4 MG Pantoprazole Sodium (PROTONIX VIAL for IV PUSH) 40 mg DAILYAC 03/20/20 12:30 04/01/20 10:04 40 MG Piperacillin Sod/ Tazobactam Sod (Zosyn Per Pharmacy) 1 each PRN DAILY PRN 03/20/20 09:30 Piperacillin Sod/ Tazobactam Sod 3.375 gm/Sodium Chloride 50 ml @ 100 mls/hr Q6HRS 03/20/20 10:00 04/02/20 05:06 100 MLS/HR Potassium Bicarbonate (Potassium Effervescent Tablet) 20 meq 1X ONCE 04/01/20 16:15 04/01/20 16:16 DC 04/01/20 16:25 20 MEQ Potassium Chloride/Water 100 ml @ 100 mls/hr Q1H 04/02/20 07:30 04/02/20 09:29 Propofol 100 ml @ 0 mls/hr CONT PRN 03/26/20 19:15 04/02/20 07:00 16.416 MLS/HR Sodium Bicarbonate (Sodium Bicarb Adult 8.4% Syr) 50 meq STK-MED ONCE 03/26/20 21:00 03/27/20 19:23 DC Sodium Chloride 500 ml @ 500 mls/hr 1X PRN PRN 03/27/20 01:45 Cancel Sodium Chloride (Normal Saline Flush) 3 ml QSHIFT PRN 03/20/20 10:30 Succinylcholine Chloride (Anectine) 200 mg STK-MED ONCE 03/26/20 23:34 03/26/20 23:35 DC Vancomycin HCl (Vancomycin Oral Solution) 125 mg BID 03/20/20 21:30 04/01/20 20:33 125 MG Labs: Lab Laboratory Tests Test 04/02/20 05:10 White Blood Count 9.1 x10^3/uL (4.0-11.0) Red Blood Count 2.95 x10^6/uL (4.30-5.70) Hemoglobin 7.3 g/dL (13.0-17.5) Hematocrit 23.0 % (39.0-53.0) Mean Corpuscular Volume 78 fL (79-100) Mean Corpuscular Hemoglobin 25 pg (25-35) Mean Corpuscular Hemoglobin Concent 32 g/dL (31-37) Red Cell Distribution Width 18.3 % (11.5-14.5) Platelet Count 413 x10^3/uL (140-400) Sodium Level 144 mmol/L (136-145) Potassium Level 3.3 mmol/L (3.5-5.1) Chloride Level 108 mmol/L (98-107) Carbon Dioxide Level 24 mmol/L (21-32) Anion Gap 12 (6-14) Blood Urea Nitrogen 4 mg/dL (8-26) Creatinine 1.0 mg/dL (0.7-1.3) Estimated GFR (Cockcroft-Gault) 94.9 BUN/Creatinine Ratio 4 (6-20) Glucose Level 86 mg/dL (70-99) Calcium Level 8.5 mg/dL (8.5-10.1) Phosphorus Level 4.1 mg/dL (2.6-4.7) Magnesium Level 1.8 mg/dL (1.8-2.4) Total Bilirubin 0.3 mg/dL (0.2-1.0) Aspartate Amino Transf (AST/SGOT) 14 U/L (15-37) Alanine Aminotransferase (ALT/SGPT) 10 U/L (16-63) Alkaline Phosphatase 64 U/L (46-116) Total Protein 6.9 g/dL (6.4-8.2) Albumin 2.1 g/dL (3.4-5.0) Albumin/Globulin Ratio 0.4 (1.0-1.7) Objective: Assessment: 1. Fever, likely aspiration. UA negative now resolved 2. Witnessed cardiac arrest, status post defibrillation. 3. Leukocytosis and lactic acidosis. 4. Human immunodeficiency virus, CD4 was 403 on 01/16 viral load less than 20 on 01/23on [facility]. 5. Acute hypoxic respiratory failure 6. History of ventricular tachycardia, Coronary artery disease, status post PCI. 7. Status post pacemaker for bradycardia 12/27 at [facility]. 8. History of acute kidney injury, on hemodialysis in the past. 9. 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 10. Substance dependence. UDS positive for cocaine at outside hospital. 11. Hypertension/hyperlipidemia 12. Hypokalemia/hypomagnesemia. 13. H/O Chronic systolic congestive heart failure. 14. History of rectal abscess. 15. History of Necrotizing Pneumonia with Klebsiella at [facility] November 2019 16. V. fib arrest, torsades 19. Severe cardiomyopathy 20. Anemia of chronic disease 21. History of noncompliance Plan: Plan of Care Continue Zosyn, Continue p.o. vancomycin for prophylaxis with history of recurrent C. difficile Continue Triumeq Follow up labs and cultures. Continue supportive care Follow-up CT head Prognosis guarded Discussed with nursing. MILLY NICOLE MD Apr 02, 2020 07:09
[2020-04-02] MEDS ORDERED: MAGNESIUM SULFATE 2GM 50 ML IV ONE ×2 (07:30→12:00)
--- NOTE | 2020-04-02 07:36 | RAD ---
XR CHEST 1V INDICATION: covid neg; on vent ICU#109 / Spl. Instructions: / History: . COMPARISON STUDY: 03/31/2020. FINDINGS: Life Support Devices: Stable endotracheal tube, enteric tube, left IJ central venous catheter. Lungs: Normal lung volume. Progression of left basilar opacities. Normal pulmonary vasculature. Pleura: Increased small left pleural effusion. Heart and Mediastinum: Stable cardiomediastinal silhouette and great vessels. Bones and Soft Tissues: Stable regional skeleton and soft tissues. IMPRESSION: 1. Stable life support devices. 2. Progression of left basilar opacities. 3. Increased small left pleural effusion. Electronically signed by: Constantine Lim MD (04/02/2020 7:32 AM) [id number]
[2020-04-02] MEDS: PANTOPRAZOLE IV PUSH 40 MG VIAL. IVP SCH (07:52)
[2020-04-02] MEDS: POTASSIUM CHLORIDE 20MEQ 100 ML IV SCH ×2 (07:52→09:24)
[2020-04-02] MEDS: CLOPIDOGREL BISULFATE 75 MG TABLET PO SCH (07:53)
[2020-04-02] MEDS: LAMIVUDINE PO SCH (07:53)
[2020-04-02] MEDS: VANCOMYCIN 125 MG/2.5 ML ORAL SOLUTION. PO SCH ×2 (07:53→20:32)
[2020-04-02] MEDS: AMIODARONE HCL 200 MG TABLET. PO SCH (07:53)
[2020-04-02] MEDS: DOLUTEGRAVIR PO SCH (07:53)
[2020-04-02] MEDS: ABACAVIR PO SCH (07:53)
[2020-04-02 07:54] LABS: BASE EXCESS ABG -1 mmol/L (-3-3); HCO3 ABG 23 mmol/L (21-28); PCO2 ABG 37 mmHg (35-46); PO2 ABG 96 mmHg (75-108); SAT O2 ABG 97 % (92-99)
[2020-04-02] MEDS: ELECTROLYTE (ICU) PROTOCOL. MC SCH (07:54)
[2020-04-02 08:00] LABS: FIO2 ABG 40
--- NOTE | 2020-04-02 08:03 | RAD ---
CT HEAD/BRAIN WO Date: 04/02/2020 7:47 AM Clinical Indication: Reason: Post code; anoxic brain injury / Spl. Instructions: / History: Comparison: None. Technique: 5 mm axial tomographic images were obtained of the head without contrast. These were view ed on brain and bone windows. One or more of the following dose reduction techniques were utilized: A utomated exposure control (AEC), Adjustment of mA and/or kV according to patient size, Use of iterati ve reconstruction technique such as ASiR, CT scan done according to ALARA and image gently/image suarez ly Findings: The brain parenchyma is normal in attenuation. No intra- or extra-axial mass or fluid collection. No acute hemorrhage. The ventricles are normal in size, shape, and morphology. The rcump-white matter niraj ction is normal. The subarachnoid cisterns are patent. The visualized paranasal sinuses are normal. The visualized portions of the orbits and globes are no rmal. The mastoid air cells are clear. The space planner topogram shows no lytic lesion or fracture. Impression: No acute hemorrhage, loss of crump-white differentiation, or gyral swelling. Electronically signed by: Constantine Lim MD (04/02/2020 7:57 AM) [id number]
[2020-04-02] MEDS ORDERED: POTASSIUM BICARB 20 MEQ EFFERVESCENT TABLET. PEG ONE (09:30)
--- NOTE | 2020-04-02 09:53 | PDOC ---
Date of Service: DATE: 04/02/20 TIME: 09:48 Objective: Objective: D/w nurse - no GI concerns, possible extubation today. Vital Signs: Vital Signs Date Time Temp Pulse Resp B/P (MAP) Pulse Ox O2 Delivery O2 Flow Rate FiO2 04/02/20 09:00 72 20 141/89 (106) 100 Ventilator 04/02/20 08:00 99.6 99.6 04/01/20 11:36 15.0 Labs: Laboratory Tests Test 04/02/20 05:10 04/02/20 07:40 White Blood Count 9.1 x10^3/uL Red Blood Count 2.95 x10^6/uL Hemoglobin 7.3 g/dL Hematocrit 23.0 % Mean Corpuscular Volume 78 fL Mean Corpuscular Hemoglobin 25 pg Mean Corpuscular Hemoglobin Concent 32 g/dL Red Cell Distribution Width 18.3 % Platelet Count 413 x10^3/uL Sodium Level 144 mmol/L Potassium Level 3.3 mmol/L Chloride Level 108 mmol/L Carbon Dioxide Level 24 mmol/L Anion Gap 12 Blood Urea Nitrogen 4 mg/dL Creatinine 1.0 mg/dL Estimated GFR (Cockcroft-Gault) 94.9 BUN/Creatinine Ratio 4 Glucose Level 86 mg/dL Calcium Level 8.5 mg/dL Phosphorus Level 4.1 mg/dL Magnesium Level 1.8 mg/dL Total Bilirubin 0.3 mg/dL Aspartate Amino Transf (AST/SGOT) 14 U/L Alanine Aminotransferase (ALT/SGPT) 10 U/L Alkaline Phosphatase 64 U/L Total Protein 6.9 g/dL Albumin 2.1 g/dL Albumin/Globulin Ratio 0.4 O2 Saturation 97 % Arterial Blood pH 7.41 Arterial Blood pCO2 at Patient Temp 37 mmHg Arterial Blood pO2 at Patient Temp 96 mmHg Arterial Blood HCO3 23 mmol/L Arterial Blood Base Excess -1 mmol/L FiO2 40 Imaging: Head CT 04/02 Impression: No acute hemorrhage, loss of crump-white differentiation, or gyral swelling. CXR 04/02 IMPRESSION: 1. Stable life support devices. 2. Progression of left basilar opacities. 3. Increased small left pleural effusion. PE: GEN: intubated LUNGS: vent/clear HEART: RRR ABD: soft, non-distended NEURO/PSYCH: sedated A/P: S/p arrests, CAD, CHF, resp failure Anemia (stable), h/o GI bleeding (none here) +cocaine H/o non-compliance COVID negative -- Plans as above. Continue PPI. Justicifation of Admission Dx: Justifications for Admission: Justification of Admission Dx: Yes YNES CLEARY Apr 02, 2020 09:53
--- NOTE | 2020-04-02 10:18 | PDOC ---
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 Coronary artery disease status-post stent, cardiomyopathy requiring defibrillator placement which has not been done yet due to his drug use. Plan Continue current supportive care. Subjective None Objective Vital Signs Date Time Temp Pulse Resp B/P (MAP) Pulse Ox O2 Delivery O2 Flow Rate FiO2 04/02/20 09:00 72 20 141/89 (106) 100 Ventilator 04/02/20 08:00 99.6 99.6 04/01/20 11:36 15.0 Intake and Output 04/02/20 06:59 Intake Total 3339.29 ml Output Total 1385 ml Balance 1954.29 ml IV Total 2304.29 ml Tube Feeding 835 ml Other 200 ml Output Urine Total 1385 ml Gastric Drainage Total 0 ml # Bowel Movements 2 PHYSICAL EXAM Sedated on vent, averts gaze away from flashlight, withdraws appropriately to pain PERRL. EOMI. CN: no focal findings. Muscle tone: normal. Muscle strength: Moves all extremities to minimal stimulation DTR: 1+ Plantar reflex: Flexor Gait: not examined in bed. Sensory exam: no abnormal findings. No cerebellar signs elicited. Review of Relevant I have reviewed the following items joel (where applicable) has been applied. Labs Laboratory Tests Test 03/31/20 17:35 04/01/20 05:00 04/01/20 07:00 04/02/20 05:10 Glucose (Fingerstick) 86 mg/dL (70-99) White Blood Count 10.6 x10^3/uL (4.0-11.0) 9.1 x10^3/uL (4.0-11.0) Red Blood Count 2.86 x10^6/uL (4.30-5.70) 2.95 x10^6/uL (4.30-5.70) Hemoglobin 7.1 g/dL (13.0-17.5) 7.3 g/dL (13.0-17.5) Hematocrit 22.4 % (39.0-53.0) 23.0 % (39.0-53.0) Mean Corpuscular Volume 79 fL (79-100) 78 fL (79-100) Mean Corpuscular Hemoglobin 25 pg (25-35) 25 pg (25-35) Mean Corpuscular Hemoglobin Concent 32 g/dL (31-37) 32 g/dL (31-37) Red Cell Distribution Width 17.8 % (11.5-14.5) 18.3 % (11.5-14.5) Platelet Count 361 x10^3/uL (140-400) 413 x10^3/uL (140-400) Sodium Level 148 mmol/L (136-145) 144 mmol/L (136-145) Potassium Level 3.6 mmol/L (3.5-5.1) 3.3 mmol/L (3.5-5.1) Chloride Level 111 mmol/L (98-107) 108 mmol/L (98-107) Carbon Dioxide Level 23 mmol/L (21-32) 24 mmol/L (21-32) Anion Gap 14 (6-14) 12 (6-14) Blood Urea Nitrogen 7 mg/dL (8-26) 4 mg/dL (8-26) Creatinine 1.1 mg/dL (0.7-1.3) 1.0 mg/dL (0.7-1.3) Estimated GFR (Cockcroft-Gault) 85.1 94.9 BUN/Creatinine Ratio 6 (6-20) 4 (6-20) Glucose Level 85 mg/dL (70-99) 86 mg/dL (70-99) Calcium Level 8.5 mg/dL (8.5-10.1) 8.5 mg/dL (8.5-10.1) Magnesium Level 2.1 mg/dL (1.8-2.4) 1.8 mg/dL (1.8-2.4) Total Bilirubin 0.4 mg/dL (0.2-1.0) 0.3 mg/dL (0.2-1.0) Aspartate Amino Transf (AST/SGOT) 16 U/L (15-37) 14 U/L (15-37) Alanine Aminotransferase (ALT/SGPT) 10 U/L (16-63) 10 U/L (16-63) Alkaline Phosphatase 61 U/L (46-116) 64 U/L (46-116) Total Protein 6.8 g/dL (6.4-8.2) 6.9 g/dL (6.4-8.2) Albumin 2.0 g/dL (3.4-5.0) 2.1 g/dL (3.4-5.0) Albumin/Globulin Ratio 0.4 (1.0-1.7) 0.4 (1.0-1.7) O2 Saturation 97 % (92-99) Arterial Blood pH 7.39 (7.35-7.45) Arterial Blood pCO2 at Patient Temp 37 mmHg (35-46) Arterial Blood pO2 at Patient Temp 97 mmHg (75-108) Arterial Blood HCO3 22 mmol/L (21-28) Arterial Blood Base Excess -3 mmol/L (-3-3) FiO2 40/vent Phosphorus Level 4.1 mg/dL (2.6-4.7) Test 04/02/20 07:40 O2 Saturation 97 % (92-99) Arterial Blood pH 7.41 (7.35-7.45) Arterial Blood pCO2 at Patient Temp 37 mmHg (35-46) Arterial Blood pO2 at Patient Temp 96 mmHg (75-108) Arterial Blood HCO3 23 mmol/L (21-28) Arterial Blood Base Excess -1 mmol/L (-3-3) FiO2 40 Laboratory Tests Test 04/02/20 05:10 04/02/20 07:40 White Blood Count 9.1 x10^3/uL (4.0-11.0) Red Blood Count 2.95 x10^6/uL (4.30-5.70) Hemoglobin 7.3 g/dL (13.0-17.5) Hematocrit 23.0 % (39.0-53.0) Mean Corpuscular Volume 78 fL (79-100) Mean Corpuscular Hemoglobin 25 pg (25-35) Mean Corpuscular Hemoglobin Concent 32 g/dL (31-37) Red Cell Distribution Width 18.3 % (11.5-14.5) Platelet Count 413 x10^3/uL (140-400) Sodium Level 144 mmol/L (136-145) Potassium Level 3.3 mmol/L (3.5-5.1) Chloride Level 108 mmol/L (98-107) Carbon Dioxide Level 24 mmol/L (21-32) Anion Gap 12 (6-14) Blood Urea Nitrogen 4 mg/dL (8-26) Creatinine 1.0 mg/dL (0.7-1.3) Estimated GFR (Cockcroft-Gault) 94.9 BUN/Creatinine Ratio 4 (6-20) Glucose Level 86 mg/dL (70-99) Calcium Level 8.5 mg/dL (8.5-10.1) Phosphorus Level 4.1 mg/dL (2.6-4.7) Magnesium Level 1.8 mg/dL (1.8-2.4) Total Bilirubin 0.3 mg/dL (0.2-1.0) Aspartate Amino Transf (AST/SGOT) 14 U/L (15-37) Alanine Aminotransferase (ALT/SGPT) 10 U/L (16-63) Alkaline Phosphatase 64 U/L (46-116) Total Protein 6.9 g/dL (6.4-8.2) Albumin 2.1 g/dL (3.4-5.0) Albumin/Globulin Ratio 0.4 (1.0-1.7) O2 Saturation 97 % (92-99) Arterial Blood pH 7.41 (7.35-7.45) Arterial Blood pCO2 at Patient Temp 37 mmHg (35-46) Arterial Blood pO2 at Patient Temp 96 mmHg (75-108) Arterial Blood HCO3 23 mmol/L (21-28) Arterial Blood Base Excess -1 mmol/L (-3-3) FiO2 40 Microbiology 03/26/20 Urine Culture - Final, Complete 03/21/20 Gram Stain Evaluation - Final, Complete 03/21/20 Respiratory Culture - Final, Complete 03/20/20 Blood Culture - Final, Complete NO GROWTH AFTER 5 DAYS Medications Current Medications Norepinephrine Bitartrate 8 mg/ Dextrose 258 ml @ 18.247 mls/ hr CONT PRN IV P ER PROTOCOL Last administered on 03/28/20at 19:12; Start 03/20/20 at 04:15 Dopamine HCl/ Dextrose 250 ml @ 17.681 mls/ hr CONT PRN IV SEE I/O RECORD; Start 03/20/20 at 04:30 Heparin Sodium/ Dextrose 250 ml @ 0 mls/hr CONT PRN IV PER PROTOCOL Last admini stered on 03/21/20at 22:15; Start 03/20/20 at 04:30; Stop 03/22/20 at 10:15; Status DC Heparin Sodium (Porcine) (Heparin Sodium) 2,400 unit PRN Q6HRS PRN IV FOR UFH LEVEL LESS THAN 0.2 Last administered on 03/21/20at 14:17; Start 03/20/20 at 04:30; Stop 03/22/20 at 10:15; Status DC Fentanyl Citrate 30 ml @ 0 mls/hr CONT PRN IV SEE PROTOCOL Last administered on 03/23/20at 06:19; Start 03/20/20 at 04:45; Stop 03/23/20 at 19:11; Status DC Lorazepam (Ativan Inj) 1 mg PRN Q1HR PRN IV SEE COMMENTS Last administered on 03/26/20at 14:30; Start 03/20/20 at 04:45; Stop 03/26/20 at 15:29; Status DC Fentanyl Citrate (Fentanyl 2ml Vial) 25 mcg PRN Q1HR PRN IV SEE COMMENTS; Start 03/20/20 at 04:45; Stop 03/26/20 at 15:29; Status DC Fentanyl Citrate (Fentanyl 2ml Vial) 50 mcg PRN Q1HR PRN IV SEE COMMENTS; Start 03/20/20 at 04:45; Stop 03/26/20 at 15:29; Status DC Chlorhexidine Gluconate (Peridex) 15 ml BID MM ; Start 03/20/20 at 09:00; Stop 03/20/20 at 07:24; Status DC Famotidine (Pepcid Vial) 20 mg BID IVP Last administered on 03/20/20at 08:07; Start 03/20/20 at 09:00; Stop 03/20/20 at 12:52; Status DC Morphine Sulfate (Morphine Sulfate) 2 mg PRN Q1HR PRN IV SEE COMMENTS.; Start 03/20/20 at 04:45; Stop 03/26/20 at 04:43; Status DC Morphine Sulfate (Morphine Sulfate) 4 mg PRN Q1HR PRN IV SEE COMMENTS.; Start 03/20/20 at 04:45; Stop 03/26/20 at 04:43; Status DC Midazolam HCl 100 ml @ 0 mls/hr CONT PRN IV SEE PROTOCOL Last administered on 03/26/20at 02:42; Start 03/20/20 at 04:45; Stop 03/26/20 at 15:29; Status DC Docusate Sodium (Colace Solution) 100 mg BID NG Last administered on 03/26/20at 08:35; Start 03/20/20 at 09:00; Stop 03/26/20 at 15:28; Status DC Sodium Chloride 1,000 ml @ 55 mls/hr [id number] IV Last administered on 04/02/20 00:08; Start 03/20/20 at 06:30 Acetaminophen (Tylenol) 650 mg PRN Q6HRS PRN PEG MILD PAIN / TEMP > 100.3'F Last administered on 03/27/20 20:51; Start 03/20/20 at 09:00 Piperacillin Sod/ Tazobactam Sod (Zosyn Per Pharmacy) 1 each PRN DAILY PRN MC SEE COMMENTS; Start 03/20/20 at 09:30 Piperacillin Sod/ Tazobactam Sod 3.375 gm/Sodium Chloride 50 ml @ 100 mls/hr Q6HRS IV Last administered on 04/02/20 05:06; Start 03/20/20 at 10:00 Magnesium Sulfate 50 ml @ 25 mls/hr 1X ONCE IV Last administered on 03/20/20at 10:21; Start 03/20/20 at 09:45; Stop 03/20/20 at 11:44; Status DC Clopidogrel Bisulfate (Plavix) 75 mg DAILYWBKFT PO Last administered on 04/02/20 07:53; Start 03/20/20 at 12:00 Atorvastatin Calcium (Lipitor) 80 mg QHS PO Last administered on 04/01/20 20:32; Start 03/20/20 at 21:00 Ondansetron HCl (Zofran) 4 mg PRN Q6HRS PRN IVP NAUSEA/VOMITING Last administered on 03/26/20 18:17; Start 03/20/20 at 10:30 Famotidine (Pepcid Vial) 20 mg BID IVP ; Start 03/20/20 at 11:00; Stop 03/20/20 at 12:35; Status DC Info (Icu Electrolyte Protocol) 1 ea DAILY MC Last administered on 04/02/20 07:54; Start 03/21/20 at 09:00 Sodium Chloride (Normal Saline Flush) 3 ml QSHIFT PRN IV AFTER MEDS AND BLOOD DRAWS; Start 03/20/20 at 10:30 Pantoprazole Sodium (PROTONIX VIAL for IV PUSH) 40 mg DAILYAC IVP Last administered on 1/11/21at 07:52; Start 03/20/20 at 12:30 Potassium Bicarbonate (Potassium Effervescent Tablet) 40 meq 1X ONCE PEG Last administered on 03/20/20at 14:47; Start 03/20/20 at 14:00; Stop 03/20/20 at 14:20; Status DC Non-Formulary Medication (ABACAVIR/ DOLUTEGRAVIR/ LAMIVUDINE (Triumeq) tablet) 1 ea DAILY PO Last administered on 04/02/20at 07:53; Start 03/20/20 at 17:00 Vancomycin HCl (Vancomycin Oral Solution) 125 mg BID PO Last administered on 04/02/20at 07:53; Start 03/20/20 at 21:30 Linezolid/Dextrose 300 ml @ 300 mls/hr Q12HR IV Last administered on 03/28/20at 08:19; Start 03/21/20 at 09:00; Stop 03/28/20 at 08:39; Status DC Furosemide (Lasix) 40 mg DAILY IVP Last administered on 03/31/20at 08:40; Start 03/22/20 at 11:00 Potassium Chloride/Water 100 ml @ 50 mls/hr 1X ONCE IV Last administered on 03/22/20at 12:58; Start 03/22/20 at 10:30; Stop 03/22/20 at 12:29; Status DC Fentanyl Citrate 55 ml @ 0 mls/hr CONT PRN IV SEE PROTOCOL Last administered on 04/01/20at 11:36; Start 03/23/20 at 19:15 Dexmedetomidine HCl 400 mcg/ Sodium Chloride 100 ml @ 0 mls/hr CONT PRN IV PER PROTOCOL Last administered on 03/24/20at 03:33; Start 03/23/20 at 21:00; Stop 03/24/20 at 08:52; Status DC Sodium Chloride 500 ml @ 500 mls/hr 1X PRN PRN IV SEE COMMENTS; Start 03/23/20 at 21:00 Atropine Sulfate (ATROPINE 0.5mg SYRINGE) 0.5 mg PRN Q5MIN PRN IV SEE COMMENTS; Start 03/23/20 at 21:00 Haloperidol Lactate (Haldol Inj) 5 mg PRN Q6HRS PRN IVP AGITATION; Start 03/23/20 at 21:00; Stop 03/24/20 at 08:52; Status DC Propofol 100 ml @ 2.748 mls/ hr CONT PRN IV PER PROTOCOL Last administered on 03/25/20at 01:17; Start 03/24/20 at 09:00; Stop 03/26/20 at 15:31; Status DC Potassium Chloride/Water 100 ml @ 100 mls/hr Q1H IV Last administered on 03/25/20at 19:02; Start 03/25/20 at 10:00; Stop 03/25/20 at 17:59; Status DC Potassium Chloride/Water 100 ml @ 100 mls/hr Q1H IV ; Start 03/25/20 at 15:00; Stop 03/25/20 at 13:59; Status DC Potassium Bicarbonate (Potassium Effervescent Tablet) 40 meq 1X ONCE PO Last administered on 03/26/20at 08:36; Start 03/26/20 at 08:15; Stop 03/26/20 at 08:22; Status DC Propofol 100 ml @ As Directed STK-MED ONCE IV ; Start 03/26/20 at 19:07; Stop 03/26/20 at 19:07; Status DC Fentanyl Citrate 30 ml @ 0 mls/hr CONT PRN IV SEE PROTOCOL; Start 03/26/20 at 19:15; Status Cancel Propofol 100 ml @ 0 mls/hr CONT PRN IV PER PROTOCOL; Start 03/26/20 at 19:15; Status Cancel Fentanyl Citrate (Fentanyl 2ml Vial) 25 mcg PRN Q1HR PRN IV SEE COMMENTS; Start 03/26/20 at 19:15 Fentanyl Citrate (Fentanyl 2ml Vial) 50 mcg PRN Q1HR PRN IV SEE COMMENTS; Start 03/26/20 at 19:15 Chlorhexidine Gluconate (Peridex) 15 ml BID MM Last administered on 03/27/20at 20:51; Start 03/26/20 at 21:00; Stop 03/28/20 at 11:44; Status DC Morphine Sulfate (Morphine Sulfate) 2 mg PRN Q1HR PRN IV SEE COMMENTS.; Start 03/26/20 at 19:15; Status Cancel Morphine Sulfate (Morphine Sulfate) 2 mg PRN Q1HR PRN IV SEE COMMENTS.; Start 03/26/20 at 19:15; Stop 03/28/20 at 22:35; Status DC Morphine Sulfate (Morphine Sulfate) 4 mg PRN Q1HR PRN IV SEE COMMENTS.; Start 03/26/20 at 19:15; Stop 03/28/20 at 22:35; Status DC Olanzapine (ZyPREXA ZYDIS) 5 mg PRN Q4HRS PRN PO AGITATION, DELIRIUM; Start 03/26/20 at 19:15 Labetalol HCl (Normodyne Iv Push) 10 mg PRN Q2HR PRN IVP HYPERTENSION; Start 03/26/20 at 19:15 Fentanyl Citrate 30 ml @ 0 mls/hr CONT PRN IV SEE PROTOCOL; Start 03/26/20 at 19:15; Status UNV Propofol 100 ml @ 0 mls/hr CONT PRN IV PER PROTOCOL Last administered on 04/02/20at 07:00; Start 03/26/20 at 19:15 Midazolam HCl 100 ml @ 0 mls/hr CONT PRN IV SEE PROTOCOL Last administered on 04/01/20at 12:21; Start 03/26/20 at 19:15 Amiodarone HCl 150 mg/Dextrose 103 ml @ 618 mls/hr 1X ONCE IV Last administered on 03/26/20at 19:44; Start 03/26/20 at 19:45; Stop 03/26/20 at 19:54; Status DC Amiodarone HCl 450 mg/Dextrose 259 ml @ 0 mls/hr 1X ONCE IV Last administered on 03/26/20at 19:45; Start 03/26/20 at 19:45; Stop 03/26/20 at 19:46; Status DC Potassium Chloride/Water 100 ml @ 100 mls/hr Q1H IV Last administered on 03/27/20at 00:44; Start 03/26/20 at 21:00; Stop 03/27/20 at 00:59; Status DC Sodium Chloride 500 ml @ 500 mls/hr 1X ONCE IV Last administered on 03/26/20at 21:09; Start 03/26/20 at 21:15; Stop 03/26/20 at 22:14; Status DC Magnesium Sulfate 100 ml @ 50 mls/hr DAILY IV Last administered on 03/26/20at 22:23; Start 03/26/20 at 22:00; Stop 03/29/20 at 03:54; Status DC Etomidate (Amidate) 20 mg STK-MED ONCE IV ; Start 03/26/20 at 23:34; Stop 03/26/20 at 23:35; Status DC Succinylcholine Chloride (Anectine) 200 mg STK-MED ONCE .ROUTE ; Start 03/26/20 at 23:34; Stop 03/26/20 at 23:35; Status DC Lidocaine HCl (Lidocaine HCl 2% Abboject) 80 mg 1X ONCE IV Last administered on 03/27/20at 01:50; Start 03/27/20 at 02:00; Stop 03/27/20 at 02:01; Status DC Potassium Chloride/Water 100 ml @ 100 mls/hr Q1H IV Last administered on 03/27/20at 07:24; Start 03/27/20 at 02:00; Stop 03/27/20 at 05:59; Status DC Dexmedetomidine HCl 400 mcg/ Sodium Chloride 100 ml @ 0 mls/hr CONT PRN IV PER PROTOCOL Last administered on 04/01/20at 11:11; Start 03/27/20 at 01:45 Sodium Chloride 500 ml @ 500 mls/hr 1X PRN PRN IV SEE COMMENTS; Start 03/27/20 at 01:45; Status Cancel Atropine Sulfate (ATROPINE 0.5mg SYRINGE) 0.5 mg PRN Q5MIN PRN IV SEE COMMENTS; Start 03/27/20 at 01:45; Stop 03/27/20 at 16:31; Status DC Amiodarone HCl 450 mg/Dextrose 259 ml @ 16.7 mls/hr CONT PRN IV SEE I/O RECORD Last administered on 03/27/20at 18:15; Start 03/27/20 at 03:00; Stop 03/27/20 at 18:16; Status DC Lidocaine HCl (Lidocaine 1% 20ml Vial) 20 ml STK-MED ONCE .ROUTE ; Start 03/27/20 at 09:23; Stop 03/27/20 at 09:23; Status DC Heparin Sodium/ Sodium Chloride 1,000 ml @ As Directed STK-MED ONCE .ROUTE ; Start 03/27/20 at 09:23; Stop 03/27/20 at 09:24; Status DC Iodixanol (Visipaque 320) 100 ml STK-MED ONCE .ROUTE ; Start 03/27/20 at 09:23; Stop 03/27/20 at 09:24; Status DC Heparin Sodium/ Sodium Chloride (HEPARIN for ARTERIAL LINE FLUSH) 1,000 unit 1X ONCE IART Last administered on 03/27/20at 10:00; Start 03/27/20 at 10:00; Stop 03/27/20 at 10:01; Status DC Heparin Sodium/ Sodium Chloride (HEPARIN for ARTERIAL LINE FLUSH) 1,000 unit 1X ONCE IART Last administered on 03/27/20at 10:00; Start 03/27/20 at 10:00; Stop 03/27/20 at 10:01; Status DC Iodixanol (Visipaque 320) 100 ml 1X ONCE IART Last administered on 03/27/20at 11:05; Start 03/27/20 at 10:00; Stop 03/27/20 at 10:01; Status DC Lidocaine HCl (Lidocaine 1% 20ml Vial) 20 ml 1X ONCE INJ Last administered on 03/27/20at 10:41; Start 03/27/20 at 10:00; Stop 03/27/20 at 10:01; Status DC Info (CONTRAST GIVEN -- Rx MONITORING) 1 each PRN DAILY PRN MC SEE COMMENTS; Start 03/27/20 at 10:00; Stop 03/29/20 at 09:59; Status DC Milrinone Lactate/ Dextrose 100 ml @ 10.103 mls/ hr CONT PRN IV SEE I/O RECORD Last administered on 03/30/20at 09:19; Start 03/27/20 at 11:30; Stop 03/30/20 at 15:28; Status DC Epinephrine HCl (EPINEPHrine SYRINGE) 1 mg STK-MED ONCE .ROUTE ; Start 03/26/20 at 21:00; Stop 03/27/20 at 19:23; Status DC Sodium Bicarbonate (Sodium Bicarb Adult 8.4% Syr) 50 meq STK-MED ONCE .ROUTE ; Start 03/26/20 at 21:00; Stop 03/27/20 at 19:23; Status DC Potassium Chloride/Water 100 ml @ 100 mls/hr Q1H IV Last administered on 03/28/20at 08:18; Start 03/28/20 at 06:00; Stop 03/28/20 at 07:59; Status DC Amiodarone HCl (Cordarone) 200 mg BID PO Last administered on 03/29/20at 07:46; Start 03/28/20 at 21:00; Stop 03/29/20 at 10:29; Status DC Lidocaine HCl (Lidocaine HCl 2% Abboject) 80 mg 1X ONCE IV Last administered on 03/28/20at 19:55; Start 03/28/20 at 20:15; Stop 03/28/20 at 20:16; Status DC Amiodarone HCl (Cordarone) 200 mg 1X ONCE PO Last administered on 03/29/20at 13:55; Start 03/29/20 at 13:45; Stop 03/29/20 at 13:50; Status DC Amiodarone HCl (Cordarone) 400 mg DAILY PO Last administered on 04/02/20at 07:53; Start 03/30/20 at 09:00 Magnesium Sulfate 50 ml @ 25 mls/hr 1X ONCE IV Last administered on 03/30/20at 09:55; Start 03/30/20 at 09:45; Stop 03/30/20 at 11:44; Status DC Potassium Bicarbonate (Potassium Effervescent Tablet) 40 meq 1X ONCE PEG Last administered on 03/30/20at 09:54; Start 03/30/20 at 09:45; Stop 03/30/20 at 09:53; Status DC Potassium Bicarbonate (Potassium Effervescent Tablet) 40 meq 1X ONCE PO Last administered on 03/30/20at 13:40; Start 03/30/20 at 14:15; Stop 03/30/20 at 14:16; Status DC Epinephrine HCl (EPINEPHrine SYRINGE) 1 mg STK-MED ONCE .ROUTE ; Start 03/29/20 at 12:00; Stop 03/30/20 at 13:02; Status DC Lidocaine HCl (Lidocaine HCl 2% Abboject) 100 mg STK-MED ONCE .ROUTE ; Start 03/29/20 at 12:00; Stop 03/30/20 at 13:02; Status DC Milrinone Lactate/ Dextrose 100 ml @ 6.735 mls/ hr CONT PRN IV SEE I/O RECORD Last administered on 04/01/20at 20:33; Start 03/30/20 at 15:30 Magnesium Sulfate 50 ml @ 25 mls/hr 1X ONCE IV Last administered on 03/31/20at 08:38; Start 03/31/20 at 08:30; Stop 03/31/20 at 10:29; Status DC Potassium Bicarbonate (Potassium Effervescent Tablet) 40 meq 1X ONCE PEG Last administered on 03/31/20at 08:37; Start 03/31/20 at 08:00; Stop 03/31/20 at 08:01; Status DC Potassium Bicarbonate (Potassium Effervescent Tablet) 40 meq 1X ONCE PEG Last administered on 03/31/20at 12:31; Start 03/31/20 at 12:00; Stop 03/31/20 at 12:01; Status DC Potassium Bicarbonate (Potassium Effervescent Tablet) 80 meq 1X ONCE PO Last administered on 04/01/20at 10:05; Start 04/01/20 at 09:45; Stop 04/01/20 at 09:46; Status DC Potassium Bicarbonate (Potassium Effervescent Tablet) 20 meq 1X ONCE PEG Last administered on 04/01/20at 16:25; Start 04/01/20 at 16:15; Stop 04/01/20 at 16:16; Status DC Potassium Chloride/Water 100 ml @ 100 mls/hr Q1H IV Last administered on 04/02/20at 09:24; Start 04/02/20 at 07:30; Stop 04/02/20 at 09:29; Status DC Magnesium Sulfate 50 ml @ 25 mls/hr 1X ONCE IV Last administered on 04/02/20at 07:52; Start 04/02/20 at 07:30; Stop 04/02/20 at 09:29; Status DC Potassium Bicarbonate (Potassium Effervescent Tablet) 40 meq 1X ONCE PEG Last administered on 04/02/20at 09:34; Start 04/02/20 at 09:30; Stop 04/02/20 at 09:31; Status DC Enoxaparin Sodium (Lovenox 40mg Syringe) 40 mg Q24H SQ ; Start 04/02/20 at 12:00 Active Scripts Active Furosemide 40 Mg Tablet 40 Mg PO DAILY 90 Days Tramadol Hcl 50 Mg Tablet 50 Mg PO PRN Q6HRS PRN 6 Days Metoprolol Succinate ( Xl ) (Metoprolol Succinate) 25 Mg Tab.er.24h 12.5 Mg PO DAILY 90 Days Clopidogrel (Clopidogrel Bisulfate) 75 Mg Tablet 75 Mg PO DAILYWBKFT 90 Days Lisinopril 10 Mg Tablet 1 Tab PO DAILY 90 Days Atorvastatin Calcium 80 Mg Tablet 80 Mg PO QHS 90 Days Reported Klor-Con M20 (Potassium Chloride) 20 Meq Tab.er.prt 20 Meq PO TID Pantoprazole Sodium (Pantoprazole Sodium) 40 Mg Tablet.dr 40 Mg PO BID Duoneb 0.5-3(2.5) Mg/3 Ml (Albuterol/Ipratropium) 3 Ml Ampul.neb 3 Ml NEB PRN Q6HRS PRN Acetaminophen 325 Mg Tablet 1 Tab PO PRN Q6HRS PRN 24 Days Triumeq Tablet (Abacavir/Dolutegravir/Lamivudi) 1 Each Tablet 1 Tab PO DAILY 30 Days Gabapentin (Gabapentin) 300 Mg Capsule 100 Mg PO TID Children's Aspirin (Aspirin) 81 Mg Tab.chew 1 Tab PO DAILY 30 Days Vitals/I & O Vital Sign - Last 24 Hours 04/01/20 04/01/20 04/01/20 04/01/20 11:00 11:14 11:36 12:00 Pulse 71 Resp 20 B/P (MAP) 92/40 (57) Pulse Ox 100 100 100 O2 Delivery Ventilator Ventilator Mechanical Ventilator O2 Flow Rate 15.0 04/01/20 04/01/20 04/01/20 04/01/20 12:00 12:28 13:00 14:00 Temp 98.3 98.3 Pulse 76 72 82 Resp 20 20 20 20 B/P (MAP) 140/99 (113) 146/81 (102) 105/72 (83) Pulse Ox 100 100 100 100 O2 Delivery Ventilator Ventilator Ventilator Ventilator 04/01/20 04/01/20 04/01/20 04/01/20 15:00 15:03 16:00 16:00 Temp 99.9 99.9 Pulse 84 80 Resp 20 20 B/P (MAP) 125/67 (86) 117/66 (83) Pulse Ox 100 100 100 O2 Delivery Ventilator Ventilator Ventilator Mechanical Ventilator 04/01/20 04/01/20 04/01/20 04/01/20 17:00 18:00 19:00 20:00 Pulse 77 70 92 Resp 20 20 24 B/P (MAP) 103/64 (77) 136/77 (96) 100/54 (69) Pulse Ox 100 100 100 O2 Delivery Ventilator Ventilator Ventilator Mechanical Ventilator 04/01/20 04/01/20 04/01/20 04/01/20 20:00 20:28 21:00 22:00 Temp 98.9 98.9 Pulse 70 69 64 Resp 20 20 20 B/P (MAP) 125/72 (89) 122/69 (86) 106/69 (81) Pulse Ox 100 100 100 100 O2 Delivery Ventilator Ventilator Ventilator Ventilator 04/01/20 04/02/20 04/02/20 04/02/20 23:00 00:00 00:00 00:40 Temp 98.1 98.1 Pulse 62 62 Resp 20 26 B/P (MAP) 131/79 (96) 139/85 (103) Pulse Ox 100 100 100 O2 Delivery Ventilator Mechanical Ventilator Ventilator Ventilator 04/02/20 04/02/20 04/02/20 04/02/20 01:00 02:00 03:00 04:00 Pulse 66 72 69 Resp 22 20 20 B/P (MAP) 130/64 (86) 152/83 (106) 105/62 (76) Pulse Ox 100 100 100 O2 Delivery Ventilator Ventilator Ventilator Mechanical Ventilator 04/02/20 04/02/20 04/02/20 04/02/20 04:00 04:55 05:00 06:00 Temp 97.9 97.9 Pulse 90 78 63 Resp 22 20 20 B/P (MAP) 135/90 (105) 178/75 (109) 168/74 (105) Pulse Ox 100 100 100 100 O2 Delivery Ventilator Ventilator Ventilator Ventilator 04/02/20 04/02/20 04/02/20 04/02/20 07:00 07:40 07:53 08:00 Pulse 77 84 Resp 20 B/P (MAP) 191/88 (122) 172/112 Pulse Ox 99 100 O2 Delivery Ventilator Ventilator Mechanical Ventilator 04/02/20 04/02/20 08:00 09:00 Temp 99.6 99.6 Pulse 99 72 Resp 20 20 B/P (MAP) 146/84 (104) 141/89 (106) Pulse Ox 99 100 O2 Delivery Ventilator Ventilator Intake and Output 04/01/20 04/01/20 04/02/20 14:59 22:59 06:59 Intake Total 284.85 ml 1313.44 ml 1741 ml Output Total 380 ml 575 ml 430 ml Balance -95.15 ml 738.44 ml [address] HEAD/BRAIN WO Date: 04/02/2020 7:47 AM Clinical Indication: Reason: Post code; anoxic brain injury / Spl. Instructions: / History: Comparison: None. Technique: 5 mm axial tomographic images were obtained of the head without contrast. These were viewed on brain and bone windows. One or more of the following dose reduction techniques were utilized: Automated exposure control (AEC), Adjustment of mA and/or kV according to patient size, Use of iterative reconstruction technique such as ASiR, CT scan done according to ALARA and image gently/image wisely Findings: The brain parenchyma is normal in attenuation. No intra- or extra-axial mass or fluid collection. No acute hemorrhage. The ventricles are normal in size, shape, and morphology. The crump-white matter junction is normal. The subarachnoid cisterns are patent. The visualized paranasal sinuses are normal. The visualized portions of the orbits and globes are normal. The mastoid air cells are clear. The store clerk cashier topogram shows no lytic lesion or fracture. Impression: No acute hemorrhage, loss of crump-white differentiation, or gyral swelling. Justicifation of Admission Dx: Justifications for Admission: Justification of Admission Dx: Yes ERIN MAYEN MD Apr 02, 2020 10:18
--- NOTE | 2020-04-02 10:26 | PDOC ---
PULMONARY PROGRESS NOTES DATE: 04/02/20 TIME: 10:23 Subjective Pt. is on Fi02 40% and PEEP of 5 extubated 03/26, re-intubated for 03/26--V-Tac Arrest on primacor gtt S/P cardiac cath 03/27/20-- clean Low grade fever overnight Vitals Vital Signs Date Time Temp Pulse Resp B/P (MAP) Pulse Ox O2 Delivery O2 Flow Rate FiO2 04/02/20 09:00 72 20 141/89 (106) 100 Ventilator 04/02/20 08:00 99.6 99.6 04/01/20 11:36 15.0 Comments Intubated/sedated Cardiovascular: S1, S2 Extremities: No Edema Skin: Warm, Dry Labs Laboratory Tests Test 03/31/20 17:35 04/01/20 05:00 04/01/20 07:00 04/02/20 05:10 Glucose (Fingerstick) 86 mg/dL (70-99) White Blood Count 10.6 x10^3/uL (4.0-11.0) 9.1 x10^3/uL (4.0-11.0) Red Blood Count 2.86 x10^6/uL (4.30-5.70) 2.95 x10^6/uL (4.30-5.70) Hemoglobin 7.1 g/dL (13.0-17.5) 7.3 g/dL (13.0-17.5) Hematocrit 22.4 % (39.0-53.0) 23.0 % (39.0-53.0) Mean Corpuscular Volume 79 fL (79-100) 78 fL (79-100) Mean Corpuscular Hemoglobin 25 pg (25-35) 25 pg (25-35) Mean Corpuscular Hemoglobin Concent 32 g/dL (31-37) 32 g/dL (31-37) Red Cell Distribution Width 17.8 % (11.5-14.5) 18.3 % (11.5-14.5) Platelet Count 361 x10^3/uL (140-400) 413 x10^3/uL (140-400) Sodium Level 148 mmol/L (136-145) 144 mmol/L (136-145) Potassium Level 3.6 mmol/L (3.5-5.1) 3.3 mmol/L (3.5-5.1) Chloride Level 111 mmol/L (98-107) 108 mmol/L (98-107) Carbon Dioxide Level 23 mmol/L (21-32) 24 mmol/L (21-32) Anion Gap 14 (6-14) 12 (6-14) Blood Urea Nitrogen 7 mg/dL (8-26) 4 mg/dL (8-26) Creatinine 1.1 mg/dL (0.7-1.3) 1.0 mg/dL (0.7-1.3) Estimated GFR (Cockcroft-Gault) 85.1 94.9 BUN/Creatinine Ratio 6 (6-20) 4 (6-20) Glucose Level 85 mg/dL (70-99) 86 mg/dL (70-99) Calcium Level 8.5 mg/dL (8.5-10.1) 8.5 mg/dL (8.5-10.1) Magnesium Level 2.1 mg/dL (1.8-2.4) 1.8 mg/dL (1.8-2.4) Total Bilirubin 0.4 mg/dL (0.2-1.0) 0.3 mg/dL (0.2-1.0) Aspartate Amino Transf (AST/SGOT) 16 U/L (15-37) 14 U/L (15-37) Alanine Aminotransferase (ALT/SGPT) 10 U/L (16-63) 10 U/L (16-63) Alkaline Phosphatase 61 U/L (46-116) 64 U/L (46-116) Total Protein 6.8 g/dL (6.4-8.2) 6.9 g/dL (6.4-8.2) Albumin 2.0 g/dL (3.4-5.0) 2.1 g/dL (3.4-5.0) Albumin/Globulin Ratio 0.4 (1.0-1.7) 0.4 (1.0-1.7) O2 Saturation 97 % (92-99) Arterial Blood pH 7.39 (7.35-7.45) Arterial Blood pCO2 at Patient Temp 37 mmHg (35-46) Arterial Blood pO2 at Patient Temp 97 mmHg (75-108) Arterial Blood HCO3 22 mmol/L (21-28) Arterial Blood Base Excess -3 mmol/L (-3-3) FiO2 40/vent Phosphorus Level 4.1 mg/dL (2.6-4.7) Test 04/02/20 07:40 O2 Saturation 97 % (92-99) Arterial Blood pH 7.41 (7.35-7.45) Arterial Blood pCO2 at Patient Temp 37 mmHg (35-46) Arterial Blood pO2 at Patient Temp 96 mmHg (75-108) Arterial Blood HCO3 23 mmol/L (21-28) Arterial Blood Base Excess -1 mmol/L (-3-3) FiO2 40 Laboratory Tests Test 04/02/20 05:10 04/02/20 07:40 White Blood Count 9.1 x10^3/uL (4.0-11.0) Red Blood Count 2.95 x10^6/uL (4.30-5.70) Hemoglobin 7.3 g/dL (13.0-17.5) Hematocrit 23.0 % (39.0-53.0) Mean Corpuscular Volume 78 fL (79-100) Mean Corpuscular Hemoglobin 25 pg (25-35) Mean Corpuscular Hemoglobin Concent 32 g/dL (31-37) Red Cell Distribution Width 18.3 % (11.5-14.5) Platelet Count 413 x10^3/uL (140-400) Sodium Level 144 mmol/L (136-145) Potassium Level 3.3 mmol/L (3.5-5.1) Chloride Level 108 mmol/L (98-107) Carbon Dioxide Level 24 mmol/L (21-32) Anion Gap 12 (6-14) Blood Urea Nitrogen 4 mg/dL (8-26) Creatinine 1.0 mg/dL (0.7-1.3) Estimated GFR (Cockcroft-Gault) 94.9 BUN/Creatinine Ratio 4 (6-20) Glucose Level 86 mg/dL (70-99) Calcium Level 8.5 mg/dL (8.5-10.1) Phosphorus Level 4.1 mg/dL (2.6-4.7) Magnesium Level 1.8 mg/dL (1.8-2.4) Total Bilirubin 0.3 mg/dL (0.2-1.0) Aspartate Amino Transf (AST/SGOT) 14 U/L (15-37) Alanine Aminotransferase (ALT/SGPT) 10 U/L (16-63) Alkaline Phosphatase 64 U/L (46-116) Total Protein 6.9 g/dL (6.4-8.2) Albumin 2.1 g/dL (3.4-5.0) Albumin/Globulin Ratio 0.4 (1.0-1.7) O2 Saturation 97 % (92-99) Arterial Blood pH 7.41 (7.35-7.45) Arterial Blood pCO2 at Patient Temp 37 mmHg (35-46) Arterial Blood pO2 at Patient Temp 96 mmHg (75-108) Arterial Blood HCO3 23 mmol/L (21-28) Arterial Blood Base Excess -1 mmol/L (-3-3) FiO2 40 Medications Active Scripts Medications Dose Route/Sig Max Daily Dose Days Date Category Furosemide 40 Mg Tablet 40 Mg PO DAILY 02/02/20 Rx Tramadol Hcl 50 Mg Tablet 50 Mg PO PRN Q6HRS PRN 6 02/02/20 Rx Metoprolol Succinate ( Xl ) (Metoprolol Succinate) 25 Mg Tab.er.24h 12.5 Mg PO DAILY 02/02/20 Rx Clopidogrel (Clopidogrel Bisulfate) 75 Mg Tablet 75 Mg PO DAILYWBKFT 02/02/20 Rx Lisinopril 10 Mg Tablet 1 Tab PO DAILY 02/02/20 Rx Atorvastatin Calcium 80 Mg Tablet 80 Mg PO QHS 02/02/20 Rx Klor-Con M20 (Potassium Chloride) 20 Meq Tab.er.prt 20 Meq PO TID 01/31/20 Reported Pantoprazole Sodium (Pantoprazole Sodium) 40 Mg Tablet.dr 40 Mg PO BID 01/31/20 Reported Duoneb 0.5-3(2.5) Mg/3 Ml (Albuterol/Ipratropium) 3 Ml Ampul.neb 3 Ml NEB PRN Q6HRS PRN 01/31/20 Reported Acetaminophen 325 Mg Tablet 1 Tab PO PRN Q6HRS PRN 24 01/31/20 Reported Triumeq Tablet (Abacavir/Dolutegravir/Lamivudi) 1 Each Tablet 1 Tab PO DAILY 30 01/31/20 Reported Gabapentin (Gabapentin) 300 Mg Capsule 100 Mg PO TID 01/31/20 Reported Children's Aspirin (Aspirin) 81 Mg Tab.chew 1 Tab PO DAILY 30 01/31/20 Reported Comments CXR IMPRESSION: 1. Stable life support devices. 2. Progression of left basilar opacities. 3. Increased small left pleural effusion. Impression . IMPRESSION: 1. Acute hypoxemic respiratory failure secondary to [id number] cardiopulmonary arrest. extubated 03/26, re-intubated for V-Tac Arrest 2. History of ventricular fibrillation with previous sxz-ax-[id number] cardiac arrest. 3. History of coronary artery disease, status post percutaneous coronary intervention to the circumflex. 4. History of gastrointestinal bleed. 5. Chronic systolic heart failure. 6. Ischemic cardiomyopathy, ejection fraction 15%. 7. Status post pacemaker implantation. 8. Hypertension. 9. Hypokalemia. 10. Previous kidney injury requiring hemodialysis. 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 12. Human immunodeficiency virus. 13. Polysubstance use. Plan . Continue current vent support, 40% and PEEP of 5 Proceed with sedation and vacation and pressure support trial, Did not tolerate Pressure support 2/2 Uncontrolled HTN Lasix today w/ KCL replacement Follow Cardiology recs ---S/P cath 03/27/20 was clear--Life vest-- per cardiology -- remains on primacor gtt Replace electrolytes, prior to extubation Continue empiric antibiotics per infectious disease Follow GI recs PT/OT//ST DVT/GI prophylaxis Discussed with RN and RT Critical Care Time 1000-1030AM Pt. is FULL CODE NERISSA AGUILAR MD Apr 02, 2020 10:26
--- NOTE | 2020-04-02 10:30 | NUR ---
Sedation off at 1000. 1015 patient awake, able to track with eyes, moves all extremities. Although patient got anxious, HR into the 100's BP >200. Patient resedated at 1030 on Propofol and 25mcg of Fentanyl. Dr Galeas rounded after sedation vacation, and ordered IV Cardene PRN for tomorrow morning with sedation carlos. Family at bedside, will monitor.
[2020-04-02] MEDS: FUROSEMIDE 40 MG/4 ML VIAL. IVP SCH (10:43)
--- NOTE | 2020-04-02 11:06 | NUR ---
SS following up with discharge planning. SS reviewed pt chart and discussed with pt NR. Pt is currently on the vent at 40%. COVID19 negative. HIV positive. Pt on IV Zosyn and Milrinone drip. Possible AICD placement. Pt's family requesting full aggressive care but SS was notified that pt has stated when alert that he does not want aggressive measures. Per RN, plan to extubate and wake up today so that physicians can speak with pt to determine his wants for his medical needs. SS will continue to follow for discharge planning.
--- NOTE | 2020-04-02 11:37 | PDOC ---
[employer] PROGRESS NOTE Date of Service DOS: DATE: 04/02/20 TIME: 11:35 Chief Complaint Chief Complaint 1. out of hospital arrest , witness cardiac arrest; Defibrillation // AMI ruled out. 2. H/o Vfib probable ischemic in nature, antiarrhythmics discontinued in past due to QTc prolongation of 600. 3. Acute hypoxic respiratory failure requiring vent support 4. CAD s/p PCI/BMS to the LCx 12/11/19. Treated with ASA,Brilinta initially, which was held due to recurrent GIB requiring transfusions.Due to recent PCI/BMS, Plavix was resumed while at [facility]. ASA was d/c'd 5. Chronic systolic CHF 6. ischemic cardiomyopathy LVEF 20-25%. 7. SSS s/p leadless PPM 8. Hypertension; // requiring pressor support 9. Hypokalemia, hypomagnesemia 10. H/o DAIJA requiringHD; renal function improvedand HD catheter removed 11. 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 HIV 13. Substance abuse; UDS + cocaine , ALCOHOL, TOBACCO 14. Leukocytosis, fevers. ? sepsis Covid negative. 15. H/o Vfib OOH arrest; probable ischemic in nature, antiarrhythmics discontinued in past due to QTc prolongation of 600. EKG at [facility] with QTc 507, 528. 16. Human immunodeficiency virus, CD4 was 403 on 01/16 viral load less than 20 on 01/23on [facility]. 17. History of ventricular tachycardia, Coronary artery disease, status post PCI. 18. Status post pacemaker for bradycardia 12/27 at [place]. 19. hypernatremia, volume excess History of Present Illness History of Present Illness 04/02/2020 Patient seen and examined in ICU He remains intubated Assist-control/12/05 500/40% FiO2 with 5 of PEEP Discussed with RN Chart reviewed Patient on milrinone drip He is also on propofol drip for sedation He remains critically ill Identification/Chief Complaint Chief Complaint admitted to icu , out of hospial arrest CAD s/p PCI/stent, cardiomyopathy, and prior cardiac arrest, presented secondary to cardiac arrest at home. Was at home with partner, Stevenson, watching television. Patient suddenly started breathing more deeply and began gasping for air. Eyes were wide and glassy. Was unresponsive. Partner was unable to feel pulse so he put him on the floor, called EMS and began chest compressions. Partner reports him drinking 3 malt beverages that evening while watching TV. No known sick contacts. EMS arrived within minutes. ROSC returned following one defibrillation. Although partner declined drug use, Narcan was administered en route due to pinpoint pupils. Limited effect from the Narcan. UDS was + for cocaine. IS COVID 19 PUI hx cardiac arrest on December 19, 2019. Patient was apparently found arrest in his car EMS noted in v-fib. ROSC was achieved following 1 defibrillation and 1 round of epi.//activated as STEMI with LBBB. Emergent cath notable for blockage of left circumflex. //PCI/BMS to the Left circumflex. 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 LVEF noted at 20-25%. Developed DAIJA due to cardiogenic shock. had multiple episodes of bradycardia/significant pauses mostly related to suctioning. then leadlessPPM placement.Treated for Klebsiella PNA as well. course further complicated by GIB requiring tranfusion. 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 Remains on vent, FiO2 40%, PEEP 5. Swelling noted to his right arm, will obtain ultrasound to evaluate. Discussed with RN, will attempt trial extubation tomorrow. 03/31 Patient seen in ICU. Afebrile. On vent FiO2 40%, PEEP 5. Hemoglobin 7.2 and holding steady. We will continue to monitor and transfuse <7. Antibiotics per ID. 03/30 Afebrile. On vent, FiO2 40%, PEEP 5. Patient needs AICD, but some significant complaints issues. I believe cardiology is to consult neurology for further input on this issue. Charts and labs reviewed. 03/29 Patient remains in ICU on vent. FiO2 40%, PEEP 5. Discussed with RN, episode of V-tach overnight. Cardiology to consider AICD. Will continue with antibiotics and diuresis. 03/28 Afebrile. No acute events overnight. On vent, FiO2 40%, PEEP 5. Potassium low today, will replace. Continue supportive care and antibiotics. Discussed with RN 03/27 Patient seen in ICU. Breathing on mechanical ventilator, FiO2 60%, PEEP 5. Patient failed extubation yesterday. Continue Zosyn, Zyvox, p.o. vancomycin. 03/26 Patient seen and evaluated in ICU. On vent FiO2 35%, PEEP 5. Afebrile. Continue Zosyn, Zyvox, and p.o. vancomycin. Chart and labs reviewed, discussed with RN. Vitals/I&O Vitals/I&O: Vital Signs Date Time Temp Pulse Resp B/P (MAP) Pulse Ox O2 Delivery O2 Flow Rate FiO2 04/02/20 11:15 99 Ventilator 04/02/20 11:00 74 20 111/76 (88) 04/02/20 08:00 99.6 99.6 04/01/20 11:36 15.0 I & O 04/01/20 04/01/20 04/02/20 15:00 23:00 07:00 Intake Total 284.85 ml 1313.44 ml 1741 ml Output Total 380 ml 575 ml 430 ml Balance -95.15 ml 738.44 ml 1311 ml Physical Exam Physical Exam: GENERAL: Intubated, sedated. HEENT: Conjunctival suffusion. Pupils equal, reactive. ETT OGT present. NECK: Supple. LUNGS: Clear anteriorly. HEART: S1, S2, tachycardia. ABDOMEN: Obese, mildly distended. Bowel sounds present. EXTREMITIES: No edema or cyanosis. DERMATOLOGIC: Warm and dry. No generalized rash. NEUROLOGIC: Unable to assess. Labs Labs: Laboratory Tests Test 04/02/20 05:10 04/02/20 07:40 White Blood Count 9.1 x10^3/uL (4.0-11.0) Red Blood Count 2.95 x10^6/uL (4.30-5.70) Hemoglobin 7.3 g/dL (13.0-17.5) Hematocrit 23.0 % (39.0-53.0) Mean Corpuscular Volume 78 fL (79-100) Mean Corpuscular Hemoglobin 25 pg (25-35) Mean Corpuscular Hemoglobin Concent 32 g/dL (31-37) Red Cell Distribution Width 18.3 % (11.5-14.5) Platelet Count 413 x10^3/uL (140-400) Sodium Level 144 mmol/L (136-145) Potassium Level 3.3 mmol/L (3.5-5.1) Chloride Level 108 mmol/L (98-107) Carbon Dioxide Level 24 mmol/L (21-32) Anion Gap 12 (6-14) Blood Urea Nitrogen 4 mg/dL (8-26) Creatinine 1.0 mg/dL (0.7-1.3) Estimated GFR (Cockcroft-Gault) 94.9 BUN/Creatinine Ratio 4 (6-20) Glucose Level 86 mg/dL (70-99) Calcium Level 8.5 mg/dL (8.5-10.1) Phosphorus Level 4.1 mg/dL (2.6-4.7) Magnesium Level 1.8 mg/dL (1.8-2.4) Total Bilirubin 0.3 mg/dL (0.2-1.0) Aspartate Amino Transf (AST/SGOT) 14 U/L (15-37) Alanine Aminotransferase (ALT/SGPT) 10 U/L (16-63) Alkaline Phosphatase 64 U/L (46-116) Total Protein 6.9 g/dL (6.4-8.2) Albumin 2.1 g/dL (3.4-5.0) Albumin/Globulin Ratio 0.4 (1.0-1.7) O2 Saturation 97 % (92-99) Arterial Blood pH 7.41 (7.35-7.45) Arterial Blood pCO2 at Patient Temp 37 mmHg (35-46) Arterial Blood pO2 at Patient Temp 96 mmHg (75-108) Arterial Blood HCO3 23 mmol/L (21-28) Arterial Blood Base Excess -1 mmol/L (-3-3) FiO2 40 Assessment and Plan Assessmemt and Plan 1. out of hospital arrest , witness cardiac arrest; Defibrillation // AMI ruled out. 2. H/o Vfib probable ischemic in nature, antiarrhythmics discontinued in past due to QTc prolongation of 600. 3. Acute hypoxic respiratory failure requiring vent support 4. CAD s/p PCI/BMS to the LCx 12/11/19. Treated with ASA,Brilinta initially, which was held due to recurrent GIB requiring transfusions.Due to recent PCI/BMS, Plavix was resumed while at [facility]. ASA was d/c'd 5. Chronic systolic CHF 6. ischemic cardiomyopathy LVEF 20-25%. 7. SSS s/p leadless PPM 8. Hypertension; // requiring pressor support 9. Hypokalemia, hypomagnesemia 10. H/o DAIJA requiringHD; renal function improvedand HD catheter removed 11. 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 HIV 13. Substance abuse; UDS + cocaine , ALCOHOL, TOBACCO 14. Leukocytosis, fevers. ? sepsis Covid negative. 15. H/o Vfib OOH arrest; probable ischemic in nature, antiarrhythmics discontinued in past due to QTc prolongation of 600. EKG at [facility] with QTc 507, 528. 16. Human immunodeficiency virus, CD4 was 403 on 01/16 viral load less than 20 on 01/23on [facility]. 17. History of ventricular tachycardia, Coronary artery disease, status post PCI. 18. Status post pacemaker for bradycardia 12/27 at [place]. 19. hypernatremia, volume excess Plan ICU monitoring Vent weaning Cardiology is following Pulmonary is following Replace Mg, lytes Secondary prevention measures as able Resume Plavix. No ASA due to recent GIB Monitor LFTs Pressor support; wean as able Hold lisinopril, Toprol with hypotension Echo vent management Heparin drip Echo to assess LV systolic function if COVID PCR negative Tube feeding on hold per GI, concern for ileus follow other GI recommendations vent support assist-control mode 40% and a PEEP of 5 Continue Zosyn,Zyvox Continue p.o. vancomycin for prophylaxis with history of recurrent C. difficile Continue Triumeq Follow up labs and cultures. 35% and a PEEP of 5 He remains critically ill Appreciate subspecialist input CC time 32 min Comment Review of Relevant I have reviewed the following items joel (where applicable) has been applied. Medications: Current Medications Medications (Trade) Dose Ordered Sig/Guy Route PRN Reason Start Time Stop Time Status Last Admin Dose Admin Potassium Bicarbonate (Potassium Effervescent Tablet) 20 meq 1X ONCE PEG 04/01/20 16:15 04/01/20 16:16 DC 04/01/20 16:25 Potassium Chloride/Water 100 ml @ 100 mls/hr Q1H IV 04/02/20 07:30 04/02/20 09:29 DC 04/02/20 09:24 Magnesium Sulfate 50 ml @ 25 mls/hr 1X ONCE IV 04/02/20 07:30 04/02/20 09:29 DC 04/02/20 07:52 Potassium Bicarbonate (Potassium Effervescent Tablet) 40 meq 1X ONCE PEG 04/02/20 09:30 04/02/20 09:31 DC 04/02/20 09:34 Justifications for Admission Other Justification CARDIAC ARREST SERA GREGORIO III DO Apr 02, 2020 11:37
[2020-04-02] MEDS: DEXMEDETOMIDINE 400 MCG in IV NORMAL SALINE 100ML 96 ML IV PRN ×2 (11:45→18:42)
[2020-04-02] MEDS: ENOXAPARIN 40 MG/0.4 ML SYRINGE. SQ SCH (11:46)
--- NOTE | 2020-04-02 13:29 | PDOC ---
GREGORY REYNA CHIEF MECHANICAL ENGINEER 04/02/20 1329: CARDIO Progress Notes Date and Time Date of Service 04/02/20 Time of Evaluation 1320 Subjective Subjective: Other (intubated ) Vitals Vitals Vital Signs Date Time Temp Pulse Resp B/P (MAP) Pulse Ox O2 Delivery O2 Flow Rate FiO2 04/02/20 12:00 Mechanical Ventilator 04/02/20 12:00 98.9 70 20 106/73 (84) 100 98.9 04/01/20 11:36 15.0 Weight Weight [ ] Input and Output Intake and Output Intake and Output 04/02/20 07:00 Intake Total 3339.29 ml Output Total 1385 ml Balance 1954.29 ml IV Total 2304.29 ml Tube Feeding 835 ml Other 200 ml Output Urine Total 1385 ml Gastric Drainage Total 0 ml # Bowel Movements 2 Laboratory Labs Laboratory Tests Test 04/02/20 05:10 04/02/20 07:40 White Blood Count 9.1 x10^3/uL (4.0-11.0) Red Blood Count 2.95 x10^6/uL (4.30-5.70) Hemoglobin 7.3 g/dL (13.0-17.5) Hematocrit 23.0 % (39.0-53.0) Mean Corpuscular Volume 78 fL (79-100) Mean Corpuscular Hemoglobin 25 pg (25-35) Mean Corpuscular Hemoglobin Concent 32 g/dL (31-37) Red Cell Distribution Width 18.3 % (11.5-14.5) Platelet Count 413 x10^3/uL (140-400) Sodium Level 144 mmol/L (136-145) Potassium Level 3.3 mmol/L (3.5-5.1) Chloride Level 108 mmol/L (98-107) Carbon Dioxide Level 24 mmol/L (21-32) Anion Gap 12 (6-14) Blood Urea Nitrogen 4 mg/dL (8-26) Creatinine 1.0 mg/dL (0.7-1.3) Estimated GFR (Cockcroft-Gault) 94.9 BUN/Creatinine Ratio 4 (6-20) Glucose Level 86 mg/dL (70-99) Calcium Level 8.5 mg/dL (8.5-10.1) Phosphorus Level 4.1 mg/dL (2.6-4.7) Magnesium Level 1.8 mg/dL (1.8-2.4) Total Bilirubin 0.3 mg/dL (0.2-1.0) Aspartate Amino Transf (AST/SGOT) 14 U/L (15-37) Alanine Aminotransferase (ALT/SGPT) 10 U/L (16-63) Alkaline Phosphatase 64 U/L (46-116) Total Protein 6.9 g/dL (6.4-8.2) Albumin 2.1 g/dL (3.4-5.0) Albumin/Globulin Ratio 0.4 (1.0-1.7) O2 Saturation 97 % (92-99) Arterial Blood pH 7.41 (7.35-7.45) Arterial Blood pCO2 at Patient Temp 37 mmHg (35-46) Arterial Blood pO2 at Patient Temp 96 mmHg (75-108) Arterial Blood HCO3 23 mmol/L (21-28) Arterial Blood Base Excess -1 mmol/L (-3-3) FiO2 40 Microbiology Micro Microbiology 03/26/20 Urine Culture - Final, Complete 03/21/20 Gram Stain Evaluation - Final, Complete 03/21/20 Respiratory Culture - Final, Complete 03/20/20 Blood Culture - Final, Complete NO GROWTH AFTER 5 DAYS Physical Exam HEENT: Neck Supple W Full Motion Chest: Symmetric LUNGS: Other (mechanical vent ) Heart: RRR (SR with frequent PVCs) Abdomen: Other (soft ) Extremities: No Edema Neurology: other (mild sedation) Assessment Assessment 1. OOH, witness cardiac arrest; recurrent [place], VT arrest 07/21/20. On Amiodarone gtt. LHC with patent LCx stent. No lesions needing intervention. Further VT yesterday evening. S/p Lidocaine 3. Acute respiratory failure secondary to above; extubated, but reintubated following cardiac arrest due to [place], VT 07/21/20. Trial this am, but became significantly hypertensive 4. H/o Vfib OOH arrest; probable ischemic in nature, antiarrhythmics discontinued in past due to QTc prolongation. QTC 546 03/28 5. Acute on chronic systolic CHF 6. ICM; LVEF 20-25%. on milrinone 7. CAD s/p PCI/BMS to the LCx 12/11/19. 8. SSS s/p leadless PPM implantation ([employer] Micra). Device check with normal function 04/02/20 9. Leukocytosis, fevers. ? sepsis. off pressor support 10. Hypertension; labile this am 11. H/o DAIJA requiringHD; renal function improvedand HD catheter removed 12. 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 HIV 14. Substance abuse; UDS + cocaine at [facility] 15. Noncompliance 16. Tobaccoism 17. Hypokalemia, hypomagnesemia Recommendations Titrate off milrinone Continue Amiodarone for now. Monitor QTc. EKG in am Keep K > 4.0 and Mg > 2.0 Ongoing diuresis Secondary prevention measures as able. Plavix, statin therapy. May use Cardene gtt for BP control while trialing Lung optimization, vent management as per pulm Consideration of an ICD based on the patient's clinical course. Will discuss further once extubated. Trial in am Justicifation of Admission Dx: Justifications for Admission: Justification of Admission Dx: Yes SHYAM AJ MD 04/02/20 2300: CARDIO Progress Notes Plan Plan Pt. seen and examined. Agree with above LAWN CARE PROFESSIONAL note. No new issues. Await extubation. GREGORY REYNA APRN Apr 02, 2020 13:29 SHYAM AJ MD Apr 02, 2020 23:00
[2020-04-02] MEDS: ATORVASTATIN CALCIUM 40 MG TABLET. PO SCH (20:32)
[2020-04-03] VITALS (31 sets, daily range): BP systolic 101–193; BP diastolic 63–125
[2020-04-03] MEDS: fentaNYL HIGH DOSE PCA 55 ML IV PRN (00:18)
[2020-04-03] MEDS: PROPOFOL 100 ML IV PRN ×2 (01:35→05:44)
[2020-04-03] MEDS: DEXMEDETOMIDINE 400 MCG in IV NORMAL SALINE 100ML 96 ML IV PRN (01:36)
[2020-04-03 05:14] LABS: CALCIUM 8.6 mg/dL (8.5-10.1); GFR 94.9; MAGNESIUM 2.4 mg/dL (1.8-2.4); POTASSIUM 3.8 mmol/L (3.5-5.1)
[2020-04-03] MEDS: PIPERACILLIN/TAZOBACTAM 3.375 GM in IV NORMAL SALINE 50ML 50 ML IV SCH ×4 (05:42→23:40)
[2020-04-03 07:40] LABS: BASE EXCESS ABG -1 mmol/L (-3-3); HCO3 ABG 22 mmol/L (21-28); PCO2 ABG 32 mmHg (35-46); PO2 ABG 117 mmHg (75-108); SAT O2 ABG 98 % (92-99)
[2020-04-03 07:42] LABS: FIO2 ABG 40
--- NOTE | 2020-04-03 08:09 | PDOC ---
Infectious Disease Note Subjective: Subjective Patient intubated/sedated Vital Signs: Vital Signs Vital Signs Date Time Temp Pulse Resp B/P (MAP) Pulse Ox O2 Delivery O2 Flow Rate FiO2 04/03/20 07:41 Mechanical Ventilator 04/03/20 07:28 100 04/03/20 07:00 98.6 78 20 149/87 (107) 98.6 Physical Exam: PHYSICAL EXAM GENERAL: Intubated, sedated. HEENT: Conjunctival suffusion. Pupils equal, reactive. ETT OGT present. NECK: Supple. LUNGS: Clear anteriorly. HEART: S1, S2, tachycardia. ABDOMEN: Obese, mildly distended. Bowel sounds present. EXTREMITIES: No edema or cyanosis. DERMATOLOGIC: Warm and dry. No generalized rash. NEUROLOGIC: Unable to assess. Medications: Inpatient Meds: Current Medications Medications (Trade) Dose Ordered Sig/Guy Start Time Stop Time Status Last Admin Dose Admin Acetaminophen (Tylenol) 650 mg PRN Q6HRS PRN 03/20/20 09:00 03/27/20 20:51 650 MG Amiodarone HCl (Cordarone) 400 mg DAILY 03/30/20 09:00 04/02/20 07:53 400 MG Amiodarone HCl 150 mg/Dextrose 103 ml @ 618 mls/hr 1X ONCE 03/26/20 19:45 03/26/20 19:54 DC 03/26/20 19:44 618 MLS/HR Amiodarone HCl 450 mg/Dextrose 259 ml @ 16.7 mls/hr CONT PRN 03/27/20 03:00 03/27/20 18:16 DC 03/27/20 18:15 16.7 MLS/HR Atorvastatin Calcium (Lipitor) 80 mg QHS 03/20/20 21:00 04/02/20 20:32 80 MG Atropine Sulfate (ATROPINE 0.5mg SYRINGE) 0.5 mg PRN Q5MIN PRN 03/27/20 01:45 03/27/20 16:31 DC Chlorhexidine Gluconate (Peridex) 15 ml BID 03/26/20 21:00 03/28/20 11:44 DC 03/27/20 20:51 15 ML Clopidogrel Bisulfate (Plavix) 75 mg [id number] 03/20/20 12:00 04/02/20 07:53 75 MG Dexmedetomidine HCl 400 mcg/ Sodium Chloride 100 ml @ 0 mls/hr CONT PRN 03/27/20 01:45 04/03/20 01:36 9 MLS/HR Docusate Sodium (Colace Solution) 100 mg BID 03/20/20 09:00 03/26/20 15:28 DC 03/26/20 08:35 100 MG Dopamine HCl/ Dextrose 250 ml @ 17.681 mls/ hr CONT PRN 03/20/20 04:30 Enoxaparin Sodium (Lovenox 40mg Syringe) 40 mg Q24H 04/02/20 12:00 04/02/20 11:46 40 MG Epinephrine HCl (EPINEPHrine SYRINGE) 1 mg STK-MED ONCE 03/29/20 12:00 03/30/20 13:02 DC Etomidate (Amidate) 20 mg STK-MED ONCE 03/26/20 23:34 03/26/20 23:35 DC Famotidine (Pepcid Vial) 20 mg BID 03/20/20 11:00 03/20/20 12:35 DC Fentanyl Citrate 30 ml @ 0 mls/hr CONT PRN 03/26/20 19:15 UNV Fentanyl Citrate (Fentanyl 2ml Vial) 50 mcg PRN Q1HR PRN 03/26/20 19:15 Furosemide (Lasix) 40 mg DAILY 03/22/20 11:00 04/02/20 10:43 40 MG Haloperidol Lactate (Haldol Inj) 5 mg PRN Q6HRS PRN 03/23/20 21:00 03/24/20 08:52 DC Heparin Sodium (Porcine) (Heparin Sodium) 2,400 unit PRN Q6HRS PRN 03/20/20 04:30 03/22/20 10:15 DC 03/21/20 14:17 2,400 UNIT Heparin Sodium/ Dextrose 250 ml @ 0 mls/hr CONT PRN 03/20/20 04:30 03/22/20 10:15 DC 03/21/20 22:15 19.8 MLS/HR Heparin Sodium/ Sodium Chloride (HEPARIN for ARTERIAL LINE FLUSH) 1,000 unit 1X ONCE 03/27/20 10:00 03/27/20 10:01 DC 03/27/20 10:00 1,000 UNIT Info (CONTRAST GIVEN -- Rx MONITORING) 1 each PRN DAILY PRN 03/27/20 10:00 03/29/20 09:59 DC Info (Icu Electrolyte Protocol) 1 ea DAILY 03/21/20 09:00 04/02/20 07:54 1 EA Iodixanol (Visipaque 320) 100 ml 1X ONCE 03/27/20 10:00 03/27/20 10:01 DC 03/27/20 11:05 107 ML Labetalol HCl (Normodyne Iv Push) 10 mg PRN Q2HR PRN 03/26/20 19:15 Lidocaine HCl (Lidocaine 1% 20ml Vial) 20 ml 1X ONCE 03/27/20 10:00 03/27/20 10:01 DC 03/27/20 10:41 13 ML Lidocaine HCl (Lidocaine HCl 2% Abboject) 100 mg STK-MED ONCE 03/29/20 12:00 03/30/20 13:02 DC Linezolid/Dextrose 300 ml @ 300 mls/hr Q12HR 03/21/20 09:00 03/28/20 08:39 DC 03/28/20 08:19 300 MLS/HR Lorazepam (Ativan Inj) 1 mg PRN Q1HR PRN 03/20/20 04:45 03/26/20 15:29 DC 03/26/20 14:30 1 MG Magnesium Sulfate 50 ml @ 25 mls/hr 1X ONCE 04/02/20 12:00 04/02/20 13:59 DC 04/02/20 11:47 25 MLS/HR Midazolam HCl 100 ml @ 0 mls/hr CONT PRN 03/26/20 19:15 04/01/20 12:21 5 MLS/HR Milrinone Lactate/ Dextrose 100 ml @ 6.735 mls/ hr CONT PRN 03/30/20 15:30 04/01/20 20:33 6.735 MLS/HR Morphine Sulfate (Morphine Sulfate) 4 mg PRN Q1HR PRN 03/26/20 19:15 03/28/20 22:35 DC Nicardipine HCl 50 mg/Sodium Chloride 250 ml @ 25 mls/hr CONT PRN 04/02/20 12:00 Non-Formulary Medication (ABACAVIR/ DOLUTEGRAVIR/ LAMIVUDINE (Triumeq) tablet) 1 ea DAILY 03/20/20 17:00 04/02/20 07:53 1 EA Norepinephrine Bitartrate 8 mg/ Dextrose 258 ml @ 18.247 mls/ hr CONT PRN 03/20/20 04:15 03/28/20 19:12 18.247 MLS/HR Olanzapine (ZyPREXA ZYDIS) 5 mg PRN Q4HRS PRN 03/26/20 19:15 Ondansetron HCl (Zofran) 4 mg PRN Q6HRS PRN 03/20/20 10:30 03/26/20 18:17 4 MG Pantoprazole Sodium (PROTONIX VIAL for IV PUSH) 40 mg DAILYAC 03/20/20 12:30 04/02/20 07:52 40 MG Piperacillin Sod/ Tazobactam Sod (Zosyn Per Pharmacy) 1 each PRN DAILY PRN 03/20/20 09:30 Piperacillin Sod/ Tazobactam Sod 3.375 gm/Sodium Chloride 50 ml @ 100 mls/hr Q6HRS 03/20/20 10:00 04/03/20 05:42 100 MLS/HR Potassium Bicarbonate (Potassium Effervescent Tablet) 40 meq 1X ONCE 04/02/20 09:30 04/02/20 09:31 DC 04/02/20 09:34 40 MEQ Potassium Chloride/Water 100 ml @ 100 mls/hr Q1H 04/02/20 07:30 04/02/20 09:29 DC 04/02/20 09:24 100 MLS/HR Propofol 100 ml @ 0 mls/hr CONT PRN 03/26/20 19:15 04/03/20 05:44 18.7 MLS/HR Sodium Bicarbonate (Sodium Bicarb Adult 8.4% Syr) 50 meq STK-MED ONCE 03/26/20 21:00 03/27/20 19:23 DC Sodium Chloride 1,000 ml @ 55 mls/hr [id number] 04/03/20 12:00 Sodium Chloride (Normal Saline Flush) 3 ml QSHIFT PRN 03/20/20 10:30 Succinylcholine Chloride (Anectine) 200 mg STK-MED ONCE 03/26/20 23:34 03/26/20 23:35 DC Vancomycin HCl (Vancomycin Oral Solution) 125 mg BID 03/20/20 21:30 04/02/20 20:32 125 MG Labs: Lab Laboratory Tests Test 04/02/20 13:56 04/03/20 04:58 04/03/20 07:30 Potassium Level 4.4 mmol/L (3.5-5.1) 3.8 mmol/L (3.5-5.1) Sodium Level 145 mmol/L (136-145) Chloride Level 109 mmol/L (98-107) Carbon Dioxide Level 24 mmol/L (21-32) Anion Gap 12 (6-14) Blood Urea Nitrogen 5 mg/dL (8-26) Creatinine 1.0 mg/dL (0.7-1.3) Estimated GFR (Cockcroft-Gault) 94.9 Glucose Level 114 mg/dL (70-99) Calcium Level 8.6 mg/dL (8.5-10.1) Magnesium Level 2.4 mg/dL (1.8-2.4) O2 Saturation 98 % (92-99) Arterial Blood pH 7.46 (7.35-7.45) Arterial Blood pCO2 at Patient Temp 32 mmHg (35-46) Arterial Blood pO2 at Patient Temp 117 mmHg (75-108) Arterial Blood HCO3 22 mmol/L (21-28) Arterial Blood Base Excess -1 mmol/L (-3-3) FiO2 40 Objective: Assessment: 1. Fever, likely aspiration. 2. Witnessed cardiac arrest, status post defibrillation. 3. Leukocytosis and lactic acidosis. 4. Human immunodeficiency virus, CD4 was 403 on 01/16 viral load less than 20 on 01/23on Triumeq. 5. Acute hypoxic respiratory failure 6. History of ventricular tachycardia, Coronary artery disease, status post PCI. 7. Status post pacemaker for bradycardia 12/27 at [place]. 8. History of acute kidney injury, on hemodialysis in the past. 9. 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 10. Substance dependence. UDS positive for cocaine at outside hospital. 11. Hypertension/hyperlipidemia 12. Hypokalemia/hypomagnesemia. 13. H/O Chronic systolic congestive heart failure. 14. History of rectal abscess. 15. History of Necrotizing Pneumonia with Klebsiella at [facility] November 2019 16. V. fib arrest, torsades 19. Severe cardiomyopathy 20. Anemia of chronic disease 21. History of noncompliance Plan: Plan of Care Continue Zosyn, Continue p.o. vancomycin for prophylaxis with history of recurrent C. difficile Continue Triumeq Follow up labs and cultures. Continue supportive care CT head neg for acute process Discussed with nursing. MILLY NICOLE MD Apr 03, 2020 08:09
[2020-04-03] MEDS: AMIODARONE HCL 200 MG TABLET. PO SCH (08:15)
[2020-04-03] MEDS: LAMIVUDINE PO SCH (08:16)
[2020-04-03] MEDS: FUROSEMIDE 40 MG/4 ML VIAL. IVP SCH (08:16)
[2020-04-03] MEDS: PANTOPRAZOLE IV PUSH 40 MG VIAL. IVP SCH (08:16)
[2020-04-03] MEDS: ABACAVIR PO SCH (08:16)
[2020-04-03] MEDS: DOLUTEGRAVIR PO SCH (08:16)
[2020-04-03] MEDS: CLOPIDOGREL BISULFATE 75 MG TABLET PO SCH (08:16)
[2020-04-03] MEDS: VANCOMYCIN 125 MG/2.5 ML ORAL SOLUTION. PO SCH ×2 (08:17→20:19)
[2020-04-03] MEDS: ELECTROLYTE (ICU) PROTOCOL. MC SCH (09:00)
--- NOTE | 2020-04-03 09:05 | PDOC ---
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 Coronary artery disease status-post stent, cardiomyopathy requiring defibrillator placement which has not been done yet due to his drug use. Plan Continue current supportive care. Subjective None Objective Vital Signs Date Time Temp Pulse Resp B/P (MAP) Pulse Ox O2 Delivery O2 Flow Rate FiO2 04/03/20 08:15 77 153/91 04/03/20 08:00 20 100 Ventilator 04/03/20 07:00 98.6 98.6 Intake and Output 04/03/20 07:00 Intake Total 3746.19 ml Output Total 3755 ml Balance -8.81 ml IV Total 2550.19 ml Tube Feeding 896 ml Other 300 ml Output Urine Total 3755 ml # Bowel Movements 1 PHYSICAL EXAM Sedated on vent, nonresponsive PERRL. EOMI. CN: no focal findings. Muscle tone: normal. Muscle strength: Moves all extremities to minimal stimulation DTR: 1+ Plantar reflex: Flexor Gait: not examined in bed. Sensory exam: no abnormal findings. No cerebellar signs elicited. Review of Relevant I have reviewed the following items joel (where applicable) has been applied. Labs Laboratory Tests Test 04/02/20 05:10 04/02/20 07:40 04/02/20 13:56 04/03/20 04:58 White Blood Count 9.1 x10^3/uL (4.0-11.0) Red Blood Count 2.95 x10^6/uL (4.30-5.70) Hemoglobin 7.3 g/dL (13.0-17.5) Hematocrit 23.0 % (39.0-53.0) Mean Corpuscular Volume 78 fL (79-100) Mean Corpuscular Hemoglobin 25 pg (25-35) Mean Corpuscular Hemoglobin Concent 32 g/dL (31-37) Red Cell Distribution Width 18.3 % (11.5-14.5) Platelet Count 413 x10^3/uL (140-400) Sodium Level 144 mmol/L (136-145) 145 mmol/L (136-145) Potassium Level 3.3 mmol/L (3.5-5.1) 4.4 mmol/L (3.5-5.1) 3.8 mmol/L (3.5-5.1) Chloride Level 108 mmol/L (98-107) 109 mmol/L (98-107) Carbon Dioxide Level 24 mmol/L (21-32) 24 mmol/L (21-32) Anion Gap 12 (6-14) 12 (6-14) Blood Urea Nitrogen 4 mg/dL (8-26) 5 mg/dL (8-26) Creatinine 1.0 mg/dL (0.7-1.3) 1.0 mg/dL (0.7-1.3) Estimated GFR (Cockcroft-Gault) 94.9 94.9 BUN/Creatinine Ratio 4 (6-20) Glucose Level 86 mg/dL (70-99) 114 mg/dL (70-99) Calcium Level 8.5 mg/dL (8.5-10.1) 8.6 mg/dL (8.5-10.1) Phosphorus Level 4.1 mg/dL (2.6-4.7) Magnesium Level 1.8 mg/dL (1.8-2.4) 2.4 mg/dL (1.8-2.4) Total Bilirubin 0.3 mg/dL (0.2-1.0) Aspartate Amino Transf (AST/SGOT) 14 U/L (15-37) Alanine Aminotransferase (ALT/SGPT) 10 U/L (16-63) Alkaline Phosphatase 64 U/L (46-116) Total Protein 6.9 g/dL (6.4-8.2) Albumin 2.1 g/dL (3.4-5.0) Albumin/Globulin Ratio 0.4 (1.0-1.7) O2 Saturation 97 % (92-99) Arterial Blood pH 7.41 (7.35-7.45) Arterial Blood pCO2 at Patient Temp 37 mmHg (35-46) Arterial Blood pO2 at Patient Temp 96 mmHg (75-108) Arterial Blood HCO3 23 mmol/L (21-28) Arterial Blood Base Excess -1 mmol/L (-3-3) FiO2 40 Test 04/03/20 07:30 O2 Saturation 98 % (92-99) Arterial Blood pH 7.46 (7.35-7.45) Arterial Blood pCO2 at Patient Temp 32 mmHg (35-46) Arterial Blood pO2 at Patient Temp 117 mmHg (75-108) Arterial Blood HCO3 22 mmol/L (21-28) Arterial Blood Base Excess -1 mmol/L (-3-3) FiO2 40 Laboratory Tests Test 04/02/20 13:56 04/03/20 04:58 04/03/20 07:30 Potassium Level 4.4 mmol/L (3.5-5.1) 3.8 mmol/L (3.5-5.1) Sodium Level 145 mmol/L (136-145) Chloride Level 109 mmol/L (98-107) Carbon Dioxide Level 24 mmol/L (21-32) Anion Gap 12 (6-14) Blood Urea Nitrogen 5 mg/dL (8-26) Creatinine 1.0 mg/dL (0.7-1.3) Estimated GFR (Cockcroft-Gault) 94.9 Glucose Level 114 mg/dL (70-99) Calcium Level 8.6 mg/dL (8.5-10.1) Magnesium Level 2.4 mg/dL (1.8-2.4) O2 Saturation 98 % (92-99) Arterial Blood pH 7.46 (7.35-7.45) Arterial Blood pCO2 at Patient Temp 32 mmHg (35-46) Arterial Blood pO2 at Patient Temp 117 mmHg (75-108) Arterial Blood HCO3 22 mmol/L (21-28) Arterial Blood Base Excess -1 mmol/L (-3-3) FiO2 40 Microbiology 03/26/20 Urine Culture - Final, Complete 03/21/20 Gram Stain Evaluation - Final, Complete 03/21/20 Respiratory Culture - Final, Complete 03/20/20 Blood Culture - Final, Complete NO GROWTH AFTER 5 DAYS Medications Current Medications Norepinephrine Bitartrate 8 mg/ Dextrose 258 ml @ 18.247 mls/ hr CONT PRN IV PER PROTOCOL Last administered on 03/28/20at 19:12; Start 03/20/20 at 04:15 Dopamine HCl/ Dextrose 250 ml @ 17.681 mls/ hr CONT PRN IV SEE I/O RECORD; Start 03/20/20 at 04:30 Heparin Sodium/ Dextrose 250 ml @ 0 mls/hr CONT PRN IV PER PROTOCOL Last administered on 03/21/20at 22:15; Start 03/20/20 at 04:30; Stop 03/22/20 at 10:15; Status DC Heparin Sodium (Porcine) (Heparin Sodium) 2,400 unit PRN Q6HRS PRN IV FOR UFH LEVEL LESS THAN 0.2 Last administered on 03/21/20at 14:17; Start 03/20/20 at 04:30; Stop 03/22/20 at 10:15; Status DC Fentanyl Citrate 30 ml @ 0 mls/hr CONT PRN IV SEE PROTOCOL Last administered on 03/23/20at 06:19; Start 03/20/20 at 04:45; Stop 03/23/20 at 19:11; Status DC Lorazepam (Ativan Inj) 1 mg PRN Q1HR PRN IV SEE COMMENTS Last administered on 03/26/20at 14:30; Start 03/20/20 at 04:45; Stop 03/26/20 at 15:29; Status DC Fentanyl Citrate (Fentanyl 2ml Vial) 25 mcg PRN Q1HR PRN IV SEE COMMENTS; Start 03/20/20 at 04:45; Stop 03/26/20 at 15:29; Status DC Fentanyl Citrate (Fentanyl 2ml Vial) 50 mcg PRN Q1HR PRN IV SEE COMMENTS; Start 03/20/20 at 04:45; Stop 03/26/20 at 15:29; Status DC Chlorhexidine Gluconate (Peridex) 15 ml BID MM ; Start 03/20/20 at 09:00; Stop 03/20/20 at 07:24; Status DC Famotidine (Pepcid Vial) 20 mg BID IVP Last administered on 03/20/20at 08:07; Start 03/20/20 at 09:00; Stop 03/20/20 at 12:52; Status DC Morphine Sulfate (Morphine Sulfate) 2 mg PRN Q1HR PRN IV SEE COMMENTS.; Start 03/20/20 at 04:45; Stop 03/26/20 at 04:43; Status DC Morphine Sulfate (Morphine Sulfate) 4 mg PRN Q1HR PRN IV SEE COMMENTS.; Start 03/20/20 at 04:45; Stop 03/26/20 at 04:43; Status DC Midazolam HCl 100 ml @ 0 mls/hr CONT PRN IV SEE PROTOCOL Last administered on 03/26/20at 02:42; Start 03/20/20 at 04:45; Stop 03/26/20 at 15:29; Status DC Docusate Sodium (Colace Solution) 100 mg BID NG Last administered on 03/26/20at 08:35; Start 03/20/20 at 09:00; Stop 03/26/20 at 15:28; Status DC Sodium Chloride 1,000 ml @ 55 mls/hr [id number] IV Last administered on 04/02/20 19:36; Start 03/20/20 at 06:30; Stop 04/03/20 at 06:08; Status DC Acetaminophen (Tylenol) 650 mg PRN Q6HRS PRN PEG MILD PAIN / TEMP > 100.3'F Last administered on 03/27/20 20:51; Start 03/20/20 at 09:00 Piperacillin Sod/ Tazobactam Sod (Zosyn Per Pharmacy) 1 each PRN DAILY PRN MC SEE COMMENTS; Start 03/20/20 at 09:30 Piperacillin Sod/ Tazobactam Sod 3.375 gm/Sodium Chloride 50 ml @ 100 mls/hr Q6HRS IV Last administered on 04/03/20 05:42; Start 03/20/20 at 10:00 Magnesium Sulfate 50 ml @ 25 mls/hr 1X ONCE IV Last administered on 03/20/20at 10:21; Start 03/20/20 at 09:45; Stop 03/20/20 at 11:44; Status DC Clopidogrel Bisulfate (Plavix) 75 mg DAILYWBKFT PO Last administered on 04/03/20 08:16; Start 03/20/20 at 12:00 Atorvastatin Calcium (Lipitor) 80 mg QHS PO Last administered on 04/02/20 20:32; Start 03/20/20 at 21:00 Ondansetron HCl (Zofran) 4 mg PRN Q6HRS PRN IVP NAUSEA/VOMITING Last administered on 03/26/20 18:17; Start 03/20/20 at 10:30 Famotidine (Pepcid Vial) 20 mg BID IVP ; Start 03/20/20 at 11:00; Stop 03/20/20 at 12:35; Status DC Info (Icu Electrolyte Protocol) 1 ea DAILY MC Last administered on 04/02/20 07:54; Start 03/21/20 at 09:00 Sodium Chloride (Normal Saline Flush) 3 ml QSHIFT PRN IV AFTER MEDS AND BLOOD DRAWS; Start 03/20/20 at 10:30 Pantoprazole Sodium (PROTONIX VIAL for IV PUSH) 40 mg DAILYAC IVP Last administered on 04/03/20at 08:16; Start 03/20/20 at 12:30 Potassium Bicarbonate (Potassium Effervescent Tablet) 40 meq 1X ONCE PEG Last administered on 03/20/20at 14:47; Start 03/20/20 at 14:00; Stop 03/20/20 at 14:20; Status DC Non-Formulary Medication (ABACAVIR/ DOLUTEGRAVIR/ LAMIVUDINE (Triumeq) tablet) 1 ea DAILY PO Last administered on 04/03/20at 08:16; Start 03/20/20 at 17:00 Vancomycin HCl (Vancomycin Oral Solution) 125 mg BID PO Last administered on 04/03/20at 08:17; Start 03/20/20 at 21:30 Linezolid/Dextrose 300 ml @ 300 mls/hr Q12HR IV Last administered on 03/28/20at 08:19; Start 03/21/20 at 09:00; Stop 03/28/20 at 08:39; Status DC Furosemide (Lasix) 40 mg DAILY IVP Last administered on 04/03/20at 08:16; Start 03/22/20 at 11:00 Potassium Chloride/Water 100 ml @ 50 mls/hr 1X ONCE IV Last administered on 03/22/20at 12:58; Start 03/22/20 at 10:30; Stop 03/22/20 at 12:29; Status DC Fentanyl Citrate 55 ml @ 0 mls/hr CONT PRN IV SEE PROTOCOL Last administered on 04/03/20at 00:18; Start 03/23/20 at 19:15 Dexmedetomidine HCl 400 mcg/ Sodium Chloride 100 ml @ 0 mls/hr CONT PRN IV PER PROTOCOL Last administered on 03/24/20at 03:33; Start 03/23/20 at 21:00; Stop 03/24/20 at 08:52; Status DC Sodium Chloride 500 ml @ 500 mls/hr 1X PRN PRN IV SEE COMMENTS; Start 03/23/20 at 21:00 Atropine Sulfate (ATROPINE 0.5mg SYRINGE) 0.5 mg PRN Q5MIN PRN IV SEE COMMENTS; Start 03/23/20 at 21:00 Haloperidol Lactate (Haldol Inj) 5 mg PRN Q6HRS PRN IVP AGITATION; Start 03/23/20 at 21:00; Stop 03/24/20 at 08:52; Status DC Propofol 100 ml @ 2.748 mls/ hr CONT PRN IV PER PROTOCOL Last administered on 03/25/20at 01:17; Start 03/24/20 at 09:00; Stop 03/26/20 at 15:31; Status DC Potassium Chloride/Water 100 ml @ 100 mls/hr Q1H IV Last administered on 03/25/20at 19:02; Start 03/25/20 at 10:00; Stop 03/25/20 at 17:59; Status DC Potassium Chloride/Water 100 ml @ 100 mls/hr Q1H IV ; Start 03/25/20 at 15:00; Stop 03/25/20 at 13:59; Status DC Potassium Bicarbonate (Potassium Effervescent Tablet) 40 meq 1X ONCE PO Last administered on 03/26/20at 08:36; Start 03/26/20 at 08:15; Stop 03/26/20 at 08:22; Status DC Propofol 100 ml @ As Directed STK-MED ONCE IV ; Start 03/26/20 at 19:07; Stop 03/26/20 at 19:07; Status DC Fentanyl Citrate 30 ml @ 0 mls/hr CONT PRN IV SEE PROTOCOL; Start 03/26/20 at 19:15; Status Cancel Propofol 100 ml @ 0 mls/hr CONT PRN IV PER PROTOCOL; Start 03/26/20 at 19:15; Status Cancel Fentanyl Citrate (Fentanyl 2ml Vial) 25 mcg PRN Q1HR PRN IV SEE COMMENTS; Start 03/26/20 at 19:15 Fentanyl Citrate (Fentanyl 2ml Vial) 50 mcg PRN Q1HR PRN IV SEE COMMENTS; Start 03/26/20 at 19:15 Chlorhexidine Gluconate (Peridex) 15 ml BID MM Last administered on 03/27/20at 20:51; Start 03/26/20 at 21:00; Stop 03/28/20 at 11:44; Status DC Morphine Sulfate (Morphine Sulfate) 2 mg PRN Q1HR PRN IV SEE COMMENTS.; Start 03/26/20 at 19:15; Status Cancel Morphine Sulfate (Morphine Sulfate) 2 mg PRN Q1HR PRN IV SEE COMMENTS.; Start 03/26/20 at 19:15; Stop 03/28/20 at 22:35; Status DC Morphine Sulfate (Morphine Sulfate) 4 mg PRN Q1HR PRN IV SEE COMMENTS.; Start 03/26/20 at 19:15; Stop 03/28/20 at 22:35; Status DC Olanzapine (ZyPREXA ZYDIS) 5 mg PRN Q4HRS PRN PO AGITATION, DELIRIUM; Start 03/26/20 at 19:15 Labetalol HCl (Normodyne Iv Push) 10 mg PRN Q2HR PRN IVP HYPERTENSION; Start 03/26/20 at 19:15 Fentanyl Citrate 30 ml @ 0 mls/hr CONT PRN IV SEE PROTOCOL; Start 03/26/20 at 19:15; Status UNV Propofol 100 ml @ 0 mls/hr CONT PRN IV PER PROTOCOL Last administered on 04/03/20at 05:44; Start 03/26/20 at 19:15 Midazolam HCl 100 ml @ 0 mls/hr CONT PRN IV SEE PROTOCOL Last administered on 04/01/20at 12:21; Start 03/26/20 at 19:15 Amiodarone HCl 150 mg/Dextrose 103 ml @ 618 mls/hr 1X ONCE IV Last administered on 03/26/20at 19:44; Start 03/26/20 at 19:45; Stop 03/26/20 at 19:54; Status DC Amiodarone HCl 450 mg/Dextrose 259 ml @ 0 mls/hr 1X ONCE IV Last administered on 03/26/20at 19:45; Start 03/26/20 at 19:45; Stop 03/26/20 at 19:46; Status DC Potassium Chloride/Water 100 ml @ 100 mls/hr Q1H IV Last administered on 03/27/20at 00:44; Start 03/26/20 at 21:00; Stop 03/27/20 at 00:59; Status DC Sodium Chloride 500 ml @ 500 mls/hr 1X ONCE IV Last administered on 03/26/20at 21:09; Start 03/26/20 at 21:15; Stop 03/26/20 at 22:14; Status DC Magnesium Sulfate 100 ml @ 50 mls/hr DAILY IV Last administered on 03/26/20at 22:23; Start 03/26/20 at 22:00; Stop 03/29/20 at 03:54; Status DC Etomidate (Amidate) 20 mg STK-MED ONCE IV ; Start 03/26/20 at 23:34; Stop 03/26/20 at 23:35; Status DC Succinylcholine Chloride (Anectine) 200 mg STK-MED ONCE .ROUTE ; Start 03/26/20 at 23:34; Stop 03/26/20 at 23:35; Status DC Lidocaine HCl (Lidocaine HCl 2% Abboject) 80 mg 1X ONCE IV Last administered on 03/27/20at 01:50; Start 03/27/20 at 02:00; Stop 03/27/20 at 02:01; Status DC Potassium Chloride/Water 100 ml @ 100 mls/hr Q1H IV Last administered on 03/27/20at 07:24; Start 03/27/20 at 02:00; Stop 03/27/20 at 05:59; Status DC Dexmedetomidine HCl 400 mcg/ Sodium Chloride 100 ml @ 0 mls/hr CONT PRN IV PER PROTOCOL Last administered on 04/03/20at 01:36; Start 03/27/20 at 01:45 Sodium Chloride 500 ml @ 500 mls/hr 1X PRN PRN IV SEE COMMENTS; Start 03/27/20 at 01:45; Status Cancel Atropine Sulfate (ATROPINE 0.5mg SYRINGE) 0.5 mg PRN Q5MIN PRN IV SEE COMMENTS; Start 03/27/20 at 01:45; Stop 03/27/20 at 16:31; Status DC Amiodarone HCl 450 mg/Dextrose 259 ml @ 16.7 mls/hr CONT PRN IV SEE I/O RECORD Last administered on 03/27/20at 18:15; Start 03/27/20 at 03:00; Stop 03/27/20 at 18:16; Status DC Lidocaine HCl (Lidocaine 1% 20ml Vial) 20 ml STK-MED ONCE .ROUTE ; Start 03/27/20 at 09:23; Stop 03/27/20 at 09:23; Status DC Heparin Sodium/ Sodium Chloride 1,000 ml @ As Directed STK-MED ONCE .ROUTE ; Start 03/27/20 at 09:23; Stop 03/27/20 at 09:24; Status DC Iodixanol (Visipaque 320) 100 ml STK-MED ONCE .ROUTE ; Start 03/27/20 at 09:23; Stop 03/27/20 at 09:24; Status DC Heparin Sodium/ Sodium Chloride (HEPARIN for ARTERIAL LINE FLUSH) 1,000 unit 1X ONCE IART Last administered on 03/27/20at 10:00; Start 03/27/20 at 10:00; Stop 03/27/20 at 10:01; Status DC Heparin Sodium/ Sodium Chloride (HEPARIN for ARTERIAL LINE FLUSH) 1,000 unit 1X ONCE IART Last administered on 03/27/20at 10:00; Start 03/27/20 at 10:00; Stop 03/27/20 at 10:01; Status DC Iodixanol (Visipaque 320) 100 ml 1X ONCE IART Last administered on 03/27/20at 11:05; Start 03/27/20 at 10:00; Stop 03/27/20 at 10:01; Status DC Lidocaine HCl (Lidocaine 1% 20ml Vial) 20 ml 1X ONCE INJ Last administered on 03/27/20at 10:41; Start 03/27/20 at 10:00; Stop 03/27/20 at 10:01; Status DC Info (CONTRAST GIVEN -- Rx MONITORING) 1 each PRN DAILY PRN MC SEE COMMENTS; Start 03/27/20 at 10:00; Stop 03/29/20 at 09:59; Status DC Milrinone Lactate/ Dextrose 100 ml @ 10.103 mls/ hr CONT PRN IV SEE I/O RECORD Last administered on 03/30/20at 09:19; Start 03/27/20 at 11:30; Stop 03/30/20 at 15:28; Status DC Epinephrine HCl (EPINEPHrine SYRINGE) 1 mg STK-MED ONCE .ROUTE ; Start 03/26/20 at 21:00; Stop 03/27/20 at 19:23; Status DC Sodium Bicarbonate (Sodium Bicarb Adult 8.4% Syr) 50 meq STK-MED ONCE .ROUTE ; Start 03/26/20 at 21:00; Stop 03/27/20 at 19:23; Status DC Potassium Chloride/Water 100 ml @ 100 mls/hr Q1H IV Last administered on 03/28/20at 08:18; Start 03/28/20 at 06:00; Stop 03/28/20 at 07:59; Status DC Amiodarone HCl (Cordarone) 200 mg BID PO Last administered on 03/29/20at 07:46; Start 03/28/20 at 21:00; Stop 03/29/20 at 10:29; Status DC Lidocaine HCl (Lidocaine HCl 2% Abboject) 80 mg 1X ONCE IV Last administered on 03/28/20at 19:55; Start 03/28/20 at 20:15; Stop 03/28/20 at 20:16; Status DC Amiodarone HCl (Cordarone) 200 mg 1X ONCE PO Last administered on 03/29/20at 13:55; Start 03/29/20 at 13:45; Stop 03/29/20 at 13:50; Status DC Amiodarone HCl (Cordarone) 400 mg DAILY PO Last administered on 04/03/20at 08:15; Start 03/30/20 at 09:00 Magnesium Sulfate 50 ml @ 25 mls/hr 1X ONCE IV Last administered on 03/30/20at 09:55; Start 03/30/20 at 09:45; Stop 03/30/20 at 11:44; Status DC Potassium Bicarbonate (Potassium Effervescent Tablet) 40 meq 1X ONCE PEG Last administered on 03/30/20at 09:54; Start 03/30/20 at 09:45; Stop 03/30/20 at 09:53; Status DC Potassium Bicarbonate (Potassium Effervescent Tablet) 40 meq 1X ONCE PO Last administered on 03/30/20at 13:40; Start 03/30/20 at 14:15; Stop 03/30/20 at 14:16; Status DC Epinephrine HCl (EPINEPHrine SYRINGE) 1 mg STK-MED ONCE .ROUTE ; Start 03/29/20 at 12:00; Stop 03/30/20 at 13:02; Status DC Lidocaine HCl (Lidocaine HCl 2% Abboject) 100 mg STK-MED ONCE .ROUTE ; Start 03/29/20 at 12:00; Stop 03/30/20 at 13:02; Status DC Milrinone Lactate/ Dextrose 100 ml @ 6.735 mls/ hr CONT PRN IV SEE I/O RECORD Last administered on 04/01/20at 20:33; Start 03/30/20 at 15:30 Magnesium Sulfate 50 ml @ 25 mls/hr 1X ONCE IV Last administered on 03/31/20at 08:38; Start 03/31/20 at 08:30; Stop 03/31/20 at 10:29; Status DC Potassium Bicarbonate (Potassium Effervescent Tablet) 40 meq 1X ONCE PEG Last administered on 03/31/20at 08:37; Start 03/31/20 at 08:00; Stop 03/31/20 at 08:01; Status DC Potassium Bicarbonate (Potassium Effervescent Tablet) 40 meq 1X ONCE PEG Last administered on 03/31/20at 12:31; Start 03/31/20 at 12:00; Stop 03/31/20 at 12:01; Status DC Potassium Bicarbonate (Potassium Effervescent Tablet) 80 meq 1X ONCE PO Last administered on 04/01/20at 10:05; Start 04/01/20 at 09:45; Stop 04/01/20 at 09:46; Status DC Potassium Bicarbonate (Potassium Effervescent Tablet) 20 meq 1X ONCE PEG Last administered on 04/01/20at 16:25; Start 04/01/20 at 16:15; Stop 04/01/20 at 1 6:16; Status DC Potassium Chloride/Water 100 ml @ 100 mls/hr Q1H IV Last administered on 04/02/20at 09:24; Start 04/02/20 at 07:30; Stop 04/02/20 at 09:29; Status DC Magnesium Sulfate 50 ml @ 25 mls/hr 1X ONCE IV Last administered on 04/02/20at 07:52; Start 04/02/20 at 07:30; Stop 04/02/20 at 09:29; Status DC Potassium Bicarbonate (Potassium Effervescent Tablet) 40 meq 1X ONCE PEG Last administered on 04/02/20at 09:34; Start 04/02/20 at 09:30; Stop 04/02/20 at 09:31; Status DC Enoxaparin Sodium (Lovenox 40mg Syringe) 40 mg Q24H SQ Last administered on 04/02/20at 11:46; Start 04/02/20 at 12:00 Magnesium Sulfate 50 ml @ 25 mls/hr 1X ONCE IV Last administered on 04/02/20at 11:47; Start 04/02/20 at 12:00; Stop 04/02/20 at 13:59; Status DC Nicardipine HCl 50 mg/Sodium Chloride 250 ml @ 25 mls/hr CONT PRN IV SEE I/O RECORD; Start 04/02/20 at 12:00 Sodium Chloride 1,000 ml @ 55 mls/hr [id number] IV ; Start 04/03/20 at 12:00 Active Scripts Active Furosemide 40 Mg Tablet 40 Mg PO DAILY 90 Days Tramadol Hcl 50 Mg Tablet 50 Mg PO PRN Q6HRS PRN 6 Days Metoprolol Succinate ( Xl ) (Metoprolol Succinate) 25 Mg Tab.er.24h 12.5 Mg PO DAILY 90 Days Clopidogrel (Clopidogrel Bisulfate) 75 Mg Tablet 75 Mg PO DAILYWBKFT 90 Days Lisinopril 10 Mg Tablet 1 Tab PO DAILY 90 Days Atorvastatin Calcium 80 Mg Tablet 80 Mg PO QHS 90 Days Reported Klor-Con M20 (Potassium Chloride) 20 Meq Tab.er.prt 20 Meq PO TID Pantoprazole Sodium (Pantoprazole Sodium) 40 Mg Tablet.dr 40 Mg PO BID Duoneb 0.5-3(2.5) Mg/3 Ml (Albuterol/Ipratropium) 3 Ml Ampul.neb 3 Ml NEB PRN Q6HRS PRN Acetaminophen 325 Mg Tablet 1 Tab PO PRN Q6HRS PRN 24 Days Triumeq Tablet (Abacavir/Dolutegravir/Lamivudi) 1 Each Tablet 1 Tab PO DAILY 30 Days Gabapentin (Gabapentin) 300 Mg Capsule 100 Mg PO TID Children's Aspirin (Aspirin) 81 Mg Tab.chew 1 Tab PO DAILY 30 Days Vitals/I & O Vital Sign - Last 24 Hours 04/02/20 04/02/20 04/02/20 04/02/20 10:00 10:15 10:30 10:45 Pulse 98 100 108 74 Resp 20 20 20 20 B/P (MAP) 170/102 (124) 184/109 (134) 203/105 (137) 118/76 (90) Pulse Ox 100 100 100 100 O2 Delivery Ventilator Ventilator Ventilator Ventilator 04/02/20 04/02/20 04/02/20 04/02/20 11:00 11:15 12:00 12:00 Temp 98.9 98.9 Pulse 74 70 Resp 20 20 B/P (MAP) 111/76 (88) 106/73 (84) Pulse Ox 100 99 100 O2 Delivery Ventilator Ventilator Ventilator Mechanical Ventilator 04/02/20 04/02/20 04/02/20 04/02/20 13:00 14:00 15:00 15:19 Pulse 66 72 69 Resp 20 20 20 B/P (MAP) 85/71 (76) 124/68 (86) 83/59 (67) Pulse Ox 100 100 99 100 O2 Delivery Ventilator Ventilator Ventilator Ventilator 04/02/20 04/02/20 04/02/20 04/02/20 15:54 16:00 17:00 18:00 Temp 99.9 99.9 Pulse 71 70 77 Resp 20 20 20 B/P (MAP) 96/62 (73) 103/75 (84) 144/77 (99) Pulse Ox 99 100 100 O2 Delivery Mechanical Ventilator Ventilator Ventilator Ventilator 04/02/20 04/02/20 04/02/20 04/02/20 19:00 20:00 20:00 21:00 Temp 98.6 98.6 Pulse 70 82 78 Resp 20 20 20 B/P (MAP) 184/84 (117) 132/81 (98) 131/81 (98) Pulse Ox 100 100 100 O2 Delivery Ventilator Ventilator Mechanical Ventilator Ventilator 04/02/20 04/02/20 04/02/20 04/02/20 21:13 22:00 23:00 23:43 Pulse 75 93 Resp 20 20 B/P (MAP) 135/79 (97) 118/83 (95) Pulse Ox 100 100 100 O2 Delivery Ventilator Ventilator Ventilator Mechanical Ventilator 04/03/20 04/03/20 04/03/20 04/03/20 00:00 00:39 01:00 02:00 Temp 99.6 99.6 Pulse 90 89 79 Resp 20 20 20 B/P (MAP) 114/66 (82) 117/72 (87) 120/63 (82) Pulse Ox 100 100 100 100 O2 Delivery Ventilator Ventilator Ventilator Ventilator 04/03/20 04/03/20 04/03/20 04/03/20 03:00 03:51 04:00 05:00 Temp 99.4 99.4 Pulse 88 77 79 Resp 20 20 20 B/P (MAP) 101/67 (78) 132/78 (96) 141/84 (103) Pulse Ox 100 100 100 O2 Delivery Ventilator Mechanical Ventilator Ventilator Ventilator 04/03/20 04/03/20 04/03/20 04/03/20 05:17 06:00 07:00 07:28 Temp 98.6 98.6 Pulse 74 78 Resp 20 20 B/P (MAP) 151/85 (107) 149/87 (107) Pulse Ox 100 100 100 100 O2 Delivery Ventilator Ventilator Ventilator Ventilator 04/03/20 04/03/20 04/03/20 07:41 08:00 08:15 Pulse 77 77 Resp 20 B/P (MAP) 153/91 (111) 153/91 Pulse Ox 100 O2 Delivery Mechanical Ventilator Ventilator Intake and Output 04/02/20 04/02/20 04/03/20 15:00 23:00 07:00 Intake Total 613.57 ml 1336.62 ml 1796 ml Output Total 2350 ml 690 ml 715 ml Balance -1736.43 ml 646.62 ml 1081 ml Justicifation of Admission Dx: Justifications for Admission: Justification of Admission Dx: Yes ERIN MAYEN MD Apr 03, 2020 09:05
--- NOTE | 2020-04-03 10:16 | RAD ---
MR#: [id number] Date of Study: 04/01/2020 Ordering Physician: SHYAM AJ, Referring Physician: SHYAM AJ, Tech: Dorothea Agee RDMS, RVT, RTR APPROVED REPORT Right Upper Extremity Venous Study for DVT. Patient Location: IN-PATIENT Indications Upper Extremity Edema: Right Vein Imaging (Right) IJV (R): Compressible SCV (R): Compressible Axillary (R): Compressible Brachial (R): Compressible Basilic (R): Partially Compressible Cephalic (R): Partially Compressible Radial (R): Compressible Ulnar (R): Compressible Findings Grayscale images demonstrate superficial thrombosis of the basilic and cephalic veins on the right si de but the deep veins are compressible without any evidence of obstruction to flow. The right internal jugular, subclavian, brachial and radial and ulnar veins are negative for DVT. Critical Notification Critical Value: No <Conclusion> 1. No evidence of DVT on the right upper extremity but the superficial cephalic and basilic veins ar e notable for partially occlusive thrombus Signed by : Shyam Aj, Electronically Approved : 04/02/2020 08:09:39
--- NOTE | 2020-04-03 10:31 | PDOC ---
GREGORY REYNA DRAFTER TOOL DESIGN 04/03/20 1031: CARDIO Progress Notes Date and Time Date of Service 04/03/20 Time of Evaluation 1030 Subjective Subjective: Other (intubated, awake, follows commands ) Vitals Vitals Vital Signs Date Time Temp Pulse Resp B/P (MAP) Pulse Ox O2 Delivery O2 Flow Rate FiO2 04/03/20 10:00 72 20 135/79 (97) 100 Ventilator 04/03/20 07:00 98.6 98.6 Weight Weight [ ] Input and Output Intake and Output Intake and Output 04/03/20 07:00 Intake Total 3746.19 ml Output Total 3755 ml Balance -8.81 ml IV Total 2550.19 ml Tube Feeding 896 ml Other 300 ml Output Urine Total 3755 ml # Bowel Movements 1 Laboratory Labs Laboratory Tests Test 04/02/20 13:56 04/03/20 04:58 04/03/20 07:30 Potassium Level 4.4 mmol/L (3.5-5.1) 3.8 mmol/L (3.5-5.1) Sodium Level 145 mmol/L (136-145) Chloride Level 109 mmol/L (98-107) Carbon Dioxide Level 24 mmol/L (21-32) Anion Gap 12 (6-14) Blood Urea Nitrogen 5 mg/dL (8-26) Creatinine 1.0 mg/dL (0.7-1.3) Estimated GFR (Cockcroft-Gault) 94.9 Glucose Level 114 mg/dL (70-99) Calcium Level 8.6 mg/dL (8.5-10.1) Magnesium Level 2.4 mg/dL (1.8-2.4) O2 Saturation 98 % (92-99) Arterial Blood pH 7.46 (7.35-7.45) Arterial Blood pCO2 at Patient Temp 32 mmHg (35-46) Arterial Blood pO2 at Patient Temp 117 mmHg (75-108) Arterial Blood HCO3 22 mmol/L (21-28) Arterial Blood Base Excess -1 mmol/L (-3-3) FiO2 40 Microbiology Micro Microbiology 03/26/20 Urine Culture - Final, Complete 03/21/20 Gram Stain Evaluation - Final, Complete 03/21/20 Respiratory Culture - Final, Complete 03/20/20 Blood Culture - Final, Complete NO GROWTH AFTER 5 DAYS Physical Exam HEENT: Neck Supple W Full Motion Chest: Symmetric LUNGS: Other (mechanical vent ) Heart: RRR (SR with frequent PVCs) Abdomen: Other (soft ) Extremities: No Edema Neurology: other (awake, follows commands ) Assessment Assessment 1. OOH, witness cardiac arrest; recurrent Tors[place], VT arrest 07/21/20. On Amiodarone gtt. LHC with patent LCx stent. No lesions needing intervention. 3. Acute respiratory failure secondary to above; extubated, but reintubated following cardiac arrest due to [place]ors[place], VT 07/21/20. 4. H/o Vfib OOH arrest; probable ischemic in nature, antiarrhythmics discontinued in past due to QTc prolongation. 5. Acute on chronic systolic CHF 6. ICM; LVEF 20-25%. on milrinone 7. CAD s/p PCI/BMS to the LCx 12/11/19. 8. SSS s/p leadless PPM implantation ([employer]onic Micra). Device check with normal function 04/02/20. 9. Leukocytosis, fevers. ? sepsis. off pressor support 10. Hypertension; labile this am 11. H/o DAIJA requiringHD; renal function improvedand HD catheter removed 12. 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 HIV 14. Substance abuse; UDS + cocaine at [facility] 15. Noncompliance 16. Tobaccoism 17. Hypokalemia, hypomagnesemia Recommendations Anticipate extubation today Cardene as needed for BP control Continue Amiodarone for now. Monitor QTc. Repeat EKG Keep K > 4.0 and Mg > 2.0 Ongoing diuresis Secondary prevention measures as able. Plavix, statin therapy. Will discuss proceeding with AICD when extubated. Justicifation of Admission Dx: Justifications for Admission: Justification of Admission Dx: Yes SHYAM AJ MD 04/03/20 1644: CARDIO Progress Notes Plan Plan Patient seen and examined. Agree with above nurse practitioner note. We spoke with the patient's family, partner and the patient himself. Plan will be to continue medical optimization and a LifeVest upon discharge and if he has adequate follow-up and refrains from drug abuse then we will plan for ICD placement on an outpatient basis. Patient and family members were in agreement with the current plan. Thank you for this consultation. We will follow along closely. GREGORY REYNA APRN Apr 03, 2020 10:31 SHYAM AJ MD Apr 03, 2020 16:44
--- NOTE | 2020-04-03 11:03 | PDOC ---
[facility] PROGRESS NOTE Date of Service DOS: DATE: 04/03/20 TIME: 11:01 Chief Complaint Chief Complaint 1. out of hospital arrest , witness cardiac arrest; Defibrillation // AMI ruled out. 2. H/o Vfib probable ischemic in nature, antiarrhythmics discontinued in past due to QTc prolongation of 600. 3. Acute hypoxic respiratory failure requiring vent support 4. CAD s/p PCI/BMS to the LCx 12/11/19. Treated with ASA,Brilinta initially, which was held due to recurrent GIB requiring transfusions.Due to recent PCI/BMS, Plavix was resumed while at [facility]. ASA was d/c'd 5. Chronic systolic CHF 6. ischemic cardiomyopathy LVEF 20-25%. 7. SSS s/p leadless PPM 8. Hypertension; // requiring pressor support 9. Hypokalemia, hypomagnesemia 10. H/o DAIJA requiringHD; renal function improvedand HD catheter removed 11. 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 HIV 13. Substance abuse; UDS + cocaine , ALCOHOL, TOBACCO 14. Leukocytosis, fevers. ? sepsis Covid negative. 15. H/o Vfib OOH arrest; probable ischemic in nature, antiarrhythmics discontinued in past due to QTc prolongation of 600. EKG at [facility] with QTc 507, 528. 16. Human immunodeficiency virus, CD4 was 403 on 01/16 viral load less than 20 on 01/23on [facility]. 17. History of ventricular tachycardia, Coronary artery disease, status post PCI. 18. Status post pacemaker for bradycardia 12/27 at [place]. 19. hypernatremia, volume excess History of Present Illness History of Present Illness 04/03/2020 Patient seen and examined in the ICU He remains intubated AC/20/500/40 percent with 5 of PEEP He has mitts on for his safety Has [place] to bedside drainage Has SCDs on Sedated with Dex fentanyl and propofol Has IV Zosyn hanging Chart reviewed Discussed with RN He remains critically ill 04/02/2020 Patient seen and examined in ICU He remains intubated Assist-control// 500/40% FiO2 with 5 of PEEP Discussed with RN Chart reviewed Patient on milrinone drip He is also on propofol drip for sedation He remains critically ill Identification/Chief Complaint Chief Complaint admitted to icu , out of hospial arrest CAD s/p PCI/stent, cardiomyopathy, and prior cardiac arrest, presented secondary to cardiac arrest at home. Was at home with partner, Stevenson, watching television. Patient suddenly started breathing more deeply and began gasping for air. Eyes were wide and glassy. Was unresponsive. Partner was unable to feel pulse so he put him on the floor, called EMS and began chest compressions. Partner reports him drinking 3 malt beverages that evening while watching TV. No known sick contacts. EMS arrived within minutes. ROSC returned following one defibrillation. Although partner declined drug use, Narcan was administered en route due to pinpoint pupils. Limited effect from the Narcan. UDS was + for cocaine. IS COVID 19 PUI hx cardiac arrest on December 19, 2019. Patient was apparently found arrest in his car EMS noted in v-fib. ROSC was achieved following 1 defibrillation and 1 round of epi.//activated as STEMI with LBBB. Emergent cath notable for blockage of left circumflex. //PCI/BMS to the Left circumflex. went into Vfib in cardiac cath technologist and was initiated on Amiodarone therapy. LVEF noted at 20-25%. Developed DAIJA due to cardiogenic shock. had multiple episodes of bradycardia/significant pauses mostly related to suctioning. then leadlessPPM placement.Treated for Klebsiella PNA as well. course further complicated by GIB requiring tranfusion. 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 Remains on vent, FiO2 40%, PEEP 5. Swelling noted to his right arm, will obtain ultrasound to evaluate. Discussed with RN, will attempt trial extubation tomorrow. 03/31 Patient seen in ICU. Afebrile. On vent FiO2 40%, PEEP 5. Hemoglobin 7.2 and holding steady. We will continue to monitor and transfuse <7. Antibiotics per ID. 03/30 Afebrile. On vent, FiO2 40%, PEEP 5. Patient needs AICD, but some significant complaints issues. I believe cardiology is to consult neurology for further i nput on this issue. Charts and labs reviewed. 03/29 Patient remains in ICU on vent. FiO2 40%, PEEP 5. Discussed with RN, episode of V-tach overnight. Cardiology to consider AICD. Will continue with antibiotics and diuresis. 03/28 Afebrile. No acute events overnight. On vent, FiO2 40%, PEEP 5. Potassium low today, will replace. Continue supportive care and antibiotics. Discussed with RN 03/27 Patient seen in ICU. Breathing on mechanical ventilator, FiO2 60%, PEEP 5. Patient failed extubation yesterday. Continue Zosyn, Zyvox, p.o. vancomycin. 03/26 Patient seen and evaluated in ICU. On vent FiO2 35%, PEEP 5. Afebrile. Continue Zosyn, Zyvox, and p.o. vancomycin. Chart and labs reviewed, discussed with RN. Vitals/I&O Vitals/I&O: Vital Signs Date Time Temp Pulse Resp B/P (MAP) Pulse Ox O2 Delivery O2 Flow Rate FiO2 04/03/20 10:00 72 20 135/79 (97) 100 Ventilator 04/03/20 07:00 98.6 98.6 I & O 04/02/20 04/02/20 04/03/20 15:00 23:00 07:00 Intake Total 613.57 ml 1336.62 ml 1796 ml Output Total 2350 ml 690 ml 715 ml Balance -1736.43 ml 646.62 ml 1081 ml Physical Exam Physical Exam: GENERAL: Intubated, sedated. HEENT: Conjunctival suffusion. Pupils equal, reactive. ETT OGT present. NECK: Supple. LUNGS: Clear anteriorly. HEART: S1, S2, tachycardia. ABDOMEN: Obese, mildly distended. Bowel sounds present. EXTREMITIES: No edema or cyanosis. DERMATOLOGIC: Warm and dry. No generalized rash. NEUROLOGIC: Unable to assess. Labs Labs: Laboratory Tests Test 04/02/20 13:56 04/03/20 04:58 04/03/20 07:30 Potassium Level 4.4 mmol/L (3.5-5.1) 3.8 mmol/L (3.5-5.1) Sodium Level 145 mmol/L (136-145) Chloride Level 109 mmol/L (98-107) Carbon Dioxide Level 24 mmol/L (21-32) Anion Gap 12 (6-14) Blood Urea Nitrogen 5 mg/dL (8-26) Creatinine 1.0 mg/dL (0.7-1.3) Estimated GFR (Cockcroft-Gault) 94.9 Glucose Level 114 mg/dL (70-99) Calcium Level 8.6 mg/dL (8.5-10.1) Magnesium Level 2.4 mg/dL (1.8-2.4) O2 Saturation 98 % (92-99) Arterial Blood pH 7.46 (7.35-7.45) Arterial Blood pCO2 at Patient Temp 32 mmHg (35-46) Arterial Blood pO2 at Patient Temp 117 mmHg (75-108) Arterial Blood HCO3 22 mmol/L (21-28) Arterial Blood Base Excess -1 mmol/L (-3-3) FiO2 40 Assessment and Plan Assessmemt and Plan Assessmemt and Plan 1. out of hospital arrest , witness cardiac arrest; Defibrillation // AMI ruled out. 2. H/o Vfib probable ischemic in nature, antiarrhythmics discontinued in past due to QTc prolongation of 600. 3. Acute hypoxic respiratory failure requiring vent support 4. CAD s/p PCI/BMS to the LCx 12/11/19. Treated with ASA,Brilinta initially, which was held due to recurrent GIB requiring transfusions.Due to recent PCI/BMS, Plavix was resumed while at [facility]. ASA was d/c'd 5. Chronic systolic CHF 6. ischemic cardiomyopathy LVEF 20-25%. 7. SSS s/p leadless PPM 8. Hypertension; // requiring pressor support 9. Hypokalemia, hypomagnesemia 10. H/o DAIJA requiringHD; renal function improvedand HD catheter removed 11. 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 HIV 13. Substance abuse; UDS + cocaine , ALCOHOL, TOBACCO 14. Leukocytosis, fevers. ? sepsis Covid negative. 15. H/o Vfib OOH arrest; probable ischemic in nature, antiarrhythmics discontinued in past due to QTc prolongation of 600. EKG at [facility] with QTc 507, 528. 16. Human immunodeficiency virus, CD4 was 403 on 01/16 viral load less than 20 on 01/23on [facility]. 17. History of ventricular tachycardia, Coronary artery disease, status post PCI. 18. Status post pacemaker for bradycardia 12/27 at [place]. 19. hypernatremia, volume excess Plan ICU monitoring Vent weaning Cardiology is following Pulmonary is following Trend labs and replace lites as needed Secondary prevention measures as able Resume Plavix. No ASA due to recent GIB Monitor LFTs Pressor support; wean as able Hold lisinopril, Toprol with hypotension Echo Heparin drip Nutritional support Continue IV antibiotics (Zosyn) Continue p.o. vancomycin for prophylaxis with history of recurrent C. difficile Continue Triumeq He remains critically ill Appreciate subspecialist input CC time 33 min Comment Review of Relevant I have reviewed the following items joel (where applicable) has been applied. Medications: Current Medications Medications (Trade) Dose Ordered Sig/Guy Route PRN Reason Start Time Stop Time Status Last Admin Dose Admin Enoxaparin Sodium (Lovenox 40mg Syringe) 40 mg Q24H SQ 04/02/20 12:00 04/02/20 11:46 Magnesium Sulfate 50 ml @ 25 mls/hr 1X ONCE IV 04/02/20 12:00 04/02/20 13:59 DC 04/02/20 11:47 Justifications for Admission Other Justification CARDIAC ARREST SERA GREGORIO III DO Apr 03, 2020 11:03
--- NOTE | 2020-04-03 11:05 | PDOC ---
Date of Service: DATE: 04/03/20 TIME: 11:01 Objective: Objective: D/w nurse - stooled yesterday, tube feeds w/ slow rate, ~180cc residual. Vital Signs: Vital Signs Date Time Temp Pulse Resp B/P (MAP) Pulse Ox O2 Delivery O2 Flow Rate FiO2 04/03/20 10:00 72 20 135/79 (97) 100 Ventilator 04/03/20 07:00 98.6 98.6 Labs: Laboratory Tests Test 04/02/20 13:56 04/03/20 04:58 04/03/20 07:30 Potassium Level 4.4 mmol/L 3.8 mmol/L Sodium Level 145 mmol/L Chloride Level 109 mmol/L Carbon Dioxide Level 24 mmol/L Anion Gap 12 Blood Urea Nitrogen 5 mg/dL Creatinine 1.0 mg/dL Estimated GFR (Cockcroft-Gault) 94.9 Glucose Level 114 mg/dL Calcium Level 8.6 mg/dL Magnesium Level 2.4 mg/dL O2 Saturation 98 % Arterial Blood pH 7.46 Arterial Blood pCO2 at Patient Temp 32 mmHg Arterial Blood pO2 at Patient Temp 117 mmHg Arterial Blood HCO3 22 mmol/L Arterial Blood Base Excess -1 mmol/L FiO2 40 Imaging: Head CT 04/02 Impression: No acute hemorrhage, loss of crump-white differentiation, or gyral swelling. CXR 04/02 IMPRESSION: 1. Stable life support devices. 2. Progression of left basilar opacities. 3. Increased small left pleural effusion. UE US 04/01 <Conclusion> 1. No evidence of DVT on the right upper extremity but the superficial cephalic and basilic veins are notable for partially occlusive thrombus PE: GEN: intubated, OG tube feeds LUNGS: vent, clear HEART: RRR ABD: round, soft, some distended, quiet NEURO/PSYCH: sedated A/P: S/p arrests, CAD, CHF, resp failure, anoxic encephalopathy Anemia (stable), h/o GI bleeding (none here) +cocaine, non-compliance COVID negative -- Monitor tube feeds/residual, continue PPI. Justicifation of Admission Dx: Justifications for Admission: Justification of Admission Dx: Yes YNES CLEARY Apr 03, 2020 11:05
[2020-04-03] MEDS: ONDANSETRON PF 4 MG/2 ML VIAL. IVP PRN ×3 (11:19→22:57)
[2020-04-03 11:55] LABS: BASE EXCESS ABG -3 mmol/L (-3-3); HCO3 ABG 22 mmol/L (21-28); PCO2 ABG 36 mmHg (35-46); PO2 ABG 75 mmHg (75-108); SAT O2 ABG 94 % (92-99)
[2020-04-03] MEDS: ENOXAPARIN 40 MG/0.4 ML SYRINGE. SQ SCH (12:16)
--- NOTE | 2020-04-03 12:20 | PDOC ---
PULMONARY PROGRESS NOTES DATE: 04/03/20 TIME: 12:17 Subjective Pt. is on Fi02 40% and PEEP of 5 extubated 03/26, re-intubated for 03/26--V-Tac Arrest S/P cardiac cath 03/27/20-- clean Vitals Vital Signs Date Time Temp Pulse Resp B/P (MAP) Pulse Ox O2 Delivery O2 Flow Rate FiO2 04/03/20 11:45 79 141/78 (99) 04/03/20 11:00 29 100 Ventilator 04/03/20 07:00 98.6 98.6 Comments Intubated/sedated Cardiovascular: S1, S2 Extremities: No Edema Skin: Warm, Dry Labs Laboratory Tests Test 04/02/20 05:10 04/02/20 07:40 04/02/20 13:56 04/03/20 04:58 White Blood Count 9.1 x10^3/uL (4.0-11.0) Red Blood Count 2.95 x10^6/uL (4.30-5.70) Hemoglobin 7.3 g/dL (13.0-17.5) Hematocrit 23.0 % (39.0-53.0) Mean Corpuscular Volume 78 fL (79-100) Mean Corpuscular Hemoglobin 25 pg (25-35) Mean Corpuscular Hemoglobin Concent 32 g/dL (31-37) Red Cell Distribution Width 18.3 % (11.5-14.5) Platelet Count 413 x10^3/uL (140-400) Sodium Level 144 mmol/L (136-145) 145 mmol/L (136-145) Potassium Level 3.3 mmol/L (3.5-5.1) 4.4 mmol/L (3.5-5.1) 3.8 mmol/L (3.5-5.1) Chloride Level 108 mmol/L (98-107) 109 mmol/L (98-107) Carbon Dioxide Level 24 mmol/L (21-32) 24 mmol/L (21-32) Anion Gap 12 (6-14) 12 (6-14) Blood Urea Nitrogen 4 mg/dL (8-26) 5 mg/dL (8-26) Creatinine 1.0 mg/dL (0.7-1.3) 1.0 mg/dL (0.7-1.3) Estimated GFR (Cockcroft-Gault) 94.9 94.9 BUN/Creatinine Ratio 4 (6-20) Glucose Level 86 mg/dL (70-99) 114 mg/dL (70-99) Calcium Level 8.5 mg/dL (8.5-10.1) 8.6 mg/dL (8.5-10.1) Phosphorus Level 4.1 mg/dL (2.6-4.7) Magnesium Level 1.8 mg/dL (1.8-2.4) 2.4 mg/dL (1.8-2.4) Total Bilirubin 0.3 mg/dL (0.2-1.0) Aspartate Amino Transf (AST/SGOT) 14 U/L (15-37) Alanine Aminotransferase (ALT/SGPT) 10 U/L (16-63) Alkaline Phosphatase 64 U/L (46-116) Total Protein 6.9 g/dL (6.4-8.2) Albumin 2.1 g/dL (3.4-5.0) Albumin/Globulin Ratio 0.4 (1.0-1.7) O2 Saturation 97 % (92-99) Arterial Blood pH 7.41 (7.35-7.45) Arterial Blood pCO2 at Patient Temp 37 mmHg (35-46) Arterial Blood pO2 at Patient Temp 96 mmHg (75-108) Arterial Blood HCO3 23 mmol/L (21-28) Arterial Blood Base Excess -1 mmol/L (-3-3) FiO2 40 Test 04/03/20 07:30 04/03/20 11:40 O2 Saturation 98 % (92-99) 94 % (92-99) Arterial Blood pH 7.46 (7.35-7.45) 7.40 (7.35-7.45) Arterial Blood pCO2 at Patient Temp 32 mmHg (35-46) 36 mmHg (35-46) Arterial Blood pO2 at Patient Temp 117 mmHg (75-108) 75 mmHg (75-108) Arterial Blood HCO3 22 mmol/L (21-28) 22 mmol/L (21-28) Arterial Blood Base Excess -1 mmol/L (-3-3) -3 mmol/L (-3-3) FiO2 40 40% 02/24 Laboratory Tests Test 04/02/20 13:56 04/03/20 04:58 04/03/20 07:30 04/03/20 11:40 Potassium Level 4.4 mmol/L (3.5-5.1) 3.8 mmol/L (3.5-5.1) Sodium Level 145 mmol/L (136-145) Chloride Level 109 mmol/L (98-107) Carbon Dioxide Level 24 mmol/L (21-32) Anion Gap 12 (6-14) Blood Urea Nitrogen 5 mg/dL (8-26) Creatinine 1.0 mg/dL (0.7-1.3) Estimated GFR (Cockcroft-Gault) 94.9 Glucose Level 114 mg/dL (70-99) Calcium Level 8.6 mg/dL (8.5-10.1) Magnesium Level 2.4 mg/dL (1.8-2.4) O2 Saturation 98 % (92-99) 94 % (92-99) Arterial Blood pH 7.46 (7.35-7.45) 7.40 (7.35-7.45) Arterial Blood pCO2 at Patient Temp 32 mmHg (35-46) 36 mmHg (35-46) Arterial Blood pO2 at Patient Temp 117 mmHg (75-108) 75 mmHg (75-108) Arterial Blood HCO3 22 mmol/L (21-28) 22 mmol/L (21-28) Arterial Blood Base Excess -1 mmol/L (-3-3) -3 mmol/L (-3-3) FiO2 40 40% 02/24 Medications Active Scripts Medications Dose Route/Sig Max Daily Dose Days Date Category Furosemide 40 Mg Tablet 40 Mg PO DAILY 02/02/20 Rx Tramadol Hcl 50 Mg Tablet 50 Mg PO PRN Q6HRS PRN 6 02/02/20 Rx Metoprolol Succinate ( Xl ) (Metoprolol Succinate) 25 Mg Tab.er.24h 12.5 Mg PO DAILY 02/02/20 Rx Clopidogrel (Clopidogrel Bisulfate) 75 Mg Tablet 75 Mg PO [id number] 02/02/20 Rx Lisinopril 10 Mg Tablet 1 Tab PO DAILY 02/02/20 Rx Atorvastatin Calcium 80 Mg Tablet 80 Mg PO QHS 02/02/20 Rx Klor-Con M20 (Potassium Chloride) 20 Meq Tab.er.prt 20 Meq PO TID 01/31/20 Reported Pantoprazole Sodium (Pantoprazole Sodium) 40 Mg Tablet.dr 40 Mg PO BID 01/31/20 Reported Duoneb 0.5-3(2.5) Mg/3 Ml (Albuterol/Ipratropium) 3 Ml Ampul.neb 3 Ml NEB PRN Q6HRS PRN 01/31/20 Reported Acetaminophen 325 Mg Tablet 1 Tab PO PRN Q6HRS PRN 24 01/31/20 Reported Triumeq Tablet (Abacavir/Dolutegravir/Lamivudi) 1 Each Tablet 1 Tab PO DAILY 30 01/31/20 Reported Gabapentin (Gabapentin) 300 Mg Capsule 100 Mg PO TID 01/31/20 Reported Children's Aspirin (Aspirin) 81 Mg Tab.chew 1 Tab PO DAILY 30 01/31/20 Reported Comments CXR IMPRESSION: 1. Stable life support devices. 2. Progression of left basilar opacities. 3. Increased small left pleural effusion. Impression . IMPRESSION: 1. Acute hypoxemic respiratory failure secondary to [id number] cardiopulmonary arrest. extubated 03/26, re-intubated for V-Tac Arrest 2. History of ventricular fibrillation with previous [id number] cardiac arrest. 3. History of coronary artery disease, status post percutaneous coronary intervention to the circumflex. 4. History of gastrointestinal bleed. 5. Chronic systolic heart failure. 6. Ischemic cardiomyopathy, ejection fraction 15%. 7. Status post pacemaker implantation. 8. Hypertension. 9. Hypokalemia. 10. Previous kidney injury requiring hemodialysis. 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 12. Human immunodeficiency virus. 13. Polysubstance use. Plan . Continue current vent support, 40% and PEEP of 5 Doing better with CPAP trial will proceed with extubation. Lasix prn w/ KCL replacement Follow Cardiology recs ---S/P cath 03/27/20 was clear--Life vest-- per cardiology -- remains on primacor gtt Replace electrolytes, prior to extubation Continue empiric antibiotics per infectious disease Follow GI recs PT/OT//ST DVT/GI prophylaxis Discussed with RN and RT/ family Cardiology to discuss Life Vest option Critical Care Time 1000-1030AM Pt. is FULL CODE NERISSA AGUILAR MD Apr 03, 2020 12:20
[2020-04-03] MEDS: IV NORMAL SALINE 1000ML BAG 1,000 ML IV SCH (12:59)
--- NOTE | 2020-04-03 14:58 | NUR ---
Patient was exubated at 1200 by Kati RT and MYRON Zhao. Patient tolerated extubation well. Patient has vomited 2 times since extubating but seems to be tolerating breathing well on his own. Patients family is at bedside. Dr. Galeas just spoke to the family about life vest and the future plan of care. Family understands the plan and will make a decision soon.
--- NOTE | 2020-04-03 15:44 | NUR ---
SS following up with discharge planning. SS reviewed pt chart and discussed with pt RN. Pt is now extubated. COVID19 negative. HIV positive. Per RN, cardiology has opted not to do AICD placement at this time. SS notified that pt will discharge to home for a month or two with Life Vest and will need to show compliance prior to getting the AICD. Per RN, pt is thinking about Life Vest at this time. SS will continue to follow for discharge planning.
[2020-04-03] MEDS: POTASSIUM CHLORIDE 20MEQ 100 ML IV SCH ×4 (17:18→20:15)
--- NOTE | 2020-04-03 20:18 | NUR ---
Pt is NPO until swallow test in AM. Dr. Harper informed and was told to hold meds until morning.
[2020-04-03] MEDS: ATORVASTATIN CALCIUM 40 MG TABLET. PO SCH (20:19)
[2020-04-03 21:26] LABS: MAGNESIUM 2.1 mg/dL (1.8-2.4); POTASSIUM 4.6 mmol/L (3.5-5.1)
[2020-04-04] VITALS (24 sets, daily range): BP systolic 126–153; BP diastolic 70–90
[2020-04-04] MEDS: ONDANSETRON PF 4 MG/2 ML VIAL. IVP PRN ×2 (02:37→05:24)
[2020-04-04] MEDS: PIPERACILLIN/TAZOBACTAM 3.375 GM in IV NORMAL SALINE 50ML 50 ML IV SCH (06:03)
--- NOTE | 2020-04-04 07:41 | PDOC ---
Infectious Disease Note Subjective: Subjective Patient extubated Alert Had nausea and vomiting multiple episodes yesterday Denies any fever, headache, nausea, vomiting, abdominal pain, diarrhea Vital Signs: Vital Signs Vital Signs Date Time Temp Pulse Resp B/P (MAP) Pulse Ox O2 Delivery O2 Flow Rate FiO2 04/04/20 07:00 94 12 146/73 (97) 100 Nasal Cannula 3.0 04/04/20 04:00 99.0 99.0 Physical Exam: PHYSICAL EXAM GENERAL: alert awake male on nasal O2 HEENT: Normocephalic atraumatic pupils equal, reactive. NECK: Supple. LUNGS: Clear anteriorly. HEART: S1, S2, tachycardia. ABDOMEN: Obese, mildly distended. Bowel sounds present. EXTREMITIES: No edema or cyanosis. Superficial thrombophlebitis right upper extremity DERMATOLOGIC: Warm and dry. No generalized rash. NEUROLOGIC alert oriented x3 grossly nonfocal Medications: Inpatient Meds: Current Medications Medications (Trade) Dose Ordered Sig/Guy Start Time Stop Time Status Last Admin Dose Admin Acetaminophen (Tylenol) 650 mg PRN Q6HRS PRN 03/20/20 09:00 03/27/20 20:51 650 MG Amiodarone HCl (Cordarone) 400 mg DAILY 03/30/20 09:00 04/03/20 08:15 400 MG Amiodarone HCl 150 mg/Dextrose 103 ml @ 618 mls/hr 1X ONCE 03/26/20 19:45 03/26/20 19:54 DC 03/26/20 19:44 618 MLS/HR Amiodarone HCl 450 mg/Dextrose 259 ml @ 16.7 mls/hr CONT PRN 03/27/20 03:00 03/27/20 18:16 DC 03/27/20 18:15 16.7 MLS/HR Atorvastatin Calcium (Lipitor) 80 mg QHS 03/20/20 21:00 04/02/20 20:32 80 MG Atropine Sulfate (ATROPINE 0.5mg SYRINGE) 0.5 mg PRN Q5MIN PRN 03/27/20 01:45 03/27/20 16:31 DC Chlorhexidine Gluconate (Peridex) 15 ml BID 03/26/20 21:00 03/28/20 11:44 DC 03/27/20 20:51 15 ML Clopidogrel Bisulfate (Plavix) 75 mg [id number] 03/20/20 12:00 04/03/20 08:16 75 MG Dexmedetomidine HCl 400 mcg/ Sodium Chloride 100 ml @ 0 mls/hr CONT PRN 03/27/20 01:45 04/03/20 01:36 9 MLS/HR Docusate Sodium (Colace Solution) 100 mg BID 03/20/20 09:00 03/26/20 15:28 DC 03/26/20 08:35 100 MG Dopamine HCl/ Dextrose 250 ml @ 17.681 mls/ hr CONT PRN 03/20/20 04:30 Enoxaparin Sodium (Lovenox 40mg Syringe) 40 mg Q24H 04/02/20 12:00 04/03/20 12:16 40 MG Epinephrine HCl (EPINEPHrine SYRINGE) 1 mg STK-MED ONCE 03/29/20 12:00 03/30/20 13:02 DC Etomidate (Amidate) 20 mg STK-MED ONCE 03/26/20 23:34 03/26/20 23:35 DC Famotidine (Pepcid Vial) 20 mg BID 03/20/20 11:00 03/20/20 12:35 DC Fentanyl Citrate 30 ml @ 0 mls/hr CONT PRN 03/26/20 19:15 UNV Fentanyl Citrate (Fentanyl 2ml Vial) 50 mcg PRN Q1HR PRN 03/26/20 19:15 04/04/20 02:45 50 MCG Furosemide (Lasix) 40 mg DAILY 03/22/20 11:00 04/03/20 08:16 40 MG Haloperidol Lactate (Haldol Inj) 5 mg PRN Q6HRS PRN 03/23/20 21:00 03/24/20 08:52 DC Heparin Sodium (Porcine) (Heparin Sodium) 2,400 unit PRN Q6HRS PRN 03/20/20 04:30 03/22/20 10:15 DC 03/21/20 14:17 2,400 UNIT Heparin Sodium/ Dextrose 250 ml @ 0 mls/hr CONT PRN 03/20/20 04:30 03/22/20 10:15 DC 03/21/20 22:15 19.8 MLS/HR Heparin Sodium/ Sodium Chloride (HEPARIN for ARTERIAL LINE FLUSH) 1,000 unit 1X ONCE 03/27/20 10:00 03/27/20 10:01 DC 03/27/20 10:00 1,000 UNIT Info (CONTRAST GIVEN -- Rx MONITORING) 1 each PRN DAILY PRN 03/27/20 10:00 03/29/20 09:59 DC Info (Icu Electrolyte Protocol) 1 ea DAILY 03/21/20 09:00 04/02/20 07:54 1 EA Iodixanol (Visipaque 320) 100 ml 1X ONCE 03/27/20 10:00 03/27/20 10:01 DC 03/27/20 11:05 107 ML Labetalol HCl (Normodyne Iv Push) 10 mg PRN Q2HR PRN 03/26/20 19:15 Lidocaine HCl (Lidocaine 1% 20ml Vial) 20 ml 1X ONCE 03/27/20 10:00 03/27/20 10:01 DC 03/27/20 10:41 13 ML Lidocaine HCl (Lidocaine HCl 2% Abboject) 100 mg STK-MED ONCE 03/29/20 12:00 03/30/20 13:02 DC Linezolid/Dextrose 300 ml @ 300 mls/hr Q12HR 03/21/20 09:00 03/28/20 08:39 DC 03/28/20 08:19 300 MLS/HR Lorazepam (Ativan Inj) 1 mg PRN Q1HR PRN 03/20/20 04:45 03/26/20 15:29 DC 03/26/20 14:30 1 MG Magnesium Sulfate 50 ml @ 25 mls/hr 1X ONCE 04/02/20 12:00 04/02/20 13:59 DC 04/02/20 11:47 25 MLS/HR Midazolam HCl 100 ml @ 0 mls/hr CONT PRN 03/26/20 19:15 04/01/20 12:21 5 MLS/HR Milrinone Lactate/ Dextrose 100 ml @ 6.735 mls/ hr CONT PRN 03/30/20 15:30 04/01/20 20:33 6.735 MLS/HR Morphine Sulfate (Morphine Sulfate) 4 mg PRN Q1HR PRN 03/26/20 19:15 03/28/20 22:35 DC Nicardipine HCl 50 mg/Sodium Chloride 250 ml @ 25 mls/hr CONT PRN 04/02/20 12:00 04/03/20 21:26 12.5 MLS/HR Non-Formulary Medication (ABACAVIR/ DOLUTEGRAVIR/ LAMIVUDINE (Triumeq) tablet) 1 ea DAILY 03/20/20 17:00 04/03/20 08:16 1 EA Norepinephrine Bitartrate 8 mg/ Dextrose 258 ml @ 18.247 mls/ hr CONT PRN 03/20/20 04:15 03/28/20 19:12 18.247 MLS/HR Olanzapine (ZyPREXA ZYDIS) 5 mg PRN Q4HRS PRN 03/26/20 19:15 Ondansetron HCl (Zofran) 4 mg PRN Q6HRS PRN 03/20/20 10:30 04/04/20 05:24 4 MG Pantoprazole Sodium (PROTONIX VIAL for IV PUSH) 40 mg DAILYAC 03/20/20 12:30 04/03/20 08:16 40 MG Piperacillin Sod/ Tazobactam Sod (Zosyn Per Pharmacy) 1 each PRN DAILY PRN 03/20/20 09:30 Piperacillin Sod/ Tazobactam Sod 3.375 gm/Sodium Chloride 50 ml @ 100 mls/hr Q6HRS 03/20/20 10:00 04/04/20 06:03 100 MLS/HR Potassium Bicarbonate (Potassium Effervescent Tablet) 40 meq 1X ONCE 04/02/20 09:30 04/02/20 09:31 DC 04/02/20 09:34 40 MEQ Potassium Chloride/Water 100 ml @ 100 mls/hr Q1H 04/03/20 17:30 04/03/20 21:29 DC 04/03/20 20:15 100 MLS/HR Propofol 100 ml @ 0 mls/hr CONT PRN 03/26/20 19:15 04/03/20 05:44 18.7 MLS/HR Sodium Bicarbonate (Sodium Bicarb Adult 8.4% Syr) 50 meq STK-MED ONCE 03/26/20 21:00 03/27/20 19:23 DC Sodium Chloride 1,000 ml @ 55 mls/hr [id number] 04/03/20 12:00 04/03/20 12:59 55 MLS/HR Sodium Chloride (Normal Saline Flush) 3 ml QSHIFT PRN 03/20/20 10:30 Succinylcholine Chloride (Anectine) 200 mg STK-MED ONCE 03/26/20 23:34 03/26/20 23:35 DC Vancomycin HCl (Vancomycin Oral Solution) 125 mg BID 03/20/20 21:30 04/03/20 08:17 125 MG Labs: Lab Laboratory Tests Test 04/03/20 11:40 04/03/20 21:00 O2 Saturation 94 % (92-99) Arterial Blood pH 7.40 (7.35-7.45) Arterial Blood pCO2 at Patient Temp 36 mmHg (35-46) Arterial Blood pO2 at Patient Temp 75 mmHg (75-108) Arterial Blood HCO3 22 mmol/L (21-28) Arterial Blood Base Excess -3 mmol/L (-3-3) FiO2 40% 02/24 Potassium Level 4.6 mmol/L (3.5-5.1) Magnesium Level 2.1 mg/dL (1.8-2.4) Objective: Assessment: 1. Fever, likely aspiration. 2. Witnessed cardiac arrest, status post defibrillation. 3. Leukocytosis and lactic acidosis. 4. Human immunodeficiency virus, CD4 496 March 2019 was 403 on 01/16 viral load less than 20 on 01/23,on Triumeq. 5. Acute hypoxic respiratory failure Extubated, reintubated Mar 26 6. History of ventricular tachycardia, Coronary artery disease, status post PCI. 7. Status post pacemaker for bradycardia 12/27 at [place]. 8. History of acute kidney injury, on hemodialysis in the past. 9. 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 10. Substance dependence. UDS positive for cocaine at outside hospital. 11. Hypertension/hyperlipidemia 12. Hypokalemia/hypomagnesemia. 13. H/O Chronic systolic congestive heart failure. 14. History of rectal abscess. 15. History of Necrotizing Pneumonia with Klebsiella at [facility] November 2019 16. V. fib arrest, torsades here on Mar 26 19. Severe cardiomyopathy 20. Anemia of chronic disease 21. History of noncompliance Plan: Plan of Care DC Elizabetn DC p.o. vancomycin Maintain aspiration precaution Continue Triumeq Follow up labs and cultures. Continue supportive care Discussed with nursing. MILLY NICOLE MD Apr 04, 2020 07:41
[2020-04-04] MEDS: CLOPIDOGREL BISULFATE 75 MG TABLET PO SCH (08:00)
[2020-04-04] MEDS: PANTOPRAZOLE IV PUSH 40 MG VIAL. IVP SCH (08:24)
[2020-04-04] MEDS: FUROSEMIDE 40 MG/4 ML VIAL. IVP SCH (08:25)
[2020-04-04] MEDS: LAMIVUDINE PO SCH (08:27)
[2020-04-04] MEDS: AMIODARONE HCL 200 MG TABLET. PO SCH (08:27)
[2020-04-04] MEDS: ABACAVIR PO SCH (08:27)
[2020-04-04] MEDS: ELECTROLYTE (ICU) PROTOCOL. MC SCH (08:27)
[2020-04-04] MEDS: DOLUTEGRAVIR PO SCH (08:27)
--- NOTE | 2020-04-04 09:06 | PDOC ---
[employer] PROGRESS NOTE Date of Service DOS: DATE: 04/04/20 TIME: 09:04 Chief Complaint Chief Complaint 1. out of hospital arrest , witness cardiac arrest; Defibrillation // AMI ruled out. 2. H/o Vfib probable ischemic in nature, antiarrhythmics discontinued in past due to QTc prolongation of 600. 3. Acute hypoxic respiratory failure requiring vent support 4. CAD s/p PCI/BMS to the LCx 12/11/19. Treated with ASA,Brilinta initially, which was held due to recurrent GIB requiring transfusions.Due to recent PCI/BMS, Plavix was resumed while at [facility]. ASA was d/c'd 5. Chronic systolic CHF 6. ischemic cardiomyopathy LVEF 20-25%. 7. SSS s/p leadless PPM 8. Hypertension; // requiring pressor support 9. Hypokalemia, hypomagnesemia 10. H/o DAIJA requiringHD; renal function improvedand HD catheter removed 11. 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 HIV 13. Substance abuse; UDS + cocaine , ALCOHOL, TOBACCO 14. Leukocytosis, fevers. ? sepsis Covid negative. 15. H/o Vfib OOH arrest; probable ischemic in nature, antiarrhythmics discontinued in past due to QTc prolongation of 600. EKG at [facility] with QTc 507, 528. 16. Human immunodeficiency virus, CD4 was 403 on 01/16 viral load less than 20 on 01/23on [facility]. 17. History of ventricular tachycardia, Coronary artery disease, status post PCI. 18. Status post pacemaker for bradycardia 12/27 at [place]. 19. hypernatremia, volume excess History of Present Illness History of Present Illness 04/04/2020 Patient seen and examined in the ICU He got extubated yesterday He is very weak soft-spoken probably confused Chart reviewed Discussed with RN He is on a Cardene drip 04/03/2020 Patient seen and examined in the ICU He remains intubated AC/20/500/40 percent with 5 of PEEP He has mitts on for his safety Has [place] to bedside drainage Has SCDs on Sedated with Dex fentanyl and propofol Has IV Zosyn hanging Chart reviewed Discussed with RN He remains critically ill 04/02/2020 Patient seen and examined in ICU He remains intubated Assist-control//2 500/40% FiO2 with 5 of PEEP Discussed with RN Chart reviewed Patient on milrinone drip He is also on propofol drip for sedation He remains critically ill Identification/Chief Complaint Chief Complaint admitted to icu , out of hospial arrest CAD s/p PCI/stent, cardiomyopathy, and prior cardiac arrest, presented secondary to cardiac arrest at home. Was at home with partner, Stevenson, watching television. Patient suddenly started breathing more deeply and began gasping for air. Eyes were wide and glassy. Was unresponsive. Partner was unable to feel pulse so he put him on the floor, called EMS and began chest compressions. Partner reports him drinking 3 malt beverages that evening while watching TV. No known sick contacts. EMS arrived within minutes. ROSC returned following one defibrillation. Although partner declined drug use, Narcan was administered en route due to pinpoint pupils. Limited effect from the Narcan. UDS was + for cocaine. IS COVID 19 PUI hx cardiac arrest on December 19, 2019. Patient was apparently found arrest in his car EMS noted in v-fib. ROSC was achieved following 1 defibrillation and 1 round of epi.//activated as STEMI with LBBB. Emergent cath notable for blockage of left circumflex. //PCI/BMS to the Left circumflex. 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 LVEF noted at 20-25%. Developed DAIJA due to cardiogenic shock. had multiple episodes of bradycardia/significant pauses mostly related to suctioning. then leadlessPPM placement.Treated for Klebsiella PNA as well. course further complicated by GIB requiring tranfusion. 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 Remains on vent, FiO2 40%, PEEP 5. Swelling noted to his right arm, will obtain ultrasound to evaluate. Discussed with RN, will attempt trial extubation tomorrow. 03/31 Patient seen in ICU. Afebrile. On vent FiO2 40%, PEEP 5. Hemoglobin 7.2 and holding steady. We will continue to monitor and transfuse <7. Antibiotics per ID. 03/30 Afebrile. On vent, FiO2 40%, PEEP 5. Patient needs AICD, but some significant complaints issues. I believe cardiology is to consult neurology for further input on this issue. Charts and labs reviewed. 03/29 Patient remains in ICU on vent. FiO2 40%, PEEP 5. Discussed with RN, episode of V-tach overnight. Cardiology to consider AICD. Will continue with ant ibiotics and diuresis. 03/28 Afebrile. No acute events overnight. On vent, FiO2 40%, PEEP 5. Potassium low today, will replace. Continue supportive care and antibiotics. Discussed with RN 03/27 Patient seen in ICU. Breathing on mechanical ventilator, FiO2 60%, PEEP 5. Patient failed extubation yesterday. Continue Zosyn, Zyvox, p.o. vancomycin. 03/26 Patient seen and evaluated in ICU. On vent FiO2 35%, PEEP 5. Afebrile. Continue Zosyn, Zyvox, and p.o. vancomycin. Chart and labs reviewed, discussed with RN. Vitals/I&O Vitals/I&O: Vital Signs Date Time Temp Pulse Resp B/P (MAP) Pulse Ox O2 Delivery O2 Flow Rate FiO2 04/04/20 07:00 94 12 146/73 (97) 100 Nasal Cannula 3.0 04/04/20 04:00 99.0 99.0 I & O 04/03/20 04/03/20 04/04/20 15:00 23:00 07:00 Intake Total 150 ml 1077.95 ml 177 ml Output Total 4520 ml 1375 ml 1500 ml Balance -4370 ml -297.05 ml -1323 ml Physical Exam Physical Exam: GENERAL: alert awake male on nasal O2 HEENT: Normocephalic atraumatic pupils equal, reactive. NECK: Supple. LUNGS: Clear anteriorly. HEART: S1, S2, tachycardia. ABDOMEN: Obese, mildly distended. Bowel sounds present. EXTREMITIES: No edema or cyanosis. Superficial thrombophlebitis right upper extremity DERMATOLOGIC: Warm and dry. No generalized rash. NEUROLOGIC alert oriented x3 grossly nonfocal General: Other (Awake but confused) Heart: Regular rate Lungs: Crackles Abdomen: Normal bowel sounds Extremities: No clubbing Skin: No rashes Labs Labs: Laboratory Tests Test 04/03/20 11:40 04/03/20 21:00 O2 Saturation 94 % (92-99) Arterial Blood pH 7.40 (7.35-7.45) Arterial Blood pCO2 at Patient Temp 36 mmHg (35-46) Arterial Blood pO2 at Patient Temp 75 mmHg (75-108) Arterial Blood HCO3 22 mmol/L (21-28) Arterial Blood Base Excess -3 mmol/L (-3-3) FiO2 40% 02/24 Potassium Level 4.6 mmol/L (3.5-5.1) Magnesium Level 2.1 mg/dL (1.8-2.4) Assessment and Plan Assessmemt and Plan 0. Status post extubation yesterday 1. out of hospital arrest , witness cardiac arrest; Defibrillation // AMI ruled out. 2. H/o Vfib probable ischemic in nature, antiarrhythmics discontinued in past due to QTc prolongation of 600. 3. Acute hypoxic respiratory failure 4. CAD s/p PCI/BMS to the LCx 12/11/19. Treated with ASA,Brilinta initially, which was held due to recurrent GIB requiring transfusions.Due to recent PCI/BMS, Plavix was resumed while at [facility]. ASA was d/c'd 5. Chronic systolic CHF 6. ischemic cardiomyopathy LVEF 20-25%. 7. SSS s/p leadless PPM 8. Hypertension; // requiring pressor support 9. Hypokalemia, hypomagnesemia 10. H/o DAIJA requiringHD; renal function improvedand HD catheter removed 11. 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 HIV 13. Substance abuse; UDS + cocaine , ALCOHOL, TOBACCO 14. Leukocytosis, fevers. ? sepsis Covid negative. 15. H/o Vfib OOH arrest; probable ischemic in nature, antiarrhythmics discontinued in past due to QTc prolongation of 600. EKG at [facility] with QTc 507, 528. 16. Human immunodeficiency virus, CD4 was 403 on 01/16 viral load less than 20 on 01/23on [facility]. 17. History of ventricular tachycardia, Coronary artery disease, status post PCI. 18. Status post pacemaker for bradycardia 12/27 at [place]. 19. hypernatremia, volume excess Plan ICU monitoring O2 per nasal cannula Cardiology is following Pulmonary is following Trend labs and replace lites as needed Secondary prevention measures as able Resume Plavix. No ASA due to recent GIB Monitor LFTs Cardene drip Pressor support; wean as able Hold lisinopril, Toprol with hypotension Echo Heparin drip Nutritional support Continue IV antibiotics (Zosyn) Continue p.o. vancomycin for prophylaxis with history of recurrent C. difficile [facility] Remains very ill but improving Appreciate subspecialist input Comment Review of Relevant I have reviewed the following items joel (where applicable) has been applied. Medications: Current Medications Medications (Trade) Dose Ordered Sig/Guy Route PRN Reason Start Time Stop Time Status Last Admin Dose Admin Sodium Chloride 1,000 ml @ 55 mls/hr [id number] IV 04/03/20 12:00 04/03/20 12:59 Potassium Chloride/Water 100 ml @ 100 mls/hr Q1H IV 04/03/20 17:30 04/03/20 21:29 DC 04/03/20 20:15 Justifications for Admission Other Justification CARDIAC ARREST SERA GREGORIO III DO Apr 04, 2020 09:06
--- NOTE | 2020-04-04 09:29 | PDOC ---
Date of Service: DATE: 04/04/20 TIME: 09:25 Subjective: Subjective: Denies abdominal pain. Objective: Objective: D/w nurse - extubated. Has had vomiting - first tube feeds, then bilious, then retching. Asking to eat. Vital Signs: Vital Signs Date Time Temp Pulse Resp B/P (MAP) Pulse Ox O2 Delivery O2 Flow Rate FiO2 04/04/20 09:00 98 16 137/80 (99) 100 Nasal Cannula 2.0 04/04/20 08:00 99.1 99.1 Labs: Laboratory Tests Test 04/03/20 11:40 04/03/20 21:00 O2 Saturation 94 % Arterial Blood pH 7.40 Arterial Blood pCO2 at Patient Temp 36 mmHg Arterial Blood pO2 at Patient Temp 75 mmHg Arterial Blood HCO3 22 mmol/L Arterial Blood Base Excess -3 mmol/L FiO2 40% 02/24 Potassium Level 4.6 mmol/L Magnesium Level 2.1 mg/dL PE: GEN: NAD LUNGS: clear, NC 2L HEART: RR ABD: some distention, a few quiet gurgles, non-tender NEURO/PSYCH: awake and alert, nods yes and no A/P: S/p arrests, CAD, CHF, resp failure (extubated again 04/03) Vomiting Anemia (stable - checked 04/02), h/o GI bleeding (none observed this admission) +cocaine, non-compliance COVID negative -- Will review w/ Dr. Barrera. Continue IV PPI for now. 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 Justicifation of Admission Dx: Justifications for Admission: Justification of Admission Dx: Yes YNES CLEARY Apr 04, 2020 09:29
[2020-04-04] MEDS: IV NORMAL SALINE 1000ML BAG 1,000 ML IV SCH (10:42)
--- NOTE | 2020-04-04 10:50 | NUR ---
SS following up with discharge planning. SS reviewed pt chart and discussed with pt RN. Pt is currently requiring oxygen at two liters nasal canula. HIV positive. COVID19 negative. Currently awaiting Cardiology's input on Life Vest. Pt failed swallow study and is currently NPO. SS will continue to follow for discharge planning.
--- NOTE | 2020-04-04 10:58 | PDOC ---
PROGRESS NOTES Date of Service DATE: 04/04/20 TIME: 10:56 Assessment Anoxic encephalopathy following V. tach cardiac arrest, head CT negative. Coronary artery disease status-post stent, cardiomyopathy requiring defibrillator placement which has not been done yet due to his drug use. HIV, pacemaker, hyperlipidemia, hypertension, pneumonia, gastrointestinal bleeding, history of acute kidney injury requiring dialysis, no longer on this, alcohol and substance abuse Plan Continue current supportive care. Subjective He denies pain Objective Vital Signs Date Time Temp Pulse Resp B/P (MAP) Pulse Ox O2 Delivery O2 Flow Rate FiO2 04/04/20 10:00 86 16 141/81 (101) 99 Nasal Cannula 2.0 04/04/20 08:00 99.1 99.1 Intake and Output 04/04/20 07:00 Intake Total 1404.95 ml Output Total 7395 ml Balance -5990.05 ml IV Total 1304.95 ml Tube Feeding 100 ml Output Urine Total 7395 ml # Bowel Movements 2 PHYSICAL EXAM Alert knows name, does not know name of hospital or location, but knows he is in the hospital [facility]. EOMI. CN: no focal findings. Muscle tone: normal. Muscle strength: 3/5 DTR: 1+ Plantar reflex: Flexor Gait: not examined in bed. Sensory exam: no abnormal findings. No cerebellar signs elicited. Review of Relevant I have reviewed the following items joel (where applicable) has been applied. Labs Laboratory Tests Test 04/02/20 13:56 04/03/20 04:58 04/03/20 07:30 04/03/20 11:40 Potassium Level 4.4 mmol/L (3.5-5.1) 3.8 mmol/L (3.5-5.1) Sodium Level 145 mmol/L (136-145) Chloride Level 109 mmol/L (98-107) Carbon Dioxide Level 24 mmol/L (21-32) Anion Gap 12 (6-14) Blood Urea Nitrogen 5 mg/dL (8-26) Creatinine 1.0 mg/dL (0.7-1.3) Estimated GFR (Cockcroft-Gault) 94.9 Glucose Level 114 mg/dL (70-99) Calcium Level 8.6 mg/dL (8.5-10.1) Magnesium Level 2.4 mg/dL (1.8-2.4) O2 Saturation 98 % (92-99) 94 % (92-99) Arterial Blood pH 7.46 (7.35-7.45) 7.40 (7.35-7.45) Arterial Blood pCO2 at Patient Temp 32 mmHg (35-46) 36 mmHg (35-46) Arterial Blood pO2 at Patient Temp 117 mmHg (75-108) 75 mmHg (75-108) Arterial Blood HCO3 22 mmol/L (21-28) 22 mmol/L (21-28) Arterial Blood Base Excess -1 mmol/L (-3-3) -3 mmol/L (-3-3) FiO2 40 40% 02/24 Test 04/03/20 21:00 Potassium Level 4.6 mmol/L (3.5-5.1) Magnesium Level 2.1 mg/dL (1.8-2.4) Laboratory Tests Test 04/03/20 11:40 04/03/20 21:00 O2 Saturation 94 % (92-99) Arterial Blood pH 7.40 (7.35-7.45) Arterial Blood pCO2 at Patient Temp 36 mmHg (35-46) Arterial Blood pO2 at Patient Temp 75 mmHg (75-108) Arterial Blood HCO3 22 mmol/L (21-28) Arterial Blood Base Excess -3 mmol/L (-3-3) FiO2 40% 02/24 Potassium Level 4.6 mmol/L (3.5-5.1) Magnesium Level 2.1 mg/dL (1.8-2.4) Microbiology 03/26/20 Urine Culture - Final, Complete 03/21/20 Gram Stain Evaluation - Final, Complete 03/21/20 Respiratory Culture - Final, Complete 03/20/20 Blood Culture - Final, Complete NO GROWTH AFTER 5 DAYS Medications Current Medications Norepinephrine Bitartrate 8 mg/ Dextrose 258 ml @ 18.247 mls/ hr CONT PRN IV PER PROTOCOL Last administered on 03/28/20at 19:12; Start 03/20/20 at 04:15 Dopamine HCl/ Dextrose 250 ml @ 17.681 mls/ hr CONT PRN IV SEE I/O RECORD; Start 03/20/20 at 04:30 Heparin Sodium/ Dextrose 250 ml @ 0 mls/hr CONT PRN IV PER PROTOCOL Last administered on 03/21/20at 22:15; Start 03/20/20 at 04:30; Stop 03/22/20 at 10:15; Status DC Heparin Sodium (Porcine) (Heparin Sodium) 2,400 unit PRN Q6HRS PRN IV FOR UFH LEVEL LESS THAN 0.2 Last administered on 03/21/20at 14:17; Start 03/20/20 at 04:30; Stop 03/22/20 at 10:15; Status DC Fentanyl Citrate 30 ml @ 0 mls/hr CONT PRN IV SEE PROTOCOL Last administered on 03/23/20at 06:19; Start 03/20/20 at 04:45; Stop 03/23/20 at 19:11; Status DC Lorazepam (Ativan Inj) 1 mg PRN Q1HR PRN IV SEE COMMENTS Last administered on 03/26/20at 14:30; Start 03/20/20 at 04:45; Stop 03/26/20 at 15:29; Status DC Fentanyl Citrate (Fentanyl 2ml Vial) 25 mcg PRN Q1HR PRN IV SEE COMMENTS; Start 03/20/20 at 04:45; Stop 03/26/20 at 15:29; Status DC Fentanyl Citrate (Fentanyl 2ml Vial) 50 mcg PRN Q1HR PRN IV SEE COMMENTS; Start 03/20/20 at 04:45; Stop 03/26/20 at 15:29; Status DC Chlorhexidine Gluconate (Peridex) 15 ml BID MM ; Start 03/20/20 at 09:00; Stop 03/20/20 at 07:24; Status DC Famotidine (Pepcid Vial) 20 mg BID IVP Last administered on 03/20/20at 08:07; Start 03/20/20 at 09:00; Stop 03/20/20 at 12:52; Status DC Morphine Sulfate (Morphine Sulfate) 2 mg PRN Q1HR PRN IV SEE COMMENTS.; Start 03/20/20 at 04:45; Stop 03/26/20 at 04:43; Status DC Morphine Sulfate (Morphine Sulfate) 4 mg PRN Q1HR PRN IV SEE COMMENTS.; Start 03/20/20 at 04:45; Stop 03/26/20 at 04:43; Status DC Midazolam HCl 100 ml @ 0 mls/hr CONT PRN IV SEE PROTOCOL Last administered on 03/26/20at 02:42; Start 03/20/20 at 04:45; Stop 03/26/20 at 15:29; Status DC Docusate Sodium (Colace Solution) 100 mg BID NG Last administered on 03/26/20 08:35; Start 03/20/20 at 09:00; Stop 03/26/20 at 15:28; Status DC Sodium Chloride 1,000 ml @ 55 mls/hr [id number] IV Last administered on 04/02/20 19:36; Start 03/20/20 at 06:30; Stop 04/03/20 at 06:08; Status DC Acetaminophen (Tylenol) 650 mg PRN Q6HRS PRN PEG MILD PAIN / TEMP > 100.3'F Last administered on 03/27/20 20:51; Start 03/20/20 at 09:00 Piperacillin Sod/ Tazobactam Sod (Zosyn Per Pharmacy) 1 each PRN DAILY PRN MC SEE COMMENTS; Start 03/20/20 at 09:30; Stop 04/04/20 at 10:19; Status DC Piperacillin Sod/ Tazobactam Sod 3.375 gm/Sodium Chloride 50 ml @ 100 mls/hr Q6HRS IV Last administered on 04/04/20 06:03; Start 03/20/20 at 10:00; Stop 04/04/20 at 08:17; Status DC Magnesium Sulfate 50 ml @ 25 mls/hr 1X ONCE IV Last administered on 03/20/20at 10:21; Start 03/20/20 at 09:45; Stop 03/20/20 at 11:44; Status DC Clopidogrel Bisulfate (Plavix) 75 mg DAILYWBKFT PO Last administered on 04/03/20 08:16; Start 03/20/20 at 12:00 Atorvastatin Calcium (Lipitor) 80 mg QHS PO Last administered on 04/02/20 20:32; Start 03/20/20 at 21:00 Ondansetron HCl (Zofran) 4 mg PRN Q6HRS PRN IVP NAUSEA/VOMITING Last administered on 04/04/20 05:24; Start 03/20/20 at 10:30 Famotidine (Pepcid Vial) 20 mg BID IVP ; Start 03/20/20 at 11:00; Stop 03/20/20 at 12:35; Status DC Info (Icu Electrolyte Protocol) 1 ea DAILY MC Last administered on 1/11/21at 07:54; Start 03/21/20 at 09:00 Sodium Chloride (Normal Saline Flush) 3 ml QSHIFT PRN IV AFTER MEDS AND BLOOD DRAWS; Start 03/20/20 at 10:30 Pantoprazole Sodium (PROTONIX VIAL for IV PUSH) 40 mg DAILYAC IVP Last administered on 04/04/20at 08:24; Start 03/20/20 at 12:30 Potassium Bicarbonate (Potassium Effervescent Tablet) 40 meq 1X ONCE PEG Last administered on 03/20/20at 14:47; Start 03/20/20 at 14:00; Stop 03/20/20 at 14:20; Status DC Non-Formulary Medication (ABACAVIR/ DOLUTEGRAVIR/ LAMIVUDINE (Triumeq) tablet) 1 ea DAILY PO Last administered on 04/03/20 08:16; Start 03/20/20 at 17:00 Vancomycin HCl (Vancomycin Oral Solution) 125 mg BID PO Last administered on 04/03/20 08:17; Start 03/20/20 at 21:30; Stop 04/04/20 at 08:17; Status DC Linezolid/Dextrose 300 ml @ 300 mls/hr Q12HR IV Last administered on 03/28/20at 08:19; Start 03/21/20 at 09:00; Stop 03/28/20 at 08:39; Status DC Furosemide (Lasix) 40 mg DAILY IVP Last administered on 04/04/20at 08:25; Start 03/22/20 at 11:00 Potassium Chloride/Water 100 ml @ 50 mls/hr 1X ONCE IV Last administered on 03/22/20at 12:58; Start 03/22/20 at 10:30; Stop 03/22/20 at 12:29; Status DC Fentanyl Citrate 55 ml @ 0 mls/hr CONT PRN IV SEE PROTOCOL Last administered on 04/03/20at 00:18; Start 03/23/20 at 19:15 Dexmedetomidine HCl 400 mcg/ Sodium Chloride 100 ml @ 0 mls/hr CONT PRN IV PER PROTOCOL Last administered on 03/24/20at 03:33; Start 03/23/20 at 21:00; Stop 03/24/20 at 08:52; Status DC Sodium Chloride 500 ml @ 500 mls/hr 1X PRN PRN IV SEE COMMENTS; Start 03/23/20 at 21:00 Atropine Sulfate (ATROPINE 0.5mg SYRINGE) 0.5 mg PRN Q5MIN PRN IV SEE COMMENTS; Start 03/23/20 at 21:00 Haloperidol Lactate (Haldol Inj) 5 mg PRN Q6HRS PRN IVP AGITATION; Start 03/23/20 at 21:00; Stop 03/24/20 at 08:52; Status DC Propofol 100 ml @ 2.748 mls/ hr CONT PRN IV PER PROTOCOL Last administered on 03/25/20at 01:17; Start 03/24/20 at 09:00; Stop 03/26/20 at 15:31; Status DC Potassium Chloride/Water 100 ml @ 100 mls/hr Q1H IV Last administered on 03/25/20at 19:02; Start 03/25/20 at 10:00; Stop 03/25/20 at 17:59; Status DC Potassium Chloride/Water 100 ml @ 100 mls/hr Q1H IV ; Start 03/25/20 at 15:00; Stop 03/25/20 at 13:59; Status DC Potassium Bicarbonate (Potassium Effervescent Tablet) 40 meq 1X ONCE PO Last administered on 03/26/20at 08:36; Start 03/26/20 at 08:15; Stop 03/26/20 at 08:22; Status DC Propofol 100 ml @ As Directed STK-MED ONCE IV ; Start 03/26/20 at 19:07; Stop 03/26/20 at 19:07; Status DC Fentanyl Citrate 30 ml @ 0 mls/hr CONT PRN IV SEE PROTOCOL; Start 03/26/20 at 19:15; Status Cancel Propofol 100 ml @ 0 mls/hr CONT PRN IV PER PROTOCOL; Start 03/26/20 at 19:15; Status Cancel Fentanyl Citrate (Fentanyl 2ml Vial) 25 mcg PRN Q1HR PRN IV SEE COMMENTS Last administered on 04/03/20at 21:02; Start 03/26/20 at 19:15 Fentanyl Citrate (Fentanyl 2ml Vial) 50 mcg PRN Q1HR PRN IV SEE COMMENTS Last administered on 04/04/20at 02:45; Start 03/26/20 at 19:15 Chlorhexidine Gluconate (Peridex) 15 ml BID MM Last administered on 03/27/20at 20:51; Start 03/26/20 at 21:00; Stop 03/28/20 at 11:44; Status DC Morphine Sulfate (Morphine Sulfate) 2 mg PRN Q1HR PRN IV SEE COMMENTS.; Start 03/26/20 at 19:15; Status Cancel Morphine Sulfate (Morphine Sulfate) 2 mg PRN Q1HR PRN IV SEE COMMENTS.; Start 03/26/20 at 19:15; Stop 03/28/20 at 22:35; Status DC Morphine Sulfate (Morphine Sulfate) 4 mg PRN Q1HR PRN IV SEE COMMENTS.; Start 03/26/20 at 19:15; Stop 03/28/20 at 22:35; Status DC Olanzapine (ZyPREXA ZYDIS) 5 mg PRN Q4HRS PRN PO AGITATION, DELIRIUM; Start 03/26/20 at 19:15 Labetalol HCl (Normodyne Iv Push) 10 mg PRN Q2HR PRN IVP HYPERTENSION; Start 03/26/20 at 19:15 Fentanyl Citrate 30 ml @ 0 mls/hr CONT PRN IV SEE PROTOCOL; Start 03/26/20 at 19:15; Status UNV Propofol 100 ml @ 0 mls/hr CONT PRN IV PER PROTOCOL Last administered on 04/03/20at 05:44; Start 03/26/20 at 19:15 Midazolam HCl 100 ml @ 0 mls/hr CONT PRN IV SEE PROTOCOL Last administered on 04/01/20at 12:21; Start 03/26/20 at 19:15 Amiodarone HCl 150 mg/Dextrose 103 ml @ 618 mls/hr 1X ONCE IV Last administered on 03/26/20at 19:44; Start 03/26/20 at 19:45; Stop 03/26/20 at 19:54; Status DC Amiodarone HCl 450 mg/Dextrose 259 ml @ 0 mls/hr 1X ONCE IV Last administered on 03/26/20at 19:45; Start 03/26/20 at 19:45; Stop 03/26/20 at 19:46; Status DC Potassium Chloride/Water 100 ml @ 100 mls/hr Q1H IV Last administered on 03/27/20at 00:44; Start 03/26/20 at 21:00; Stop 03/27/20 at 00:59; Status DC Sodium Chloride 500 ml @ 500 mls/hr 1X ONCE IV Last administered on 03/26/20at 21:09; Start 03/26/20 at 21:15; Stop 03/26/20 at 22:14; Status DC Magnesium Sulfate 100 ml @ 50 mls/hr DAILY IV Last administered on 03/26/20at 22:23; Start 03/26/20 at 22:00; Stop 03/29/20 at 03:54; Status DC Etomidate (Amidate) 20 mg STK-MED ONCE IV ; Start 03/26/20 at 23:34; Stop 03/26/20 at 23:35; Status DC Succinylcholine Chloride (Anectine) 200 mg STK-MED ONCE .ROUTE ; Start 03/26/20 at 23:34; Stop 03/26/20 at 23:35; Status DC Lidocaine HCl (Lidocaine HCl 2% Abboject) 80 mg 1X ONCE IV Last administered on 03/27/20at 01:50; Start 03/27/20 at 02:00; Stop 03/27/20 at 02:01; Status DC Potassium Chloride/Water 100 ml @ 100 mls/hr Q1H IV Last administered on 03/27/20at 07:24; Start 03/27/20 at 02:00; Stop 03/27/20 at 05:59; Status DC Dexmedetomidine HCl 400 mcg/ Sodium Chloride 100 ml @ 0 mls/hr CONT PRN IV PER PROTOCOL Last administered on 04/03/20at 01:36; Start 03/27/20 at 01:45 Sodium Chloride 500 ml @ 500 mls/hr 1X PRN PRN IV SEE COMMENTS; Start 03/27/20 at 01:45; Status Cancel Atropine Sulfate (ATROPINE 0.5mg SYRINGE) 0.5 mg PRN Q5MIN PRN IV SEE COMMENTS; Start 03/27/20 at 01:45; Stop 03/27/20 at 16:31; Status DC Amiodarone HCl 450 mg/Dextrose 259 ml @ 16.7 mls/hr CONT PRN IV SEE I/O RECORD Last administered on 03/27/20at 18:15; Start 03/27/20 at 03:00; Stop 03/27/20 at 18:16; Status DC Lidocaine HCl (Lidocaine 1% 20ml Vial) 20 ml STK-MED ONCE .ROUTE ; Start 03/27/20 at 09:23; Stop 03/27/20 at 09:23; Status DC Heparin Sodium/ Sodium Chloride 1,000 ml @ As Directed STK-MED ONCE .ROUTE ; Start 03/27/20 at 09:23; Stop 03/27/20 at 09:24; Status DC Iodixanol (Visipaque 320) 100 ml STK-MED ONCE .ROUTE ; Start 03/27/20 at 09:23; Stop 03/27/20 at 09:24; Status DC Heparin Sodium/ Sodium Chloride (HEPARIN for ARTERIAL LINE FLUSH) 1,000 unit 1X ONCE IART Last administered on 03/27/20at 10:00; Start 03/27/20 at 10:00; Stop 03/27/20 at 10:01; Status DC Heparin Sodium/ Sodium Chloride (HEPARIN for ARTERIAL LINE FLUSH) 1,000 unit 1X ONCE IART Last administered on 03/27/20at 10:00; Start 03/27/20 at 10:00; Stop 03/27/20 at 10:01; Status DC Iodixanol (Visipaque 320) 100 ml 1X ONCE IART Last administered on 03/27/20at 11:05; Start 03/27/20 at 10:00; Stop 03/27/20 at 10:01; Status DC Lidocaine HCl (Lidocaine 1% 20ml Vial) 20 ml 1X ONCE INJ Last administered on 03/27/20at 10:41; Start 03/27/20 at 10:00; Stop 03/27/20 at 10:01; Status DC Info (CONTRAST GIVEN -- Rx MONITORING) 1 each PRN DAILY PRN MC SEE COMMENTS; Start 03/27/20 at 10:00; Stop 03/29/20 at 09:59; Status DC Milrinone Lactate/ Dextrose 100 ml @ 10.103 mls/ hr CONT PRN IV SEE I/O RECORD Last administered on 03/30/20at 09:19; Start 03/27/20 at 11:30; Stop 03/30/20 at 15:28; Status DC Epinephrine HCl (EPINEPHrine SYRINGE) 1 mg STK-MED ONCE .ROUTE ; Start 03/26/20 at 21:00; Stop 03/27/20 at 19:23; Status DC Sodium Bicarbonate (Sodium Bicarb Adult 8.4% Syr) 50 meq STK-MED ONCE .ROUTE ; Start 03/26/20 at 21:00; Stop 03/27/20 at 19:23; Status DC Potassium Chloride/Water 100 ml @ 100 mls/hr Q1H IV Last administered on 03/28/20at 08:18; Start 03/28/20 at 06:00; Stop 03/28/20 at 07:59; Status DC Amiodarone HCl (Cordarone) 200 mg BID PO Last administered on 03/29/20at 07:46; Start 03/28/20 at 21:00; Stop 03/29/20 at 10:29; Status DC Lidocaine HCl (Lidocaine HCl 2% Abboject) 80 mg 1X ONCE IV Last administered on 03/28/20at 19:55; Start 03/28/20 at 20:15; Stop 03/28/20 at 20:16; Status DC Amiodarone HCl (Cordarone) 200 mg 1X ONCE PO Last administered on 03/29/20at 13:55; Start 03/29/20 at 13:45; Stop 03/29/20 at 13:50; Status DC Amiodarone HCl (Cordarone) 400 mg DAILY PO Last administered on 04/03/20at 08:15; Start 03/30/20 at 09:00 Magnesium Sulfate 50 ml @ 25 mls/hr 1X ONCE IV Last administered on 03/30/20at 09:55; Start 03/30/20 at 09:45; Stop 03/30/20 at 11:44; Status DC Potassium Bicarbonate (Potassium Effervescent Tablet) 40 meq 1X ONCE PEG Last administered on 03/30/20at 09:54; Start 03/30/20 at 09:45; Stop 03/30/20 at 09:53; Status DC Potassium Bicarbonate (Potassium Effervescent Tablet) 40 meq 1X ONCE PO Last administered on 03/30/20at 13:40; Start 03/30/20 at 14:15; Stop 03/30/20 at 14:16; Status DC Epinephrine HCl (EPINEPHrine SYRINGE) 1 mg STK-MED ONCE .ROUTE ; Start 03/29/20 at 12:00; Stop 03/30/20 at 13:02; Status DC Lidocaine HCl (Lidocaine HCl 2% Abboject) 100 mg STK-MED ONCE .ROUTE ; Start 03/29/20 at 12:00; Stop 03/30/20 at 13:02; Status DC Milrinone Lactate/ Dextrose 100 ml @ 6.735 mls/ hr CONT PRN IV SEE I/O RECORD Last administered on 04/01/20at 20:33; Start 03/30/20 at 15:30 Magnesium Sulfate 50 ml @ 25 mls/hr 1X ONCE IV Last administered on 03/31/20at 08:38; Start 03/31/20 at 08:30; Stop 03/31/20 at 10:29; Status DC Potassium Bicarbonate (Potassium Effervescent Tablet) 40 meq 1X ONCE PEG Last administered on 03/31/20at 08:37; Start 03/31/20 at 08:00; Stop 03/31/20 at 08:01; Status DC Potassium Bicarbonate (Potassium Effervescent Tablet) 40 meq 1X ONCE PEG Last administered on 03/31/20at 12:31; Start 03/31/20 at 12:00; Stop 03/31/20 at 12:01; Status DC Potassium Bicarbonate (Potassium Effervescent Tablet) 80 meq 1X ONCE PO Last administered on 04/01/20at 10:05; Start 04/01/20 at 09:45; Stop 04/01/20 at 09:46; Status DC Potassium Bicarbonate (Potassium Effervescent Tablet) 20 meq 1X ONCE PEG Last administered on 04/01/20at 16:25; Start 04/01/20 at 16:15; Stop 04/01/20 at 16:16; Status DC Potassium Chloride/Water 100 ml @ 100 mls/hr Q1H IV Last administered on 04/02/20at 09:24; Start 04/02/20 at 07:30; Stop 04/02/20 at 09:29; Status DC Magnesium Sulfate 50 ml @ 25 mls/hr 1X ONCE IV Last administered on 04/02/20at 07:52; Start 04/02/20 at 07:30; Stop 04/02/20 at 09:29; Status DC Potassium Bicarbonate (Potassium Effervescent Tablet) 40 meq 1X ONCE PEG Last administered on 04/02/20at 09:34; Start 04/02/20 at 09:30; Stop 04/02/20 at 09:31; Status DC Enoxaparin Sodium (Lovenox 40mg Syringe) 40 mg Q24H SQ Last administered on 04/03/20at 12:16; Start 04/02/20 at 12:00 Magnesium Sulfate 50 ml @ 25 mls/hr 1X ONCE IV Last administered on 04/02/20at 11:47; Start 04/02/20 at 12:00; Stop 04/02/20 at 13:59; Status DC Nicardipine HCl 50 mg/Sodium Chloride 250 ml @ 25 mls/hr CONT PRN IV SEE I/O RECORD Last administered on 04/03/20at 21:26; Start 04/02/20 at 12:00 Sodium Chloride 1,000 ml @ 55 mls/hr [id number] IV Last administered on 04/04/20at 10:42; Start 04/03/20 at 12:00 Potassium Chloride/Water 100 ml @ 100 mls/hr Q1H IV Last administered on 04/03/20at 20:15; Start 04/03/20 at 17:30; Stop 04/03/20 at 21:29; Status DC Info (Tpn Per Pharmacy) 1 each PRN DAILY PRN MC SEE COMMENTS; Start 04/04/20 at 11:00 Amino Acids/ Glycerin/ Electrolytes 1,000 ml @ 80 mls/hr [id number] IV ; Start 04/04/20 at 11:30; Stop 04/04/20 at 21:59 Active Scripts Active Furosemide 40 Mg Tablet 40 Mg PO DAILY 90 Days Tramadol Hcl 50 Mg Tablet 50 Mg PO PRN Q6HRS PRN 6 Days Metoprolol Succinate ( Xl ) (Metoprolol Succinate) 25 Mg Tab.er.24h 12.5 Mg PO DAILY 90 Days Clopidogrel (Clopidogrel Bisulfate) 75 Mg Tablet 75 Mg PO [id number] 90 Days Lisinopril 10 Mg Tablet 1 Tab PO DAILY 90 Days Atorvastatin Calcium 80 Mg Tablet 80 Mg PO QHS 90 Days Reported Klor-Con M20 (Potassium Chloride) 20 Meq Tab.er.prt 20 Meq PO TID Pantoprazole Sodium (Pantoprazole Sodium) 40 Mg Tablet.dr 40 Mg PO BID Duoneb 0.5-3(2.5) Mg/3 Ml (Albuterol/Ipratropium) 3 Ml Ampul.neb 3 Ml NEB PRN Q6HRS PRN Acetaminophen 325 Mg Tablet 1 Tab PO PRN Q6HRS PRN 24 Days Triumeq Tablet (Abacavir/Dolutegravir/Lamivudi) 1 Each Tablet 1 Tab PO DAILY 30 Days Gabapentin (Gabapentin) 300 Mg Capsule 100 Mg PO TID Children's Aspirin (Aspirin) 81 Mg Tab.chew 1 Tab PO DAILY 30 Days Vitals/I & O Vital Sign - Last 24 Hours 04/03/20 04/03/20 04/03/20 04/03/20 11:00 11:15 11:30 11:45 Pulse 82 83 98 79 Resp 29 B/P (MAP) 193/125 (147) 187/85 (119) 151/81 (104) 141/78 (99) Pulse Ox 100 O2 Delivery Ventilator 04/03/20 04/03/20 04/03/20 04/03/20 12:00 12:00 12:15 12:30 Temp 99.3 99.3 Pulse 92 95 88 Resp 28 B/P (MAP) 166/90 (115) 160/82 (108) 150/77 (101) Pulse Ox 99 O2 Delivery Venturi Mask Venturi Mask 04/03/20 04/03/20 04/03/20 04/03/20 12:45 13:00 13:30 14:00 Pulse 96 84 86 90 Resp 28 26 B/P (MAP) 148/88 (108) 116/76 (89) 137/80 (99) 125/76 (92) Pulse Ox 98 100 O2 Delivery Venturi Mask Venturi Mask 04/03/20 04/03/20 04/03/20 04/03/20 15:00 16:00 16:00 17:00 Temp 100.1 100.1 Pulse 94 91 58 Resp 22 16 16 B/P (MAP) 131/70 (90) 112/67 (82) 159/96 (117) Pulse Ox 100 100 98 O2 Delivery Venturi Mask Venturi Mask Venturi Mask Nasal Cannula O2 Flow Rate 4.0 04/03/20 04/03/20 04/03/20 04/03/20 18:00 19:00 20:00 20:00 Temp 99.6 99.6 Pulse 90 97 95 Resp 14 14 14 B/P (MAP) 122/73 (89) 132/82 (99) 127/76 (93) Pulse Ox 100 100 100 O2 Delivery Nasal Cannula Nasal Cannula Nasal Cannula Nasal Cannula O2 Flow Rate 4.0 4.0 4.0 4.0 04/03/20 04/03/20 04/03/20 04/03/20 21:00 21:02 21:32 22:00 Pulse 95 92 Resp 14 33 20 14 B/P (MAP) 129/77 (94) 138/80 (99) Pulse Ox 100 99 97 100 O2 Delivery Nasal Cannula Nasal Cannula Nasal Cannula Nasal Cannula O2 Flow Rate 4.0 4.0 4.0 4.0 04/03/20 04/03/20 04/04/20 04/04/20 23:00 23:53 00:00 01:00 Temp 99.1 99.1 Pulse 93 91 86 Resp 14 14 14 B/P (MAP) 142/79 (100) 141/77 (98) 134/75 (94) Pulse Ox 100 100 100 O2 Delivery Nasal Cannula Nasal Cannula Nasal Cannula Nasal Cannula O2 Flow Rate 4.0 4.0 4.0 4.0 04/04/20 04/04/20 04/04/20 04/04/20 02:00 02:45 03:00 03:15 Pulse 92 101 Resp 14 36 14 22 B/P (MAP) 136/75 (95) 136/75 (95) Pulse Ox 99 100 98 O2 Delivery Nasal Cannula Nasal Cannula Nasal Cannula Nasal Cannula O2 Flow Rate 4.0 4.0 4.0 3.0 04/04/20 04/04/20 04/04/20 04/04/20 03:47 04:00 05:00 06:00 Temp 99.0 99.0 Pulse 92 93 92 Resp 14 14 14 B/P (MAP) 126/74 (91) 135/79 (97) 134/79 (97) Pulse Ox 100 100 100 O2 Delivery Nasal Cannula Nasal Cannula Nasal Cannula Nasal Cannula O2 Flow Rate 4.0 4.0 4.0 3.0 04/04/20 04/04/20 04/04/20 04/04/20 07:00 08:00 08:00 09:00 Temp 99.1 99.1 Pulse 94 96 98 Resp 12 16 16 B/P (MAP) 146/73 (97) 146/90 (108) 137/80 (99) Pulse Ox 100 100 100 O2 Delivery Nasal Cannula Nasal Cannula Nasal Cannula Nasal Cannula O2 Flow Rate 3.0 2.0 2.0 2.0 04/04/20 10:00 Pulse 86 Resp 16 B/P (MAP) 141/81 (101) Pulse Ox 99 O2 Delivery Nasal Cannula O2 Flow Rate 2.0 Intake and Output 04/03/20 04/03/20 04/04/20 15:00 23:00 07:00 Intake Total 150 ml 1077.95 ml 177 ml Output Total 4520 ml 1375 ml 1500 ml Balance -4370 ml -297.05 ml -1323 ml Justicifation of Admission Dx: Justifications for Admission: Justification of Admission Dx: Yes ERIN MAYEN MD Apr 04, 2020 10:58
--- NOTE | 2020-04-04 11:16 | PDOC ---
PULMONARY PROGRESS NOTES DATE: 04/04/20 TIME: 11:13 Subjective extubated 03/26, re-intubated for 03/26--V-Tac Arrest S/P cardiac cath 03/27/20-- clean Now extubated again on 04/03/20-- now on 2 liters N/C Vitals Vital Signs Date Time Temp Pulse Resp B/P (MAP) Pulse Ox O2 Delivery O2 Flow Rate FiO2 04/04/20 11:00 97 16 144/76 (98) 100 Nasal Cannula 2.0 04/04/20 08:00 99.1 99.1 ROS: No Nausea, No Chest Pain, No Abdominal Pain, No Increase Cough Lungs: Clear Cardiovascular: S1, S2 Abdomen: Soft, Non-tender Neuro Exam: Alert, Oriented Extremities: No Edema Skin: Warm, Dry Labs Laboratory Tests Test 04/02/20 13:56 04/03/20 04:58 04/03/20 07:30 04/03/20 11:40 Potassium Level 4.4 mmol/L (3.5-5.1) 3.8 mmol/L (3.5-5.1) Sodium Level 145 mmol/L (136-145) Chloride Level 109 mmol/L (98-107) Carbon Dioxide Level 24 mmol/L (21-32) Anion Gap 12 (6-14) Blood Urea Nitrogen 5 mg/dL (8-26) Creatinine 1.0 mg/dL (0.7-1.3) Estimated GFR (Cockcroft-Gault) 94.9 Glucose Level 114 mg/dL (70-99) Calcium Level 8.6 mg/dL (8.5-10.1) Magnesium Level 2.4 mg/dL (1.8-2.4) O2 Saturation 98 % (92-99) 94 % (92-99) Arterial Blood pH 7.46 (7.35-7.45) 7.40 (7.35-7.45) Arterial Blood pCO2 at Patient Temp 32 mmHg (35-46) 36 mmHg (35-46) Arterial Blood pO2 at Patient Temp 117 mmHg (75-108) 75 mmHg (75-108) Arterial Blood HCO3 22 mmol/L (21-28) 22 mmol/L (21-28) Arterial Blood Base Excess -1 mmol/L (-3-3) -3 mmol/L (-3-3) FiO2 40 40% 12/5 Test 04/03/20 21:00 Potassium Level 4.6 mmol/L (3.5-5.1) Magnesium Level 2.1 mg/dL (1.8-2.4) Laboratory Tests Test 04/03/20 11:40 04/03/20 21:00 O2 Saturation 94 % (92-99) Arterial Blood pH 7.40 (7.35-7.45) Arterial Blood pCO2 at Patient Temp 36 mmHg (35-46) Arterial Blood pO2 at Patient Temp 75 mmHg (75-108) Arterial Blood HCO3 22 mmol/L (21-28) Arterial Blood Base Excess -3 mmol/L (-3-3) FiO2 40% 02/24 Potassium Level 4.6 mmol/L (3.5-5.1) Magnesium Level 2.1 mg/dL (1.8-2.4) Medications Active Scripts Medications Dose Route/Sig Max Daily Dose Days Date Category Furosemide 40 Mg Tablet 40 Mg PO DAILY 02/02/20 Rx Tramadol Hcl 50 Mg Tablet 50 Mg PO PRN Q6HRS PRN 6 02/02/20 Rx Metoprolol Succinate ( Xl ) (Metoprolol Succinate) 25 Mg Tab.er.24h 12.5 Mg PO DAILY 02/02/20 Rx Clopidogrel (Clopidogrel Bisulfate) 75 Mg Tablet 75 Mg PO DAILYWBKFT 02/02/20 Rx Lisinopril 10 Mg Tablet 1 Tab PO DAILY 02/02/20 Rx Atorvastatin Calcium 80 Mg Tablet 80 Mg PO QHS 02/02/20 Rx Klor-Con M20 (Potassium Chloride) 20 Meq Tab.er.prt 20 Meq PO TID 01/31/20 Reported Pantoprazole Sodium (Pantoprazole Sodium) 40 Mg Tablet.dr 40 Mg PO BID 01/31/20 Reported Duoneb 0.5-3(2.5) Mg/3 Ml (Albuterol/Ipratropium) 3 Ml Ampul.neb 3 Ml NEB PRN Q6HRS PRN 01/31/20 Reported Acetaminophen 325 Mg Tablet 1 Tab PO PRN Q6HRS PRN 24 01/31/20 Reported Triumeq Tablet (Abacavir/Dolutegravir/Lamivudi) 1 Each Tablet 1 Tab PO DAILY 30 01/31/20 Reported Gabapentin (Gabapentin) 300 Mg Capsule 100 Mg PO TID 01/31/20 Reported Children's Aspirin (Aspirin) 81 Mg Tab.chew 1 Tab PO DAILY 30 01/31/20 Reported Comments CXR IMPRESSION: 1. Stable life support devices. 2. Progression of left basilar opacities. 3. Increased small left pleural effusion. Impression . IMPRESSION: 1. Acute hypoxemic respiratory failure secondary to [id number]-[id number] cardiopulmonary arrest. extubated 03/26, re-intubated for V-Tac Arrest 2. History of ventricular fibrillation with previous [id number]-xxrlynpo cardiac arrest. 3. History of coronary artery disease, status post percutaneous coronary intervention to the circumflex. 4. History of gastrointestinal bleed. 5. Chronic systolic heart failure. 6. Ischemic cardiomyopathy, ejection fraction 15%. 7. Status post pacemaker implantation. 8. Hypertension. 9. Hypokalemia. 10. Previous kidney injury requiring hemodialysis. 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 12. Human immunodeficiency virus. 13. Polysubstance use. Plan . Continue supplemental oxygen to keep Oxygen sats above 92% Lasix prn w/ KCL replacement Follow Cardiology recs ---S/P cath 03/27/20 was clear--Life vest-- per cardiology Follow GI recs PT/OT//ST-- failed swallow will need NG or TPN DVT/GI prophylaxis Discussed with RN and RT/ family Pt. is FULL CODE NERISSA AGUILAR MD Apr 04, 2020 11:16
[2020-04-04] MEDS ORDERED: AMINO AC 3%/ELECTROLYTE/GLYCER 1,000 ML IV SCH (11:30)
--- NOTE | 2020-04-04 11:46 | PDOC ---
GREGORY REYNA LOCOMOTIVE OILER 04/04/20 1146: CARDIO Progress Notes Date and Time Date of Service 04/04/20 Time of Evaluation 1140 Subjective Subjective: No Chest Pain, No shortness of breath, No Palpitations, Other (extubated ) Vitals Vitals Vital Signs Date Time Temp Pulse Resp B/P (MAP) Pulse Ox O2 Delivery O2 Flow Rate FiO2 04/04/20 11:00 97 16 144/76 (98) 100 Nasal Cannula 2.0 04/04/20 08:00 99.1 99.1 Weight Weight [ ] Input and Output Intake and Output Intake and Output 04/04/20 07:00 Intake Total 1404.95 ml Output Total 7395 ml Balance -5990.05 ml IV Total 1304.95 ml Tube Feeding 100 ml Output Urine Total 7395 ml # Bowel Movements 2 Laboratory Labs Laboratory Tests Test 04/03/20 21:00 Potassium Level 4.6 mmol/L (3.5-5.1) Magnesium Level 2.1 mg/dL (1.8-2.4) Microbiology Micro Microbiology 03/26/20 Urine Culture - Final, Complete 03/21/20 Gram Stain Evaluation - Final, Complete 03/21/20 Respiratory Culture - Final, Complete 03/20/20 Blood Culture - Final, Complete NO GROWTH AFTER 5 DAYS Physical Exam HEENT: Neck Supple W Full Motion Chest: Symmetric LUNGS: Other (diminished bases) Heart: RRR (SR/ST with frequent PVCs) Abdomen: Soft N/T Extremities: No Edema Neurology: alert, follow commands, other (oriented to person and place ) Assessment Assessment 1. OOH, witness cardiac arrest; recurrent [place]ors[place], [place] arrest 07/21/20. On Amiodarone gtt. [facility] with patent LCx stent. No lesions needing intervention. 3. Acute respiratory failure secondary to above; extubated, but reintubated following cardiac arrest due to sustained Torsades, [place] 07/21/20. 4. H/o Vfib OOH arrest; probable ischemic in nature, antiarrhythmics discontinued in past due to QTc prolongation. 5. Acute on chronic systolic CHF 6. ICM; LVEF 20-25%. on milrinone 7. CAD s/p PCI/BMS to the LCx 12/11/19. 8. SSS s/p leadless PPM implantation ([employer] Micra). Device check with normal function 04/02/20. 9. Leukocytosis, fevers. ? sepsis. off pressor support 10. Hypertension; labile this am 11. H/o DAIJA requiringHD; renal function improvedand HD catheter removed 12. 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 HIV 14. Substance abuse; UDS + cocaine at [facility] 15. Noncompliance 16. Tobaccoism 17. Hypokalemia, hypomagnesemia Recommendations Cardene gtt for BP control Continue Amiodarone for rhythm maintenance when able to take Can resume low-dose IV amio if prolonged NPO Replace K; Keep K > 4.0 and Mg > 2.0 Ongoing diuresis Secondary prevention measures as able. Will plan for LifeVest upon discharge with consideration of AICD if patient establishes compliance and refrains from drug abuse Justicifation of Admission Dx: Justifications for Admission: Justification of Admission Dx: Yes SHYAM AJ MD 04/05/20 0730: CARDIO Progress Notes Plan Plan Late entry for 04/04/20 Pt. seen and examined. Agree with above DONATION SPECIALIST note. Will start GDMT for HF on 04/05 as BP is stable if able to pass swallow eval. Continue diuresis. Monitor electrolytes closely. Supportive care. GREGORY REYNA APRN Apr 04, 2020 11:46 SHYAM AJ MD Apr 05, 2020 07:30
[2020-04-04] MEDS: ENOXAPARIN 40 MG/0.4 ML SYRINGE. SQ SCH (12:15)
[2020-04-04 12:17] LABS: CALCIUM 9.3 mg/dL (8.5-10.1); CREATININE 0.9 mg/dL (0.7-1.3); GFR 107.2; POTASSIUM 3.6 mmol/L (3.5-5.1)
[2020-04-04 12:20] LABS: PHOSPHORUS 3.1 mg/dL (2.6-4.7)
[2020-04-04] MEDS: POTASSIUM CHLORIDE 20MEQ 100 ML IV SCH ×4 (12:51→16:21)
[2020-04-04] MEDS: TPN PER PHARMACY MC PRN (13:20)
--- NOTE | 2020-04-04 13:21 | NUR ---
Pharmacy TPN Dosing Note S: DENIA RODRIGUES is a 54 year old M Currently receiving Central Continuous TPN started 04/04/20 B:Pertinent PMH: Prolonged NPO, failed swallow study Height: 5 feet, 9 inches Weight: 95.120848 kg Current diet: npo LABS: Sodium: 143 Potassium: 3.6 Chloride: 104 Calcium: 9.3 Corrected Calcium: 10.82 Magnesium: 2.0 CO2: 24 SCr: 0.9 Glucose: 118 Albumin: 2.1 AST: 14 ALT: 10 TPN FORMULA: TPN TYPE: Central Continuous AMINO ACIDS: 60 gm DEXTROSE: 195 gm LIPIDS: 20 gm SODIUM CHLORIDE: 90 mEq SODIUM ACETATE: mEq SODIUM PHOSPHATE: mmol POTASSIUM CHLORIDE: 50 mEq POTASSIUM ACETATE: mEq POTASSIUM PHOSPHATE: 13.6 mmol MAGNESIUM: 15 mEq CALCIUM: 10 mEq INSULIN: units MULTIPLE VITAMIN: 5 ml TRACE ELEMENTS: 1 ml(s) TPN PLAN: TPN to start today, failed swallow study Goals per cardiology: K>4.0 and Mag>2.0 Standard formula with the exception of mag Will start w/ 15meq, mag 2.0 and did not receive bolus today K 3.6, received 80meq replacement, will leave KCl at 50meq in TPN for now Labs in the am R: Begin TPN as written above. Will monitor electrolytes, glucose, and tolerance to TPN. GREGORY CARIAS [facility], 04/04/20 2951
--- NOTE | 2020-04-04 14:37 | NUR ---
SS following up with discharge planning. Order for life vest received. SS phoned and faxed referral and order to [facility], ; fax [phone]. SS received notification from Herrera Mirza at [facility] stating that order and referral have been received.
[2020-04-04] MEDS: ATORVASTATIN CALCIUM 40 MG TABLET. PO SCH (20:26)
[2020-04-04] MEDS ORDERED: TOTAL PARENTERAL NUTRITION IV SCH (22:00)
[2020-04-04] MEDS ORDERED: AMINO ACID IV SCH (22:00)
[2020-04-04] MEDS ORDERED: DEXTROSE 70% IV SCH (22:00)
[2020-04-04] MEDS ORDERED: [UNRECOGNIZED DRUG - OTHER] IV SCH (22:00)
[2020-04-05] VITALS (16 sets, daily range): BP systolic 119–166; BP diastolic 77–100
[2020-04-05] MEDS: IV NORMAL SALINE 1000ML BAG 1,000 ML IV SCH ×2 (00:22→18:33)
[2020-04-05 06:49] LABS: CALCIUM 9.6 mg/dL (8.5-10.1); CREATININE 0.8 mg/dL (0.7-1.3); GFR 122.8; MAGNESIUM 2.1 mg/dL (1.8-2.4); PHOSPHORUS 2.3 mg/dL (2.6-4.7); POTASSIUM 3.5 mmol/L (3.5-5.1)
--- NOTE | 2020-04-05 07:53 | PDOC ---
Infectious Disease Note Subjective: Subjective Patient on 2 L O2 by nasal cannula Refused NG tube placement as he failed swallow eval Denies fever, nausea, vomiting, diarrhea, abdominal pain, shortness of breath, cough or chest pain Vital Signs: Vital Signs Vital Signs Date Time Temp Pulse Resp B/P (MAP) Pulse Ox O2 Delivery O2 Flow Rate FiO2 04/05/20 07:00 102 24 142/77 (98) 97 Nasal Cannula 2.0 04/05/20 03:00 98.9 98.9 Physical Exam: PHYSICAL EXAM GENERAL: alert awake male on nasal O2 HEENT: Normocephalic atraumatic pupils equal, reactive. NECK: Supple. LUNGS: Clear anteriorly. HEART: S1, S2, tachycardia. ABDOMEN: Obese, mildly distended. Bowel sounds present. EXTREMITIES: No edema or cyanosis. Superficial thrombophlebitis right upper extremity DERMATOLOGIC: Warm and dry. No generalized rash. NEUROLOGIC alert oriented x3 grossly nonfocal Medications: Inpatient Meds: Current Medications Medications (Trade) Dose Ordered Sig/Guy Start Time Stop Time Status Last Admin Dose Admin Acetaminophen (Tylenol) 650 mg PRN Q6HRS PRN 03/20/20 09:00 03/27/20 20:51 650 MG Amino Acids/ Glycerin/ Electrolytes 1,000 ml @ 80 mls/hr [id number] 04/04/20 11:30 04/04/20 21:59 DC 04/04/20 11:00 80 MLS/HR Amiodarone HCl (Cordarone) 400 mg DAILY 03/30/20 09:00 04/03/20 08:15 400 MG Amiodarone HCl 150 mg/Dextrose 103 ml @ 618 mls/hr 1X ONCE 03/26/20 19:45 03/26/20 19:54 DC 03/26/20 19:44 618 MLS/HR Amiodarone HCl 450 mg/Dextrose 259 ml @ 16.7 mls/hr CONT PRN 03/27/20 03:00 03/27/20 18:16 DC 03/27/20 18:15 16.7 MLS/HR Atorvastatin Calcium (Lipitor) 80 mg QHS 03/20/20 21:00 04/02/20 20:32 80 MG Atropine Sulfate (ATROPINE 0.5mg SYRINGE) 0.5 mg PRN Q5MIN PRN 03/27/20 01:45 03/27/20 16:31 DC Chlorhexidine Gluconate (Peridex) 15 ml BID 03/26/20 21:00 03/28/20 11:44 DC 03/27/20 20:51 15 ML Clopidogrel Bisulfate (Plavix) 75 mg DAILYWBKFT 03/20/20 12:00 04/03/20 08:16 75 MG Dexmedetomidine HCl 400 mcg/ Sodium Chloride 100 ml @ 0 mls/hr CONT PRN 03/27/20 01:45 04/03/20 01:36 9 MLS/HR Docusate Sodium (Colace Solution) 100 mg BID 03/20/20 09:00 03/26/20 15:28 DC 03/26/20 08:35 100 MG Dopamine HCl/ Dextrose 250 ml @ 17.681 mls/ hr CONT PRN 03/20/20 04:30 Enoxaparin Sodium (Lovenox 40mg Syringe) 40 mg Q24H 04/02/20 12:00 04/04/20 12:15 40 MG Epinephrine HCl (EPINEPHrine SYRINGE) 1 mg STK-MED ONCE 03/29/20 12:00 03/30/20 13:02 DC Etomidate (Amidate) 20 mg STK-MED ONCE 03/26/20 23:34 03/26/20 23:35 DC Famotidine (Pepcid Vial) 20 mg BID 03/20/20 11:00 03/20/20 12:35 DC Fentanyl Citrate 30 ml @ 0 mls/hr CONT PRN 03/26/20 19:15 UNV Fentanyl Citrate (Fentanyl 2ml Vial) 50 mcg PRN Q1HR PRN 03/26/20 19:15 04/04/20 02:45 50 MCG Furosemide (Lasix) 40 mg DAILY 03/22/20 11:00 04/04/20 08:25 40 MG Haloperidol Lactate (Haldol Inj) 5 mg PRN Q6HRS PRN 03/23/20 21:00 03/24/20 08:52 DC Heparin Sodium (Porcine) (Heparin Sodium) 2,400 unit PRN Q6HRS PRN 03/20/20 04:30 03/22/20 10:15 DC 03/21/20 14:17 2,400 UNIT Heparin Sodium/ Dextrose 250 ml @ 0 mls/hr CONT PRN 03/20/20 04:30 03/22/20 10:15 DC 03/21/20 22:15 19.8 MLS/HR Heparin Sodium/ Sodium Chloride (HEPARIN for ARTERIAL LINE FLUSH) 1,000 unit 1X ONCE 03/27/20 10:00 03/27/20 10:01 DC 03/27/20 10:00 1,000 UNIT Info (CONTRAST GIVEN -- Rx MONITORING) 1 each PRN DAILY PRN 03/27/20 10:00 03/29/20 09:59 DC Info (Icu Electrolyte Protocol) 1 ea DAILY 03/21/20 09:00 04/02/20 07:54 1 EA Info (Tpn Per Pharmacy) 1 each PRN DAILY PRN 04/04/20 11:00 04/04/20 13:20 1 EACH Iodixanol (Visipaque 320) 100 ml 1X ONCE 03/27/20 10:00 03/27/20 10:01 DC 03/27/20 11:05 107 ML Labetalol HCl (Normodyne Iv Push) 10 mg PRN Q2HR PRN 03/26/20 19:15 Lidocaine HCl (Lidocaine 1% 20ml Vial) 20 ml 1X ONCE 03/27/20 10:00 03/27/20 10:01 DC 03/27/20 10:41 13 ML Lidocaine HCl (Lidocaine HCl 2% Abboject) 100 mg STK-MED ONCE 03/29/20 12:00 03/30/20 13:02 DC Linezolid/Dextrose 300 ml @ 300 mls/hr Q12HR 03/21/20 09:00 03/28/20 08:39 DC 03/28/20 08:19 300 MLS/HR Lorazepam (Ativan Inj) 1 mg PRN Q1HR PRN 03/20/20 04:45 03/26/20 15:29 DC 03/26/20 14:30 1 MG Magnesium Sulfate 50 ml @ 25 mls/hr 1X ONCE 04/02/20 12:00 04/02/20 13:59 DC 04/02/20 11:47 25 MLS/HR Midazolam HCl 100 ml @ 0 mls/hr CONT PRN 03/26/20 19:15 04/01/20 12:21 5 MLS/HR Milrinone Lactate/ Dextrose 100 ml @ 6.735 mls/ hr CONT PRN 03/30/20 15:30 04/01/20 20:33 6.735 MLS/HR Morphine Sulfate (Morphine Sulfate) 4 mg PRN Q1HR PRN 03/26/20 19:15 03/28/20 22:35 DC Nicardipine HCl 50 mg/Sodium Chloride 250 ml @ 25 mls/hr CONT PRN 04/02/20 12:00 04/04/20 17:16 12.5 MLS/HR Non-Formulary Medication (ABACAVIR/ DOLUTEGRAVIR/ LAMIVUDINE (Triumeq) tablet) 1 ea DAILY 03/20/20 17:00 04/03/20 08:16 1 EA Norepinephrine Bitartrate 8 mg/ Dextrose 258 ml @ 18.247 mls/ hr CONT PRN 03/20/20 04:15 03/28/20 19:12 18.247 MLS/HR Olanzapine (ZyPREXA ZYDIS) 5 mg PRN Q4HRS PRN 03/26/20 19:15 Ondansetron HCl (Zofran) 4 mg PRN Q6HRS PRN 03/20/20 10:30 04/04/20 05:24 4 MG Pantoprazole Sodium (PROTONIX VIAL for IV PUSH) 40 mg DAILYAC 03/20/20 12:30 04/04/20 08:24 40 MG Piperacillin Sod/ Tazobactam Sod (Zosyn Per Pharmacy) 1 each PRN DAILY PRN 03/20/20 09:30 04/04/20 10:19 DC Piperacillin Sod/ Tazobactam Sod 3.375 gm/Sodium Chloride 50 ml @ 100 mls/hr Q6HRS 03/20/20 10:00 04/04/20 08:17 DC 04/04/20 06:03 100 MLS/HR Potassium Bicarbonate (Potassium Effervescent Tablet) 40 meq 1X ONCE 04/02/20 09:30 04/02/20 09:31 DC 04/02/20 09:34 40 MEQ Potassium Chloride/Water 100 ml @ 100 mls/hr Q1H 04/04/20 13:00 04/04/20 16:59 DC 04/04/20 16:21 100 MLS/HR Propofol 100 ml @ 0 mls/hr CONT PRN 03/26/20 19:15 04/03/20 05:44 18.7 MLS/HR Sodium Bicarbonate (Sodium Bicarb Adult 8.4% Syr) 50 meq STK-MED ONCE 03/26/20 21:00 03/27/20 19:23 DC Sodium Chloride (Normal Saline Flush) 3 ml QSHIFT PRN 03/20/20 10:30 Sodium Chloride 90 meq/Potassium Chloride 50 meq/ Potassium Phosphate 13.6 mmol/Magnesium Sulfate 15 meq/ Calcium Gluconate 10 meq/ Multivitamins 5 ml/Zinc/Copper/ Manganese/ Selenium 1 ml/ Total Parenteral Nutrition/Amino Acids/Dextrose/ Fat Emulsion Intravenous 1,512 ml @ 63 mls/hr TPN CONT 04/04/20 22:00 04/05/20 21:59 04/04/20 20:50 63 MLS/HR Succinylcholine Chloride (Anectine) 200 mg STK-MED ONCE 03/26/20 23:34 03/26/20 23:35 DC Vancomycin HCl (Vancomycin Oral Solution) 125 mg BID 03/20/20 21:30 04/04/20 08:17 DC 04/03/20 08:17 125 MG Labs: Lab Laboratory Tests Test 04/04/20 11:40 04/05/20 06:00 Sodium Level 143 mmol/L (136-145) 143 mmol/L (136-145) Potassium Level 3.6 mmol/L (3.5-5.1) 3.5 mmol/L (3.5-5.1) Chloride Level 104 mmol/L (98-107) 105 mmol/L (98-107) Carbon Dioxide Level 24 mmol/L (21-32) 25 mmol/L (21-32) Anion Gap 15 (6-14) 13 (6-14) Blood Urea Nitrogen 4 mg/dL (8-26) 5 mg/dL (8-26) Creatinine 0.9 mg/dL (0.7-1.3) 0.8 mg/dL (0.7-1.3) Estimated GFR (Cockcroft-Gault) 107.2 122.8 Glucose Level 118 mg/dL (70-99) 144 mg/dL (70-99) Calcium Level 9.3 mg/dL (8.5-10.1) 9.6 mg/dL (8.5-10.1) Phosphorus Level 3.1 mg/dL (2.6-4.7) 2.3 mg/dL (2.6-4.7) Magnesium Level 2.0 mg/dL (1.8-2.4) 2.1 mg/dL (1.8-2.4) Triglycerides Level 94 mg/dL (0-150) Objective: Assessment: 1. Fever, likely aspiration. Resolved 2. Witnessed cardiac arrest, status post defibrillation. 3. Leukocytosis and lactic acidosis. 4. Human immunodeficiency virus, CD4 496 March 2019 was 403 on 01/16 viral load less than 20 on 01/23,on Triumeq. 5. Acute hypoxic respiratory failure Extubated, reintubated Mar 26 6. History of ventricular tachycardia, Coronary artery disease, status post PCI. 7. Status post pacemaker for bradycardia 12/27 at [place]. 8. History of acute kidney injury, on hemodialysis in the past. 9. 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 10. Substance dependence. UDS positive for cocaine at outside hospital. 11. Hypertension/hyperlipidemia 12. Hypokalemia/hypomagnesemia. 13. H/O Chronic systolic congestive heart failure. 14. History of rectal abscess. 15. History of Necrotizing Pneumonia with Klebsiella at [facility] November 2019 16. V. fib arrest, torsades here on Mar 26 19. Severe cardiomyopathy 20. Anemia of chronic disease 21. History of noncompliance 22. Oropharyngeal dysphagia Plan: Plan of Care Monitor off antibiotics Continue Triumeq, on hold as patient is refusing for NG tube placement Maintain aspiration precautions Continue supportive care Discussed with nursing. MILLY NICOLE MD Apr 05, 2020 07:53
[2020-04-05] MEDS: CLOPIDOGREL BISULFATE 75 MG TABLET PO SCH (08:00)
--- NOTE | 2020-04-05 08:22 | PDOC ---
PULMONARY PROGRESS NOTES DATE: 04/05/20 TIME: 08:22 Subjective extubated 03/26, re-intubated for 03/26--V-Tac Arrest S/P cardiac cath 03/27/20-- clean extubated again on 04/03/20-- now on room air Vitals Vital Signs Date Time Temp Pulse Resp B/P (MAP) Pulse Ox O2 Delivery O2 Flow Rate FiO2 04/05/20 07:00 102 24 142/77 (98) 97 Nasal Cannula 2.0 04/05/20 03:00 98.9 98.9 ROS: No Nausea, No Chest Pain, No Abdominal Pain, No Increase Cough General: Alert Lungs: Clear Cardiovascular: S1, S2 Abdomen: Soft, Non-tender Neuro Exam: Alert, Oriented Extremities: No Edema Skin: Warm, Dry Labs Laboratory Tests Test 04/03/20 11:40 04/03/20 21:00 04/04/20 11:40 04/05/20 06:00 O2 Saturation 94 % (92-99) Arterial Blood pH 7.40 (7.35-7.45) Arterial Blood pCO2 at Patient Temp 36 mmHg (35-46) Arterial Blood pO2 at Patient Temp 75 mmHg (75-108) Arterial Blood HCO3 22 mmol/L (21-28) Arterial Blood Base Excess -3 mmol/L (-3-3) FiO2 40% 02/24 Potassium Level 4.6 mmol/L (3.5-5.1) 3.6 mmol/L (3.5-5.1) 3.5 mmol/L (3.5-5.1) Magnesium Level 2.1 mg/dL (1.8-2.4) 2.0 mg/dL (1.8-2.4) 2.1 mg/dL (1.8-2.4) Sodium Level 143 mmol/L (136-145) 143 mmol/L (136-145) Chloride Level 104 mmol/L (98-107) 105 mmol/L (98-107) Carbon Dioxide Level 24 mmol/L (21-32) 25 mmol/L (21-32) Anion Gap 15 (6-14) 13 (6-14) Blood Urea Nitrogen 4 mg/dL (8-26) 5 mg/dL (8-26) Creatinine 0.9 mg/dL (0.7-1.3) 0.8 mg/dL (0.7-1.3) Estimated GFR (Cockcroft-Gault) 107.2 122.8 Glucose Level 118 mg/dL (70-99) 144 mg/dL (70-99) Calcium Level 9.3 mg/dL (8.5-10.1) 9.6 mg/dL (8.5-10.1) Phosphorus Level 3.1 mg/dL (2.6-4.7) 2.3 mg/dL (2.6-4.7) Triglycerides Level 94 mg/dL (0-150) Laboratory Tests Test 04/04/20 11:40 04/05/20 06:00 Sodium Level 143 mmol/L (136-145) 143 mmol/L (136-145) Potassium Level 3.6 mmol/L (3.5-5.1) 3.5 mmol/L (3.5-5.1) Chloride Level 104 mmol/L (98-107) 105 mmol/L (98-107) Carbon Dioxide Level 24 mmol/L (21-32) 25 mmol/L (21-32) Anion Gap 15 (6-14) 13 (6-14) Blood Urea Nitrogen 4 mg/dL (8-26) 5 mg/dL (8-26) Creatinine 0.9 mg/dL (0.7-1.3) 0.8 mg/dL (0.7-1.3) Estimated GFR (Cockcroft-Gault) 107.2 122.8 Glucose Level 118 mg/dL (70-99) 144 mg/dL (70-99) Calcium Level 9.3 mg/dL (8.5-10.1) 9.6 mg/dL (8.5-10.1) Phosphorus Level 3.1 mg/dL (2.6-4.7) 2.3 mg/dL (2.6-4.7) Magnesium Level 2.0 mg/dL (1.8-2.4) 2.1 mg/dL (1.8-2.4) Triglycerides Level 94 mg/dL (0-150) Medications Active Scripts Medications Dose Route/Sig Max Daily Dose Days Date Category Furosemide 40 Mg Tablet 40 Mg PO DAILY 90 02/02/20 Rx Tramadol Hcl 50 Mg Tablet 50 Mg PO PRN Q6HRS PRN 6 02/02/20 Rx Metoprolol Succinate ( Xl ) (Metoprolol Succinate) 25 Mg Tab.er.24h 12.5 Mg PO DAILY 02/02/20 Rx Clopidogrel (Clopidogrel Bisulfate) 75 Mg Tablet 75 Mg PO DAILYWBKFT 02/02/20 Rx Lisinopril 10 Mg Tablet 1 Tab PO DAILY 02/02/20 Rx Atorvastatin Calcium 80 Mg Tablet 80 Mg PO QHS 02/02/20 Rx Klor-Con M20 (Potassium Chloride) 20 Meq Tab.er.prt 20 Meq PO TID 01/31/20 Reported Pantoprazole Sodium (Pantoprazole Sodium) 40 Mg Tablet.dr 40 Mg PO BID 01/31/20 Reported Duoneb 0.5-3(2.5) Mg/3 Ml (Albuterol/Ipratropium) 3 Ml Ampul.neb 3 Ml NEB PRN Q6HRS PRN 01/31/20 Reported Acetaminophen 325 Mg Tablet 1 Tab PO PRN Q6HRS PRN 24 01/31/20 Reported Triumeq Tablet (Abacavir/Dolutegravir/Lamivudi) 1 Each Tablet 1 Tab PO DAILY 01/31/20 Reported Gabapentin (Gabapentin) 300 Mg Capsule 100 Mg PO TID 01/31/20 Reported Children's Aspirin (Aspirin) 81 Mg Tab.chew 1 Tab PO DAILY 30 01/31/20 Reported Comments CXR IMPRESSION: 1. Stable life support devices. 2. Progression of left basilar opacities. 3. Increased small left pleural effusion. Impression . IMPRESSION: 1. Acute hypoxemic respiratory failure secondary to [id number] cardiopulmonary arrest. extubated 03/26, re-intubated for V-Tac Arrest 2. History of ventricular fibrillation with previous hkr-ng-fggzchcg cardiac arrest. 3. History of coronary artery disease, status post percutaneous coronary intervention to the circumflex. 4. History of gastrointestinal bleed. 5. Chronic systolic heart failure. 6. Ischemic cardiomyopathy, ejection fraction 15%. 7. Status post pacemaker implantation. 8. Hypertension. 9. Hypokalemia. 10. Previous kidney injury requiring hemodialysis. 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 12. Human immunodeficiency virus. 13. Polysubstance use. Plan . Pt. is stable from respiratory stand point Continue supplemental oxygen to keep Oxygen sats above 92%, now on room air Lasix prn w/ KCL replacement Follow Cardiology recs ---S/P cath 03/27/20 was clear--Life vest-- per cardiology Continue cardene gtt per cardiology Follow GI recs PT/OT//ST-- Failed swallow , planned for video swallow today, pt. refused NG placement-- continue TPN for nutritional support DVT/GI prophylaxis Discussed with RN and RT/ family Pt. is FULL CODE Ok to transfer out of ICU from our standpoint DAMIÁN HASTINGS MD Apr 05, 2020 08:22
[2020-04-05] MEDS: PANTOPRAZOLE IV PUSH 40 MG VIAL. IVP SCH (08:43)
[2020-04-05] MEDS: ABACAVIR PO SCH (08:44)
[2020-04-05] MEDS: LAMIVUDINE PO SCH (08:44)
[2020-04-05] MEDS: AMIODARONE HCL 200 MG TABLET. PO SCH (08:44)
[2020-04-05] MEDS: DOLUTEGRAVIR PO SCH (08:44)
[2020-04-05] MEDS: FUROSEMIDE 40 MG/4 ML VIAL. IVP SCH (08:44)
[2020-04-05] MEDS: ELECTROLYTE (ICU) PROTOCOL. MC SCH (09:00)
[2020-04-05] MEDS: POTASSIUM CHLORIDE 20MEQ 100 ML IV SCH ×2 (09:46→11:01)
[2020-04-05] MEDS: METOPROLOL IV PUSH 5 MG/5 ML VIAL. IVP SCH ×3 (09:47→23:07)
--- NOTE | 2020-04-05 10:19 | PDOC ---
Date of Service: DATE: 04/05/20 TIME: 10:17 Subjective: Subjective: Thirsty and hungry, no pain. Objective: Objective: D/w nurse - confused - no vomiting, refused NG - NPO per PHARMACY HELPER. Vital Signs: Vital Signs Date Time Temp Pulse Resp B/P (MAP) Pulse Ox O2 Delivery O2 Flow Rate FiO2 04/05/20 10:00 79 29 119/84 (96) 95 Room Air 04/05/20 08:00 98.2 2.0 98.2 Labs: Laboratory Tests Test 04/04/20 11:40 04/05/20 06:00 Sodium Level 143 mmol/L 143 mmol/L Potassium Level 3.6 mmol/L 3.5 mmol/L Chloride Level 104 mmol/L 105 mmol/L Carbon Dioxide Level 24 mmol/L 25 mmol/L Anion Gap 15 13 Blood Urea Nitrogen 4 mg/dL 5 mg/dL Creatinine 0.9 mg/dL 0.8 mg/dL Estimated GFR (Cockcroft-Gault) 107.2 122.8 Glucose Level 118 mg/dL 144 mg/dL Calcium Level 9.3 mg/dL 9.6 mg/dL Phosphorus Level 3.1 mg/dL 2.3 mg/dL Magnesium Level 2.0 mg/dL 2.1 mg/dL Triglycerides Level 94 mg/dL PE: GEN: NAD - voice hoarse/quiet LUNGS: room air HEART: RRR ABD: soft, non-tender, maybe a gurgle or two NEURO/PSYCH: pleasantly confused A/P: S/p arrests, CAD on Plavix, CHF, resp failure, encephalopathy Dysphagia post extubation Vomiting - resolved Anemia (stable - checked 04/02), h/o GI bleeding (none observed this admission) +cocaine, non-compliance COVID negative -- Continue IV PPI and TPN, follow PHARMACY HELPER evals. Justicifation of Admission Dx: Justifications for Admission: Justification of Admission Dx: Yes YNES CLEARY Apr 05, 2020 10:19
[2020-04-05] MEDS: TPN PER PHARMACY MC PRN (10:41)
--- NOTE | 2020-04-05 10:41 | NUR ---
Pharmacy TPN Dosing Note S: DENIA RODRIGUES is a 54 year old M Currently receiving Central Continuous TPN started 04/04/20 B:Pertinent PMH: Prolonged NPO, failed swallow study Height: 5 feet, 9 inches Weight: 95.2 kg Current diet: npo LABS: Sodium: 143 Potassium: 3.5 Chloride: 105 Calcium: 9.6 Corrected Calcium: 11.12 Magnesium: 2.1 CO2: 25 SCr: 0.8 Glucose: 144 Albumin: 2.1 AST: 14 ALT: 10 TPN FORMULA: TPN TYPE: Central Continuous AMINO ACIDS: 70 gm DEXTROSE: 225 gm LIPIDS: 20 gm SODIUM CHLORIDE: 45 mEq POTASSIUM CHLORIDE: 50 mEq POTASSIUM PHOSPHATE: 17 mmol MAGNESIUM: 15 mEq MULTIPLE VITAMIN: 5 ml TRACE ELEMENTS: 1 ml TPN PLAN: -Adjust macros per clinical nursing director. -Serum phos low, give NaPhos bolus outside of TPN. Increase KPhos to 17 mmol/day. -Concentrate TPN due to patient's CHF status and receiving IV Lasix. -Reduce NaCl due to TPN concentration. -Remove calcium gluconate due to interaction with KPhos in TPN; corrected calcium above goal range. -Serum TG 94 - okay to continue same lipid component. -BMP, mag, phos tomorrow per protocol. R: Change TPN to 45 ml/hr and above formula. Will monitor electrolytes, glucose, and tolerance to TPN. MODESTO BECKHAM [facility], 04/05/20 1049
[2020-04-05] MEDS ORDERED: BARIUM SULFATE 40% (APPLE) 148 GM PWD. PO ONE (11:00)
--- NOTE | 2020-04-05 11:11 | PDOC ---
URSZULA MONTE [employer] 04/05/20 1111: CARDIO Progress Notes Date and Time Date of Service 04/05/2020 Time of Evaluation 0940 Subjective Subjective: No Chest Pain, No shortness of breath, No Palpitations Vitals Vitals Vital Signs Date Time Temp Pulse Resp B/P (MAP) Pulse Ox O2 Delivery O2 Flow Rate FiO2 04/05/20 10:00 79 29 119/84 (96) 95 Room Air 04/05/20 08:00 98.2 2.0 98.2 Weight Weight [ ] Input and Output Intake and Output Intake and Output 04/05/20 06:59 Intake Total 1491 ml Output Total 3925 ml Balance -2434 ml IV Total 1491 ml Output Urine Total 3925 ml # Bowel Movements 1 Laboratory Labs Laboratory Tests Test 04/04/20 11:40 04/05/20 06:00 Sodium Level 143 mmol/L (136-145) 143 mmol/L (136-145) Potassium Level 3.6 mmol/L (3.5-5.1) 3.5 mmol/L (3.5-5.1) Chloride Level 104 mmol/L (98-107) 105 mmol/L (98-107) Carbon Dioxide Level 24 mmol/L (21-32) 25 mmol/L (21-32) Anion Gap 15 (6-14) 13 (6-14) Blood Urea Nitrogen 4 mg/dL (8-26) 5 mg/dL (8-26) Creatinine 0.9 mg/dL (0.7-1.3) 0.8 mg/dL (0.7-1.3) Estimated GFR (Cockcroft-Gault) 107.2 122.8 Glucose Level 118 mg/dL (70-99) 144 mg/dL (70-99) Calcium Level 9.3 mg/dL (8.5-10.1) 9.6 mg/dL (8.5-10.1) Phosphorus Level 3.1 mg/dL (2.6-4.7) 2.3 mg/dL (2.6-4.7) Magnesium Level 2.0 mg/dL (1.8-2.4) 2.1 mg/dL (1.8-2.4) Triglycerides Level 94 mg/dL (0-150) Microbiology Micro Microbiology 03/26/20 Urine Culture - Final, Complete 03/21/20 Gram Stain Evaluation - Final, Complete 03/21/20 Respiratory Culture - Final, Complete 03/20/20 Blood Culture - Final, Complete NO GROWTH AFTER 5 DAYS Physical Exam HEENT: Neck Supple W Full Motion Chest: Symmetric LUNGS: Other (diminished bases) Heart: RRR (SR/ST with PVCs) Abdomen: Soft N/T Extremities: No Edema Neurology: alert, oriented, follow commands Assessment Assessment 1. OOH, witness cardiac arrest; recurrent Torsades, VT arrest 07/21/20. On Amiodarone gtt. LHC with patent LCx stent. No lesions needing intervention. Post extubation 3. Acute respiratory failure secondary to above; extubated, but reintubated following cardiac arrest due to sustained Torsades, VT 07/21/20. 4. H/o Vfib OOH arrest; probable ischemic in nature, antiarrhythmics discontinued in past due to QTc prolongation. 5. Acute on chronic systolic CHF 6. ICM; LVEF 20-25%. on milrinone 7. CAD s/p PCI/BMS to the LCx 12/11/19. 8. SSS s/p leadless PPM implantation (Medtronic Micra). Device check with normal function 04/02/20. 9. Leukocytosis, fevers. ? sepsis. off pressor support 10. Hypertension; labile this am 11. H/o DAIJA requiringHD; renal function improvedand HD catheter removed 12. 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 HIV 14. Substance abuse; UDS + cocaine at [facility] 15. Noncompliance 16. Tobaccoism 17. Hypokalemia, hypomagnesemia: resolved Recommendations Currently NPO, Awaiting swallow eval. Will restart GDMT hopefully today. Pt has refused NGT so far. Start on IV lopressor for now Lasix therapy.Maintain K and Mg at least 4.0 and 2.0 respectively. Replace K Statin therapy Continue cardene while NPO Continue Amiodarone, Replace with drip if remains NPO. Check QTc He needs AICD but given his significant noncompliance such as leaving AMA from a terminal manager acute facility, refusal to take meds and substance abuse this would then predispose to multiple AICD treatments from poor adherence to terminal manager cardiac therapy. His partner has indicated intention to proceed treatments. Will plan for LifeVest upon discharge with consideration of AICD if patient establishes compliance and refrains from drug abuse Supportive care Smoking cessation Justicifation of Admission Dx: Justifications for Admission: Justification of Admission Dx: Yes SHYAM AJ MD 04/05/20 1554: CARDIO Progress Notes Plan Plan Patient seen and examined. Agree with above nurse practitioner note. Continue current medical therapy. Plan for LifeVest today. Discharge planning. URSZULA MONTE APRN Apr 05, 2020 11:11 SHYAM AJ MD Apr 05, 2020 15:54
[2020-04-05] MEDS ORDERED: POTASSIUM CHLORIDE 20MEQ 100 ML IV ONE (12:00)
[2020-04-05] MEDS ORDERED: SODIUM PHOSPHATE 15 MMOL in IV NS 100 ML IV ONE (12:00)
--- NOTE | 2020-04-05 13:10 | PDOC ---
[facility] PROGRESS NOTE Date of Service DOS: DATE: 04/05/20 TIME: 13:08 Chief Complaint Chief Complaint 0. Status post extubation 2 days ago 1. out of hospital arrest , witness cardiac arrest; Defibrillation // AMI ruled out. 2. H/o Vfib probable ischemic in nature, antiarrhythmics discontinued in past due to QTc prolongation of 600. 3. Acute hypoxic respiratory failure requiring vent support 4. CAD s/p PCI/BMS to the LCx 12/11/19. Treated with ASA,Brilinta initially, which was held due to recurrent GIB requiring transfusions.Due to recent PCI/BM S, Plavix was resumed while at [facility]. ASA was d/c'd 5. Chronic systolic CHF 6. ischemic cardiomyopathy LVEF 20-25%. 7. SSS s/p leadless PPM 8. Hypertension; // requiring pressor support 9. Hypokalemia, hypomagnesemia 10. H/o DAIJA requiringHD; renal function improvedand HD catheter removed 11. 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 HIV 13. Substance abuse; UDS + cocaine , ALCOHOL, TOBACCO 14. Leukocytosis, fevers. ? sepsis Covid negative. 15. H/o Vfib OOH arrest; probable ischemic in nature, antiarrhythmics discontinued in past due to QTc prolongation of 600. EKG at [facility] with QTc 507, 528. 16. Human immunodeficiency virus, CD4 was 403 on 01/16 viral load less than 20 on 01/23on [facility]. 17. History of ventricular tachycardia, Coronary artery disease, status post PCI. 18. Status post pacemaker for bradycardia 12/27 at [place]. 19. hypernatremia, volume excess History of Present Illness History of Present Illness 04/05/2020 Patient seen and examined in the ICU He is still is very soft-spoken Discussed with RN Is going for swallow study at noon He is now off of his Cardene drip Getting metoprolol 5 mg IV every 6 as he cannot swallow well Also on IV TPN 04/04/2020 Patient seen and examined in the ICU He got extubated yesterday He is very weak soft-spoken probably confused Chart reviewed Discussed with RN He is on a Cardene drip 04/03/2020 Patient seen and examined in the ICU He remains intubated AC/20/500/40 percent with 5 of PEEP He has mitts on for his safety Has [place] to bedside drainage Has SCDs on Sedated with Dex fentanyl and propofol Has IV Zosyn hanging Chart reviewed Discussed with RN He remains critically ill 04/02/2020 Patient seen and examined in ICU He remains intubated Assist-control/12/05 500/40% FiO2 with 5 of PEEP Discussed with RN Chart reviewed Patient on milrinone drip He is also on propofol drip for sedation He remains critically ill Identification/Chief Complaint Chief Complaint admitted to icu , out of hospial arrest CAD s/p PCI/stent, cardiomyopathy, and prior cardiac arrest, presented secondary to cardiac arrest at home. Was at home with partner, Stevenson, watching television. Patient suddenly started breathing more deeply and began gasping for air. Eyes were wide and glassy. Was unresponsive. Partner was unable to feel pulse so he put him on the floor, called EMS and began chest compressions. Partner reports him drinking 3 malt beverages that evening while watching TV. No known sick contacts. EMS arrived within minutes. ROSC returned following one defibrillation. Although partner declined drug use, Narcan was administered en route due to pinpoint pupils. Limited effect from the Narcan. UDS was + for cocaine. IS COVID 19 PUI hx cardiac arrest on December 19, 2019. Patient was apparently found arrest in his car EMS noted in v-fib. ROSC was achieved following 1 defibrillation and 1 round of epi.//activated as STEMI with LBBB. Emergent cath notable for blockage of left circumflex. //PCI/BMS to the Left circumflex. 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 LVEF noted at 20-25%. Developed DAIJA due to cardiogenic shock. had multiple episodes of bradycardia/significant pauses mostly related to suctioning. then leadlessPPM placement.Treated for Klebsiella PNA as well. course further complicated by GIB requiring tranfusion. 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 Remains on vent, FiO2 40%, PEEP 5. Swelling noted to his right arm, will obtain ultrasound to evaluate. Discussed with RN, will attempt trial extubation tomorrow. 03/31 Patient seen in ICU. Afebrile. On vent FiO2 40%, PEEP 5. Hemoglobin 7.2 and holding steady. We will continue to monitor and transfuse <7. Antibiotics per ID. 03/30 Afebrile. On vent, FiO2 40%, PEEP 5. Patient needs AICD, but some significant complaints issues. I believe cardiology is to consult neurology for further input on this issue. Charts and labs reviewed. 03/29 Patient remains in ICU on vent. FiO2 40%, PEEP 5. Discussed with RN, episode of V-tach overnight. Cardiology to consider AICD. Will continue with antibiotics and diuresis. 03/28 Afebrile. No acute events overnight. On vent, FiO2 40%, PEEP 5. Potassium low today, will replace. Continue supportive care and antibiotics. Discussed with RN 03/27 Patient seen in ICU. Breathing on mechanical ventilator, FiO2 60%, PEEP 5. Patient failed extubation yesterday. Continue Zosyn, Zyvox, p.o. vancomycin. 03/26 Patient seen and evaluated in ICU. On vent FiO2 35%, PEEP 5. Afebrile. Continue Zosyn, Zyvox, and p.o. vancomycin. Chart and labs reviewed, discussed with RN. Vitals/I&O Vitals/I&O: Vital Signs Date Time Temp Pulse Resp B/P (MAP) Pulse Ox O2 Delivery O2 Flow Rate FiO2 04/05/20 11:00 90 28 149/84 (105) 95 Room Air 04/05/20 08:00 98.2 2.0 98.2 I & O 04/04/20 04/04/20 04/05/20 15:00 23:00 07:00 Intake Total 1491 ml Output Total 2345 ml 880 ml 700 ml Balance -2345 ml 611 ml -700 ml Physical Exam Physical Exam: GENERAL: alert awake male on nasal O2 HEENT: Normocephalic atraumatic pupils equal, reactive. NECK: Supple. LUNGS: Clear anteriorly. HEART: S1, S2, tachycardia. ABDOMEN: Obese, mildly distended. Bowel sounds present. EXTREMITIES: No edema or cyanosis. Superficial thrombophlebitis right upper extremity DERMATOLOGIC: Warm and dry. No generalized rash. NEUROLOGIC alert oriented x3 grossly nonfocal General: Other (Awake but confused) Heart: Regular rate Lungs: Clear Abdomen: Normal bowel sounds Extremities: No clubbing Skin: No rashes Labs Labs: Laboratory Tests Test 04/05/20 06:00 Sodium Level 143 mmol/L (136-145) Potassium Level 3.5 mmol/L (3.5-5.1) Chloride Level 105 mmol/L (98-107) Carbon Dioxide Level 25 mmol/L (21-32) Anion Gap 13 (6-14) Blood Urea Nitrogen 5 mg/dL (8-26) Creatinine 0.8 mg/dL (0.7-1.3) Estimated GFR (Cockcroft-Gault) 122.8 Glucose Level 144 mg/dL (70-99) Calcium Level 9.6 mg/dL (8.5-10.1) Phosphorus Level 2.3 mg/dL (2.6-4.7) Magnesium Level 2.1 mg/dL (1.8-2.4) Triglycerides Level 94 mg/dL (0-150) Assessment and Plan Assessmemt and Plan 0. Status post extubation 2 days ago 1. out of hospital arrest , witness cardiac arrest; Defibrillation // AMI ruled out. 2. H/o Vfib probable ischemic in nature, antiarrhythmics discontinued in past due to QTc prolongation of 600. 3. Acute hypoxic respiratory failure 4. CAD s/p PCI/BMS to the LCx 12/11/19. Treated with ASA,Brilinta initially, which was held due to recurrent GIB requiring transfusions.Due to recent PCI/BMS, Plavix was resumed while at [facility]. ASA was d/c'd 5. Chronic systolic CHF 6. ischemic cardiomyopathy LVEF 20-25%. 7. SSS s/p leadless PPM 8. Hypertension; // requiring pressor support 9. Hypokalemia, hypomagnesemia 10. H/o DAIJA requiringHD; renal function improvedand HD catheter removed 11. 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 HIV 13. Substance abuse; UDS + cocaine , ALCOHOL, TOBACCO 14. Leukocytosis, fevers. ? sepsis Covid negative. 15. H/o Vfib OOH arrest; probable ischemic in nature, antiarrhythmics discontinued in past due to QTc prolongation of 600. EKG at [facility] with QTc 507, 528. 16. Human immunodeficiency virus, CD4 was 403 on 01/16 viral load less than 20 on 01/23on [facility]. 17. History of ventricular tachycardia, Coronary artery disease, status post PCI. 18. Status post pacemaker for bradycardia 12/27 at [place]. 19. hypernatremia, volume excess Plan ICU monitoring O2 per nasal cannula Cardiology is following Pulmonary is following Going for swallow study at noon IV metoprolol 5 mg every 6 until he can swallow better Trend labs and replace lites as needed Secondary prevention measures as able Resume Plavix. No ASA due to recent GIB Monitor LFTs Hold lisinopril, Toprol with hypotension Echo Heparin drip Nutritional support Continue IV antibiotics (Zosyn) Continue p.o. vancomycin for prophylaxis with history of recurrent C. difficile Continue Triumeq Remains very ill but improving Appreciate subspecialist input Comment Review of Relevant I have reviewed the following items joel (where applicable) has been applied. Medications: Current Medications Medications (Trade) Dose Ordered Sig/Guy Route PRN Reason Start Time Stop Time Status Last Admin Dose Admin Sodium Chloride 90 meq/Potassium Chloride 50 meq/ Potassium Phosphate 13.6 mmol/Magnesium Sulfate 15 meq/ Calcium Gluconate 10 meq/ Multivitamins 5 ml/Zinc/Copper/ Manganese/ Selenium 1 ml/ Total Parenteral Nutrition/Amino Acids/Dextrose/ Fat Emulsion Intravenous 1,512 ml @ 63 mls/hr TPN CONT IV 04/04/20 22:00 04/05/20 21:59 04/04/20 20:50 Metoprolol Tartrate (Lopressor Vial) 5 mg Q6HRS IVP 04/05/20 10:00 04/05/20 09:47 Potassium Chloride/Water 100 ml @ 100 mls/hr Q1H IV 04/05/20 10:00 04/05/20 11:59 DC 04/05/20 11:01 Barium Sulfate (Varibar Thin Liquid Apple) 148 gm 1X ONCE PO 04/05/20 11:00 04/05/20 11:04 DC 04/05/20 12:30 Justifications for Admission Other Justification CARDIAC ARREST SERA GREGORIO III DO Apr 05, 2020 13:10
[2020-04-05] MEDS: ENOXAPARIN 40 MG/0.4 ML SYRINGE. SQ SCH (13:18)
--- NOTE | 2020-04-05 13:37 | EKG ---
[address] [place] [address] Test Date: 2020-04-05 Test Time: 13:35:15 Pat Name: DENIA RODRIGUES Department: Room: 109 1 Gender: M Gullet Slitter: TY : 1965 Requested By: URSZULA MONTE Order Number: [id number] Reading MD: Measurements Intervals [place] Rate: 85 P: 66 OK: 166 QRS: 11 QRSD: 150 T: 67 QT: 416 QTc: 501 Interpretive Statements SINUS RHYTHM LEFT ATRIAL ABNORMALITY LEFT BUNDLE BRANCH BLOCK ABNORMAL ECG RI6.02 Compared to ECG 04/04/2020 15:26:44 No significant changes
--- NOTE | 2020-04-05 16:11 | NUR ---
SS following up with discharge planning. SS reviewed pt chart and discussed with pt RN. Pt is currently on room air. Pt passed swallow evaluation. Pt on TPN. HIV positive. COVID19 negative. Life Vest delivered today. Pt downgraded to CVC status. SS will continue to follow for discharge planning.
--- NOTE | 2020-04-05 16:47 | RAD ---
PROCEDURE: DG VIDEO SWALLOW STUDY STUDY DATE: 04/05/2020 CLINICAL INDICATION / HISTORY: Reason: dysphagia/ 3.O MINUTES FLUORO TIME/ 1 IMAGE / Spl. Instruction s: / History: . TECHNIQUE: Real-time fluoroscopic imaging examination was performed in conjunction with speech therap y. The patient was administered barium labeled thin liquids, nectar, honey, pudding, and solid consis tency compounds. FLUOROSCOPY TIME: 3.0 minutes. Number of Images: 8 COMPARISON: Chest x-rays of 04/02/2020 and 03/31/2020. FINDINGS: Patient does show prolonged mastication due to decreased intubation. The pharyngeal phase showed reduced laryngeal closure and aspiration was observed during ingestion of thin liquids by straw lung. There is a delayed cough. Transient laryngeal penetration was also obser brad during ingestion of thin liquids by cup, among several attempts. IMPRESSION: Dysphagia of the oral and pharyngeal phases. Aspiration observed with thin liquids by st raw. Please refer to speech pathology notes for complete details and recommendations. Electronically signed by: Dawson Gibson MD (04/05/2020 4:45 PM) [id number]
[2020-04-05] MEDS ORDERED: ELECTROLYTE (NON-ICU) PROTOCOL. MC PRN (19:00)
--- NOTE | 2020-04-05 19:45 | NUR ---
Pt in bed assessment completed pt denied pain pt alert with confusion. Pt reoriented to surroundings pt insist on getting oob reminded pt that he can not get up without assistance. Call light in reach bed alarm set will resume care and continue to monitor pt/
[2020-04-05] MEDS: ATORVASTATIN CALCIUM 40 MG TABLET. PO SCH (21:09)
[2020-04-05] MEDS ORDERED: [UNRECOGNIZED DRUG - OTHER] IV SCH (22:00)
[2020-04-05] MEDS ORDERED: AMINO ACID IV SCH (22:00)
[2020-04-05] MEDS ORDERED: DEXTROSE 70% IV SCH (22:00)
[2020-04-05] MEDS ORDERED: TOTAL PARENTERAL NUTRITION IV SCH (22:00)
[2020-04-06] MEDS: METOPROLOL IV PUSH 5 MG/5 ML VIAL. IVP SCH (05:49)
[2020-04-06] MEDS: PANTOPRAZOLE IV PUSH 40 MG VIAL. IVP SCH ×2 (05:49→08:39)
[2020-04-06 06:34] LABS: CALCIUM 9.4 mg/dL (8.5-10.1); CREATININE 0.8 mg/dL (0.7-1.3); GFR 122.8; MAGNESIUM 2.3 mg/dL (1.8-2.4); PHOSPHORUS 2.7 mg/dL (2.6-4.7); POTASSIUM 3.3 mmol/L (3.5-5.1)
[2020-04-06 07:00] VITALS: BP 139/94
[2020-04-06] MEDS: AMIODARONE HCL 200 MG TABLET. PO SCH (08:40)
[2020-04-06] MEDS: FUROSEMIDE 40 MG/4 ML VIAL. IVP SCH (08:40)
[2020-04-06] MEDS: ENOXAPARIN 40 MG/0.4 ML SYRINGE. SQ SCH (08:41)
--- NOTE | 2020-04-06 08:44 | PDOC ---
PULMONARY PROGRESS NOTES DATE: 04/06/20 TIME: 08:44 Subjective extubated 03/26, re-intubated for 03/26--V-Tac Arrest S/P cardiac cath 03/27/20-- clean extubated again on 04/03/20-- now on room air Vitals Vital Signs Date Time Temp Pulse Resp B/P (MAP) Pulse Ox O2 Delivery O2 Flow Rate FiO2 04/06/20 05:49 104 125/93 04/05/20 22:36 98.4 18 94 Room Air 98.4 04/05/20 08:00 2.0 ROS: No Nausea, No Chest Pain, No Abdominal Pain, No Increase Cough General: Alert Lungs: Clear Cardiovascular: S1, S2 Abdomen: Soft, Non-tender Neuro Exam: Alert, Oriented Extremities: No Edema Skin: Warm, Dry Labs Laboratory Tests Test 04/04/20 11:40 04/05/20 06:00 04/06/20 06:00 Sodium Level 143 mmol/L (136-145) 143 mmol/L (136-145) 144 mmol/L (136-145) Potassium Level 3.6 mmol/L (3.5-5.1) 3.5 mmol/L (3.5-5.1) 3.3 mmol/L (3.5-5.1) Chloride Level 104 mmol/L (98-107) 105 mmol/L (98-107) 109 mmol/L (98-107) Carbon Dioxide Level 24 mmol/L (21-32) 25 mmol/L (21-32) 24 mmol/L (21-32) Anion Gap 15 (6-14) 13 (6-14) 11 (6-14) Blood Urea Nitrogen 4 mg/dL (8-26) 5 mg/dL (8-26) 9 mg/dL (8-26) Creatinine 0.9 mg/dL (0.7-1.3) 0.8 mg/dL (0.7-1.3) 0.8 mg/dL (0.7-1.3) Estimated GFR (Cockcroft-Gault) 107.2 122.8 122.8 Glucose Level 118 mg/dL (70-99) 144 mg/dL (70-99) 145 mg/dL (70-99) Calcium Level 9.3 mg/dL (8.5-10.1) 9.6 mg/dL (8.5-10.1) 9.4 mg/dL (8.5-10.1) Phosphorus Level 3.1 mg/dL (2.6-4.7) 2.3 mg/dL (2.6-4.7) 2.7 mg/dL (2.6-4.7) Magnesium Level 2.0 mg/dL (1.8-2.4) 2.1 mg/dL (1.8-2.4) 2.3 mg/dL (1.8-2.4) Triglycerides Level 94 mg/dL (0-150) Laboratory Tests Test 04/06/20 06:00 Sodium Level 144 mmol/L (136-145) Potassium Level 3.3 mmol/L (3.5-5.1) Chloride Level 109 mmol/L (98-107) Carbon Dioxide Level 24 mmol/L (21-32) Anion Gap 11 (6-14) Blood Urea Nitrogen 9 mg/dL (8-26) Creatinine 0.8 mg/dL (0.7-1.3) Estimated GFR (Cockcroft-Gault) 122.8 Glucose Level 145 mg/dL (70-99) Calcium Level 9.4 mg/dL (8.5-10.1) Phosphorus Level 2.7 mg/dL (2.6-4.7) Magnesium Level 2.3 mg/dL (1.8-2.4) Medications Active Scripts Medications Dose Route/Sig Max Daily Dose Days Date Category Furosemide 40 Mg Tablet 40 Mg PO DAILY 02/02/20 Rx Tramadol Hcl 50 Mg Tablet 50 Mg PO PRN Q6HRS PRN 6 02/02/20 Rx Metoprolol Succinate ( Xl ) (Metoprolol Succinate) 25 Mg Tab.er.24h 12.5 Mg PO DAILY 02/02/20 Rx Clopidogrel (Clopidogrel Bisulfate) 75 Mg Tablet 75 Mg PO DAILYWBKFT 02/02/20 Rx Lisinopril 10 Mg Tablet 1 Tab PO DAILY 02/02/20 Rx Atorvastatin Calcium 80 Mg Tablet 80 Mg PO QHS 02/02/20 Rx Klor-Con M20 (Potassium Chloride) 20 Meq Tab.er.prt 20 Meq PO TID 01/31/20 Reported Pantoprazole Sodium (Pantoprazole Sodium) 40 Mg Tablet.dr 40 Mg PO BID 01/31/20 Reported Duoneb 0.5-3(2.5) Mg/3 Ml (Albuterol/Ipratropium) 3 Ml Ampul.neb 3 Ml NEB PRN Q6HRS PRN 01/31/20 Reported Acetaminophen 325 Mg Tablet 1 Tab PO PRN Q6HRS PRN 24 01/31/20 Reported Triumeq Tablet (Abacavir/Dolutegravir/Lamivudi) 1 Each Tablet 1 Tab PO DAILY 30 01/31/20 Reported Gabapentin (Gabapentin) 300 Mg Capsule 100 Mg PO TID 01/31/20 Reported Children's Aspirin (Aspirin) 81 Mg Tab.chew 1 Tab PO DAILY 30 01/31/20 Reported Comments CXR IMPRESSION: Interval extubation and removal of nasogastric tube. Interval improved aeration of the lungs without residual pleural effusions, pulmonary vascular congestion or pneumothorax. Impression . IMPRESSION: 1. Acute hypoxemic respiratory failure secondary to [id number] cardiopulmonary arrest. extubated 03/26, re-intubated for V-Tac Arrest 2. History of ventricular fibrillation with previous [id number] cardiac arrest. 3. History of coronary artery disease, status post percutaneous coronary intervention to the circumflex. 4. History of gastrointestinal bleed. 5. Chronic systolic heart failure. 6. Ischemic cardiomyopathy, ejection fraction 15%. 7. Status post pacemaker implantation. 8. Hypertension. 9. Hypokalemia. 10. Previous kidney injury requiring hemodialysis. 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 12. Human immunodeficiency virus. 13. Polysubstance use. Plan . Pt. is stable from respiratory stand point Continue supplemental oxygen to keep Oxygen sats above 92%, now on room air Lasix prn w/ KCL replacement Follow Cardiology recs ---S/P cath 03/27/20 was clear--Life vest-- per cardiology Follow GI recs PT/OT//ST--now recommended for regular diet with thin liquids, DC TPN per PCP DVT/GI prophylaxis Discussed with RN and RT/ family Social work following for DC planning, We will sign off at this time please call with any questions or concerns thank you DAMIÁN HASTINGS MD Apr 06, 2020 08:44
[2020-04-06] MEDS: CLOPIDOGREL BISULFATE 75 MG TABLET PO SCH (08:45)
--- NOTE | 2020-04-06 08:45 | PDOC ---
PROGRESS NOTES Date of Service DATE: 04/06/20 TIME: 08:43 Assessment Anoxic encephalopathy following V. tach cardiac arrest, head CT negative. Coronary artery disease status-post stent, cardiomyopathy requiring defibrillator placement which has not been done yet due to his drug use. HIV, pacemaker, hyperlipidemia, hypertension, pneumonia, gastrointestinal bleeding, history of acute kidney injury requiring dialysis, no longer on this, alcohol and substance abuse He is going to get a life vest Plan Continue current supportive care. Subjective Denies pain Objective Vital Signs Date Time Temp Pulse Resp B/P (MAP) Pulse Ox O2 Delivery O2 Flow Rate FiO2 04/06/20 05:49 104 125/93 04/05/20 22:36 98.4 18 94 Room Air 98.4 04/05/20 08:00 2.0 Intake and Output 04/06/20 07:00 Intake Total 240 ml Output Total 1050 ml Balance -810 ml Intake Oral 240 ml Output Urine Total 1050 ml # Bowel Movements 3 PHYSICAL EXAM Alert knows name, insists that he is not in the hospital PERRL. EOMI. CN: no focal findings. Muscle tone: normal. Muscle strength: 3/5 DTR: 1+ Plantar reflex: Flexor Gait: not examined in bed. Sensory exam: no abnormal findings. No cerebellar signs elicited. Review of Relevant I have reviewed the following items joel (where applicable) has been applied. Labs Laboratory Tests Test 04/04/20 11:40 04/05/20 06:00 04/06/20 06:00 Sodium Level 143 mmol/L (136-145) 143 mmol/L (136-145) 144 mmol/L (136-145) Potassium Level 3.6 mmol/L (3.5-5.1) 3.5 mmol/L (3.5-5.1) 3.3 mmol/L (3.5-5.1) Chloride Level 104 mmol/L (98-107) 105 mmol/L (98-107) 109 mmol/L (98-107) Carbon Dioxide Level 24 mmol/L (21-32) 25 mmol/L (21-32) 24 mmol/L (21-32) Anion Gap 15 (6-14) 13 (6-14) 11 (6-14) Blood Urea Nitrogen 4 mg/dL (8-26) 5 mg/dL (8-26) 9 mg/dL (8-26) Creatinine 0.9 mg/dL (0.7-1.3) 0.8 mg/dL (0.7-1.3) 0.8 mg/dL (0.7-1.3) Estimated GFR (Cockcroft-Gault) 107.2 122.8 122.8 Glucose Level 118 mg/dL (70-99) 144 mg/dL (70-99) 145 mg/dL (70-99) Calcium Level 9.3 mg/dL (8.5-10.1) 9.6 mg/dL (8.5-10.1) 9.4 mg/dL (8.5-10.1) Phosphorus Level 3.1 mg/dL (2.6-4.7) 2.3 mg/dL (2.6-4.7) 2.7 mg/dL (2.6-4.7) Magnesium Level 2.0 mg/dL (1.8-2.4) 2.1 mg/dL (1.8-2.4) 2.3 mg/dL (1.8-2.4) Triglycerides Level 94 mg/dL (0-150) Laboratory Tests Test 04/06/20 06:00 Sodium Level 144 mmol/L (136-145) Potassium Level 3.3 mmol/L (3.5-5.1) Chloride Level 109 mmol/L (98-107) Carbon Dioxide Level 24 mmol/L (21-32) Anion Gap 11 (6-14) Blood Urea Nitrogen 9 mg/dL (8-26) Creatinine 0.8 mg/dL (0.7-1.3) Estimated GFR (Cockcroft-Gault) 122.8 Glucose Level 145 mg/dL (70-99) Calcium Level 9.4 mg/dL (8.5-10.1) Phosphorus Level 2.7 mg/dL (2.6-4.7) Magnesium Level 2.3 mg/dL (1.8-2.4) Microbiology 03/26/20 Urine Culture - Final, Complete 03/21/20 Gram Stain Evaluation - Final, Complete 03/21/20 Respiratory Culture - Final, Complete 03/20/20 Blood Culture - Final, Complete NO GROWTH AFTER 5 DAYS Medications Current Medications Norepinephrine Bitartrate 8 mg/ Dextrose 258 ml @ 18.247 mls/ hr CONT PRN IV PER PROTOCOL Last administered on 03/28/20at 19:12; Start 03/20/20 at 04:15 Dopamine HCl/ Dextrose 250 ml @ 17.681 mls/ hr CONT PRN IV SEE I/O RECORD; Start 03/20/20 at 04:30 Heparin Sodium/ Dextrose 250 ml @ 0 mls/hr CONT PRN IV PER PROTOCOL Last administered on 03/21/20at 22:15; Start 03/20/20 at 04:30; Stop 03/22/20 at 10:15; Status DC Heparin Sodium (Porcine) (Heparin Sodium) 2,400 unit PRN Q6HRS PRN IV FOR UFH LEVEL LESS THAN 0.2 Last administered on 03/21/20at 14:17; Start 03/20/20 at 04:30; Stop 03/22/20 at 10:15; Status DC Fentanyl Citrate 30 ml @ 0 mls/hr CONT PRN IV SEE PROTOCOL Last administered on 03/23/20at 06:19; Start 03/20/20 at 04:45; Stop 03/23/20 at 19:11; Status DC Lorazepam (Ativan Inj) 1 mg PRN Q1HR PRN IV SEE COMMENTS Last administered on 03/26/20at 14:30; Start 03/20/20 at 04:45; Stop 03/26/20 at 15:29; Status DC Fentanyl Citrate (Fentanyl 2ml Vial) 25 mcg PRN Q1HR PRN IV SEE COMMENTS; Start 03/20/20 at 04:45; Stop 03/26/20 at 15:29; Status DC Fentanyl Citrate (Fentanyl 2ml Vial) 50 mcg PRN Q1HR PRN IV SEE COMMENTS; Start 03/20/20 at 04:45; Stop 03/26/20 at 15:29; Status DC Chlorhexidine Gluconate (Peridex) 15 ml BID MM ; Start 03/20/20 at 09:00; Stop 03/20/20 at 07:24; Status DC Famotidine (Pepcid Vial) 20 mg BID IVP Last administered on 03/20/20at 08:07; Start 03/20/20 at 09:00; Stop 03/20/20 at 12:52; Status DC Morphine Sulfate (Morphine Sulfate) 2 mg PRN Q1HR PRN IV SEE COMMENTS.; Start 03/20/20 at 04:45; Stop 03/26/20 at 04:43; Status DC Morphine Sulfate (Morphine Sulfate) 4 mg PRN Q1HR PRN IV SEE COMMENTS.; Start 03/20/20 at 04:45; Stop 03/26/20 at 04:43; Status DC Midazolam HCl 100 ml @ 0 mls/hr CONT PRN IV SEE PROTOCOL Last administered on 03/26/20at 02:42; Start 03/20/20 at 04:45; Stop 03/26/20 at 15:29; Status DC Docusate Sodium (Colace Solution) 100 mg BID NG Last administered on 03/26/20at 08:35; Start 03/20/20 at 09:00; Stop 03/26/20 at 15:28; Status DC Sodium Chloride 1,000 ml @ 55 mls/hr [id number] IV Last administered on 04/02/20at 19:36; Start 03/20/20 at 06:30; Stop 04/03/20 at 06:08; Status DC Acetaminophen (Tylenol) 650 mg PRN Q6HRS PRN PEG MILD PAIN / TEMP > 100.3'F Last administered on 03/27/20at 20:51; Start 03/20/20 at 09:00 Piperacillin Sod/ Tazobactam Sod (Zosyn Per Pharmacy) 1 each PRN DAILY PRN MC SEE COMMENTS; Start 03/20/20 at 09:30; Stop 04/04/20 at 10:19; Status DC Piperacillin Sod/ Tazobactam Sod 3.375 gm/Sodium Chloride 50 ml @ 100 mls/hr Q6HRS IV Last administered on 04/04/20at 06:03; Start 03/20/20 at 10:00; Stop 04/04/20 at 08:17; Status DC Magnesium Sulfate 50 ml @ 25 mls/hr 1X ONCE IV Last administered on 03/20/20at 10:21; Start 03/20/20 at 09:45; Stop 03/20/20 at 11:44; Status DC Clopidogrel Bisulfate (Plavix) 75 mg DAILYWBKFT PO Last administered on 04/03/20at 08:16; Start 03/20/20 at 12:00 Atorvastatin Calcium (Lipitor) 80 mg QHS PO Last administered on 04/05/20at 21:09; Start 03/20/20 at 21:00 Ondansetron HCl (Zofran) 4 mg PRN Q6HRS PRN IVP NAUSEA/VOMITING Last administered on 04/04/20 05:24; Start 03/20/20 at 10:30 Famotidine (Pepcid Vial) 20 mg BID IVP ; Start 03/20/20 at 11:00; Stop 03/20/20 at 12:35; Status DC Info (Icu Electrolyte Protocol) 1 ea DAILY MC Last administered on 04/05/20 09:00; Start 03/21/20 at 09:00; Stop 04/05/20 at 18:53; Status DC Sodium Chloride (Normal Saline Flush) 3 ml QSHIFT PRN IV AFTER MEDS AND BLOOD DRAWS; Start 03/20/20 at 10:30 Pantoprazole Sodium (PROTONIX VIAL for IV PUSH) 40 mg DAILYAC IVP Last administered on 04/06/20 05:49; Start 03/20/20 at 12:30 Potassium Bicarbonate (Potassium Effervescent Tablet) 40 meq 1X ONCE PEG Last administered on 03/20/20at 14:47; Start 03/20/20 at 14:00; Stop 03/20/20 at 14:20; Status DC Non-Formulary Medication (ABACAVIR/ DOLUTEGRAVIR/ LAMIVUDINE (Triumeq) tablet) 1 ea DAILY PO Last administered on 04/03/20 08:16; Start 03/20/20 at 17:00 Vancomycin HCl (Vancomycin Oral Solution) 125 mg BID PO Last administered on 04/03/20 08:17; Start 03/20/20 at 21:30; Stop 04/04/20 at 08:17; Status DC Linezolid/Dextrose 300 ml @ 300 mls/hr Q12HR IV Last administered on 03/28/20 08:19; Start 03/21/20 at 09:00; Stop 03/28/20 at 08:39; Status DC Furosemide (Lasix) 40 mg DAILY IVP Last administered on 04/05/20 08:44; Start 03/22/20 at 11:00 Potassium Chloride/Water 100 ml @ 50 mls/hr 1X ONCE IV Last administered on 03/22/20at 12:58; Start 03/22/20 at 10:30; Stop 03/22/20 at 12:29; Status DC Fentanyl Citrate 55 ml @ 0 mls/hr CONT PRN IV SEE PROTOCOL Last administered on 04/03/20at 00:18; Start 03/23/20 at 19:15; Stop 04/05/20 at 18:53; Status DC Dexmedetomidine HCl 400 mcg/ Sodium Chloride 100 ml @ 0 mls/hr CONT PRN IV PER PROTOCOL Last administered on 03/24/20at 03:33; Start 03/23/20 at 21:00; Stop 03/24/20 at 08:52; Status DC Sodium Chloride 500 ml @ 500 mls/hr 1X PRN PRN IV SEE COMMENTS; Start 03/23/20 at 21:00 Atropine Sulfate (ATROPINE 0.5mg SYRINGE) 0.5 mg PRN Q5MIN PRN IV SEE COMMENTS; Start 03/23/20 at 21:00 Haloperidol Lactate (Haldol Inj) 5 mg PRN Q6HRS PRN IVP AGITATION; Start 03/23/20 at 21:00; Stop 03/24/20 at 08:52; Status DC Propofol 100 ml @ 2.748 mls/ hr CONT PRN IV PER PROTOCOL Last administered on 03/25/20at 01:17; Start 03/24/20 at 09:00; Stop 03/26/20 at 15:31; Status DC Potassium Chloride/Water 100 ml @ 100 mls/hr Q1H IV Last administered on 03/25/20at 19:02; Start 03/25/20 at 10:00; Stop 03/25/20 at 17:59; Status DC Potassium Chloride/Water 100 ml @ 100 mls/hr Q1H IV ; Start 03/25/20 at 15:00; Stop 03/25/20 at 13:59; Status DC Potassium Bicarbonate (Potassium Effervescent Tablet) 40 meq 1X ONCE PO Last administered on 03/26/20at 08:36; Start 03/26/20 at 08:15; Stop 03/26/20 at 08:22; Status DC Propofol 100 ml @ As Directed STK-MED ONCE IV ; Start 03/26/20 at 19:07; Stop 03/26/20 at 19:07; Status DC Fentanyl Citrate 30 ml @ 0 mls/hr CONT PRN IV SEE PROTOCOL; Start 03/26/20 at 19:15; Status Cancel Propofol 100 ml @ 0 mls/hr CONT PRN IV PER PROTOCOL; Start 03/26/20 at 19:15; Status Cancel Fentanyl Citrate (Fentanyl 2ml Vial) 25 mcg PRN Q1HR PRN IV SEE COMMENTS Last administered on 04/03/20at 21:02; Start 03/26/20 at 19:15 Fentanyl Citrate (Fentanyl 2ml Vial) 50 mcg PRN Q1HR PRN IV SEE COMMENTS Last administered on 04/04/20at 02:45; Start 03/26/20 at 19:15 Chlorhexidine Gluconate (Peridex) 15 ml BID MM Last administered on 03/27/20at 20:51; Start 03/26/20 at 21:00; Stop 03/28/20 at 11:44; Status DC Morphine Sulfate (Morphine Sulfate) 2 mg PRN Q1HR PRN IV SEE COMMENTS.; Start 03/26/20 at 19:15; Status Cancel Morphine Sulfate (Morphine Sulfate) 2 mg PRN Q1HR PRN IV SEE COMMENTS.; Start 03/26/20 at 19:15; Stop 03/28/20 at 22:35; Status DC Morphine Sulfate (Morphine Sulfate) 4 mg PRN Q1HR PRN IV SEE COMMENTS.; Start 03/26/20 at 19:15; Stop 03/28/20 at 22:35; Status DC Olanzapine (ZyPREXA ZYDIS) 5 mg PRN Q4HRS PRN PO AGITATION, DELIRIUM Last administered on 04/06/20at 04:15; Start 03/26/20 at 19:15 Labetalol HCl (Normodyne Iv Push) 10 mg PRN Q2HR PRN IVP HYPERTENSION; Start 03/26/20 at 19:15 Fentanyl Citrate 30 ml @ 0 mls/hr CONT PRN IV SEE PROTOCOL; Start 03/26/20 at 19:15; Status UNV Propofol 100 ml @ 0 mls/hr CONT PRN IV PER PROTOCOL Last administered on 04/03/20at 05:44; Start 03/26/20 at 19:15; Stop 04/05/20 at 18:53; Status DC Midazolam HCl 100 ml @ 0 mls/hr CONT PRN IV SEE PROTOCOL Last administered on 04/01/20at 12:21; Start 03/26/20 at 19:15; Stop 04/05/20 at 18:53; Status DC Amiodarone HCl 150 mg/Dextrose 103 ml @ 618 mls/hr 1X ONCE IV Last administered on 03/26/20at 19:44; Start 03/26/20 at 19:45; Stop 03/26/20 at 19:54; Status DC Amiodarone HCl 450 mg/Dextrose 259 ml @ 0 mls/hr 1X ONCE IV Last administered on 03/26/20at 19:45; Start 03/26/20 at 19:45; Stop 03/26/20 at 19:46; Status DC Potassium Chloride/Water 100 ml @ 100 mls/hr Q1H IV Last administered on 03/27/20at 00:44; Start 03/26/20 at 21:00; Stop 03/27/20 at 00:59; Status DC Sodium Chloride 500 ml @ 500 mls/hr 1X ONCE IV Last administered on 03/26/20at 21:09; Start 03/26/20 at 21:15; Stop 03/26/20 at 22:14; Status DC Magnesium Sulfate 100 ml @ 50 mls/hr DAILY IV Last administered on 03/26/20at 22:23; Start 03/26/20 at 22:00; Stop 03/29/20 at 03:54; Status DC Etomidate (Amidate) 20 mg STK-MED ONCE IV ; Start 03/26/20 at 23:34; Stop 03/26/20 at 23:35; Status DC Succinylcholine Chloride (Anectine) 200 mg STK-MED ONCE .ROUTE ; Start 03/26/20 at 23:34; Stop 03/26/20 at 23:35; Status DC Lidocaine HCl (Lidocaine HCl 2% Abboject) 80 mg 1X ONCE IV Last administered on 03/27/20at 01:50; Start 03/27/20 at 02:00; Stop 03/27/20 at 02:01; Status DC Potassium Chloride/Water 100 ml @ 100 mls/hr Q1H IV Last administered on 03/27/20at 07:24; Start 03/27/20 at 02:00; Stop 03/27/20 at 05:59; Status DC Dexmedetomidine HCl 400 mcg/ Sodium Chloride 100 ml @ 0 mls/hr CONT PRN IV PER PROTOCOL Last administered on 04/03/20at 01:36; Start 03/27/20 at 01:45; Stop 04/05/20 at 18:53; Status DC Sodium Chloride 500 ml @ 500 mls/hr 1X PRN PRN IV SEE COMMENTS; Start 03/27/20 at 01:45; Status Cancel Atropine Sulfate (ATROPINE 0.5mg SYRINGE) 0.5 mg PRN Q5MIN PRN IV SEE COMMENTS; Start 03/27/20 at 01:45; Stop 03/27/20 at 16:31; Status DC Amiodarone HCl 450 mg/Dextrose 259 ml @ 16.7 mls/hr CONT PRN IV SEE I/O RECORD Last administered on 03/27/20at 18:15; Start 03/27/20 at 03:00; Stop 03/27/20 at 18:16; Status DC Lidocaine HCl (Lidocaine 1% 20ml Vial) 20 ml STK-MED ONCE .ROUTE ; Start 03/27/20 at 09:23; Stop 03/27/20 at 09:23; Status DC Heparin Sodium/ Sodium Chloride 1,000 ml @ As Directed STK-MED ONCE .ROUTE ; Start 03/27/20 at 09:23; Stop 03/27/20 at 09:24; Status DC Iodixanol (Visipaque 320) 100 ml STK-MED ONCE .ROUTE ; Start 03/27/20 at 09:23; Stop 03/27/20 at 09:24; Status DC Heparin Sodium/ Sodium Chloride (HEPARIN for ARTERIAL LINE FLUSH) 1,000 unit 1X ONCE IART Last administered on 03/27/20at 10:00; Start 03/27/20 at 10:00; Stop 03/27/20 at 10:01; Status DC Heparin Sodium/ Sodium Chloride (HEPARIN for ARTERIAL LINE FLUSH) 1,000 unit 1X ONCE IART Last administered on 03/27/20at 10:00; Start 03/27/20 at 10:00; Stop 03/27/20 at 10:01; Status DC Iodixanol (Visipaque 320) 100 ml 1X ONCE IART Last administered on 03/27/20at 11:05; Start 03/27/20 at 10:00; Stop 03/27/20 at 10:01; Status DC Lidocaine HCl (Lidocaine 1% 20ml Vial) 20 ml 1X ONCE INJ Last administered on 03/27/20at 10:41; Start 03/27/20 at 10:00; Stop 03/27/20 at 10:01; Status DC Info (CONTRAST GIVEN -- Rx MONITORING) 1 each PRN DAILY PRN MC SEE COMMENTS; Start 03/27/20 at 10:00; Stop 03/29/20 at 09:59; Status DC Milrinone Lactate/ Dextrose 100 ml @ 10.103 mls/ hr CONT PRN IV SEE I/O RECORD Last administered on 03/30/20at 09:19; Start 03/27/20 at 11:30; Stop 03/30/20 at 15:28; Status DC Epinephrine HCl (EPINEPHrine SYRINGE) 1 mg STK-MED ONCE .ROUTE ; Start 03/26/20 at 21:00; Stop 03/27/20 at 19:23; Status DC Sodium Bicarbonate (Sodium Bicarb Adult 8.4% Syr) 50 meq STK-MED ONCE .ROUTE ; Start 03/26/20 at 21:00; Stop 03/27/20 at 19:23; Status DC Potassium Chloride/Water 100 ml @ 100 mls/hr Q1H IV Last administered on 03/28/20at 08:18; Start 03/28/20 at 06:00; Stop 03/28/20 at 07:59; Status DC Amiodarone HCl (Cordarone) 200 mg BID PO Last administered on 03/29/20at 07:46; Start 03/28/20 at 21:00; Stop 03/29/20 at 10:29; Status DC Lidocaine HCl (Lidocaine HCl 2% Abboject) 80 mg 1X ONCE IV Last administered on 03/28/20at 19:55; Start 03/28/20 at 20:15; Stop 03/28/20 at 20:16; Status DC Amiodarone HCl (Cordarone) 200 mg 1X ONCE PO Last administered on 03/29/20at 13:55; Start 03/29/20 at 13:45; Stop 03/29/20 at 13:50; Status DC Amiodarone HCl (Cordarone) 400 mg DAILY PO Last administered on 04/03/20at 08:15; Start 03/30/20 at 09:00 Magnesium Sulfate 50 ml @ 25 mls/hr 1X ONCE IV Last administered on 03/30/20at 09:55; Start 03/30/20 at 09:45; Stop 03/30/20 at 11:44; Status DC Potassium Bicarbonate (Potassium Effervescent Tablet) 40 meq 1X ONCE PEG Last administered on 03/30/20at 09:54; Start 03/30/20 at 09:45; Stop 03/30/20 at 09:53; Status DC Potassium Bicarbonate (Potassium Effervescent Tablet) 40 meq 1X ONCE PO Last administered on 03/30/20at 13:40; Start 03/30/20 at 14:15; Stop 03/30/20 at 14:16; Status DC Epinephrine HCl (EPINEPHrine SYRINGE) 1 mg STK-MED ONCE .ROUTE ; Start 03/29/20 at 12:00; Stop 03/30/20 at 13:02; Status DC Lidocaine HCl (Lidocaine HCl 2% Abboject) 100 mg STK-MED ONCE .ROUTE ; Start 03/29/20 at 12:00; Stop 03/30/20 at 13:02; Status DC Milrinone Lactate/ Dextrose 100 ml @ 6.735 mls/ hr CONT PRN IV SEE I/O RECORD Last administered on 04/01/20at 20:33; Start 03/30/20 at 15:30 Magnesium Sulfate 50 ml @ 25 mls/hr 1X ONCE IV Last administered on 03/31/20at 08:38; Start 03/31/20 at 08:30; Stop 03/31/20 at 10:29; Status DC Potassium Bicarbonate (Potassium Effervescent Tablet) 40 meq 1X ONCE PEG Last administered on 03/31/20at 08:37; Start 03/31/20 at 08:00; Stop 03/31/20 at 08:01; Status DC Potassium Bicarbonate (Potassium Effervescent Tablet) 40 meq 1X ONCE PEG Last administered on 03/31/20at 12:31; Start 03/31/20 at 12:00; Stop 03/31/20 at 12:01; Status DC Potassium Bicarbonate (Potassium Effervescent Tablet) 80 meq 1X ONCE PO Last administered on 04/01/20at 10:05; Start 04/01/20 at 09:45; Stop 04/01/20 at 09:46; Status DC Potassium Bicarbonate (Potassium Effervescent Tablet) 20 meq 1X ONCE PEG Last administered on 04/01/20at 16:25; Start 04/01/20 at 16:15; Stop 04/01/20 at 16:16; Status DC Potassium Chloride/Water 100 ml @ 100 mls/hr Q1H IV Last administered on 04/02/20at 09:24; Start 04/02/20 at 07:30; Stop 04/02/20 at 09:29; Status DC Magnesium Sulfate 50 ml @ 25 mls/hr 1X ONCE IV Last administered on 04/02/20at 07:52; Start 04/02/20 at 07:30; Stop 04/02/20 at 09:29; Status DC Potassium Bicarbonate (Potassium Effervescent Tablet) 40 meq 1X ONCE PEG Last administered on 04/02/20at 09:34; Start 04/02/20 at 09:30; Stop 04/02/20 at 09:31; Status DC Enoxaparin Sodium (Lovenox 40mg Syringe) 40 mg Q24H SQ Last administered on 04/05/20at 13:18; Start 04/02/20 at 12:00 Magnesium Sulfate 50 ml @ 25 mls/hr 1X ONCE IV Last administered on 04/02/20at 11:47; Start 04/02/20 at 12:00; Stop 04/02/20 at 13:59; Status DC Nicardipine HCl 50 mg/Sodium Chloride 250 ml @ 25 mls/hr CONT PRN IV SEE I/O RECORD Last administered on 04/04/20at 17:16; Start 04/02/20 at 12:00 Sodium Chloride 1,000 ml @ 55 mls/hr [id number] IV Last administered on 04/04/20at 10:42; Start 04/03/20 at 12:00 Potassium Chloride/Water 100 ml @ 100 mls/hr Q1H IV Last administered on 04/03/20at 20:15; Start 04/03/20 at 17:30; Stop 04/03/20 at 21:29; Status DC Info (Tpn Per Pharmacy) 1 each PRN DAILY PRN MC SEE COMMENTS Last administered on 04/05/20at 10:41; Start 04/04/20 at 11:00 Amino Acids/ Glycerin/ Electrolytes 1,000 ml @ 80 mls/hr [id number] IV Last administered on 04/04/20at 11:00; Start 04/04/20 at 11:30; Stop 04/04/20 at 21:59; Status DC Potassium Chloride/Water 100 ml @ 100 mls/hr Q1H IV Last administered on 04/04/20at 16:21; Start 04/04/20 at 13:00; Stop 04/04/20 at 16:59; Status DC Sodium Chloride 90 meq/Potassium Chloride 50 meq/ Potassium Phosphate 13.6 mmol/Magnesium Sulfate 15 meq/ Calcium Gluconate 10 meq/ Multivitamins 5 ml/Zinc/Copper/ Manganese/ Selenium 1 ml/ Total Parenteral Nutrition/Amino Acids/Dextrose/ Fat Emulsion Intravenous 1,512 ml @ 63 mls/hr TPN CONT IV Last administered on 04/04/20at 20:50; Start 04/04/20 at 22:00; Stop 04/05/20 at 21:59; Status DC Metoprolol Tartrate (Lopressor Vial) 5 mg Q6HRS IVP Last administered on 04/06/20at 05:49; Start 04/05/20 at 10:00 Potassium Chloride/Water 100 ml @ 100 mls/hr Q1H IV Last administered on 04/05/20at 11:01; Start 04/05/20 at 10:00; Stop 04/05/20 at 11:59; Status DC Sodium Phosphate 15 mmol/Sodium Chloride 105 ml @ 105 mls/hr 1X ONCE IV Last administered on 04/05/20at 13:18; Start 04/05/20 at 12:00; Stop 04/05/20 at 12:59; Status DC Sodium Chloride 45 meq/Potassium Chloride 50 meq/ Potassium Phosphate 17 mmol/ Magnesium Sulfate 15 meq/ Multivitamins 5 ml/Zinc/Copper/ Manganese/ Selenium 1 ml/ Total Parenteral Nutrition/Amino Acids/Dextrose/ Fat Emulsion Intravenous 1,080 ml @ 45 mls/hr TPN CONT IV Last administered on 04/05/20at 22:34; Start 04/05/20 at 22:00; Stop 04/06/20 at 21:59 Barium Sulfate (Varibar Thin Liquid Apple) 148 gm 1X ONCE PO Last administered on 04/05/20at 12:30; Start 04/05/20 at 11:00; Stop 04/05/20 at 11:04; Status DC Potassium Chloride/Water 100 ml @ 100 mls/hr 1X ONCE IV ; Start 04/05/20 at 12:00; Stop 04/05/20 at 12:59; Status DC Info (Non-Icu Electrolyte Protocol) 1 ea CONT PRN PRN MC SEE COMMENTS; Start 04/05/20 at 19:00 Active Scripts Active Furosemide 40 Mg Tablet 40 Mg PO DAILY 90 Days Tramadol Hcl 50 Mg Tablet 50 Mg PO PRN Q6HRS PRN 6 Days Metoprolol Succinate ( Xl ) (Metoprolol Succinate) 25 Mg Tab.er.24h 12.5 Mg PO DAILY 90 Days Clopidogrel (Clopidogrel Bisulfate) 75 Mg Tablet 75 Mg PO [id number] 90 Days Lisinopril 10 Mg Tablet 1 Tab PO DAILY 90 Days Atorvastatin Calcium 80 Mg Tablet 80 Mg PO QHS 90 Days Reported Klor-Con M20 (Potassium Chloride) 20 Meq Tab.er.prt 20 Meq PO TID Pantoprazole Sodium (Pantoprazole Sodium) 40 Mg Tablet.dr 40 Mg PO BID Duoneb 0.5-3(2.5) Mg/3 Ml (Albuterol/Ipratropium) 3 Ml Ampul.neb 3 Ml NEB PRN Q6HRS PRN Acetaminophen 325 Mg Tablet 1 Tab PO PRN Q6HRS PRN 24 Days Triumeq Tablet (Abacavir/Dolutegravir/Lamivudi) 1 Each Tablet 1 Tab PO DAILY 30 Days Gabapentin (Gabapentin) 300 Mg Capsule 100 Mg PO TID Children's Aspirin (Aspirin) 81 Mg Tab.chew 1 Tab PO DAILY 30 Days Vitals/I & O Vital Sign - Last 24 Hours 04/05/20 04/05/20 04/05/20 04/05/20 09:00 09:47 10:00 11:00 Pulse 99 102 79 90 Resp 30 29 28 B/P (MAP) 138/88 (105) 138/88 119/84 (96) 149/84 (105) Pulse Ox 93 95 95 O2 Delivery Room Air Room Air Room Air 04/05/20 04/05/20 04/05/20 04/05/20 12:00 12:00 13:00 14:00 Temp 98.7 98.7 Pulse 102 92 88 Resp 36 39 29 B/P (MAP) 166/100 (122) 142/84 (103) 133/84 (100) Pulse Ox 94 95 98 O2 Delivery Room Air Room Air Room Air Room Air 04/05/20 04/05/20 04/05/20 04/05/20 17:46 19:00 19:45 22:36 Temp 99.2 98.4 99.2 98.4 Pulse 88 92 77 Resp 28 18 B/P (MAP) 133/84 149/98 (115) 133/93 (106) Pulse Ox 92 94 O2 Delivery Room Air Room Air Room Air 04/05/20 04/06/20 23:07 05:49 Pulse 77 104 B/P (MAP) 133/93 125/93 Intake and Output 04/05/20 04/05/20 04/06/20 15:00 23:00 07:00 Intake Total 120 ml 120 ml Output Total 975 ml 75 ml Balance -975 ml 45 ml 120 ml Justicifation of Admission Dx: Justifications for Admission: Justification of Admission Dx: Yes ERIN MAYEN MD Apr 06, 2020 08:45
[2020-04-06] MEDS: ABACAVIR PO SCH (09:00)
[2020-04-06] MEDS: DOLUTEGRAVIR PO SCH (09:00)
[2020-04-06] MEDS: LAMIVUDINE PO SCH (09:00)
--- NOTE | 2020-04-06 09:16 | RAD ---
XR CHEST 1V 04/06/2020 7:36 AM INDICATION: CHF COMPARISON: 04/02/2020 TECHNIQUE: Portable frontal view of the chest is provided. FINDINGS: The cardiomediastinal silhouette is similar in appearance. Interval extubation and removal of nasogas tric tube. Left IJ central venous catheter is identified in similar position. Improved aeration of the lungs. No residual pleural effusions, pulmonary vascular congestion or pneum othorax. No suspicious osseous abnormality. IMPRESSION: Interval extubation and removal of nasogastric tube. Interval improved aeration of the lungs without residual pleural effusions, pulmonary vascular congestion or pneumothorax. Electronically signed by: Lorene Baez MD (04/06/2020 9:13 AM) [id number]
--- NOTE | 2020-04-06 09:58 | PDOC ---
Infectious Disease Note Subjective: Subjective Patient transferred out of ICU to medical floor Feels better Denies any complaints Vital Signs: Vital Signs Vital Signs Date Time Temp Pulse Resp B/P (MAP) Pulse Ox O2 Delivery O2 Flow Rate FiO2 04/06/20 08:40 104 125/93 04/06/20 07:00 98.1 20 96 Room Air 98.1 04/05/20 08:00 2.0 Physical Exam: PHYSICAL EXAM GENERAL: alert awake male on nasal O2 HEENT: Normocephalic atraumatic pupils equal, reactive. NECK: Supple. LUNGS: Clear anteriorly. HEART: S1, S2, no murmurs ABDOMEN: Obese, mildly distended. Bowel sounds present. EXTREMITIES: No edema or cyanosis. Superficial thrombophlebitis right upper extremity DERMATOLOGIC: Warm and dry. No generalized rash. NEUROLOGIC alert oriented x3 grossly nonfocal Medications: Inpatient Meds: Current Medications Medications (Trade) Dose Ordered Sig/Guy Start Time Stop Time Status Last Admin Dose Admin Acetaminophen (Tylenol) 650 mg PRN Q6HRS PRN 03/20/20 09:00 03/27/20 20:51 650 MG Amino Acids/ Glycerin/ Electrolytes 1,000 ml @ 80 mls/hr [id number] 04/04/20 11:30 04/04/20 21:59 DC 04/04/20 11:00 80 MLS/HR Amiodarone HCl (Cordarone) 400 mg DAILY 03/30/20 09:00 04/06/20 08:40 400 MG Amiodarone HCl 150 mg/Dextrose 103 ml @ 618 mls/hr 1X ONCE 03/26/20 19:45 03/26/20 19:54 DC 03/26/20 19:44 618 MLS/HR Amiodarone HCl 450 mg/Dextrose 259 ml @ 16.7 mls/hr CONT PRN 03/27/20 03:00 03/27/20 18:16 DC 03/27/20 18:15 16.7 MLS/HR Atorvastatin Calcium (Lipitor) 80 mg QHS 03/20/20 21:00 04/05/20 21:09 80 MG Atropine Sulfate (ATROPINE 0.5mg SYRINGE) 0.5 mg PRN Q5MIN PRN 03/27/20 01:45 03/27/20 16:31 DC Barium Sulfate (Varibar Thin Liquid Apple) 148 gm 1X ONCE 04/05/20 11:00 04/05/20 11:04 DC 04/05/20 12:30 148 GM Chlorhexidine Gluconate (Peridex) 15 ml BID 03/26/20 21:00 03/28/20 11:44 DC 03/27/20 20:51 15 ML Clopidogrel Bisulfate (Plavix) 75 mg [id number] 03/20/20 12:00 04/06/20 08:45 75 MG Dexmedetomidine HCl 400 mcg/ Sodium Chloride 100 ml @ 0 mls/hr CONT PRN 03/27/20 01:45 04/05/20 18:53 DC 04/03/20 01:36 9 MLS/HR Docusate Sodium (Colace Solution) 100 mg BID 03/20/20 09:00 03/26/20 15:28 DC 03/26/20 08:35 100 MG Dopamine HCl/ Dextrose 250 ml @ 17.681 mls/ hr CONT PRN 03/20/20 04:30 Enoxaparin Sodium (Lovenox 40mg Syringe) 40 mg Q24H 04/02/20 12:00 04/06/20 08:41 40 MG Epinephrine HCl (EPINEPHrine SYRINGE) 1 mg STK-MED ONCE 03/29/20 12:00 03/30/20 13:02 DC Etomidate (Amidate) 20 mg STK-MED ONCE 03/26/20 23:34 03/26/20 23:35 DC Famotidine (Pepcid Vial) 20 mg BID 03/20/20 11:00 03/20/20 12:35 DC Fentanyl Citrate 30 ml @ 0 mls/hr CONT PRN 03/26/20 19:15 UNV Fentanyl Citrate (Fentanyl 2ml Vial) 50 mcg PRN Q1HR PRN 03/26/20 19:15 04/04/20 02:45 50 MCG Furosemide (Lasix) 40 mg DAILY 03/22/20 11:00 04/06/20 08:40 40 MG Haloperidol Lactate (Haldol Inj) 5 mg PRN Q6HRS PRN 03/23/20 21:00 03/24/20 08:52 DC Heparin Sodium (Porcine) (Heparin Sodium) 2,400 unit PRN Q6HRS PRN 03/20/20 04:30 03/22/20 10:15 DC 03/21/20 14:17 2,400 UNIT Heparin Sodium/ Dextrose 250 ml @ 0 mls/hr CONT PRN 03/20/20 04:30 03/22/20 10:15 DC 03/21/20 22:15 19.8 MLS/HR Heparin Sodium/ Sodium Chloride (HEPARIN for ARTERIAL LINE FLUSH) 1,000 unit 1X ONCE 03/27/20 10:00 03/27/20 10:01 DC 03/27/20 10:00 1,000 UNIT Info (CONTRAST GIVEN -- Rx MONITORING) 1 each PRN DAILY PRN 03/27/20 10:00 03/29/20 09:59 DC Info (Icu Electrolyte Protocol) 1 ea DAILY 03/21/20 09:00 04/05/20 18:53 DC 04/05/20 09:00 1 EA Info (Non-Icu Electrolyte Protocol) 1 ea CONT PRN PRN 04/05/20 19:00 Info (Tpn Per Pharmacy) 1 each PRN DAILY PRN 04/04/20 11:00 04/05/20 10:41 1 EACH Iodixanol (Visipaque 320) 100 ml 1X ONCE 03/27/20 10:00 03/27/20 10:01 DC 03/27/20 11:05 107 ML Labetalol HCl (Normodyne Iv Push) 10 mg PRN Q2HR PRN 03/26/20 19:15 Lidocaine HCl (Lidocaine 1% 20ml Vial) 20 ml 1X ONCE 03/27/20 10:00 03/27/20 10:01 DC 03/27/20 10:41 13 ML Lidocaine HCl (Lidocaine HCl 2% Abboject) 100 mg STK-MED ONCE 03/29/20 12:00 03/30/20 13:02 DC Linezolid/Dextrose 300 ml @ 300 mls/hr Q12HR 03/21/20 09:00 03/28/20 08:39 DC 03/28/20 08:19 300 MLS/HR Lorazepam (Ativan Inj) 1 mg PRN Q1HR PRN 03/20/20 04:45 03/26/20 15:29 DC 03/26/20 14:30 1 MG Magnesium Sulfate 50 ml @ 25 mls/hr 1X ONCE 04/02/20 12:00 04/02/20 13:59 DC 04/02/20 11:47 25 MLS/HR Metoprolol Tartrate (Lopressor Vial) 5 mg Q6HRS 04/05/20 10:00 04/06/20 05:49 5 MG Midazolam HCl 100 ml @ 0 mls/hr CONT PRN 03/26/20 19:15 04/05/20 18:53 DC 04/01/20 12:21 5 MLS/HR Milrinone Lactate/ Dextrose 100 ml @ 6.735 mls/ hr CONT PRN 03/30/20 15:30 04/01/20 20:33 6.735 MLS/HR Morphine Sulfate (Morphine Sulfate) 4 mg PRN Q1HR PRN 03/26/20 19:15 03/28/20 22:35 DC Nicardipine HCl 50 mg/Sodium Chloride 250 ml @ 25 mls/hr CONT PRN 04/02/20 12:00 04/04/20 17:16 12.5 MLS/HR Non-Formulary Medication (ABACAVIR/ DOLUTEGRAVIR/ LAMIVUDINE (Triumeq) tablet) 1 ea DAILY 03/20/20 17:00 04/03/20 08:16 1 EA Norepinephrine Bitartrate 8 mg/ Dextrose 258 ml @ 18.247 mls/ hr CONT PRN 03/20/20 04:15 03/28/20 19:12 18.247 MLS/HR Olanzapine (ZyPREXA ZYDIS) 5 mg PRN Q4HRS PRN 03/26/20 19:15 04/06/20 08:50 5 MG Ondansetron HCl (Zofran) 4 mg PRN Q6HRS PRN 03/20/20 10:30 04/04/20 05:24 4 MG Pantoprazole Sodium (PROTONIX VIAL for IV PUSH) 40 mg DAILYAC 03/20/20 12:30 04/06/20 08:39 40 MG Piperacillin Sod/ Tazobactam Sod (Zosyn Per Pharmacy) 1 each PRN DAILY PRN 03/20/20 09:30 04/04/20 10:19 DC Piperacillin Sod/ Tazobactam Sod 3.375 gm/Sodium Chloride 50 ml @ 100 mls/hr Q6HRS 03/20/20 10:00 04/04/20 08:17 DC 04/04/20 06:03 100 MLS/HR Potassium Bicarbonate (Potassium Effervescent Tablet) 40 meq 1X ONCE 04/02/20 09:30 04/02/20 09:31 DC 04/02/20 09:34 40 MEQ Potassium Chloride/Water 100 ml @ 100 mls/hr 1X ONCE 04/05/20 12:00 04/05/20 12:59 DC Propofol 100 ml @ 0 mls/hr CONT PRN 03/26/20 19:15 04/05/20 18:53 DC 04/03/20 05:44 18.7 MLS/HR Sodium Bicarbonate (Sodium Bicarb Adult 8.4% Syr) 50 meq STK-MED ONCE 03/26/20 21:00 03/27/20 19:23 DC Sodium Chloride (Normal Saline Flush) 3 ml QSHIFT PRN 03/20/20 10:30 Sodium Chloride 45 meq/Potassium Chloride 50 meq/ Potassium Phosphate 17 mmol/ Magnesium Sulfate 15 meq/ Multivitamins 5 ml/Zinc/Copper/ Manganese/ Selenium 1 ml/ Total Parenteral Nutrition/Amino Acids/Dextrose/ Fat Emulsion Intravenous 1,080 ml @ 45 mls/hr TPN CONT 04/05/20 22:00 04/06/20 21:59 04/05/20 22:34 45 MLS/HR Sodium Chloride 90 meq/Potassium Chloride 50 meq/ Potassium Phosphate 13.6 mmol/Magnesium Sulfate 15 meq/ Calcium Gluconate 10 meq/ Multivitamins 5 ml/Zinc/Copper/ Manganese/ Selenium 1 ml/ Total Parenteral Nutrition/Amino Acids/Dextrose/ Fat Emulsion Intravenous 1,512 ml @ 63 mls/hr TPN CONT 04/04/20 22:00 04/05/20 21:59 DC 04/04/20 20:50 63 MLS/HR Sodium Phosphate 15 mmol/Sodium Chloride 105 ml @ 105 mls/hr 1X ONCE 04/05/20 12:00 04/05/20 12:59 DC 04/05/20 13:18 105 MLS/HR Succinylcholine Chloride (Anectine) 200 mg STK-MED ONCE 03/26/20 23:34 03/26/20 23:35 DC Vancomycin HCl (Vancomycin Oral Solution) 125 mg BID 03/20/20 21:30 04/04/20 08:17 DC 04/03/20 08:17 125 MG Labs: Lab Laboratory Tests Test 04/06/20 06:00 Sodium Level 144 mmol/L (136-145) Potassium Level 3.3 mmol/L (3.5-5.1) Chloride Level 109 mmol/L (98-107) Carbon Dioxide Level 24 mmol/L (21-32) Anion Gap 11 (6-14) Blood Urea Nitrogen 9 mg/dL (8-26) Creatinine 0.8 mg/dL (0.7-1.3) Estimated GFR (Cockcroft-Gault) 122.8 Glucose Level 145 mg/dL (70-99) Calcium Level 9.4 mg/dL (8.5-10.1) Phosphorus Level 2.7 mg/dL (2.6-4.7) Magnesium Level 2.3 mg/dL (1.8-2.4) Objective: Assessment: 1. Fever, likely aspiration. Resolved 2. Witnessed cardiac arrest, status post defibrillation. 3. Leukocytosis and lactic acidosis. 4. Human immunodeficiency virus, CD4 496 March 2019 was 403 on 01/16 viral load less than 20 on 01/23,on Triumeq. 5. Acute hypoxic respiratory failure Extubated, reintubated Mar 26 6. History of ventricular tachycardia, Coronary artery disease, status post PCI. 7. Status post pacemaker for bradycardia 12/27 at [place]. 8. History of acute kidney injury, on hemodialysis in the past. 9. 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 10. Substance dependence. UDS positive for cocaine at outside hospital. 11. Hypertension/hyperlipidemia 12. Hypokalemia/hypomagnesemia. 13. H/O Chronic systolic congestive heart failure. 14. History of rectal abscess. 15. History of Necrotizing Pneumonia with Klebsiella at [facility] November 2019 16. V. fib arrest, torsades here on Mar 26 19. Severe cardiomyopathy 20. Anemia of chronic disease 21. History of noncompliance 22. Oropharyngeal dysphagia Plan: Plan of Care Monitor off antibiotics Continue Triumeq, Maintain aspiration precautions Continue supportive care Discussed with nursing. MILLY NICOLE MD Apr 06, 2020 09:58
--- NOTE | 2020-04-06 10:03 | PDOC ---
Date of Service: DATE: 04/06/20 TIME: 09:56 Subjective: Subjective: Says he needs to get up and take some of this stuff home. Objective: Objective: No GI concerns per nurse - confused - asking staff if they're "gonna go out tonight" and if he can "ride with them." Vital Signs: Vital Signs Date Time Temp Pulse Resp B/P (MAP) Pulse Ox O2 Delivery O2 Flow Rate FiO2 04/06/20 08:40 104 125/93 04/06/20 07:00 98.1 20 96 Room Air 98.1 04/05/20 08:00 2.0 Labs: Laboratory Tests Test 04/06/20 06:00 Sodium Level 144 mmol/L Potassium Level 3.3 mmol/L Chloride Level 109 mmol/L Carbon Dioxide Level 24 mmol/L Anion Gap 11 Blood Urea Nitrogen 9 mg/dL Creatinine 0.8 mg/dL Estimated GFR (Cockcroft-Gault) 122.8 Glucose Level 145 mg/dL Calcium Level 9.4 mg/dL Phosphorus Level 2.7 mg/dL Magnesium Level 2.3 mg/dL Imaging: Videoswallow 04/05 IMPRESSION: Dysphagia of the oral and pharyngeal phases. Aspiration observed with thin liquids by straw. Please refer to speech pathology notes for complete details and recommendations. IMPRESSIONS: Laryngeal dysfunction s/p 15 day intubation w/breathy phonation, cough and impaired airway closure during swallow. Reduced airway closure contributed to deep penetration and silent aspiration of thin liquids VIA STRAW. Transient penetration (ejected at swallow) was inconsistently present w/cup drinks of thin. Puree and solids were inefficient and may result in pt requiring increased time for meals and/or requiring supplemental oral nutrition. If supplemental oral nutrition is indicated, liquid form would be most efficient (WITHOUT straw). Anticipate safe intake for meds and nutrition. RECOMMENDATIONS: Regular diet w/thin liquids. Written precautions sent to unit. NO straws. Sit up at 90* for all po intake. Meds 1 at a time w/sips of liquid. THONY Monterroso. Diet orders entered. Images from study reviewed w/pt and results explained. Will f/u per POC. CXR 04/06 IMPRESSION: Interval extubation and removal of nasogastric tube. Interval improved aeration of the lungs without residual pleural effusions, pulmonary vascular congestion or pneumothorax. PE: GEN: NAD - has breakfast tray LUNGS: CTAB HEART: RRR ABD: soft, non-tender NEURO/PSYCH: confused A/P: S/p arrests, CAD, CHF, anoxic encephalopathy, substance abuse Anemia - stable H/o GI bleeding - none here COVID negative -- Improved/stable from GI standpoint. Change to PO PPI. Justicifation of Admission Dx: Justifications for Admission: Justification of Admission Dx: Yes YNES CLEARY Apr 06, 2020 10:03
--- NOTE | 2020-04-06 10:16 | PDOC ---
[employer] PROGRESS NOTE Date of Service DOS: DATE: 04/06/20 TIME: 10:12 Chief Complaint Chief Complaint 0. Status post extubation 2 days ago 1. out of hospital arrest , witness cardiac arrest; Defibrillation // AMI ruled out. 2. H/o Vfib probable ischemic in nature, antiarrhythmics discontinued in past due to QTc prolongation of 600. 3. Acute hypoxic respiratory failure requiring vent support 4. CAD s/p PCI/BMS to the LCx 12/11/19. Treated with ASA,Brilinta initially, which was held due to recurrent GIB requiring transfusions.Due to recent PCI/BM S, Plavix was resumed while at [facility]. ASA was d/c'd 5. Chronic systolic CHF 6. ischemic cardiomyopathy LVEF 20-25%. 7. SSS s/p leadless PPM 8. Hypertension; // requiring pressor support 9. Hypokalemia, hypomagnesemia 10. H/o DAIJA requiringHD; renal function improvedand HD catheter removed 11. 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 HIV 13. Substance abuse; UDS + cocaine , ALCOHOL, TOBACCO 14. Leukocytosis, fevers. ? sepsis Covid negative. 15. H/o Vfib OOH arrest; probable ischemic in nature, antiarrhythmics discontinued in past due to QTc prolongation of 600. EKG at [facility] with QTc 507, 528. 16. Human immunodeficiency virus, CD4 was 403 on 01/16 viral load less than 20 on [facility]. 17. History of ventricular tachycardia, Coronary artery disease, status post PCI. 18. 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 19. hypernatremia, volume excess History of Present Illness History of Present Illness 04/06/2020 Patient seen and examined while sitting in a chair Patient is very soft-spoken DW PT DW RN Chart reviewed 04/05/2020 Patient seen and examined in the ICU He is still is very soft-spoken Discussed with RN Is going for swallow study at noon He is now off of his Cardene drip Getting metoprolol 5 mg IV every 6 as he cannot swallow well Also on IV TPN 04/04/2020 Patient seen and examined in the ICU He got extubated yesterday He is very weak soft-spoken probably confused Chart reviewed Discussed with RN He is on a Cardene drip 04/03/2020 Patient seen and examined in the ICU He remains intubated AC/20/500/40 percent with 5 of PEEP He has mitts on for his safety Has [place] to bedside drainage Has SCDs on Sedated with Dex fentanyl and propofol Has IV Zosyn hanging Chart reviewed Discussed with RN He remains critically ill 04/02/2020 Patient seen and examined in ICU He remains intubated Assist-control/20/2 500/40% FiO2 with 5 of PEEP Discussed with RN Chart reviewed Patient on milrinone drip He is also on propofol drip for sedation He remains critically ill Identification/Chief Complaint Chief Complaint admitted to icu , out of hospial arrest CAD s/p PCI/stent, cardiomyopathy, and prior cardiac arrest, presented secondary to cardiac arrest at home. Was at home with partner, Stevenson, watching television. Patient suddenly started breathing more deeply and began gasping for air. Eyes were wide and glassy. Was unresponsive. Partner was unable to feel pulse so he put him on the floor, called EMS and began chest compressions. Partner reports him drinking 3 malt beverages that evening while watching TV. No known sick contacts. EMS arrived within minutes. ROSC returned following one defibrillation. Although partner declined drug use, Narcan was administered en route due to pinpoint pupils. Limited effect from the Narcan. UDS was + for cocaine. IS COVID 19 PUI hx cardiac arrest on December 19, 2019. Patient was apparently found arrest in his car EMS noted in v-fib. ROSC was achieved following 1 defibrillation and 1 round of epi.//activated as STEMI with LBBB. Emergent cath notable for blockage of left circumflex. //PCI/BMS to the Left circumflex. 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 LVEF noted at 20-25%. Developed DAIJA due to cardiogenic shock. had multiple episodes of bradycardia/significant pauses mostly related to suctioning. then leadlessPPM placement.Treated for Klebsiella PNA as well. course further complicated by GIB requiring tranfusion. 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 Remains on vent, FiO2 40%, PEEP 5. Swelling noted to his right arm, will obtain ultrasound to evaluate. Discussed with RN, will attempt trial extubation tomorrow. 03/31 Patient seen in ICU. Afebrile. On vent FiO2 40%, PEEP 5. Hemoglobin 7.2 and holding steady. We will continue to monitor and transfuse <7. Antibiotics per ID. 03/30 Afebrile. On vent, FiO2 40%, PEEP 5. Patient needs AICD, but some significant complaints issues. I believe cardiology is to consult neurology for further input on this issue. Charts and labs reviewed. 03/29 Patient remains in ICU on vent. FiO2 40%, PEEP 5. Discussed with RN, episode of V-tach overnight. Cardiology to consider AICD. Will continue with antibiotics and diuresis. 03/28 Afebrile. No acute events overnight. On vent, FiO2 40%, PEEP 5. Potassium low today, will replace. Continue supportive care and antibiotics. Discussed with RN 03/27 Patient seen in ICU. Breathing on mechanical ventilator, FiO2 60%, PEEP 5. Patient failed extubation yesterday. Continue Zosyn, Zyvox, p.o. vancomycin. 03/26 Patient seen and evaluated in ICU. On vent FiO2 35%, PEEP 5. Afebrile. Continue Zosyn, Zyvox, and p.o. vancomycin. Chart and labs reviewed, discussed with RN. Vitals/I&O Vitals/I&O: Vital Signs Date Time Temp Pulse Resp B/P (MAP) Pulse Ox O2 Delivery O2 Flow Rate FiO2 04/06/20 08:40 104 125/93 04/06/20 07:00 98.1 20 96 Room Air 98.1 04/05/20 08:00 2.0 I & O 04/05/20 04/05/20 04/06/20 15:00 23:00 07:00 Intake Total 120 ml 120 ml Output Total 975 ml 75 ml Balance -975 ml 45 ml 120 ml Physical Exam Physical Exam: GENERAL: alert awake male on nasal O2 HEENT: Normocephalic atraumatic pupils equal, reactive. NECK: Supple. LUNGS: Clear anteriorly. HEART: S1, S2, tachycardia. ABDOMEN: Obese, mildly distended. Bowel sounds present. EXTREMITIES: No edema or cyanosis. Superficial thrombophlebitis right upper extremity DERMATOLOGIC: Warm and dry. No generalized rash. NEUROLOGIC alert oriented x3 grossly nonfocal General: Alert, Cooperative, Other (Awake but confused) Heart: Regular rate, No murmurs Lungs: Clear Abdomen: Normal bowel sounds, No tenderness Extremities: No clubbing, No edema Skin: No rashes, No significant lesion Labs Labs: Laboratory Tests Test 04/06/20 06:00 Sodium Level 144 mmol/L (136-145) Potassium Level 3.3 mmol/L (3.5-5.1) Chloride Level 109 mmol/L (98-107) Carbon Dioxide Level 24 mmol/L (21-32) Anion Gap 11 (6-14) Blood Urea Nitrogen 9 mg/dL (8-26) Creatinine 0.8 mg/dL (0.7-1.3) Estimated GFR (Cockcroft-Gault) 122.8 Glucose Level 145 mg/dL (70-99) Calcium Level 9.4 mg/dL (8.5-10.1) Phosphorus Level 2.7 mg/dL (2.6-4.7) Magnesium Level 2.3 mg/dL (1.8-2.4) Review of Systems Review of Systems: 04/06/2020 Denies N/V, no ecchymosis Assessment and Plan Assessmemt and Plan 04/06/2020 A: -Post cardiac-arrest P: -Cardiac monitoring -PT OT ST - DVT prophylaxis - Home meds - TPN with encourage PO intake -D/c disposition pending Comment Review of Relevant I have reviewed the following items joel (where applicable) has been applied. Medications: Current Medications Medications (Trade) Dose Ordered Sig/Guy Route PRN Reason Start Time Stop Time Status Last Admin Dose Admin Sodium Phosphate 15 mmol/Sodium Chloride 105 ml @ 105 mls/hr 1X ONCE IV 04/05/20 12:00 04/05/20 12:59 DC 04/05/20 13:18 Sodium Chloride 45 meq/Potassium Chloride 50 meq/ Potassium Phosphate 17 mmol/ Magnesium Sulfate 15 meq/ Multivitamins 5 ml/Zinc/Copper/ Manganese/ Selenium 1 ml/ Total Parenteral Nutrition/Amino Acids/Dextrose/ Fat Emulsion Intravenous 1,080 ml @ 45 mls/hr TPN CONT IV 04/05/20 22:00 04/06/20 21:59 04/05/20 22:34 Barium Sulfate (Varibar Thin Liquid Apple) 148 gm 1X ONCE PO 04/05/20 11:00 04/05/20 11:04 DC 04/05/20 12:30 Justifications for Admission Other Justification CARDIAC ARREST SERA GREGORIO III DO Apr 06, 2020 10:15
[2020-04-06 11:00] VITALS: BP 122/93
[2020-04-06] MEDS: METOPROLOL SUCC 24HR ER 50 MG TAB.ER.24H. PO SCH (13:30)
--- NOTE | 2020-04-06 14:05 | NUR ---
SS following up with discharge planning. SS reviewed pt chart and discussed with pt RN. Pt transferred to room 203. Pt is currently on room air. HIV positive. COVID19 negative. Pt currently on room air. Life Vest in place. Pt passed video swallow and now on cardiac diet. TPN being discontinued soon. PT/OT recommended acute rehabilitation. Pt has [place] Medicaid. SS met with pt and pt's partner in room to discuss discharge planning and acute rehabilitation. Pt and pt's partner agreeable to acute rehabilitation. They requested that SS phoned and fax referrals in order to #1. [facility], ; fax [phone], #2. [facility], ; fax [phone], and #3. [facility], ; fax [phone]. SS phoned and faxed referrals to all three facilities as requested. SS will continue to follow for discharge planning.
--- NOTE | 2020-04-06 14:27 | PDOC ---
URSZULA MONTE [employer]EN[employer]IFUGAL WAX MOLDER 04/06/20 1427: CARDIO Progress Notes Date and Time Date of Service 04/06/2020 Time of Evaluation 1000 Subjective Subjective: No Chest Pain, No shortness of breath, No Palpitations Vitals Vitals Vital Signs Date Time Temp Pulse Resp B/P (MAP) Pulse Ox O2 Delivery O2 Flow Rate FiO2 04/06/20 13:30 95 122/93 04/06/20 11:00 97.8 20 98 Room Air 97.8 04/06/20 08:00 2.0 Weight Weight [ ] Input and Output Intake and Output Intake and Output 04/06/20 07:00 Intake Total 240 ml Output Total 1050 ml Balance -810 ml Intake Oral 240 ml Output Urine Total 1050 ml # Bowel Movements 3 Laboratory Labs Laboratory Tests Test 04/06/20 06:00 Sodium Level 144 mmol/L (136-145) Potassium Level 3.3 mmol/L (3.5-5.1) Chloride Level 109 mmol/L (98-107) Carbon Dioxide Level 24 mmol/L (21-32) Anion Gap 11 (6-14) Blood Urea Nitrogen 9 mg/dL (8-26) Creatinine 0.8 mg/dL (0.7-1.3) Estimated GFR (Cockcroft-Gault) 122.8 Glucose Level 145 mg/dL (70-99) Calcium Level 9.4 mg/dL (8.5-10.1) Phosphorus Level 2.7 mg/dL (2.6-4.7) Magnesium Level 2.3 mg/dL (1.8-2.4) Microbiology Micro Microbiology 03/26/20 Urine Culture - Final, Complete 03/21/20 Gram Stain Evaluation - Final, Complete 03/21/20 Respiratory Culture - Final, Complete 03/20/20 Blood Culture - Final, Complete NO GROWTH AFTER 5 DAYS Physical Exam HEENT: Neck Supple W Full Motion Chest: Symmetric LUNGS: Other (diminished bases) Heart: RRR (SR/ST with PVCs) Abdomen: Soft N/T Extremities: No Edema Neurology: alert, follow commands, other (periods of confusion) Assessment Assessment 1. OOH, witness cardiac arrest; recurrent Torsades, VT arrest 07/21/20. LHC with patent LCx stent. No lesions needing intervention. Post extubation 3. Acute respiratory failure secondary to above; extubated, but reintubated following cardiac arrest due to sustained Torsades, VT 07/21/20. 4. H/o Vfib OOH arrest; probable ischemic in nature, antiarrhythmics disc ontinued in past due to QTc prolongation. 5. Acute on chronic systolic CHF: appears compensated 6. ICM; LVEF 20-25%. 7. CAD s/p PCI/BMS to the LCx 12/11/19. 8. SSS s/p leadless PPM implantation ([employer] Micra). Device check with normal function 04/02/20. 9. Leukocytosis, fevers. ? sepsis. better 10. Hypertension; controlled 11. H/o DAIJA requiringHD; renal function improvedand HD catheter removed 12. 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 Hgb 7.3 stable 13. HIV 14. Substance abuse; UDS + cocaine at [facility] 15. Noncompliance 16. Tobaccoism 17. Hypokalemia, hypomagnesemia: resolved 18. Encephalopathy: still having periods of confusion 19. Weakness, significant deconditioning Recommendations Now able to take PO. Start on toprol, lisinopril. Continue amiodarone for VT suppression Lasix therapy.Maintain K and Mg at least 4.0 and 2.0 respectively. 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 His partner has indicated intention to proceed treatments. Will plan for LifeVest upon discharge with consideration of AICD if patient establishes compliance and refrains from drug abuse Supportive care Smoking cessation SNU eval. Justicifation of Admission Dx: Justifications for Admission: Justification of Admission Dx: Yes SHYAM AJ MD 04/06/20 2965: CARDIO Progress Notes Plan Plan Pt. seen and examined. Agree with above CAREER AND TRANSITION TEACHER note. supportive care. URSZULA MONTE [employer]AL WAX MOLDER Apr 06, 2020 14:27 SHYAM AJ MD Apr 06, 2020 23:35
[2020-04-06] MEDS ORDERED: METOPROLOL SUCC 24HR ER 50 MG TAB.ER.24H. PO SCH (14:30)
[2020-04-06 15:00] VITALS: BP 115/85
[2020-04-06] MEDS: POTASSIUM PHOSPHATE DIBASIC 13.6 MMOL in IV NS 250 ML IV SCH ×2 (15:32→17:37)
--- NOTE | 2020-04-06 16:19 | NUR ---
SS following up with discharge planning. Pt clinically declined at [facility]. [facility] contacted SS and requested updates be sent on Thursday. They reported concern that pt would not be able to tolerate three hours of therapy a day. Not accepted at this time. SS will continue to follow for discharge planning.
--- NOTE | 2020-04-06 16:47 | NUR ---
SS following up with discharge planning. SS reviewed pt chart and discussed with pt RN. [facility] accepted pt and reported that they can accept on 04/09/2020. They are requesting COVID19 swab on Thursday morning. Pt's RN and nurse emergency crew supervisor notified. SS will continue to follow for discharge planning.
[2020-04-06 19:00] VITALS: BP 122/87
[2020-04-06] MEDS ORDERED: AMINO ACID IV SCH (22:00)
[2020-04-06] MEDS ORDERED: TOTAL PARENTERAL NUTRITION IV SCH (22:00)
[2020-04-06] MEDS ORDERED: DEXTROSE 70% IV SCH (22:00)
[2020-04-06] MEDS: ATORVASTATIN CALCIUM 40 MG TABLET. PO SCH (22:00)
[2020-04-06] MEDS ORDERED: [UNRECOGNIZED DRUG - OTHER] IV SCH (22:00)
[2020-04-06 23:30] VITALS: BP 126/91
[2020-04-06] MEDS ORDERED: HALOPERIDOL LACTATE 5 MG/ML VIAL. IVP PRN (23:30)
[2020-04-07 04:20] VITALS: BP 155/96
[2020-04-07 05:32] LABS: BASO # 0.1 x10^3/uL (0.0-0.2); BASO % 1 % (0-3); EOS # 0.2 x10^3/uL (0.0-0.7); EOS % 2 % (0-3); HEMATOCRIT 31.3 % (39.0-53.0); HEMOGLOBIN 9.7 g/dL (13.0-17.5); LYMPH # 3.5 x10^3/uL (1.0-4.8); LYMPH % 40 % (24-48); MEAN CORPUSCULAR HEMOGLOBIN 24 pg (25-35); MEAN CORPUSCULAR HGB CONC 31 g/dL (31-37); MEAN CORPUSCULAR VOLUME 77 fL (79-100); MONO # 0.8 x10^3/uL (0.0-1.1); MONO % 9 % (0-9); NEUT # 4.3 x10^3/uL (1.8-7.7); NEUT % 48 % (31-73); PLATELET COUNT 752 x10^3/uL (140-400); RED BLOOD COUNT 4.07 x10^6/uL (4.30-5.70); RED CELL DISTRIBUTION WIDTH 18.4 % (11.5-14.5); WHITE BLOOD COUNT 8.9 x10^3/uL (4.0-11.0)
[2020-04-07 05:49] LABS: ALBUMIN/GLOBULIN RATIO 0.6 (1.0-1.7); CALCIUM 8.7 mg/dL (8.5-10.1); GFR 94.9; POTASSIUM 3.4 mmol/L (3.5-5.1); TOTAL BILIRUBIN 0.3 mg/dL (0.2-1.0); TOTAL PROTEIN 8.4 g/dL (6.4-8.2)
[2020-04-07 07:00] VITALS: BP 125/52
--- NOTE | 2020-04-07 08:17 | PDOC ---
Infectious Disease Note Subjective: Subjective Patient denies any complaints Vital Signs: Vital Signs Vital Signs Date Time Temp Pulse Resp B/P (MAP) Pulse Ox O2 Delivery O2 Flow Rate FiO2 04/07/20 07:00 98.0 77 22 125/52 (76) 94 Room Air 98.0 04/06/20 08:00 2.0 Physical Exam: PHYSICAL EXAM GENERAL: alert awake male on nasal O2 HEENT: Normocephalic atraumatic pupils equal, reactive. NECK: Supple. LUNGS: Clear anteriorly. HEART: S1, S2, no murmurs ABDOMEN: Obese, mildly distended. Bowel sounds present. EXTREMITIES: No edema or cyanosis. Superficial thrombophlebitis right upper extremity DERMATOLOGIC: Warm and dry. No generalized rash. NEUROLOGIC alert oriented x3 grossly nonfocal Medications: Inpatient Meds: Current Medications Medications (Trade) Dose Ordered Sig/Guy Start Time Stop Time Status Last Admin Dose Admin Acetaminophen (Tylenol) 650 mg PRN Q6HRS PRN 03/20/20 09:00 03/27/20 20:51 650 MG Amino Acids/ Glycerin/ Electrolytes 1,000 ml @ 80 mls/hr [id number] 04/04/20 11:30 04/04/20 21:59 DC 04/04/20 11:00 80 MLS/HR Amiodarone HCl (Cordarone) 400 mg DAILY 03/30/20 09:00 04/06/20 08:40 400 MG Amiodarone HCl 150 mg/Dextrose 103 ml @ 618 mls/hr 1X ONCE 03/26/20 19:45 03/26/20 19:54 DC 03/26/20 19:44 618 MLS/HR Amiodarone HCl 450 mg/Dextrose 259 ml @ 16.7 mls/hr CONT PRN 03/27/20 03:00 03/27/20 18:16 DC 03/27/20 18:15 16.7 MLS/HR Atorvastatin Calcium (Lipitor) 80 mg QHS 03/20/20 21:00 04/06/20 22:00 80 MG Atropine Sulfate (ATROPINE 0.5mg SYRINGE) 0.5 mg PRN Q5MIN PRN 03/27/20 01:45 03/27/20 16:31 DC Barium Sulfate (Varibar Thin Liquid Apple) 148 gm 1X ONCE 04/05/20 11:00 04/05/20 11:04 DC 04/05/20 12:30 148 GM Chlorhexidine Gluconate (Peridex) 15 ml BID 03/26/20 21:00 03/28/20 11:44 DC 03/27/20 20:51 15 ML Clopidogrel Bisulfate (Plavix) 75 mg DAILYWBKFT 03/20/20 12:00 04/06/20 08:45 75 MG Dexmedetomidine HCl 400 mcg/ Sodium Chloride 100 ml @ 0 mls/hr CONT PRN 03/27/20 01:45 04/05/20 18:53 DC 04/03/20 01:36 9 MLS/HR Docusate Sodium (Colace Solution) 100 mg BID 03/20/20 09:00 03/26/20 15:28 DC 03/26/20 08:35 100 MG Dopamine HCl/ Dextrose 250 ml @ 17.681 mls/ hr CONT PRN 03/20/20 04:30 Enoxaparin Sodium (Lovenox 40mg Syringe) 40 mg Q24H 04/02/20 12:00 04/06/20 08:41 40 MG Epinephrine HCl (EPINEPHrine SYRINGE) 1 mg STK-MED ONCE 03/29/20 12:00 03/30/20 13:02 DC Etomidate (Amidate) 20 mg STK-MED ONCE 03/26/20 23:34 03/26/20 23:35 DC Famotidine (Pepcid Vial) 20 mg BID 03/20/20 11:00 03/20/20 12:35 DC Fentanyl Citrate 30 ml @ 0 mls/hr CONT PRN 03/26/20 19:15 UNV Fentanyl Citrate (Fentanyl 2ml Vial) 50 mcg PRN Q1HR PRN 03/26/20 19:15 04/04/20 02:45 50 MCG Furosemide (Lasix) 40 mg DAILY 03/22/20 11:00 04/06/20 08:40 40 MG Haloperidol Lactate (Haldol Inj) 5 mg PRN Q8HRS PRN 04/06/20 23:30 Heparin Sodium (Porcine) (Heparin Sodium) 2,400 unit PRN Q6HRS PRN 03/20/20 04:30 03/22/20 10:15 DC 03/21/20 14:17 2,400 UNIT Heparin Sodium/ Dextrose 250 ml @ 0 mls/hr CONT PRN 03/20/20 04:30 03/22/20 10:15 DC 03/21/20 22:15 19.8 MLS/HR Heparin Sodium/ Sodium Chloride (HEPARIN for ARTERIAL LINE FLUSH) 1,000 unit 1X ONCE 03/27/20 10:00 03/27/20 10:01 DC 03/27/20 10:00 1,000 UNIT Info (CONTRAST GIVEN -- Rx MONITORING) 1 each PRN DAILY PRN 03/27/20 10:00 03/29/20 09:59 DC Info (Icu Electrolyte Protocol) 1 ea DAILY 03/21/20 09:00 04/05/20 18:53 DC 04/05/20 09:00 1 EA Info (Non-Icu Electrolyte Protocol) 1 ea CONT PRN PRN 04/05/20 19:00 Info (Tpn Per Pharmacy) 1 each PRN DAILY PRN 04/04/20 11:00 04/06/20 13:20 DC 04/05/20 10:41 1 EACH Iodixanol (Visipaque 320) 100 ml 1X ONCE 03/27/20 10:00 03/27/20 10:01 DC 03/27/20 11:05 107 ML Labetalol HCl (Normodyne Iv Push) 10 mg PRN Q2HR PRN 03/26/20 19:15 Lidocaine HCl (Lidocaine 1% 20ml Vial) 20 ml 1X ONCE 03/27/20 10:00 03/27/20 10:01 DC 03/27/20 10:41 13 ML Lidocaine HCl (Lidocaine HCl 2% Abboject) 100 mg STK-MED ONCE 03/29/20 12:00 03/30/20 13:02 DC Linezolid/Dextrose 300 ml @ 300 mls/hr Q12HR 03/21/20 09:00 03/28/20 08:39 DC 03/28/20 08:19 300 MLS/HR Lisinopril (Prinivil) 5 mg DAILY 04/07/20 09:00 Lorazepam (Ativan Inj) 2 mg PRN Q4HRS PRN 04/06/20 23:30 Magnesium Sulfate 50 ml @ 25 mls/hr 1X ONCE 04/02/20 12:00 04/02/20 13:59 DC 04/02/20 11:47 25 MLS/HR Metoprolol Succinate (Toprol Xl) 50 mg DAILY 04/06/20 14:30 04/06/20 14:30 50 MG Metoprolol Tartrate (Lopressor Vial) 5 mg Q6HRS 04/05/20 10:00 04/06/20 11:55 DC 04/06/20 05:49 5 MG Midazolam HCl 100 ml @ 0 mls/hr CONT PRN 03/26/20 19:15 04/05/20 18:53 DC 04/01/20 12:21 5 MLS/HR Milrinone Lactate/ Dextrose 100 ml @ 6.735 mls/ hr CONT PRN 03/30/20 15:30 04/06/20 14:23 DC 04/01/20 20:33 6.735 MLS/HR Morphine Sulfate (Morphine Sulfate) 4 mg PRN Q1HR PRN 03/26/20 19:15 03/28/20 22:35 DC Nicardipine HCl 50 mg/Sodium Chloride 250 ml @ 25 mls/hr CONT PRN 04/02/20 12:00 04/06/20 14:23 DC 04/04/20 17:16 12.5 MLS/HR Non-Formulary Medication (ABACAVIR/ DOLUTEGRAVIR/ LAMIVUDINE (Triumeq) tablet) 1 ea DAILY 03/20/20 17:00 04/06/20 09:00 1 EA Norepinephrine Bitartrate 8 mg/ Dextrose 258 ml @ 18.247 mls/ hr CONT PRN 03/20/20 04:15 04/06/20 10:08 DC 03/28/20 19:12 18.247 MLS/HR Olanzapine (ZyPREXA ZYDIS) 5 mg PRN Q4HRS PRN 03/26/20 19:15 04/06/20 22:11 5 MG Ondansetron HCl (Zofran) 4 mg PRN Q6HRS PRN 03/20/20 10:30 04/04/20 05:24 4 MG Pantoprazole Sodium (PROTONIX VIAL for IV PUSH) 40 mg DAILYAC 03/20/20 12:30 04/06/20 10:06 DC 04/06/20 08:39 40 MG Pantoprazole Sodium (Protonix) 40 mg DAILYAC 04/07/20 07:30 Piperacillin Sod/ Tazobactam Sod (Zosyn Per Pharmacy) 1 each PRN DAILY PRN 03/20/20 09:30 04/04/20 10:19 DC Piperacillin Sod/ Tazobactam Sod 3.375 gm/Sodium Chloride 50 ml @ 100 mls/hr Q6HRS 03/20/20 10:00 04/04/20 08:17 DC 04/04/20 06:03 100 MLS/HR Potassium Bicarbonate (Potassium Effervescent Tablet) 40 meq 1X ONCE 04/02/20 09:30 04/02/20 09:31 DC 04/02/20 09:34 40 MEQ Potassium Chloride 70 meq/ Potassium Phosphate 17 mmol/ Magnesium Sulfate 15 meq/ Multivitamins 5 ml/Zinc/Copper/ Manganese/ Selenium 1 ml/ Total Parenteral Nutrition/Amino Acids/Dextrose/ Fat Emulsion Intravenous 1,080 ml @ 45 mls/hr TPN CONT 04/06/20 22:00 04/06/20 13:22 DC Potassium Chloride/Water 100 ml @ 100 mls/hr 1X ONCE 04/05/20 12:00 04/05/20 12:59 DC Potassium Phosphate 13.6 mmol/Sodium Chloride 254.5333 ml @ 127.... Q2H 04/06/20 14:00 04/06/20 17:59 DC 04/06/20 17:37 127.267 MLS/HR Propofol 100 ml @ 0 mls/hr CONT PRN 03/26/20 19:15 04/05/20 18:53 DC 04/03/20 05:44 18.7 MLS/HR Sodium Bicarbonate (Sodium Bicarb Adult 8.4% Syr) 50 meq STK-MED ONCE 03/26/20 21:00 03/27/20 19:23 DC Sodium Chloride (Normal Saline Flush) 3 ml QSHIFT PRN 03/20/20 10:30 Sodium Chloride 45 meq/Potassium Chloride 50 meq/ Potassium Phosphate 17 mmol/ Magnesium Sulfate 15 meq/ Multivitamins 5 ml/Zinc/Copper/ Manganese/ Selenium 1 ml/ Total Parenteral Nutrition/Amino Acids/Dextrose/ Fat Emulsion Intravenous 1,080 ml @ 45 mls/hr TPN CONT 04/05/20 22:00 04/06/20 15:46 DC 04/05/20 22:34 45 MLS/HR Sodium Chloride 90 meq/Potassium Chloride 50 meq/ Potassium Phosphate 13.6 mmol/Magnesium Sulfate 15 meq/ Calcium Gluconate 10 meq/ Multivitamins 5 ml/Zinc/Copper/ Manganese/ Selenium 1 ml/ Total Parenteral Nutrition/Amino Acids/Dextrose/ Fat Emulsion Intravenous 1,512 ml @ 63 mls/hr TPN CONT 04/04/20 22:00 04/05/20 21:59 DC 04/04/20 20:50 63 MLS/HR Sodium Phosphate 15 mmol/Sodium Chloride 105 ml @ 105 mls/hr 1X ONCE 04/05/20 12:00 04/05/20 12:59 DC 04/05/20 13:18 105 MLS/HR Succinylcholine Chloride (Anectine) 200 mg STK-MED ONCE 03/26/20 23:34 03/26/20 23:35 DC Vancomycin HCl (Vancomycin Oral Solution) 125 mg BID 03/20/20 21:30 04/04/20 08:17 DC 04/03/20 08:17 125 MG Labs: Lab Laboratory Tests Test 04/07/20 04:50 White Blood Count 8.9 x10^3/uL (4.0-11.0) Red Blood Count 4.07 x10^6/uL (4.30-5.70) Hemoglobin 9.7 g/dL (13.0-17.5) Hematocrit 31.3 % (39.0-53.0) Mean Corpuscular Volume 77 fL (79-100) Mean Corpuscular Hemoglobin 24 pg (25-35) Mean Corpuscular Hemoglobin Concent 31 g/dL (31-37) Red Cell Distribution Width 18.4 % (11.5-14.5) Platelet Count 752 x10^3/uL (140-400) Neutrophils (%) (Auto) 48 % (31-73) Lymphocytes (%) (Auto) 40 % (24-48) Monocytes (%) (Auto) 9 % (0-9) Eosinophils (%) (Auto) 2 % (0-3) Basophils (%) (Auto) 1 % (0-3) Neutrophils # (Auto) 4.3 x10^3/uL (1.8-7.7) Lymphocytes # (Auto) 3.5 x10^3/uL (1.0-4.8) Monocytes # (Auto) 0.8 x10^3/uL (0.0-1.1) Eosinophils # (Auto) 0.2 x10^3/uL (0.0-0.7) Basophils # (Auto) 0.1 x10^3/uL (0.0-0.2) Sodium Level 142 mmol/L (136-145) Potassium Level 3.4 mmol/L (3.5-5.1) Chloride Level 109 mmol/L (98-107) Carbon Dioxide Level 22 mmol/L (21-32) Anion Gap 11 (6-14) Blood Urea Nitrogen 13 mg/dL (8-26) Creatinine 1.0 mg/dL (0.7-1.3) Estimated GFR (Cockcroft-Gault) 94.9 BUN/Creatinine Ratio 13 (6-20) Glucose Level 111 mg/dL (70-99) Calcium Level 8.7 mg/dL (8.5-10.1) Total Bilirubin 0.3 mg/dL (0.2-1.0) Aspartate Amino Transf (AST/SGOT) 34 U/L (15-37) Alanine Aminotransferase (ALT/SGPT) 25 U/L (16-63) Alkaline Phosphatase 75 U/L (46-116) Total Protein 8.4 g/dL (6.4-8.2) Albumin 3.0 g/dL (3.4-5.0) Albumin/Globulin Ratio 0.6 (1.0-1.7) Objective: Assessment: 1. Fever, likely aspiration. Resolved 2. Witnessed cardiac arrest, status post defibrillation. 3. Leukocytosis and lactic acidosis. 4. Human immunodeficiency virus, CD4 496 March 2019 was 403 on 01/16 viral load less than 20 on 01/23,on Triumeq. 5. Acute hypoxic respiratory failure Extubated, reintubated Mar 26 6. History of ventricular tachycardia, Coronary artery disease, status post PCI. 7. Status post pacemaker for bradycardia 12/27 at [facility] [place] [facility]. 8. History of acute kidney injury, on hemodialysis in the past. 9. 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 10. Substance dependence. UDS positive for cocaine at outside hospital. 11. Hypertension/hyperlipidemia 12. Hypokalemia/hypomagnesemia. 13. H/O Chronic systolic congestive heart failure. 14. History of rectal abscess. 15. History of Necrotizing Pneumonia with Klebsiella at [facility] November 2019 16. V. fib arrest, torsades here on [place] 4 19. Severe cardiomyopathy 20. Anemia of chronic disease 21. History of noncompliance 22. Oropharyngeal dysphagia,hoarseness of voice,chronic Plan: Plan of Care Monitor off antibiotics Continue Triumeq, Maintain aspiration precautions Continue supportive care Discussed with nursing. MILLY NICOLE MD Apr 07, 2020 08:17
[2020-04-07] MEDS: ABACAVIR PO SCH (09:00)
[2020-04-07] MEDS: DOLUTEGRAVIR PO SCH (09:00)
[2020-04-07] MEDS: LAMIVUDINE PO SCH (09:00)
--- NOTE | 2020-04-07 10:43 | PDOC ---
GENERAL General: Patient examined chart reviewed discussed with nursing. Today's hospital day 19 for this patient with anoxic encephalopathy after a V. fib cardiac arrest in the setting of chronic cocaine use, HIV, and recurrent severe infections. He has had very slow clinical progress. Nursing tells me that plan is for discharge to senior living on Thursday to continue his rehabilitation. He has been quite confused and overall very weak but is well managed on his current regimen. I appreciate subspecialty support. We will continue current management otherwise. Problems: (1) Anoxic encephalopathy (2) HIV (human immunodeficiency virus infection) (3) Failure to thrive in adult (4) Cardiac arrest (5) Chronic systolic (congestive) heart failure VITAL SIGNS Vital Signs/I&O: Vital Signs Date Time Temp Pulse Resp B/P (MAP) Pulse Ox O2 Delivery O2 Flow Rate FiO2 04/07/20 08:00 Room Air 2.0 04/07/20 07:00 98.0 77 22 125/52 (76) 94 98.0 I & O 04/06/20 04/06/20 04/07/20 15:00 23:00 07:00 Intake Total 100 ml 170 ml Output Total 550 ml 300 ml 600 ml Balance -550 ml -200 ml -430 ml In general the patient is laying in bed conversant but does not seem to be following along with the thread of the conversation. Tells me he wants to leave. He is not in any acute distress HEENT exam is unremarkable for acute abnormality Neck is soft and supple no adenopathy or thyromegaly noted Chest clear to auscultation Heart S1-S2 normal regular rate and rhythm no murmurs or gallops are noted Abdomen soft nontender nondistended no masses organomegaly noted Extremity exam is unremarkable for acute abnormality. He is weak throughout. ALLERGIES Allergies: Allergies Coded Allergies Type Severity Reaction Last Updated Verified No Known Drug Allergies 01/30/20 No MEDS Medications: Current Medications Medications (Trade) Dose Ordered Sig/Guy Start Time Stop Time Status Last Admin Dose Admin Acetaminophen (Tylenol) 650 mg PRN Q6HRS PRN 03/20/20 09:00 03/27/20 20:51 Amino Acids/ Glycerin/ Electrolytes 1,000 ml @ 80 mls/hr [id number] 04/04/20 11:30 04/04/20 21:59 DC 04/04/20 11:00 Amiodarone HCl (Cordarone) 400 mg DAILY 03/30/20 09:00 04/06/20 08:40 Amiodarone HCl 150 mg/Dextrose 103 ml @ 618 mls/hr 1X ONCE 03/26/20 19:45 03/26/20 19:54 DC 03/26/20 19:44 Amiodarone HCl 450 mg/Dextrose 259 ml @ 16.7 mls/hr CONT PRN 03/27/20 03:00 03/27/20 18:16 DC 03/27/20 18:15 Atorvastatin Calcium (Lipitor) 80 mg QHS 03/20/20 21:00 04/06/20 22:00 Atropine Sulfate (ATROPINE 0.5mg SYRINGE) 0.5 mg PRN Q5MIN PRN 03/27/20 01:45 03/27/20 16:31 DC Barium Sulfate (Varibar Thin Liquid Apple) 148 gm 1X ONCE 04/05/20 11:00 04/05/20 11:04 DC 04/05/20 12:30 Chlorhexidine Gluconate (Peridex) 15 ml BID 03/26/20 21:00 03/28/20 11:44 DC 03/27/20 20:51 Clopidogrel Bisulfate (Plavix) 75 mg DAILYWBKFT 03/20/20 12:00 04/06/20 08:45 Dexmedetomidine HCl 400 mcg/ Sodium Chloride 100 ml @ 0 mls/hr CONT PRN 03/27/20 01:45 04/05/20 18:53 DC 04/03/20 01:36 Docusate Sodium (Colace Solution) 100 mg BID 03/20/20 09:00 03/26/20 15:28 DC 03/26/20 08:35 Dopamine HCl/ Dextrose 250 ml @ 17.681 mls/ hr CONT PRN 03/20/20 04:30 Enoxaparin Sodium (Lovenox 40mg Syringe) 40 mg Q24H 04/02/20 12:00 04/06/20 08:41 Epinephrine HCl (EPINEPHrine SYRINGE) 1 mg STK-MED ONCE 03/29/20 12:00 03/30/20 13:02 DC Etomidate (Amidate) 20 mg STK-MED ONCE 03/26/20 23:34 03/26/20 23:35 DC Famotidine (Pepcid Vial) 20 mg BID 03/20/20 11:00 03/20/20 12:35 DC Fentanyl Citrate 30 ml @ 0 mls/hr CONT PRN 03/26/20 19:15 UNV Fentanyl Citrate (Fentanyl 2ml Vial) 50 mcg PRN Q1HR PRN 03/26/20 19:15 04/04/20 02:45 Furosemide (Lasix) 40 mg DAILY 03/22/20 11:00 04/06/20 08:40 Haloperidol Lactate (Haldol Inj) 5 mg PRN Q8HRS PRN 04/06/20 23:30 Heparin Sodium (Porcine) (Heparin Sodium) 2,400 unit PRN Q6HRS PRN 03/20/20 04:30 03/22/20 10:15 DC 03/21/20 14:17 Heparin Sodium/ Dextrose 250 ml @ 0 mls/hr CONT PRN 03/20/20 04:30 03/22/20 10:15 DC 03/21/20 22:15 Heparin Sodium/ Sodium Chloride (HEPARIN for ARTERIAL LINE FLUSH) 1,000 unit 1X ONCE 03/27/20 10:00 03/27/20 10:01 DC 03/27/20 10:00 Info (CONTRAST GIVEN -- Rx MONITORING) 1 each PRN DAILY PRN 03/27/20 10:00 03/29/20 09:59 DC Info (Icu Electrolyte Protocol) 1 ea DAILY 03/21/20 09:00 04/05/20 18:53 DC 04/05/20 09:00 Info (Non-Icu Electrolyte Protocol) 1 ea CONT PRN PRN 04/05/20 19:00 Info (Tpn Per Pharmacy) 1 each PRN DAILY PRN 04/04/20 11:00 04/06/20 13:20 DC 04/05/20 10:41 Iodixanol (Visipaque 320) 100 ml 1X ONCE 03/27/20 10:00 03/27/20 10:01 DC 03/27/20 11:05 Labetalol HCl (Normodyne Iv Push) 10 mg PRN Q2HR PRN 03/26/20 19:15 Lidocaine HCl (Lidocaine 1% 20ml Vial) 20 ml 1X ONCE 03/27/20 10:00 03/27/20 10:01 DC 03/27/20 10:41 Lidocaine HCl (Lidocaine HCl 2% Abboject) 100 mg STK-MED ONCE 03/29/20 12:00 03/30/20 13:02 DC Linezolid/Dextrose 300 ml @ 300 mls/hr Q12HR 03/21/20 09:00 03/28/20 08:39 DC 03/28/20 08:19 Lisinopril (Prinivil) 5 mg DAILY 04/07/20 09:00 Lorazepam (Ativan Inj) 2 mg PRN Q4HRS PRN 04/06/20 23:30 Magnesium Sulfate 50 ml @ 25 mls/hr 1X ONCE 04/02/20 12:00 04/02/20 13:59 DC 04/02/20 11:47 Metoprolol Succinate (Toprol Xl) 50 mg DAILY 04/06/20 14:30 04/06/20 14:30 Metoprolol Tartrate (Lopressor Vial) 5 mg Q6HRS 04/05/20 10:00 04/06/20 11:55 DC 04/06/20 05:49 Midazolam HCl 100 ml @ 0 mls/hr CONT PRN 03/26/20 19:15 04/05/20 18:53 DC 04/01/20 12:21 Milrinone Lactate/ Dextrose 100 ml @ 6.735 mls/ hr CONT PRN 03/30/20 15:30 04/06/20 14:23 DC 04/01/20 20:33 Morphine Sulfate (Morphine Sulfate) 4 mg PRN Q1HR PRN 03/26/20 19:15 03/28/20 22:35 DC Nicardipine HCl 50 mg/Sodium Chloride 250 ml @ 25 mls/hr CONT PRN 04/02/20 12:00 04/06/20 14:23 DC 04/04/20 17:16 Non-Formulary Medication (ABACAVIR/ DOLUTEGRAVIR/ LAMIVUDINE (Triumeq) tablet) 1 ea DAILY 03/20/20 17:00 04/06/20 09:00 Norepinephrine Bitartrate 8 mg/ Dextrose 258 ml @ 18.247 mls/ hr CONT PRN 03/20/20 04:15 04/06/20 10:08 DC 03/28/20 19:12 Olanzapine (ZyPREXA ZYDIS) 5 mg PRN Q4HRS PRN 03/26/20 19:15 04/06/20 22:11 Ondansetron HCl (Zofran) 4 mg PRN Q6HRS PRN 03/20/20 10:30 04/04/20 05:24 Pantoprazole Sodium (PROTONIX VIAL for IV PUSH) 40 mg DAILYAC 03/20/20 12:30 04/06/20 10:06 DC 04/06/20 08:39 Pantoprazole Sodium (Protonix) 40 mg DAILYAC 04/07/20 07:30 Piperacillin Sod/ Tazobactam Sod (Zosyn Per Pharmacy) 1 each PRN DAILY PRN 03/20/20 09:30 04/04/20 10:19 DC Piperacillin Sod/ Tazobactam Sod 3.375 gm/Sodium Chloride 50 ml @ 100 mls/hr Q6HRS 03/20/20 10:00 04/04/20 08:17 DC 04/04/20 06:03 Potassium Bicarbonate (Potassium Effervescent Tablet) 40 meq 1X ONCE 04/02/20 09:30 04/02/20 09:31 DC 04/02/20 09:34 Potassium Chloride 70 meq/ Potassium Phosphate 17 mmol/ Magnesium Sulfate 15 meq/ Multivitamins 5 ml/Zinc/Copper/ Manganese/ Selenium 1 ml/ Total Parenteral Nutrition/Amino Acids/Dextrose/ Fat Emulsion Intravenous 1,080 ml @ 45 mls/hr TPN CONT 04/06/20 22:00 04/06/20 13:22 DC Potassium Chloride/Water 100 ml @ 100 mls/hr 1X ONCE 04/05/20 12:00 04/05/20 12:59 DC Potassium Phosphate 13.6 mmol/Sodium Chloride 254.5333 ml @ 127.... Q2H 04/06/20 14:00 04/06/20 17:59 DC 04/06/20 17:37 Propofol 100 ml @ 0 mls/hr CONT PRN 03/26/20 19:15 04/05/20 18:53 DC 04/03/20 05:44 Sodium Bicarbonate (Sodium Bicarb Adult 8.4% Syr) 50 meq STK-MED ONCE 03/26/20 21:00 03/27/20 19:23 DC Sodium Chloride (Normal Saline Flush) 3 ml QSHIFT PRN 03/20/20 10:30 Sodium Chloride 45 meq/Potassium Chloride 50 meq/ Potassium Phosphate 17 mmol/ Magnesium Sulfate 15 meq/ Multivitamins 5 ml/Zinc/Copper/ Manganese/ Selenium 1 ml/ Total Parenteral Nutrition/Amino Acids/Dextrose/ Fat Emulsion Intravenous 1,080 ml @ 45 mls/hr TPN CONT 04/05/20 22:00 04/06/20 15:46 DC 04/05/20 22:34 Sodium Chloride 90 meq/Potassium Chloride 50 meq/ Potassium Phosphate 13.6 mmol/Magnesium Sulfate 15 meq/ Calcium Gluconate 10 meq/ Multivitamins 5 ml/Zinc/Copper/ Manganese/ Selenium 1 ml/ Total Parenteral Nutrition/Amino Acids/Dextrose/ Fat Emulsion Intravenous 1,512 ml @ 63 mls/hr TPN CONT 04/04/20 22:00 04/05/20 21:59 DC 04/04/20 20:50 Sodium Phosphate 15 mmol/Sodium Chloride 105 ml @ 105 mls/hr 1X ONCE 04/05/20 12:00 04/05/20 12:59 DC 04/05/20 13:18 Succinylcholine Chloride (Anectine) 200 mg STK-MED ONCE 03/26/20 23:34 03/26/20 23:35 DC Vancomycin HCl (Vancomycin Oral Solution) 125 mg BID 03/20/20 21:30 04/04/20 08:17 DC 04/03/20 08:17 Current Medications Medications (Trade) Dose Ordered Sig/Guy Route PRN Reason Start Time Stop Time Status Last Admin Dose Admin Metoprolol Succinate (Toprol Xl) 50 mg DAILY PO 04/06/20 12:30 04/06/20 13:30 Potassium Phosphate 13.6 mmol/Sodium Chloride 254.5333 ml @ 127.... Q2H IV 04/06/20 14:00 04/06/20 17:59 DC 04/06/20 17:37 Metoprolol Succinate (Toprol Xl) 50 mg DAILY PO 04/06/20 14:30 04/06/20 14:30 Lorazepam (Ativan Inj) 1 mg PRN Q4HRS PRN IVP MODERATE ANXIETY / AGITATION 04/06/20 23:30 04/07/20 05:01 LAB Lab: Laboratory Tests Test 04/07/20 04:50 White Blood Count 8.9 x10^3/uL (4.0-11.0) Red Blood Count 4.07 x10^6/uL (4.30-5.70) L Hemoglobin 9.7 g/dL (13.0-17.5) L Hematocrit 31.3 % (39.0-53.0) L Mean Corpuscular Volume 77 fL (79-100) L Mean Corpuscular Hemoglobin 24 pg (25-35) L Mean Corpuscular Hemoglobin Concent 31 g/dL (31-37) Red Cell Distribution Width 18.4 % (11.5-14.5) H Platelet Count 752 x10^3/uL (140-400) H Neutrophils (%) (Auto) 48 % (31-73) Lymphocytes (%) (Auto) 40 % (24-48) Monocytes (%) (Auto) 9 % (0-9) Eosinophils (%) (Auto) 2 % (0-3) Basophils (%) (Auto) 1 % (0-3) Neutrophils # (Auto) 4.3 x10^3/uL (1.8-7.7) Lymphocytes # (Auto) 3.5 x10^3/uL (1.0-4.8) Monocytes # (Auto) 0.8 x10^3/uL (0.0-1.1) Eosinophils # (Auto) 0.2 x10^3/uL (0.0-0.7) Basophils # (Auto) 0.1 x10^3/uL (0.0-0.2) Sodium Level 142 mmol/L (136-145) Potassium Level 3.4 mmol/L (3.5-5.1) L Chloride Level 109 mmol/L (98-107) H Carbon Dioxide Level 22 mmol/L (21-32) Anion Gap 11 (6-14) Blood Urea Nitrogen 13 mg/dL (8-26) Creatinine 1.0 mg/dL (0.7-1.3) Estimated GFR (Cockcroft-Gault) 94.9 BUN/Creatinine Ratio 13 (6-20) Glucose Level 111 mg/dL (70-99) H Calcium Level 8.7 mg/dL (8.5-10.1) Total Bilirubin 0.3 mg/dL (0.2-1.0) Aspartate Amino Transferase (AST) 34 U/L (15-37) Alanine Aminotransferase (ALT) 25 U/L (16-63) Alkaline Phosphatase 75 U/L (46-116) Total Protein 8.4 g/dL (6.4-8.2) H Albumin 3.0 g/dL (3.4-5.0) L Albumin/Globulin Ratio 0.6 (1.0-1.7) L Laboratory Tests 04/07/20 04:50 Laboratory Tests 04/07/20 04:50 ASSESSMENT & PLAN A&P Plan as noted above This note was created using [employer] and may have omissions and/or errors due to the nature of real-time voice [employer]. Justifications for Admission Other Justification CARDIAC ARREST REJI MOORE MD Apr 07, 2020 10:43
[2020-04-07 10:49] VITALS: BP 160/82
[2020-04-07] MEDS: AMIODARONE HCL 200 MG TABLET. PO SCH (11:05)
[2020-04-07] MEDS: FUROSEMIDE 40 MG/4 ML VIAL. IVP SCH (11:05)
[2020-04-07] MEDS: PANTOPRAZOLE 40 MG TABLET.DR. PO SCH (11:05)
[2020-04-07] MEDS: CLOPIDOGREL BISULFATE 75 MG TABLET PO SCH (11:06)
[2020-04-07] MEDS: LISINOPRIL 5 MG TABLET. PO SCH (11:06)
[2020-04-07] MEDS: ENOXAPARIN 40 MG/0.4 ML SYRINGE. SQ SCH (11:07)
[2020-04-07] MEDS: METOPROLOL SUCC 24HR ER 50 MG TAB.ER.24H. PO SCH (11:07)
[2020-04-07 14:48] VITALS: BP 128/82
--- NOTE | 2020-04-07 16:15 | PDOC ---
PROGRESS NOTES Date of Service: DATE: 04/07/20 TIME: 16:15 Subjective Subjective Comfortable, no new complaints Objective Objective Vital Signs Date Time Temp Pulse Resp B/P (MAP) Pulse Ox O2 Delivery O2 Flow Rate FiO2 04/07/20 14:48 97.7 80 22 128/82 (97) 98 Room Air 97.7 04/07/20 08:00 2.0 Intake and Output 04/07/20 07:00 Intake Total 270 ml Output Total 1450 ml Balance -1180 ml Intake Oral 270 ml Output Urine Total 1450 ml # Bowel Movements 1 Physical Exam Abdomen: Normal bowel sounds, No tenderness Heart: Regular rate, No murmurs Extremities: No clubbing, No edema General: Other (Awake but confused) HEENT: Atraumatic Lungs: Other (Decreased breath sounds) Psych/Mental Status: Other (sedated ) Assessment Assessment Assessment 1. OOH, witness cardiac arrest; recurrent Torsades, [place] arrest 03/27/20. LHC with patent LCx stent. No lesions needing intervention. s/p extubation, pulm following 3. Acute respiratory failure secondary to above; extubated, 4. H/o Vfib OOH arrest; probable ischemic in nature, antiarrhythmics discontinued in past due to QTc prolongation. 5. Acute on chronic systolic CHF: appears compensated 6. ICM; LVEF 20-25%. On LifeVest. Plan repeat echo in 3 months 7. CAD s/p PCI/BMS to the LCx 12/11/19. Stable and CP free 8. SSS s/p leadless PPM implantation ([employer]tronic Micra). Device check with normal function 04/02/20. 9. Leukocytosis, fevers. ? sepsis. better 10. Hypertension; controlled 11. H/o DAIJA requiringHD; renal function improvedand HD catheter removed 12. 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 Hgb 7.3 stable 13. HIV 14. Substance abuse; UDS + cocaine at [facility] 15. Noncompliance 16. Tobaccoism 17. Hypokalemia, hypomagnesemia: resolved 18. Encephalopathy: still having periods of confusion 19. Weakness, significant deconditioning Comment Review of Relevant I have reviewed the following items joel (where applicable) has been applied. Labs Laboratory Tests Test 04/07/20 04:50 White Blood Count 8.9 x10^3/uL (4.0-11.0) Red Blood Count 4.07 x10^6/uL (4.30-5.70) Hemoglobin 9.7 g/dL (13.0-17.5) Hematocrit 31.3 % (39.0-53.0) Mean Corpuscular Volume 77 fL (79-100) Mean Corpuscular Hemoglobin 24 pg (25-35) Mean Corpuscular Hemoglobin Concent 31 g/dL (31-37) Red Cell Distribution Width 18.4 % (11.5-14.5) Platelet Count 752 x10^3/uL (140-400) Neutrophils (%) (Auto) 48 % (31-73) Lymphocytes (%) (Auto) 40 % (24-48) Monocytes (%) (Auto) 9 % (0-9) Eosinophils (%) (Auto) 2 % (0-3) Basophils (%) (Auto) 1 % (0-3) Neutrophils # (Auto) 4.3 x10^3/uL (1.8-7.7) Lymphocytes # (Auto) 3.5 x10^3/uL (1.0-4.8) Monocytes # (Auto) 0.8 x10^3/uL (0.0-1.1) Eosinophils # (Auto) 0.2 x10^3/uL (0.0-0.7) Basophils # (Auto) 0.1 x10^3/uL (0.0-0.2) Sodium Level 142 mmol/L (136-145) Potassium Level 3.4 mmol/L (3.5-5.1) Chloride Level 109 mmol/L (98-107) Carbon Dioxide Level 22 mmol/L (21-32) Anion Gap 11 (6-14) Blood Urea Nitrogen 13 mg/dL (8-26) Creatinine 1.0 mg/dL (0.7-1.3) Estimated GFR (Cockcroft-Gault) 94.9 BUN/Creatinine Ratio 13 (6-20) Glucose Level 111 mg/dL (70-99) Calcium Level 8.7 mg/dL (8.5-10.1) Total Bilirubin 0.3 mg/dL (0.2-1.0) Aspartate Amino Transf (AST/SGOT) 34 U/L (15-37) Alanine Aminotransferase (ALT/SGPT) 25 U/L (16-63) Alkaline Phosphatase 75 U/L (46-116) Total Protein 8.4 g/dL (6.4-8.2) Albumin 3.0 g/dL (3.4-5.0) Albumin/Globulin Ratio 0.6 (1.0-1.7) Microbiology 03/26/20 Urine Culture - Final, Complete 03/21/20 Gram Stain Evaluation - Final, Complete 03/21/20 Respiratory Culture - Final, Complete 03/20/20 Blood Culture - Final, Complete NO GROWTH AFTER 5 DAYS Medications Current Medications Haloperidol Lactate (Haldol Inj) 5 mg PRN Q8HRS PRN IVP AGITATION Last administered on 04/07/20at 11:07; Start 04/06/20 at 23:30 Lisinopril (Prinivil) 5 mg DAILY PO Last administered on 04/07/20at 11:06; Start 04/07/20 at 09:00 Lorazepam (Ativan Inj) 1 mg PRN Q4HRS PRN IVP MODERATE ANXIETY / AGITATION Last administered on 04/07/20at 05:01; Start 04/06/20 at 23:30 Lorazepam (Ativan Inj) 2 mg PRN Q4HRS PRN IVP SEVERE ANXIETY / AGITATION; Start 04/06/20 at 23:30 Pantoprazole Sodium (Protonix) 40 mg DAILYAC PO Last administered on 04/07/20at 11:05; Start 04/07/20 at 07:30 Potassium Chloride 70 meq/ Potassium Phosphate 17 mmol/ Magnesium Sulfate 15 meq/ Multivitamins 5 ml/Zinc/Copper/ Manganese/ Selenium 1 ml/ Total Parenteral Nutrition/Amino Acids/Dextrose/ Fat Emulsion Intravenous 1,080 ml @ 45 mls/hr TPN CONT IV ; Start 04/06/20 at 22:00; Stop 04/06/20 at 13:22; Status DC Vitals/I & O Vital Sign - Last 24 Hours 04/06/20 04/06/20 04/06/20 04/07/20 19:00 20:00 23:30 03:00 Temp 98.0 98.3 98.0 98.3 Pulse 95 91 Resp 22 26 B/P (MAP) 122/87 (99) 126/91 (103) Pulse Ox 94 97 O2 Delivery Room Air Room Air Room Air Room Air 04/07/20 04/07/20 04/07/20 04/07/20 04:20 07:00 08:00 10:49 Temp 98.7 98.0 97.6 98.7 98.0 97.6 Pulse 105 77 77 Resp 22 22 22 B/P (MAP) 155/96 (115) 125/52 (76) 160/82 (108) Pulse Ox 95 94 99 O2 Delivery Room Air Room Air Room Air Room Air O2 Flow Rate 2.0 04/07/20 04/07/20 04/07/20 04/07/20 11:05 11:06 11:07 14:48 Temp 97.7 97.7 Pulse 77 77 77 80 Resp 22 B/P (MAP) 160/82 160/82 160/82 128/82 (97) Pulse Ox 98 O2 Delivery Room Air Intake and Output 04/06/20 04/06/20 04/07/20 15:00 23:00 07:00 Intake Total 100 ml 170 ml Output Total 550 ml 300 ml 600 ml Balance -550 ml -200 ml -430 ml LUTHER CRYSTAL MD Apr 07, 2020 16:15
[2020-04-07 19:00] VITALS: BP 93/66
[2020-04-07] MEDS: ATORVASTATIN CALCIUM 40 MG TABLET. PO SCH (21:55)
[2020-04-07 23:19] VITALS: BP 110/70
[2020-04-08] VITALS (8 sets, daily range): BP systolic 94–129; BP diastolic 60–82
[2020-04-08 07:06] LABS: BASO % 0 % (0-3); EOS # 0.2 x10^3/uL (0.0-0.7); EOS % 3 % (0-3); HEMATOCRIT 29.1 % (39.0-53.0); HEMOGLOBIN 9.2 g/dL (13.0-17.5); LYMPH % 38 % (24-48); MEAN CORPUSCULAR HEMOGLOBIN 25 pg (25-35); MEAN CORPUSCULAR HGB CONC 32 g/dL (31-37); MEAN CORPUSCULAR VOLUME 77 fL (79-100); MONO # 0.7 x10^3/uL (0.0-1.1); MONO % 8 % (0-9); NEUT # 4.1 x10^3/uL (1.8-7.7); NEUT % 51 % (31-73); PLATELET COUNT 699 x10^3/uL (140-400); RED BLOOD COUNT 3.77 x10^6/uL (4.30-5.70); RED CELL DISTRIBUTION WIDTH 18.8 % (11.5-14.5)
[2020-04-08 07:27] LABS: ALBUMIN 2.9 g/dL (3.4-5.0); ALBUMIN/GLOBULIN RATIO 0.6 (1.0-1.7); CALCIUM 8.8 mg/dL (8.5-10.1); CREATININE 1.2 mg/dL (0.7-1.3); GFR 76.9; POTASSIUM 3.9 mmol/L (3.5-5.1); TOTAL BILIRUBIN 0.5 mg/dL (0.2-1.0); TOTAL PROTEIN 8.1 g/dL (6.4-8.2)
[2020-04-08] MEDS: AMIODARONE HCL 200 MG TABLET. PO SCH (08:02)
[2020-04-08] MEDS: PANTOPRAZOLE 40 MG TABLET.DR. PO SCH (08:02)
[2020-04-08] MEDS: CLOPIDOGREL BISULFATE 75 MG TABLET PO SCH (08:02)
[2020-04-08] MEDS: METOPROLOL SUCC 24HR ER 50 MG TAB.ER.24H. PO SCH (08:02)
[2020-04-08] MEDS: LAMIVUDINE PO SCH (08:03)
[2020-04-08] MEDS: DOLUTEGRAVIR PO SCH (08:03)
[2020-04-08] MEDS: ABACAVIR PO SCH (08:03)
[2020-04-08] MEDS: FUROSEMIDE 40 MG/4 ML VIAL. IVP SCH (08:05)
--- NOTE | 2020-04-08 09:47 | PDOC ---
Infectious Disease Note Subjective: Subjective Patient denies any complaints Had periods of agitation requiring Zyprexa per RN Vital Signs: Vital Signs Vital Signs Date Time Temp Pulse Resp B/P (MAP) Pulse Ox O2 Delivery O2 Flow Rate FiO2 04/08/20 08:02 91 115/82 04/08/20 08:00 Room Air 04/08/20 07:00 98.5 18 94 98.5 04/07/20 08:00 2.0 Physical Exam: PHYSICAL EXAM GENERAL: alert awake male on nasal O2 HEENT: Normocephalic atraumatic pupils equal, reactive. NECK: Supple. LUNGS: Clear anteriorly. HEART: S1, S2, no murmurs ABDOMEN: Obese, mildly distended. Bowel sounds present. EXTREMITIES: No edema or cyanosis. Superficial thrombophlebitis right upper extremity latter improved DERMATOLOGIC: Warm and dry. No generalized rash. NEUROLOGIC alert oriented x3 grossly nonfocal Medications: Inpatient Meds: Current Medications Medications (Trade) Dose Ordered Sig/Guy Start Time Stop Time Status Last Admin Dose Admin Acetaminophen (Tylenol) 650 mg PRN Q6HRS PRN 03/20/20 09:00 03/27/20 20:51 650 MG Amino Acids/ Glycerin/ Electrolytes 1,000 ml @ 80 mls/hr [id number] 04/04/20 11:30 04/04/20 21:59 DC 04/04/20 11:00 80 MLS/HR Amiodarone HCl (Cordarone) 400 mg DAILY 03/30/20 09:00 04/08/20 08:02 400 MG Amiodarone HCl 150 mg/Dextrose 103 ml @ 618 mls/hr 1X ONCE 03/26/20 19:45 03/26/20 19:54 DC 03/26/20 19:44 618 MLS/HR Amiodarone HCl 450 mg/Dextrose 259 ml @ 16.7 mls/hr CONT PRN 03/27/20 03:00 03/27/20 18:16 DC 03/27/20 18:15 16.7 MLS/HR Atorvastatin Calcium (Lipitor) 80 mg QHS 03/20/20 21:00 04/07/20 21:55 80 MG Atropine Sulfate (ATROPINE 0.5mg SYRINGE) 0.5 mg PRN Q5MIN PRN 03/27/20 01:45 03/27/20 16:31 DC Barium Sulfate (Varibar Thin Liquid Apple) 148 gm 1X ONCE 04/05/20 11:00 04/05/20 11:04 DC 04/05/20 12:30 148 GM Chlorhexidine Gluconate (Peridex) 15 ml BID 03/26/20 21:00 03/28/20 11:44 DC 03/27/20 20:51 15 ML Clopidogrel Bisulfate (Plavix) 75 mg [id number] 03/20/20 12:00 04/08/20 08:02 75 MG Dexmedetomidine HCl 400 mcg/ Sodium Chloride 100 ml @ 0 mls/hr CONT PRN 03/27/20 01:45 04/05/20 18:53 DC 04/03/20 01:36 9 MLS/HR Docusate Sodium (Colace Solution) 100 mg BID 03/20/20 09:00 03/26/20 15:28 DC 03/26/20 08:35 100 MG Dopamine HCl/ Dextrose 250 ml @ 17.681 mls/ hr CONT PRN 03/20/20 04:30 Enoxaparin Sodium (Lovenox 40mg Syringe) 40 mg Q24H 04/02/20 12:00 04/07/20 11:07 40 MG Epinephrine HCl (EPINEPHrine SYRINGE) 1 mg STK-MED ONCE 03/29/20 12:00 03/30/20 13:02 DC Etomidate (Amidate) 20 mg STK-MED ONCE 03/26/20 23:34 03/26/20 23:35 DC Famotidine (Pepcid Vial) 20 mg BID 03/20/20 11:00 03/20/20 12:35 DC Fentanyl Citrate 30 ml @ 0 mls/hr CONT PRN 03/26/20 19:15 UNV Fentanyl Citrate (Fentanyl 2ml Vial) 50 mcg PRN Q1HR PRN 03/26/20 19:15 04/04/20 02:45 50 MCG Furosemide (Lasix) 40 mg DAILY 03/22/20 11:00 04/08/20 08:05 40 MG Haloperidol Lactate (Haldol Inj) 5 mg PRN Q8HRS PRN 04/06/20 23:30 04/07/20 11:07 5 MG Heparin Sodium (Porcine) (Heparin Sodium) 2,400 unit PRN Q6HRS PRN 03/20/20 04:30 03/22/20 10:15 DC 03/21/20 14:17 2,400 UNIT Heparin Sodium/ Dextrose 250 ml @ 0 mls/hr CONT PRN 03/20/20 04:30 03/22/20 10:15 DC 03/21/20 22:15 19.8 MLS/HR Heparin Sodium/ Sodium Chloride (HEPARIN for ARTERIAL LINE FLUSH) 1,000 unit 1X ONCE 03/27/20 10:00 03/27/20 10:01 DC 03/27/20 10:00 1,000 UNIT Info (CONTRAST GIVEN -- Rx MONITORING) 1 each PRN DAILY PRN 03/27/20 10:00 03/29/20 09:59 DC Info (Icu Electrolyte Protocol) 1 ea DAILY 03/21/20 09:00 04/05/20 18:53 DC 04/05/20 09:00 1 EA Info (Non-Icu Electrolyte Protocol) 1 ea CONT PRN PRN 04/05/20 19:00 Info (Tpn Per Pharmacy) 1 each PRN DAILY PRN 04/04/20 11:00 04/06/20 13:20 DC 04/05/20 10:41 1 EACH Iodixanol (Visipaque 320) 100 ml 1X ONCE 03/27/20 10:00 03/27/20 10:01 DC 03/27/20 11:05 107 ML Labetalol HCl (Normodyne Iv Push) 10 mg PRN Q2HR PRN 03/26/20 19:15 Lidocaine HCl (Lidocaine 1% 20ml Vial) 20 ml 1X ONCE 03/27/20 10:00 03/27/20 10:01 DC 03/27/20 10:41 13 ML Lidocaine HCl (Lidocaine HCl 2% Abboject) 100 mg STK-MED ONCE 03/29/20 12:00 03/30/20 13:02 DC Linezolid/Dextrose 300 ml @ 300 mls/hr Q12HR 03/21/20 09:00 03/28/20 08:39 DC 03/28/20 08:19 300 MLS/HR Lisinopril (Prinivil) 5 mg DAILY 04/07/20 09:00 04/07/20 11:06 5 MG Lorazepam (Ativan Inj) 2 mg PRN Q4HRS PRN 04/06/20 23:30 Magnesium Sulfate 50 ml @ 25 mls/hr 1X ONCE 04/02/20 12:00 04/02/20 13:59 DC 04/02/20 11:47 25 MLS/HR Metoprolol Succinate (Toprol Xl) 50 mg DAILY 04/06/20 14:30 04/07/20 11:25 DC 04/06/20 14:30 50 MG Metoprolol Tartrate (Lopressor Vial) 5 mg Q6HRS 04/05/20 10:00 04/06/20 11:55 DC 04/06/20 05:49 5 MG Midazolam HCl 100 ml @ 0 mls/hr CONT PRN 03/26/20 19:15 04/05/20 18:53 DC 04/01/20 12:21 5 MLS/HR Milrinone Lactate/ Dextrose 100 ml @ 6.735 mls/ hr CONT PRN 03/30/20 15:30 04/06/20 14:23 DC 04/01/20 20:33 6.735 MLS/HR Morphine Sulfate (Morphine Sulfate) 4 mg PRN Q1HR PRN 03/26/20 19:15 03/28/20 22:35 DC Nicardipine HCl 50 mg/Sodium Chloride 250 ml @ 25 mls/hr CONT PRN 04/02/20 12:00 04/06/20 14:23 DC 04/04/20 17:16 12.5 MLS/HR Non-Formulary Medication (ABACAVIR/ DOLUTEGRAVIR/ LAMIVUDINE (Triumeq) tablet) 1 ea DAILY 03/20/20 17:00 04/08/20 08:03 1 EA Norepinephrine Bitartrate 8 mg/ Dextrose 258 ml @ 18.247 mls/ hr CONT PRN 03/20/20 04:15 04/06/20 10:08 DC 03/28/20 19:12 18.247 MLS/HR Olanzapine (ZyPREXA ZYDIS) 5 mg PRN Q4HRS PRN 03/26/20 19:15 04/08/20 08:02 5 MG Ondansetron HCl (Zofran) 4 mg PRN Q6HRS PRN 03/20/20 10:30 04/04/20 05:24 4 MG Pantoprazole Sodium (PROTONIX VIAL for IV PUSH) 40 mg DAILYAC 03/20/20 12:30 04/06/20 10:06 DC 04/06/20 08:39 40 MG Pantoprazole Sodium (Protonix) 40 mg DAILYAC 04/07/20 07:30 04/08/20 08:02 40 MG Piperacillin Sod/ Tazobactam Sod (Zosyn Per Pharmacy) 1 each PRN DAILY PRN 03/20/20 09:30 04/04/20 10:19 DC Piperacillin Sod/ Tazobactam Sod 3.375 gm/Sodium Chloride 50 ml @ 100 mls/hr Q6HRS 03/20/20 10:00 04/04/20 08:17 DC 04/04/20 06:03 100 MLS/HR Potassium Bicarbonate (Potassium Effervescent Tablet) 40 meq 1X ONCE 04/02/20 09:30 04/02/20 09:31 DC 04/02/20 09:34 40 MEQ Potassium Chloride 70 meq/ Potassium Phosphate 17 mmol/ Magnesium Sulfate 15 meq/ Multivitamins 5 ml/Zinc/Copper/ Manganese/ Selenium 1 ml/ Total Parenteral Nutrition/Amino Acids/Dextrose/ Fat Emulsion Intravenous 1,080 ml @ 45 mls/hr TPN CONT 04/06/20 22:00 04/06/20 13:22 DC Potassium Chloride/Water 100 ml @ 100 mls/hr 1X ONCE 04/05/20 12:00 04/05/20 12:59 DC Potassium Phosphate 13.6 mmol/Sodium Chloride 254.5333 ml @ 127.... Q2H 04/06/20 14:00 04/06/20 17:59 DC 04/06/20 17:37 127.267 MLS/HR Propofol 100 ml @ 0 mls/hr CONT PRN 03/26/20 19:15 04/05/20 18:53 DC 04/03/20 05:44 18.7 MLS/HR Sodium Bicarbonate (Sodium Bicarb Adult 8.4% Syr) 50 meq STK-MED ONCE 03/26/20 21:00 03/27/20 19:23 DC Sodium Chloride (Normal Saline Flush) 3 ml QSHIFT PRN 03/20/20 10:30 Sodium Chloride 45 meq/Potassium Chloride 50 meq/ Potassium Phosphate 17 mmol/ Magnesium Sulfate 15 meq/ Multivitamins 5 ml/Zinc/Copper/ Manganese/ Selenium 1 ml/ Total Parenteral Nutrition/Amino Acids/Dextrose/ Fat Emulsion Intravenous 1,080 ml @ 45 mls/hr TPN CONT 04/05/20 22:00 04/06/20 15:46 DC 04/05/20 22:34 45 MLS/HR Sodium Chloride 90 meq/Potassium Chloride 50 meq/ Potassium Phosphate 13.6 mmol/Magnesium Sulfate 15 meq/ Calcium Gluconate 10 meq/ Multivitamins 5 ml/Zinc/Copper/ Manganese/ Selenium 1 ml/ Total Parenteral Nutrition/Amino Acids/Dextrose/ Fat Emulsion Intravenous 1,512 ml @ 63 mls/hr TPN CONT 04/04/20 22:00 04/05/20 21:59 DC 04/04/20 20:50 63 MLS/HR Sodium Phosphate 15 mmol/Sodium Chloride 105 ml @ 105 mls/hr 1X ONCE 04/05/20 12:00 04/05/20 12:59 DC 04/05/20 13:18 105 MLS/HR Succinylcholine Chloride (Anectine) 200 mg STK-MED ONCE 03/26/20 23:34 03/26/20 23:35 DC Vancomycin HCl (Vancomycin Oral Solution) 125 mg BID 03/20/20 21:30 04/04/20 08:17 DC 04/03/20 08:17 125 MG Labs: Lab Laboratory Tests Test 04/08/20 06:45 White Blood Count 8.0 x10^3/uL (4.0-11.0) Red Blood Count 3.77 x10^6/uL (4.30-5.70) Hemoglobin 9.2 g/dL (13.0-17.5) Hematocrit 29.1 % (39.0-53.0) Mean Corpuscular Volume 77 fL (79-100) Mean Corpuscular Hemoglobin 25 pg (25-35) Mean Corpuscular Hemoglobin Concent 32 g/dL (31-37) Red Cell Distribution Width 18.8 % (11.5-14.5) Platelet Count 699 x10^3/uL (140-400) Neutrophils (%) (Auto) 51 % (31-73) Lymphocytes (%) (Auto) 38 % (24-48) Monocytes (%) (Auto) 8 % (0-9) Eosinophils (%) (Auto) 3 % (0-3) Basophils (%) (Auto) 0 % (0-3) Neutrophils # (Auto) 4.1 x10^3/uL (1.8-7.7) Lymphocytes # (Auto) 3.0 x10^3/uL (1.0-4.8) Monocytes # (Auto) 0.7 x10^3/uL (0.0-1.1) Eosinophils # (Auto) 0.2 x10^3/uL (0.0-0.7) Basophils # (Auto) 0.0 x10^3/uL (0.0-0.2) Sodium Level 142 mmol/L (136-145) Potassium Level 3.9 mmol/L (3.5-5.1) Chloride Level 106 mmol/L (98-107) Carbon Dioxide Level 24 mmol/L (21-32) Anion Gap 12 (6-14) Blood Urea Nitrogen 15 mg/dL (8-26) Creatinine 1.2 mg/dL (0.7-1.3) Estimated GFR (Cockcroft-Gault) 76.9 BUN/Creatinine Ratio 13 (6-20) Glucose Level 122 mg/dL (70-99) Calcium Level 8.8 mg/dL (8.5-10.1) Total Bilirubin 0.5 mg/dL (0.2-1.0) Aspartate Amino Transf (AST/SGOT) 37 U/L (15-37) Alanine Aminotransferase (ALT/SGPT) 26 U/L (16-63) Alkaline Phosphatase 78 U/L (46-116) Total Protein 8.1 g/dL (6.4-8.2) Albumin 2.9 g/dL (3.4-5.0) Albumin/Globulin Ratio 0.6 (1.0-1.7) Objective: Assessment: 1. Fever, likely aspiration. Resolved 2. Witnessed cardiac arrest, status post defibrillation. 3. Leukocytosis and lactic acidosis. 4. Human immunodeficiency virus, CD4 496 March 2019 was 403 on 01/16 viral load less than 20 on 01/23,on Triumeq. 5. Acute hypoxic respiratory failure Extubated, reintubated Mar 26 6. History of ventricular tachycardia, Coronary artery disease, status post PCI. 7. Status post pacemaker for bradycardia 12/27 at [facility]. 8. History of acute kidney injury, on hemodialysis in the past. 9. 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 10. Substance dependence. UDS positive for cocaine at outside hospital. 11. Hypertension/hyperlipidemia 12. Hypokalemia/hypomagnesemia. 13. H/O Chronic systolic congestive heart failure. 14. History of rectal abscess. 15. History of Necrotizing Pneumonia with Klebsiella at [facility] November 2019 16. V. fib arrest, torsades here on Mar 26 19. Severe cardiomyopathy 20. Anemia of chronic disease 21. History of noncompliance 22. Oropharyngeal dysphagia,hoarseness of voice,chronic Plan: Plan of Care Monitor off antibiotics Continue Triumeq, Maintain aspiration precautions Continue supportive care JOHN Salinas Discussed with nursing. MILLY NICOLE MD Apr 08, 2020 09:47
[2020-04-08] MEDS: ENOXAPARIN 40 MG/0.4 ML SYRINGE. SQ SCH (12:29)
[2020-04-08] MEDS: LISINOPRIL 5 MG TABLET. PO SCH (12:30)
--- NOTE | 2020-04-08 12:58 | NUR ---
I spoke to Celia Silverman regarding the exposed wires on device. He stated that they will send someone in to check the device.
--- NOTE | 2020-04-08 14:48 | PDOC ---
PROGRESS NOTES Date of Service: DATE: 04/08/20 TIME: 14:47 Subjective Subjective No new complaints Objective Objective Vital Signs Date Time Temp Pulse Resp B/P (MAP) Pulse Ox O2 Delivery O2 Flow Rate FiO2 04/08/20 14:26 97.6 81 18 94/73 (80) 97 Room Air 97.6 04/07/20 08:00 2.0 Intake and Output 04/08/20 07:00 Intake Total 520 ml Output Total 1250 ml Balance -730 ml Intake Oral 520 ml Output Urine Total 1250 ml # Bowel Movements 1 Physical Exam Abdomen: Normal bowel sounds, No tenderness Heart: Regular rate, No murmurs Extremities: No clubbing, No edema General: Other HEENT: Atraumatic Lungs: Other (Decreased breath sounds) Psych/Mental Status: Other (sedated ) Assessment Assessment 1. OOH, witness cardiac arrest; recurrent Torsades, VT arrest 03/27/20. LHC with patent LCx stent. No lesions needing intervention. s/p extubation, pulm following 3. Acute respiratory failure secondary to above; extubated, 4. H/o Vfib OOH arrest; probable ischemic in nature, antiarrhythmics discontinued in past due to QTc prolongation. 5. Acute on chronic systolic CHF: appears compensated 6. ICM; LVEF 20-25%. On LifeVest. Plan repeat echo in 3 months 7. CAD s/p PCI/BMS to the LCx 12/11/19. Stable and CP free 8. SSS s/p leadless PPM implantation ([employer]tronic Micra). Device check with normal function 04/02/20. 9. Leukocytosis, fevers. ? sepsis. better 10. Hypertension; controlled 11. H/o DAIJA requiringHD; renal function improvedand HD catheter removed 12. 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 Hgb 7.3 stable 13. HIV 14. Substance abuse; UDS + cocaine at [facility] 15. Noncompliance 16. Tobaccoism 17. Hypokalemia, hypomagnesemia: resolved 18. Encephalopathy: still having periods of confusion 19. Weakness, significant deconditioning Comment Review of Relevant I have reviewed the following items joel (where applicable) has been applied. Labs Laboratory Tests Test 04/08/20 06:45 White Blood Count 8.0 x10^3/uL (4.0-11.0) Red Blood Count 3.77 x10^6/uL (4.30-5.70) Hemoglobin 9.2 g/dL (13.0-17.5) Hematocrit 29.1 % (39.0-53.0) Mean Corpuscular Volume 77 fL (79-100) Mean Corpuscular Hemoglobin 25 pg (25-35) Mean Corpuscular Hemoglobin Concent 32 g/dL (31-37) Red Cell Distribution Width 18.8 % (11.5-14.5) Platelet Count 699 x10^3/uL (140-400) Neutrophils (%) (Auto) 51 % (31-73) Lymphocytes (%) (Auto) 38 % (24-48) Monocytes (%) (Auto) 8 % (0-9) Eosinophils (%) (Auto) 3 % (0-3) Basophils (%) (Auto) 0 % (0-3) Neutrophils # (Auto) 4.1 x10^3/uL (1.8-7.7) Lymphocytes # (Auto) 3.0 x10^3/uL (1.0-4.8) Monocytes # (Auto) 0.7 x10^3/uL (0.0-1.1) Eosinophils # (Auto) 0.2 x10^3/uL (0.0-0.7) Basophils # (Auto) 0.0 x10^3/uL (0.0-0.2) Sodium Level 142 mmol/L (136-145) Potassium Level 3.9 mmol/L (3.5-5.1) Chloride Level 106 mmol/L (98-107) Carbon Dioxide Level 24 mmol/L (21-32) Anion Gap 12 (6-14) Blood Urea Nitrogen 15 mg/dL (8-26) Creatinine 1.2 mg/dL (0.7-1.3) Estimated GFR (Cockcroft-Gault) 76.9 BUN/Creatinine Ratio 13 (6-20) Glucose Level 122 mg/dL (70-99) Calcium Level 8.8 mg/dL (8.5-10.1) Total Bilirubin 0.5 mg/dL (0.2-1.0) Aspartate Amino Transf (AST/SGOT) 37 U/L (15-37) Alanine Aminotransferase (ALT/SGPT) 26 U/L (16-63) Alkaline Phosphatase 78 U/L (46-116) Total Protein 8.1 g/dL (6.4-8.2) Albumin 2.9 g/dL (3.4-5.0) Albumin/Globulin Ratio 0.6 (1.0-1.7) Microbiology 03/26/20 Urine Culture - Final, Complete 03/21/20 Gram Stain Evaluation - Final, Complete 03/21/20 Respiratory Culture - Final, Complete 03/20/20 Blood Culture - Final, Complete NO GROWTH AFTER 5 DAYS Vitals/I & O Vital Sign - Last 24 Hours 04/07/20 04/07/20 04/07/20 04/07/20 14:48 19:00 20:00 23:19 Temp 97.7 97.6 99.0 97.7 97.6 99.0 Pulse 80 97 98 Resp 22 18 18 B/P (MAP) 128/82 (97) 93/66 (75) 110/70 (83) Pulse Ox 98 95 96 O2 Delivery Room Air Room Air Room Air Room Air 04/08/20 04/08/20 04/08/20 04/08/20 03:02 07:00 08:00 08:02 Temp 97.8 98.5 97.8 98.5 Pulse 100 91 91 Resp 18 18 B/P (MAP) 118/67 (84) 115/82 (93) 115/82 Pulse Ox 100 94 O2 Delivery Room Air Room Air Room Air 04/08/20 04/08/20 04/08/20 04/08/20 08:02 10:45 12:30 14:26 Temp 98.1 97.6 98.1 97.6 Pulse 91 81 81 81 Resp 18 18 B/P (MAP) 115/82 120/60 (80) 120/60 94/73 (80) Pulse Ox 98 97 O2 Delivery Room Air Room Air Intake and Output 04/07/20 04/07/20 04/08/20 15:00 23:00 07:00 Intake Total 120 ml 400 ml Output Total 1250 ml Balance -1130 ml 400 ml LUTHER CRYSTAL MD Apr 08, 2020 14:48
--- NOTE | 2020-04-08 15:16 | PDOC ---
GENERAL General: Patient examined chart reviewed discussed with nursing. He is sitting up on the edge of the bed tells me he is leaving tonight. 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 We still need to discontinue his [place] catheter and his central line he is agreeable to waiting for his discharge to be coordinated. Hopefully he will be able to work with rehab on transition tomorrow. We will continue current management otherwise. Problems: (1) Anoxic encephalopathy (2) HIV (human immunodeficiency virus infection) (3) Failure to thrive in adult (4) Cardiac arrest (5) Chronic systolic (congestive) heart failure VITAL SIGNS Vital Signs/I&O: Vital Signs Date Time Temp Pulse Resp B/P (MAP) Pulse Ox O2 Delivery O2 Flow Rate FiO2 04/08/20 14:26 97.6 81 18 94/73 (80) 97 Room Air 97.6 04/07/20 08:00 2.0 I & O 04/07/20 04/07/20 04/08/20 15:00 23:00 07:00 Intake Total 120 ml 400 ml Output Total 1250 ml Balance -1130 ml 400 ml Patient is sitting on the edge of the bed tells me he is ready to go home bright and alert today Chest is clear to auscultation Heart S1-S2 normal regular rate and rhythm no murmurs or gallops are noted Abdomen soft nontender nondistended no masses organomegaly noted Extremity exam is unremarkable for acute abnormality ALLERGIES Allergies: Allergies Coded Allergies Type Severity Reaction Last Updated Verified No Known Drug Allergies 01/30/20 No MEDS Medications: Current Medications Medications (Trade) Dose Ordered Sig/Guy Start Time Stop Time Status Last Admin Dose Admin Acetaminophen (Tylenol) 650 mg PRN Q6HRS PRN 03/20/20 09:00 03/27/20 20:51 Amino Acids/ Glycerin/ Electrolytes 1,000 ml @ 80 mls/hr [id number] 04/04/20 11:30 04/04/20 21:59 DC 04/04/20 11:00 Amiodarone HCl (Cordarone) 400 mg DAILY 03/30/20 09:00 04/08/20 08:02 Amiodarone HCl 150 mg/Dextrose 103 ml @ 618 mls/hr 1X ONCE 03/26/20 19:45 03/26/20 19:54 DC 03/26/20 19:44 Amiodarone HCl 450 mg/Dextrose 259 ml @ 16.7 mls/hr CONT PRN 03/27/20 03:00 03/27/20 18:16 DC 03/27/20 18:15 Atorvastatin Calcium (Lipitor) 80 mg QHS 03/20/20 21:00 04/07/20 21:55 Atropine Sulfate (ATROPINE 0.5mg SYRINGE) 0.5 mg PRN Q5MIN PRN 03/27/20 01:45 03/27/20 16:31 DC Barium Sulfate (Varibar Thin Liquid Apple) 148 gm 1X ONCE 04/05/20 11:00 04/05/20 11:04 DC 04/05/20 12:30 Chlorhexidine Gluconate (Peridex) 15 ml BID 03/26/20 21:00 03/28/20 11:44 DC 03/27/20 20:51 Clopidogrel Bisulfate (Plavix) 75 mg [id number] 03/20/20 12:00 04/08/20 08:02 Dexmedetomidine HCl 400 mcg/ Sodium Chloride 100 ml @ 0 mls/hr CONT PRN 03/27/20 01:45 04/05/20 18:53 DC 04/03/20 01:36 Docusate Sodium (Colace Solution) 100 mg BID 03/20/20 09:00 03/26/20 15:28 DC 03/26/20 08:35 Dopamine HCl/ Dextrose 250 ml @ 17.681 mls/ hr CONT PRN 03/20/20 04:30 Enoxaparin Sodium (Lovenox 40mg Syringe) 40 mg Q24H 04/02/20 12:00 04/08/20 12:29 Epinephrine HCl (EPINEPHrine SYRINGE) 1 mg STK-MED ONCE 03/29/20 12:00 03/30/20 13:02 DC Etomidate (Amidate) 20 mg STK-MED ONCE 03/26/20 23:34 03/26/20 23:35 DC Famotidine (Pepcid Vial) 20 mg BID 03/20/20 11:00 03/20/20 12:35 DC Fentanyl Citrate 30 ml @ 0 mls/hr CONT PRN 03/26/20 19:15 UNV Fentanyl Citrate (Fentanyl 2ml Vial) 50 mcg PRN Q1HR PRN 03/26/20 19:15 04/04/20 02:45 Furosemide (Lasix) 40 mg DAILY 03/22/20 11:00 04/08/20 08:05 Haloperidol Lactate (Haldol Inj) 5 mg PRN Q8HRS PRN 04/06/20 23:30 04/07/20 11:07 Heparin Sodium (Porcine) (Heparin Sodium) 2,400 unit PRN Q6HRS PRN 03/20/20 04:30 03/22/20 10:15 DC 03/21/20 14:17 Heparin Sodium/ Dextrose 250 ml @ 0 mls/hr CONT PRN 03/20/20 04:30 03/22/20 10:15 DC 03/21/20 22:15 Heparin Sodium/ Sodium Chloride (HEPARIN for ARTERIAL LINE FLUSH) 1,000 unit 1X ONCE 03/27/20 10:00 03/27/20 10:01 DC 03/27/20 10:00 Info (CONTRAST GIVEN -- Rx MONITORING) 1 each PRN DAILY PRN 03/27/20 10:00 03/29/20 09:59 DC Info (Icu Electrolyte Protocol) 1 ea DAILY 03/21/20 09:00 04/05/20 18:53 DC 04/05/20 09:00 Info (Non-Icu Electrolyte Protocol) 1 ea CONT PRN PRN 04/05/20 19:00 Info (Tpn Per Pharmacy) 1 each PRN DAILY PRN 04/04/20 11:00 04/06/20 13:20 DC 04/05/20 10:41 Iodixanol (Visipaque 320) 100 ml 1X ONCE 03/27/20 10:00 03/27/20 10:01 DC 03/27/20 11:05 Labetalol HCl (Normodyne Iv Push) 10 mg PRN Q2HR PRN 03/26/20 19:15 Lidocaine HCl (Lidocaine 1% 20ml Vial) 20 ml 1X ONCE 03/27/20 10:00 03/27/20 10:01 DC 03/27/20 10:41 Lidocaine HCl (Lidocaine HCl 2% Abboject) 100 mg STK-MED ONCE 03/29/20 12:00 03/30/20 13:02 DC Linezolid/Dextrose 300 ml @ 300 mls/hr Q12HR 03/21/20 09:00 03/28/20 08:39 DC 03/28/20 08:19 Lisinopril (Prinivil) 5 mg DAILY 04/07/20 09:00 04/08/20 12:30 Lorazepam (Ativan Inj) 2 mg PRN Q4HRS PRN 04/06/20 23:30 Magnesium Sulfate 50 ml @ 25 mls/hr 1X ONCE 04/02/20 12:00 04/02/20 13:59 DC 04/02/20 11:47 Metoprolol Succinate (Toprol Xl) 50 mg DAILY 04/06/20 14:30 04/07/20 11:25 DC 04/06/20 14:30 Metoprolol Tartrate (Lopressor Vial) 5 mg Q6HRS 04/05/20 10:00 04/06/20 11:55 DC 04/06/20 05:49 Midazolam HCl 100 ml @ 0 mls/hr CONT PRN 03/26/20 19:15 04/05/20 18:53 DC 04/01/20 12:21 Milrinone Lactate/ Dextrose 100 ml @ 6.735 mls/ hr CONT PRN 03/30/20 15:30 04/06/20 14:23 DC 04/01/20 20:33 Morphine Sulfate (Morphine Sulfate) 4 mg PRN Q1HR PRN 03/26/20 19:15 03/28/20 22:35 DC Nicardipine HCl 50 mg/Sodium Chloride 250 ml @ 25 mls/hr CONT PRN 04/02/20 12:00 04/06/20 14:23 DC 04/04/20 17:16 Non-Formulary Medication (ABACAVIR/ DOLUTEGRAVIR/ LAMIVUDINE (Triumeq) tablet) 1 ea DAILY 03/20/20 17:00 04/08/20 08:03 Norepinephrine Bitartrate 8 mg/ Dextrose 258 ml @ 18.247 mls/ hr CONT PRN 03/20/20 04:15 04/06/20 10:08 DC 03/28/20 19:12 Olanzapine (ZyPREXA ZYDIS) 5 mg PRN Q4HRS PRN 03/26/20 19:15 04/08/20 08:02 Ondansetron HCl (Zofran) 4 mg PRN Q6HRS PRN 03/20/20 10:30 04/04/20 05:24 Pantoprazole Sodium (PROTONIX VIAL for IV PUSH) 40 mg DAILYAC 03/20/20 12:30 04/06/20 10:06 DC 04/06/20 08:39 Pantoprazole Sodium (Protonix) 40 mg DAILYAC 04/07/20 07:30 04/08/20 08:02 Piperacillin Sod/ Tazobactam Sod (Zosyn Per Pharmacy) 1 each PRN DAILY PRN 03/20/20 09:30 04/04/20 10:19 DC Piperacillin Sod/ Tazobactam Sod 3.375 gm/Sodium Chloride 50 ml @ 100 mls/hr Q6HRS 03/20/20 10:00 04/04/20 08:17 DC 04/04/20 06:03 Potassium Bicarbonate (Potassium Effervescent Tablet) 40 meq 1X ONCE 04/02/20 09:30 04/02/20 09:31 DC 04/02/20 09:34 Potassium Chloride 70 meq/ Potassium Phosphate 17 mmol/ Magnesium Sulfate 15 meq/ Multivitamins 5 ml/Zinc/Copper/ Manganese/ Selenium 1 ml/ Total Parenteral Nutrition/Amino Acids/Dextrose/ Fat Emulsion Intravenous 1,080 ml @ 45 mls/hr TPN CONT 04/06/20 22:00 04/06/20 13:22 DC Potassium Chloride/Water 100 ml @ 100 mls/hr 1X ONCE 04/05/20 12:00 04/05/20 12:59 DC Potassium Phosphate 13.6 mmol/Sodium Chloride 254.5333 ml @ 127.... Q2H 04/06/20 14:00 04/06/20 17:59 DC 04/06/20 17:37 Propofol 100 ml @ 0 mls/hr CONT PRN 03/26/20 19:15 04/05/20 18:53 DC 04/03/20 05:44 Sodium Bicarbonate (Sodium Bicarb Adult 8.4% Syr) 50 meq STK-MED ONCE 03/26/20 21:00 03/27/20 19:23 DC Sodium Chloride (Normal Saline Flush) 3 ml QSHIFT PRN 03/20/20 10:30 Sodium Chloride 45 meq/Potassium Chloride 50 meq/ Potassium Phosphate 17 mmol/ Magnesium Sulfate 15 meq/ Multivitamins 5 ml/Zinc/Copper/ Manganese/ Selenium 1 ml/ Total Parenteral Nutrition/Amino Acids/Dextrose/ Fat Emulsion Intravenous 1,080 ml @ 45 mls/hr TPN CONT 04/05/20 22:00 04/06/20 15:46 DC 04/05/20 22:34 Sodium Chloride 90 meq/Potassium Chloride 50 meq/ Potassium Phosphate 13.6 mmol/Magnesium Sulfate 15 meq/ Calcium Gluconate 10 meq/ Multivitamins 5 ml/Zinc/Copper/ Manganese/ Selenium 1 ml/ Total Parenteral Nutrition/Amino Acids/Dextrose/ Fat Emulsion Intravenous 1,512 ml @ 63 mls/hr TPN CONT 04/04/20 22:00 04/05/20 21:59 DC 04/04/20 20:50 Sodium Phosphate 15 mmol/Sodium Chloride 105 ml @ 105 mls/hr 1X ONCE 04/05/20 12:00 04/05/20 12:59 DC 04/05/20 13:18 Succinylcholine Chloride (Anectine) 200 mg STK-MED ONCE 03/26/20 23:34 03/26/20 23:35 DC Vancomycin HCl (Vancomycin Oral Solution) 125 mg BID 03/20/20 21:30 04/04/20 08:17 DC 04/03/20 08:17 LAB Lab: Laboratory Tests Test 04/08/20 06:45 White Blood Count 8.0 x10^3/uL (4.0-11.0) Red Blood Count 3.77 x10^6/uL (4.30-5.70) L Hemoglobin 9.2 g/dL (13.0-17.5) L Hematocrit 29.1 % (39.0-53.0) L Mean Corpuscular Volume 77 fL (79-100) L Mean Corpuscular Hemoglobin 25 pg (25-35) Mean Corpuscular Hemoglobin Concent 32 g/dL (31-37) Red Cell Distribution Width 18.8 % (11.5-14.5) H Platelet Count 699 x10^3/uL (140-400) H Neutrophils (%) (Auto) 51 % (31-73) Lymphocytes (%) (Auto) 38 % (24-48) Monocytes (%) (Auto) 8 % (0-9) Eosinophils (%) (Auto) 3 % (0-3) Basophils (%) (Auto) 0 % (0-3) Neutrophils # (Auto) 4.1 x10^3/uL (1.8-7.7) Lymphocytes # (Auto) 3.0 x10^3/uL (1.0-4.8) Monocytes # (Auto) 0.7 x10^3/uL (0.0-1.1) Eosinophils # (Auto) 0.2 x10^3/uL (0.0-0.7) Basophils # (Auto) 0.0 x10^3/uL (0.0-0.2) Sodium Level 142 mmol/L (136-145) Potassium Level 3.9 mmol/L (3.5-5.1) Chloride Level 106 mmol/L (98-107) Carbon Dioxide Level 24 mmol/L (21-32) Anion Gap 12 (6-14) Blood Urea Nitrogen 15 mg/dL (8-26) Creatinine 1.2 mg/dL (0.7-1.3) Estimated GFR (Cockcroft-Gault) 76.9 BUN/Creatinine Ratio 13 (6-20) Glucose Level 122 mg/dL (70-99) H Calcium Level 8.8 mg/dL (8.5-10.1) Total Bilirubin 0.5 mg/dL (0.2-1.0) Aspartate Amino Transferase (AST) 37 U/L (15-37) Alanine Aminotransferase (ALT) 26 U/L (16-63) Alkaline Phosphatase 78 U/L (46-116) Total Protein 8.1 g/dL (6.4-8.2) Albumin 2.9 g/dL (3.4-5.0) L Albumin/Globulin Ratio 0.6 (1.0-1.7) L Laboratory Tests 04/08/20 06:45 Laboratory Tests 04/08/20 06:45 ASSESSMENT & PLAN A&P Plan as noted above This note was created using [employer] and may have omissions and/or errors due to the nature of real-time voice geologist petroleum. Justifications for Admission Other Justification CARDIAC ARREST REJI MOORE MD Apr 08, 2020 15:16
[2020-04-08] MEDS: ATORVASTATIN CALCIUM 40 MG TABLET. PO SCH (20:58)
[2020-04-09 02:57] VITALS: BP 104/59
[2020-04-09 06:07] LABS: BASO % 0 % (0-3); EOS # 0.3 x10^3/uL (0.0-0.7); EOS % 4 % (0-3); HEMATOCRIT 28.8 % (39.0-53.0); HEMOGLOBIN 9.1 g/dL (13.0-17.5); LYMPH # 3.4 x10^3/uL (1.0-4.8); LYMPH % 43 % (24-48); MEAN CORPUSCULAR HEMOGLOBIN 24 pg (25-35); MEAN CORPUSCULAR HGB CONC 32 g/dL (31-37); MEAN CORPUSCULAR VOLUME 77 fL (79-100); MONO # 0.5 x10^3/uL (0.0-1.1); MONO % 7 % (0-9); NEUT # 3.6 x10^3/uL (1.8-7.7); NEUT % 46 % (31-73); PLATELET COUNT 713 x10^3/uL (140-400); RED BLOOD COUNT 3.76 x10^6/uL (4.30-5.70); RED CELL DISTRIBUTION WIDTH 18.9 % (11.5-14.5); WHITE BLOOD COUNT 7.9 x10^3/uL (4.0-11.0)
[2020-04-09 06:23] LABS: ALBUMIN 3.1 g/dL (3.4-5.0); ALBUMIN/GLOBULIN RATIO 0.6 (1.0-1.7); CREATININE 1.1 mg/dL (0.7-1.3); GFR 85.1; POTASSIUM 3.6 mmol/L (3.5-5.1); TOTAL BILIRUBIN 0.2 mg/dL (0.2-1.0); TOTAL PROTEIN 8.2 g/dL (6.4-8.2)
[2020-04-09 07:00] VITALS: BP 115/74
--- NOTE | 2020-04-09 08:08 | PDOC ---
Infectious Disease Note Subjective: Subjective Patient denies any complaints Vital Signs: Vital Signs Vital Signs Date Time Temp Pulse Resp B/P (MAP) Pulse Ox O2 Delivery O2 Flow Rate FiO2 04/09/20 02:57 99.7 69 18 104/59 (74) 96 Room Air 99.7 Physical Exam: PHYSICAL EXAM GENERAL: alert awake male on nasal O2 HEENT: Normocephalic atraumatic pupils equal, reactive. NECK: Supple. Central line present LUNGS: Clear anteriorly. HEART: S1, S2, no murmurs ABDOMEN: Obese, mildly distended. Bowel sounds present. EXTREMITIES: No edema or cyanosis. Superficial thrombophlebitis right upper extremity latter improved DERMATOLOGIC: Warm and dry. No generalized rash. NEUROLOGIC alert oriented x3 grossly nonfocal Medications: Inpatient Meds: Current Medications Medications (Trade) Dose Ordered Sig/Guy Start Time Stop Time Status Last Admin Dose Admin Acetaminophen (Tylenol) 650 mg PRN Q6HRS PRN 03/20/20 09:00 03/27/20 20:51 650 MG Amino Acids/ Glycerin/ Electrolytes 1,000 ml @ 80 mls/hr [id number] 04/04/20 11:30 04/04/20 21:59 DC 04/04/20 11:00 80 MLS/HR Amiodarone HCl (Cordarone) 400 mg DAILY 03/30/20 09:00 04/08/20 08:02 400 MG Amiodarone HCl 150 mg/Dextrose 103 ml @ 618 mls/hr 1X ONCE 03/26/20 19:45 03/26/20 19:54 DC 03/26/20 19:44 618 MLS/HR Amiodarone HCl 450 mg/Dextrose 259 ml @ 16.7 mls/hr CONT PRN 03/27/20 03:00 03/27/20 18:16 DC 03/27/20 18:15 16.7 MLS/HR Atorvastatin Calcium (Lipitor) 80 mg QHS 03/20/20 21:00 04/08/20 20:58 80 MG Atropine Sulfate (ATROPINE 0.5mg SYRINGE) 0.5 mg PRN Q5MIN PRN 03/27/20 01:45 03/27/20 16:31 DC Barium Sulfate (Varibar Thin Liquid Apple) 148 gm 1X ONCE 04/05/20 11:00 04/05/20 11:04 DC 04/05/20 12:30 148 GM Chlorhexidine Gluconate (Peridex) 15 ml BID 03/26/20 21:00 03/28/20 11:44 DC 03/27/20 20:51 15 ML Clopidogrel Bisulfate (Plavix) 75 mg [id number] 03/20/20 12:00 04/08/20 08:02 75 MG Dexmedetomidine HCl 400 mcg/ Sodium Chloride 100 ml @ 0 mls/hr CONT PRN 03/27/20 01:45 04/05/20 18:53 DC 04/03/20 01:36 9 MLS/HR Docusate Sodium (Colace Solution) 100 mg BID 03/20/20 09:00 03/26/20 15:28 DC 03/26/20 08:35 100 MG Dopamine HCl/ Dextrose 250 ml @ 17.681 mls/ hr CONT PRN 03/20/20 04:30 Enoxaparin Sodium (Lovenox 40mg Syringe) 40 mg Q24H 04/02/20 12:00 04/08/20 12:29 40 MG Epinephrine HCl (EPINEPHrine SYRINGE) 1 mg STK-MED ONCE 03/29/20 12:00 03/30/20 13:02 DC Etomidate (Amidate) 20 mg STK-MED ONCE 03/26/20 23:34 03/26/20 23:35 DC Famotidine (Pepcid Vial) 20 mg BID 03/20/20 11:00 03/20/20 12:35 DC Fentanyl Citrate 30 ml @ 0 mls/hr CONT PRN 03/26/20 19:15 UNV Fentanyl Citrate (Fentanyl 2ml Vial) 50 mcg PRN Q1HR PRN 03/26/20 19:15 04/04/20 02:45 50 MCG Furosemide (Lasix) 40 mg DAILY 03/22/20 11:00 04/08/20 08:05 40 MG Haloperidol Lactate (Haldol Inj) 5 mg PRN Q8HRS PRN 04/06/20 23:30 04/07/20 11:07 5 MG Heparin Sodium (Porcine) (Heparin Sodium) 2,400 unit PRN Q6HRS PRN 03/20/20 04:30 03/22/20 10:15 DC 03/21/20 14:17 2,400 UNIT Heparin Sodium/ Dextrose 250 ml @ 0 mls/hr CONT PRN 03/20/20 04:30 03/22/20 10:15 DC 03/21/20 22:15 19.8 MLS/HR Heparin Sodium/ Sodium Chloride (HEPARIN for ARTERIAL LINE FLUSH) 1,000 unit 1X ONCE 03/27/20 10:00 03/27/20 10:01 DC 03/27/20 10:00 1,000 UNIT Info (CONTRAST GIVEN -- Rx MONITORING) 1 each PRN DAILY PRN 03/27/20 10:00 03/29/20 09:59 DC Info (Icu Electrolyte Protocol) 1 ea DAILY 03/21/20 09:00 04/05/20 18:53 DC 04/05/20 09:00 1 EA Info (Non-Icu Electrolyte Protocol) 1 ea CONT PRN PRN 04/05/20 19:00 Info (Tpn Per Pharmacy) 1 each PRN DAILY PRN 04/04/20 11:00 04/06/20 13:20 DC 04/05/20 10:41 1 EACH Iodixanol (Visipaque 320) 100 ml 1X ONCE 03/27/20 10:00 03/27/20 10:01 DC 03/27/20 11:05 107 ML Labetalol HCl (Normodyne Iv Push) 10 mg PRN Q2HR PRN 03/26/20 19:15 Lidocaine HCl (Lidocaine 1% 20ml Vial) 20 ml 1X ONCE 03/27/20 10:00 03/27/20 10:01 DC 03/27/20 10:41 13 ML Lidocaine HCl (Lidocaine HCl 2% Abboject) 100 mg STK-MED ONCE 03/29/20 12:00 03/30/20 13:02 DC Linezolid/Dextrose 300 ml @ 300 mls/hr Q12HR 03/21/20 09:00 03/28/20 08:39 DC 03/28/20 08:19 300 MLS/HR Lisinopril (Prinivil) 5 mg DAILY 04/07/20 09:00 04/08/20 12:30 5 MG Lorazepam (Ativan Inj) 2 mg PRN Q4HRS PRN 04/06/20 23:30 Magnesium Sulfate 50 ml @ 25 mls/hr 1X ONCE 04/02/20 12:00 04/02/20 13:59 DC 04/02/20 11:47 25 MLS/HR Metoprolol Succinate (Toprol Xl) 50 mg DAILY 04/06/20 14:30 04/07/20 11:25 DC 04/06/20 14:30 50 MG Metoprolol Tartrate (Lopressor Vial) 5 mg Q6HRS 04/05/20 10:00 04/06/20 11:55 DC 04/06/20 05:49 5 MG Midazolam HCl 100 ml @ 0 mls/hr CONT PRN 03/26/20 19:15 04/05/20 18:53 DC 04/01/20 12:21 5 MLS/HR Milrinone Lactate/ Dextrose 100 ml @ 6.735 mls/ hr CONT PRN 03/30/20 15:30 04/06/20 14:23 DC 04/01/20 20:33 6.735 MLS/HR Morphine Sulfate (Morphine Sulfate) 4 mg PRN Q1HR PRN 03/26/20 19:15 03/28/20 22:35 DC Nicardipine HCl 50 mg/Sodium Chloride 250 ml @ 25 mls/hr CONT PRN 04/02/20 12:00 04/06/20 14:23 DC 04/04/20 17:16 12.5 MLS/HR Non-Formulary Medication (ABACAVIR/ DOLUTEGRAVIR/ LAMIVUDINE (Triumeq) tablet) 1 ea DAILY 03/20/20 17:00 04/08/20 08:03 1 EA Norepinephrine Bitartrate 8 mg/ Dextrose 258 ml @ 18.247 mls/ hr CONT PRN 03/20/20 04:15 04/06/20 10:08 DC 03/28/20 19:12 18.247 MLS/HR Olanzapine (ZyPREXA ZYDIS) 5 mg PRN Q4HRS PRN 03/26/20 19:15 04/09/20 01:21 5 MG Ondansetron HCl (Zofran) 4 mg PRN Q6HRS PRN 03/20/20 10:30 04/04/20 05:24 4 MG Pantoprazole Sodium (PROTONIX VIAL for IV PUSH) 40 mg DAILYAC 03/20/20 12:30 04/06/20 10:06 DC 04/06/20 08:39 40 MG Pantoprazole Sodium (Protonix) 40 mg DAILYAC 04/07/20 07:30 04/08/20 08:02 40 MG Piperacillin Sod/ Tazobactam Sod (Zosyn Per Pharmacy) 1 each PRN DAILY PRN 03/20/20 09:30 04/04/20 10:19 DC Piperacillin Sod/ Tazobactam Sod 3.375 gm/Sodium Chloride 50 ml @ 100 mls/hr Q6HRS 03/20/20 10:00 04/04/20 08:17 DC 04/04/20 06:03 100 MLS/HR Potassium Bicarbonate (Potassium Effervescent Tablet) 40 meq 1X ONCE 04/02/20 09:30 04/02/20 09:31 DC 04/02/20 09:34 40 MEQ Potassium Chloride 70 meq/ Potassium Phosphate 17 mmol/ Magnesium Sulfate 15 meq/ Multivitamins 5 ml/Zinc/Copper/ Manganese/ Selenium 1 ml/ Total Parenteral Nutrition/Amino Acids/Dextrose/ Fat Emulsion Intravenous 1,080 ml @ 45 mls/hr TPN CONT 04/06/20 22:00 04/06/20 13:22 DC Potassium Chloride/Water 100 ml @ 100 mls/hr 1X ONCE 04/05/20 12:00 04/05/20 12:59 DC Potassium Phosphate 13.6 mmol/Sodium Chloride 254.5333 ml @ 127.... Q2H 04/06/20 14:00 04/06/20 17:59 DC 04/06/20 17:37 127.267 MLS/HR Propofol 100 ml @ 0 mls/hr CONT PRN 03/26/20 19:15 04/05/20 18:53 DC 04/03/20 05:44 18.7 MLS/HR Sodium Bicarbonate (Sodium Bicarb Adult 8.4% Syr) 50 meq STK-MED ONCE 03/26/20 21:00 03/27/20 19:23 DC Sodium Chloride (Normal Saline Flush) 3 ml QSHIFT PRN 03/20/20 10:30 Sodium Chloride 45 meq/Potassium Chloride 50 meq/ Potassium Phosphate 17 mmol/ Magnesium Sulfate 15 meq/ Multivitamins 5 ml/Zinc/Copper/ Manganese/ Selenium 1 ml/ Total Parenteral Nutrition/Amino Acids/Dextrose/ Fat Emulsion Intravenous 1,080 ml @ 45 mls/hr TPN CONT 04/05/20 22:00 04/06/20 15:46 DC 04/05/20 22:34 45 MLS/HR Sodium Chloride 90 meq/Potassium Chloride 50 meq/ Potassium Phosphate 13.6 mmol/Magnesium Sulfate 15 meq/ Calcium Gluconate 10 meq/ Multivitamins 5 ml/Zinc/Copper/ Manganese/ Selenium 1 ml/ Total Parenteral Nutrition/Amino Acids/Dextrose/ Fat Emulsion Intravenous 1,512 ml @ 63 mls/hr TPN CONT 04/04/20 22:00 04/05/20 21:59 DC 04/04/20 20:50 63 MLS/HR Sodium Phosphate 15 mmol/Sodium Chloride 105 ml @ 105 mls/hr 1X ONCE 04/05/20 12:00 04/05/20 12:59 DC 04/05/20 13:18 105 MLS/HR Succinylcholine Chloride (Anectine) 200 mg STK-MED ONCE 03/26/20 23:34 03/26/20 23:35 DC Vancomycin HCl (Vancomycin Oral Solution) 125 mg BID 03/20/20 21:30 04/04/20 08:17 DC 04/03/20 08:17 125 MG Labs: Lab Laboratory Tests Test 04/08/20 22:50 04/09/20 05:50 SARS-CoV-2 Antigen (Rapid) Negative (NEGATIVE) White Blood Count 7.9 x10^3/uL (4.0-11.0) Red Blood Count 3.76 x10^6/uL (4.30-5.70) Hemoglobin 9.1 g/dL (13.0-17.5) Hematocrit 28.8 % (39.0-53.0) Mean Corpuscular Volume 77 fL (79-100) Mean Corpuscular Hemoglobin 24 pg (25-35) Mean Corpuscular Hemoglobin Concent 32 g/dL (31-37) Red Cell Distribution Width 18.9 % (11.5-14.5) Platelet Count 713 x10^3/uL (140-400) Neutrophils (%) (Auto) 46 % (31-73) Lymphocytes (%) (Auto) 43 % (24-48) Monocytes (%) (Auto) 7 % (0-9) Eosinophils (%) (Auto) 4 % (0-3) Basophils (%) (Auto) 0 % (0-3) Neutrophils # (Auto) 3.6 x10^3/uL (1.8-7.7) Lymphocytes # (Auto) 3.4 x10^3/uL (1.0-4.8) Monocytes # (Auto) 0.5 x10^3/uL (0.0-1.1) Eosinophils # (Auto) 0.3 x10^3/uL (0.0-0.7) Basophils # (Auto) 0.0 x10^3/uL (0.0-0.2) Sodium Level 141 mmol/L (136-145) Potassium Level 3.6 mmol/L (3.5-5.1) Chloride Level 105 mmol/L (98-107) Carbon Dioxide Level 25 mmol/L (21-32) Anion Gap 11 (6-14) Blood Urea Nitrogen 11 mg/dL (8-26) Creatinine 1.1 mg/dL (0.7-1.3) Estimated GFR (Cockcroft-Gault) 85.1 BUN/Creatinine Ratio 10 (6-20) Glucose Level 122 mg/dL (70-99) Calcium Level 9.0 mg/dL (8.5-10.1) Total Bilirubin 0.2 mg/dL (0.2-1.0) Aspartate Amino Transf (AST/SGOT) 37 U/L (15-37) Alanine Aminotransferase (ALT/SGPT) 33 U/L (16-63) Alkaline Phosphatase 84 U/L (46-116) Total Protein 8.2 g/dL (6.4-8.2) Albumin 3.1 g/dL (3.4-5.0) Albumin/Globulin Ratio 0.6 (1.0-1.7) Objective: Assessment: 1. Fever, likely aspiration. Resolved 2. Witnessed cardiac arrest, status post defibrillation. 3. Leukocytosis and lactic acidosis. 4. Human immunodeficiency virus, stable CD4 496 March 2019 was 403 on 01/16 viral load less than 20 on 01/23,on Triumeq. 5. Acute hypoxic respiratory failure Extubated, reintubated Mar 26 6. History of ventricular tachycardia, Coronary artery disease, status post PCI. 7. 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 8. History of acute kidney injury, on hemodialysis in the past. 9. 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 10. Substance dependence. UDS positive for cocaine at outside hospital. 11. Hypertension/hyperlipidemia 12. Hypokalemia/hypomagnesemia. 13. H/O Chronic systolic congestive heart failure. 14. History of rectal abscess. 15. History of Necrotizing Pneumonia with Klebsiella at [facility] November 2019 16. V. fib arrest, torsades here on Mar 26 19. Severe cardiomyopathy 20. Anemia of chronic disease 21. History of noncompliance 22. Oropharyngeal dysphagia,hoarseness of voice,chronic Plan: Plan of Care Monitor off antibiotics Continue Triumeq, Maintain aspiration precautions Continue supportive care narayanan discontinued DC central line if able Discussed with nursing. MILLY NICOLE MD Apr 09, 2020 08:08
[2020-04-09] MEDS: AMIODARONE HCL 200 MG TABLET. PO SCH (09:28)
[2020-04-09] MEDS: FUROSEMIDE 40 MG/4 ML VIAL. IVP SCH (09:29)
[2020-04-09] MEDS: CLOPIDOGREL BISULFATE 75 MG TABLET PO SCH (09:29)
[2020-04-09] MEDS: PANTOPRAZOLE 40 MG TABLET.DR. PO SCH (09:29)
[2020-04-09] MEDS: LISINOPRIL 5 MG TABLET. PO SCH (09:29)
[2020-04-09] MEDS: METOPROLOL SUCC 24HR ER 50 MG TAB.ER.24H. PO SCH (09:29)
[2020-04-09] MEDS: ABACAVIR PO SCH (09:32)
[2020-04-09] MEDS: LAMIVUDINE PO SCH (09:32)
[2020-04-09] MEDS: DOLUTEGRAVIR PO SCH (09:32)
--- NOTE | 2020-04-09 10:07 | NUR ---
SS following up with discharge planning. SS reviewed pt chart and discussed with pt RN. Pt is currently on room air. Pt accepted at [facility], ; fax [phone], pending COVID19 test result from 04/08/2020 and updated PT/OT notes. Pt was negative on rapid test. PT/OT in room with pt at this time. [place] is checking with infectious disease to see if rapid test can be accepted or if PCR is needed. SS will send PT/OT notes from today once received. Pt ready for discharge. SS discussed with pt and pt's partner, [place], . Pt and pt's partner currently agreeable to discharge plan. SS will continue to follow for discharge planning.
--- NOTE | 2020-04-09 10:18 | PDOC ---
Date of Service: DATE: 04/09/20 TIME: 10:14 Subjective: Subjective: Doing okay. Objective: Objective: No GI concerns per nurse. Vital Signs: Vital Signs Date Time Temp Pulse Resp B/P (MAP) Pulse Ox O2 Delivery O2 Flow Rate FiO2 04/09/20 09:29 93 115/74 04/09/20 07:00 98.4 16 98 Room Air 98.4 Labs: Laboratory Tests Test 04/08/20 22:50 04/09/20 05:50 SARS-CoV-2 Antigen (Rapid) Negative White Blood Count 7.9 x10^3/uL Red Blood Count 3.76 x10^6/uL Hemoglobin 9.1 g/dL Hematocrit 28.8 % Mean Corpuscular Volume 77 fL Mean Corpuscular Hemoglobin 24 pg Mean Corpuscular Hemoglobin Concent 32 g/dL Red Cell Distribution Width 18.9 % Platelet Count 713 x10^3/uL Neutrophils (%) (Auto) 46 % Lymphocytes (%) (Auto) 43 % Monocytes (%) (Auto) 7 % Eosinophils (%) (Auto) 4 % Basophils (%) (Auto) 0 % Neutrophils # (Auto) 3.6 x10^3/uL Lymphocytes # (Auto) 3.4 x10^3/uL Monocytes # (Auto) 0.5 x10^3/uL Eosinophils # (Auto) 0.3 x10^3/uL Basophils # (Auto) 0.0 x10^3/uL Sodium Level 141 mmol/L Potassium Level 3.6 mmol/L Chloride Level 105 mmol/L Carbon Dioxide Level 25 mmol/L Anion Gap 11 Blood Urea Nitrogen 11 mg/dL Creatinine 1.1 mg/dL Estimated GFR (Cockcroft-Gault) 85.1 BUN/Creatinine Ratio 10 Glucose Level 122 mg/dL Calcium Level 9.0 mg/dL Total Bilirubin 0.2 mg/dL Aspartate Amino Transf (AST/SGOT) 37 U/L Alanine Aminotransferase (ALT/SGPT) 33 U/L Alkaline Phosphatase 84 U/L Total Protein 8.2 g/dL Albumin 3.1 g/dL Albumin/Globulin Ratio 0.6 PE: GEN: NAD LUNGS: CTAB HEART: RRR ABD: soft, non-distended NEURO/PSYCH: probably confused A/P: S/p arrests Anemia - stable, on Plavix H/o GI bleeding - none here COVID negative (again) 04/08 H/o substance abuse -- Stable GI-suarez, continue same. Dc per primary. Justicifation of Admission Dx: Justifications for Admission: Justification of Admission Dx: Yes YNES CLEARY Apr 09, 2020 10:18
--- NOTE | 2020-04-09 10:39 | PDOC ---
PROGRESS NOTES Date of Service DATE: 04/09/20 TIME: 10:37 Assessment Anoxic encephalopathy following V. tach cardiac arrest, head CT negative. Coronary artery disease status-post stent, cardiomyopathy requiring defibrillator placement which has not been done yet due to his drug use. HIV, pacemaker, hyperlipidemia, hypertension, pneumonia, gastrointestinal bleeding, history of acute kidney injury requiring dialysis, no longer on this, alcohol and substance abuse Received his life vest Plan Continue current supportive care. Okay for discharge to [facility] Follow-up with neurology as needed Subjective None Objective Vital Signs Date Time Temp Pulse Resp B/P (MAP) Pulse Ox O2 Delivery O2 Flow Rate FiO2 04/09/20 09:29 93 115/74 04/09/20 07:00 98.4 16 98 Room Air 98.4 Intake and Output 04/09/20 07:00 Intake Total 820 ml Output Total 1400 ml Balance -580 ml Intake Oral 820 ml Output Urine Total 1400 ml # Voids 1 PHYSICAL EXAM Alert knows name, month, knows that he is in the hospital [facility]. EOMI. CN: no focal findings. Muscle tone: normal. Muscle strength: 3/5 DTR: 1+ Plantar reflex: Flexor Gait: not examined in bed. Sensory exam: no abnormal findings. No cerebellar signs elicited. Review of Relevant I have reviewed the following items joel (where applicable) has been applied. Labs Laboratory Tests Test 04/08/20 06:45 04/08/20 22:50 04/09/20 05:50 White Blood Count 8.0 x10^3/uL (4.0-11.0) 7.9 x10^3/uL (4.0-11.0) Red Blood Count 3.77 x10^6/uL (4.30-5.70) 3.76 x10^6/uL (4.30-5.70) Hemoglobin 9.2 g/dL (13.0-17.5) 9.1 g/dL (13.0-17.5) Hematocrit 29.1 % (39.0-53.0) 28.8 % (39.0-53.0) Mean Corpuscular Volume 77 fL (79-100) 77 fL (79-100) Mean Corpuscular Hemoglobin 25 pg (25-35) 24 pg (25-35) Mean Corpuscular Hemoglobin Concent 32 g/dL (31-37) 32 g/dL (31-37) Red Cell Distribution Width 18.8 % (11.5-14.5) 18.9 % (11.5-14.5) Platelet Count 699 x10^3/uL (140-400) 713 x10^3/uL (140-400) Neutrophils (%) (Auto) 51 % (31-73) 46 % (31-73) Lymphocytes (%) (Auto) 38 % (24-48) 43 % (24-48) Monocytes (%) (Auto) 8 % (0-9) 7 % (0-9) Eosinophils (%) (Auto) 3 % (0-3) 4 % (0-3) Basophils (%) (Auto) 0 % (0-3) 0 % (0-3) Neutrophils # (Auto) 4.1 x10^3/uL (1.8-7.7) 3.6 x10^3/uL (1.8-7.7) Lymphocytes # (Auto) 3.0 x10^3/uL (1.0-4.8) 3.4 x10^3/uL (1.0-4.8) Monocytes # (Auto) 0.7 x10^3/uL (0.0-1.1) 0.5 x10^3/uL (0.0-1.1) Eosinophils # (Auto) 0.2 x10^3/uL (0.0-0.7) 0.3 x10^3/uL (0.0-0.7) Basophils # (Auto) 0.0 x10^3/uL (0.0-0.2) 0.0 x10^3/uL (0.0-0.2) Sodium Level 142 mmol/L (136-145) 141 mmol/L (136-145) Potassium Level 3.9 mmol/L (3.5-5.1) 3.6 mmol/L (3.5-5.1) Chloride Level 106 mmol/L (98-107) 105 mmol/L (98-107) Carbon Dioxide Level 24 mmol/L (21-32) 25 mmol/L (21-32) Anion Gap 12 (6-14) 11 (6-14) Blood Urea Nitrogen 15 mg/dL (8-26) 11 mg/dL (8-26) Creatinine 1.2 mg/dL (0.7-1.3) 1.1 mg/dL (0.7-1.3) Estimated GFR (Cockcroft-Gault) 76.9 85.1 BUN/Creatinine Ratio 13 (6-20) 10 (6-20) Glucose Level 122 mg/dL (70-99) 122 mg/dL (70-99) Calcium Level 8.8 mg/dL (8.5-10.1) 9.0 mg/dL (8.5-10.1) Total Bilirubin 0.5 mg/dL (0.2-1.0) 0.2 mg/dL (0.2-1.0) Aspartate Amino Transf (AST/SGOT) 37 U/L (15-37) 37 U/L (15-37) Alanine Aminotransferase (ALT/SGPT) 26 U/L (16-63) 33 U/L (16-63) Alkaline Phosphatase 78 U/L (46-116) 84 U/L (46-116) Total Protein 8.1 g/dL (6.4-8.2) 8.2 g/dL (6.4-8.2) Albumin 2.9 g/dL (3.4-5.0) 3.1 g/dL (3.4-5.0) Albumin/Globulin Ratio 0.6 (1.0-1.7) 0.6 (1.0-1.7) SARS-CoV-2 Antigen (Rapid) Negative (NEGATIVE) Laboratory Tests Test 04/08/20 22:50 04/09/20 05:50 SARS-CoV-2 Antigen (Rapid) Negative (NEGATIVE) White Blood Count 7.9 x10^3/uL (4.0-11.0) Red Blood Count 3.76 x10^6/uL (4.30-5.70) Hemoglobin 9.1 g/dL (13.0-17.5) Hematocrit 28.8 % (39.0-53.0) Mean Corpuscular Volume 77 fL (79-100) Mean Corpuscular Hemoglobin 24 pg (25-35) Mean Corpuscular Hemoglobin Concent 32 g/dL (31-37) Red Cell Distribution Width 18.9 % (11.5-14.5) Platelet Count 713 x10^3/uL (140-400) Neutrophils (%) (Auto) 46 % (31-73) Lymphocytes (%) (Auto) 43 % (24-48) Monocytes (%) (Auto) 7 % (0-9) Eosinophils (%) (Auto) 4 % (0-3) Basophils (%) (Auto) 0 % (0-3) Neutrophils # (Auto) 3.6 x10^3/uL (1.8-7.7) Lymphocytes # (Auto) 3.4 x10^3/uL (1.0-4.8) Monocytes # (Auto) 0.5 x10^3/uL (0.0-1.1) Eosinophils # (Auto) 0.3 x10^3/uL (0.0-0.7) Basophils # (Auto) 0.0 x10^3/uL (0.0-0.2) Sodium Level 141 mmol/L (136-145) Potassium Level 3.6 mmol/L (3.5-5.1) Chloride Level 105 mmol/L (98-107) Carbon Dioxide Level 25 mmol/L (21-32) Anion Gap 11 (6-14) Blood Urea Nitrogen 11 mg/dL (8-26) Creatinine 1.1 mg/dL (0.7-1.3) Estimated GFR (Cockcroft-Gault) 85.1 BUN/Creatinine Ratio 10 (6-20) Glucose Level 122 mg/dL (70-99) Calcium Level 9.0 mg/dL (8.5-10.1) Total Bilirubin 0.2 mg/dL (0.2-1.0) Aspartate Amino Transf (AST/SGOT) 37 U/L (15-37) Alanine Aminotransferase (ALT/SGPT) 33 U/L (16-63) Alkaline Phosphatase 84 U/L (46-116) Total Protein 8.2 g/dL (6.4-8.2) Albumin 3.1 g/dL (3.4-5.0) Albumin/Globulin Ratio 0.6 (1.0-1.7) Microbiology 03/26/20 Urine Culture - Final, Complete 03/21/20 Gram Stain Evaluation - Final, Complete 03/21/20 Respiratory Culture - Final, Complete 03/20/20 Blood Culture - Final, Complete NO GROWTH AFTER 5 DAYS Medications Current Medications Norepinephrine Bitartrate 8 mg/ Dextrose 258 ml @ 18.247 mls/ hr CONT PRN IV PER PROTOCOL Last administered on 03/28/20at 19:12; Start 03/20/20 at 04:15; Stop 04/06/20 at 10:08; Status DC Dopamine HCl/ Dextrose 250 ml @ 17.681 mls/ hr CONT PRN IV SEE I/O RECORD; Start 03/20/20 at 04:30 Heparin Sodium/ Dextrose 250 ml @ 0 mls/hr CONT PRN IV PER PROTOCOL Last administered on 03/21/20at 22:15; Start 03/20/20 at 04:30; Stop 03/22/20 at 10:15; Status DC Heparin Sodium (Porcine) (Heparin Sodium) 2,400 unit PRN Q6HRS PRN IV FOR UFH LEVEL LESS THAN 0.2 Last administered on 03/21/20at 14:17; Start 03/20/20 at 04:30; Stop 03/22/20 at 10:15; Status DC Fentanyl Citrate 30 ml @ 0 mls/hr CONT PRN IV SEE PROTOCOL Last administered on 03/23/20at 06:19; Start 03/20/20 at 04:45; Stop 03/23/20 at 19:11; Status DC Lorazepam (Ativan Inj) 1 mg PRN Q1HR PRN IV SEE COMMENTS Last administered on 03/26/20at 14:30; Start 03/20/20 at 04:45; Stop 03/26/20 at 15:29; Status DC Fentanyl Citrate (Fentanyl 2ml Vial) 25 mcg PRN Q1HR PRN IV SEE COMMENTS; Start 03/20/20 at 04:45; Stop 03/26/20 at 15:29; Status DC Fentanyl Citrate (Fentanyl 2ml Vial) 50 mcg PRN Q1HR PRN IV SEE COMMENTS; Start 03/20/20 at 04:45; Stop 03/26/20 at 15:29; Status DC Chlorhexidine Gluconate (Peridex) 15 ml BID MM ; Start 03/20/20 at 09:00; Stop 03/20/20 at 07:24; Status DC Famotidine (Pepcid Vial) 20 mg BID IVP Last administered on 03/20/20at 08:07; Start 03/20/20 at 09:00; Stop 03/20/20 at 12:52; Status DC Morphine Sulfate (Morphine Sulfate) 2 mg PRN Q1HR PRN IV SEE COMMENTS.; Start 03/20/20 at 04:45; Stop 03/26/20 at 04:43; Status DC Morphine Sulfate (Morphine Sulfate) 4 mg PRN Q1HR PRN IV SEE COMMENTS.; Start 03/20/20 at 04:45; Stop 03/26/20 at 04:43; Status DC Midazolam HCl 100 ml @ 0 mls/hr CONT PRN IV SEE PROTOCOL Last administered on 03/26/20at 02:42; Start 03/20/20 at 04:45; Stop 03/26/20 at 15:29; Status DC Docusate Sodium (Colace Solution) 100 mg BID NG Last administered on 03/26/20at 08:35; Start 03/20/20 at 09:00; Stop 03/26/20 at 15:28; Status DC Sodium Chloride 1,000 ml @ 55 mls/hr [id number] IV Last administered on 04/02/20at 19:36; Start 03/20/20 at 06:30; Stop 04/03/20 at 06:08; Status DC Acetaminophen (Tylenol) 650 mg PRN Q6HRS PRN PEG MILD PAIN / TEMP > 100.3'F Last administered on 03/27/20at 20:51; Start 03/20/20 at 09:00 Piperacillin Sod/ Tazobactam Sod (Zosyn Per Pharmacy) 1 each PRN DAILY PRN MC SEE COMMENTS; Start 03/20/20 at 09:30; Stop 04/04/20 at 10:19; Status DC Piperacillin Sod/ Tazobactam Sod 3.375 gm/Sodium Chloride 50 ml @ 100 mls/hr Q6HRS IV Last administered on 04/04/20at 06:03; Start 03/20/20 at 10:00; Stop 04/04/20 at 08:17; Status DC Magnesium Sulfate 50 ml @ 25 mls/hr 1X ONCE IV Last administered on 03/20/20at 10:21; Start 03/20/20 at 09:45; Stop 03/20/20 at 11:44; Status DC Clopidogrel Bisulfate (Plavix) 75 mg [id number] PO Last administered on 04/09/20at 09:29; Start 03/20/20 at 12:00 Atorvastatin Calcium (Lipitor) 80 mg QHS PO Last administered on 04/08/20 20:58; Start 03/20/20 at 21:00 Ondansetron HCl (Zofran) 4 mg PRN Q6HRS PRN IVP NAUSEA/VOMITING Last administered on 04/04/20 05:24; Start 03/20/20 at 10:30 Famotidine (Pepcid Vial) 20 mg BID IVP ; Start 03/20/20 at 11:00; Stop 03/20/20 at 12:35; Status DC Info (Icu Electrolyte Protocol) 1 ea DAILY MC Last administered on 04/05/20 09:00; Start 03/21/20 at 09:00; Stop 04/05/20 at 18:53; Status DC Sodium Chloride (Normal Saline Flush) 3 ml QSHIFT PRN IV AFTER MEDS AND BLOOD DRAWS; Start 03/20/20 at 10:30 Pantoprazole Sodium (PROTONIX VIAL for IV PUSH) 40 mg DAILYAC IVP Last administered on 04/06/20 08:39; Start 03/20/20 at 12:30; Stop 04/06/20 at 10:06; Status DC Potassium Bicarbonate (Potassium Effervescent Tablet) 40 meq 1X ONCE PEG Last administered on 03/20/20at 14:47; Start 03/20/20 at 14:00; Stop 03/20/20 at 14:20; Status DC Non-Formulary Medication (ABACAVIR/ DOLUTEGRAVIR/ LAMIVUDINE (Triumeq) tablet) 1 ea DAILY PO Last administered on 04/09/20 09:32; Start 03/20/20 at 17:00 Vancomycin HCl (Vancomycin Oral Solution) 125 mg BID PO Last administered on 04/03/20 08:17; Start 03/20/20 at 21:30; Stop 04/04/20 at 08:17; Status DC Linezolid/Dextrose 300 ml @ 300 mls/hr Q12HR IV Last administered on 03/28/20 08:19; Start 03/21/20 at 09:00; Stop 03/28/20 at 08:39; Status DC Furosemide (Lasix) 40 mg DAILY IVP Last administered on 04/09/20 09:29; Start 03/22/20 at 11:00 Potassium Chloride/Water 100 ml @ 50 mls/hr 1X ONCE IV Last administered on 03/22/20at 12:58; Start 03/22/20 at 10:30; Stop 03/22/20 at 12:29; Status DC Fentanyl Citrate 55 ml @ 0 mls/hr CONT PRN IV SEE PROTOCOL Last administered on 04/03/20at 00:18; Start 03/23/20 at 19:15; Stop 04/05/20 at 18:53; Status DC Dexmedetomidine HCl 400 mcg/ Sodium Chloride 100 ml @ 0 mls/hr CONT PRN IV PER PROTOCOL Last administered on 03/24/20at 03:33; Start 03/23/20 at 21:00; Stop 03/24/20 at 08:52; Status DC Sodium Chloride 500 ml @ 500 mls/hr 1X PRN PRN IV SEE COMMENTS; Start 03/23/20 at 21:00 Atropine Sulfate (ATROPINE 0.5mg SYRINGE) 0.5 mg PRN Q5MIN PRN IV SEE COMMENTS; Start 03/23/20 at 21:00; Stop 04/06/20 at 10:08; Status DC Haloperidol Lactate (Haldol Inj) 5 mg PRN Q6HRS PRN IVP AGITATION; Start 03/23/20 at 21:00; Stop 03/24/20 at 08:52; Status DC Propofol 100 ml @ 2.748 mls/ hr CONT PRN IV PER PROTOCOL Last administered on 03/25/20at 01:17; Start 03/24/20 at 09:00; Stop 03/26/20 at 15:31; Status DC Potassium Chloride/Water 100 ml @ 100 mls/hr Q1H IV Last administered on 03/25/20at 19:02; Start 03/25/20 at 10:00; Stop 03/25/20 at 17:59; Status DC Potassium Chloride/Water 100 ml @ 100 mls/hr Q1H IV ; Start 03/25/20 at 15:00; Stop 03/25/20 at 13:59; Status DC Potassium Bicarbonate (Potassium Effervescent Tablet) 40 meq 1X ONCE PO Last administered on 03/26/20at 08:36; Start 03/26/20 at 08:15; Stop 03/26/20 at 08:22; Status DC Propofol 100 ml @ As Directed STK-MED ONCE IV ; Start 03/26/20 at 19:07; Stop at 19:07; Status DC Fentanyl Citrate 30 ml @ 0 mls/hr CONT PRN IV SEE PROTOCOL; Start 03/26/20 at 19:15; Status Cancel Propofol 100 ml @ 0 mls/hr CONT PRN IV PER PROTOCOL; Start 03/26/20 at 19:15; Status Cancel Fentanyl Citrate (Fentanyl 2ml Vial) 25 mcg PRN Q1HR PRN IV SEE COMMENTS Last administered on 04/03/20at 21:02; Start 03/26/20 at 19:15 Fentanyl Citrate (Fentanyl 2ml Vial) 50 mcg PRN Q1HR PRN IV SEE COMMENTS Last administered on 04/04/20at 02:45; Start 03/26/20 at 19:15 Chlorhexidine Gluconate (Peridex) 15 ml BID MM Last administered on 03/27/20at 20:51; Start 03/26/20 at 21:00; Stop 03/28/20 at 11:44; Status DC Morphine Sulfate (Morphine Sulfate) 2 mg PRN Q1HR PRN IV SEE COMMENTS.; Start 03/26/20 at 19:15; Status Cancel Morphine Sulfate (Morphine Sulfate) 2 mg PRN Q1HR PRN IV SEE COMMENTS.; Start 03/26/20 at 19:15; Stop 03/28/20 at 22:35; Status DC Morphine Sulfate (Morphine Sulfate) 4 mg PRN Q1HR PRN IV SEE COMMENTS.; Start 03/26/20 at 19:15; Stop 03/28/20 at 22:35; Status DC Olanzapine (ZyPREXA ZYDIS) 5 mg PRN Q4HRS PRN PO AGITATION, DELIRIUM Last administered on 04/09/20at 01:21; Start 03/26/20 at 19:15 Labetalol HCl (Normodyne Iv Push) 10 mg PRN Q2HR PRN IVP HYPERTENSION; Start 03/26/20 at 19:15 Fentanyl Citrate 30 ml @ 0 mls/hr CONT PRN IV SEE PROTOCOL; Start 03/26/20 at 19:15; Status UNV Propofol 100 ml @ 0 mls/hr CONT PRN IV PER PROTOCOL Last administered on 04/03at 05:44; Start 03/26/20 at 19:15; Stop 04/05/20 at 18:53; Status DC Midazolam HCl 100 ml @ 0 mls/hr CONT PRN IV SEE PROTOCOL Last administered on 04/01/20at 12:21; Start 03/26/20 at 19:15; Stop 04/05/20 at 18:53; Status DC Amiodarone HCl 150 mg/Dextrose 103 ml @ 618 mls/hr 1X ONCE IV Last administered on 03/26/20at 19:44; Start 03/26/20 at 19:45; Stop 03/26/20 at 19:54; Status DC Amiodarone HCl 450 mg/Dextrose 259 ml @ 0 mls/hr 1X ONCE IV Last administered on 03/26/20at 19:45; Start 03/26/20 at 19:45; Stop 03/26/20 at 19:46; Status DC Potassium Chloride/Water 100 ml @ 100 mls/hr Q1H IV Last administered on 03/27/20at 00:44; Start 03/26/20 at 21:00; Stop 03/27/20 at 00:59; Status DC Sodium Chloride 500 ml @ 500 mls/hr 1X ONCE IV Last administered on 03/26/20at 21:09; Start 03/26/20 at 21:15; Stop 03/26/20 at 22:14; Status DC Magnesium Sulfate 100 ml @ 50 mls/hr DAILY IV Last administered on 03/26/20at 22:23; Start 03/26/20 at 22:00; Stop 03/29/20 at 03:54; Status DC Etomidate (Amidate) 20 mg STK-MED ONCE IV ; Start 03/26/20 at 23:34; Stop 03/26/20 at 23:35; Status DC Succinylcholine Chloride (Anectine) 200 mg STK-MED ONCE .ROUTE ; Start 03/26/20 at 23:34; Stop 03/26/20 at 23:35; Status DC Lidocaine HCl (Lidocaine HCl 2% Abboject) 80 mg 1X ONCE IV Last administered on 03/27/20at 01:50; Start 03/27/20 at 02:00; Stop 03/27/20 at 02:01; Status DC Potassium Chloride/Water 100 ml @ 100 mls/hr Q1H IV Last administered on 03/27/20at 07:24; Start 03/27/20 at 02:00; Stop 03/27/20 at 05:59; Status DC Dexmedetomidine HCl 400 mcg/ Sodium Chloride 100 ml @ 0 mls/hr CONT PRN IV PER PROTOCOL Last administered on 04/03/20at 01:36; Start 03/27/20 at 01:45; Stop 04/05/20 at 18:53; Status DC Sodium Chloride 500 ml @ 500 mls/hr 1X PRN PRN IV SEE COMMENTS; Start 03/27/20 at 01:45; Status Cancel Atropine Sulfate (ATROPINE 0.5mg SYRINGE) 0.5 mg PRN Q5MIN PRN IV SEE COMMENTS; Start 03/27/20 at 01:45; Stop 03/27/20 at 16:31; Status DC Amiodarone HCl 450 mg/Dextrose 259 ml @ 16.7 mls/hr CONT PRN IV SEE I/O RECORD Last administered on 03/27/20at 18:15; Start 03/27/20 at 03:00; Stop 03/27/20 at 18:16; Status DC Lidocaine HCl (Lidocaine 1% 20ml Vial) 20 ml STK-MED ONCE .ROUTE ; Start 03/27/20 at 09:23; Stop 03/27/20 at 09:23; Status DC Heparin Sodium/ Sodium Chloride 1,000 ml @ As Directed STK-MED ONCE .ROUTE ; Start 03/27/20 at 09:23; Stop 03/27/20 at 09:24; Status DC Iodixanol (Visipaque 320) 100 ml STK-MED ONCE .ROUTE ; Start 03/27/20 at 09:23; Stop 03/27/20 at 09:24; Status DC Heparin Sodium/ Sodium Chloride (HEPARIN for ARTERIAL LINE FLUSH) 1,000 unit 1X ONCE IART Last administered on 03/27/20at 10:00; Start 03/27/20 at 10:00; Stop 03/27/20 at 10:01; Status DC Heparin Sodium/ Sodium Chloride (HEPARIN for ARTERIAL LINE FLUSH) 1,000 unit 1X ONCE IART Last administered on 03/27/20at 10:00; Start 03/27/20 at 10:00; Stop 03/27/20 at 10:01; Status DC Iodixanol (Visipaque 320) 100 ml 1X ONCE IART Last administered on 03/27/20at 1 1:05; Start 03/27/20 at 10:00; Stop 03/27/20 at 10:01; Status DC Lidocaine HCl (Lidocaine 1% 20ml Vial) 20 ml 1X ONCE INJ Last administered on 03/27/20at 10:41; Start 03/27/20 at 10:00; Stop 03/27/20 at 10:01; Status DC Info (CONTRAST GIVEN -- Rx MONITORING) 1 each PRN DAILY PRN MC SEE COMMENTS; Start 03/27/20 at 10:00; Stop 03/29/20 at 09:59; Status DC Milrinone Lactate/ Dextrose 100 ml @ 10.103 mls/ hr CONT PRN IV SEE I/O RECORD Last administered on 03/30/20at 09:19; Start 03/27/20 at 11:30; Stop 03/30/20 at 15:28; Status DC Epinephrine HCl (EPINEPHrine SYRINGE) 1 mg STK-MED ONCE .ROUTE ; Start 03/26/20 at 21:00; Stop 03/27/20 at 19:23; Status DC Sodium Bicarbonate (Sodium Bicarb Adult 8.4% Syr) 50 meq STK-MED ONCE .ROUTE ; Start 03/26/20 at 21:00; Stop 03/27/20 at 19:23; Status DC Potassium Chloride/Water 100 ml @ 100 mls/hr Q1H IV Last administered on 03/28/20at 08:18; Start 03/28/20 at 06:00; Stop 03/28/20 at 07:59; Status DC Amiodarone HCl (Cordarone) 200 mg BID PO Last administered on 03/29/20at 07:46; Start 03/28/20 at 21:00; Stop 03/29/20 at 10:29; Status DC Lidocaine HCl (Lidocaine HCl 2% Abboject) 80 mg 1X ONCE IV Last administered on 03/28/20at 19:55; Start 03/28/20 at 20:15; Stop 03/28/20 at 20:16; Status DC Amiodarone HCl (Cordarone) 200 mg 1X ONCE PO Last administered on 03/29/20at 13:55; Start 03/29/20 at 13:45; Stop 03/29/20 at 13:50; Status DC Amiodarone HCl (Cordarone) 400 mg DAILY PO Last administered on 04/09/20at 09:28; Start 03/30/20 at 09:00 Magnesium Sulfate 50 ml @ 25 mls/hr 1X ONCE IV Last administered on 03/30/20at 09:55; Start 03/30/20 at 09:45; Stop 03/30/20 at 11:44; Status DC Potassium Bicarbonate (Potassium Effervescent Tablet) 40 meq 1X ONCE PEG Last administered on 03/30/20at 09:54; Start 03/30/20 at 09:45; Stop 03/30/20 at 09:53; Status DC Potassium Bicarbonate (Potassium Effervescent Tablet) 40 meq 1X ONCE PO Last administered on 03/30/20at 13:40; Start 03/30/20 at 14:15; Stop 03/30/20 at 14:16; Status DC Epinephrine HCl (EPINEPHrine SYRINGE) 1 mg STK-MED ONCE .ROUTE ; Start 03/29/20 at 12:00; Stop 03/30/20 at 13:02; Status DC Lidocaine HCl (Lidocaine HCl 2% Abboject) 100 mg STK-MED ONCE .ROUTE ; Start 03/29/20 at 12:00; Stop 03/30/20 at 13:02; Status DC Milrinone Lactate/ Dextrose 100 ml @ 6.735 mls/ hr CONT PRN IV SEE I/O RECORD Last administered on 04/01/20at 20:33; Start 03/30/20 at 15:30; Stop 04/06/20 at 14:23; Status DC Magnesium Sulfate 50 ml @ 25 mls/hr 1X ONCE IV Last administered on 03/31/20at 08:38; Start 03/31/20 at 08:30; Stop 03/31/20 at 10:29; Status DC Potassium Bicarbonate (Potassium Effervescent Tablet) 40 meq 1X ONCE PEG Last administered on 03/31/20at 08:37; Start 03/31/20 at 08:00; Stop 03/31/20 at 08:01; Status DC Potassium Bicarbonate (Potassium Effervescent Tablet) 40 meq 1X ONCE PEG Last administered on 03/31/20at 12:31; Start 03/31/20 at 12:00; Stop 03/31/20 at 12:01; Status DC Potassium Bicarbonate (Potassium Effervescent Tablet) 80 meq 1X ONCE PO Last administered on 04/01/20at 10:05; Start 04/01/20 at 09:45; Stop 04/01/20 at 09:46; Status DC Potassium Bicarbonate (Potassium Effervescent Tablet) 20 meq 1X ONCE PEG Last administered on 04/01/20at 16:25; Start 04/01/20 at 16:15; Stop 04/01/20 at 16:16; Status DC Potassium Chloride/Water 100 ml @ 100 mls/hr Q1H IV Last administered on 04/02/20at 09:24; Start 04/02/20 at 07:30; Stop 04/02/20 at 09:29; Status DC Magnesium Sulfate 50 ml @ 25 mls/hr 1X ONCE IV Last administered on 04/02/20at 07:52; Start 04/02/20 at 07:30; Stop 04/02/20 at 09:29; Status DC Potassium Bicarbonate (Potassium Effervescent Tablet) 40 meq 1X ONCE PEG Last administered on 04/02/20at 09:34; Start 04/02/20 at 09:30; Stop 04/02/20 at 09:31; Status DC Enoxaparin Sodium (Lovenox 40mg Syringe) 40 mg Q24H SQ Last administered on 04/08/20at 12:29; Start 04/02/20 at 12:00 Magnesium Sulfate 50 ml @ 25 mls/hr 1X ONCE IV Last administered on 04/02/20at 11:47; Start 04/02/20 at 12:00; Stop 04/02/20 at 13:59; Status DC Nicardipine HCl 50 mg/Sodium Chloride 250 ml @ 25 mls/hr CONT PRN IV SEE I/O RECORD Last administered on 04/04/20at 17:16; Start 04/02/20 at 12:00; Stop 04/06/20 at 14:23; Status DC Sodium Chloride 1,000 ml @ 55 mls/hr [id number] IV Last administered on 04/04/20at 10:42; Start 04/03/20 at 12:00; Stop 04/06/20 at 15:46; Status DC Potassium Chloride/Water 100 ml @ 100 mls/hr Q1H IV Last administered on 04/03/20at 20:15; Start 04/03/20 at 17:30; Stop 04/03/20 at 21:29; Status DC Info (Tpn Per Pharmacy) 1 each PRN DAILY PRN MC SEE COMMENTS Last administered on 04/05/20at 10:41; Start 04/04/20 at 11:00; Stop 04/06/20 at 13:20; Status DC Amino Acids/ Glycerin/ Electrolytes 1,000 ml @ 80 mls/hr [id number] IV Last administered on 04/04/20at 11:00; Start 04/04/20 at 11:30; Stop 04/04/20 at 21:59; Status DC Potassium Chloride/Water 100 ml @ 100 mls/hr Q1H IV Last administered on 04/04/20at 16:21; Start 04/04/20 at 13:00; Stop 04/04/20 at 16:59; Status DC Sodium Chloride 90 meq/Potassium Chloride 50 meq/ Potassium Phosphate 13.6 mmol/Magnesium Sulfate 15 meq/ Calcium Gluconate 10 meq/ Multivitamins 5 ml/Zinc/Copper/ Manganese/ Selenium 1 ml/ Total Parenteral Nutrition/Amino Acids/Dextrose/ Fat Emulsion Intravenous 1,512 ml @ 63 mls/hr TPN CONT IV Last administered on 04/04/20at 20:50; Start 04/04/20 at 22:00; Stop 04/05/20 at 21:59; Status DC Metoprolol Tartrate (Lopressor Vial) 5 mg Q6HRS IVP Last administered on 04/06/20at 05:49; Start 04/05/20 at 10:00; Stop 04/06/20 at 11:55; Status DC Potassium Chloride/Water 100 ml @ 100 mls/hr Q1H IV Last administered on 04/05/20at 11:01; Start 04/05/20 at 10:00; Stop 04/05/20 at 11:59; Status DC Sodium Phosphate 15 mmol/Sodium Chloride 105 ml @ 105 mls/hr 1X ONCE IV Last administered on 04/05/20at 13:18; Start 04/05/20 at 12:00; Stop 04/05/20 at 12:59; Status DC Sodium Chloride 45 meq/Potassium Chloride 50 meq/ Potassium Phosphate 17 mmol/ Magnesium Sulfate 15 meq/ Multivitamins 5 ml/Zinc/Copper/ Manganese/ Selenium 1 ml/ Total Parenteral Nutrition/Amino Acids/Dextrose/ Fat Emulsion Intravenous 1,080 ml @ 45 mls/hr TPN CONT IV Last administered on 04/05/20at 22:34; Start 04/05/20 at 22:00; Stop 04/06/20 at 15:46; Status DC Barium Sulfate (Varibar Thin Liquid Apple) 148 gm 1X ONCE PO Last administered on 04/05/20at 12:30; Start 04/05/20 at 11:00; Stop 04/05/20 at 11:04; Status DC Potassium Chloride/Water 100 ml @ 100 mls/hr 1X ONCE IV ; Start 04/05/20 at 12:00; Stop 04/05/20 at 12:59; Status DC Info (Non-Icu Electrolyte Protocol) 1 ea CONT PRN PRN MC SEE COMMENTS; Start 04/05/20 at 19:00 Pantoprazole Sodium (Protonix) 40 mg DAILYAC PO Last administered on 04/09/20at 09:29; Start 04/07/20 at 07:30 Metoprolol Succinate (Toprol Xl) 50 mg DAILY PO Last administered on 04/09/20at 09:29; Start 04/06/20 at 12:30 Potassium Phosphate 13.6 mmol/Sodium Chloride 254.5333 ml @ 127.... Q2H IV Last administered on 04/06/20at 17:37; Start 04/06/20 at 14:00; Stop 04/06/20 at 17:59; Status DC Potassium Chloride 70 meq/ Potassium Phosphate 17 mmol/ Magnesium Sulfate 15 meq/ Multivitamins 5 ml/Zinc/Copper/ Manganese/ Selenium 1 ml/ Total Parenteral Nutrition/Amino Acids/Dextrose/ Fat Emulsion Intravenous 1,080 ml @ 45 mls/hr TPN CONT IV ; Start 04/06/20 at 22:00; Stop 04/06/20 at 13:22; Status DC Metoprolol Succinate (Toprol Xl) 50 mg DAILY PO Last administered on 04/06/20at 14:30; Start 04/06/20 at 14:30; Stop 04/07/20 at 11:25; Status DC Lisinopril (Prinivil) 5 mg DAILY PO Last administered on 04/09/20at 09:29; Start 04/07/20 at 09:00 Haloperidol Lactate (Haldol Inj) 5 mg PRN Q8HRS PRN IVP AGITATION, 2ND CHOICE Last administered on 04/07/20at 11:07; Start 04/06/20 at 23:30 Lorazepam (Ativan Inj) 1 mg PRN Q4HRS PRN IVP MODERATE ANXIETY / AGITATION Last administered on 04/07/20at 05:01; Start 04/06/20 at 23:30 Lorazepam (Ativan Inj) 2 mg PRN Q4HRS PRN IVP SEVERE ANXIETY / AGITATION; Start 04/06/20 at 23:30 Active Scripts Active Furosemide 40 Mg Tablet 40 Mg PO DAILY 90 Days Tramadol Hcl 50 Mg Tablet 50 Mg PO PRN Q6HRS PRN 6 Days Metoprolol Succinate ( Xl ) (Metoprolol Succinate) 25 Mg Tab.er.24h 12.5 Mg PO DAILY 90 Days Clopidogrel (Clopidogrel Bisulfate) 75 Mg Tablet 75 Mg PO [id number] 90 Days Lisinopril 10 Mg Tablet 1 Tab PO DAILY 90 Days Atorvastatin Calcium 80 Mg Tablet 80 Mg PO QHS 90 Days Reported Klor-Con M20 (Potassium Chloride) 20 Meq Tab.er.prt 20 Meq PO TID Pantoprazole Sodium (Pantoprazole Sodium) 40 Mg Tablet.dr 40 Mg PO BID Duoneb 0.5-3(2.5) Mg/3 Ml (Albuterol/Ipratropium) 3 Ml Ampul.neb 3 Ml NEB PRN Q6HRS PRN Acetaminophen 325 Mg Tablet 1 Tab PO PRN Q6HRS PRN 24 Days Triumeq Tablet (Abacavir/Dolutegravir/Lamivudi) 1 Each Tablet 1 Tab PO DAILY 30 Days Gabapentin (Gabapentin) 300 Mg Capsule 100 Mg PO TID Children's Aspirin (Aspirin) 81 Mg Tab.chew 1 Tab PO DAILY 30 Days Vitals/I & O Vital Sign - Last 24 Hours 04/08/20 04/08/20 04/08/20 04/08/20 10:45 12:30 14:26 19:00 Temp 98.1 97.6 98.4 98.1 97.6 98.4 Pulse 81 81 81 78 Resp 18 18 16 B/P (MAP) 120/60 (80) 120/60 94/73 (80) 110/72 (85) Pulse Ox 98 97 95 O2 Delivery Room Air Room Air Room Air 04/08/20 04/08/20 04/09/20 04/09/20 19:12 22:52 02:57 07:00 Temp 99.0 99.7 98.4 99.0 99.7 98.4 Pulse 82 69 93 Resp 18 18 16 B/P (MAP) 129/82 (98) 104/59 (74) 115/74 (88) Pulse Ox 98 96 98 O2 Delivery Room Air Room Air Room Air Room Air 04/09/20 04/09/20 04/09/20 09:28 09:29 09:29 Pulse 93 93 93 B/P (MAP) 115/74 115/74 115/74 Intake and Output 04/08/20 04/08/20 04/09/20 15:00 23:00 07:00 Intake Total 360 ml 360 ml 100 ml Output Total 1300 ml 100 ml Balance 360 ml -940 ml 0 ml Justicifation of Admission Dx: Justifications for Admission: Justification of Admission Dx: Yes ERIN MAYEN MD Apr 09, 2020 10:38
--- NOTE | 2020-04-09 10:44 | PDOC ---
GREGORY REYNA POLICY DIRECTOR 04/09/20 1044: CARDIO Progress Notes Date and Time Date of Service 04/09/20 Time of Evaluation 1042 Subjective Subjective: No Chest Pain, No shortness of breath, No Palpitations Vitals Vitals Vital Signs Date Time Temp Pulse Resp B/P (MAP) Pulse Ox O2 Delivery O2 Flow Rate FiO2 04/09/20 09:29 93 115/74 04/09/20 07:00 98.4 16 98 Room Air 98.4 Weight Weight [ ] Input and Output Intake and Output Intake and Output 04/09/20 07:00 Intake Total 820 ml Output Total 1400 ml Balance -580 ml Intake Oral 820 ml Output Urine Total 1400 ml # Voids 1 Laboratory Labs Laboratory Tests Test 04/08/20 22:50 04/09/20 05:50 SARS-CoV-2 Antigen (Rapid) Negative (NEGATIVE) White Blood Count 7.9 x10^3/uL (4.0-11.0) Red Blood Count 3.76 x10^6/uL (4.30-5.70) Hemoglobin 9.1 g/dL (13.0-17.5) Hematocrit 28.8 % (39.0-53.0) Mean Corpuscular Volume 77 fL (79-100) Mean Corpuscular Hemoglobin 24 pg (25-35) Mean Corpuscular Hemoglobin Concent 32 g/dL (31-37) Red Cell Distribution Width 18.9 % (11.5-14.5) Platelet Count 713 x10^3/uL (140-400) Neutrophils (%) (Auto) 46 % (31-73) Lymphocytes (%) (Auto) 43 % (24-48) Monocytes (%) (Auto) 7 % (0-9) Eosinophils (%) (Auto) 4 % (0-3) Basophils (%) (Auto) 0 % (0-3) Neutrophils # (Auto) 3.6 x10^3/uL (1.8-7.7) Lymphocytes # (Auto) 3.4 x10^3/uL (1.0-4.8) Monocytes # (Auto) 0.5 x10^3/uL (0.0-1.1) Eosinophils # (Auto) 0.3 x10^3/uL (0.0-0.7) Basophils # (Auto) 0.0 x10^3/uL (0.0-0.2) Sodium Level 141 mmol/L (136-145) Potassium Level 3.6 mmol/L (3.5-5.1) Chloride Level 105 mmol/L (98-107) Carbon Dioxide Level 25 mmol/L (21-32) Anion Gap 11 (6-14) Blood Urea Nitrogen 11 mg/dL (8-26) Creatinine 1.1 mg/dL (0.7-1.3) Estimated GFR (Cockcroft-Gault) 85.1 BUN/Creatinine Ratio 10 (6-20) Glucose Level 122 mg/dL (70-99) Calcium Level 9.0 mg/dL (8.5-10.1) Total Bilirubin 0.2 mg/dL (0.2-1.0) Aspartate Amino Transf (AST/SGOT) 37 U/L (15-37) Alanine Aminotransferase (ALT/SGPT) 33 U/L (16-63) Alkaline Phosphatase 84 U/L (46-116) Total Protein 8.2 g/dL (6.4-8.2) Albumin 3.1 g/dL (3.4-5.0) Albumin/Globulin Ratio 0.6 (1.0-1.7) Microbiology Micro Microbiology 03/26/20 Urine Culture - Final, Complete 03/21/20 Gram Stain Evaluation - Final, Complete 03/21/20 Respiratory Culture - Final, Complete 03/20/20 Blood Culture - Final, Complete NO GROWTH AFTER 5 DAYS Physical Exam HEENT: Neck Supple W Full Motion Chest: Symmetric LUNGS: Other (diminished bases) Heart: RRR (SR/ST with PVCs. Accasional bradycardia. Lowest 46. No pauses) Abdomen: Soft N/T Extremities: No Edema Neurology: alert, follow commands, other (periods of confusion) Assessment Assessment 1. OOH, witness cardiac arrest; recurrent Torsades, VT arrest 03/27/20. LHC with patent LCx stent. No lesions needing intervention. s/p extubation, pulm following 3. Acute respiratory failure secondary to above; extubated, 4. H/o Vfib OOH arrest; probable ischemic in nature, antiarrhythmics discontinued in past due to QTc prolongation. now 501 5. Acute on chronic systolic CHF: appears compensated 6. ICM; LVEF 20-25%. 7. CAD s/p PCI/BMS to the LCx 12/11/19. Stable and CP free 8. SSS s/p leadless PPM implantation ([employer] Micra). Device check with normal function 04/02/20. 9. Leukocytosis, fevers. ? sepsis. 10. Hypertension; controlled 11. H/o DAIJA requiringHD; renal function improvedand HD catheter removed 12. 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 Hgb stable 13. HIV 14. Substance abuse; UDS + cocaine at [facility] 15. Noncompliance 16. Tobaccoism 17. Hypokalemia, hypomagnesemia: resolved 18. Encephalopathy: still having periods of confusion 19. Weakness, significant deconditioning Recommendations Continue metoprolol for rate control and Amiodarone for rhythm maintenance Lasix therapy; convert to oral Maintain K and Mg at least 4.0 and 2.0 respectively. Add daily K replacement Continue Plavix. No ASA with h/o GIB Statin therapy Continue LifeVest upon discharged. Outpatient consideration of AICD if patient establishes compliance and refrains from drug abuse Reinforced importance or smoking cessation, abstinence from recreational drug use, and compliance with medical therapy Supportive care Okay to discharge to rehab facility Follow up in our office with Dr. Galeas as scheduled Justicifation of Admission Dx: Justifications for Admission: Justification of Admission Dx: Yes SHYAM GALEAS MD 04/09/20 2212: CARDIO Progress Notes Plan Plan Pt. seen and examined. Agree with above CURRICULUM SUPERVISOR note. He appears euvolemic. Plan for lasix prn and start spironolactone 25mg daily. K supplementation. Needs labs 3-4 days after discharge, lifevest has been plac ed. f/u in office in 1 month. GREGORY REYNA APRN Apr 09, 2020 10:44 SHYAM GALEAS MD Apr 09, 2020 22:12
[2020-04-09 10:51] VITALS: BP 121/70
--- NOTE | 2020-04-09 11:38 | NUR ---
SS following up with discharge planning. [facility] contacted SS and verified that they need PCR from COVID19 test. PCR currently pending. SS phoned and faxed updated PT/OT notes to [facility]. SS will continue to follow for discharge planning.
[2020-04-09] MEDS: ENOXAPARIN 40 MG/0.4 ML SYRINGE. SQ SCH (13:00)
--- NOTE | 2020-04-09 14:58 | PDOC ---
PROGRESS NOTES Date of Service: DATE: 04/09/20 TIME: 14:58 Chief Complaint Chief Complaint 0. Status post extubation 2 days ago 1. out of hospital arrest , witness cardiac arrest; Defibrillation // AMI ruled out. 2. H/o Vfib probable ischemic in nature, antiarrhythmics discontinued in past due to QTc prolongation of 600. 3. Acute hypoxic respiratory failure requiring vent support 4. CAD s/p PCI/BMS to the LCx 12/11/19. Treated with ASA,Brilinta initially, which was held due to recurrent GIB requiring transfusions.Due to recent PCI/BMS, Plavix was resumed while at [facility]. ASA was d/c'd 5. Chronic systolic CHF 6. ischemic cardiomyopathy LVEF 20-25%. 7. SSS s/p leadless PPM 8. Hypertension; // requiring pressor support 9. Hypokalemia, hypomagnesemia 10. H/o DAIJA requiringHD; renal function improvedand HD catheter removed 11. 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 HIV 13. Substance abuse; UDS + cocaine , ALCOHOL, TOBACCO 14. Leukocytosis, fevers. ? sepsis Covid negative. 15. H/o Vfib OOH arrest; probable ischemic in nature, antiarrhythmics discontinued in past due to QTc prolongation of 600. EKG at [facility] with QTc 507, 528. 16. Human immunodeficiency virus, CD4 was 403 on 01/16 viral load less than 20 on 01/23on [facility]. 17. History of ventricular tachycardia, Coronary artery disease, status post PCI. 18. 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 19. hypernatremia, volume excess History of Present Illness History of Present Illness 04/09/2020 try to DC soon cont current COVID swab pending, taken yesterday Patient seen and examined while sitting in a chair DW PT DW RN Chart reviewed Vitals Vitals Vital Signs Date Time Temp Pulse Resp B/P (MAP) Pulse Ox O2 Delivery O2 Flow Rate FiO2 04/09/20 10:51 97.7 96 16 121/70 (87) 98 Room Air 97.7 Physical Exam Physical Exam GENERAL: alert awake male on nasal O2 HEENT: Normocephalic atraumatic pupils equal, reactive. NECK: Supple. Central line present LUNGS: Clear anteriorly. HEART: S1, S2, no murmurs ABDOMEN: Obese, mildly distended. Bowel sounds present. EXTREMITIES: No edema or cyanosis. Superficial thrombophlebitis right upper extremity latter improved DERMATOLOGIC: Warm and dry. No generalized rash. NEUROLOGIC alert oriented x3 grossly nonfocal General: Other Heart: Regular rate, No murmurs Lungs: Clear Abdomen: Normal bowel sounds, No tenderness Extremities: No clubbing, No edema Labs LABS Laboratory Tests Test 04/08/20 22:50 04/09/20 05:50 SARS-CoV-2 Antigen (Rapid) Negative (NEGATIVE) White Blood Count 7.9 x10^3/uL (4.0-11.0) Red Blood Count 3.76 x10^6/uL (4.30-5.70) Hemoglobin 9.1 g/dL (13.0-17.5) Hematocrit 28.8 % (39.0-53.0) Mean Corpuscular Volume 77 fL (79-100) Mean Corpuscular Hemoglobin 24 pg (25-35) Mean Corpuscular Hemoglobin Concent 32 g/dL (31-37) Red Cell Distribution Width 18.9 % (11.5-14.5) Platelet Count 713 x10^3/uL (140-400) Neutrophils (%) (Auto) 46 % (31-73) Lymphocytes (%) (Auto) 43 % (24-48) Monocytes (%) (Auto) 7 % (0-9) Eosinophils (%) (Auto) 4 % (0-3) Basophils (%) (Auto) 0 % (0-3) Neutrophils # (Auto) 3.6 x10^3/uL (1.8-7.7) Lymphocytes # (Auto) 3.4 x10^3/uL (1.0-4.8) Monocytes # (Auto) 0.5 x10^3/uL (0.0-1.1) Eosinophils # (Auto) 0.3 x10^3/uL (0.0-0.7) Basophils # (Auto) 0.0 x10^3/uL (0.0-0.2) Sodium Level 141 mmol/L (136-145) Potassium Level 3.6 mmol/L (3.5-5.1) Chloride Level 105 mmol/L (98-107) Carbon Dioxide Level 25 mmol/L (21-32) Anion Gap 11 (6-14) Blood Urea Nitrogen 11 mg/dL (8-26) Creatinine 1.1 mg/dL (0.7-1.3) Estimated GFR (Cockcroft-Gault) 85.1 BUN/Creatinine Ratio 10 (6-20) Glucose Level 122 mg/dL (70-99) Calcium Level 9.0 mg/dL (8.5-10.1) Total Bilirubin 0.2 mg/dL (0.2-1.0) Aspartate Amino Transf (AST/SGOT) 37 U/L (15-37) Alanine Aminotransferase (ALT/SGPT) 33 U/L (16-63) Alkaline Phosphatase 84 U/L (46-116) Total Protein 8.2 g/dL (6.4-8.2) Albumin 3.1 g/dL (3.4-5.0) Albumin/Globulin Ratio 0.6 (1.0-1.7) Comment Review of Relevant I have reviewed the following items joel (where applicable) has been applied. Labs Laboratory Tests Test 04/08/20 06:45 04/08/20 22:50 04/09/20 05:50 White Blood Count 8.0 x10^3/uL (4.0-11.0) 7.9 x10^3/uL (4.0-11.0) Red Blood Count 3.77 x10^6/uL (4.30-5.70) 3.76 x10^6/uL (4.30-5.70) Hemoglobin 9.2 g/dL (13.0-17.5) 9.1 g/dL (13.0-17.5) Hematocrit 29.1 % (39.0-53.0) 28.8 % (39.0-53.0) Mean Corpuscular Volume 77 fL (79-100) 77 fL (79-100) Mean Corpuscular Hemoglobin 25 pg (25-35) 24 pg (25-35) Mean Corpuscular Hemoglobin Concent 32 g/dL (31-37) 32 g/dL (31-37) Red Cell Distribution Width 18.8 % (11.5-14.5) 18.9 % (11.5-14.5) Platelet Count 699 x10^3/uL (140-400) 713 x10^3/uL (140-400) Neutrophils (%) (Auto) 51 % (31-73) 46 % (31-73) Lymphocytes (%) (Auto) 38 % (24-48) 43 % (24-48) Monocytes (%) (Auto) 8 % (0-9) 7 % (0-9) Eosinophils (%) (Auto) 3 % (0-3) 4 % (0-3) Basophils (%) (Auto) 0 % (0-3) 0 % (0-3) Neutrophils # (Auto) 4.1 x10^3/uL (1.8-7.7) 3.6 x10^3/uL (1.8-7.7) Lymphocytes # (Auto) 3.0 x10^3/uL (1.0-4.8) 3.4 x10^3/uL (1.0-4.8) Monocytes # (Auto) 0.7 x10^3/uL (0.0-1.1) 0.5 x10^3/uL (0.0-1.1) Eosinophils # (Auto) 0.2 x10^3/uL (0.0-0.7) 0.3 x10^3/uL (0.0-0.7) Basophils # (Auto) 0.0 x10^3/uL (0.0-0.2) 0.0 x10^3/uL (0.0-0.2) Sodium Level 142 mmol/L (136-145) 141 mmol/L (136-145) Potassium Level 3.9 mmol/L (3.5-5.1) 3.6 mmol/L (3.5-5.1) Chloride Level 106 mmol/L (98-107) 105 mmol/L (98-107) Carbon Dioxide Level 24 mmol/L (21-32) 25 mmol/L (21-32) Anion Gap 12 (6-14) 11 (6-14) Blood Urea Nitrogen 15 mg/dL (8-26) 11 mg/dL (8-26) Creatinine 1.2 mg/dL (0.7-1.3) 1.1 mg/dL (0.7-1.3) Estimated GFR (Cockcroft-Gault) 76.9 85.1 BUN/Creatinine Ratio 13 (6-20) 10 (6-20) Glucose Level 122 mg/dL (70-99) 122 mg/dL (70-99) Calcium Level 8.8 mg/dL (8.5-10.1) 9.0 mg/dL (8.5-10.1) Total Bilirubin 0.5 mg/dL (0.2-1.0) 0.2 mg/dL (0.2-1.0) Aspartate Amino Transf (AST/SGOT) 37 U/L (15-37) 37 U/L (15-37) Alanine Aminotransferase (ALT/SGPT) 26 U/L (16-63) 33 U/L (16-63) Alkaline Phosphatase 78 U/L (46-116) 84 U/L (46-116) Total Protein 8.1 g/dL (6.4-8.2) 8.2 g/dL (6.4-8.2) Albumin 2.9 g/dL (3.4-5.0) 3.1 g/dL (3.4-5.0) Albumin/Globulin Ratio 0.6 (1.0-1.7) 0.6 (1.0-1.7) SARS-CoV-2 Antigen (Rapid) Negative (NEGATIVE) Laboratory Tests Test 04/08/20 22:50 04/09/20 05:50 SARS-CoV-2 Antigen (Rapid) Negative (NEGATIVE) White Blood Count 7.9 x10^3/uL (4.0-11.0) Red Blood Count 3.76 x10^6/uL (4.30-5.70) Hemoglobin 9.1 g/dL (13.0-17.5) Hematocrit 28.8 % (39.0-53.0) Mean Corpuscular Volume 77 fL (79-100) Mean Corpuscular Hemoglobin 24 pg (25-35) Mean Corpuscular Hemoglobin Concent 32 g/dL (31-37) Red Cell Distribution Width 18.9 % (11.5-14.5) Platelet Count 713 x10^3/uL (140-400) Neutrophils (%) (Auto) 46 % (31-73) Lymphocytes (%) (Auto) 43 % (24-48) Monocytes (%) (Auto) 7 % (0-9) Eosinophils (%) (Auto) 4 % (0-3) Basophils (%) (Auto) 0 % (0-3) Neutrophils # (Auto) 3.6 x10^3/uL (1.8-7.7) Lymphocytes # (Auto) 3.4 x10^3/uL (1.0-4.8) Monocytes # (Auto) 0.5 x10^3/uL (0.0-1.1) Eosinophils # (Auto) 0.3 x10^3/uL (0.0-0.7) Basophils # (Auto) 0.0 x10^3/uL (0.0-0.2) Sodium Level 141 mmol/L (136-145) Potassium Level 3.6 mmol/L (3.5-5.1) Chloride Level 105 mmol/L (98-107) Carbon Dioxide Level 25 mmol/L (21-32) Anion Gap 11 (6-14) Blood Urea Nitrogen 11 mg/dL (8-26) Creatinine 1.1 mg/dL (0.7-1.3) Estimated GFR (Cockcroft-Gault) 85.1 BUN/Creatinine Ratio 10 (6-20) Glucose Level 122 mg/dL (70-99) Calcium Level 9.0 mg/dL (8.5-10.1) Total Bilirubin 0.2 mg/dL (0.2-1.0) Aspartate Amino Transf (AST/SGOT) 37 U/L (15-37) Alanine Aminotransferase (ALT/SGPT) 33 U/L (16-63) Alkaline Phosphatase 84 U/L (46-116) Total Protein 8.2 g/dL (6.4-8.2) Albumin 3.1 g/dL (3.4-5.0) Albumin/Globulin Ratio 0.6 (1.0-1.7) Microbiology 03/26/20 Urine Culture - Final, Complete 03/21/20 Gram Stain Evaluation - Final, Complete 03/21/20 Respiratory Culture - Final, Complete 03/20/20 Blood Culture - Final, Complete NO GROWTH AFTER 5 DAYS Medications Current Medications Norepinephrine Bitartrate 8 mg/ Dextrose 258 ml @ 18.247 mls/ hr CONT PRN IV PER PROTOCOL Last administered on 03/28/20at 19:12; Start 03/20/20 at 04:15; Stop 04/06/20 at 10:08; Status DC Dopamine HCl/ Dextrose 250 ml @ 17.681 mls/ hr CONT PRN IV SEE I/O RECORD; Start 03/20/20 at 04:30 Heparin Sodium/ Dextrose 250 ml @ 0 mls/hr CONT PRN IV PER PROTOCOL Last administered on 03/21/20at 22:15; Start 03/20/20 at 04:30; Stop 03/22/20 at 10:15; Status DC Heparin Sodium (Porcine) (Heparin Sodium) 2,400 unit PRN Q6HRS PRN IV FOR UFH LEVEL LESS THAN 0.2 Last administered on 03/21/20at 14:17; Start 03/20/20 at 04:30; Stop 03/22/20 at 10:15; Status DC Fentanyl Citrate 30 ml @ 0 mls/hr CONT PRN IV SEE PROTOCOL Last administered on 03/23/20at 06:19; Start 03/20/20 at 04:45; Stop 03/23/20 at 19:11; Status DC Lorazepam (Ativan Inj) 1 mg PRN Q1HR PRN IV SEE COMMENTS Last administered on 03/26/20at 14:30; Start 03/20/20 at 04:45; Stop 03/26/20 at 15:29; Status DC Fentanyl Citrate (Fentanyl 2ml Vial) 25 mcg PRN Q1HR PRN IV SEE COMMENTS; Start 03/20/20 at 04:45; Stop 03/26/20 at 15:29; Status DC Fentanyl Citrate (Fentanyl 2ml Vial) 50 mcg PRN Q1HR PRN IV SEE COMMENTS; Start 03/20/20 at 04:45; Stop 03/26/20 at 15:29; Status DC Chlorhexidine Gluconate (Peridex) 15 ml BID MM ; Start 03/20/20 at 09:00; Stop 03/20/20 at 07:24; Status DC Famotidine (Pepcid Vial) 20 mg BID IVP Last administered on 03/20/20at 08:07; Start 03/20/20 at 09:00; Stop 03/20/20 at 12:52; Status DC Morphine Sulfate (Morphine Sulfate) 2 mg PRN Q1HR PRN IV SEE COMMENTS.; Start 03/20/20 at 04:45; Stop 03/26/20 at 04:43; Status DC Morphine Sulfate (Morphine Sulfate) 4 mg PRN Q1HR PRN IV SEE COMMENTS.; Start 03/20/20 at 04:45; Stop 03/26/20 at 04:43; Status DC Midazolam HCl 100 ml @ 0 mls/hr CONT PRN IV SEE PROTOCOL Last administered on 03/26/20at 02:42; Start 03/20/20 at 04:45; Stop 03/26/20 at 15:29; Status DC Docusate Sodium (Colace Solution) 100 mg BID NG Last administered on 03/26/20at 08:35; Start 03/20/20 at 09:00; Stop 03/26/20 at 15:28; Status DC Sodium Chloride 1,000 ml @ 55 mls/hr [id number] IV Last administered on 04/02/20at 19:36; Start 03/20/20 at 06:30; Stop 04/03/20 at 06:08; Status DC Acetaminophen (Tylenol) 650 mg PRN Q6HRS PRN PEG MILD PAIN / TEMP > 100.3'F Last administered on 03/27/20at 20:51; Start 03/20/20 at 09:00 Piperacillin Sod/ Tazobactam Sod (Zosyn Per Pharmacy) 1 each PRN DAILY PRN MC SEE COMMENTS; Start 03/20/20 at 09:30; Stop 04/04/20 at 10:19; Status DC Piperacillin Sod/ Tazobactam Sod 3.375 gm/Sodium Chloride 50 ml @ 100 mls/hr Q6HRS IV Last administered on 04/04/20at 06:03; Start 03/20/20 at 10:00; Stop 04/04/20 at 08:17; Status DC Magnesium Sulfate 50 ml @ 25 mls/hr 1X ONCE IV Last administered on 03/20/20at 10:21; Start 03/20/20 at 09:45; Stop 03/20/20 at 11:44; Status DC Clopidogrel Bisulfate (Plavix) 75 mg [id number] PO Last administered on 04/09/20at 09:29; Start 03/20/20 at 12:00 Atorvastatin Calcium (Lipitor) 80 mg QHS PO Last administered on 04/08/20at 20:58; Start 03/20/20 at 21:00 Ondansetron HCl (Zofran) 4 mg PRN Q6HRS PRN IVP NAUSEA/VOMITING Last administered on 04/04/20 05:24; Start 03/20/20 at 10:30 Famotidine (Pepcid Vial) 20 mg BID IVP ; Start 03/20/20 at 11:00; Stop 03/20/20 at 12:35; Status DC Info (Icu Electrolyte Protocol) 1 ea DAILY MC Last administered on 04/05/20 09:00; Start 03/21/20 at 09:00; Stop 04/05/20 at 18:53; Status DC Sodium Chloride (Normal Saline Flush) 3 ml QSHIFT PRN IV AFTER MEDS AND BLOOD DRAWS; Start 03/20/20 at 10:30 Pantoprazole Sodium (PROTONIX VIAL for IV PUSH) 40 mg DAILYAC IVP Last administered on 04/06/20 08:39; Start 03/20/20 at 12:30; Stop 04/06/20 at 10:06; Status DC Potassium Bicarbonate (Potassium Effervescent Tablet) 40 meq 1X ONCE PEG Last administered on 03/20/20at 14:47; Start 03/20/20 at 14:00; Stop 03/20/20 at 14:20; Status DC Non-Formulary Medication (ABACAVIR/ DOLUTEGRAVIR/ LAMIVUDINE (Triumeq) tablet) 1 ea DAILY PO Last administered on 04/09/20 09:32; Start 03/20/20 at 17:00 Vancomycin HCl (Vancomycin Oral Solution) 125 mg BID PO Last administered on 04/03/20 08:17; Start 03/20/20 at 21:30; Stop 04/04/20 at 08:17; Status DC Linezolid/Dextrose 300 ml @ 300 mls/hr Q12HR IV Last administered on 03/28/20 08:19; Start 03/21/20 at 09:00; Stop 03/28/20 at 08:39; Status DC Furosemide (Lasix) 40 mg DAILY IVP Last administered on 04/09/20 09:29; Start 03/22/20 at 11:00 Potassium Chloride/Water 100 ml @ 50 mls/hr 1X ONCE IV Last administered on 03/22/20at 12:58; Start 03/22/20 at 10:30; Stop 03/22/20 at 12:29; Status DC Fentanyl Citrate 55 ml @ 0 mls/hr CONT PRN IV SEE PROTOCOL Last administered on 04/03/20at 00:18; Start 03/23/20 at 19:15; Stop 04/05/20 at 18:53; Status DC Dexmedetomidine HCl 400 mcg/ Sodium Chloride 100 ml @ 0 mls/hr CONT PRN IV PER PROTOCOL Last administered on 03/24/20at 03:33; Start 03/23/20 at 21:00; Stop 03/24/20 at 08:52; Status DC Sodium Chloride 500 ml @ 500 mls/hr 1X PRN PRN IV SEE COMMENTS; Start 03/23/20 at 21:00 Atropine Sulfate (ATROPINE 0.5mg SYRINGE) 0.5 mg PRN Q5MIN PRN IV SEE COMMENTS; Start 03/23/20 at 21:00; Stop 04/06/20 at 10:08; Status DC Haloperidol Lactate (Haldol Inj) 5 mg PRN Q6HRS PRN IVP AGITATION; Start 03/23/20 at 21:00; Stop 03/24/20 at 08:52; Status DC Propofol 100 ml @ 2.748 mls/ hr CONT PRN IV PER PROTOCOL Last administered on 03/25/20at 01:17; Start 03/24/20 at 09:00; Stop 03/26/20 at 15:31; Status DC Potassium Chloride/Water 100 ml @ 100 mls/hr Q1H IV Last administered on 03/25/20at 19:02; Start 03/25/20 at 10:00; Stop 03/25/20 at 17:59; Status DC Potassium Chloride/Water 100 ml @ 100 mls/hr Q1H IV ; Start 03/25/20 at 15:00; Stop 03/25/20 at 13:59; Status DC Potassium Bicarbonate (Potassium Effervescent Tablet) 40 meq 1X ONCE PO Last administered on 03/26/20at 08:36; Start 03/26/20 at 08:15; Stop 03/26/20 at 08:22; Status DC Propofol 100 ml @ As Directed STK-MED ONCE IV ; Start 03/26/20 at 19:07; Stop 03/26/20 at 19:07; Status DC Fentanyl Citrate 30 ml @ 0 mls/hr CONT PRN IV SEE PROTOCOL; Start 03/26/20 at 19:15; Status Cancel Propofol 100 ml @ 0 mls/hr CONT PRN IV PER PROTOCOL; Start 03/26/20 at 19:15; Status Cancel Fentanyl Citrate (Fentanyl 2ml Vial) 25 mcg PRN Q1HR PRN IV SEE COMMENTS Last administered on 04/03/20at 21:02; Start 03/26/20 at 19:15 Fentanyl Citrate (Fentanyl 2ml Vial) 50 mcg PRN Q1HR PRN IV SEE COMMENTS Last administered on 04/04/20at 02:45; Start 03/26/20 at 19:15 Chlorhexidine Gluconate (Peridex) 15 ml BID MM Last administered on 03/27/20at 20:51; Start 03/26/20 at 21:00; Stop 03/28/20 at 11:44; Status DC Morphine Sulfate (Morphine Sulfate) 2 mg PRN Q1HR PRN IV SEE COMMENTS.; Start 03/26/20 at 19:15; Status Cancel Morphine Sulfate (Morphine Sulfate) 2 mg PRN Q1HR PRN IV SEE COMMENTS.; Start 03/26/20 at 19:15; Stop 03/28/20 at 22:35; Status DC Morphine Sulfate (Morphine Sulfate) 4 mg PRN Q1HR PRN IV SEE COMMENTS.; Start 03/26/20 at 19:15; Stop 03/28/20 at 22:35; Status DC Olanzapine (ZyPREXA ZYDIS) 5 mg PRN Q4HRS PRN PO AGITATION, DELIRIUM Last administered on 04/09/20at 14:27; Start 03/26/20 at 19:15 Labetalol HCl (Normodyne Iv Push) 10 mg PRN Q2HR PRN IVP HYPERTENSION; Start 03/26/20 at 19:15 Fentanyl Citrate 30 ml @ 0 mls/hr CONT PRN IV SEE PROTOCOL; Start 03/26/20 at 19:15; Status UNV Propofol 100 ml @ 0 mls/hr CONT PRN IV PER PROTOCOL Last administered on at 05:44; Start 03/26/20 at 19:15; Stop 04/05/20 at 18:53; Status DC Midazolam HCl 100 ml @ 0 mls/hr CONT PRN IV SEE PROTOCOL Last administered on 04/01/20at 12:21; Start 03/26/20 at 19:15; Stop 04/05/20 at 18:53; Status DC Amiodarone HCl 150 mg/Dextrose 103 ml @ 618 mls/hr 1X ONCE IV Last administered on 03/26/20at 19:44; Start 03/26/20 at 19:45; Stop 03/26/20 at 19:54; Status DC Amiodarone HCl 450 mg/Dextrose 259 ml @ 0 mls/hr 1X ONCE IV Last administered on 03/26/20at 19:45; Start 03/26/20 at 19:45; Stop 03/26/20 at 19:46; Status DC Potassium Chloride/Water 100 ml @ 100 mls/hr Q1H IV Last administered on 03/27/20at 00:44; Start 03/26/20 at 21:00; Stop 03/27/20 at 00:59; Status DC Sodium Chloride 500 ml @ 500 mls/hr 1X ONCE IV Last administered on 03/26/20at 21:09; Start 03/26/20 at 21:15; Stop 03/26/20 at 22:14; Status DC Magnesium Sulfate 100 ml @ 50 mls/hr DAILY IV Last administered on 03/26/20at 22:23; Start 03/26/20 at 22:00; Stop 03/29/20 at 03:54; Status DC Etomidate (Amidate) 20 mg STK-MED ONCE IV ; Start 03/26/20 at 23:34; Stop 03/26/20 at 23:35; Status DC Succinylcholine Chloride (Anectine) 200 mg STK-MED ONCE .ROUTE ; Start 03/26/20 at 23:34; Stop 03/26/20 at 23:35; Status DC Lidocaine HCl (Lidocaine HCl 2% Abboject) 80 mg 1X ONCE IV Last administered on 03/27/20at 01:50; Start 03/27/20 at 02:00; Stop 03/27/20 at 02:01; Status DC Potassium Chloride/Water 100 ml @ 100 mls/hr Q1H IV Last administered on 03/27/20at 07:24; Start 03/27/20 at 02:00; Stop 03/27/20 at 05:59; Status DC Dexmedetomidine HCl 400 mcg/ Sodium Chloride 100 ml @ 0 mls/hr CONT PRN IV PER PROTOCOL Last administered on 04/03/20at 01:36; Start 03/27/20 at 01:45; Stop 04/05/20 at 18:53; Status DC Sodium Chloride 500 ml @ 500 mls/hr 1X PRN PRN IV SEE COMMENTS; Start 03/27/20 at 01:45; Status Cancel Atropine Sulfate (ATROPINE 0.5mg SYRINGE) 0.5 mg PRN Q5MIN PRN IV SEE COMMENTS; Start 03/27/20 at 01:45; Stop 03/27/20 at 16:31; Status DC Amiodarone HCl 450 mg/Dextrose 259 ml @ 16.7 mls/hr CONT PRN IV SEE I/O RECORD Last administered on 03/27/20at 18:15; Start 03/27/20 at 03:00; Stop 03/27/20 at 18:16; Status DC Lidocaine HCl (Lidocaine 1% 20ml Vial) 20 ml STK-MED ONCE .ROUTE ; Start 03/27/20 at 09:23; Stop 03/27/20 at 09:23; Status DC Heparin Sodium/ Sodium Chloride 1,000 ml @ As Directed STK-MED ONCE .ROUTE ; Start 03/27/20 at 09:23; Stop 03/27/20 at 09:24; Status DC Iodixanol (Visipaque 320) 100 ml STK-MED ONCE .ROUTE ; Start 03/27/20 at 09:23; Stop 03/27/20 at 09:24; Status DC Heparin Sodium/ Sodium Chloride (HEPARIN for ARTERIAL LINE FLUSH) 1,000 unit 1X ONCE IART Last administered on 03/27/20at 10:00; Start 03/27/20 at 10:00; Stop 03/27/20 at 10:01; Status DC Heparin Sodium/ Sodium Chloride (HEPARIN for ARTERIAL LINE FLUSH) 1,000 unit 1X ONCE IART Last administered on 03/27/20at 10:00; Start 03/27/20 at 10:00; Stop 03/27/20 at 10:01; Status DC Iodixanol (Visipaque 320) 100 ml 1X ONCE IART Last administered on 03/27/20at 11 :05; Start 03/27/20 at 10:00; Stop 03/27/20 at 10:01; Status DC Lidocaine HCl (Lidocaine 1% 20ml Vial) 20 ml 1X ONCE INJ Last administered on 03/27/20at 10:41; Start 03/27/20 at 10:00; Stop 03/27/20 at 10:01; Status DC Info (CONTRAST GIVEN -- Rx MONITORING) 1 each PRN DAILY PRN MC SEE COMMENTS; Start 03/27/20 at 10:00; Stop 03/29/20 at 09:59; Status DC Milrinone Lactate/ Dextrose 100 ml @ 10.103 mls/ hr CONT PRN IV SEE I/O RECORD Last administered on 03/30/20at 09:19; Start 03/27/20 at 11:30; Stop 03/30/20 at 1 5:28; Status DC Epinephrine HCl (EPINEPHrine SYRINGE) 1 mg STK-MED ONCE .ROUTE ; Start 03/26/20 at 21:00; Stop 03/27/20 at 19:23; Status DC Sodium Bicarbonate (Sodium Bicarb Adult 8.4% Syr) 50 meq STK-MED ONCE .ROUTE ; Start 03/26/20 at 21:00; Stop 03/27/20 at 19:23; Status DC Potassium Chloride/Water 100 ml @ 100 mls/hr Q1H IV Last administered on 03/28/20at 08:18; Start 03/28/20 at 06:00; Stop 03/28/20 at 07:59; Status DC Amiodarone HCl (Cordarone) 200 mg BID PO Last administered on 03/29/20at 07:46; Start 03/28/20 at 21:00; Stop 03/29/20 at 10:29; Status DC Lidocaine HCl (Lidocaine HCl 2% Abboject) 80 mg 1X ONCE IV Last administered on 03/28/20at 19:55; Start 03/28/20 at 20:15; Stop 03/28/20 at 20:16; Status DC Amiodarone HCl (Cordarone) 200 mg 1X ONCE PO Last administered on 03/29/20at 13:55; Start 03/29/20 at 13:45; Stop 03/29/20 at 13:50; Status DC Amiodarone HCl (Cordarone) 400 mg DAILY PO Last administered on 04/09/20at 09:28; Start 03/30/20 at 09:00 Magnesium Sulfate 50 ml @ 25 mls/hr 1X ONCE IV Last administered on 03/30/20at 09:55; Start 03/30/20 at 09:45; Stop 03/30/20 at 11:44; Status DC Potassium Bicarbonate (Potassium Effervescent Tablet) 40 meq 1X ONCE PEG Last administered on 03/30/20at 09:54; Start 03/30/20 at 09:45; Stop 03/30/20 at 09:53; Status DC Potassium Bicarbonate (Potassium Effervescent Tablet) 40 meq 1X ONCE PO Last administered on 03/30/20at 13:40; Start 03/30/20 at 14:15; Stop 03/30/20 at 14:16; Status DC Epinephrine HCl (EPINEPHrine SYRINGE) 1 mg STK-MED ONCE .ROUTE ; Start 03/29/20 at 12:00; Stop 03/30/20 at 13:02; Status DC Lidocaine HCl (Lidocaine HCl 2% Abboject) 100 mg STK-MED ONCE .ROUTE ; Start 03/29/20 at 12:00; Stop 03/30/20 at 13:02; Status DC Milrinone Lactate/ Dextrose 100 ml @ 6.735 mls/ hr CONT PRN IV SEE I/O RECORD Last administered on 04/01/20at 20:33; Start 03/30/20 at 15:30; Stop 04/06/20 at 14:23; Status DC Magnesium Sulfate 50 ml @ 25 mls/hr 1X ONCE IV Last administered on 03/31/20at 08:38; Start 03/31/20 at 08:30; Stop 03/31/20 at 10:29; Status DC Potassium Bicarbonate (Potassium Effervescent Tablet) 40 meq 1X ONCE PEG Last administered on 03/31/20at 08:37; Start 03/31/20 at 08:00; Stop 03/31/20 at 08:01; Status DC Potassium Bicarbonate (Potassium Effervescent Tablet) 40 meq 1X ONCE PEG Last administered on 03/31/20at 12:31; Start 03/31/20 at 12:00; Stop 03/31/20 at 12:01; Status DC Potassium Bicarbonate (Potassium Effervescent Tablet) 80 meq 1X ONCE PO Last administered on 04/01/20at 10:05; Start 04/01/20 at 09:45; Stop 04/01/20 at 09:46; Status DC Potassium Bicarbonate (Potassium Effervescent Tablet) 20 meq 1X ONCE PEG Last administered on 04/01/20at 16:25; Start 04/01/20 at 16:15; Stop 04/01/20 at 16:16; Status DC Potassium Chloride/Water 100 ml @ 100 mls/hr Q1H IV Last administered on 04/02/20at 09:24; Start 04/02/20 at 07:30; Stop 04/02/20 at 09:29; Status DC Magnesium Sulfate 50 ml @ 25 mls/hr 1X ONCE IV Last administered on 04/02/20at 07:52; Start 04/02/20 at 07:30; Stop 04/02/20 at 09:29; Status DC Potassium Bicarbonate (Potassium Effervescent Tablet) 40 meq 1X ONCE PEG Last administered on 04/02/20at 09:34; Start 04/02/20 at 09:30; Stop 04/02/20 at 09:31; Status DC Enoxaparin Sodium (Lovenox 40mg Syringe) 40 mg Q24H SQ Last administered on 04/09/20at 13:00; Start 04/02/20 at 12:00 Magnesium Sulfate 50 ml @ 25 mls/hr 1X ONCE IV Last administered on 04/02/20at 11:47; Start 04/02/20 at 12:00; Stop 04/02/20 at 13:59; Status DC Nicardipine HCl 50 mg/Sodium Chloride 250 ml @ 25 mls/hr CONT PRN IV SEE I/O RECORD Last administered on 04/04/20at 17:16; Start 04/02/20 at 12:00; Stop 04/06/20 at 14:23; Status DC Sodium Chloride 1,000 ml @ 55 mls/hr [id number] IV Last administered on 04/04/20at 10:42; Start 04/03/20 at 12:00; Stop 04/06/20 at 15:46; Status DC Potassium Chloride/Water 100 ml @ 100 mls/hr Q1H IV Last administered on 04/03/20at 20:15; Start 04/03/20 at 17:30; Stop 04/03/20 at 21:29; Status DC Info (Tpn Per Pharmacy) 1 each PRN DAILY PRN MC SEE COMMENTS Last administered on 04/05/20at 10:41; Start 04/04/20 at 11:00; Stop 04/06/20 at 13:20; Status DC Amino Acids/ Glycerin/ Electrolytes 1,000 ml @ 80 mls/hr [id number] IV Last administered on 04/04/20at 11:00; Start 04/04/20 at 11:30; Stop 04/04/20 at 21:59; Status DC Potassium Chloride/Water 100 ml @ 100 mls/hr Q1H IV Last administered on 04/04/20at 16:21; Start 04/04/20 at 13:00; Stop 04/04/20 at 16:59; Status DC Sodium Chloride 90 meq/Potassium Chloride 50 meq/ Potassium Phosphate 13.6 mmol/Magnesium Sulfate 15 meq/ Calcium Gluconate 10 meq/ Multivitamins 5 ml/Zinc/Copper/ Manganese/ Selenium 1 ml/ Total Parenteral Nutrition/Amino Acids/Dextrose/ Fat Emulsion Intravenous 1,512 ml @ 63 mls/hr TPN CONT IV Last administered on 04/04/20at 20:50; Start 04/04/20 at 22:00; Stop 04/05/20 at 21:59; Status DC Metoprolol Tartrate (Lopressor Vial) 5 mg Q6HRS IVP Last administered on 04/06/20at 05:49; Start 04/05/20 at 10:00; Stop 04/06/20 at 11:55; Status DC Potassium Chloride/Water 100 ml @ 100 mls/hr Q1H IV Last administered on 04/05/20at 11:01; Start 04/05/20 at 10:00; Stop 04/05/20 at 11:59; Status DC Sodium Phosphate 15 mmol/Sodium Chloride 105 ml @ 105 mls/hr 1X ONCE IV Last administered on 04/05/20at 13:18; Start 04/05/20 at 12:00; Stop 04/05/20 at 12:59; Status DC Sodium Chloride 45 meq/Potassium Chloride 50 meq/ Potassium Phosphate 17 mmol/ Magnesium Sulfate 15 meq/ Multivitamins 5 ml/Zinc/Copper/ Manganese/ Selenium 1 ml/ Total Parenteral Nutrition/Amino Acids/Dextrose/ Fat Emulsion Intravenous 1,080 ml @ 45 mls/hr TPN CONT IV Last administered on 04/05/20at 22:34; Start 04/05/20 at 22:00; Stop 04/06/20 at 15:46; Status DC Barium Sulfate (Varibar Thin Liquid Apple) 148 gm 1X ONCE PO Last administered on 04/05/20at 12:30; Start 04/05/20 at 11:00; Stop 04/05/20 at 11:04; Status DC Potassium Chloride/Water 100 ml @ 100 mls/hr 1X ONCE IV ; Start 04/05/20 at 12:00; Stop 04/05/20 at 12:59; Status DC Info (Non-Icu Electrolyte Protocol) 1 ea CONT PRN PRN MC SEE COMMENTS; Start 04/05/20 at 19:00 Pantoprazole Sodium (Protonix) 40 mg DAILYAC PO Last administered on 04/09/20at 09:29; Start 04/07/20 at 07:30 Metoprolol Succinate (Toprol Xl) 50 mg DAILY PO Last administered on 04/09/20at 09:29; Start 04/06/20 at 12:30 Potassium Phosphate 13.6 mmol/Sodium Chloride 254.5333 ml @ 127.... Q2H IV Last administered on 04/06/20at 17:37; Start 04/06/20 at 14:00; Stop 04/06/20 at 17:59; Status DC Potassium Chloride 70 meq/ Potassium Phosphate 17 mmol/ Magnesium Sulfate 15 meq/ Multivitamins 5 ml/Zinc/Copper/ Manganese/ Selenium 1 ml/ Total Parenteral Nutrition/Amino Acids/Dextrose/ Fat Emulsion Intravenous 1,080 ml @ 45 mls/hr TPN CONT IV ; Start 04/06/20 at 22:00; Stop 04/06/20 at 13:22; Status DC Metoprolol Succinate (Toprol Xl) 50 mg DAILY PO Last administered on 04/06/20at 14:30; Start 04/06/20 at 14:30; Stop 04/07/20 at 11:25; Status DC Lisinopril (Prinivil) 5 mg DAILY PO Last administered on 04/09/20at 09:29; Start 04/07/20 at 09:00 Haloperidol Lactate (Haldol Inj) 5 mg PRN Q8HRS PRN IVP AGITATION, 2ND CHOICE Last administered on 04/07/20at 11:07; Start 04/06/20 at 23:30 Lorazepam (Ativan Inj) 1 mg PRN Q4HRS PRN IVP MODERATE ANXIETY / AGITATION Last administered on 04/07/20at 05:01; Start 04/06/20 at 23:30 Lorazepam (Ativan Inj) 2 mg PRN Q4HRS PRN IVP SEVERE ANXIETY / AGITATION; Start 04/06/20 at 23:30 Active Scripts Active Furosemide 40 Mg Tablet 40 Mg PO DAILY 90 Days Tramadol Hcl 50 Mg Tablet 50 Mg PO PRN Q6HRS PRN 6 Days Metoprolol Succinate ( Xl ) (Metoprolol Succinate) 25 Mg Tab.er.24h 12.5 Mg PO DAILY 90 Days Clopidogrel (Clopidogrel Bisulfate) 75 Mg Tablet 75 Mg PO DAILYWBKFT 90 Days Lisinopril 10 Mg Tablet 1 Tab PO DAILY 90 Days Atorvastatin Calcium 80 Mg Tablet 80 Mg PO QHS 90 Days Reported Klor-Con M20 (Potassium Chloride) 20 Meq Tab.er.prt 20 Meq PO TID Pantoprazole Sodium (Pantoprazole Sodium) 40 Mg Tablet.dr 40 Mg PO BID Duoneb 0.5-3(2.5) Mg/3 Ml (Albuterol/Ipratropium) 3 Ml Ampul.neb 3 Ml NEB PRN Q6HRS PRN Acetaminophen 325 Mg Tablet 1 Tab PO PRN Q6HRS PRN 24 Days Triumeq Tablet (Abacavir/Dolutegravir/Lamivudi) 1 Each Tablet 1 Tab PO DAILY 30 Days Gabapentin (Gabapentin) 300 Mg Capsule 100 Mg PO TID Children's Aspirin (Aspirin) 81 Mg Tab.chew 1 Tab PO DAILY 30 Days Vitals/I & O Vital Sign - Last 24 Hours 04/08/20 04/08/20 04/08/20 04/09/20 19:00 19:12 22:52 02:57 Temp 98.4 99.0 99.7 98.4 99.0 99.7 Pulse 78 82 69 Resp 16 18 18 B/P (MAP) 110/72 (85) 129/82 (98) 104/59 (74) Pulse Ox 95 98 96 O2 Delivery Room Air Room Air Room Air Room Air 04/09/20 04/09/20 04/09/20 04/09/20 07:00 08:00 09:28 09:29 Temp 98.4 98.4 Pulse 93 93 93 Resp 16 B/P (MAP) 115/74 (88) 115/74 115/74 Pulse Ox 98 O2 Delivery Room Air Room Air 04/09/20 04/09/20 09:29 10:51 Temp 97.7 97.7 Pulse 93 96 Resp 16 B/P (MAP) 115/74 121/70 (87) Pulse Ox 98 O2 Delivery Room Air Intake and Output 04/08/20 04/08/2021 15:00 23:00 07:00 Intake Total 360 ml 360 ml 100 ml Output Total 1300 ml 100 ml Balance 360 ml -940 ml 0 ml Justicifation of Admission Dx: Justifications for Admission: Justification of Admission Dx: Yes RONNIE DAVILA MD Apr 09, 2020 14:58
[2020-04-09 15:00] VITALS: BP 115/73
--- NOTE | 2020-04-09 16:17 | NUR ---
RD consult for cardiac education/options for take out. Spoke w/pt and pt's partner on [employer]. Provided pt w/copy of handout from Nutrition Care Manual on heart-healthy diet education; also gave copy of this RDs card w/contact information. Discussed ways to choose healthier options when eating out (salads w/dressing on the side, including a protein w/each meal, choosing grilled meats over fried meats, choosing unsaturated fats instead of saturated fat sources, etc). Pt engaged during diet education, appropriate questions asked, anticipate moderate compliance. RD available [phone] as needed. Will continue to monitor and follow up as scheduled/able
[2020-04-09] MEDS ORDERED: POTASSIUM CHLORIDE 20 MEQ TABLET.ER. PO ONE (16:30)
[2020-04-09 19:33] VITALS: BP 108/61
[2020-04-09] MEDS: ATORVASTATIN CALCIUM 40 MG TABLET. PO SCH (21:03)
[2020-04-09 22:36] VITALS: BP 92/58
[2020-04-10 02:05] VITALS: BP 106/72
[2020-04-10 05:47] LABS: ALBUMIN 2.9 g/dL (3.4-5.0); ALBUMIN/GLOBULIN RATIO 0.6 (1.0-1.7); CALCIUM 8.7 mg/dL (8.5-10.1); CREATININE 1.1 mg/dL (0.7-1.3); GFR 85.1; TOTAL BILIRUBIN 0.2 mg/dL (0.2-1.0); TOTAL PROTEIN 7.7 g/dL (6.4-8.2)
[2020-04-10 06:00] LABS: BASO # 0.1 x10^3/uL (0.0-0.2); BASO % 1 % (0-3); EOS # 0.2 x10^3/uL (0.0-0.7); EOS % 3 % (0-3); HEMATOCRIT 26.9 % (39.0-53.0); HEMOGLOBIN 8.4 g/dL (13.0-17.5); LYMPH # 3.3 x10^3/uL (1.0-4.8); LYMPH % 51 % (24-48); MEAN CORPUSCULAR HEMOGLOBIN 24 pg (25-35); MEAN CORPUSCULAR HGB CONC 31 g/dL (31-37); MEAN CORPUSCULAR VOLUME 77 fL (79-100); MONO # 0.5 x10^3/uL (0.0-1.1); MONO % 7 % (0-9); NEUT # 2.5 x10^3/uL (1.8-7.7); NEUT % 37 % (31-73); PLATELET COUNT 645 x10^3/uL (140-400); RED BLOOD COUNT 3.47 x10^6/uL (4.30-5.70); RED CELL DISTRIBUTION WIDTH 18.4 % (11.5-14.5); WHITE BLOOD COUNT 6.6 x10^3/uL (4.0-11.0)
[2020-04-10 06:50] VITALS: BP 127/90
--- NOTE | 2020-04-10 07:25 | NUR ---
Patient fell in room at 0650 as he was trying to ambulate to bathroom without assistance despite many times reorienting him to need to use call light for assistance, bed alarm found in off position as patient has been eating at tray table while sitting at bedside. No injuries observed, Dr. Sophy paz, VSS see spreadsheet. Fall witnessed by this RN as I was entering room when this RN noticed the patient standing up at bedside. Pt denies pain.
[2020-04-10] MEDS ORDERED: POTASSIUM CHLORIDE 20 MEQ TABLET.ER. PO SCH (08:00)
[2020-04-10] MEDS: LAMIVUDINE PO SCH (08:24)
[2020-04-10] MEDS: METOPROLOL SUCC 24HR ER 50 MG TAB.ER.24H. PO SCH (08:24)
[2020-04-10] MEDS: PANTOPRAZOLE 40 MG TABLET.DR. PO SCH (08:24)
[2020-04-10] MEDS: DOLUTEGRAVIR PO SCH (08:24)
[2020-04-10] MEDS: ABACAVIR PO SCH (08:24)
[2020-04-10] MEDS: AMIODARONE HCL 200 MG TABLET. PO SCH (08:25)
[2020-04-10] MEDS: LISINOPRIL 5 MG TABLET. PO SCH (08:25)
[2020-04-10] MEDS: CLOPIDOGREL BISULFATE 75 MG TABLET PO SCH (08:26)
[2020-04-10] MEDS: ENOXAPARIN 40 MG/0.4 ML SYRINGE. SQ SCH (08:26)
--- NOTE | 2020-04-10 08:44 | PDOC ---
Infectious Disease Note Subjective: Subjective Patient denies any complaints Vital Signs: Vital Signs Vital Signs Date Time Temp Pulse Resp B/P (MAP) Pulse Ox O2 Delivery O2 Flow Rate FiO2 04/10/20 08:25 100 127/90 04/10/20 07:45 Room Air 04/10/20 06:50 97.9 22 99 97.9 Physical Exam: PHYSICAL EXAM GENERAL: alert awake male on nasal O2 HEENT: Normocephalic atraumatic pupils equal, reactive. NECK: Supple. Central line present LUNGS: Clear anteriorly. HEART: S1, S2, no murmurs ABDOMEN: Obese, mildly distended. Bowel sounds present. EXTREMITIES: No edema or cyanosis. Superficial thrombophlebitis right upper extremity latter improved DERMATOLOGIC: Warm and dry. No generalized rash. NEUROLOGIC alert oriented x3 grossly nonfocal Medications: Inpatient Meds: Current Medications Medications (Trade) Dose Ordered Sig/Guy Start Time Stop Time Status Last Admin Dose Admin Acetaminophen (Tylenol) 650 mg PRN Q6HRS PRN 03/20/20 09:00 03/27/20 20:51 650 MG Amino Acids/ Glycerin/ Electrolytes 1,000 ml @ 80 mls/hr [id number] 04/04/20 11:30 04/04/20 21:59 DC 04/04/20 11:00 80 MLS/HR Amiodarone HCl (Cordarone) 400 mg DAILY 03/30/20 09:00 04/10/20 08:25 400 MG Amiodarone HCl 150 mg/Dextrose 103 ml @ 618 mls/hr 1X ONCE 03/26/20 19:45 03/26/20 19:54 DC 03/26/20 19:44 618 MLS/HR Amiodarone HCl 450 mg/Dextrose 259 ml @ 16.7 mls/hr CONT PRN 03/27/20 03:00 03/27/20 18:16 DC 03/27/20 18:15 16.7 MLS/HR Atorvastatin Calcium (Lipitor) 80 mg QHS 03/20/20 21:00 04/09/20 21:03 80 MG Atropine Sulfate (ATROPINE 0.5mg SYRINGE) 0.5 mg PRN Q5MIN PRN 03/27/20 01:45 03/27/20 16:31 DC Barium Sulfate (Varibar Thin Liquid Apple) 148 gm 1X ONCE 04/05/20 11:00 04/05/20 11:04 DC 04/05/20 12:30 148 GM Chlorhexidine Gluconate (Peridex) 15 ml BID 03/26/20 21:00 03/28/20 11:44 DC 03/27/20 20:51 15 ML Clopidogrel Bisulfate (Plavix) 75 mg DAILYWBKFT 03/20/20 12:00 04/10/20 08:26 75 MG Dexmedetomidine HCl 400 mcg/ Sodium Chloride 100 ml @ 0 mls/hr CONT PRN 03/27/20 01:45 04/05/20 18:53 DC 04/03/20 01:36 9 MLS/HR Docusate Sodium (Colace Solution) 100 mg BID 03/20/20 09:00 03/26/20 15:28 DC 03/26/20 08:35 100 MG Dopamine HCl/ Dextrose 250 ml @ 17.681 mls/ hr CONT PRN 03/20/20 04:30 Enoxaparin Sodium (Lovenox 40mg Syringe) 40 mg Q24H 04/02/20 12:00 04/10/20 08:26 40 MG Epinephrine HCl (EPINEPHrine SYRINGE) 1 mg STK-MED ONCE 03/29/20 12:00 03/30/20 13:02 DC Etomidate (Amidate) 20 mg STK-MED ONCE 03/26/20 23:34 03/26/20 23:35 DC Famotidine (Pepcid Vial) 20 mg BID 03/20/20 11:00 03/20/20 12:35 DC Fentanyl Citrate 30 ml @ 0 mls/hr CONT PRN 03/26/20 19:15 UNV Fentanyl Citrate (Fentanyl 2ml Vial) 50 mcg PRN Q1HR PRN 03/26/20 19:15 04/04/20 02:45 50 MCG Furosemide (Lasix) 40 mg DAILY 04/10/20 09:00 04/10/20 08:25 40 MG Haloperidol Lactate (Haldol Inj) 5 mg PRN Q8HRS PRN 04/06/20 23:30 04/07/20 11:07 5 MG Heparin Sodium (Porcine) (Heparin Sodium) 2,400 unit PRN Q6HRS PRN 03/20/20 04:30 03/22/20 10:15 DC 12/30/20 14:17 2,400 UNIT Heparin Sodium/ Dextrose 250 ml @ 0 mls/hr CONT PRN 03/20/20 04:30 03/22/20 10:15 DC 03/21/20 22:15 19.8 MLS/HR Heparin Sodium/ Sodium Chloride (HEPARIN for ARTERIAL LINE FLUSH) 1,000 unit 1X ONCE 03/27/20 10:00 03/27/20 10:01 DC 03/27/20 10:00 1,000 UNIT Info (CONTRAST GIVEN -- Rx MONITORING) 1 each PRN DAILY PRN 03/27/20 10:00 03/29/20 09:59 DC Info (Icu Electrolyte Protocol) 1 ea DAILY 03/21/20 09:00 04/05/20 18:53 DC 04/05/20 09:00 1 EA Info (Non-Icu Electrolyte Protocol) 1 ea CONT PRN PRN 04/05/20 19:00 Info (Tpn Per Pharmacy) 1 each PRN DAILY PRN 04/04/20 11:00 04/06/20 13:20 DC 04/05/20 10:41 1 EACH Iodixanol (Visipaque 320) 100 ml 1X ONCE 03/27/20 10:00 03/27/20 10:01 DC 03/27/20 11:05 107 ML Labetalol HCl (Normodyne Iv Push) 10 mg PRN Q2HR PRN 03/26/20 19:15 Lidocaine HCl (Lidocaine 1% 20ml Vial) 20 ml 1X ONCE 03/27/20 10:00 03/27/20 10:01 DC 03/27/20 10:41 13 ML Lidocaine HCl (Lidocaine HCl 2% Abboject) 100 mg STK-MED ONCE 03/29/20 12:00 03/30/20 13:02 DC Linezolid/Dextrose 300 ml @ 300 mls/hr Q12HR 03/21/20 09:00 03/28/20 08:39 DC 03/28/20 08:19 300 MLS/HR Lisinopril (Prinivil) 5 mg DAILY 04/07/20 09:00 04/10/20 08:25 5 MG Lorazepam (Ativan Inj) 2 mg PRN Q4HRS PRN 04/06/20 23:30 Magnesium Sulfate 50 ml @ 25 mls/hr 1X ONCE 04/02/20 12:00 04/02/20 13:59 DC 04/02/20 11:47 25 MLS/HR Metoprolol Succinate (Toprol Xl) 50 mg DAILY 04/06/20 14:30 04/07/20 11:25 DC 04/06/20 14:30 50 MG Metoprolol Tartrate (Lopressor Vial) 5 mg Q6HRS 04/05/20 10:00 04/06/20 11:55 DC 04/06/20 05:49 5 MG Midazolam HCl 100 ml @ 0 mls/hr CONT PRN 03/26/20 19:15 04/05/20 18:53 DC 04/01/20 12:21 5 MLS/HR Milrinone Lactate/ Dextrose 100 ml @ 6.735 mls/ hr CONT PRN 03/30/20 15:30 04/06/20 14:23 DC 04/01/20 20:33 6.735 MLS/HR Morphine Sulfate (Morphine Sulfate) 4 mg PRN Q1HR PRN 03/26/20 19:15 03/28/20 22:35 DC Nicardipine HCl 50 mg/Sodium Chloride 250 ml @ 25 mls/hr CONT PRN 04/02/20 12:00 04/06/20 14:23 DC 04/04/20 17:16 12.5 MLS/HR Non-Formulary Medication (ABACAVIR/ DOLUTEGRAVIR/ LAMIVUDINE (Triumeq) tablet) 1 ea DAILY 03/20/20 17:00 04/10/20 08:24 1 EA Norepinephrine Bitartrate 8 mg/ Dextrose 258 ml @ 18.247 mls/ hr CONT PRN 03/20/20 04:15 04/06/20 10:08 DC 03/28/20 19:12 18.247 MLS/HR Olanzapine (ZyPREXA ZYDIS) 5 mg PRN Q4HRS PRN 03/26/20 19:15 04/10/20 04:44 5 MG Ondansetron HCl (Zofran) 4 mg PRN Q6HRS PRN 03/20/20 10:30 04/04/20 05:24 4 MG Pantoprazole Sodium (PROTONIX VIAL for IV PUSH) 40 mg DAILYAC 03/20/20 12:30 04/06/20 10:06 DC 04/06/20 08:39 40 MG Pantoprazole Sodium (Protonix) 40 mg DAILYAC 04/07/20 07:30 04/10/20 08:24 40 MG Piperacillin Sod/ Tazobactam Sod (Zosyn Per Pharmacy) 1 each PRN DAILY PRN 03/20/20 09:30 04/04/20 10:19 DC Piperacillin Sod/ Tazobactam Sod 3.375 gm/Sodium Chloride 50 ml @ 100 mls/hr Q6HRS 03/20/20 10:00 04/04/20 08:17 DC 04/04/20 06:03 100 MLS/HR Potassium Bicarbonate (Potassium Effervescent Tablet) 40 meq 1X ONCE 04/02/20 09:30 04/02/20 09:31 DC 04/02/20 09:34 40 MEQ Potassium Chloride 70 meq/ Potassium Phosphate 17 mmol/ Magnesium Sulfate 15 meq/ Multivitamins 5 ml/Zinc/Copper/ Manganese/ Selenium 1 ml/ Total Parenteral Nutrition/Amino Acids/Dextrose/ Fat Emulsion Intravenous 1,080 ml @ 45 mls/hr TPN CONT 04/06/20 22:00 04/06/20 13:22 DC Potassium Chloride/Water 100 ml @ 100 mls/hr 1X ONCE 04/05/20 12:00 04/05/20 12:59 DC Potassium Phosphate 13.6 mmol/Sodium Chloride 254.5333 ml @ 127.... Q2H 04/06/20 14:00 04/06/20 17:59 DC 04/06/20 17:37 127.267 MLS/HR Potassium Chloride (Klor-Con) 60 meq 1X ONCE 04/09/20 16:30 04/09/20 16:33 DC 04/09/20 17:28 60 MEQ Propofol 100 ml @ 0 mls/hr CONT PRN 03/26/20 19:15 04/05/20 18:53 DC 04/03/20 05:44 18.7 MLS/HR Sodium Bicarbonate (Sodium Bicarb Adult 8.4% Syr) 50 meq STK-MED ONCE 03/26/20 21:00 03/27/20 19:23 DC Sodium Chloride (Normal Saline Flush) 3 ml QSHIFT PRN 03/20/20 10:30 Sodium Chloride 45 meq/Potassium Chloride 50 meq/ Potassium Phosphate 17 mmol/ Magnesium Sulfate 15 meq/ Multivitamins 5 ml/Zinc/Copper/ Manganese/ Selenium 1 ml/ Total Parenteral Nutrition/Amino Acids/Dextrose/ Fat Emulsion Intravenous 1,080 ml @ 45 mls/hr TPN CONT 04/05/20 22:00 04/06/20 15:46 DC 04/05/20 22:34 45 MLS/HR Sodium Chloride 90 meq/Potassium Chloride 50 meq/ Potassium Phosphate 13.6 mmol/Magnesium Sulfate 15 meq/ Calcium Gluconate 10 meq/ Multivitamins 5 ml/Zinc/Copper/ Manganese/ Selenium 1 ml/ Total Parenteral Nutrition/Amino Acids/Dextrose/ Fat Emulsion Intravenous 1,512 ml @ 63 mls/hr TPN CONT 04/04/20 22:00 04/05/20 21:59 DC 04/04/20 20:50 63 MLS/HR Sodium Phosphate 15 mmol/Sodium Chloride 105 ml @ 105 mls/hr 1X ONCE 04/05/20 12:00 04/05/20 12:59 DC 04/05/20 13:18 105 MLS/HR Succinylcholine Chloride (Anectine) 200 mg STK-MED ONCE 03/26/20 23:34 03/26/20 23:35 DC Vancomycin HCl (Vancomycin Oral Solution) 125 mg BID 03/20/20 21:30 04/04/20 08:17 DC 04/03/20 08:17 125 MG Labs: Lab Laboratory Tests Test 04/10/20 05:00 White Blood Count 6.6 x10^3/uL (4.0-11.0) Red Blood Count 3.47 x10^6/uL (4.30-5.70) Hemoglobin 8.4 g/dL (13.0-17.5) Hematocrit 26.9 % (39.0-53.0) Mean Corpuscular Volume 77 fL (79-100) Mean Corpuscular Hemoglobin 24 pg (25-35) Mean Corpuscular Hemoglobin Concent 31 g/dL (31-37) Red Cell Distribution Width 18.4 % (11.5-14.5) Platelet Count 645 x10^3/uL (140-400) Neutrophils (%) (Auto) 37 % (31-73) Lymphocytes (%) (Auto) 51 % (24-48) Monocytes (%) (Auto) 7 % (0-9) Eosinophils (%) (Auto) 3 % (0-3) Basophils (%) (Auto) 1 % (0-3) Neutrophils # (Auto) 2.5 x10^3/uL (1.8-7.7) Lymphocytes # (Auto) 3.3 x10^3/uL (1.0-4.8) Monocytes # (Auto) 0.5 x10^3/uL (0.0-1.1) Eosinophils # (Auto) 0.2 x10^3/uL (0.0-0.7) Basophils # (Auto) 0.1 x10^3/uL (0.0-0.2) Sodium Level 140 mmol/L (136-145) Potassium Level 4.0 mmol/L (3.5-5.1) Chloride Level 106 mmol/L (98-107) Carbon Dioxide Level 24 mmol/L (21-32) Anion Gap 10 (6-14) Blood Urea Nitrogen 10 mg/dL (8-26) Creatinine 1.1 mg/dL (0.7-1.3) Estimated GFR (Cockcroft-Gault) 85.1 BUN/Creatinine Ratio 9 (6-20) Glucose Level 150 mg/dL (70-99) Calcium Level 8.7 mg/dL (8.5-10.1) Total Bilirubin 0.2 mg/dL (0.2-1.0) Aspartate Amino Transf (AST/SGOT) 31 U/L (15-37) Alanine Aminotransferase (ALT/SGPT) 31 U/L (16-63) Alkaline Phosphatase 75 U/L (46-116) Total Protein 7.7 g/dL (6.4-8.2) Albumin 2.9 g/dL (3.4-5.0) Albumin/Globulin Ratio 0.6 (1.0-1.7) Objective: Assessment: 1. Fever, likely aspiration. Resolved 2. Witnessed cardiac arrest, status post defibrillation. 3. Leukocytosis and lactic acidosis. 4. Human immunodeficiency virus, stable CD4 496 March 2019 was 403 on 01/16 viral load less than 20 on 01/23,on Triumeq. 5. Acute hypoxic respiratory failure Extubated, reintubated Mar 26 6. History of ventricular tachycardia, Coronary artery disease, status post PCI. 7. Status post pacemaker for bradycardia 12/27 at [place]. 8. History of acute kidney injury, on hemodialysis in the past. 9. 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 10. Substance dependence. UDS positive for cocaine at outside hospital. 11. Hypertension/hyperlipidemia 12. Hypokalemia/hypomagnesemia. 13. H/O Chronic systolic congestive heart failure. 14. History of rectal abscess. 15. History of Necrotizing Pneumonia with Klebsiella at [facility] November 2019 16. V. fib arrest, torsades here on Mar 26. Severe cardiomyopathy 20. Anemia of chronic disease 21. History of noncompliance 22. Oropharyngeal dysphagia,hoarseness of voice,chronic Plan: Plan of Care Continue Triumeq, Maintain aspiration precautions Continue supportive care narayanan discontinued DC central line plans are for tx to rehab later today Discussed with nursing. MILLY NICOLE MD Apr 10, 2020 08:43
[2020-04-10] MEDS ORDERED: FUROSEMIDE 40 MG TABLET. PO SCH (09:00)
--- NOTE | 2020-04-10 10:05 | PDOC ---
Date of Service: DATE: 04/10/20 TIME: 10:03 Objective: Objective: No GI concerns per nurse - possible DC today to rehab - says still w/ some confusion but much better. Vital Signs: Vital Signs Date Time Temp Pulse Resp B/P (MAP) Pulse Ox O2 Delivery O2 Flow Rate FiO2 04/10/20 08:25 100 127/90 04/10/20 07:45 Room Air 04/10/20 06:50 97.9 22 99 97.9 Labs: Laboratory Tests Test 04/10/20 05:00 White Blood Count 6.6 x10^3/uL Red Blood Count 3.47 x10^6/uL Hemoglobin 8.4 g/dL Hematocrit 26.9 % Mean Corpuscular Volume 77 fL Mean Corpuscular Hemoglobin 24 pg Mean Corpuscular Hemoglobin Concent 31 g/dL Red Cell Distribution Width 18.4 % Platelet Count 645 x10^3/uL Neutrophils (%) (Auto) 37 % Lymphocytes (%) (Auto) 51 % Monocytes (%) (Auto) 7 % Eosinophils (%) (Auto) 3 % Basophils (%) (Auto) 1 % Neutrophils # (Auto) 2.5 x10^3/uL Lymphocytes # (Auto) 3.3 x10^3/uL Monocytes # (Auto) 0.5 x10^3/uL Eosinophils # (Auto) 0.2 x10^3/uL Basophils # (Auto) 0.1 x10^3/uL Sodium Level 140 mmol/L Potassium Level 4.0 mmol/L Chloride Level 106 mmol/L Carbon Dioxide Level 24 mmol/L Anion Gap 10 Blood Urea Nitrogen 10 mg/dL Creatinine 1.1 mg/dL Estimated GFR (Cockcroft-Gault) 85.1 BUN/Creatinine Ratio 9 Glucose Level 150 mg/dL Calcium Level 8.7 mg/dL Total Bilirubin 0.2 mg/dL Aspartate Amino Transf (AST/SGOT) 31 U/L Alanine Aminotransferase (ALT/SGPT) 31 U/L Alkaline Phosphatase 75 U/L Total Protein 7.7 g/dL Albumin 2.9 g/dL Albumin/Globulin Ratio 0.6 PE: GEN: NAD LUNGS: on room air HEART: RR ABD: non-distended NEURO/PSYCH: sleeping, not awakened A/P: S/p arrests, encephalopathy Anemia - stable, on Plavix H/o GI bleeding - none here COVID negative 04/08 H/o substance abuse, non-compliance -- DC per primary. Continue PPI. Justicifation of Admission Dx: Justifications for Admission: Justification of Admission Dx: Yes YNES CLEARY Apr 10, 2020 10:05
[2020-04-10] MEDS ORDERED: LISI-517 PO (10:11)
[2020-04-10] MEDS ORDERED: METO50TA4 PO (10:11)
[2020-04-10] MEDS ORDERED: TRAM50TA PO (10:11)
[2020-04-10] MEDS ORDERED: AMIO200T6 PO (10:11)
--- NOTE | 2020-04-10 10:15 | SNU/HH DC ---
DISCHARGE ORDERS DISCHARGE INFORMATION: DISCHARGE DATE: Apr 10, 2020 FINAL DIAGNOSIS 1. witnessed cardiac arrest; outside of hospital, Defibrillation // AMI ruled out. 2. H/o Vfib probable ischemic in nature, antiarrhythmics discontinued in past due to QTc prolongation of 600. 3. Acute hypoxic respiratory failure requiring vent support 4. CAD s/p PCI/BMS to the LCx 12/11/19. 5. Chronic systolic CHF 6. ischemic cardiomyopathy LVEF 20-25%. 7. SSS s/p leadless PPM 8. Hypertension; // requiring pressor support 9. Hypokalemia, hypomagnesemia 10. prior acute renal failure, had been requiringHD; renal function improvedand HD catheter removed 11. 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 HIV, on meds, stable - CD4 was 403 on 01/16 viral load less than 20 13. Substance abuse; UDS + cocaine , ALCOHOL, TOBACCO 14. Leukocytosis, fevers. + SIRS, tus post PCI. 15. Status post pacemaker for bradycardia 12/27 at [place]. CONDITION ON DISCHARGE: Stable CODE STATUS: Code Status: Full POST DISCHARGE ORDERS: ACTIVITY ORDERS: Activity as tolerated, Progressive ambulation WEIGHT BEARING STATUS: As tolerated DIET AFTER DISCHARGE: Cardiac CHECKS AFTER DISCHARGE: CHECKS AFTER DISCHARGE: Check blood press - daily, Check your Temp as needed, Weigh Yourself Daily FOLLOW-UP: PHYSICIAN FOLLOW-UP: primary care 2 weeks ADDITIONAL FOLLOW-UP: cardiology 1 month, may taper amiodarone Additional Instructions: fall risk, TREATMENT/EQUIPMENT ORDERS: ADAPTIVE EQUIPMENT NEEDED: Front wheeled walker Physical Therapy For: Evalulation/Treatment Occupational Therapy For: Evaluation/Treatment Speech Language Pathology For: Evaluation/Treatment DISCHARGE MEDICATIONS: Home Meds Active Scripts Lisinopril (LISINOPRIL) 5 Mg Tablet, 5 MG PO DAILY for htn, #30 TAB Prov:RONNIE DAVILA MD 04/10/20 Metoprolol Succinate (Toprol XL) 50 Mg Tab.er.24h, 50 MG PO DAILY for cardiac, #30 TAB.SR Prov:RONNIE DAVILA MD 04/10/20 Amiodarone Hcl (AMIODARONE HCL) 200 Mg Tablet, 400 MG PO DAILY for cardiac arrythmia, , #60 TAB Prov:RONNIE DAVILA MD 04/10/20 Tramadol Hcl (TRAMADOL HCL) 50 Mg Tablet, 50 MG PO PRN Q6HRS PRN for MODERATE PAIN 4-6 for 6 Days, #15 TAB Prov:RONNIE DAVILA MD 04/10/20 Furosemide (FUROSEMIDE) 40 Mg Tablet, 40 MG PO DAILY for Chronic systolic CHF for 90 Days, #90 TAB 3 Refills Prov:ALEXANDRA LEON MD 02/02/20 Clopidogrel Bisulfate (CLOPIDOGREL) 75 Mg Tablet, 75 MG PO DAILYWBKFT for CAD with DASHA for 90 Days, #90 TAB 3 Refills Prov:ALEXANDRA LEON MD 02/02/20 Atorvastatin Calcium (Atorvastatin Calcium) 80 Mg Tablet, 80 MG PO QHS for FOR HIGH CHOLESTEROL for 90 Days, #90 TAB 3 Refills Prov:ALEXANDRA LEON MD 02/02/20 Reported Medications Potassium Chloride (KLOR-CON M20) 20 Meq Tab.er.prt, 20 MEQ PO TID for SUPPLEMENT , TAB.SR 01/31/20 Pantoprazole Sodium (PANTOPRAZOLE SODIUM ) 40 Mg Tablet.dr, 40 MG PO BID for GERD, TAB 01/31/20 Ipratropium/Albuterol Sulfate (DUONEB 0.5-3(2.5) MG/3 ML) 3 Ml Ampul.neb, 3 ML NEB PRN Q6HRS PRN for WHEEZING, EACH 01/31/20 Acetaminophen (ACETAMINOPHEN) 325 Mg Tablet, 1 TAB PO PRN Q6HRS PRN for pain or fever for 24 Days, #100 TAB 0 Refills 01/31/20 Abacavir/Dolutegravir/Lamivudi (Triumeq Tablet) 1 Each Tablet, 1 TAB PO DAILY for HIV TREATMENT for 30 Days, #30 TAB 0 Refills 01/31/20 Gabapentin (GABAPENTIN ) 300 Mg Capsule, 100 MG PO TID for NEUROGENIC PAIN, CAP 01/31/20 Aspirin (Children's Aspirin) 81 Mg Tab.chew, 1 TAB PO DAILY for bld thinner/hx CAD/PCI for 30 Days, #30 TAB 0 Refills 01/31/20 Discontinued Scripts Metoprolol Succinate (METOPROLOL SUCCINATE ( XL )) 25 Mg Tab.er.24h, 12.5 MG PO DAILY for CAD/CHF for 90 Days, #45 TAB.SR 3 Refills Prov:ALEXANDRA LEON MD 02/02/20 Lisinopril (LISINOPRIL) 10 Mg Tablet, 1 TAB PO DAILY for HTN for 90 Days, #90 TAB 3 Refills Prov:ALEXANDRA LEON MD 02/02/20 RONNIE DAVILA MD Apr 10, 2020 10:15
--- NOTE | 2020-04-10 10:19 | PDOC3 ---
Discharge Summary Visit Information Date of Admission: Mar 20, 2020 Date of Discharge: Apr 10, 2020 Final Diagnosis 1. witnessed cardiac arrest; outside of hospital, Defibrillation // AMI ruled out. 2. H/o Vfib probable ischemic in nature, antiarrhythmics discontinued in past due to QTc prolongation of 600. 3. Acute hypoxic respiratory failure requiring vent support 4. CAD s/p PCI/BMS to the LCx 12/11/19. 5. Chronic systolic CHF 6. ischemic cardiomyopathy LVEF 20-25%. 7. SSS s/p leadless PPM 8. Hypertension; // requiring pressor support 9. Hypokalemia, hypomagnesemia 10. prior acute renal failure, had been requiringHD; renal function improvedand HD catheter removed 11. 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 HIV, on meds, stable - CD4 was 403 on 01/16 viral load less than 20 13. Substance abuse; UDS + cocaine , ALCOHOL, TOBACCO 14. Leukocytosis, fevers. + SIRS, tus post PCI. 15. Status post pacemaker for bradycardia 12/27 at [place]. Brief Hospital Course Allergies Allergies Coded Allergies Type Severity Reaction Last Updated Verified No Known Drug Allergies 01/30/20 No Vital Signs Vital Signs Date Time Temp Pulse Resp B/P (MAP) Pulse Ox O2 Delivery O2 Flow Rate FiO2 04/10/20 08:25 100 127/90 04/10/20 07:45 Room Air 04/10/20 06:50 97.9 22 99 97.9 Lab Results Laboratory Tests Test 04/08/20 22:50 04/09/20 05:50 04/10/20 05:00 Coronavirus (PCR) Not detected (Not Detected) SARS-CoV-2 Antigen (Rapid) Negative (NEGATIVE) White Blood Count 7.9 x10^3/uL (4.0-11.0) 6.6 x10^3/uL (4.0-11.0) Red Blood Count 3.76 x10^6/uL (4.30-5.70) 3.47 x10^6/uL (4.30-5.70) Hemoglobin 9.1 g/dL (13.0-17.5) 8.4 g/dL (13.0-17.5) Hematocrit 28.8 % (39.0-53.0) 26.9 % (39.0-53.0) Mean Corpuscular Volume 77 fL (79-100) 77 fL (79-100) Mean Corpuscular Hemoglobin 24 pg (25-35) 24 pg (25-35) Mean Corpuscular Hemoglobin Concent 32 g/dL (31-37) 31 g/dL (31-37) Red Cell Distribution Width 18.9 % (11.5-14.5) 18.4 % (11.5-14.5) Platelet Count 713 x10^3/uL (140-400) 645 x10^3/uL (140-400) Neutrophils (%) (Auto) 46 % (31-73) 37 % (31-73) Lymphocytes (%) (Auto) 43 % (24-48) 51 % (24-48) Monocytes (%) (Auto) 7 % (0-9) 7 % (0-9) Eosinophils (%) (Auto) 4 % (0-3) 3 % (0-3) Basophils (%) (Auto) 0 % (0-3) 1 % (0-3) Neutrophils # (Auto) 3.6 x10^3/uL (1.8-7.7) 2.5 x10^3/uL (1.8-7.7) Lymphocytes # (Auto) 3.4 x10^3/uL (1.0-4.8) 3.3 x10^3/uL (1.0-4.8) Monocytes # (Auto) 0.5 x10^3/uL (0.0-1.1) 0.5 x10^3/uL (0.0-1.1) Eosinophils # (Auto) 0.3 x10^3/uL (0.0-0.7) 0.2 x10^3/uL (0.0-0.7) Basophils # (Auto) 0.0 x10^3/uL (0.0-0.2) 0.1 x10^3/uL (0.0-0.2) Sodium Level 141 mmol/L (136-145) 140 mmol/L (136-145) Potassium Level 3.6 mmol/L (3.5-5.1) 4.0 mmol/L (3.5-5.1) Chloride Level 105 mmol/L (98-107) 106 mmol/L (98-107) Carbon Dioxide Level 25 mmol/L (21-32) 24 mmol/L (21-32) Anion Gap 11 (6-14) 10 (6-14) Blood Urea Nitrogen 11 mg/dL (8-26) 10 mg/dL (8-26) Creatinine 1.1 mg/dL (0.7-1.3) 1.1 mg/dL (0.7-1.3) Estimated GFR (Cockcroft-Gault) 85.1 85.1 BUN/Creatinine Ratio 10 (6-20) 9 (6-20) Glucose Level 122 mg/dL (70-99) 150 mg/dL (70-99) Calcium Level 9.0 mg/dL (8.5-10.1) 8.7 mg/dL (8.5-10.1) Total Bilirubin 0.2 mg/dL (0.2-1.0) 0.2 mg/dL (0.2-1.0) Aspartate Amino Transf (AST/SGOT) 37 U/L (15-37) 31 U/L (15-37) Alanine Aminotransferase (ALT/SGPT) 33 U/L (16-63) 31 U/L (16-63) Alkaline Phosphatase 84 U/L (46-116) 75 U/L (46-116) Total Protein 8.2 g/dL (6.4-8.2) 7.7 g/dL (6.4-8.2) Albumin 3.1 g/dL (3.4-5.0) 2.9 g/dL (3.4-5.0) Albumin/Globulin Ratio 0.6 (1.0-1.7) 0.6 (1.0-1.7) Laboratory Tests Test 04/10/20 05:00 White Blood Count 6.6 x10^3/uL (4.0-11.0) Red Blood Count 3.47 x10^6/uL (4.30-5.70) Hemoglobin 8.4 g/dL (13.0-17.5) Hematocrit 26.9 % (39.0-53.0) Mean Corpuscular Volume 77 fL (79-100) Mean Corpuscular Hemoglobin 24 pg (25-35) Mean Corpuscular Hemoglobin Concent 31 g/dL (31-37) Red Cell Distribution Width 18.4 % (11.5-14.5) Platelet Count 645 x10^3/uL (140-400) Neutrophils (%) (Auto) 37 % (31-73) Lymphocytes (%) (Auto) 51 % (24-48) Monocytes (%) (Auto) 7 % (0-9) Eosinophils (%) (Auto) 3 % (0-3) Basophils (%) (Auto) 1 % (0-3) Neutrophils # (Auto) 2.5 x10^3/uL (1.8-7.7) Lymphocytes # (Auto) 3.3 x10^3/uL (1.0-4.8) Monocytes # (Auto) 0.5 x10^3/uL (0.0-1.1) Eosinophils # (Auto) 0.2 x10^3/uL (0.0-0.7) Basophils # (Auto) 0.1 x10^3/uL (0.0-0.2) Sodium Level 140 mmol/L (136-145) Potassium Level 4.0 mmol/L (3.5-5.1) Chloride Level 106 mmol/L (98-107) Carbon Dioxide Level 24 mmol/L (21-32) Anion Gap 10 (6-14) Blood Urea Nitrogen 10 mg/dL (8-26) Creatinine 1.1 mg/dL (0.7-1.3) Estimated GFR (Cockcroft-Gault) 85.1 BUN/Creatinine Ratio 9 (6-20) Glucose Level 150 mg/dL (70-99) Calcium Level 8.7 mg/dL (8.5-10.1) Total Bilirubin 0.2 mg/dL (0.2-1.0) Aspartate Amino Transf (AST/SGOT) 31 U/L (15-37) Alanine Aminotransferase (ALT/SGPT) 31 U/L (16-63) Alkaline Phosphatase 75 U/L (46-116) Total Protein 7.7 g/dL (6.4-8.2) Albumin 2.9 g/dL (3.4-5.0) Albumin/Globulin Ratio 0.6 (1.0-1.7) Brief Hospital Course Mr. Beltre is a 54 old male, with prior extensive history, substance abuse, HIV, cardiac, s/p pacer and stents, with known cardiomyopathy had a cardiac arrest outside of hospital. CPR, revived, EMS to hosptial, intubated, in ICU for days, LONG QT, amio started, meds changed a little. he was very weak and marked fall risk, baseline strength may be very poor for his age, needs rehab, did fall here , needed bed alarm, he was tested for COVID x3, neg, anemia 9 here, then down to 7 range, imprvoed before DC, needs futher f/u with Cardio, may taper amio over time, to be seen by provider at skilled Discharge Information Condition at Discharge: Improved Follow Up: Weeks Disposition/Orders: D/C to Another Facility (skilled) Scheduled Abacavir/Dolutegravir/Lamivudi (Triumeq Tablet) 1 Each Tablet, 1 TAB PO DAILY for HIV TREATMENT for 30 Days, #30 Ref 0 (Reported) Entered as Reported by: HAILEE MENENDEZ on 01/31/20 0950 Amiodarone Hcl (Amiodarone Hcl) 200 Mg Tablet, 400 MG PO DAILY for cardiac arrythmia, , #60 Prescribed by: RONNIE DAVILA on 04/10/20 1011 Aspirin (Children's Aspirin) 81 Mg Tab.chew, 1 TAB PO DAILY for bld thinner/hx CAD/PCI for 30 Days, #30 Ref 0 (Reported) Entered as Reported by: BEATA MASSEY on 01/31/20 0046 Atorvastatin Calcium (Atorvastatin Calcium) 80 Mg Tablet, 80 MG PO QHS for FOR HIGH CHOLESTEROL for 90 Days, #90 Ref 3 Prescribed by: ALEXANDRA LEON MD on 02/02/20 1447 Last Action: Converted on 03/20/20 0941 by GREGORY REYNA APRN Clopidogrel Bisulfate (Clopidogrel) 75 Mg Tablet, 75 MG PO DAILYWBKFT for CAD with DASHA for 90 Days, #90 Ref 3 Prescribed by: ALEXANDRA LEON MD on 02/02/20 1447 Furosemide (Furosemide) 40 Mg Tablet, 40 MG PO DAILY for Chronic systolic CHF for 90 Days, #90 Ref 3 Prescribed by: ALEXANDRA LEON MD on 02/02/20 1447 Gabapentin (Gabapentin ) 300 Mg Capsule, 100 MG PO TID for NEUROGENIC PAIN, (Reported) Entered as Reported by: BEATA MASSEY on 01/31/20 0046 Lisinopril (Lisinopril) 10 Mg Tablet, 1 TAB PO DAILY for HTN for 90 Days, #90 Ref 3 Prescribed by: ALEXANDRA LEON MD on 02/02/20 1447 Metoprolol Succinate (Metoprolol Succinate ( Xl )) 25 Mg Tab.er.24h, 12.5 MG PO DAILY for CAD/CHF for 90 Days, #45 Ref 3 Prescribed by: ALEXANDRA LEON MD on 02/02/20 1447 Pantoprazole Sodium (Pantoprazole Sodium ) 40 Mg Tablet.dr, 40 MG PO BID for GERD, (Reported) Entered as Reported by: HAILEE MENENDEZ on 01/31/20 0950 Potassium Chloride (Klor-Con M20) 20 Meq Tab.er.prt, 20 MEQ PO TID for SUPPLEMENT , (Reported) Entered as Reported by: HAILEE MENENDEZ on 01/31/20 0950 Scheduled PRN Acetaminophen (Acetaminophen) 325 Mg Tablet, 1 TAB PO PRN Q6HRS PRN for pain or fever for 24 Days, #100 Ref 0 (Reported) Entered as Reported by: HAILEE MENENDEZ on 01/31/20 0950 Ipratropium/Albuterol Sulfate (Duoneb 0.5-3(2.5) Mg/3 Ml) 3 Ml Ampul.neb, 3 ML NEB PRN Q6HRS PRN for WHEEZING, (Reported) Entered as Reported by: HAILEE MENENDEZ on 01/31/20 0950 Tramadol Hcl (Tramadol Hcl) 50 Mg Tablet, 50 MG PO PRN Q6HRS PRN for MODERATE PAIN 4-6 for 6 Days, #15 Prescribed by: RONNIE DAVILA on 04/10/20 1011 Patient Instructions Patient Instructions > 30 minutes face to face discussed Justicifation of Admission Dx: Justifications for Admission: Justification of Admission Dx: Yes RONNIE DAVILA MD Apr 10, 2020 10:19
--- NOTE | 2020-04-10 10:38 | NUR ---
SS following up with discharge planning. SS reviewed pt chart and discussed with pt RN. Pt is currently on room air. COVID19 negative x2. Pt accepted at [facility], ; fax [phone]. Discharge orders received. SS phoned and faxed discharge orders and updated PT notes to [facility]. Leslie at [facility] reported that she was awaiting authorization from [place] [employer] and would contact SS with transportation time once authorization has been received. SS will continue to follow for discharge planning.
[2020-04-10 11:00] VITALS: BP 118/73
--- NOTE | 2020-04-10 12:02 | NUR ---
SS following up with discharge planning. Insurance authorization received for [facility]. Pt will discharge today and go to [facility] between 1500 and 1600. [place] to provide transportation. Pt, pt's RN, and pt's family notified.
[2020-04-10 15:00] VITALS: BP 107/71
--- NOTE | 2020-04-10 16:00 | NUR ---
[facility] Left neck central line and heart monitor removed. Patient off unit per wheelchair per transportation.
== END 2020-04-10 16:00 | DRG 871 ==
LOC: 1 WEST ICU 03:17 → 2 NORTH 04-05 18:47
PROVIDERS: ADMIT Internal Medicine; ATTEND Internal Medicine
PROC: 5A12012 Performance of Cardiac Output, Single, Manual (ICD-10-PCS; principal; 2020-03-20)
PROC: 4B02XTZ Measurement of Cardiac Defibrillator, External Approach (ICD-10-PCS; 2020-03-20)
PROC: 4A023N7 Measurement of Cardiac Sampling and Pressure, Left Heart, Percutaneous Approach (ICD-10-PCS; 2020-03-27)
PROC: B2151ZZ Fluoroscopy of Left Heart using Low Osmolar Contrast (ICD-10-PCS; 2020-03-27)
PROC: 02HV33Z Insertion of Infusion Device into Superior Vena Cava, Percutaneous Approach (ICD-10-PCS; 2020-03-27)
PROC: B548ZZA Ultrasonography of Superior Vena Cava, Guidance (ICD-10-PCS; 2020-03-27)
PROC: B2111ZZ Fluoroscopy of Multiple Coronary Arteries using Low Osmolar Contrast (ICD-10-PCS; 2020-03-27)
DX: A41.9 Sepsis, unspecified organism (principal); J96.01 Acute respiratory failure with hypoxia; I46.9 Cardiac arrest, cause unspecified; I50.43 Acute on chronic combined systolic (congestive) and diastolic (congestive) heart failure; K31.811 Angiodysplasia of stomach and duodenum with bleeding; I49.01 Ventricular fibrillation; J18.9 Pneumonia, unspecified organism; G93.40 Encephalopathy, unspecified; N17.9 Acute kidney failure, unspecified; E87.0 Hyperosmolality and hypernatremia; G93.1 Anoxic brain damage, not elsewhere classified; I42.8 Other cardiomyopathies; I47.2 Ventricular tachycardia; F14.20 Cocaine dependence, uncomplicated; D63.8 Anemia in other chronic diseases classified elsewhere; I49.5 Sick sinus syndrome; I11.0 Hypertensive heart disease with heart failure; R62.7 Adult failure to thrive; I25.10 Atherosclerotic heart disease of native coronary artery without angina pectoris; Z95.5 Presence of coronary angioplasty implant and graft; I25.5 Ischemic cardiomyopathy; E83.42 Hypomagnesemia; E87.6 Hypokalemia; Z20.822 Contact with and (suspected) exposure to COVID-19; E78.5 Hyperlipidemia, unspecified; F17.210 Nicotine dependence, cigarettes, uncomplicated; I25.2 Old myocardial infarction; I48.91 Unspecified atrial fibrillation; Z79.02 Long term (current) use of antithrombotics/antiplatelets; R13.12 Dysphagia, oropharyngeal phase; Z82.49 Family history of ischemic heart disease and other diseases of the circulatory system; Z86.79 Personal history of other diseases of the circulatory system; Z95.0 Presence of cardiac pacemaker; Z99.2 Dependence on renal dialysis; F19.90 Other psychoactive substance use, unspecified, uncomplicated; Z91.14 Patient's other noncompliance with medication regimen
CPT/HCPCS: 93458; G0269; 36415; 36556; 36600; 70450; 71045; 74018; 74230; 76937; 80048; 80053; 80061; 80069; 81001; 82805; 82962; 83605; 83615; 83735; 83880; 83930; 83935; 84100; 84132; 84443; 84478; 84484; 85007; 85025; 85027; 85520; 85610; 85730; 87040; 87070; 87086; 87205; 87426; 93005; 93306; 93971; 94002; 94003; 94760; C1760; C1769; C1892; C9113; J0171; J0282; J0610; J1630; J1644; J1650; J1940; J2020; J2060; J2250; J2260; J2405; J2543; J2704; J3010; J3475; J3480; J3490; J7030; J7040; J7050; J7060; Q9967; U0003; 92526-GN; 92610-GN; 92611-GN; 97116-GP; 97530-GO; 97530-GP; 97535-GO; C1771; G0378

== ENCOUNTER 2020-04-21 16:00 | Emergency (ER) | payer MEDICAID ==
[~2020-04-21] VITALS: Ht 175.3 cm; Wt 76.6 kg
[~2020-04-21 16:00] MED LIST changes: +AMIO200T6 PO; +LISI-517 PO; +METO50TA4 PO
[2020-04-21 16:30] VITALS: BP 148/99
--- NOTE | 2020-04-21 17:03 | PHYS DOC ---
Past Medical History Past Medical History: Heart Disease, HIV, [place] Past Surgical History: Other Additional Past Surgical Histo: INGUINAL HERNIA REPAIR, cardiac cath with stents Smoking Status: Current Every Day Smoker Alcohol Use: None Drug Use: None General Adult EDM: Chief Complaint: SUTURE/STAPLE REMOVAL HPI: HPI: Patient is a 54 year old [f__sex] who presents with [] Review of Systems: Review of Systems: Constitutional: Denies fever or chills. [] Eyes: Denies change in visual acuity. [] HENT: Denies nasal congestion or sore throat. [] Respiratory: Denies cough or shortness of breath. [] Cardiovascular: Denies chest pain or edema. [] GI: Denies abdominal pain, nausea, vomiting, bloody stools or diarrhea. [] : Denies dysuria. [] Musculoskeletal: Denies back pain or joint pain. [] Integument: Denies rash. [] Neurologic: Denies headache, focal weakness or sensory changes. [] Endocrine: Denies polyuria or polydipsia. [] Lymphatic: Denies swollen glands. [] Psychiatric: Denies depression or anxiety. [] Heart Score: Risk Factors: Risk Factors: DM, Current or recent (<one month) smoker, HTN, HLP, family history of CAD, obesity. Risk Scores: Score 0 - 3: 2.5% MACE over next 6 weeks - Discharge Home Score 4 - 6: 20.3% MACE over next 6 weeks - Admit for Clinical Observation Score 7 - 10: 72.7% MACE over next 6 weeks - Early Invasive Strategies Allergies: Allergies: Allergies Coded Allergies Type Severity Reaction Last Updated Verified No Known Drug Allergies 01/30/20 No Physical Exam: PE: Constitutional: Well developed, well nourished, no acute distress, non-toxic ap pearance. HENT: Normocephalic, atraumatic, Eyes: EOMI, conjunctiva normal, no discharge. Neck: Normal range of motion, supple, Cardiovascular: S1/2 present, regular rhythm Lungs & Thorax: Speaking in full sentences, bilateral equal chest rise, no tach ypnea or increased work of breathing Abdomen: soft, no tenderness, Skin: Warm, dry, no erythema, no rash. [] Back: No tenderness, no CVA tenderness. [] Extremities: No tenderness, no cyanosis, no edema Neurologic: Alert and oriented X 3, normal motor function, normal sensory function, no focal deficits noted. [] Psychologic: Affect normal, judgement normal, mood normal. [] Current Patient Data: Vital Signs: Vital Signs Date Time Temp Pulse Resp B/P (MAP) Pulse Ox O2 Delivery O2 Flow Rate FiO2 04/21/20 16:30 98.1 99 16 148/99 (115) 98 98.1 EKG: EKG: [] Radiology/Procedures: Radiology/Procedures: [] Course & Med Decision Making: Course & Med Decision Making Pertinent Labs and Imaging studies reviewed. (See chart for details) Will discharge home with strict ED return precautions were given for []. Encouraged urgent outpatient follow-up with PMD and [specialist]. Life- threatening processes were considered but are low suspicion at this time, given history, physical exam and ED workup. Pt was educated on all prescription medications and adverse effects. All patient's questions were answered and pt was stable at time of discharge. Life/limb-threatening differential includes but is not limited to, erythema multiforme, mcduffie-erma syndrome, toxic epidermal necrolysis, staphylococcal scalded skin syndrome, necrotizing fasciitis/myositis/cellulitis, purpura fulminans, heparin or warfarin induced skin necrosis, angioedema, anaphylaxis drug rash, disseminated intravascular coagulation, disseminated gonococcal disease, vasculitis, septicemia, petechial disorder or coagulopathy, viral exanthem, Kawasaki's disease or life-threatening burn requiring burn center management or escharotomy. I spoken with the patient and her caregivers. I explained the patient's condition, diagnoses and treatment plan based on the information available to me at this time. I have answered the patient and her caregiver's questions and addressed any concerns. The patient and her caregivers have a good understanding of patient's diagnosis, condition and treatment plan as can be expected at this point. Vital signs have been stable. Patient's condition is stable and appropriate for discharge from the emergency department. Patient will pursue further outpatient evaluation with primary care physician or other designated or consulting physician as outlined in the discharge instruc tions. The patient and/or caregivers are agreeable to this plan of care and follow-up instructions have been explained in detail. The patient and/or caregivers have received these instructions in written form and have expressed an understanding of the discharge instructions. The patient and/or caregivers are aware that any significant change of condition or worsening of symptoms should prompt immediate return to this or the closest emergency department or call to [phone]. Pallavi Disclaimer: Pallavi Disclaimer: This electronic medical record was generated, in whole or in part, using a voice recognition dictation system. Departure Departure Impression: Primary Impression: Encounter for removal of sutures Additional Impression: Normal skin exam Disposition: 01 DC HOME SELF CARE/HOMELESS Condition: STABLE Referrals: NO PCP (PCP) FOLLOW UP WITH FAMILY MEDICINE: Family Medicine Address: [address] [place] [address] [place], [facility] [address] [place] [address] Patient Instructions: Suture Removal Additional Instructions: EMERGENCY DEPARTMENT GENERAL DISCHARGE INSTRUCTIONS Thank you for coming to Emergency Department (ED) today and trusting us with you care. We trust that you had a positive experience in our Emergency Department. If you wish to speak to the department management, you may call the Director at [phone]. YOUR FOLLOW UP INSTRUCTIONS ARE FOLLOWS: 1. Do you have a private Doctor? If you do not have a private doctor, please ask for a resource list of physicians or clinics that may be able to assist you with follow up care. 2. The Emergency Physicain has interpreted your x-rays. The X-Ray specialist will also review them. If there is a change in the findings, you will be notified in 48 hours when at all possible. 3. A lab test or culture has been done, your results will be reviewed and you will be notified if you need a change in treatment. ADDITIONAL INSTRUCTIONS AND INFORMATION: 1. Your care today has been supervised by a physician who is specially trained in emergency care. Many problems require more than one evaluation for a complete diagnosis and treatment. We recommend that you schedule your follow up appointment as recommended to ensure complete treatment of you illness or injury. If you are unable to obtain follow up care and continue to have a problem, or if your condition worsens, we recommend that you return to the ED. 2. We are not able to safely determine your condition over the phone nor are we able to give sound medical advice over the phone. For these safety reasons, if you call for medical advice we will ask you to come to the ED for further evaluation. 3. If you have any questions regarding these discharge instructions please call the ED at [phone]. SAFETY INFORMATION: In the interest of safety, wellness, and injury prevention; we encourage you to wear your sealbelt, if you smoke; quite smoking, and we encourage family to use a protective helmet for bicycling and other sporting events that present an increased risk for head injury. IF YOUR SYMPTOMS WORSEN OR NEW SYMPTOMS DEVELOP, OR YOU HAVE CONCERNS ABOUT YOUR CONDITION; OR IF YOUR CONDITION WORSENS WHILE YOU ARE WAITING FOR YOUR FOLLOW UP APPOINTMENT; EITHER CONTACT YOUR PRIMARY CARE DOCTOR, THE PHYSICIAN WHOSE NAME AND NUMBER YOU WERE GIVEN, OR RETURN TO THE ED IMMEDIATELY. [facility]OSIAN[facility] DO Apr 21, 2020 17:03
== END 2020-04-21 17:18 | disposition home or self-care (01) ==
LOC: ER 16:00
DX: M54.2 Cervicalgia (principal); I25.2 Old myocardial infarction; F17.200 Nicotine dependence, unspecified, uncomplicated; Z95.5 Presence of coronary angioplasty implant and graft
CPT/HCPCS: 99281